=== PATIENT | male | born 1990 | race Caucasian/White ===

== ENCOUNTER 2016-07-26 18:29 | Emergency (ER) | payer OTHER ==
[2016-07-26] MEDS ORDERED: DEXTROSE 50%-WATER 50 ML SYRINGE IVP STA (18:51)
[2016-07-26] MEDS ORDERED: ONDANSETRON 4 MG/2 ML VIAL IVP STA (18:51)
[2016-07-26] MEDS ORDERED: SODIUM CHLORIDE 0.9% 500 ML IV STA (18:51)
[2016-07-26 19:07] LABS: Glucose,Whole Blood 49 mg/dL (75-99)
--- NOTE | 2016-07-26 19:07 | ED ---
Nausea/Vomiting/Diarrhea HPI - General Chief complaint: Nausea/Vomiting/Diarrhea Stated complaint: Diabetes/Vomiting Time Seen by Provider: 07/26/16 18:51 Source: patient, RN notes reviewed Mode of arrival: wheelchair Limitations: no limitations - History of Present Illness Initial comments: This patient is a 26-year-old man with a history of diabetes who presents to be evaluated for nausea and vomiting. The patient states that he had been feeling in his usual state of health last night. He woke up this morning and then started having repeated episodes of vomiting. The patient states he is not able to keep down any fluids at all. When they checked his blood sugar this morning was reading high. He states he did take a shot of insulin. When the vomiting continued he came here to have evaluation and treatment. Patient is denying fevers or chills. No cough or shortness of breath. He does have some mild diffuse abdominal pain. No change in bowel movements. The patient states she had seen his clinic doctor last week over concerns about a possible toe infection, he states he was given some antibiotics and it is a bit better. MD complaint: nausea, vomiting -: hour(s) Description of Vomiting: food contents, watery Associated Abdominal Pain: Yes Location: diffuse Severity: mild Quality: aching Consistency: constant Improves with: none Worsens with: none Associated Symptoms: denies other symptoms - Related Data Home Medications Medication Instructions Recorded Confirmed Insulin Glargine [Lantus] 40 unit SQ DAILY@1500 04/26/14 07/26/16 Gabapentin [Neurontin] 100 mg PO DAILY PRN 07/26/16 07/26/16 Insulin Glulisine [Apidra] 15 unit SQ AC-TID 07/26/16 07/26/16 Previous Rx's Medication Instructions Recorded Ondansetron Odt [Zofran ODT] 4 mg PO Q8HR PRN #10 tab 07/26/16 Allergies Allergy/AdvReac Type Severity Reaction Status Date / Time latex Allergy Rash/Hives Verified 07/26/16 18:50 Review of Systems ROS Statement: Those systems with pertinent positive or pertinent negative responses have been documented in the HPI. ROS Other: All systems not noted in ROS Statement are negative. Constitutional: Denies: fever, chills, weakness Respiratory: Denies: cough, dyspnea, wheezes Cardiovascular: Denies: chest pain, edema, syncope Gastrointestinal: Reports: abdominal pain, nausea, vomiting. Denies: diarrhea, hematemesis, melena, hematochezia Genitourinary: Denies: dysuria, hematuria Musculoskeletal: Denies: back pain Skin: Reports: as per HPI, change in color (Left great toe) Neurological: Denies: headache, weakness, numbness Past Medical History Past Medical History: Asthma, Diabetes Mellitus History of Any Multi-Drug Resistant Organisms: MRSA Date of last positivie culture/infection: 04/26/2014 MDRO Source:: Face Past Surgical History: No Surgical Hx Reported Additional Past Surgical History / Comment(s): right hand, left leg, eustachian tubes Past Anesthesia/Blood Transfusion Reactions: No Reported Reaction Past Psychological History: Anxiety, Bipolar, Depression Additional Psychological History / Comment(s): patient states he has been diagnosed with anxiety/depression/bipolar but does not currently take any medications. Smoking Status: Current every day smoker Past Alcohol Use History: Rare Past Drug Use History: Marijuana - Past Family History Father Family Medical History: Hyperlipidemia, Hypertension Mother Family Medical History: COPD Additional Family Medical History / Comment(s): home O2, Brother(s) Family Medical History: No Reported History General Exam Limitations: no limitations General appearance: alert, in no apparent distress Head exam: Present: atraumatic, normocephalic Eye exam: Present: normal appearance. Absent: scleral icterus, conjunctival injection ENT exam: Present: mucous membranes dry Neck exam: Present: normal inspection, full ROM Respiratory exam: Present: normal lung sounds bilaterally. Absent: respiratory distress, wheezes, rales, rhonchi, stridor Cardiovascular Exam: Present: normal rhythm, tachycardia, systolic murmur ( Grade 1/6 systolic ejection murmur). Absent: diastolic murmur, rubs, gallop GI/Abdominal exam: Present: soft. Absent: distended, tenderness, guarding, rebound, mass Extremities exam: Present: normal inspection, normal capillary refill, other ( Inspection of the patient's great toe does not show any apparent cellulitis or paronychia). Absent: pedal edema, calf tenderness Neurological exam: Present: alert Skin exam: Present: warm, dry, intact, normal color. Absent: rash Course Vital Signs 07/26/16 07/26/16 18:31 20:55 Temperature 97.5 F L 98.6 F Pulse Rate 108 H 80 Respiratory 20 18 Rate Blood Pressure 159/85 146/73 O2 Sat by Pulse 99 98 Oximetry Medical Decision Making - Medical Decision Making Patient's 26-year-old male diabetes who comes in for multiple rounds of vomiting. He did respond well to antiemetics and IV fluids. He was then tolerating oral intake. He felt well enough to go home. We did discuss return parameters and appropriate follow-up. - Lab Data Result diagrams: 07/26/16 19:00 07/26/16 19:00 Lab Results 07/26/16 07/26/16 07/26/16 Range/Units 19:00 19:00 19:00 WBC 14.4 H (3.8-10.6) k/uL RBC 5.40 (4.30-5.90) m/uL Hgb 16.2 (13.0-17.5) gm/dL Hct 50.1 (39.0-53.0) % MCV 92.7 (80.0-100.0) fL MCH 30.0 (25.0-35.0) pg MCHC 32.4 (31.0-37.0) g/dL RDW 13.7 (11.5-15.5) % Plt Count 405 (150-450) k/uL Neutrophils % 76 % Lymphocytes % 16 % Monocytes % 4 % Eosinophils % 0 % Basophils % 1 % Neutrophils # 11.0 H (1.3-7.7) k/uL Lymphocytes # 2.4 (1.0-4.8) k/uL Monocytes # 0.6 (0-1.0) k/uL Eosinophils # 0.1 (0-0.7) k/uL Basophils # 0.1 (0-0.2) k/uL Sodium 146 H (137-145) mmol/L Potassium 3.8 (3.5-5.1) mmol/L Chloride 106 (98-107) mmol/L Carbon Dioxide 26 (22-30) mmol/L Anion Gap 14 mmol/L BUN 23 H (9-20) mg/dL Creatinine 0.60 L (0.66-1.25) mg/dL Est GFR (MDRD) Af Amer >60 (>60 ml/min/1.73 sqM) Est GFR (MDRD) Non-Af >60 (>60 ml/min/1.73 sqM) Glucose 50 L* (74-99) mg/dL POC Glucose (mg/dL) (75-99) mg/dL POC Glu Mgmt Analyst ID Calcium 10.2 (8.4-10.2) mg/dL Total Bilirubin 0.7 (0.2-1.3) mg/dL AST 32 (17-59) U/L ALT 37 (21-72) U/L Alkaline Phosphatase 130 H (38-126) U/L Total Protein 7.9 (6.3-8.2) g/dL Albumin 4.6 (3.5-5.0) g/dL Amylase 53 (30-110) U/L Lipase 25 (23-300) U/L Urine Color Yellow Urine Appearance Clear (Clear) Urine pH 6.0 (5.0-8.0) Ur Specific [place] 1.024 (1.001-1.035) Urine Protein Trace H (Negative) Urine Glucose (UA) 4+ H (Negative) Urine Ketones 2+ H (Negative) Urine Blood Negative (Negative) Urine Nitrate Negative (Negative) Urine Bilirubin Negative (Negative) Urine Urobilinogen <2.0 (<2.0) mg/dL Ur Leukocyte Esterase Negative (Negative) Acetone, Qual Negative (Negative) 07/26/16 07/26/16 Range/Units 19:05 19:30 WBC (3.8-10.6) k/uL RBC (4.30-5.90) m/uL Hgb (13.0-17.5) gm/dL Hct (39.0-53.0) % MCV (80.0-100.0) fL MCH (25.0-35.0) pg MCHC (31.0-37.0) g/dL RDW (11.5-15.5) % Plt Count (150-450) k/uL Neutrophils % % Lymphocytes % % Monocytes % % Eosinophils % % Basophils % % Neutrophils # (1.3-7.7) k/uL Lymphocytes # (1.0-4.8) k/uL Monocytes # (0-1.0) k/uL Eosinophils # (0-0.7) k/uL Basophils # (0-0.2) k/uL Sodium (137-145) mmol/L Potassium (3.5-5.1) mmol/L Chloride (98-107) mmol/L Carbon Dioxide (22-30) mmol/L Anion Gap mmol/L BUN (9-20) mg/dL Creatinine (0.66-1.25) mg/dL Est GFR (MDRD) Af Amer (>60 ml/min/1.73 sqM) Est GFR (MDRD) Non-Af (>60 ml/min/1.73 sqM) Glucose (74-99) mg/dL POC Glucose (mg/dL) 49 L 167 H (75-99) mg/dL POC Glu Mgmt Analyst ID Ann Marie Shaver Parker Calcium (8.4-10.2) mg/dL Total Bilirubin (0.2-1.3) mg/dL AST (17-59) U/L ALT (21-72) U/L Alkaline Phosphatase (38-126) U/L Total Protein (6.3-8.2) g/dL Albumin (3.5-5.0) g/dL Amylase (30-110) U/L Lipase (23-300) U/L Urine Color Urine Appearance (Clear) Urine pH (5.0-8.0) Ur Specific [place] (1.001-1.035) Urine Protein (Negative) Urine Glucose (UA) (Negative) Urine Ketones (Negative) Urine Blood (Negative) Urine Nitrate (Negative) Urine Bilirubin (Negative) Urine Urobilinogen (<2.0) mg/dL Ur Leukocyte Esterase (Negative) Acetone, Qual (Negative) Disposition Clinical Impression: Vomiting Disposition: HOME SELF-CARE Condition: Fair Instructions: Acute Nausea and Vomiting (ED) Prescriptions: Ondansetron Odt [Zofran ODT] 4 mg PO Q8HR PRN #10 tab PRN Reason: Nausea Referrals: Azra Stewart MD [Primary Care Provider] - 1-2 days
[2016-07-26 19:24] LABS: Basophils # (A) 0.1 k/uL (0-0.2); Basophils % (A) 1 %; CH 31.4; CHCM 34.1; Eosinophils # (A) 0.1 k/uL (0-0.7); Eosinophils % (A) 0 %; HCT 50.1 % (39.0-53.0); HDW 2.39; HGB 16.2 gm/dL (13.0-17.5); Luc # (Auto) 0.31; Luc % (Auto) 2; Lymphocytes # (A) 2.4 k/uL (1.0-4.8); Lymphocytes % (A) 16 %; MCHC 32.4 g/dL (31.0-37.0); MCV 92.7 fL (80.0-100.0); Mean Platelet Volume 8.6; Monocytes # (A) 0.6 k/uL (0-1.0); Monocytes % (A) 4 %; Neutrophils % (A) 76 %; RDW 13.7 % (11.5-15.5); WBC 14.4 k/uL (3.8-10.6); WBC (Perox) 13.71
[2016-07-26 19:29] LABS: Appearance,Urine Clear (Clear); Bilirubin,Urine Negative (Negative); Glucose,Urine (UA) 4+ (Negative); Leukocyte Esterase,Urine Negative (Negative); Nitrite,Urine Negative (Negative); Protein,Urine Trace (Negative); Specific Gravity,Urine 1.024 (1.001-1.035); UA Billing (MACRO vs. MICRO) CHEM; Urobilinogen,Urine <2.0 mg/dL (<2.0)
[2016-07-26 19:32] LABS: Glucose,Whole Blood 167 mg/dL (75-99)
[2016-07-26 19:36] LABS: ALT 37 U/L (21-72); AST 32 U/L (17-59); Alkaline Phosphatase 130 U/L (38-126); Amylase 53 U/L (30-110); Anion Gap 14 mmol/L; Blood Urea Nitrogen 23 mg/dL (9-20); Calcium 10.2 mg/dL (8.4-10.2); Carbon Dioxide 26 mmol/L (22-30); Chloride 106 mmol/L (98-107); Non-African American GFR(MDRD) >60 (>60 ml/min/1.73 sqM); Potassium 3.8 mmol/L (3.5-5.1); Sodium 146 mmol/L (137-145); Total Bilirubin 0.7 mg/dL (0.2-1.3); Total Protein 7.9 g/dL (6.3-8.2)
[2016-07-26 19:38] LABS: Glucose 50 mg/dL (74-99)
[2016-07-26 20:07] LABS: Ketones,Urine 2+ (Negative)
[2016-07-26 20:55] VITALS: BP 146/73; PULSE 80; RESP 18; TEMP 98.6
[2016-07-27 07:45] LABS: Glucose,Whole Blood 55 mg/dL (75-99)
== END 2016-07-26 20:56 | disposition home or self-care (01) ==
LOC: EC 18:29
DX: R11.2 Nausea with vomiting, unspecified (principal); R10.9 Unspecified abdominal pain; E11.9 Type 2 diabetes mellitus without complications; F17.200 Nicotine dependence, unspecified, uncomplicated; Z79.4 Long term (current) use of insulin; Z79.899 Other long term (current) drug therapy; Z91.040 Latex allergy status
CPT/HCPCS: 36415; 80053; 82150; 82009; 83690; 85025; 81003; 99284; 96374; 96375; 96361 ×2; J2405

== ENCOUNTER 2017-06-03 16:38 | Emergency (ER) | payer OTHER ==
[2017-06-03] MEDS ORDERED: SODIUM CHLORIDE 0.9% 1,000 ML IV STA (17:17)
[2017-06-03] MEDS ORDERED: ONDANSETRON 4 MG/2 ML VIAL IVP STA (17:17)
--- NOTE | 2017-06-03 17:23 | ED ---
General Adult HPI - General Chief complaint: Abdominal Pain Stated complaint: FLU Time Seen by Provider: 06/03/17 16:50 Source: patient, EMS, RN notes reviewed Mode of arrival: EMS Limitations: no limitations - History of Present Illness Initial comments: This is a 27-year-old male who presents emergency Department complaining of vomiting since Tuesday. Patient states his been nonstop and cannot any liquids or food. Patient denies any diarrhea. Patient complains of epigastric abdominal pain but states his whole abdomen is somewhat tender from all the vomiting. Patient denies any fever chills. Patient denies any chest pain palpitations difficulty breathing or shortness of breath. Patient denies drinking any alcohol. Patient states he is a diabetic. Patient denies any injury or trauma to the area. - Related Data Home Medications Medication Instructions Recorded Confirmed Insulin Glargine [Lantus] 40 unit SQ DAILY@1500 04/26/14 06/03/17 Insulin Glulisine [Apidra] 15 unit SQ AC-TID 07/26/16 06/03/17 Previous Rx's Medication Instructions Recorded Ondansetron [Zofran ODT] 4 mg PO Q8HR PRN #10 06/03/17 Allergies Allergy/AdvReac Type Severity Reaction Status Date / Time latex Allergy Rash/Hives Verified 06/03/17 17:12 Review of Systems ROS Statement: Those systems with pertinent positive or pertinent negative responses have been documented in the HPI. ROS Other: All systems not noted in ROS Statement are negative. Past Medical History Past Medical History: Asthma, Diabetes Mellitus History of Any Multi-Drug Resistant Organisms: MRSA Date of last positivie culture/infection: 04/26/2014 MDRO Source:: Face Past Surgical History: No Surgical Hx Reported Additional Past Surgical History / Comment(s): right hand, left leg, eustachian tubes Past Anesthesia/Blood Transfusion Reactions: No Reported Reaction Past Psychological History: Anxiety, Bipolar, Depression Smoking Status: Current every day smoker Past Alcohol Use History: None Reported Past Drug Use History: Marijuana - Past Family History Father Family Medical History: Hyperlipidemia, Hypertension Mother Family Medical History: COPD Additional Family Medical History / Comment(s): home O2, Brother(s) Family Medical History: No Reported History General Exam - General Exam Comments Initial Comments: GENERAL: Patient is well-developed and well-nourished. Patient is nontoxic and well- hydrated and is in mild distress. ENT: Neck is soft and supple. No significant lymphadenopathy is noted. Oropharynx is clear. Moist mucous membranes. Neck has full range of motion without eliciting any pain. EYES: The sclera were anicteric and conjunctiva were pink and moist. Extraocular movements were intact and pupils were equal round and reactive to light. Eyelids were unremarkable. PULMONARY: Unlabored respirations. Good breath sounds bilaterally. No audible rales rhonchi or wheezing was noted. CARDIOVASCULAR: There is a regular rate and rhythm without any murmurs gallops or rubs. ABDOMEN: Epigastric abdominal pain no rebound or guarding. SKIN: Skin is clear with no lesions or rashes and otherwise unremarkable. NEUROLOGIC: Patient is alert and oriented x3. Cranial nerves II through XII are grossly intact. Motor and sensory are also intact. Normal speech, volume and content. Symmetrical smile. MUSCULOSKELETAL: Normal extremities with adequate strength and full range of motion. No lower extremity swelling or edema. No calf tenderness. LYMPHATICS: No significant lymphadenopathy is noted PSYCHIATRIC: Normal psychiatric evaluation. Limitations: no limitations Course Vital Signs 06/03/17 06/03/17 06/03/17 16:48 16:50 18:13 Temperature 98.4 F Pulse Rate 82 80 77 Respiratory 17 20 18 Rate Blood Pressure 177/82 177/82 O2 Sat by Pulse 96 100 99 Oximetry Medical Decision Making - Medical Decision Making Patient got Zofran and a liter of fluid to the emergency department was feeling considerably better. On reexamination of the patient's abdomen was only mildly tender. - Lab Data Result diagrams: 06/03/17 17:45 06/03/17 17:45 Lab Results 06/03/17 06/03/17 Range/Units 17:45 17:45 WBC 11.5 H (3.8-10.6) k/uL RBC 5.27 (4.30-5.90) m/uL Hgb 16.1 (13.0-17.5) gm/dL Hct 47.4 (39.0-53.0) % MCV 89.9 (80.0-100.0) fL MCH 30.5 (25.0-35.0) pg MCHC 33.9 (31.0-37.0) g/dL RDW 12.9 (11.5-15.5) % Plt Count 296 (150-450) k/uL Neutrophils % 82 % Lymphocytes % 12 % Monocytes % 4 % Eosinophils % 0 % Basophils % 0 % Neutrophils # 9.4 H (1.3-7.7) k/uL Lymphocytes # 1.3 (1.0-4.8) k/uL Monocytes # 0.5 (0-1.0) k/uL Eosinophils # 0.0 (0-0.7) k/uL Basophils # 0.0 (0-0.2) k/uL Sodium 139 (137-145) mmol/L Potassium 3.4 L (3.5-5.1) mmol/L Chloride 101 (98-107) mmol/L Carbon Dioxide 28 (22-30) mmol/L Anion Gap 10 mmol/L BUN 17 (9-20) mg/dL Creatinine 0.65 L (0.66-1.25) mg/dL Est GFR (MDRD) Af Amer >60 (>60 ml/min/1.73 sqM) Est GFR (MDRD) Non-Af >60 (>60 ml/min/1.73 sqM) Glucose 113 H (74-99) mg/dL Calcium 9.6 (8.4-10.2) mg/dL Total Bilirubin 0.7 (0.2-1.3) mg/dL AST 29 (17-59) U/L ALT 39 (21-72) U/L Alkaline Phosphatase 101 (38-126) U/L Total Protein 7.1 (6.3-8.2) g/dL Albumin 4.1 (3.5-5.0) g/dL Amylase 61 (30-110) U/L Lipase 18 L (23-300) U/L Disposition Clinical Impression: Acute vomiting Disposition: HOME SELF-CARE Condition: Good Instructions: Acute Nausea and Vomiting (ED) Prescriptions: Ondansetron [Zofran ODT] 4 mg PO Q8HR PRN #10 PRN Reason: Nausea Referrals: Azra Stewart MD [Primary Care Provider] - 1-2 days Time of Disposition: 18:50
[2017-06-03 17:54] LABS: Basophils % (A) 0 %; Eosinophils % (A) 0 %; HCT 47.4 % (39.0-53.0); HGB 16.1 gm/dL (13.0-17.5); Lymphocytes # (A) 1.3 k/uL (1.0-4.8); Lymphocytes % (A) 12 %; MCH 30.5 pg (25.0-35.0); MCHC 33.9 g/dL (31.0-37.0); MCV 89.9 fL (80.0-100.0); Mean Platelet Volume 7.2; Monocytes # (A) 0.5 k/uL (0-1.0); Monocytes % (A) 4 %; Neutrophils # (A) 9.4 k/uL (1.3-7.7); Neutrophils % (A) 82 %; Platelet Count 296 k/uL (150-450); RBC 5.27 m/uL (4.30-5.90); RDW 12.9 % (11.5-15.5); WBC 11.5 k/uL (3.8-10.6)
[2017-06-03 18:09] LABS: ALT 39 U/L (21-72); AST 29 U/L (17-59); Albumin 4.1 g/dL (3.5-5.0); Alkaline Phosphatase 101 U/L (38-126); Amylase 61 U/L (30-110); Anion Gap 10 mmol/L; Blood Urea Nitrogen 17 mg/dL (9-20); Calcium 9.6 mg/dL (8.4-10.2); Carbon Dioxide 28 mmol/L (22-30); Chloride 101 mmol/L (98-107); Glucose 113 mg/dL (74-99); Lipase 18 U/L (23-300); Potassium 3.4 mmol/L (3.5-5.1); Sodium 139 mmol/L (137-145); Total Bilirubin 0.7 mg/dL (0.2-1.3); Total Protein 7.1 g/dL (6.3-8.2)
[2017-06-03 18:16] VITALS: RESP 18
--- NOTE | 2017-06-03 18:46 | XR ---
EXAMINATION TYPE: XR KUB DATE OF EXAM: 06/03/2017 6:35 PM CLINICAL HISTORY: Nausea, vomiting and abdominal pain for 3 days TECHNIQUE: Single upright KUB image of the abdomen is obtained. COMPARISON: 02/08/2015. FINDINGS: There is a paucity of gas within the upper abdomen. No dilated loops of small bowel or larg e bowel. Gas and fecal material is seen in non-distended colon. No pneumoperitoneum or abnormal calci fications. The lung bases are clear and the osseous structures are intact. Mild levoscoliotic curvatu re of the lumbar spine is likely partially positional although upright images are obtained. Incidenta l note is made of partial sacralization of L5 vertebral body on the left. IMPRESSION: Nonobstructive bowel gas pattern.
[2017-06-03 19:34] VITALS: BP 152/94; PULSE 75; TEMP 98.9
== END 2017-06-03 19:45 | disposition home or self-care (01) ==
LOC: EC 16:38
DX: R11.10 Vomiting, unspecified (principal); R10.13 Epigastric pain; E11.9 Type 2 diabetes mellitus without complications; F17.200 Nicotine dependence, unspecified, uncomplicated; Z79.4 Long term (current) use of insulin; Z91.040 Latex allergy status; Z86.14 Personal history of Methicillin resistant Staphylococcus aureus infection
CPT/HCPCS: 36415; 80053; 82150; 83690; 85025; 74000; 99284; 96374; 96361; J2405

== ENCOUNTER 2017-07-28 23:09 | Emergency (ER) | payer OTHER ==
[2017-07-28 23:30] LABS: Glucose,Whole Blood 80 mg/dL (75-99)
[2017-07-28] MEDS ORDERED: SODIUM CHLORIDE 0.9% 2,000 ML IV ONE (23:45)
[2017-07-28] MEDS ORDERED: SODIUM CHLORIDE 0.9% 1,000 ML IV SCH (23:45)
--- NOTE | 2017-07-28 23:50 | ED ---
General Adult HPI - General Chief complaint: Nausea/Vomiting/Diarrhea Stated complaint: Vomiting/Fever Time Seen by Provider: 07/28/17 23:34 Source: patient Mode of arrival: ambulatory Limitations: no limitations - History of Present Illness Initial comments: Patient is a 27-year-old male with a history of type 1 diabetes who presents with a chief complaint of nausea vomiting and abdominal pain for 4 days. Patient states he came to the emergency department today because he is concerned that his sugars have been very labile. Patient cannot identify an inciting incident. There are no aggravating or alleviating factors. Timing is constant. Patient complains of headache, abdominal pain, nausea and vomiting. The patient states he has been having trouble keeping solids or liquids down. He states that his urine has become very dark. Patient states that he has been in DKA before and that's what he is concerned for today. Patient states his last dose of insulin was 20 units of regular insulin at about 7:00 this evening - Related Data Home Medications Medication Instructions Recorded Confirmed Insulin Glargine [Lantus] 40 unit SQ DAILY@1500 04/26/14 07/28/17 Insulin Glulisine [Apidra] 15 unit SQ AC-TID 07/26/16 07/28/17 Bismuth Subsalicylate 262 mg PO Q4H PRN 07/28/17 07/28/17 [Pepto-Bismol] Previous Rx's Medication Instructions Recorded Ondansetron [Zofran ODT] 4 mg PO Q8HR #20 tab 07/29/17 Allergies Allergy/AdvReac Type Severity Reaction Status Date / Time latex Allergy Rash/Hives Verified 07/28/17 23:29 Review of Systems ROS Statement: Those systems with pertinent positive or pertinent negative responses have been documented in the HPI. ROS Other: All systems not noted in ROS Statement are negative. Constitutional: Reports: fever, chills Respiratory: Reports: cough Gastrointestinal: Reports: abdominal pain, nausea, vomiting Genitourinary: Reports: dysuria, frequency Neurological: Reports: headache Past Medical History Past Medical History: Asthma, Diabetes Mellitus History of Any Multi-Drug Resistant Organisms: MRSA Date of last positivie culture/infection: 04/26/2014 MDRO Source:: Face Past Surgical History: No Surgical Hx Reported Additional Past Surgical History / Comment(s): right hand, left leg, eustachian tubes Past Anesthesia/Blood Transfusion Reactions: No Reported Reaction Past Psychological History: Anxiety, Bipolar, Depression Smoking Status: Current every day smoker Past Alcohol Use History: None Reported Past Drug Use History: Marijuana - Past Family History Father Family Medical History: Hyperlipidemia, Hypertension Mother Family Medical History: COPD Additional Family Medical History / Comment(s): home O2, Brother(s) Family Medical History: No Reported History General Exam Limitations: no limitations General appearance: alert, in no apparent distress Head exam: Present: atraumatic, normocephalic Eye exam: Present: normal appearance ENT exam: Present: mucous membranes moist Neck exam: Present: normal inspection Respiratory exam: Present: normal lung sounds bilaterally. Absent: respiratory distress Cardiovascular Exam: Present: normal rhythm, tachycardia GI/Abdominal exam: Present: soft, tenderness (Patient has generalized abdominal pain to palpation). Absent: distended Rectal exam: Present: deferred Extremities exam: Present: normal inspection Back exam: Absent: CVA tenderness (R), CVA tenderness (L) Neurological exam: Present: alert, oriented X3 Psychiatric exam: Present: normal affect, normal mood Skin exam: Present: warm, dry, intact Course Vital Signs 07/28/17 23:13 Temperature 98.4 F Pulse Rate 120 H Respiratory 16 Rate Blood Pressure 138/98 O2 Sat by Pulse 100 Oximetry Medical Decision Making - Medical Decision Making Patient presents with a chief complaint of nausea, vomiting, abdominal pain, and headache for 4 days. Patient is a type I diabetic. On initial evaluation, patient is tachycardic, sustained at 120 bpm. Vital signs are otherwise stable. Patient is in no acute distress. At this time there is concern for DKA , blood sugar on arrival is 80 however patient has been increasing his insulin at home. Patient will be evaluated with basic labs, acetone, VBG, and urinalysis. 12:56 AM Lab evaluation of this patient is remarkable for a mild leukocytosis of 14.5. Electrolytes and renal function are within normal limits, anion gap is 15. Patient does not have any ketones in his blood. Urinalysis for infection. Chest x-ray shows no acute process. Currently pending venous blood gas. Reexamination, patient remained stable. At this time, DKA appears less likely. Patient has had 2 L of IV fluid. 1:15 AM Venous blood gas shows a pH of 7.46. At this time, patient is not in DKA. He' ll be given the rest of his fluid bolus, he is able to take by mouth intake. Prescriptions written for Zofran. Patient instructed to follow up with his primary care doctor in 1-2 days or return to the emergency department for reevaluation in 12-24 hours if symptoms are worse. - Lab Data Result diagrams: 07/29/17 00:00 07/29/17 00:00 Lab Results 07/28/17 07/28/17 07/29/17 Range/Units 00:26 23:26 00:00 WBC (3.8-10.6) k/uL RBC (4.30-5.90) m/uL Hgb (13.0-17.5) gm/dL Hct (39.0-53.0) % MCV (80.0-100.0) fL MCH (25.0-35.0) pg MCHC (31.0-37.0) g/dL RDW (11.5-15.5) % Plt Count (150-450) k/uL Neutrophils % % Lymphocytes % % Monocytes % % Eosinophils % % Basophils % % Neutrophils # (1.3-7.7) k/uL Lymphocytes # (1.0-4.8) k/uL Monocytes # (0-1.0) k/uL Eosinophils # (0-0.7) k/uL Basophils # (0-0.2) k/uL VBG pH 7.46 H (7.31-7.41) VBG pCO2 45 (37-51) mmHg VBG HCO3 32 H (24-28) mmol/L Sodium 142 (137-145) mmol/L Potassium 3.8 (3.5-5.1) mmol/L Chloride 97 L (98-107) mmol/L Carbon Dioxide 30 (22-30) mmol/L Anion Gap 15 mmol/L BUN 30 H (9-20) mg/dL Creatinine 0.60 L (0.66-1.25) mg/dL Est GFR (MDRD) Af Amer >60 (>60 ml/min/1.73 sqM) Est GFR (MDRD) Non-Af >60 (>60 ml/min/1.73 sqM) Glucose 102 H (74-99) mg/dL POC Glucose (mg/dL) 80 (75-99) mg/dL POC Glu Equipment Maintenance Superintendent ID Denise Salazar Calcium 10.3 H (8.4-10.2) mg/dL Total Bilirubin 1.1 (0.2-1.3) mg/dL AST 23 (17-59) U/L ALT 16 L (21-72) U/L Alkaline Phosphatase 128 H (38-126) U/L Total Protein 8.3 H (6.3-8.2) g/dL Albumin 4.7 (3.5-5.0) g/dL Lipase 30 (23-300) U/L Urine Color Urine Appearance (Clear) Urine pH (5.0-8.0) Ur Specific [place] (1.001-1.035) Urine Protein (Negative) Urine Glucose (UA) (Negative) Urine Ketones (Negative) Urine Blood (Negative) Urine Nitrite (Negative) Urine Bilirubin (Negative) Urine Urobilinogen (<2.0) mg/dL Ur Leukocyte Esterase (Negative) Urine RBC (0-5) /hpf Urine WBC (0-5) /hpf Urine Bacteria (None) /hpf Urine Mucus (None) /hpf Acetone, Qual Negative (Negative) Influenza Type A RNA (Not Detectd) Influenza Type B (PCR) (Not Detectd) 07/29/17 07/29/17 07/29/17 Range/Units 00:00 00:00 00:00 WBC 14.8 H (3.8-10.6) k/uL RBC 5.75 (4.30-5.90) m/uL Hgb 17.3 (13.0-17.5) gm/dL Hct 54.1 H (39.0-53.0) % MCV 94.2 (80.0-100.0) fL MCH 30.1 (25.0-35.0) pg MCHC 32.0 (31.0-37.0) g/dL RDW 12.9 (11.5-15.5) % Plt Count 330 (150-450) k/uL Neutrophils % 78 % Lymphocytes % 13 % Monocytes % 6 % Eosinophils % 1 % Basophils % 0 % Neutrophils # 11.5 H (1.3-7.7) k/uL Lymphocytes # 1.9 (1.0-4.8) k/uL Monocytes # 0.9 (0-1.0) k/uL Eosinophils # 0.1 (0-0.7) k/uL Basophils # 0.0 (0-0.2) k/uL VBG pH (7.31-7.41) VBG pCO2 (37-51) mmHg VBG HCO3 (24-28) mmol/L Sodium (137-145) mmol/L Potassium (3.5-5.1) mmol/L Chloride (98-107) mmol/L Carbon Dioxide (22-30) mmol/L Anion Gap mmol/L BUN (9-20) mg/dL Creatinine (0.66-1.25) mg/dL Est GFR (MDRD) Af Amer (>60 ml/min/1.73 sqM) Est GFR (MDRD) Non-Af (>60 ml/min/1.73 sqM) Glucose (74-99) mg/dL POC Glucose (mg/dL) (75-99) mg/dL POC Glu Equipment Maintenance Superintendent ID Calcium (8.4-10.2) mg/dL Total Bilirubin (0.2-1.3) mg/dL AST (17-59) U/L ALT (21-72) U/L Alkaline Phosphatase (38-126) U/L Total Protein (6.3-8.2) g/dL Albumin (3.5-5.0) g/dL Lipase (23-300) U/L Urine Color Yellow Urine Appearance Clear (Clear) Urine pH 7.0 (5.0-8.0) Ur Specific [place] 1.027 (1.001-1.035) Urine Protein 2+ H (Negative) Urine Glucose (UA) 2+ H (Negative) Urine Ketones 3+ H (Negative) Urine Blood Negative (Negative) Urine Nitrite Negative (Negative) Urine Bilirubin Negative (Negative) Urine Urobilinogen 3.0 (<2.0) mg/dL Ur Leukocyte Esterase Negative (Negative) Urine RBC <1 (0-5) /hpf Urine WBC 1 (0-5) /hpf Urine Bacteria Rare H (None) /hpf Urine Mucus Rare H (None) /hpf Acetone, Qual (Negative) Influenza Type A RNA Not Detected (Not Detectd) Influenza Type B (PCR) Not Detected (Not Detectd) Disposition Clinical Impression: Dehydration, Nausea and vomiting Disposition: HOME SELF-CARE Condition: Good Instructions: Acute Nausea and Vomiting (ED) Prescriptions: Ondansetron [Zofran ODT] 4 mg PO Q8HR #20 tab Referrals: Azra Stewart MD [Primary Care Provider] - 1-2 days
[2017-07-29] MEDS ORDERED: ONDANSETRON 4 MG/2 ML VIAL IVP STA (00:16)
[2017-07-29 00:23] LABS: Basophils % (A) 0 %; Eosinophils # (A) 0.1 k/uL (0-0.7); Eosinophils % (A) 1 %; HCT 54.1 % (39.0-53.0); HGB 17.3 gm/dL (13.0-17.5); Lymphocytes # (A) 1.9 k/uL (1.0-4.8); Lymphocytes % (A) 13 %; MCH 30.1 pg (25.0-35.0); MCV 94.2 fL (80.0-100.0); Mean Platelet Volume 7.2; Monocytes # (A) 0.9 k/uL (0-1.0); Monocytes % (A) 6 %; Neutrophils # (A) 11.5 k/uL (1.3-7.7); Neutrophils % (A) 78 %; Platelet Count 330 k/uL (150-450); RBC 5.75 m/uL (4.30-5.90); RDW 12.9 % (11.5-15.5); WBC 14.8 k/uL (3.8-10.6)
[2017-07-29 00:24] LABS: Appearance,Urine Clear (Clear); Bacteria,Urine Rare /hpf; Bilirubin,Urine Negative (Negative); Blood,Urine Negative (Negative); Color,Urine Yellow; Glucose,Urine (UA) 2+ (Negative); Leukocyte Esterase,Urine Negative (Negative); Mucus,Urine Rare /hpf; Nitrite,Urine Negative (Negative); Protein,Urine 2+ (Negative); RBC,Urine <1 /hpf (0-5); Specific Gravity,Urine 1.027 (1.001-1.035); WBC,Urine 1 /hpf (0-5)
[2017-07-29 00:33] LABS: Ketones,Urine 3+ (Negative)
[2017-07-29 00:36] LABS: ALT 16 U/L (21-72); AST 23 U/L (17-59); Albumin 4.7 g/dL (3.5-5.0); Alkaline Phosphatase 128 U/L (38-126); Anion Gap 15 mmol/L; Blood Urea Nitrogen 30 mg/dL (9-20); Calcium 10.3 mg/dL (8.4-10.2); Carbon Dioxide 30 mmol/L (22-30); Chloride 97 mmol/L (98-107); Glucose 102 mg/dL (74-99); Lipase 30 U/L (23-300); Potassium 3.8 mmol/L (3.5-5.1); Sodium 142 mmol/L (137-145); Total Bilirubin 1.1 mg/dL (0.2-1.3); Total Protein 8.3 g/dL (6.3-8.2)
[2017-07-29 00:56] LABS: VBG PH 7.46 (7.31-7.41)
--- NOTE | 2017-07-29 01:06 | XR ---
EXAMINATION TYPE: XR chest 2V DATE OF EXAM: 07/29/2017 COMPARISON: 02/08/2015 HISTORY: Asthma. Chest pain TECHNIQUE: Frontal and lateral views of the chest are obtained. FINDINGS: Heart and mediastinum are normal. Lungs are clear. Diaphragm is normal. Bony thorax appear s normal. IMPRESSION: Normal chest. No change.
[2017-07-29 02:13] VITALS: BP 104/87; PULSE 84; RESP 18; TEMP 99.2
== END 2017-07-29 02:13 | disposition home or self-care (01) ==
LOC: EC 23:09
DX: E86.0 Dehydration (principal); R11.2 Nausea with vomiting, unspecified; R00.0 Tachycardia, unspecified; D72.829 Elevated white blood cell count, unspecified; R51 Headache; R10.84 Generalized abdominal pain; E10.10 Type 1 diabetes mellitus with ketoacidosis without coma; F17.200 Nicotine dependence, unspecified, uncomplicated; Z79.4 Long term (current) use of insulin; Z91.040 Latex allergy status; Z86.14 Personal history of Methicillin resistant Staphylococcus aureus infection
CPT/HCPCS: 36415 ×2; 80053; 82803; 82009; 83690; 85025; 81001; 87502; 71046; 99284; 96374; 96361 ×2; J2405

== ENCOUNTER 2017-09-03 20:03 | Emergency (ER) | payer OTHER ==
[2017-09-03 20:23] LABS: Glucose,Whole Blood 218 mg/dL (75-99)
[2017-09-03] MEDS ORDERED: SODIUM CHLORIDE 0.9% 1,000 ML IV STA (21:01)
[2017-09-03] MEDS ORDERED: ONDANSETRON 4 MG/2 ML VIAL IVP STA (21:02)
[2017-09-03 21:23] LABS: Appearance,Urine Clear (Clear); Bilirubin,Urine Negative (Negative); Blood,Urine Negative (Negative); Color,Urine Yellow; Glucose,Urine (UA) 4+ (Negative); Leukocyte Esterase,Urine Negative (Negative); Mucus,Urine Occasional /hpf; Nitrite,Urine Negative (Negative); PH, Urine 6.5 (5.0-8.0); Protein,Urine 1+ (Negative); Specific Gravity,Urine 1.024 (1.001-1.035); Urobilinogen,Urine <2.0 mg/dL (<2.0); WBC,Urine 3 /hpf (0-5)
[2017-09-03 21:31] LABS: Basophils % (A) 0 %; Eosinophils % (A) 0 %; HCT 48.2 % (39.0-53.0); HGB 16.4 gm/dL (13.0-17.5); Lymphocytes # (A) 1.3 k/uL (1.0-4.8); Lymphocytes % (A) 11 %; MCH 29.9 pg (25.0-35.0); MCHC 33.9 g/dL (31.0-37.0); Monocytes # (A) 0.3 k/uL (0-1.0); Monocytes % (A) 3 %; Neutrophils # (A) 10.9 k/uL (1.3-7.7); Neutrophils % (A) 86 %; Platelet Count 318 k/uL (150-450); RBC 5.47 m/uL (4.30-5.90); RDW 13.5 % (11.5-15.5); WBC 12.7 k/uL (3.8-10.6)
[2017-09-03 21:32] LABS: Ketones,Urine 4+ (Negative)
[2017-09-03 21:35] LABS: ALT 27 U/L (21-72); AST 24 U/L (17-59); Albumin 4.3 g/dL (3.5-5.0); Alkaline Phosphatase 100 U/L (38-126); Amylase 62 U/L (30-110); Anion Gap 14 mmol/L; Blood Urea Nitrogen 25 mg/dL (9-20); Calcium 9.8 mg/dL (8.4-10.2); Carbon Dioxide 27 mmol/L (22-30); Chloride 103 mmol/L (98-107); Glucose 173 mg/dL (74-99); Lipase 19 U/L (23-300); Magnesium 1.7 mg/dL (1.6-2.3); Potassium 4.6 mmol/L (3.5-5.1); Sodium 144 mmol/L (137-145); Total Bilirubin 0.6 mg/dL (0.2-1.3); Total Protein 7.3 g/dL (6.3-8.2)
[2017-09-03 21:36] LABS: MCV 88.2 fL (80.0-100.0)
--- NOTE | 2017-09-03 22:18 | ED ---
Nausea/Vomiting/Diarrhea HPI - General Chief complaint: Nausea/Vomiting/Diarrhea Stated complaint: Vomiting Time Seen by Provider: 09/03/17 20:48 Source: EMS, RN notes reviewed Mode of arrival: EMS Limitations: no limitations - History of Present Illness Initial comments: This is a 27-year-old male with history of type 1 diabetes who presents to the emergency department with chief complaint of abdominal pain and nausea. Patient states that he began having mid abdominal cramping today. He admits to associated nausea and vomiting. He states that his blood sugar has been up and down all day. He states that he takes 15 units of insulin before each meal and 14 units of Lantus each evening. Denies fevers or chills, shortness of breath or chest pain, diarrhea or constipation, urinary symptoms such as dysuria or hematuria. Patient does admit to having multiple previous episodes of DKA. - Related Data Home Medications Medication Instructions Recorded Confirmed Insulin Glargine [Lantus] 40 unit SQ DAILY@1500 04/26/14 09/03/17 Insulin Glulisine [Apidra] 15 unit SQ AC-TID 07/26/16 09/03/17 Previous Rx's Medication Instructions Recorded Ibuprofen 600 mg PO Q6HR #20 tablet 09/03/17 Penicillin V Potassium [Pen Vee K] 500 mg PO QID 10 Days tab 09/03/17 Allergies Allergy/AdvReac Type Severity Reaction Status Date / Time latex Allergy Rash/Hives Verified 09/03/17 20:11 Review of Systems ROS Statement: Those systems with pertinent positive or pertinent negative responses have been documented in the HPI. ROS Other: All systems not noted in ROS Statement are negative. Past Medical History Past Medical History: Asthma, Diabetes Mellitus History of Any Multi-Drug Resistant Organisms: MRSA Date of last positivie culture/infection: 04/26/2014 MDRO Source:: Face Past Surgical History: No Surgical Hx Reported Additional Past Surgical History / Comment(s): right hand, left leg, eustachian tubes Past Anesthesia/Blood Transfusion Reactions: No Reported Reaction Past Psychological History: Anxiety, Bipolar, Depression Smoking Status: Current every day smoker Past Alcohol Use History: None Reported Past Drug Use History: Marijuana - Past Family History Father Family Medical History: Hyperlipidemia, Hypertension Mother Family Medical History: COPD Additional Family Medical History / Comment(s): home O2, Brother(s) Family Medical History: No Reported History General Exam - General Exam Comments Initial Comments: General: Awake and alert, well-developed; in no apparent distress. HEENT: Head atraumatic, normocephalic. Pupils are equal, round and reactive to light. Extraocular movements intact. Oropharynx moist without erythema or exudate. Poor dentition throughout. Tooth #13 is fractured. Multiple dental caries are noted. Tenderness on palpation of surrounding gumline. No masses or areas of fluctuance noted. Neck: Supple. Normal ROM. Cardiovascular: Regular rate and rhythm. No murmurs, rubs or gallops. Chest symmetrical. Respiratory: Lungs clear to auscultation bilaterally. No wheezes, rales or rhonchi. Normal respiratory effort with no use of accessory muscles. Abdomen: Soft, non-distended. Generalized tenderness on palpation. No rigidity , rebound or guarding. Normal bowel sounds in all 4 quadrants. Musculoskeletal: Normal ROM, no tenderness bilateral upper and lower extremities. Ambulating normally. Skin: [place], warm and dry without rashes or lesions. Neurological: Alert and oriented x3. CN II-XII grossly intact. Speech is fluent and answers are appropriate. No focal neuro deficits. Psychiatric: Normal mood and affect. No overt signs of depression or anxiety noted. Limitations: no limitations Course Vital Signs 09/03/17 20:05 Temperature 98.4 F Pulse Rate 83 Respiratory 18 Rate Blood Pressure 172/95 O2 Sat by Pulse 100 Oximetry Medical Decision Making - Medical Decision Making This is a 27-year-old male who presents to the emergency department with chief complaint of abdominal cramping and nausea. Patient is a type I diabetic. Patient was given IV fluids and antiemetics while in the emergency department. Blood glucose was 173. Acetone is negative. Patient does have 4+ glucose and 4 + ketones in the urine. Patient's vital signs have been stable and he is in no acute distress. He is not in DKA. Patient will be discharged home with recommendation to follow-up with his primary care provider and I strongly encouraged fluid intake. Patient will be given a starter pack for Zofran. He will be prescribed penicillin VK and ibuprofen for the dental pain. Findings and plan were discussed with patient who is in agreement. He will be discharged home at this time. All questions answered. - Lab Data Result diagrams: 09/03/17 21:14 09/03/17 21:14 Lab Results 09/03/17 09/03/17 09/03/17 Range/Units 20:18 21:06 21:14 WBC (3.8-10.6) k/uL RBC (4.30-5.90) m/uL Hgb (13.0-17.5) gm/dL Hct (39.0-53.0) % MCV (80.0-100.0) fL MCH (25.0-35.0) pg MCHC (31.0-37.0) g/dL RDW (11.5-15.5) % Plt Count (150-450) k/uL Neutrophils % % Lymphocytes % % Monocytes % % Eosinophils % % Basophils % % Neutrophils # (1.3-7.7) k/uL Lymphocytes # (1.0-4.8) k/uL Monocytes # (0-1.0) k/uL Eosinophils # (0-0.7) k/uL Basophils # (0-0.2) k/uL Sodium 144 (137-145) mmol/L Potassium 4.6 (3.5-5.1) mmol/L Chloride 103 (98-107) mmol/L Carbon Dioxide 27 (22-30) mmol/L Anion Gap 14 mmol/L BUN 25 H (9-20) mg/dL Creatinine 0.51 L (0.66-1.25) mg/dL Est GFR (CKD-EPI)AfAm >90 (>60 ml/min/1.73 sqM) Est GFR (CKD-EPI)NonAf >90 (>60 ml/min/1.73 sqM) Glucose 173 H (74-99) mg/dL POC Glucose (mg/dL) 218 H (75-99) mg/dL POC Glu [employer] ID Heidi Hidalgo Calcium 9.8 (8.4-10.2) mg/dL Phosphorus 3.0 (2.5-4.5) mg/dL Magnesium 1.7 (1.6-2.3) mg/dL Total Bilirubin 0.6 (0.2-1.3) mg/dL AST 24 (17-59) U/L ALT 27 (21-72) U/L Alkaline Phosphatase 100 (38-126) U/L Total Protein 7.3 (6.3-8.2) g/dL Albumin 4.3 (3.5-5.0) g/dL Amylase 62 (30-110) U/L Lipase 19 L (23-300) U/L Urine Color Yellow Urine Appearance Clear (Clear) Urine pH 6.5 (5.0-8.0) Ur Specific [place] 1.024 (1.001-1.035) Urine Protein 1+ H (Negative) Urine Glucose (UA) 4+ H (Negative) Urine Ketones 4+ H (Negative) Urine Blood Negative (Negative) Urine Nitrite Negative (Negative) Urine Bilirubin Negative (Negative) Urine Urobilinogen <2.0 (<2.0) mg/dL Ur Leukocyte Esterase Negative (Negative) Urine WBC 3 (0-5) /hpf Urine Mucus Occasional H (None) /hpf Acetone, Qual Negative (Negative) 09/03/17 Range/Units 21:14 WBC 12.7 H (3.8-10.6) k/uL RBC 5.47 (4.30-5.90) m/uL Hgb 16.4 (13.0-17.5) gm/dL Hct 48.2 (39.0-53.0) % MCV 88.2 D (80.0-100.0) fL MCH 29.9 (25.0-35.0) pg MCHC 33.9 (31.0-37.0) g/dL RDW 13.5 (11.5-15.5) % Plt Count 318 (150-450) k/uL Neutrophils % 86 % Lymphocytes % 11 % Monocytes % 3 % Eosinophils % 0 % Basophils % 0 % Neutrophils # 10.9 H (1.3-7.7) k/uL Lymphocytes # 1.3 (1.0-4.8) k/uL Monocytes # 0.3 (0-1.0) k/uL Eosinophils # 0.0 (0-0.7) k/uL Basophils # 0.0 (0-0.2) k/uL Sodium (137-145) mmol/L Potassium (3.5-5.1) mmol/L Chloride (98-107) mmol/L Carbon Dioxide (22-30) mmol/L Anion Gap mmol/L BUN (9-20) mg/dL Creatinine (0.66-1.25) mg/dL Est GFR (CKD-EPI)AfAm (>60 ml/min/1.73 sqM) Est GFR (CKD-EPI)NonAf (>60 ml/min/1.73 sqM) Glucose (74-99) mg/dL POC Glucose (mg/dL) (75-99) mg/dL POC Glu [employer] ID Calcium (8.4-10.2) mg/dL Phosphorus (2.5-4.5) mg/dL Magnesium (1.6-2.3) mg/dL Total Bilirubin (0.2-1.3) mg/dL AST (17-59) U/L ALT (21-72) U/L Alkaline Phosphatase (38-126) U/L Total Protein (6.3-8.2) g/dL Albumin (3.5-5.0) g/dL Amylase (30-110) U/L Lipase (23-300) U/L Urine Color Urine Appearance (Clear) Urine pH (5.0-8.0) Ur Specific [place] (1.001-1.035) Urine Protein (Negative) Urine Glucose (UA) (Negative) Urine Ketones (Negative) Urine Blood (Negative) Urine Nitrite (Negative) Urine Bilirubin (Negative) Urine Urobilinogen (<2.0) mg/dL Ur Leukocyte Esterase (Negative) Urine WBC (0-5) /hpf Urine Mucus (None) /hpf Acetone, Qual (Negative) Disposition Clinical Impression: Hyperglycemia due to type 1 diabetes mellitus, Nausea and vomiting, Dental caries Disposition: HOME SELF-CARE Condition: Good Instructions: Diabetic Hyperglycemia (ED), Toothache (ED) Additional Instructions: Please take medications as prescribed. Please follow up with a dentist within 1 -2 days. Please follow up with primary care provider within 1-2 days. Return to emergency department if symptoms should worsen or any concerns arise. Prescriptions: Ibuprofen 600 mg PO Q6HR #20 tablet Penicillin V Potassium [Pen Vee K] 500 mg PO QID 10 Days tab Referrals: Azra Stewart MD [Primary Care Provider] - 1-2 days Time of Disposition: 22:24
[2017-09-03] MEDS ORDERED: ONDANSETRON 4 MG ODT STARTER PACK 2 TAB BTL PO STA (22:23)
[2017-09-03 22:39] VITALS: BP 129/64; PULSE 75; RESP 16; TEMP 98.6
== END 2017-09-03 23:04 | disposition home or self-care (01) ==
LOC: EC 20:03
DX: E10.65 Type 1 diabetes mellitus with hyperglycemia (principal); R11.2 Nausea with vomiting, unspecified; K02.9 Dental caries, unspecified; F17.200 Nicotine dependence, unspecified, uncomplicated; Z86.14 Personal history of Methicillin resistant Staphylococcus aureus infection; Z91.040 Latex allergy status; Z79.4 Long term (current) use of insulin
CPT/HCPCS: 99284; 96374; 96361; 36415; 93005; 80053; 82150; 82009; 83690; 83735; 84100; 85025; 81001; 87086; J2405; S0119

== ENCOUNTER 2017-09-04 22:24 | Inpatient (IN) | payer OTHER ==
[2017-09-04] MEDS ORDERED: diphenhydrAMINE 50 MG/ML 1 ML VIAL IVP STA (22:52)
[2017-09-04] MEDS ORDERED: METOCLOPRAMIDE 5 MG/ML 2 ML VIAL IVP STA (22:52)
[2017-09-04] MEDS ORDERED: SODIUM CHLORIDE 0.9% 1,000 ML IV STA ×2 (22:52→23:53)
--- NOTE | 2017-09-04 23:17 | ED ---
Nausea/Vomiting/Diarrhea HPI - General Chief complaint: Nausea/Vomiting/Diarrhea Stated complaint: NVD Time Seen by Provider: 09/04/17 22:47 Source: patient, EMS, RN notes reviewed Mode of arrival: EMS Limitations: no limitations - History of Present Illness Initial comments: This is a 27-year-old male with history of type 1 diabetes who presents to the emergency department with chief complaint of nausea and vomiting. Patient was seen yesterday in the emergency department by myself with the same complaints. Patient was discharged home yesterday after all lab work came back unremarkable. He did have ketones and glucose in his urine but glucose was less than 200 and acetone was negative. Patient states that his symptoms have not improved since being seen yesterday. He states that he is unable to keep down any foods or liquids. He states that his blood sugar has been "up and down all day." He states that he has generalized abdominal cramping. - Related Data Home Medications Medication Instructions Recorded Confirmed Insulin Glargine [Lantus] 40 unit SQ DAILY@1500 04/26/14 09/04/17 Insulin Glulisine [Apidra] 15 unit SQ AC-TID 07/26/16 09/04/17 Previous Rx's Medication Instructions Recorded Ibuprofen 600 mg PO Q6HR #20 tablet 09/03/17 Penicillin V Potassium [Pen Vee K] 500 mg PO QID 10 Days tab 09/03/17 Allergies Allergy/AdvReac Type Severity Reaction Status Date / Time latex Allergy Rash/Hives Verified 09/04/17 22:38 Review of Systems ROS Statement: Those systems with pertinent positive or pertinent negative responses have been documented in the HPI. ROS Other: All systems not noted in ROS Statement are negative. Past Medical History Past Medical History: Asthma, Diabetes Mellitus History of Any Multi-Drug Resistant Organisms: MRSA Date of last positivie culture/infection: 04/26/2014 MDRO Source:: Face Past Surgical History: No Surgical Hx Reported Additional Past Surgical History / Comment(s): right hand, left leg, eustachian tubes Past Anesthesia/Blood Transfusion Reactions: No Reported Reaction Past Psychological History: Anxiety, Bipolar, Depression Smoking Status: Current every day smoker Past Alcohol Use History: None Reported Past Drug Use History: Marijuana - Past Family History Father Family Medical History: Hyperlipidemia, Hypertension Mother Family Medical History: COPD Additional Family Medical History / Comment(s): home O2, Brother(s) Family Medical History: No Reported History General Exam Limitations: no limitations Course Vital Signs 09/04/17 22:29 Temperature 99.7 F H Pulse Rate 87 Respiratory 18 Rate Blood Pressure 161/87 O2 Sat by Pulse 99 Oximetry Medical Decision Making - Medical Decision Making This is a 27-year-old male with history of type 1 diabetes who presents to the emergency department with chief complaint of nausea and vomiting. Patient does have a history of DKA. CBC reveals a white count of 14.0 with a left shift at 11.4. Sodium is 148, BUN 31, creatinine 0.57. Glucose is 276. Urine reveals 4 + glucose and 4+ ketones. Acetone is positive. Patient is currently DKA. He was started on an insulin bolus and drip as well as received 2 L of normal saline. Patient will be admitted to the floor under Dr. Moe. Patient was made aware of findings and plan. He is in agreement for admission. He is in no acute distress. All questions answered. - Lab Data Result diagrams: 09/04/17 23:14 09/04/17 23:14 Lab Results 09/04/17 09/04/17 09/04/17 Range/Units 23:14 23:14 23:32 WBC 14.0 H (3.8-10.6) k/uL RBC 5.61 (4.30-5.90) m/uL Hgb 17.2 (13.0-17.5) gm/dL Hct 49.9 (39.0-53.0) % MCV 89.0 (80.0-100.0) fL MCH 30.6 (25.0-35.0) pg MCHC 34.4 (31.0-37.0) g/dL RDW 13.5 (11.5-15.5) % Plt Count 308 (150-450) k/uL Neutrophils % 81 % Lymphocytes % 10 % Monocytes % 6 % Eosinophils % 0 % Basophils % 0 % Neutrophils # 11.4 H (1.3-7.7) k/uL Lymphocytes # 1.3 (1.0-4.8) k/uL Monocytes # 0.8 (0-1.0) k/uL Eosinophils # 0.0 (0-0.7) k/uL Basophils # 0.0 (0-0.2) k/uL Sodium 148 H (137-145) mmol/L Potassium 4.3 (3.5-5.1) mmol/L Chloride 102 (98-107) mmol/L Carbon Dioxide 24 (22-30) mmol/L Anion Gap 22 mmol/L BUN 31 H (9-20) mg/dL Creatinine 0.57 L (0.66-1.25) mg/dL Est GFR (CKD-EPI)AfAm >90 (>60 ml/min/1.73 sqM) Est GFR (CKD-EPI)NonAf >90 (>60 ml/min/1.73 sqM) Glucose 276 H (74-99) mg/dL Calcium 10.0 (8.4-10.2) mg/dL Phosphorus 3.6 (2.5-4.5) mg/dL Magnesium 2.0 (1.6-2.3) mg/dL Total Bilirubin 0.7 (0.2-1.3) mg/dL AST 20 (17-59) U/L ALT 34 (21-72) U/L Alkaline Phosphatase 124 (38-126) U/L Total Protein 7.8 (6.3-8.2) g/dL Albumin 4.6 (3.5-5.0) g/dL Amylase 56 (30-110) U/L Lipase 13 L (23-300) U/L Urine Color Yellow Urine Appearance Clear (Clear) Urine pH 5.5 (5.0-8.0) Ur Specific [place] 1.031 (1.001-1.035) Urine Protein 1+ H (Negative) Urine Glucose (UA) 4+ H (Negative) Urine Ketones 4+ H (Negative) Urine Blood Negative (Negative) Urine Nitrite Negative (Negative) Urine Bilirubin Negative (Negative) Urine Urobilinogen <2.0 (<2.0) mg/dL Ur Leukocyte Esterase Negative (Negative) Urine RBC 1 (0-5) /hpf Urine WBC 2 (0-5) /hpf Ur Squamous Epith Cells <1 (0-4) /hpf Urine Mucus Rare H (None) /hpf Acetone, Qual Positive (Negative) Influenza Type A RNA (Not Detectd) Influenza Type B (PCR) (Not Detectd) 09/04/17 Range/Units 23:32 WBC (3.8-10.6) k/uL RBC (4.30-5.90) m/uL Hgb (13.0-17.5) gm/dL Hct (39.0-53.0) % MCV (80.0-100.0) fL MCH (25.0-35.0) pg MCHC (31.0-37.0) g/dL RDW (11.5-15.5) % Plt Count (150-450) k/uL Neutrophils % % Lymphocytes % % Monocytes % % Eosinophils % % Basophils % % Neutrophils # (1.3-7.7) k/uL Lymphocytes # (1.0-4.8) k/uL Monocytes # (0-1.0) k/uL Eosinophils # (0-0.7) k/uL Basophils # (0-0.2) k/uL Sodium (137-145) mmol/L Potassium (3.5-5.1) mmol/L Chloride (98-107) mmol/L Carbon Dioxide (22-30) mmol/L Anion Gap mmol/L BUN (9-20) mg/dL Creatinine (0.66-1.25) mg/dL Est GFR (CKD-EPI)AfAm (>60 ml/min/1.73 sqM) Est GFR (CKD-EPI)NonAf (>60 ml/min/1.73 sqM) Glucose (74-99) mg/dL Calcium (8.4-10.2) mg/dL Phosphorus (2.5-4.5) mg/dL Magnesium (1.6-2.3) mg/dL Total Bilirubin (0.2-1.3) mg/dL AST (17-59) U/L ALT (21-72) U/L Alkaline Phosphatase (38-126) U/L Total Protein (6.3-8.2) g/dL Albumin (3.5-5.0) g/dL Amylase (30-110) U/L Lipase (23-300) U/L Urine Color Urine Appearance (Clear) Urine pH (5.0-8.0) Ur Specific [place] (1.001-1.035) Urine Protein (Negative) Urine Glucose (UA) (Negative) Urine Ketones (Negative) Urine Blood (Negative) Urine Nitrite (Negative) Urine Bilirubin (Negative) Urine Urobilinogen (<2.0) mg/dL Ur Leukocyte Esterase (Negative) Urine RBC (0-5) /hpf Urine WBC (0-5) /hpf Ur Squamous Epith Cells (0-4) /hpf Urine Mucus (None) /hpf Acetone, Qual (Negative) Influenza Type A RNA Not Detected (Not Detectd) Influenza Type B (PCR) Not Detected (Not Detectd) - EKG Data EKG Comments: EKG at 23:05:50. Sinus rhythm with short DE. Ventricular rate 73 bpm, DE interval 100, QRS duration 86, QT/QTC 376/414. No evidence of ST segment elevation or depression. Disposition Clinical Impression: Diabetic ketoacidosis, Hypernatremia, Hyperuricemia Disposition: ADMITTED IP TO THIS HOSP Condition: Stable Referrals: Azra Stewart MD [Primary Care Provider] - 1-2 days Time of Disposition: 00:22
[2017-09-04 23:23] LABS: Basophils % (A) 0 %; Eosinophils % (A) 0 %; HCT 49.9 % (39.0-53.0); HGB 17.2 gm/dL (13.0-17.5); Lymphocytes # (A) 1.3 k/uL (1.0-4.8); Lymphocytes % (A) 10 %; MCH 30.6 pg (25.0-35.0); MCHC 34.4 g/dL (31.0-37.0); Mean Platelet Volume 8.3; Monocytes # (A) 0.8 k/uL (0-1.0); Monocytes % (A) 6 %; Neutrophils # (A) 11.4 k/uL (1.3-7.7); Neutrophils % (A) 81 %; Platelet Count 308 k/uL (150-450); RBC 5.61 m/uL (4.30-5.90); RDW 13.5 % (11.5-15.5)
[2017-09-04 23:32] LABS: ALT 34 U/L (21-72); AST 20 U/L (17-59); Albumin 4.6 g/dL (3.5-5.0); Alkaline Phosphatase 124 U/L (38-126); Amylase 56 U/L (30-110); Anion Gap 22 mmol/L; Blood Urea Nitrogen 31 mg/dL (9-20); Carbon Dioxide 24 mmol/L (22-30); Chloride 102 mmol/L (98-107); Glucose 276 mg/dL (74-99); Lipase 13 U/L (23-300); Phosphorus 3.6 mg/dL (2.5-4.5); Potassium 4.3 mmol/L (3.5-5.1); Sodium 148 mmol/L (137-145); Total Bilirubin 0.7 mg/dL (0.2-1.3); Total Protein 7.8 g/dL (6.3-8.2)
[2017-09-04] MEDS ORDERED: INSULIN REGULAR 100 UNIT in SODIUM CHLORIDE 0.9% 100 ML IV SCH (23:45)
[2017-09-04 23:46] LABS: Appearance,Urine Clear (Clear); Bilirubin,Urine Negative (Negative); Blood,Urine Negative (Negative); Color,Urine Yellow; Glucose,Urine (UA) 4+ (Negative); Leukocyte Esterase,Urine Negative (Negative); Mucus,Urine Rare /hpf; Nitrite,Urine Negative (Negative); PH, Urine 5.5 (5.0-8.0); Protein,Urine 1+ (Negative); RBC,Urine 1 /hpf (0-5); Specific Gravity,Urine 1.031 (1.001-1.035); Squamous Epithelial Cell,Urine <1 /hpf (0-4); Urobilinogen,Urine <2.0 mg/dL (<2.0); WBC,Urine 2 /hpf (0-5)
--- NOTE | 2017-09-04 23:47 | XR ---
EXAMINATION TYPE: XR KUB DATE OF EXAM: 09/04/2017 COMPARISON: 06/03/2017 HISTORY: Nausea and vomiting TECHNIQUE: 2 views FINDINGS: Bowel gas pattern is normal. There is no sign of intestinal obstruction or pneumoperitoneum . Lung bases are clear. There are no pathologic calcifications over the kidneys. IMPRESSION: Nonacute abdomen. No change.
[2017-09-04] MEDS ORDERED: INSULIN REGULAR BOLUS (FROM DRIP BAG) IV ONE (23:52)
[2017-09-05 00:12] LABS: Ketones,Urine 4+ (Negative)
[2017-09-05] MEDS ORDERED: SODIUM CHLORIDE 0.9% 1,000 ML IV SCH (00:30)
[2017-09-05] MEDS ORDERED: ACETAMINOPHEN TAB 325 MG TAB PO STA (00:55)
[2017-09-05 01:14] LABS: Glucose,Whole Blood 208 mg/dL (75-99)
[2017-09-05 01:28] VITALS: BMI 18.1
[2017-09-05 02:07] LABS: Glucose,Whole Blood 199 mg/dL (75-99)
[2017-09-05 03:13] LABS: Glucose,Whole Blood 152 mg/dL (75-99)
[2017-09-05 04:10] LABS: Glucose,Whole Blood 100 mg/dL (75-99)
[2017-09-05 04:57] LABS: Anion Gap 13 mmol/L; Blood Urea Nitrogen 26 mg/dL (9-20); Carbon Dioxide 25 mmol/L (22-30); Chloride 111 mmol/L (98-107); Glucose 109 mg/dL (74-99); Phosphorus 2.6 mg/dL (2.5-4.5); Sodium 149 mmol/L (137-145)
[2017-09-05 05:17] LABS: Glucose,Whole Blood 85 mg/dL (75-99)
[2017-09-05] MEDS: SODIUM CHLORIDE 0.9% 1,000 ML with POTASSIUM CHLORIDE 20 MEQ IV SCH ×4 (05:34→06:14)
[2017-09-05 05:55] LABS: Glucose,Whole Blood 117 mg/dL (75-99)
[2017-09-05] MEDS ORDERED: DEXTROSE 5%-0.45% NACL 1,000 ML with POTASSIUM CHLORIDE 20 MEQ IV SCH ×2 (06:15)
[2017-09-05] MEDS: D5-0.45% NACL WITH KCL 20MEQ/L 1,000 ML IV SCH ×2 (06:53→15:32)
[2017-09-05 07:14] LABS: Glucose,Whole Blood 154 mg/dL (75-99)
[2017-09-05 08:46] LABS: Glucose,Whole Blood 177 mg/dL (75-99)
[2017-09-05 08:57] LABS: Anion Gap 14 mmol/L; Blood Urea Nitrogen 23 mg/dL (9-20); Carbon Dioxide 24 mmol/L (22-30); Chloride 108 mmol/L (98-107); Glucose 195 mg/dL (74-99); Phosphorus 2.7 mg/dL (2.5-4.5); Potassium 4.1 mmol/L (3.5-5.1); Sodium 146 mmol/L (137-145)
[2017-09-05 09:30] LABS: Glucose,Whole Blood 205 mg/dL (75-99)
[2017-09-05 10:24] LABS: Glucose,Whole Blood 236 mg/dL (75-99)
--- NOTE | 2017-09-05 10:50 | P.HPIM ---
History of Present Illness 27-year-old male with history of type 1 diabetes who presents to the emergency department with chief complaint of nausea and vomiting. Patient was seen yesterday in the emergency department by myself with the same complaints. Patient was discharged home yesterday after all lab work came back unremarkable. He did have ketones and glucose in his urine but glucose was less than 200 and acetone was negative. Patient states that his symptoms have not improved since being seen yesterday. He states that he is unable to keep down any foods or liquids. He states that his blood sugar has been "up and down all day." He states that he has generalized abdominal cramping. Patient is comparing of nausea as well. Patient felt like he had fever although no fever was seen here patient did have leukocytosis patient was given ampicillin for broken teeth although there is no obvious caries teeth patient's dentition is poor. Patient never took this medication, patient is found to be in DKA as today patient was started on DKA protocol with IV insulin presently patient is on IV insulin D5 anion gap on 14 was anion gap resolves patient will be resumed on subcutaneous insulin and will resume on his on diet. Patient will be switched to normal saline once his anion gap resolves. Patient will be started on Augmentin for his possible caries teeth although there is no obvious caries state that was identified on physical exam he is complaining of severe pain in the left maxillary area. That may have precipitated his diabetic ketoacidosis. was complaining of minimal abdominal discomfort with some diffuse abdominal tenderness. Review of Systems REVIEW OF SYSTEMS: CONSTITUTIONAL: No fever, no malaise, no fatigue. HEENT: As mentioned in HPI CARDIOVASCULAR: No chest pain, orthopnea, PND, no palpitations, no syncope. PULMONARY: No shortness of breath, no cough, no hemoptysis. GASTROINTESTINAL: No diarrhea. NEUROLOGICAL: No headaches, no weakness, no numbness. HEMATOLOGICAL: Denies any bleeding or petechiae. GENITOURINARY: Denies any burning micturition, frequency, or urgency. MUSCULOSKELETAL/RHEUMATOLOGICAL: Denies any joint pain, swelling, or any muscle pain. ENDOCRINE: Denies any polyuria or polydipsia. The rest of the 14-point review of systems is negative. Past Medical History Past Medical History: Asthma, Diabetes Mellitus History of Any Multi-Drug Resistant Organisms: MRSA Date of last positivie culture/infection: 04/26/2014 MDRO Source:: Face Past Surgical History: No Surgical Hx Reported Additional Past Surgical History / Comment(s): right hand ortho surg, left leg ortho surg., eustachian tubes Past Anesthesia/Blood Transfusion Reactions: No Reported Reaction Past Psychological History: Anxiety, Bipolar, Depression Additional Psychological History / Comment(s): patient states he has been diagnosed with anxiety/depression/bipolar but does not currently take any medications. Smoking Status: Current every day smoker Past Alcohol Use History: None Reported Past Drug Use History: Marijuana - Past Family History Father Family Medical History: Hyperlipidemia, Hypertension Mother Family Medical History: COPD Additional Family Medical History / Comment(s): home O2, Brother(s) Family Medical History: No Reported History Medications and Allergies Home Medications Medication Instructions Recorded Confirmed Type Insulin Glargine [Lantus] 40 unit SQ DAILY@1500 04/26/14 09/04/17 History Insulin Glulisine [Apidra] 15 unit SQ AC-TID 07/26/16 09/04/17 History Ibuprofen 600 mg PO Q6HR #20 tablet 09/03/17 09/04/17 Rx Penicillin V Potassium [Pen Vee K] 500 mg PO QID 10 Days tab 09/03/17 09/04/17 Rx Allergies Allergy/AdvReac Type Severity Reaction Status Date / Time latex Allergy Rash/Hives Verified 09/04/17 22:38 Physical Exam Vitals: Vital Signs Temp Pulse Pulse Resp BP BP Pulse Ox 09/05/17 08:00 98.6 F 81 14 153/83 09/05/17 04:00 99.5 F 90 16 133/71 95 09/05/17 02:00 98.4 F 119 H 16 164/88 94 L 09/05/17 01:04 100.7 F H 09/05/17 00:27 87 18 147/83 97 09/04/17 22:29 99.7 F H 87 18 161/87 99 Intake and Output 09/04/17 09/05/17 09/05/17 22:59 06:59 14:59 Intake Total 22.153 Output Total 300 Balance -277.847 Intake: Intake, IV Titration 22.153 Amount Insulin Regular 100 unit 22.153 In Sodium Chloride 0.9% 100 ml @ 0.1 UNITS/KG/HR 6.18 mls/hr IV .[id number] [facility] Rx#:[id number] Output: Urine 300 Other: # Voids 1 Weight 61.235 kg 57.3 kg PHYSICAL EXAMINATION: GENERAL: The patient is alert and oriented x3, not in any acute distress. Well developed, well nourished. HEENT: Pupils are round and equally reacting to light. EOMI. No scleral icterus. No conjunctival pallor. Normocephalic, atraumatic. No pharyngeal erythema. No thyromegaly. Dentition is extremely poor CARDIOVASCULAR: S1 and S2 present. No murmurs, rubs, or gallops. PULMONARY: Chest is clear to auscultation, no wheezing or crackles. ABDOMEN: Soft, nontender, nondistended, normoactive bowel sounds. No palpable organomegaly. MUSCULOSKELETAL: No joint swelling or deformity. EXTREMITIES: No cyanosis, clubbing, or pedal edema. NEUROLOGICAL: Gross neurological examination did not reveal any focal deficits. SKIN: No rashes. Results CBC & Chem 7: 09/04/17 23:14 09/05/17 08:24 Labs: Abnormal Lab Results - Last 24 Hours (Table) 09/04/17 09/04/17 09/04/17 Range/Units 23:14 23:14 23:32 WBC 14.0 H (3.8-10.6) k/uL Neutrophils # 11.4 H (1.3-7.7) k/uL Sodium 148 H (137-145) mmol/L Chloride (98-107) mmol/L BUN 31 H (9-20) mg/dL Creatinine 0.57 L (0.66-1.25) mg/dL Glucose 276 H (74-99) mg/dL POC Glucose (mg/dL) (75-99) mg/dL Lipase 13 L (23-300) U/L Urine Protein 1+ H (Negative) Urine Glucose (UA) 4+ H (Negative) Urine Ketones 4+ H (Negative) Urine Mucus Rare H (None) /hpf 09/05/17 09/05/17 09/05/17 Range/Units 01:07 02:01 03:00 WBC (3.8-10.6) k/uL Neutrophils # (1.3-7.7) k/uL Sodium (137-145) mmol/L Chloride (98-107) mmol/L BUN (9-20) mg/dL Creatinine (0.66-1.25) mg/dL Glucose (74-99) mg/dL POC Glucose (mg/dL) 208 H 199 H 152 H (75-99) mg/dL Lipase (23-300) U/L Urine Protein (Negative) Urine Glucose (UA) (Negative) Urine Ketones (Negative) Urine Mucus (None) /hpf 09/05/17 09/05/17 09/05/17 Range/Units 03:59 04:07 05:54 WBC (3.8-10.6) k/uL Neutrophils # (1.3-7.7) k/uL Sodium 149 H (137-145) mmol/L Chloride 111 H (98-107) mmol/L BUN 26 H (9-20) mg/dL Creatinine 0.50 L (0.66-1.25) mg/dL Glucose 109 H (74-99) mg/dL POC Glucose (mg/dL) 100 H 117 H (75-99) mg/dL Lipase (23-300) U/L Urine Protein (Negative) Urine Glucose (UA) (Negative) Urine Ketones (Negative) Urine Mucus (None) /hpf 09/05/17 09/05/17 09/05/17 Range/Units 06:56 08:24 08:34 WBC (3.8-10.6) k/uL Neutrophils # (1.3-7.7) k/uL Sodium 146 H (137-145) mmol/L Chloride 108 H (98-107) mmol/L BUN 23 H (9-20) mg/dL Creatinine 0.47 L (0.66-1.25) mg/dL Glucose 195 H (74-99) mg/dL POC Glucose (mg/dL) 154 H 177 H (75-99) mg/dL Lipase (23-300) U/L Urine Protein (Negative) Urine Glucose (UA) (Negative) Urine Ketones (Negative) Urine Mucus (None) /hpf 09/05/17 09/05/17 Range/Units 09:19 10:12 WBC (3.8-10.6) k/uL Neutrophils # (1.3-7.7) k/uL Sodium (137-145) mmol/L Chloride (98-107) mmol/L BUN (9-20) mg/dL Creatinine (0.66-1.25) mg/dL Glucose (74-99) mg/dL POC Glucose (mg/dL) 205 H 236 H (75-99) mg/dL Lipase (23-300) U/L Urine Protein (Negative) Urine Glucose (UA) (Negative) Urine Ketones (Negative) Urine Mucus (None) /hpf Thrombosis Risk Factor Assmnt - Choose All That Apply Any of the Below Risk Factors Present?: No Other Risk Factors: No Other congenital or acquired thrombophilia - If yes, enter type in comment: No Thrombosis Risk Factor Assessment Level: Very Low Risk Assessment and Plan Plan: -Diabetic keto acidosis: meant as mentioned above, correction of electrolytes imbalances and an IV fluids as mentioned above patient will be continued on DKA protocol patient does have type 1 diabetes mellitus. -Possible caries teeth other dental abscess and patient will need to follow with dentist as an outpatient and patient will be started on Augmentin. -Leukocytosis due to above-mentioned reasons -Nicotine use: Cessation counseling was provided.
[2017-09-05 11:05] LABS: Glucose,Whole Blood 260 mg/dL (75-99)
[2017-09-05] MEDS: AMOXIC-POT CLAV 875-125MG 1 EACH TAB PO SCH ×2 (11:15→20:12)
[2017-09-05] MEDS: PANTOPRAZOLE 40 MG/10 ML VIAL IVP SCH ×2 (11:15→20:13)
[2017-09-05 12:10] LABS: Glucose,Whole Blood 265 mg/dL (75-99)
[2017-09-05 12:26] LABS: Basophils % (A) 0 %; Eosinophils # (A) 0.1 k/uL (0-0.7); Eosinophils % (A) 0 %; HCT 46.7 % (39.0-53.0); HGB 15.5 gm/dL (13.0-17.5); Lymphocytes # (A) 1.3 k/uL (1.0-4.8); Lymphocytes % (A) 9 %; MCH 30.4 pg (25.0-35.0); MCHC 33.3 g/dL (31.0-37.0); MCV 91.4 fL (80.0-100.0); Mean Platelet Volume 8.6; Monocytes # (A) 0.9 k/uL (0-1.0); Monocytes % (A) 6 %; Neutrophils # (A) 11.7 k/uL (1.3-7.7); Neutrophils % (A) 81 %; Platelet Count 253 k/uL (150-450); RDW 13.6 % (11.5-15.5); WBC 14.5 k/uL (3.8-10.6)
[2017-09-05] MEDS ORDERED: INSULIN DETEMIR 100 UNIT/ML 10 ML VIAL SQ SCH ×2 (12:30→21:00)
[2017-09-05 12:58] LABS: Hemoglobin A1C 9.6 % (4.0-6.0)
[2017-09-05 13:25] LABS: Glucose,Whole Blood 313 mg/dL (75-99)
[2017-09-05] MEDS: ONDANSETRON 4 MG/2 ML VIAL IVP PRN ×2 (14:22→20:21)
[2017-09-05] MEDS: SODIUM CHLORIDE 0.9% 1,000 ML IV SCH ×2 (14:23→20:13)
[2017-09-05 16:29] LABS: Glucose,Whole Blood 225 mg/dL (75-99)
[2017-09-05] MEDS: INSULIN ASPART 100 UNIT/ML 1 ML 10 ML VIAL SQ SCH ×2 (17:53→21:05)
[2017-09-05 20:55] LABS: Glucose,Whole Blood 70 mg/dL (75-99)
[2017-09-05 21:36] VITALS: RESP 16
[2017-09-06] MEDS: INSULIN ASPART 100 UNIT/ML 1 ML 10 ML VIAL SQ SCH ×4 (02:10→12:01)
[2017-09-06 04:05] LABS: Glucose,Whole Blood 46 mg/dL (75-99)
[2017-09-06 04:48] LABS: Glucose,Whole Blood 134 mg/dL (75-99)
[2017-09-06 05:58] LABS: Glucose,Whole Blood 151 mg/dL (75-99)
[2017-09-06 06:20] LABS: HGB 13.8 gm/dL (13.0-17.5); MCHC 33.6 g/dL (31.0-37.0); MCV 89.2 fL (80.0-100.0); Mean Platelet Volume 8.1; Platelet Count 260 k/uL (150-450); RDW 13.4 % (11.5-15.5); WBC 9.9 k/uL (3.8-10.6)
[2017-09-06 06:34] LABS: Anion Gap 12 mmol/L; Blood Urea Nitrogen 16 mg/dL (9-20); Calcium 8.7 mg/dL (8.4-10.2); Carbon Dioxide 26 mmol/L (22-30); Chloride 99 mmol/L (98-107); Glucose 154 mg/dL (74-99); Potassium 3.6 mmol/L (3.5-5.1); Sodium 137 mmol/L (137-145)
[2017-09-06] MEDS: PANTOPRAZOLE 40 MG/10 ML VIAL IVP SCH (08:55)
[2017-09-06] MEDS: ONDANSETRON 4 MG/2 ML VIAL IVP PRN (08:55)
[2017-09-06] MEDS: AMOXIC-POT CLAV 875-125MG 1 EACH TAB PO SCH (09:24)
[2017-09-06 11:23] LABS: Glucose,Whole Blood 232 mg/dL (75-99)
[2017-09-06 11:36] VITALS: BP 144/91; PULSE 68; TEMP 98.4
--- NOTE | 2017-09-06 15:36 | P.DS ---
Providers Date of admission: 09/05/17 00:37 Expected date of discharge: 09/06/17 Attending physician: Wayne Rowe Primary care physician: Pat Oquendo [place] [facility] Course: Final Diagnoses: -Diabetic keto acidosis: meant as mentioned above, correction of electrolytes imbalances and an IV fluids as mentioned above patient will be continued on DKA protocol patient does have type 1 diabetes mellitus. -Possible caries teeth other dental abscess and patient will need to follow with dentist as an outpatient and patient will be started on Augmentin. -Leukocytosis due to above-mentioned reasons -Nicotine use: Cessation counseling was provided. Hospital course:27-year-old male with history of type 1 diabetes who presents to the emergency department with chief complaint of nausea and vomiting. Patient was seen yesterday in the emergency department by myself with the same complaints. Patient was discharged home yesterday after all lab work came back unremarkable. He did have ketones and glucose in his urine but glucose was less than 200 and acetone was negative. Patient states that his symptoms have not improved since being seen yesterday. He states that he is unable to keep down any foods or liquids. He states that his blood sugar has been "up and down all day." He states that he has generalized abdominal cramping. Patient is comparing of nausea as well. Patient felt like he had fever although no fever was seen here patient did have leukocytosis patient was given ampicillin for broken teeth although there is no obvious caries teeth patient's dentition is poor. Patient never took this medication, patient is found to be in DKA as today patient was started on DKA protocol with IV insulin presently patient is on IV insulin D5 anion gap on 14 was anion gap resolves patient will be resumed on subcutaneous insulin and will resume on his on diet. Patient will be switched to normal saline once his anion gap resolves. Patient will be started on Augmentin for his possible caries teeth although there is no obvious caries state that was identified on physical exam he is complaining of severe pain in the left maxillary area. That may have precipitated his diabetic ketoacidosis. Diet intake improving, currently no nausea or vomiting. Anion gap 12, blood sugars currently in the 150s, patient did have a hypoglycemic episode earlier this morning and home med regime adjusted. Patient is being discharged today in a stable condition with guarded prognosis. Advised to follow-up with PCP in 3 days and his [place] dentist. PHYSICAL EXAMINATION: GENERAL: The patient is alert and oriented x3, not in any acute distress. Well developed, well nourished. HEENT: Pupils are round and equally reacting to light. EOMI. No scleral icterus. No conjunctival pallor. Normocephalic, atraumatic. No pharyngeal erythema. No thyromegaly. Dentition is extremely poor CARDIOVASCULAR: S1 and S2 present. No murmurs, rubs, or gallops. PULMONARY: Chest is clear to auscultation, no wheezing or crackles. ABDOMEN: Soft, nontender, nondistended, normoactive bowel sounds. No palpable organomegaly. MUSCULOSKELETAL: No joint swelling or deformity. EXTREMITIES: No cyanosis, clubbing, or pedal edema. NEUROLOGICAL: Gross neurological examination did not reveal any focal deficits. SKIN: No rashes. The impression and plan of care has been dictated as directed. : I performed a history and examination of this patient, discussed the same with the dictator. I agree with the dictator's note ,documented as a scribe. Any additional findings or plans will be noted. Time taken: 35 minutes Patient Condition at Discharge: Stable Plan - Discharge Summary Discharge Rx Participant: No New Discharge Prescriptions: New Amoxic-Pot Clav 875-125Mg [Augmentin 875-125] 1 each PO Q12HR #14 tab Pantoprazole [Protonix] 40 mg PO AC-BID #60 tablet.dr Rainey Insulin Glargine [Lantus] 30 unit SQ DAILY@1500 #0 Insulin Glulisine [Apidra] 7 unit SQ AC-TID #0 Discontinued Ibuprofen 600 mg PO Q6HR #20 tablet Penicillin V Potassium [Pen Vee K] 500 mg PO QID 10 Days tab Discharge Medication List Amoxic-Pot Clav 875-125Mg [Augmentin 875-125] 1 each PO Q12HR #14 tab 09/06/17 [ Rx] Insulin Glargine [Lantus] 30 unit SQ DAILY@1500 #0 09/06/17 [Rx] Insulin Glulisine [Apidra] 7 unit SQ AC-TID #0 09/06/17 [Rx] Pantoprazole [Protonix] 40 mg PO AC-BID #60 tablet. 09/06/17 [Rx] Follow up Appointment(s)/Referral(s): Azra Stewart MD [Primary Care Provider] - 09/14/17 1:40 pm Patient Instructions/Handouts: Diabetic Ketoacidosis (DC) Activity/Diet/Wound Care/Special Instructions: Please follow up with dentist in [place] this week Diet: Consistent carb Maintain log of Accu-Cheks before meals and at bedtime, take to follow-up with PCP in 3 days for further recommendations Activity: Limited until follow up. Discharge Disposition: HOME WITH HOME HEALTH SERVICES
[2017-09-06] MEDS ORDERED: PANTOPRAZOLE 40 MG TABLET PO SCH (17:30)
== END 2017-09-06 13:41 | disposition home health service (06) | DRG 638 ==
LOC: EC 22:24 → 6SEL 09-05 00:37
PROVIDERS: ADMIT Hospitalist; ATTEND Hospitalist
DX: E10.10 Type 1 diabetes mellitus with ketoacidosis without coma (principal); E87.0 Hyperosmolality and hypernatremia; E10.649 Type 1 diabetes mellitus with hypoglycemia without coma; F17.200 Nicotine dependence, unspecified, uncomplicated; F31.9 Bipolar disorder, unspecified; J45.909 Unspecified asthma, uncomplicated; K02.9 Dental caries, unspecified; K04.7 Periapical abscess without sinus; E79.0 Hyperuricemia without signs of inflammatory arthritis and tophaceous disease; F41.9 Anxiety disorder, unspecified; Z86.14 Personal history of Methicillin resistant Staphylococcus aureus infection; Z82.49 Family history of ischemic heart disease and other diseases of the circulatory system; Z83.49 Family history of other endocrine, nutritional and metabolic diseases; Z82.5 Family history of asthma and other chronic lower respiratory diseases; Z79.4 Long term (current) use of insulin; Z79.1 Long term (current) use of non-steroidal anti-inflammatories (NSAID); Z91.040 Latex allergy status; Z71.6 Tobacco abuse counseling
CPT/HCPCS: 36415; 74018; 80048; 80051; 80053; 81001; 82009; 82150; 82565; 82947; 83036; 83690; 83735; 84100; 84520; 85025; 85027; 87502; 93005; 96361; 96374; 96375; 99285

== ENCOUNTER 2017-09-23 18:16 | Observation (INO) | payer OTHER ==
[2017-09-23] MEDS ORDERED: SODIUM CHLORIDE 0.9% 2,000 ML IV STA (18:35)
[2017-09-23] MEDS ORDERED: ONDANSETRON 4 MG/2 ML VIAL IVP STA ×2 (18:35→20:15)
[2017-09-23 19:02] LABS: Basophils % (A) 0 %; Eosinophils # (A) 0.1 k/uL (0-0.7); Eosinophils % (A) 0 %; HCT 49.3 % (39.0-53.0); HGB 16.4 gm/dL (13.0-17.5); Lymphocytes # (A) 1.8 k/uL (1.0-4.8); Lymphocytes % (A) 10 %; MCH 29.3 pg (25.0-35.0); MCHC 33.1 g/dL (31.0-37.0); MCV 88.4 fL (80.0-100.0); Mean Platelet Volume 7.7; Monocytes # (A) 0.9 k/uL (0-1.0); Monocytes % (A) 5 %; Neutrophils # (A) 16.2 k/uL (1.3-7.7); Neutrophils % (A) 84 %; RBC 5.58 m/uL (4.30-5.90); RDW 13.5 % (11.5-15.5); WBC 19.3 k/uL (3.8-10.6)
[2017-09-23 19:07] LABS: Platelet Count 608 k/uL (150-450)
[2017-09-23 19:11] LABS: ALT 23 U/L (21-72); AST 21 U/L (17-59); Albumin 4.6 g/dL (3.5-5.0); Alkaline Phosphatase 143 U/L (38-126); Anion Gap 16 mmol/L; Blood Urea Nitrogen 31 mg/dL (9-20); Calcium 10.4 mg/dL (8.4-10.2); Carbon Dioxide 30 mmol/L (22-30); Chloride 97 mmol/L (98-107); Glucose 132 mg/dL (74-99); Lipase 24 U/L (23-300); Potassium 4.1 mmol/L (3.5-5.1); Sodium 143 mmol/L (137-145); Total Protein 8.1 g/dL (6.3-8.2)
--- NOTE | 2017-09-23 19:12 | ED ---
Nausea/Vomiting/Diarrhea HPI - General Chief complaint: Nausea/Vomiting/Diarrhea Stated complaint: Nausea Time Seen by Provider: 09/23/17 18:22 Source: patient Mode of arrival: EMS Limitations: no limitations - History of Present Illness Initial comments: Patient is a 27-year-old male presenting for nausea and vomiting. He states that the symptoms started since Tuesday and that every day he has had over 20 episodes. He was recently admitted on September 04 here for DKA as he is type I diabetic. However, he denies any abdominal pain or diarrhea but has had decreased urine. He also has been compliant with his insulin regimen including 10 units before each male as well as Lantus 45 units at night. Denies any other symptoms including chest pain, shortness of breath, - Related Data Home Medications Medication Instructions Recorded Confirmed Albuterol Inhaler [Ventolin Hfa 1 - 2 puff INHALATION RT-Q6H PRN 09/23/17 Inhaler] Gabapentin [Neurontin] 100 mg PO HS 09/23/17 09/23/17 Insulin Glargine [Lantus] 45 unit SQ HS 09/23/17 09/23/17 Insulin Glulisine [Apidra] 10 unit SQ AC-TID 09/23/17 09/23/17 Metoclopramide [Reglan] 5 mg PO TID PRN 09/23/17 09/23/17 Oxybutynin Chloride [Ditropan XL] 5 mg PO DAILY 09/23/17 09/23/17 Ranitidine HCl [Zantac] 150 mg PO DAILY 09/23/17 09/23/17 Previous Rx's Medication Instructions Recorded Pantoprazole [Protonix] 40 mg PO AC-BID #60 tablet. 09/06/17 Allergies Allergy/AdvReac Type Severity Reaction Status Date / Time latex Allergy Rash/Hives Verified 09/23/17 18:38 Review of Systems ROS Statement: Those systems with pertinent positive or pertinent negative responses have been documented in the HPI. Constitutional: Negative for chills, fatigue and fever. HENT: Negative for congestion. Respiratory: Negative for chest tightness, shortness of breath and wheezing. Cardiovascular: Negative for chest pain and palpitations. Gastrointestinal: Negative for abdominal pain. Negative for abdominal distention , diarrhea. Positive for nausea and vomiting. Genitourinary: Negative for dysuria. Musculoskeletal: Negative for back pain, neck pain and neck stiffness. Skin: Negative for color change. Neurological: Negative for dizziness, speech difficulty, weakness and light- headedness. Psychiatric/Behavioral: Negative for agitation and confusion. The patient is not nervous/anxious. ROS Other: All systems not noted in ROS Statement are negative. Past Medical History Past Medical History: Asthma, Diabetes Mellitus History of Any Multi-Drug Resistant Organisms: MRSA Date of last positivie culture/infection: 04/26/2014 MDRO Source:: Face Past Surgical History: No Surgical Hx Reported Additional Past Surgical History / Comment(s): right hand ortho surg, left leg ortho surg., eustachian tubes Past Anesthesia/Blood Transfusion Reactions: No Reported Reaction Past Psychological History: Anxiety, Bipolar, Depression Smoking Status: Current every day smoker Past Alcohol Use History: None Reported Past Drug Use History: Marijuana - Past Family History Father Family Medical History: Hyperlipidemia, Hypertension Mother Family Medical History: COPD Additional Family Medical History / Comment(s): home O2, Brother(s) Family Medical History: No Reported History General Exam - General Exam Comments Initial Comments: Physical Exam Constitutional: Pt is oriented to person, place, and time. Pt appears well- developed and well-nourished. No distress. HENT: Head: Normocephalic and atraumatic. Eyes: EOM are normal. Neck: Normal range of motion. Neck supple. Cardiovascular: Normal rate, regular rhythm, S1 normal, S2 normal and normal heart sounds. Exam reveals no gallop and no friction rub. No murmur heard. Pulmonary/Chest: Effort normal and breath sounds normal. No tachypnea and no bradypnea. No respiratory distress. No wheezes or rales noted. Abdominal: Soft. Bowel sounds are normal. Pt exhibits no shifting dullness, no distension, no pulsatile liver, no fluid wave, no abdominal bruit and no ascites. There is no tenderness. There is no rigidity, no rebound, no guarding, no tenderness at McBurney's point and negative Hastings's sign. Musculoskeletal: Normal range of motion. Neurological: Pt is alert and oriented to person, place, and time. No cranial nerve deficit. Skin: Skin is warm and dry. No rash noted. Pt is not diaphoretic. No erythema. No pallor. Psychiatric: Pt has a normal mood and affect. Pt behavior is normal. Thought content normal. Limitations: no limitations Course Vital Signs 09/23/17 09/23/17 18:19 19:18 Temperature 98.9 F 99.4 F Pulse Rate 104 H 75 Respiratory 18 16 Rate Blood Pressure 159/92 132/82 O2 Sat by Pulse 98 96 Oximetry Medical Decision Making - Medical Decision Making Laboratory studies revealed that there was leukocytosis of 19.3 and platelet count was 608. Other laboratory studies revealed that there was acidosis with a pH of 7.60 and a pCO2 of 27. Osmolality was minimally elevated at 302 and remaining electrolytes were relatively within normal limits. Patient was given multiple doses of Zofran and continued to exhibit nausea and vomiting. Patient was also given 2 L of fluid but continued to have symptoms. Because of the patient's diabetes type 1, it is felt that the patient should be placed in observation. Explained all labs and diagnostic test results and that we will admit patient to hospital. Pt is agreeable to plan and case has been discussed with [employer] MAINTENANCE TECHNICIAN/PA for Dr. Moe and they agree to accept the pt. - Lab Data Result diagrams: 09/23/17 18:34 09/23/17 18:34 Lab Results 09/23/17 09/23/17 09/23/17 Range/Units 18:34 18:34 18:57 WBC 19.3 H (3.8-10.6) k/uL RBC 5.58 (4.30-5.90) m/uL Hgb 16.4 (13.0-17.5) gm/dL Hct 49.3 (39.0-53.0) % MCV 88.4 (80.0-100.0) fL MCH 29.3 (25.0-35.0) pg MCHC 33.1 (31.0-37.0) g/dL RDW 13.5 (11.5-15.5) % Plt Count 608 H D (150-450) k/uL Neutrophils % 84 % Lymphocytes % 10 % Monocytes % 5 % Eosinophils % 0 % Basophils % 0 % Neutrophils # 16.2 H (1.3-7.7) k/uL Lymphocytes # 1.8 (1.0-4.8) k/uL Monocytes # 0.9 (0-1.0) k/uL Eosinophils # 0.1 (0-0.7) k/uL Basophils # 0.0 (0-0.2) k/uL VBG pH 7.62 H* (7.31-7.41) VBG pCO2 27 L (37-51) mmHg VBG HCO3 28 (24-28) mmol/L Sodium 143 (137-145) mmol/L Potassium 4.1 (3.5-5.1) mmol/L Chloride 97 L (98-107) mmol/L Carbon Dioxide 30 (22-30) mmol/L Anion Gap 16 mmol/L BUN 31 H (9-20) mg/dL Creatinine 0.52 L (0.66-1.25) mg/dL Est GFR (CKD-EPI)AfAm >90 (>60 ml/min/1.73 sqM) Est GFR (CKD-EPI)NonAf >90 (>60 ml/min/1.73 sqM) Glucose 132 H (74-99) mg/dL Osmolality 302 H (280-301) mosm/kg Calcium 10.4 H (8.4-10.2) mg/dL Magnesium 2.0 (1.6-2.3) mg/dL Total Bilirubin 1.0 (0.2-1.3) mg/dL AST 21 (17-59) U/L ALT 23 (21-72) U/L Alkaline Phosphatase 143 H (38-126) U/L Total Protein 8.1 (6.3-8.2) g/dL Albumin 4.6 (3.5-5.0) g/dL Lipase 24 (23-300) U/L Urine Color Urine Appearance (Clear) Urine pH (5.0-8.0) Ur Specific Chandler (1.001-1.035) Urine Protein (Negative) Urine Glucose (UA) (Negative) Urine Ketones (Negative) Urine Blood (Negative) Urine Nitrite (Negative) Urine Bilirubin (Negative) Urine Urobilinogen (<2.0) mg/dL Ur Leukocyte Esterase (Negative) Urine RBC (0-5) /hpf Urine WBC (0-5) /hpf Amorphous Sediment (None) /hpf Hyaline Casts (0-2) /lpf Urine Mucus (None) /hpf Acetone, Qual Negative (Negative) 09/23/17 Range/Units 18:57 WBC (3.8-10.6) k/uL RBC (4.30-5.90) m/uL Hgb (13.0-17.5) gm/dL Hct (39.0-53.0) % MCV (80.0-100.0) fL MCH (25.0-35.0) pg MCHC (31.0-37.0) g/dL RDW (11.5-15.5) % Plt Count (150-450) k/uL Neutrophils % % Lymphocytes % % Monocytes % % Eosinophils % % Basophils % % Neutrophils # (1.3-7.7) k/uL Lymphocytes # (1.0-4.8) k/uL Monocytes # (0-1.0) k/uL Eosinophils # (0-0.7) k/uL Basophils # (0-0.2) k/uL VBG pH (7.31-7.41) VBG pCO2 (37-51) mmHg VBG HCO3 (24-28) mmol/L Sodium (137-145) mmol/L Potassium (3.5-5.1) mmol/L Chloride (98-107) mmol/L Carbon Dioxide (22-30) mmol/L Anion Gap mmol/L BUN (9-20) mg/dL Creatinine (0.66-1.25) mg/dL Est GFR (CKD-EPI)AfAm (>60 ml/min/1.73 sqM) Est GFR (CKD-EPI)NonAf (>60 ml/min/1.73 sqM) Glucose (74-99) mg/dL Osmolality (280-301) mosm/kg Calcium (8.4-10.2) mg/dL Magnesium (1.6-2.3) mg/dL Total Bilirubin (0.2-1.3) mg/dL AST (17-59) U/L ALT (21-72) U/L Alkaline Phosphatase (38-126) U/L Total Protein (6.3-8.2) g/dL Albumin (3.5-5.0) g/dL Lipase (23-300) U/L Urine Color Yellow Urine Appearance Clear (Clear) Urine pH 6.5 (5.0-8.0) Ur Specific Chandler 1.027 (1.001-1.035) Urine Protein 1+ H (Negative) Urine Glucose (UA) 4+ H (Negative) Urine Ketones 2+ H (Negative) Urine Blood Negative (Negative) Urine Nitrite Negative (Negative) Urine Bilirubin Negative (Negative) Urine Urobilinogen 2.0 (<2.0) mg/dL Ur Leukocyte Esterase Negative (Negative) Urine RBC 1 (0-5) /hpf Urine WBC 3 (0-5) /hpf Amorphous Sediment Rare H (None) /hpf Hyaline Casts 7 H (0-2) /lpf Urine Mucus Occasional H (None) /hpf Acetone, Qual (Negative) Disposition Clinical Impression: Intractable nausea and vomiting Disposition: ADMITTED IP TO THIS HOSP Condition: Fair Instructions: Acute Nausea and Vomiting (ED) Is patient prescribed a controlled substance at d/c from ED?: No Referrals: Azra Stewart MD [Primary Care Provider] - 1-2 days Decision Date: 09/23/17 Decision Time: 21:13
[2017-09-23 19:18] LABS: VBG PH 7.62 (7.31-7.41)
[2017-09-23 19:30] LABS: Amorphous Sediment,Urine Rare /hpf; Appearance,Urine Clear (Clear); Bilirubin,Urine Negative (Negative); Blood,Urine Negative (Negative); Color,Urine Yellow; Glucose,Urine (UA) 4+ (Negative); Hyaline Casts,Urine 7 /lpf (0-2); Leukocyte Esterase,Urine Negative (Negative); Mucus,Urine Occasional /hpf; Nitrite,Urine Negative (Negative); PH, Urine 6.5 (5.0-8.0); Protein,Urine 1+ (Negative); RBC,Urine 1 /hpf (0-5); Specific Gravity,Urine 1.027 (1.001-1.035); WBC,Urine 3 /hpf (0-5)
[2017-09-23 19:32] LABS: Ketones,Urine 2+ (Negative)
[2017-09-23] MEDS ORDERED: ONDANSETRON 4 MG/2 ML VIAL IVP PRN ×2 (21:14→22:56)
[2017-09-23] MEDS ORDERED: NALOXONE 0.4 MG/ML 1 ML VIAL IV PRN (21:14)
[2017-09-23 21:50] LABS: Glucose,Whole Blood 122 mg/dL (75-99)
[2017-09-23] MEDS: SODIUM CHLORIDE 0.9% 1,000 ML IV SCH (21:51)
[2017-09-23] MEDS ORDERED: diphenhydrAMINE 50 MG/ML 1 ML VIAL IVP STA (22:51)
[2017-09-23] MEDS ORDERED: INSULIN DETEMIR 100 UNIT/ML 10 ML VIAL SQ SCH (23:00)
[2017-09-23] MEDS: METOCLOPRAMIDE 5 MG/ML 2 ML VIAL IVP PRN (23:16)
[2017-09-23] MEDS: PANTOPRAZOLE 40 MG/10 ML VIAL IVP SCH (23:21)
[2017-09-23 23:30] LABS: Glucose,Whole Blood 152 mg/dL (75-99)
[2017-09-24] MEDS ORDERED: ALBUTEROL NEBULIZED 2.5 MG/3 ML INHALATION PRN (00:41)
[2017-09-24] MEDS ORDERED: ALPRAZolam 0.25 MG TAB PO PRN (00:41)
[2017-09-24] MEDS ORDERED: HYDROcodone/APAP 5-325MG 1 EACH TAB PO PRN (00:41)
[2017-09-24 02:12] LABS: Amphetamine Screen,Urine Not Detected (NotDetected); Barbiturate Screen,Urine Not Detected (NotDetected); Benzodiazepines Screen,Urine Not Detected (NotDetected); Cocaine Screen,Urine Not Detected (NotDetected); Methadone Screen, Urine Not Detected (NotDetected); Opiate Screen,Urine Not Detected (NotDetected); Oxycodone Screen, Urine Not Detected (NotDetected); Phencyclidine Screen,Urine Not Detected (NotDetected); Tricyclic Antidepressant,Urine Not Detected (NotDetected); Urn Cannabinoid Scrn Detected (NotDetected)
[2017-09-24 07:14] LABS: HCT 43.6 % (39.0-53.0); HGB 14.6 gm/dL (13.0-17.5); MCH 30.3 pg (25.0-35.0); MCHC 33.6 g/dL (31.0-37.0); MCV 90.4 fL (80.0-100.0); Mean Platelet Volume 6.9; Platelet Count 543 k/uL (150-450); RBC 4.82 m/uL (4.30-5.90); RDW 13.3 % (11.5-15.5); WBC 15.3 k/uL (3.8-10.6)
[2017-09-24] MEDS: METOCLOPRAMIDE 5 MG/ML 2 ML VIAL IVP PRN ×3 (07:24→19:45)
[2017-09-24 07:30] LABS: Glucose,Whole Blood 45 mg/dL (75-99)
[2017-09-24 07:30] LABS: Glucose,Whole Blood 43 mg/dL (75-99)
[2017-09-24 07:31] LABS: Anion Gap 12 mmol/L; Blood Urea Nitrogen 21 mg/dL (9-20); Calcium 9.2 mg/dL (8.4-10.2); Carbon Dioxide 28 mmol/L (22-30); Chloride 104 mmol/L (98-107); Potassium 3.8 mmol/L (3.5-5.1); Sodium 144 mmol/L (137-145)
[2017-09-24 07:44] LABS: Glucose,Whole Blood 95 mg/dL (75-99)
[2017-09-24 07:50] LABS: Glucose 41 mg/dL (74-99)
--- NOTE | 2017-09-24 08:00 | HP ---
HISTORY AND PHYSICAL DATE OF SERVICE: 09/23/17 CHIEF COMPLAINT: Nausea, vomiting. HISTORY OF PRESENT ILLNESS: This is a 27-year-old gentleman with a past medical history of asthma, diabetes and MRSA, history of anxiety/bipolar depression being followed by Dr. Stewart in the outpatient setting also had history of THC. The patient is complaining on intractable nausea, vomiting. The patient had similar symptoms previously and was admitted recently in the hospital and also the patient also had diabetic ketoacidosis and carious teeth at this time. There is no history of fever, rigors. No headache, loss of consciousness, seizures. PAST MEDICAL HISTORY: History of asthma, diabetes, MRSA, history of anxiety, bipolar depression. MEDICATIONS ARE: 1. Zantac 150 mg p.o. b.i.d. 2. Protonix 40 mg a.c. b.i.d. 3. Ditropan XL 5 mg b.i.d. 4. Reglan 5 mg p.o. t.i.d. p.r.n. 5. Apidra 10 mg a.c. t.i.d. 6. Lantus 45 units subcu q.h.s. 7. Neurontin 100 mg q.h.s. 8. Ventolin 2 puffs q.6h p.r.n. ALLERGIES: LATEX. FAMILY HISTORY: Family history of hypertension and hyperlipidemia. SOCIAL HISTORY: History of smoking. No alcohol intake. REVIEW OF SYSTEMS: ENT: No diminished vision. No diminished hearing. Cardiovascular: No angina or palpitations. Respiratory: No cough. GI: As mentioned earlier. no dysuria. Nervous system: No numbness, weakness. Allergy/Immunology: No asthma or hayfever. Musculoskeletal as mentioned earlier. Hematology/Oncology: No history of anemia. Endocrine: Diabetes mellitus. Constitutional: As mentioned earlier. Dermatology: Negative. Rheumatology: Negative. Psychiatric: As mentioned earlier. PHYSICAL EXAMINATION: Alert and oriented x3. Pulse is 85, blood pressure 150/88, respiration 18, temperature 98.8, pulse ox 98% on room air. HEENT: Conjunctivae normal. Oral mucosa moist. Neck is no jugular venous distention. No carotid bruit. No lymph node enlargement. Cardiovascular system: S1, S2 muffled. Respiratory: Breath sounds diminished in the bases. No rhonchi. No crackles. ABDOMEN: Soft, mild diffuse discomfort in the epigastrium. No mass palpable. No hepatosplenomegaly. No ascites. No guarding, rigidity. Legs: No edema and no swelling. NERVOUS SYSTEM: Higher functions as mentioned earlier. Moves all four limbs. No focal deficits. Lymphatics: No lymph nodes palpable in the neck, axillae or groin. Skin no ulcer, rash, bleeding. LABS: WBC 19.3, platelets 608 and ABG 7.62. Creatinine 0.5, Accu-Cheks 122, 152, calcium 10.4. Urine ketones are positive. Serum ketones are negative. ASSESSMENT: 1. Intractable nausea and vomiting possible acute gastroparesis. 2. Diabetes type 1. 3. History of DKA. 4. Dehydration. 5. Increased WBC. 6. Increased platelets. 7. History of nicotine dependence. 8. History of asthma. 9. History of MRSA. 10.History of anxiety/bipolar depression. 11.History of THC. RECOMMENDATIONS AND DISCUSSION: This 27-year-old gentleman who presented with multiple complex medical issues at this time I recommend continue the current medications, continue symptomatic treatment. Otherwise I would recommend a gastroenterology consultation and as well as clear liquid diet at this time. Proton pump inhibitors. Zofran. Monitor blood sugars closely. Smoking cessation advised. Otherwise, prognosis guarded because of multiple complex medical issues. Further recommendations to follow. See orders for details. We will resume the home medications. We will also recommend cautious IV fluids as well. The prognosis is guarded. Further recommendations to follow. MMODL / IJN: [id number] /
[2017-09-24] MEDS: INSULIN ASPART 100 UNIT/ML 1 ML 10 ML VIAL SQ SCH ×7 (08:06→22:10)
[2017-09-24] MEDS: NICOTINE 14MG/24HR PATCH TRANSDERM SCH (09:28)
[2017-09-24] MEDS: PANTOPRAZOLE 40 MG/10 ML VIAL IVP SCH (09:29)
[2017-09-24] MEDS: OXYBUTYNIN XL 5 MG TAB.ER.24 PO SCH (09:29)
[2017-09-24] MEDS: HEPARIN SODIUM,PORCINE 5,000 UNIT/ML 1 ML VIAL SQ SCH ×2 (09:29→22:16)
[2017-09-24] MEDS: SODIUM CHLORIDE 0.9% 1,000 ML IV SCH ×2 (09:36→17:02)
[2017-09-24 11:15] LABS: Hemoglobin A1C 9.5 % (4.0-6.0)
[2017-09-24 11:46] VITALS: BMI 17.9
[2017-09-24 12:03] LABS: Glucose,Whole Blood 50 mg/dL (75-99)
[2017-09-24 12:11] LABS: Glucose,Whole Blood 53 mg/dL (75-99)
[2017-09-24 12:29] LABS: Glucose,Whole Blood 98 mg/dL (75-99)
[2017-09-24] MEDS: DEXTROSE 10% IN WATER 1,000 ML IV SCH (13:18)
[2017-09-24] MEDS: LISINOPRIL 5 MG TAB PO SCH (13:19)
--- NOTE | 2017-09-24 13:36 | PN ---
PROGRESS NOTE DATE OF SERVICE: 09/24/2017 This 27-year-old gentleman who was admitted with intractable nausea, vomiting and acute gastroparesis is still complaining of nausea. No chest pain. No palpitations. No fever. On exam, alert and oriented x3. Pulse is 80, blood pressure 152/91, respiration 16, temperature 98.2, pulse ox 100% on room air. HEENT: Conjunctivae normal. Oral mucosa moist. NECK: No jugular venous distention. No carotid bruit. No lymph node enlargement. CARDIOVASCULAR SYSTEM: S1, S2 muffled. RESPIRATORY SYSTEM: Breath sounds diminished at the bases. No rhonchi. No crackles. ABDOMEN: Soft, nontender. No mass palpable. LEGS: No edema. No swelling. NERVOUS SYSTEM: No focal deficit. LABS: Labs at this time show WBC 15.3, sodium 144. Glucose 41. ASSESSMENT: 1. Intractable nausea and vomiting, possible acute gastroparesis. Rule out peptic ulcer disease. 2. Diabetes mellitus, type 1. 3. History of diabetic ketoacidosis. 4. Hypertension. 5. Dehydration. 6. History of previously increased platelets. 7. History of nicotine dependence. 8. History of asthma. 9. History of methicillin-resistant Staphylococcus aeruginosa. 10.Anxiety, bipolar, depression. 11.History of tetrahydrocannabinol. RECOMMENDATIONS AND DISCUSSION: I recommend to continue current medication, continue symptomatic treatment. Otherwise at this time I would recommend continuing with current medications. Cut down the IV to 50 mL. Add lisinopril to the current regimen. I would also recommend gastroenterology consultation for possible EGD to rule out the possibility of any peptic ulcer disease. Prognosis guarded because of multiple complex medical issues. Further recommendations to follow. MMODL / IJN: [id number] /
[2017-09-24 16:40] LABS: Glucose,Whole Blood 111 mg/dL (75-99)
[2017-09-24 17:17] LABS: Glucose,Whole Blood 112 mg/dL (75-99)
[2017-09-24] MEDS ORDERED: INSULIN DETEMIR 100 UNIT/ML 10 ML VIAL SQ SCH (21:00)
[2017-09-24] MEDS ORDERED: GABAPENTIN 100 MG CAP PO SCH (21:00)
[2017-09-24] MEDS ORDERED: NON-FORMULARY DRUG (Insulin Glargine 45 UNIT) SQ SCH (21:00)
[2017-09-24 21:46] LABS: Glucose,Whole Blood 290 mg/dL (75-99)
[2017-09-25] MEDS: DEXTROSE 10% IN WATER 1,000 ML IV SCH (03:37)
[2017-09-25 06:28] VITALS: BP 152/97; PULSE 79; RESP 18; TEMP 97.2
[2017-09-25 07:25] LABS: Glucose,Whole Blood 70 mg/dL (75-99)
[2017-09-25] MEDS: INSULIN ASPART 100 UNIT/ML 1 ML 10 ML VIAL SQ SCH ×4 (07:55→12:34)
[2017-09-25] MEDS: OXYBUTYNIN XL 5 MG TAB.ER.24 PO SCH (08:49)
[2017-09-25] MEDS: LISINOPRIL 5 MG TAB PO SCH (08:49)
[2017-09-25] MEDS: NICOTINE 14MG/24HR PATCH TRANSDERM SCH (08:49)
[2017-09-25] MEDS: HEPARIN SODIUM,PORCINE 5,000 UNIT/ML 1 ML VIAL SQ SCH (08:49)
[2017-09-25] MEDS: PANTOPRAZOLE 40 MG/10 ML VIAL IVP SCH (08:49)
[2017-09-25] MEDS: METOCLOPRAMIDE 5 MG/ML 2 ML VIAL IVP PRN (08:58)
[2017-09-25 11:58] LABS: Glucose,Whole Blood 135 mg/dL (75-99)
[2017-09-25] MEDS: SODIUM CHLORIDE 0.9% 1,000 ML IV SCH (13:22)
--- NOTE | 2017-09-25 22:19 | DS ---
DISCHARGE SUMMARY DATE OF ADMISSION: 09/23/2017. DATE OF DISCHARGE: 09/25/2017. FINAL DIAGNOSES: 1. Intractable nausea and vomiting, possible acute gastritis. Rule out peptic ulcer disease. 2. Diabetes type 2. 3. Diabetic ketoacidosis. 4. Hypertension. 5. Dehydration. 6. Previous history of nicotine dependence. DISCHARGE DISPOSITION: The patient will be discharged in stable condition with guarded prognosis. HISTORY OF PRESENT ILLNESS: This 27-year-old gentleman admitted with diagnosis of possible gastroparesis. The patient improved significantly with symptomatic treatment. Cardiovascular, stable. Abdomen soft. Nervous system, no focal deficits. DIET: Cardiac diet. ACTIVITY: Limited. FOLLOWUP: 1. Follow up with Dr. Stewart in 2 to 3 days. 2. Follow with Dr. Huertas for possible EGD as an outpatient. 3. Follow with Dr. Martino for continued evaluation for psychiatric symptoms and possibly treatment of anxiety state. 4. Followup for possible PTSD. MEDICATIONS: 1. Albuterol 1 to 2 puffs every 6 hours p.r.n. 2. Xanax 0.25 t.i.d. p.r.n. 3. Neurontin 100 mg p.o. at bedtime. 4. Lantus 30 units subcu at bedtime. 5. Accu-Cheks with meals and at bedtime with logs to Dr. Stewart and continued followup. 6. Apidra 10 units with meals t.i.d. 7. Zestril 5 mg p.o. daily. 8. Reglan 5 mg t.i.d. p.r.n. 9. Ditropan XL 5 mg. 10.Protonix 40 mg b.i.d. 11.Zantac 150 mg b.i.d. MMODL / IJN: [id number] /
--- NOTE | 2017-10-17 11:34 | CDI ---
Outpatient Documentation Clarification Form Date: 10-17-17 CDS/Geographic Analyst Name: JEN JIM Phone: If any questions, call Maegan Lozano Pharmaceutical Operator at [phone] Patient Name: OSCAR SÁNCHEZ Admit Date: 09-23-17 Discharge Date: 09-25-17 ATTENTION: The [facility] Coding Staff appreciate your assistance in clarifying documentation. Please respond to the clarification below the line at the bottom and electronically sign. The [facility] Coding staff will review the response and follow-up if needed. Please note: Queries are made part of the Legal Health Record. If you have any questions, please contact the Pharmaceutical Operator. Dear Dr. VILLAREAL, PLEASE SPECIFY THE PATIENT'S DIABETES MELLITUS TYPE 1 OR TYPE 2 BELOW THE LINE. THANK YOU FOR YOUR TIME, JEN JIM Diabetes mellitus type 1 MTDD
== END 2017-09-25 13:20 | disposition home or self-care (01) ==
LOC: EC 18:16 → 3OBS 21:14 → 4MS4W 09-24 17:03
PROVIDERS: ADMIT Hospitalist; ATTEND Hospitalist
DX: E10.10 Type 1 diabetes mellitus with ketoacidosis without coma (principal); I10 Essential (primary) hypertension; E86.0 Dehydration; Z87.891 Personal history of nicotine dependence; J45.909 Unspecified asthma, uncomplicated; F41.9 Anxiety disorder, unspecified; F31.9 Bipolar disorder, unspecified; D72.829 Elevated white blood cell count, unspecified; Z86.14 Personal history of Methicillin resistant Staphylococcus aureus infection; Z82.49 Family history of ischemic heart disease and other diseases of the circulatory system; Z79.4 Long term (current) use of insulin; Z79.899 Other long term (current) drug therapy; Z91.040 Latex allergy status; Z83.6 Family history of other diseases of the respiratory system
CPT/HCPCS: 36415; 80048; 80053; 80306; 81001; 82009; 82803; 83036; 83690; 83735; 83930; 85025; 85027; 96361; 96365; 96366; 96372; 96375; 96376; 99285

== ENCOUNTER 2017-10-08 15:57 | Inpatient (IN) | payer OTHER ==
[2017-10-08] MEDS ORDERED: MORPHINE SULFATE 4 MG/ML SYRINGE IVP STA (16:13)
[2017-10-08] MEDS ORDERED: METOCLOPRAMIDE 5 MG/ML 2 ML VIAL IVP STA (16:13)
[2017-10-08] MEDS ORDERED: SODIUM CHLORIDE 0.9% 1,000 ML IV STA ×2 (16:13)
[2017-10-08] MEDS ORDERED: PANTOPRAZOLE 40 MG/10 ML VIAL IVP STA (16:13)
[2017-10-08] MEDS ORDERED: diphenhydrAMINE 50 MG/ML 1 ML VIAL IVP STA (16:13)
--- NOTE | 2017-10-08 16:19 | ED ---
General Adult HPI - General Stated complaint: N/V Time Seen by Provider: 10/08/17 16:02 - History of Present Illness Initial comments: Chief complaint and history of present illness is a 27-year-old male who has been an insulin-dependent diabetic since age 14. Patient has having episodes of nausea vomiting and appeared to be some blood in the vomitus. No diarrhea. Mild epigastric pain. For the past 36 hours. Patient's been hospitalized twice in the last 6 weeks because of persistent nausea and vomiting associated with diabetes and DKA. Patient also states that he uses marijuana for anxiety. We discussed the possibility of marijuana exacerbating his gastroparesis. He states he understands this but when he takes Xanax he still vomits and he agrees confused and does not know his going on. He chooses marijuana. - Related Data Home Medications Medication Instructions Recorded Confirmed Albuterol Inhaler [Ventolin Hfa 1 - 2 puff INHALATION RT-Q6H PRN 09/23/17 Inhaler] Gabapentin [Neurontin] 100 mg PO HS 09/23/17 09/23/17 Insulin Glulisine [Apidra] 10 unit SQ AC-TID 09/23/17 09/23/17 Metoclopramide [Reglan] 5 mg PO TID PRN 09/23/17 09/23/17 Oxybutynin Chloride [Ditropan XL] 5 mg PO DAILY 09/23/17 09/23/17 Ranitidine HCl [Zantac] 150 mg PO BID 09/23/17 09/23/17 Previous Rx's Medication Instructions Recorded Pantoprazole [Protonix] 40 mg PO AC-BID #60 tablet. 09/06/17 ALPRAZolam [Xanax] 0.25 mg PO TID PRN #20 tab 09/25/17 Insulin Glargine [Lantus] 30 unit SQ HS #1 09/25/17 Lisinopril [Zestril] 5 mg PO DAILY #30 tab 09/25/17 Allergies Allergy/AdvReac Type Severity Reaction Status Date / Time latex Allergy Rash/Hives Verified 09/23/17 22:20 Review of Systems ROS Statement: Those systems with pertinent positive or pertinent negative responses have been documented in the HPI. Review of systems. The patient's denying headache that of a sore throat from vomiting. No chest pain no shortness of breath. Mild epigastric pain. No diarrhea. All systems are reviewed. Past medical problems significant for asthma and type 1 diabetes for the past 13 years. Family history noncontributory patient denies ALLERGIES to medications as latex. Patient also has a past history of anxiety and bipolar disorder. Past history DKA. Patient uses marijuana for anxiety. ROS Other: All systems not noted in ROS Statement are negative. Past Medical History Past Medical History: Asthma, Diabetes Mellitus History of Any Multi-Drug Resistant Organisms: MRSA Date of last positivie culture/infection: 04/26/2014 MDRO Source:: Face Past Surgical History: No Surgical Hx Reported Additional Past Surgical History / Comment(s): right hand ortho surg, left leg ortho surg., eustachian tubes Past Anesthesia/Blood Transfusion Reactions: No Reported Reaction Past Psychological History: Anxiety, Bipolar, Depression Additional Psychological History / Comment(s): patient states he has been diagnosed with anxiety/depression/bipolar but does not currently take any medications. Smoking Status: Current every day smoker Past Alcohol Use History: None Reported Past Drug Use History: Marijuana Additional Drug Use History / Comment(s): pt states that he does not smoke marijuana at this time - Past Family History Father Family Medical History: Hyperlipidemia, Hypertension Mother Family Medical History: COPD Additional Family Medical History / Comment(s): home O2, Brother(s) Family Medical History: No Reported History General Exam - General Exam Comments Initial Comments: General: The patient is awake and alert, complains of frequent painful vomiting. Some blood noted in the vomitus. Eye: Pupils are equal, round and reactive to light, extra-ocular movements are intact ; there is normal conjunctiva bilaterally. No signs of icterus. Ears, nose, mouth and throat: There are moist mucous membranes and no oral lesions. Neck: The neck is supple, there is no tenderness . Cardiovascular: There is a regular rate and rhythm. No murmur, rub or gallop is appreciated. Respiratory: Lungs are clear to auscultation, respirations are non-labored, breath sounds are equal. No wheezes, stridor, rales, or rhonchi. Gastrointestinal: Soft, non-distended, non-tender abdomen without masses or organomegaly noted. There is no rebound or guarding present. No CVA tenderness. Bowel sounds are unremarkable. Frequent vomiting but no pain with palpation of the epigastric region. Active bowel sounds. Back: There is no tenderness to palpation in the midline. There is no obvious deformity. No rashes noted. Musculoskeletal: Normal ROM, no tenderness, There is no pedal edema. There is no calf tenderness or swelling. Sensation intact. Pulses equal bilaterally 2+. Neurological: No complaint of any neuro deficits. Skin: Skin is warm and dry and no rashes or lesions are noted. Psychiatric: Cooperative, history of anxiety and bipolar disorder. Course Vital Signs 10/08/17 10/08/17 16:17 18:19 Temperature 97.9 F 98.3 F Pulse Rate 118 H 109 H Respiratory 20 16 Rate Blood Pressure 146/90 133/76 O2 Sat by Pulse 97 98 Oximetry Medical Decision Making - Medical Decision Making Medical decision making; 27-year-old male here with probable recurrent diabetic ketoacidosis. No vomiting since yesterday. He also complains of a small amount of blood in the vomit. No diarrhea. Unable to keep fluids down. Patient is a past history of DKA last time he was admitted approximate 6 weeks ago. Labs show white count 28,000 hemoglobin 16 hematocrit of 50 with a potassium 5.0. BUN 39 creatinine 0.9 and GFR greater than 60. Anion gap 25. Plasma lactic S2.5. Glucose 370. The patient was hydrated immediately. Placed on DKA protocol with IV insulin and IV drip. Case discussed with Dr. Rowe patient be admitted his service. Case discussed with Dr. jeff ICU school laboratory technician who accepts the patient to the ICU. - Lab Data Result diagrams: 10/08/17 16:15 10/08/17 16:15 Lab Results 10/08/17 10/08/17 10/08/17 Range/Units 16:15 16:15 16:15 WBC 28.4 H* (3.8-10.6) k/uL RBC 5.52 (4.30-5.90) m/uL Hgb 16.1 (13.0-17.5) gm/dL Hct 50.9 (39.0-53.0) % MCV 92.3 (80.0-100.0) fL MCH 29.1 (25.0-35.0) pg MCHC 31.6 (31.0-37.0) g/dL RDW 13.8 (11.5-15.5) % Plt Count 388 (150-450) k/uL Neutrophils % 88 % Lymphocytes % 6 % Monocytes % 4 % Eosinophils % 0 % Basophils % 0 % Neutrophils # 25.0 H (1.3-7.7) k/uL Lymphocytes # 1.8 (1.0-4.8) k/uL Monocytes # 1.2 H (0-1.0) k/uL Eosinophils # 0.1 (0-0.7) k/uL Basophils # 0.0 (0-0.2) k/uL Sodium 143 (137-145) mmol/L Potassium 5.0 (3.5-5.1) mmol/L Chloride 99 (98-107) mmol/L Carbon Dioxide 19 L (22-30) mmol/L Anion Gap 25 mmol/L BUN 39 H (9-20) mg/dL Creatinine 0.90 (0.66-1.25) mg/dL Est GFR (CKD-EPI)AfAm >90 (>60 ml/min/1.73 sqM) Est GFR (CKD-EPI)NonAf >90 (>60 ml/min/1.73 sqM) Glucose 444 H (74-99) mg/dL POC Glucose (mg/dL) (75-99) mg/dL POC Glu Door Furring Installer ID Plasma Lactic Acid Neymar 2.5 H* (0.7-2.0) mmol/L Calcium 10.2 (8.4-10.2) mg/dL Total Bilirubin 0.8 (0.2-1.3) mg/dL AST 16 L (17-59) U/L ALT 16 L (21-72) U/L Alkaline Phosphatase 137 H (38-126) U/L Total Protein 7.5 (6.3-8.2) g/dL Albumin 4.6 (3.5-5.0) g/dL Amylase 55 (30-110) U/L Lipase 15 L (23-300) U/L Urine Color Urine Appearance (Clear) Urine pH (5.0-8.0) Ur Specific [place] (1.001-1.035) Urine Protein (Negative) Urine Glucose (UA) (Negative) Urine Ketones (Negative) Urine Blood (Negative) Urine Nitrite (Negative) Urine Bilirubin (Negative) Urine Urobilinogen (<2.0) mg/dL Ur Leukocyte Esterase (Negative) Acetone, Qual Positive (Negative) 10/08/17 10/08/17 10/08/17 Range/Units 16:52 18:02 18:30 WBC (3.8-10.6) k/uL RBC (4.30-5.90) m/uL Hgb (13.0-17.5) gm/dL Hct (39.0-53.0) % MCV (80.0-100.0) fL MCH (25.0-35.0) pg MCHC (31.0-37.0) g/dL RDW (11.5-15.5) % Plt Count (150-450) k/uL Neutrophils % % Lymphocytes % % Monocytes % % Eosinophils % % Basophils % % Neutrophils # (1.3-7.7) k/uL Lymphocytes # (1.0-4.8) k/uL Monocytes # (0-1.0) k/uL Eosinophils # (0-0.7) k/uL Basophils # (0-0.2) k/uL Sodium (137-145) mmol/L Potassium (3.5-5.1) mmol/L Chloride (98-107) mmol/L Carbon Dioxide (22-30) mmol/L Anion Gap mmol/L BUN (9-20) mg/dL Creatinine (0.66-1.25) mg/dL Est GFR (CKD-EPI)AfAm (>60 ml/min/1.73 sqM) Est GFR (CKD-EPI)NonAf (>60 ml/min/1.73 sqM) Glucose (74-99) mg/dL POC Glucose (mg/dL) 369 H 326 H (75-99) mg/dL POC Glu Door Furring Installer ID Ann Marie Shaver Kristen Plasma Lactic Acid Neymar (0.7-2.0) mmol/L Calcium (8.4-10.2) mg/dL Total Bilirubin (0.2-1.3) mg/dL AST (17-59) U/L ALT (21-72) U/L Alkaline Phosphatase (38-126) U/L Total Protein (6.3-8.2) g/dL Albumin (3.5-5.0) g/dL Amylase (30-110) U/L Lipase (23-300) U/L Urine Color Yellow Urine Appearance Clear (Clear) Urine pH 5.5 (5.0-8.0) Ur Specific [place] 1.025 (1.001-1.035) Urine Protein Negative (Negative) Urine Glucose (UA) 4+ H (Negative) Urine Ketones 4+ H (Negative) Urine Blood Negative (Negative) Urine Nitrite Negative (Negative) Urine Bilirubin Negative (Negative) Urine Urobilinogen <2.0 (<2.0) mg/dL Ur Leukocyte Esterase Negative (Negative) Acetone, Qual (Negative) Disposition Clinical Impression: DKA, type 1, Hematemesis with nausea Disposition: ADMITTED IP TO THIS [facility] Condition: Serious Is patient prescribed a controlled substance at d/c from ED?: No Referrals: Azra Stewart MD [Primary Care Provider] - 1-2 days
[2017-10-08 16:34] LABS: Basophils % (A) 0 %; Eosinophils # (A) 0.1 k/uL (0-0.7); Eosinophils % (A) 0 %; HCT 50.9 % (39.0-53.0); HGB 16.1 gm/dL (13.0-17.5); Lymphocytes # (A) 1.8 k/uL (1.0-4.8); Lymphocytes % (A) 6 %; MCH 29.1 pg (25.0-35.0); MCHC 31.6 g/dL (31.0-37.0); MCV 92.3 fL (80.0-100.0); Mean Platelet Volume 7.5; Monocytes # (A) 1.2 k/uL (0-1.0); Monocytes % (A) 4 %; Neutrophils % (A) 88 %; Platelet Count 388 k/uL (150-450); RBC 5.52 m/uL (4.30-5.90); RDW 13.8 % (11.5-15.5)
[2017-10-08 16:41] LABS: ALT 16 U/L (21-72); AST 16 U/L (17-59); Albumin 4.6 g/dL (3.5-5.0); Alkaline Phosphatase 137 U/L (38-126); Amylase 55 U/L (30-110); Anion Gap 25 mmol/L; Blood Urea Nitrogen 39 mg/dL (9-20); Calcium 10.2 mg/dL (8.4-10.2); Carbon Dioxide 19 mmol/L (22-30); Chloride 99 mmol/L (98-107); Glucose 444 mg/dL (74-99); Lipase 15 U/L (23-300); Sodium 143 mmol/L (137-145); Total Bilirubin 0.8 mg/dL (0.2-1.3); Total Protein 7.5 g/dL (6.3-8.2); WBC 28.4 k/uL (3.8-10.6)
[2017-10-08 16:54] LABS: Glucose,Whole Blood 369 mg/dL (75-99)
--- NOTE | 2017-10-08 17:32 | XR ---
EXAMINATION TYPE: XR abdomen 2V DATE OF EXAM: 10/08/2017 COMPARISON: NONE HISTORY: Pain TECHNIQUE: Single supine KUB image of the abdomen is obtained FINDINGS: Small bowel demonstrates no evidence for dilatation or air fluid levels. Gas and fecal material is seen in non-distended colon. No convincing evidence for pneumoperitoneum. No unusual calcifications. The lung bases are clear. The osseous structures are intact. IMPRESSION: 1. Overall nonobstructive bowel gas pattern.
[2017-10-08] MEDS ORDERED: INSULIN REGULAR BOLUS (FROM DRIP BAG) IV ONE (17:57)
[2017-10-08] MEDS ORDERED: SODIUM CHLORIDE 0.9% 1,000 ML IV SCH (18:00)
[2017-10-08] MEDS ORDERED: INSULIN REGULAR 100 UNIT in SODIUM CHLORIDE 0.9% 100 ML IV SCH ×2 (18:00→23:18)
[2017-10-08 18:08] LABS: Appearance,Urine Clear (Clear); Bilirubin,Urine Negative (Negative); Blood,Urine Negative (Negative); Color,Urine Yellow; Glucose,Urine (UA) 4+ (Negative); Leukocyte Esterase,Urine Negative (Negative); Nitrite,Urine Negative (Negative); PH, Urine 5.5 (5.0-8.0); Protein,Urine Negative (Negative); Specific Gravity,Urine 1.025 (1.001-1.035); Urobilinogen,Urine <2.0 mg/dL (<2.0)
[2017-10-08 18:19] LABS: Ketones,Urine 4+ (Negative)
[2017-10-08 18:40] LABS: Glucose,Whole Blood 326 mg/dL (75-99)
[2017-10-08 19:24] LABS: ABG Base Excess -3.9 mmol/L; ABG HCO3 22 mmol/L (21-25); ABG Oxygen Saturation 96.6 % (94-97); ABG PCO2 40 mmHg (35-45); ABG PH 7.35 (7.35-7.45); ABG PO2 87 mmHg (83-108); ABG TCO2 23 mmol/L (19-24)
[2017-10-08] MEDS ORDERED: ALPRAZolam 0.25 MG TAB PO PRN (19:27)
[2017-10-08] MEDS ORDERED: ALBUTEROL NEBULIZED 2.5 MG/3 ML INHALATION PRN (19:27)
[2017-10-08 19:41] LABS: Glucose,Whole Blood 258 mg/dL (75-99)
[2017-10-08 20:04] LABS: Glucose,Whole Blood 246 mg/dL (75-99)
[2017-10-08] MEDS: D5-0.45% NACL WITH KCL 20MEQ/L 1,000 ML IV SCH (20:22)
[2017-10-08 20:42] VITALS: BMI 17.5
[2017-10-08] MEDS ORDERED: GABAPENTIN 100 MG CAP PO SCH (21:00)
[2017-10-08 21:26] LABS: Glucose,Whole Blood 190 mg/dL (75-99)
[2017-10-08 21:49] LABS: Anion Gap 14 mmol/L; Blood Urea Nitrogen 32 mg/dL (9-20); Carbon Dioxide 25 mmol/L (22-30); Chloride 105 mmol/L (98-107); Glucose 207 mg/dL (74-99); Phosphorus 2.5 mg/dL (2.5-4.5); Potassium 4.4 mmol/L (3.5-5.1); Sodium 144 mmol/L (137-145)
[2017-10-08 22:22] LABS: Glucose,Whole Blood 161 mg/dL (75-99)
[2017-10-08 23:15] LABS: Glucose,Whole Blood 139 mg/dL (75-99)
[2017-10-08] MEDS: METOCLOPRAMIDE 5 MG/ML 2 ML VIAL IVP SCH (23:32)
[2017-10-09 00:05] LABS: Glucose,Whole Blood 155 mg/dL (75-99)
[2017-10-09 01:06] LABS: Glucose,Whole Blood 118 mg/dL (75-99)
[2017-10-09 01:27] LABS: Anion Gap 11 mmol/L; Blood Urea Nitrogen 28 mg/dL (9-20); Carbon Dioxide 26 mmol/L (22-30); Chloride 107 mmol/L (98-107); Glucose 127 mg/dL (74-99); Phosphorus 2.7 mg/dL (2.5-4.5); Potassium 4.2 mmol/L (3.5-5.1); Sodium 144 mmol/L (137-145)
[2017-10-09 02:03] LABS: Glucose,Whole Blood 118 mg/dL (75-99)
[2017-10-09 03:08] LABS: Glucose,Whole Blood 143 mg/dL (75-99)
[2017-10-09 04:16] LABS: Glucose,Whole Blood 212 mg/dL (75-99)
[2017-10-09 04:54] LABS: Basophils % (A) 0 %; Eosinophils # (A) 0.1 k/uL (0-0.7); Eosinophils % (A) 0 %; HCT 43.1 % (39.0-53.0); HGB 14.1 gm/dL (13.0-17.5); Lymphocytes # (A) 2.5 k/uL (1.0-4.8); Lymphocytes % (A) 12 %; MCHC 32.8 g/dL (31.0-37.0); MCV 91.4 fL (80.0-100.0); Mean Platelet Volume 8.1; Monocytes # (A) 0.9 k/uL (0-1.0); Monocytes % (A) 4 %; Neutrophils # (A) 16.2 k/uL (1.3-7.7); Neutrophils % (A) 81 %; Platelet Count 301 k/uL (150-450); RBC 4.71 m/uL (4.30-5.90); RDW 13.9 % (11.5-15.5)
[2017-10-09 05:13] LABS: Anion Gap 14 mmol/L; Blood Urea Nitrogen 23 mg/dL (9-20); Carbon Dioxide 23 mmol/L (22-30); Chloride 104 mmol/L (98-107); Glucose 205 mg/dL (74-99); Potassium 4.1 mmol/L (3.5-5.1); Sodium 141 mmol/L (137-145)
[2017-10-09 05:38] LABS: Glucose,Whole Blood 246 mg/dL (75-99)
[2017-10-09 06:23] LABS: Glucose,Whole Blood 354 mg/dL (75-99)
[2017-10-09] MEDS: METOCLOPRAMIDE 5 MG/ML 2 ML VIAL IVP SCH ×3 (06:23→17:00)
[2017-10-09] MEDS: D5-0.45% NACL WITH KCL 20MEQ/L 1,000 ML IV SCH ×3 (06:26→13:50)
[2017-10-09 07:09] LABS: Glucose,Whole Blood 288 mg/dL (75-99)
[2017-10-09 07:09] LABS: Glucose,Whole Blood >600 mg/dL (75-99)
[2017-10-09 08:15] LABS: Glucose,Whole Blood 276 mg/dL (75-99)
[2017-10-09] MEDS ORDERED: PANTOPRAZOLE 40 MG/10 ML VIAL IV SCH (09:00)
[2017-10-09 09:09] LABS: Glucose,Whole Blood 247 mg/dL (75-99)
--- NOTE | 2017-10-09 09:09 | P.CNPUL ---
History of Present Illness Consult date: 10/09/17 Reason for consult: other Chief complaint: Diabetic ketoacidosis History of present illness: Pulmonary consult dated 10/09/2017 This is a 27-year-old male who presents to the emergency department in diabetic ketoacidosis. 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 He apparently was having episodes of nausea and vomiting. Apparently there was some blood noted in the vomitus. No diarrhea. The patient had some mild epigastric pain. Apparently was submitted all going on for about 36 hours prior to admission. Apparently was last hospitalized with a similar episode about 6 weeks ago. He does use marijuana for chronic anxiety. He also uses it for exacerbations of his diabetic gastroparesis. The patient's doing relatively well today here in the ICU. He is on the DKA protocol. Still on an insulin drip at 3 Units per hour. Quite dehydrated. Got up much of IV fluids. His anion gap is still a little wide at 14. His blood sugar was 276 when last checked. His bicarbonate concentration was in the normal range. Hopefully , we can shift him over to NovoLog sliding scale get his insulin drip off and eventually move him out of the ICU. Other than that, he is doing well. The patient has a history of insulin-dependent diabetes episodes of diabetic ketoacidosis, diabetic gastroparesis and history of chronic bronchial asthma. Review of Systems A 12 point review of system is essentially unremarkable. Past Medical History Past Medical History: Asthma, Diabetes Mellitus History of Any Multi-Drug Resistant Organisms: MRSA Date of last positivie culture/infection: 04/26/2014 MDRO Source:: Face Past Surgical History: No Surgical Hx Reported Additional Past Surgical History / Comment(s): right hand ortho surg, left leg ortho surg., eustachian tubes Past Anesthesia/Blood Transfusion Reactions: No Reported Reaction Smoking Status: Current every day smoker - Past Family History Father Family Medical History: Hyperlipidemia, Hypertension Mother Family Medical History: COPD Additional Family Medical History / Comment(s): home O2, Brother(s) Family Medical History: No Reported History Medications and Allergies Home Medications Medication Instructions Recorded Confirmed Type Pantoprazole [Protonix] 40 mg PO AC-BID #60 tablet. 09/06/17 10/08/17 Rx Albuterol Inhaler [Ventolin Hfa 1 - 2 puff INHALATION RT-Q6H PRN 09/23/17 History Inhaler] Gabapentin [Neurontin] 100 mg PO HS 09/23/17 10/08/17 History Insulin Glulisine [Apidra] 10 unit SQ AC-TID 09/23/17 10/08/17 History Metoclopramide [Reglan] 5 mg PO TID PRN 09/23/17 10/08/17 History Oxybutynin Chloride [Ditropan XL] 5 mg PO DAILY 09/23/17 10/08/17 History Ranitidine HCl [Zantac] 150 mg PO BID 09/23/17 10/08/17 History ALPRAZolam [Xanax] 0.25 mg PO TID PRN #20 tab 09/25/17 10/08/17 Rx Insulin Glargine [Lantus] 30 unit SQ HS #1 09/25/17 10/08/17 Rx Lisinopril [Zestril] 5 mg PO DAILY #30 tab 09/25/17 10/08/17 Rx Allergies Allergy/AdvReac Type Severity Reaction Status Date / Time latex Allergy Rash/Hives Verified 10/08/17 18:58 Physical Exam Osteopathic Statement: *. No significant issues noted on an osteopathic structural exam other than those noted in the History and Physical/Consult. Vitals: Vital Signs Temp Pulse Resp BP Pulse Ox 10/09/17 08:00 97.9 F 84 20 127/85 97 10/09/17 07:30 86 20 114/61 10/09/17 07:00 85 19 138/81 96 10/09/17 06:00 77 20 121/74 96 10/09/17 05:00 85 21 119/77 95 10/09/17 04:00 98.3 F 94 20 120/68 96 10/09/17 03:00 91 21 119/69 95 10/09/17 02:00 86 18 139/86 95 10/09/17 01:00 119 H 20 119/69 96 10/09/17 00:00 98.4 F 108 H 21 112/67 96 10/08/17 23:00 114 H 26 H 117/72 96 10/08/17 22:00 108 H 22 135/86 96 10/08/17 21:00 101 H 20 135/86 96 10/08/17 20:10 98.4 F 131 H 18 154/96 96 10/08/17 19:00 113 H 15 147/82 97 10/08/17 18:19 98.3 F 109 H 16 133/76 98 10/08/17 16:17 97.9 F 118 H 20 146/90 97 Intake and Output 10/08/17 10/09/17 10/09/17 22:59 06:59 14:59 Intake Total 457.15 1358.995 154.025 Output Total 210 300 Balance 247.15 1058.995 154.025 Intake: IV 450 1350 150 D5-0.45% NaCl with KCl 450 1350 150 20Meq/l 1,000 ml @ 150 mls/hr IV .[id number] [facility] Rx# :[id number] Intake, IV Titration 7.15 8.995 4.025 Amount Insulin Regular 100 unit 8.995 4.025 In Sodium Chloride 0.9% 100 ml @ 0.1 UNIT/HR 0.1 mls/hr IV .Q24H [facility] Rx#: [id number] Insulin Regular 100 unit 7.15 In Sodium Chloride 0.9% 100 ml @ 0.1 UNITS/KG/HR 5.72 mls/hr IV .[id number] [facility] Rx#:[id number] Output: Urine 210 300 Other: Voiding Method Urinal Urinal Urinal # Voids 1 1 Weight 55.5 kg 55.5 kg No acute distress, oriented 3. No supplemental oxygen. HEENT examination is grossly unremarkable. Mucous membranes are moist. No oral lesions. Neck supple. Full range of motion. No adenopathy thyromegaly or neck vein distention. Cardiovascular examination reveals regular rhythm rate. S1-S2 normal. No S3 or S4. No discernible murmur noted. Lungs reveal clear breath sounds. His breath sounds are equal bilaterally. No adventitious lung sounds including wheezes rhonchi or crackles. Abdomen soft bowel sounds are heard. No masses or tenderness. Extremities are intact. No cyanosis clubbing or edema. Skin is without rash or lesion. Neurologic examination is brief but nonfocal. Results - Laboratory Findings CBC and BMP: 10/09/17 04:15 10/09/17 04:15 ABG ABG pH 7.35 (7.35-7.45) 10/08/17 19:13 ABG pCO2 40 mmHg (35-45) 10/08/17 19:13 ABG pO2 87 mmHg (83-108) 10/08/17 19:13 ABG O2 Saturation 96.6 % (94-97) 10/08/17 19:13 Abnormal lab findings: Abnormal Labs 10/08/17 10/08/17 10/08/17 16:15 16:15 16:15 WBC 28.4 H* Neutrophils # 25.0 H Monocytes # 1.2 H Carbon Dioxide 19 L BUN 39 H Creatinine Glucose 444 H POC Glucose (mg/dL) Plasma Lactic Acid Neymar 2.5 H* AST 16 L ALT 16 L Alkaline Phosphatase 137 H Lipase 15 L Urine Glucose (UA) Urine Ketones 10/08/17 10/08/17 10/08/17 16:52 18:02 18:30 WBC Neutrophils # Monocytes # Carbon Dioxide BUN Creatinine Glucose POC Glucose (mg/dL) 369 H 326 H Plasma Lactic Acid Neymar AST ALT Alkaline Phosphatase Lipase Urine Glucose (UA) 4+ H Urine Ketones 4+ H 10/08/17 10/08/17 10/08/17 19:32 20:03 21:16 WBC Neutrophils # Monocytes # Carbon Dioxide BUN 32 H Creatinine 0.57 L Glucose 207 H POC Glucose (mg/dL) 258 H 246 H Plasma Lactic Acid Neymar AST ALT Alkaline Phosphatase Lipase Urine Glucose (UA) Urine Ketones 10/08/17 10/08/17 10/08/17 21:25 22:22 23:13 WBC Neutrophils # Monocytes # Carbon Dioxide BUN Creatinine Glucose POC Glucose (mg/dL) 190 H 161 H 139 H Plasma Lactic Acid Neymar AST ALT Alkaline Phosphatase Lipase Urine Glucose (UA) Urine Ketones 10/09/17 10/09/17 10/09/17 00:04 01:00 01:05 WBC Neutrophils # Monocytes # Carbon Dioxide BUN 28 H Creatinine 0.50 L Glucose 127 H POC Glucose (mg/dL) 155 H 118 H Plasma Lactic Acid Neymar AST ALT Alkaline Phosphatase Lipase Urine Glucose (UA) Urine Ketones 10/09/17 10/09/17 10/09/17 02:01 03:06 04:14 WBC Neutrophils # Monocytes # Carbon Dioxide BUN Creatinine Glucose POC Glucose (mg/dL) 118 H 143 H 212 H Plasma Lactic Acid Neymar AST ALT Alkaline Phosphatase Lipase Urine Glucose (UA) Urine Ketones 10/09/17 10/09/17 10/09/17 04:15 04:15 05:36 WBC 20.0 H Neutrophils # 16.2 H Monocytes # Carbon Dioxide BUN 23 H Creatinine 0.50 L Glucose 205 H POC Glucose (mg/dL) 246 H Plasma Lactic Acid Neymar AST ALT Alkaline Phosphatase Lipase Urine Glucose (UA) Urine Ketones 10/09/17 10/09/17 10/09/17 06:21 07:06 07:07 WBC Neutrophils # Monocytes # Carbon Dioxide BUN Creatinine Glucose POC Glucose (mg/dL) 354 H >600 H 288 H Plasma Lactic Acid Neymar AST ALT Alkaline Phosphatase Lipase Urine Glucose (UA) Urine Ketones 10/09/17 08:14 WBC Neutrophils # Monocytes # Carbon Dioxide BUN Creatinine Glucose POC Glucose (mg/dL) 276 H Plasma Lactic Acid Neymar AST ALT Alkaline Phosphatase Lipase Urine Glucose (UA) Urine Ketones - Diagnostic Findings Chest x-ray: image reviewed (Labs x-rays and abdominal x-rays reviewed.) Assessment and Plan Assessment: Assessment Diabetic ketoacidosis Diabetic gastroparesis Multiple episodes of diabetic ketoacidosis in the past History of mild chronic bronchial asthma Plan: Plan dated 10/09/2017 The patient remains on IV fluids and also on an insulin drip. We'll continue to follow closely. No additional recommendations are made. Hopefully, in the near future, we'll be able to get him off the insulin drip and onto some NovoLog sliding scale. We'll continue with PD DKA protocol. The patient otherwise is stable. No major complaints. His respiratory status and hemodynamics status of both stable. Time with Patient: Greater than 30
[2017-10-09 10:08] LABS: Glucose,Whole Blood 243 mg/dL (75-99)
[2017-10-09 11:02] LABS: Glucose,Whole Blood 235 mg/dL (75-99)
[2017-10-09 11:11] LABS: Anion Gap 12 mmol/L; Blood Urea Nitrogen 17 mg/dL (9-20); Calcium 8.8 mg/dL (8.4-10.2); Carbon Dioxide 25 mmol/L (22-30); Chloride 102 mmol/L (98-107); Glucose 256 mg/dL (74-99); Magnesium 1.8 mg/dL (1.6-2.3); Phosphorus 1.5 mg/dL (2.5-4.5); Sodium 139 mmol/L (137-145)
[2017-10-09 11:17] LABS: Basophils % (A) 0 %; Eosinophils # (A) 0.1 k/uL (0-0.7); Eosinophils % (A) 0 %; HGB 14.4 gm/dL (13.0-17.5); Lymphocytes % (A) 12 %; MCH 30.1 pg (25.0-35.0); MCHC 33.4 g/dL (31.0-37.0); Monocytes # (A) 0.7 k/uL (0-1.0); Monocytes % (A) 4 %; Neutrophils % (A) 82 %; Platelet Count 304 k/uL (150-450); RBC 4.78 m/uL (4.30-5.90); RDW 13.8 % (11.5-15.5)
[2017-10-09] MEDS ORDERED: Phosphorus Replacement Protoco 1 EACH MISC MISCELLANE PRN (11:50)
[2017-10-09] MEDS ORDERED: Magnesium Replacement Protocol 1 EACH MISC MISCELLANE PRN (11:51)
[2017-10-09 12:09] LABS: Glucose,Whole Blood 206 mg/dL (75-99)
[2017-10-09] MEDS: MAGNESIUM SULFATE-D5W PMX 1 GM in DEXTROSE/WATER 1 100ML.BAG IVPB SCH ×2 (12:29→13:31)
[2017-10-09] MEDS: SODIUM PHOSPHATE 10 MMOL in SODIUM CHLORIDE 0.9% 250 ML IVPB SCH ×2 (12:30→14:15)
[2017-10-09] MEDS ORDERED: ACETAMINOPHEN TAB 325 MG TAB PO PRN (12:44)
[2017-10-09 14:03] LABS: Glucose,Whole Blood 199 mg/dL (75-99)
--- NOTE | 2017-10-09 14:23 | P.HPIM ---
History of Present Illness 27-year-old male came in with the comments of nausea vomiting coffee-ground emesis found to be in diabetic ketoacidosis patient was subsequently admitted to ICU patient has highly elevated white blood cell count patient any fever chills patient denied any shortness of breath cough dysuria. No signs or symptoms of sepsis was appreciated patient still has anion gap of 17 is on IV insulin with D5 half-normal saline. Will be switched to subcutaneous insulin once his anion gap comes down to around 10-12. Patient is presently nothing by mouth which will be continued patient does have history of diuretic gastroparesis in the past does have anxiety disorder and does use marijuana occasionally Review of Systems REVIEW OF SYSTEMS: CONSTITUTIONAL: No fever, no malaise, no fatigue. HEENT: No recent visual problems or hearing problems. Denied any sore throat. CARDIOVASCULAR: No chest pain, orthopnea, PND, no palpitations, no syncope. PULMONARY: No shortness of breath, no cough, no hemoptysis. GASTROINTESTINAL: As described in HPI NEUROLOGICAL: No headaches, no weakness, no numbness. HEMATOLOGICAL: Denies any bleeding or petechiae. GENITOURINARY: Denies any burning micturition, frequency, or urgency. MUSCULOSKELETAL/RHEUMATOLOGICAL: Denies any joint pain, swelling, or any muscle pain. ENDOCRINE: Denies any polyuria or polydipsia. The rest of the 14-point review of systems is negative. Past Medical History Past Medical History: Asthma, Diabetes Mellitus History of Any Multi-Drug Resistant Organisms: MRSA Date of last positivie culture/infection: 04/26/2014 MDRO Source:: Face Past Surgical History: No Surgical Hx Reported Additional Past Surgical History / Comment(s): right hand ortho surg, left leg ortho surg., eustachian tubes Past Anesthesia/Blood Transfusion Reactions: No Reported Reaction Smoking Status: Current every day smoker - Past Family History Father Family Medical History: Hyperlipidemia, Hypertension Mother Family Medical History: COPD Additional Family Medical History / Comment(s): home O2, Brother(s) Family Medical History: No Reported History Medications and Allergies Home Medications Medication Instructions Recorded Confirmed Type Pantoprazole [Protonix] 40 mg PO AC-BID #60 tablet. 09/06/17 10/08/17 Rx Albuterol Inhaler [Ventolin Hfa 1 - 2 puff INHALATION RT-Q6H PRN 09/23/17 History Inhaler] Gabapentin [Neurontin] 100 mg PO HS 09/23/17 10/08/17 History Insulin Glulisine [Apidra] 10 unit SQ AC-TID 09/23/17 10/08/17 History Metoclopramide [Reglan] 5 mg PO TID PRN 09/23/17 10/08/17 History Oxybutynin Chloride [Ditropan XL] 5 mg PO DAILY 09/23/17 10/08/17 History Ranitidine HCl [Zantac] 150 mg PO BID 09/23/17 10/08/17 History ALPRAZolam [Xanax] 0.25 mg PO TID PRN #20 tab 09/25/17 10/08/17 Rx Insulin Glargine [Lantus] 30 unit SQ HS #1 09/25/17 10/08/17 Rx Lisinopril [Zestril] 5 mg PO DAILY #30 tab 09/25/17 10/08/17 Rx Allergies Allergy/AdvReac Type Severity Reaction Status Date / Time latex Allergy Rash/Hives Verified 10/08/17 18:58 Physical Exam Vitals: Vital Signs Temp Pulse Resp BP Pulse Ox 10/09/17 14:00 74 19 157/93 98 10/09/17 13:30 88 18 157/93 98 10/09/17 13:00 72 20 157/83 98 10/09/17 12:30 76 22 157/83 98 10/09/17 12:00 98.7 F 75 20 159/83 98 10/09/17 11:30 75 20 159/83 98 10/09/17 11:00 84 10 L 144/85 98 10/09/17 10:30 74 20 144/85 98 10/09/17 10:00 91 21 158/79 98 10/09/17 09:30 76 18 158/79 98 10/09/17 09:00 72 18 127/85 95 10/09/17 08:30 86 76 H 127/85 95 10/09/17 08:00 97.9 F 84 20 127/85 97 10/09/17 07:30 86 20 114/61 10/09/17 07:00 85 19 138/81 96 10/09/17 06:00 77 20 121/74 96 10/09/17 05:00 85 21 119/77 95 10/09/17 04:00 98.3 F 94 20 120/68 96 10/09/17 03:00 91 21 119/69 95 10/09/17 02:00 86 18 139/86 95 10/09/17 01:00 119 H 20 119/69 96 10/09/17 00:00 98.4 F 108 H 21 112/67 96 10/08/17 23:00 114 H 26 H 117/72 96 10/08/17 22:00 108 H 22 135/86 96 10/08/17 21:00 101 H 20 135/86 96 10/08/17 20:10 98.4 F 131 H 18 154/96 96 10/08/17 19:00 113 H 15 147/82 97 10/08/17 18:19 98.3 F 109 H 16 133/76 98 10/08/17 16:17 97.9 F 118 H 20 146/90 97 Intake and Output 10/08/17 10/09/17 10/09/17 22:59 06:59 14:59 Intake Total 457.15 5627.823 3566.025 Output Total 315 182 6709 Balance 247.15 1058.995 704.025 Intake: IV 450 1350 1500 D5-0.45% NaCl with KCl 450 1350 1050 20Meq/l 1,000 ml @ 150 mls/hr IV .Q6H40M [facility] Rx# :[id number] Magnesium Sulfate-D5w Pmx 200 1 gm In Dextrose/Water 1 100ml.bag @ 100 mls/hr IVPB Q1H [facility] Rx#: [id number] Sodium Phosphate 10 mmol 250 In Sodium Chloride 0.9% 250 ml @ 125 mls/hr IVPB Q2H [facility] Rx#:[id number] Intake, IV Titration 7.15 8.995 4.025 Amount Insulin Regular 100 unit 8.995 4.025 In Sodium Chloride 0.9% 100 ml @ 0.1 UNIT/HR 0.1 mls/hr IV .Q24H [facility] Rx#: [id number] Insulin Regular 100 unit 7.15 In Sodium Chloride 0.9% 100 ml @ 0.1 UNITS/KG/HR 5.72 mls/hr IV .[id number] [facility] Rx#:[id number] Oral 200 Output: Urine 100 310 3693 Other: Voiding Method Urinal Urinal Urinal # Voids 1 1 Weight 55.5 kg 55.5 kg PHYSICAL EXAMINATION: GENERAL: The patient is alert and oriented x3, not in any acute distress. Thin built HEENT: Pupils are round and equally reacting to light. EOMI. No scleral icterus. No conjunctival pallor. Normocephalic, atraumatic. No pharyngeal erythema. No thyromegaly. CARDIOVASCULAR: S1 and S2 present. No murmurs, rubs, or gallops. PULMONARY: Chest is clear to auscultation, no wheezing or crackles. ABDOMEN: Soft, nontender, nondistended, normoactive bowel sounds. No palpable organomegaly. MUSCULOSKELETAL: No joint swelling or deformity. EXTREMITIES: No cyanosis, clubbing, or pedal edema. NEUROLOGICAL: Gross neurological examination did not reveal any focal deficits. SKIN: No rashes. Results CBC & Chem 7: 10/09/17 10:45 10/09/17 10:45 Labs: Abnormal Lab Results - Last 24 Hours (Table) 10/08/17 10/08/17 10/08/17 Range/Units 16:15 16:15 16:15 WBC 28.4 H* (3.8-10.6) k/uL Neutrophils # 25.0 H (1.3-7.7) k/uL Monocytes # 1.2 H (0-1.0) k/uL Carbon Dioxide 19 L (22-30) mmol/L BUN 39 H (9-20) mg/dL Creatinine (0.66-1.25) mg/dL Glucose 444 H (74-99) mg/dL POC Glucose (mg/dL) (75-99) mg/dL Hemoglobin A1c 9.0 H (4.0-6.0) % Plasma Lactic Acid Neyamr (0.7-2.0) mmol/L Phosphorus (2.5-4.5) mg/dL AST 16 L (17-59) U/L ALT 16 L (21-72) U/L Alkaline Phosphatase 137 H (38-126) U/L Lipase 15 L (23-300) U/L Urine Glucose (UA) (Negative) Urine Ketones (Negative) 10/08/17 10/08/17 10/08/17 Range/Units 16:15 16:52 18:02 WBC (3.8-10.6) k/uL Neutrophils # (1.3-7.7) k/uL Monocytes # (0-1.0) k/uL Carbon Dioxide (22-30) mmol/L BUN (9-20) mg/dL Creatinine (0.66-1.25) mg/dL Glucose (74-99) mg/dL POC Glucose (mg/dL) 369 H (75-99) mg/dL Hemoglobin A1c (4.0-6.0) % Plasma Lactic Acid Neymar 2.5 H* (0.7-2.0) mmol/L Phosphorus (2.5-4.5) mg/dL AST (17-59) U/L ALT (21-72) U/L Alkaline Phosphatase (38-126) U/L Lipase (23-300) U/L Urine Glucose (UA) 4+ H (Negative) Urine Ketones 4+ H (Negative) 10/08/17 10/08/17 10/08/17 Range/Units 18:30 19:32 20:03 WBC (3.8-10.6) k/uL Neutrophils # (1.3-7.7) k/uL Monocytes # (0-1.0) k/uL Carbon Dioxide (22-30) mmol/L BUN (9-20) mg/dL Creatinine (0.66-1.25) mg/dL Glucose (74-99) mg/dL POC Glucose (mg/dL) 326 H 258 H 246 H (75-99) mg/dL Hemoglobin A1c (4.0-6.0) % Plasma Lactic Acid Neymar (0.7-2.0) mmol/L Phosphorus (2.5-4.5) mg/dL AST (17-59) U/L ALT (21-72) U/L Alkaline Phosphatase (38-126) U/L Lipase (23-300) U/L Urine Glucose (UA) (Negative) Urine Ketones (Negative) 10/08/17 10/08/17 10/08/17 Range/Units 21:16 21:25 22:22 WBC (3.8-10.6) k/uL Neutrophils # (1.3-7.7) k/uL Monocytes # (0-1.0) k/uL Carbon Dioxide (22-30) mmol/L BUN 32 H (9-20) mg/dL Creatinine 0.57 L (0.66-1.25) mg/dL Glucose 207 H (74-99) mg/dL POC Glucose (mg/dL) 190 H 161 H (75-99) mg/dL Hemoglobin A1c (4.0-6.0) % Plasma Lactic Acid Neymra (0.7-2.0) mmol/L Phosphorus (2.5-4.5) mg/dL AST (17-59) U/L ALT (21-72) U/L Alkaline Phosphatase (38-126) U/L Lipase (23-300) U/L Urine Glucose (UA) (Negative) Urine Ketones (Negative) 10/08/17 10/09/17 10/09/17 Range/Units 23:13 00:04 01:00 WBC (3.8-10.6) k/uL Neutrophils # (1.3-7.7) k/uL Monocytes # (0-1.0) k/uL Carbon Dioxide (22-30) mmol/L BUN 28 H (9-20) mg/dL Creatinine 0.50 L (0.66-1.25) mg/dL Glucose 127 H (74-99) mg/dL POC Glucose (mg/dL) 139 H 155 H (75-99) mg/dL Hemoglobin A1c (4.0-6.0) % Plasma Lactic Acid Neymar (0.7-2.0) mmol/L Phosphorus (2.5-4.5) mg/dL AST (17-59) U/L ALT (21-72) U/L Alkaline Phosphatase (38-126) U/L Lipase (23-300) U/L Urine Glucose (UA) (Negative) Urine Ketones (Negative) 10/09/17 10/09/17 10/09/17 Range/Units 01:05 02:01 03:06 WBC (3.8-10.6) k/uL Neutrophils # (1.3-7.7) k/uL Monocytes # (0-1.0) k/uL Carbon Dioxide (22-30) mmol/L BUN (9-20) mg/dL Creatinine (0.66-1.25) mg/dL Glucose (74-99) mg/dL POC Glucose (mg/dL) 118 H 118 H 143 H (75-99) mg/dL Hemoglobin A1c (4.0-6.0) % Plasma Lactic Acid Neymar (0.7-2.0) mmol/L Phosphorus (2.5-4.5) mg/dL AST (17-59) U/L ALT (21-72) U/L Alkaline Phosphatase (38-126) U/L Lipase (23-300) U/L Urine Glucose (UA) (Negative) Urine Ketones (Negative) 10/09/17 10/09/17 10/09/17 Range/Units 04:14 04:15 04:15 WBC 20.0 H (3.8-10.6) k/uL Neutrophils # 16.2 H (1.3-7.7) k/uL Monocytes # (0-1.0) k/uL Carbon Dioxide (22-30) mmol/L BUN 23 H (9-20) mg/dL Creatinine 0.50 L (0.66-1.25) mg/dL Glucose 205 H (74-99) mg/dL POC Glucose (mg/dL) 212 H (75-99) mg/dL Hemoglobin A1c (4.0-6.0) % Plasma Lactic Acid Neymar (0.7-2.0) mmol/L Phosphorus (2.5-4.5) mg/dL AST (17-59) U/L ALT (21-72) U/L Alkaline Phosphatase (38-126) U/L Lipase (23-300) U/L Urine Glucose (UA) (Negative) Urine Ketones (Negative) 10/09/17 10/09/17 10/09/17 Range/Units 05:36 06:21 07:06 WBC (3.8-10.6) k/uL Neutrophils # (1.3-7.7) k/uL Monocytes # (0-1.0) k/uL Carbon Dioxide (22-30) mmol/L BUN (9-20) mg/dL Creatinine (0.66-1.25) mg/dL Glucose (74-99) mg/dL POC Glucose (mg/dL) 246 H 354 H >600 H (75-99) mg/dL Hemoglobin A1c (4.0-6.0) % Plasma Lactic Acid Neymar (0.7-2.0) mmol/L Phosphorus (2.5-4.5) mg/dL AST (17-59) U/L ALT (21-72) U/L Alkaline Phosphatase (38-126) U/L Lipase (23-300) U/L Urine Glucose (UA) (Negative) Urine Ketones (Negative) 10/09/17 10/09/17 10/09/17 Range/Units 07:07 08:14 09:06 WBC (3.8-10.6) k/uL Neutrophils # (1.3-7.7) k/uL Monocytes # (0-1.0) k/uL Carbon Dioxide (22-30) mmol/L BUN (9-20) mg/dL Creatinine (0.66-1.25) mg/dL Glucose (74-99) mg/dL POC Glucose (mg/dL) 288 H 276 H 247 H (75-99) mg/dL Hemoglobin A1c (4.0-6.0) % Plasma Lactic Acid Neymar (0.7-2.0) mmol/L Phosphorus (2.5-4.5) mg/dL AST (17-59) U/L ALT (21-72) U/L Alkaline Phosphatase (38-126) U/L Lipase (23-300) U/L Urine Glucose (UA) (Negative) Urine Ketones (Negative) 10/09/17 10/09/17 10/09/17 Range/Units 10:06 10:45 10:45 WBC 17.0 H (3.8-10.6) k/uL Neutrophils # 14.0 H (1.3-7.7) k/uL Monocytes # (0-1.0) k/uL Carbon Dioxide (22-30) mmol/L BUN (9-20) mg/dL Creatinine 0.40 L (0.66-1.25) mg/dL Glucose 256 H (74-99) mg/dL POC Glucose (mg/dL) 243 H (75-99) mg/dL Hemoglobin A1c (4.0-6.0) % Plasma Lactic Acid Neymar (0.7-2.0) mmol/L Phosphorus 1.5 L (2.5-4.5) mg/dL AST (17-59) U/L ALT (21-72) U/L Alkaline Phosphatase (38-126) U/L Lipase (23-300) U/L Urine Glucose (UA) (Negative) Urine Ketones (Negative) 10/09/17 10/09/17 10/09/17 Range/Units 11:00 12:08 14:01 WBC (3.8-10.6) k/uL Neutrophils # (1.3-7.7) k/uL Monocytes # (0-1.0) k/uL Carbon Dioxide (22-30) mmol/L BUN (9-20) mg/dL Creatinine (0.66-1.25) mg/dL Glucose (74-99) mg/dL POC Glucose (mg/dL) 235 H 206 H 199 H (75-99) mg/dL Hemoglobin A1c (4.0-6.0) % Plasma Lactic Acid Neymar (0.7-2.0) mmol/L Phosphorus (2.5-4.5) mg/dL AST (17-59) U/L ALT (21-72) U/L Alkaline Phosphatase (38-126) U/L Lipase (23-300) U/L Urine Glucose (UA) (Negative) Urine Ketones (Negative) Thrombosis Risk Factor Assmnt - Choose All That Apply Any of the Below Risk Factors Present?: No Other Risk Factors: No Other congenital or acquired thrombophilia - If yes, enter type in comment: No Thrombosis Risk Factor Assessment Level: Very Low Risk Assessment and Plan Plan: -Diabetic ketoacidosis: Possible precipitating factor is nausea vomiting from diabetic gastroparesis. Patient is still with nauseous and complaining of pain in the throat area secondary to retching. Patient is on Protonix patient in DKA protocol, will be switched to subcutaneous insulin was gap resolves at that time patient will be resumed onset Lantus 30 units which he uses at home along with pre-meal insulin of 10 units short-acting after which patient will be resumed on diabetic diet. -Anion gap metabolic acidosis secondary to diabetic ketoacidosis -Asthma without any acute exacerbation -Diabetic gastroparesis symptomatic management -Type 1 diabetes mellitus: He appears to have uncontrolled diabetes mellitus with hemoglobin A1c of 9 -Marijuana use: Counseling was provided -Leukocytosis: Reactive secondary to DKA will not require any antibiotics at this time -Bipolar disorder -Endocrine abnormalities and hyperphosphatasemia secondary to IV insulin which will be corrected -Diabetic peripheral neuropathy
[2017-10-09 15:03] LABS: Glucose,Whole Blood 175 mg/dL (75-99)
[2017-10-09 16:09] LABS: Glucose,Whole Blood 149 mg/dL (75-99)
[2017-10-09 16:10] VITALS: TEMP 98.3
[2017-10-09 17:03] LABS: Glucose,Whole Blood 145 mg/dL (75-99)
[2017-10-09 17:14] LABS: Anion Gap 8 mmol/L; Blood Urea Nitrogen 10 mg/dL (9-20); Calcium 8.4 mg/dL (8.4-10.2); Carbon Dioxide 28 mmol/L (22-30); Chloride 102 mmol/L (98-107); Glucose 159 mg/dL (74-99); Magnesium 2.2 mg/dL (1.6-2.3); Phosphorus 2.5 mg/dL (2.5-4.5); Potassium 3.9 mmol/L (3.5-5.1); Sodium 138 mmol/L (137-145)
[2017-10-09] MEDS ORDERED: INSULIN ASPART 100 UNIT/ML 1 ML 10 ML VIAL SQ SCH ×2 (17:30)
[2017-10-09] MEDS ORDERED: SODIUM CHLORIDE 0.9% 1,000 ML IV SCH (17:30)
[2017-10-09 18:08] LABS: Glucose,Whole Blood 158 mg/dL (75-99)
[2017-10-09 18:25] VITALS: BP 140/84; PULSE 78; RESP 14
[2017-10-09] MEDS ORDERED: INSULIN DETEMIR 100 UNIT/ML 10 ML VIAL SQ SCH (21:00)
--- NOTE | 2017-10-10 18:20 | P.DS ---
Providers Date of admission: 10/08/17 17:57 Attending physician: Wayne Moe Consults: 10/08/17 19:09 Consult Physician Routine Consulting Provider: Ameya Ames Consult Reason/Comments: ICU management Do you want consulting provider notified?: Yes Primary care physician: Pat Oquendo [place] [facility] Course: Patient left AMA Patient Condition at Discharge: Serious Plan - Discharge Summary Discharge Rx Participant: Yes New Discharge Prescriptions: No Action Pantoprazole [Protonix] 40 mg PO AC-BID #60 tablet. Ranitidine HCl [Zantac] 150 mg PO BID Metoclopramide [Reglan] 5 mg PO TID PRN PRN Reason: Nausea Albuterol Inhaler [Ventolin Hfa Inhaler] 1 - 2 puff INHALATION RT-Q6H PRN PRN Reason: Shortness Of Breath Oxybutynin Chloride [Ditropan XL] 5 mg PO DAILY Insulin Glulisine [Apidra] 10 unit SQ AC-TID Gabapentin [Neurontin] 100 mg PO HS ALPRAZolam [Xanax] 0.25 mg PO TID PRN #20 tab PRN Reason: Anxiety Lisinopril [Zestril] 5 mg PO DAILY #30 tab Insulin Glargine [Lantus] 30 unit SQ HS #1 Discharge Medication List Pantoprazole [Protonix] 40 mg PO AC-BID #60 tablet. 09/06/17 [Rx] Albuterol Inhaler [Ventolin Hfa Inhaler] 1 - 2 puff INHALATION RT-Q6H PRN [History] Gabapentin [Neurontin] 100 mg PO HS 09/23/17 [History] Insulin Glulisine [Apidra] 10 unit SQ AC-TID 09/23/17 [History] Metoclopramide [Reglan] 5 mg PO TID PRN 09/23/17 [History] Oxybutynin Chloride [Ditropan XL] 5 mg PO DAILY 09/23/17 [History] Ranitidine HCl [Zantac] 150 mg PO BID 09/23/17 [History] ALPRAZolam [Xanax] 0.25 mg PO TID PRN #20 tab 09/25/17 [Rx] Insulin Glargine [Lantus] 30 unit SQ HS #1 09/25/17 [Rx] Lisinopril [Zestril] 5 mg PO DAILY #30 tab 09/25/17 [Rx] Follow up Appointment(s)/Referral(s): Azra Stewart MD [Primary Care Provider] - 1-2 days Discharge Disposition: Left Against Medical Advice
== END 2017-10-09 18:26 | disposition left against medical advice (07) | DRG 638 ==
LOC: EC 15:57 → 6ICU 17:57
PROVIDERS: ADMIT Hospitalist; ATTEND Hospitalist
DX: E10.10 Type 1 diabetes mellitus with ketoacidosis without coma (principal); K92.0 Hematemesis; E10.43 Type 1 diabetes mellitus with diabetic autonomic (poly)neuropathy; E10.42 Type 1 diabetes mellitus with diabetic polyneuropathy; D72.829 Elevated white blood cell count, unspecified; E86.0 Dehydration; F12.90 Cannabis use, unspecified, uncomplicated; K31.84 Gastroparesis; F32.9 Major depressive disorder, single episode, unspecified; R07.0 Pain in throat; F17.200 Nicotine dependence, unspecified, uncomplicated; F41.9 Anxiety disorder, unspecified; Z79.4 Long term (current) use of insulin; Z79.899 Other long term (current) drug therapy; Z91.040 Latex allergy status; Z86.14 Personal history of Methicillin resistant Staphylococcus aureus infection; Z82.49 Family history of ischemic heart disease and other diseases of the circulatory system; Z82.5 Family history of asthma and other chronic lower respiratory diseases; Z84.89 Family history of other specified conditions
CPT/HCPCS: 36415; 36600; 74019; 80048; 80051; 80053; 81003; 82009; 82150; 82565; 82805; 82947; 83036; 83605; 83690; 83735; 84100; 84520; 85025; 96361; 96374; 96375; 99291

== ENCOUNTER 2017-12-26 16:07 | Emergency (ER) | payer OTHER ==
[2017-12-26 16:23] LABS: Glucose,Whole Blood 254 mg/dL (75-99)
[2017-12-26] MEDS ORDERED: SODIUM CHLORIDE 0.9% 1,000 ML IV STA (16:26)
[2017-12-26] MEDS ORDERED: ONDANSETRON 4 MG/2 ML VIAL IVP STA (16:26)
[2017-12-26] MEDS ORDERED: SODIUM CHLORIDE 0.9% 2,000 ML IV ONE (16:26)
--- NOTE | 2017-12-26 16:28 | ED ---
Nausea/Vomiting/Diarrhea HPI - General Chief complaint: Nausea/Vomiting/Diarrhea Stated complaint: High sugar Time Seen by Provider: 12/26/17 16:21 Source: patient, EMS, RN notes reviewed Mode of arrival: EMS Limitations: no limitations - History of Present Illness Initial comments: This is a 27-year-old male history diabetes who states he had the onset last evening of nausea vomiting with watery diarrhea. He denies any abdominal pain at this time he states his sugars were elevated but seemed weak coming down now. He states it his [id number] with a live with also has similar symptoms he denies any blood in his emesis or bowel movement. No other modifying factors. MD complaint: nausea, vomiting, diarrhea - Related Data Home Medications Medication Instructions Recorded Confirmed Albuterol Inhaler [Ventolin Hfa 1 - 2 puff INHALATION RT-Q6H PRN 09/23/17 Inhaler] Gabapentin [Neurontin] 100 mg PO HS 09/23/17 12/26/17 Insulin Glulisine [Apidra] 12 unit SQ AC-TID 09/23/17 12/26/17 Metoclopramide [Reglan] 5 mg PO TID PRN 09/23/17 12/26/17 Oxybutynin Chloride [Ditropan XL] 5 mg PO DAILY 09/23/17 12/26/17 Ranitidine HCl [Zantac] 150 mg PO BID 09/23/17 12/26/17 Previous Rx's Medication Instructions Recorded Pantoprazole [Protonix] 40 mg PO AC-BID #60 tablet. 09/06/17 ALPRAZolam [Xanax] 0.25 mg PO TID PRN #20 tab 09/25/17 Insulin Glargine [Lantus] 30 unit SQ HS #1 09/25/17 Lisinopril [Zestril] 5 mg PO DAILY #30 tab 09/25/17 Allergies Allergy/AdvReac Type Severity Reaction Status Date / Time latex Allergy Rash/Hives Verified 12/26/17 16:20 Review of Systems ROS Statement: Those systems with pertinent positive or pertinent negative responses have been documented in the HPI. ROS Other: All systems not noted in ROS Statement are negative. Past Medical History Past Medical History: Asthma, Diabetes Mellitus History of Any Multi-Drug Resistant Organisms: MRSA Date of last positivie culture/infection: 04/26/2014 MDRO Source:: Face Past Surgical History: No Surgical Hx Reported Additional Past Surgical History / Comment(s): right hand ortho surg, left leg ortho surg., eustachian tubes Past Anesthesia/Blood Transfusion Reactions: No Reported Reaction Past Psychological History: Anxiety, Bipolar, Depression Smoking Status: Current every day smoker Past Alcohol Use History: Rare Past Drug Use History: Marijuana - Past Family History Father Family Medical History: Hyperlipidemia, Hypertension Mother Family Medical History: COPD Additional Family Medical History / Comment(s): home O2, Brother(s) Family Medical History: No Reported History General Exam - General Exam Comments Initial Comments: This is a well-developed well-nourished awake alert oriented 3 male Limitations: no limitations General appearance: alert, in no apparent distress Head exam: Present: atraumatic, normocephalic, normal inspection Eye exam: Present: normal appearance, PERRL, EOMI. Absent: scleral icterus, conjunctival injection, periorbital swelling ENT exam: Present: mucous membranes dry Neck exam: Present: normal inspection. Absent: tenderness, meningismus, lymphadenopathy Respiratory exam: Present: normal lung sounds bilaterally. Absent: respiratory distress, wheezes, rales, rhonchi, stridor Cardiovascular Exam: Present: regular rate, normal rhythm, normal heart sounds. Absent: systolic murmur, diastolic murmur, rubs, gallop, clicks GI/Abdominal exam: Present: soft, normal bowel sounds. Absent: distended, tenderness, guarding, rebound, rigid Extremities exam: Present: normal inspection, full ROM, normal capillary refill. Absent: tenderness, pedal edema, joint swelling, calf tenderness Back exam: Present: normal inspection Neurological exam: Present: alert, oriented X3, CN II-XII intact Psychiatric exam: Present: normal affect, normal mood Skin exam: Present: warm, dry, intact, normal color. Absent: rash Course Vital Signs 12/26/17 16:14 Temperature 98.7 F Pulse Rate 78 Respiratory 18 Rate Blood Pressure 150/93 O2 Sat by Pulse 99 Oximetry Medical Decision Making - Medical Decision Making I did reevaluate patient several occasions he still much improved after IV hydration no more nausea or vomiting. His blood sugar has improved he received 2 half liters of fluid at this time I feel reevaluation of acetone was not indicated. He will be discharged the patient is in agreement with this. - Lab Data Result diagrams: 12/26/17 16:37 12/26/17 16:37 Lab Results 12/26/17 12/26/17 12/26/17 Range/Units 16:21 16:37 16:37 WBC 15.3 H (3.8-10.6) k/uL RBC 5.65 (4.30-5.90) m/uL Hgb 17.1 (13.0-17.5) gm/dL Hct 52.1 (39.0-53.0) % MCV 92.2 (80.0-100.0) fL MCH 30.3 (25.0-35.0) pg MCHC 32.8 (31.0-37.0) g/dL RDW 14.7 (11.5-15.5) % Plt Count 325 (150-450) k/uL Neutrophils % 85 % Lymphocytes % 10 % Monocytes % 4 % Eosinophils % 0 % Basophils % 0 % Neutrophils # 13.1 H (1.3-7.7) k/uL Lymphocytes # 1.5 (1.0-4.8) k/uL Monocytes # 0.5 (0-1.0) k/uL Eosinophils # 0.1 (0-0.7) k/uL Basophils # 0.0 (0-0.2) k/uL Sodium 144 (137-145) mmol/L Potassium 4.0 (3.5-5.1) mmol/L Chloride 100 (98-107) mmol/L Carbon Dioxide 29 (22-30) mmol/L Anion Gap 15 mmol/L BUN 23 H (9-20) mg/dL Creatinine 0.60 L (0.66-1.25) mg/dL Est GFR (CKD-EPI)AfAm >90 (>60 ml/min/1.73 sqM) Est GFR (CKD-EPI)NonAf >90 (>60 ml/min/1.73 sqM) Glucose 283 H (74-99) mg/dL POC Glucose (mg/dL) 254 H (75-99) mg/dL POC Glu Shadowgraph Scale Operator ID Zora, Teresa Calcium 10.1 (8.4-10.2) mg/dL Magnesium 2.1 (1.6-2.3) mg/dL Total Bilirubin 0.6 (0.2-1.3) mg/dL AST 25 (17-59) U/L ALT 28 (21-72) U/L Alkaline Phosphatase 121 (38-126) U/L Total Protein 8.0 (6.3-8.2) g/dL Albumin 4.9 (3.5-5.0) g/dL Amylase 62 (30-110) U/L Lipase <10 L (23-300) U/L Acetone, Qual Positive (Negative) 12/26/17 Range/Units 17:43 WBC (3.8-10.6) k/uL RBC (4.30-5.90) m/uL Hgb (13.0-17.5) gm/dL Hct (39.0-53.0) % MCV (80.0-100.0) fL MCH (25.0-35.0) pg MCHC (31.0-37.0) g/dL RDW (11.5-15.5) % Plt Count (150-450) k/uL Neutrophils % % Lymphocytes % % Monocytes % % Eosinophils % % Basophils % % Neutrophils # (1.3-7.7) k/uL Lymphocytes # (1.0-4.8) k/uL Monocytes # (0-1.0) k/uL Eosinophils # (0-0.7) k/uL Basophils # (0-0.2) k/uL Sodium (137-145) mmol/L Potassium (3.5-5.1) mmol/L Chloride (98-107) mmol/L Carbon Dioxide (22-30) mmol/L Anion Gap mmol/L BUN (9-20) mg/dL Creatinine (0.66-1.25) mg/dL Est GFR (CKD-EPI)AfAm (>60 ml/min/1.73 sqM) Est GFR (CKD-EPI)NonAf (>60 ml/min/1.73 sqM) Glucose (74-99) mg/dL POC Glucose (mg/dL) 166 H (75-99) mg/dL POC Glu Shadowgraph Scale Operator ID Calcium (8.4-10.2) mg/dL Magnesium (1.6-2.3) mg/dL Total Bilirubin (0.2-1.3) mg/dL AST (17-59) U/L ALT (21-72) U/L Alkaline Phosphatase (38-126) U/L Total Protein (6.3-8.2) g/dL Albumin (3.5-5.0) g/dL Amylase (30-110) U/L Lipase (23-300) U/L Acetone, Qual (Negative) Disposition Clinical Impression: Gastroenteritis, Dehydration, Hyperglycemia Disposition: HOME SELF-CARE Condition: Good Instructions: Acute Nausea and Vomiting (ED), Acute Diarrhea (ED), Dehydration (ED) Is patient prescribed a controlled substance at d/c from ED?: No Referrals: Azra Stewart MD [Primary Care Provider] - 1-2 days
[2017-12-26 16:52] LABS: Basophils % (A) 0 %; Eosinophils # (A) 0.1 k/uL (0-0.7); Eosinophils % (A) 0 %; HCT 52.1 % (39.0-53.0); HGB 17.1 gm/dL (13.0-17.5); Lymphocytes # (A) 1.5 k/uL (1.0-4.8); Lymphocytes % (A) 10 %; MCH 30.3 pg (25.0-35.0); MCHC 32.8 g/dL (31.0-37.0); MCV 92.2 fL (80.0-100.0); Monocytes # (A) 0.5 k/uL (0-1.0); Monocytes % (A) 4 %; Neutrophils # (A) 13.1 k/uL (1.3-7.7); Neutrophils % (A) 85 %; Platelet Count 325 k/uL (150-450); RBC 5.65 m/uL (4.30-5.90); RDW 14.7 % (11.5-15.5); WBC 15.3 k/uL (3.8-10.6)
[2017-12-26 17:03] LABS: ALT 28 U/L (21-72); AST 25 U/L (17-59); Albumin 4.9 g/dL (3.5-5.0); Alkaline Phosphatase 121 U/L (38-126); Amylase 62 U/L (30-110); Anion Gap 15 mmol/L; Blood Urea Nitrogen 23 mg/dL (9-20); Calcium 10.1 mg/dL (8.4-10.2); Carbon Dioxide 29 mmol/L (22-30); Chloride 100 mmol/L (98-107); Glucose 283 mg/dL (74-99); Lipase <10 U/L (23-300); Magnesium 2.1 mg/dL (1.6-2.3); Sodium 144 mmol/L (137-145); Total Bilirubin 0.6 mg/dL (0.2-1.3)
[2017-12-26] MEDS ORDERED: SODIUM CHLORIDE 0.9% 500 ML IV STA (17:38)
[2017-12-26 17:45] LABS: Glucose,Whole Blood 166 mg/dL (75-99)
[2017-12-26 18:24] VITALS: BP 146/85; PULSE 86; RESP 20; TEMP 98
== END 2017-12-26 18:30 | disposition home or self-care (01) ==
LOC: EC 16:07
DX: E11.65 Type 2 diabetes mellitus with hyperglycemia (principal); K52.9 Noninfective gastroenteritis and colitis, unspecified; E86.0 Dehydration; J45.909 Unspecified asthma, uncomplicated; F17.200 Nicotine dependence, unspecified, uncomplicated; Z86.14 Personal history of Methicillin resistant Staphylococcus aureus infection; Z79.4 Long term (current) use of insulin; Z79.899 Other long term (current) drug therapy; Z91.040 Latex allergy status
CPT/HCPCS: 99285; 96374; 96361 ×2; 36415; 80053; 82150; 82009; 83690; 83735; 85025; J2405

== ENCOUNTER 2017-12-27 23:38 | Inpatient (IN) | payer OTHER ==
[2017-12-28] MEDS ORDERED: SODIUM CHLORIDE 0.9% 1,000 ML IV STA ×3 (00:14→01:16)
[2017-12-28] MEDS ORDERED: ONDANSETRON 4 MG/2 ML VIAL IVP STA (00:14)
[2017-12-28] MEDS ORDERED: FAMOTIDINE 20 MG/2 ML VIAL IV STA (00:14)
--- NOTE | 2017-12-28 00:15 | ED ---
General Adult HPI - General Source: patient, RN notes reviewed Mode of arrival: wheelchair Limitations: no limitations <Pradeep Briseno - Last Filed: 12/28/17 01:17> <New Taylor - Last Filed: 01/03/18 07:25> - General Chief complaint: Nausea/Vomiting/Diarrhea Stated complaint: VOMITING Time Seen by Provider: 12/28/17 00:11 - History of Present Illness Initial comments: Patient 27-year-old male who is a type I diabetic, presenting with nausea vomiting over the last 2 days. Patient was seen here in the emergency room for same symptoms of nausea vomiting. He denies any signs of blood in the emesis. States that he is been unable to keep things down today. He states he was discharged home yesterday from the ER with nausea medication which helped initially but has not been working. Patient doesn't to abdominal cramping that comes and goes. He denies any other complaints or symptoms. Patient denies any recent fever, chills, shortness of breath, chest pain, back pain, numbness or tingling, dysuria or hematuria, constipation or diarrhea, headaches or visual changes, or any other complaints. (Pradeep Briseno) - Related Data Home Medications Medication Instructions Recorded Confirmed Albuterol Inhaler [Ventolin Hfa 1 - 2 puff INHALATION RT-Q6H PRN 09/23/17 Inhaler] Gabapentin [Neurontin] 100 mg PO HS 09/23/17 12/28/17 Insulin Glulisine [Apidra] 12 unit SQ AC-TID 09/23/17 12/28/17 Metoclopramide [Reglan] 5 mg PO TID PRN 09/23/17 12/28/17 Oxybutynin Chloride [Ditropan XL] 5 mg PO DAILY 09/23/17 12/28/17 Ranitidine HCl [Zantac] 150 mg PO BID 09/23/17 12/28/17 Previous Rx's Medication Instructions Recorded Pantoprazole [Protonix] 40 mg PO AC-BID #60 tablet. 09/06/17 ALPRAZolam [Xanax] 0.25 mg PO TID PRN #20 tab 09/25/17 Insulin Glargine [Lantus] 30 unit SQ HS #1 09/25/17 Lisinopril [Zestril] 5 mg PO DAILY #30 tab 09/25/17 Allergies Allergy/AdvReac Type Severity Reaction Status Date / Time latex Allergy Rash/Hives Verified 12/28/17 08:38 Review of Systems ROS Other: All systems not noted in ROS Statement are negative. <Pradeep Briseno - Last Filed: 12/28/17 01:17> ROS Other: All systems not noted in ROS Statement are negative. <New Taylor - Last Filed: 01/03/18 07:25> ROS Statement: Those systems with pertinent positive or pertinent negative responses have been documented in the HPI. Past Medical History Past Medical History: Asthma, Diabetes Mellitus History of Any Multi-Drug Resistant Organisms: MRSA Date of last positivie culture/infection: 04/26/2014 MDRO Source:: Face Past Surgical History: No Surgical Hx Reported Additional Past Surgical History / Comment(s): right hand ortho surg, left leg ortho surg., eustachian tubes Past Anesthesia/Blood Transfusion Reactions: No Reported Reaction Past Psychological History: Anxiety, Bipolar, Depression Smoking Status: Current every day smoker Past Alcohol Use History: Rare Past Drug Use History: Marijuana - Past Family History Father Family Medical History: Hyperlipidemia, Hypertension Mother Family Medical History: COPD Additional Family Medical History / Comment(s): home O2, Brother(s) Family Medical History: No Reported History <Pradeep Briseno - Last Filed: 12/28/17 01:17> General Exam Limitations: no limitations <Pradeep Briseno - Last Filed: 12/28/17 01:17> <New Taylor - Last Filed: 01/03/18 07:25> - General Exam Comments Initial Comments: General: The patient is awake and alert, in no distress, and does not appear acutely ill. Eye: Pupils are equal, round and reactive to light, extra-ocular movements are intact. No nystagmus. There is normal conjunctiva bilaterally. No signs of icterus. Ears, nose, mouth and throat: There are moist mucous membranes and no oral lesions. Neck: The neck is supple, there is no tenderness or JVD. Cardiovascular: There is a regular rate and rhythm. No murmur, rub or gallop is appreciated. Respiratory: Lungs are clear to auscultation, respirations are non-labored, breath sounds are equal. No wheezes, stridor, rales, or rhonchi. Gastrointestinal: Abdomen soft on palpation. No rebound, guarding or CVA tenderness. Musculoskeletal: Normal ROM, no tenderness. Strength 5/5. Sensation intact. Pulses equal bilaterally 2+. Neurological: A&O x 3. CN II-XII intact, There are no obvious motor or sensory deficits. Coordination appears grossly intact. Speech is normal. Skin: Skin is warm and dry and no rashes or lesions are noted. Psychiatric: Cooperative, appropriate mood & affect, normal judgment. (Pradeep Briseno) Vital Signs 12/27/17 12/28/17 12/28/17 23:42 01:19 03:28 Temperature 98.7 F Pulse Rate 77 85 71 Respiratory 14 18 18 Rate Blood Pressure 125/79 129/67 157/82 O2 Sat by Pulse 98 97 97 Oximetry Medical Decision Making - Lab Data Result diagrams: 12/28/17 00:32 12/28/17 00:32 <Pradeep Briseno - Last Filed: 12/28/17 01:17> - Lab Data Result diagrams: 12/29/17 05:54 12/29/17 05:54 <New Taylor - Last Filed: 01/03/18 07:25> - Medical Decision Making Patient's labs been reviewed and does show white count 20,000. Patient's abdomen also blood cells nausea vomiting. This is increased from his labs seen here yesterday. Patient's glucose of 319. Does have 4+ ketones and glucose in his urine. Acetone positive. Patient will be admitted to the hospital was given total 2 L of fluids here in the emergency room 5 units of regular insulin IV. We'll be continued. Monitor closely is feeling better at this time. ( Pradeep Briseno) Resident/PA attestation: I, Dr. New Taylor, personally saw and examined the patient. I have reviewed and agree with the resident/PA findings, including all diagnostic interpretations and treatment plans as written unless otherwise stated. I was present for the alarcon portions of any procedures performed and inclusive time noted for any critical care statement. (New Taylor) - Lab Data Lab Results 07/25/18 07/25/18 07/25/18 Range/Units 00:32 00:32 00:34 WBC 20.7 H (3.8-10.6) k/uL RBC 5.35 (4.30-5.90) m/uL Hgb 15.8 (13.0-17.5) gm/dL Hct 49.8 (39.0-53.0) % MCV 93.1 (80.0-100.0) fL MCH 29.6 (25.0-35.0) pg MCHC 31.8 (31.0-37.0) g/dL RDW 14.4 (11.5-15.5) % Plt Count 335 (150-450) k/uL Neutrophils % 89 % Lymphocytes % 6 % Monocytes % 3 % Eosinophils % 1 % Basophils % 0 % Neutrophils # 18.4 H (1.3-7.7) k/uL Lymphocytes # 1.3 (1.0-4.8) k/uL Monocytes # 0.6 (0-1.0) k/uL Eosinophils # 0.1 (0-0.7) k/uL Basophils # 0.0 (0-0.2) k/uL Sodium 136 L (137-145) mmol/L Potassium 5.7 H (3.5-5.1) mmol/L Chloride 101 (98-107) mmol/L Carbon Dioxide 18 L (22-30) mmol/L Anion Gap 17 mmol/L BUN 25 H (9-20) mg/dL Creatinine 0.50 L (0.66-1.25) mg/dL Est GFR (CKD-EPI)AfAm >90 (>60 ml/min/1.73 sqM) Est GFR (CKD-EPI)NonAf >90 (>60 ml/min/1.73 sqM) Glucose 319 H (74-99) mg/dL Estimated Ave Glu mg/dL 217 Hemoglobin A1c 9.2 H (4.0-6.0) % Calcium 9.1 (8.4-10.2) mg/dL Total Bilirubin 0.9 (0.2-1.3) mg/dL AST 31 (17-59) U/L ALT 27 (21-72) U/L Alkaline Phosphatase 107 (38-126) U/L Total Protein 6.8 (6.3-8.2) g/dL Albumin 4.1 (3.5-5.0) g/dL Amylase 49 (30-110) U/L Lipase 14 L (23-300) U/L Urine Color Urine Appearance (Clear) Urine pH (5.0-8.0) Ur Specific [facility] (1.001-1.035) Urine Protein (Negative) Urine Glucose (UA) (Negative) Urine Ketones (Negative) Urine Blood (Negative) Urine Nitrite (Negative) Urine Bilirubin (Negative) Urine Urobilinogen (<2.0) mg/dL Ur Leukocyte Esterase (Negative) Acetone, Qual Positive (Negative) 12/28/17 Range/Units 00:51 WBC (3.8-10.6) k/uL RBC (4.30-5.90) m/uL Hgb (13.0-17.5) gm/dL Hct (39.0-53.0) % MCV (80.0-100.0) fL MCH (25.0-35.0) pg MCHC (31.0-37.0) g/dL RDW (11.5-15.5) % Plt Count (150-450) k/uL Neutrophils % % Lymphocytes % % Monocytes % % Eosinophils % % Basophils % % Neutrophils # (1.3-7.7) k/uL Lymphocytes # (1.0-4.8) k/uL Monocytes # (0-1.0) k/uL Eosinophils # (0-0.7) k/uL Basophils # (0-0.2) k/uL Sodium (137-145) mmol/L Potassium (3.5-5.1) mmol/L Chloride (98-107) mmol/L Carbon Dioxide (22-30) mmol/L Anion Gap mmol/L BUN (9-20) mg/dL Creatinine (0.66-1.25) mg/dL Est GFR (CKD-EPI)AfAm (>60 ml/min/1.73 sqM) Est GFR (CKD-EPI)NonAf (>60 ml/min/1.73 sqM) Glucose (74-99) mg/dL Estimated Ave Glu mg/dL Hemoglobin A1c (4.0-6.0) % Calcium (8.4-10.2) mg/dL Total Bilirubin (0.2-1.3) mg/dL AST (17-59) U/L ALT (21-72) U/L Alkaline Phosphatase (38-126) U/L Total Protein (6.3-8.2) g/dL Albumin (3.5-5.0) g/dL Amylase (30-110) U/L Lipase (23-300) U/L Urine Color Light Yellow Urine Appearance Clear (Clear) Urine pH 5.5 (5.0-8.0) Ur Specific [place] 1.027 (1.001-1.035) Urine Protein Trace H (Negative) Urine Glucose (UA) 4+ H (Negative) Urine Ketones 4+ H (Negative) Urine Blood Negative (Negative) Urine Nitrite Negative (Negative) Urine Bilirubin Negative (Negative) Urine Urobilinogen <2.0 (<2.0) mg/dL Ur Leukocyte Esterase Negative (Negative) Acetone, Qual (Negative) Disposition Is patient prescribed a controlled substance at d/c from ED?: No Time of Disposition: 01:20 <Pradeep Briseno - Last Filed: 12/28/17 01:17> <New Taylor - Last Filed: 01/03/18 07:25> Clinical Impression: DKA (diabetic ketoacidoses), Dehydration Disposition: ADMITTED IP TO THIS HOSP Condition: Good
[2017-12-28 00:42] LABS: Basophils % (A) 0 %; Eosinophils # (A) 0.1 k/uL (0-0.7); Eosinophils % (A) 1 %; HCT 49.8 % (39.0-53.0); HGB 15.8 gm/dL (13.0-17.5); Lymphocytes # (A) 1.3 k/uL (1.0-4.8); Lymphocytes % (A) 6 %; MCH 29.6 pg (25.0-35.0); MCHC 31.8 g/dL (31.0-37.0); MCV 93.1 fL (80.0-100.0); Mean Platelet Volume 7.7; Monocytes # (A) 0.6 k/uL (0-1.0); Monocytes % (A) 3 %; Neutrophils # (A) 18.4 k/uL (1.3-7.7); Neutrophils % (A) 89 %; Platelet Count 335 k/uL (150-450); RBC 5.35 m/uL (4.30-5.90); RDW 14.4 % (11.5-15.5); WBC 20.7 k/uL (3.8-10.6)
[2017-12-28 00:58] LABS: Albumin 4.1 g/dL (3.5-5.0); Amylase 49 U/L (30-110); Glucose 319 mg/dL (74-99); Total Protein 6.8 g/dL (6.3-8.2)
[2017-12-28 00:59] LABS: ALT 27 U/L (21-72); AST 31 U/L (17-59); Alkaline Phosphatase 107 U/L (38-126); Anion Gap 17 mmol/L; Blood Urea Nitrogen 25 mg/dL (9-20); Calcium 9.1 mg/dL (8.4-10.2); Carbon Dioxide 18 mmol/L (22-30); Chloride 101 mmol/L (98-107); Lipase 14 U/L (23-300); Sodium 136 mmol/L (137-145); Total Bilirubin 0.9 mg/dL (0.2-1.3)
[2017-12-28 01:03] LABS: Potassium 5.7 mmol/L (3.5-5.1)
[2017-12-28 01:09] LABS: Appearance,Urine Clear (Clear); Bilirubin,Urine Negative (Negative); Blood,Urine Negative (Negative); Color,Urine Light Yellow; Glucose,Urine (UA) 4+ (Negative); Leukocyte Esterase,Urine Negative (Negative); Nitrite,Urine Negative (Negative); PH, Urine 5.5 (5.0-8.0); Protein,Urine Trace (Negative); Specific Gravity,Urine 1.027 (1.001-1.035); Urobilinogen,Urine <2.0 mg/dL (<2.0)
[2017-12-28 01:12] LABS: Ketones,Urine 4+ (Negative)
[2017-12-28] MEDS ORDERED: INSULIN REGULAR 100 UNIT/ML VIAL IV ONE (01:17)
[2017-12-28] MEDS ORDERED: LORazepam 2 MG/ML INJ IV PRN (01:21)
[2017-12-28] MEDS ORDERED: ACETAMINOPHEN TAB 325 MG TAB PO PRN (01:21)
[2017-12-28] MEDS ORDERED: NALOXONE 0.4 MG/ML 1 ML VIAL IV PRN (01:21)
[2017-12-28] MEDS ORDERED: ONDANSETRON 4 MG/2 ML VIAL IVP PRN (01:21)
[2017-12-28 03:27] LABS: Glucose,Whole Blood 227 mg/dL (75-99)
[2017-12-28 04:13] LABS: Glucose,Whole Blood 249 mg/dL (75-99)
[2017-12-28 05:57] LABS: Glucose,Whole Blood 320 mg/dL (75-99)
[2017-12-28 07:18] LABS: Anion Gap 20 mmol/L; Blood Urea Nitrogen 20 mg/dL (9-20); Calcium 8.7 mg/dL (8.4-10.2); Carbon Dioxide 13 mmol/L (22-30); Chloride 103 mmol/L (98-107); Glucose 314 mg/dL (74-99); Potassium 5.7 mmol/L (3.5-5.1); Sodium 136 mmol/L (137-145)
[2017-12-28] MEDS ORDERED: INSULIN ASPART 100 UNIT/ML 1 ML 10 ML VIAL SQ SCH (07:30)
[2017-12-28 09:52] VITALS: BMI 17.9
[2017-12-28 11:42] LABS: Glucose,Whole Blood 201 mg/dL (75-99)
[2017-12-28] MEDS ORDERED: INSULIN REGULAR 100 UNIT in SODIUM CHLORIDE 0.9% 100 ML IV SCH (12:00)
[2017-12-28 12:55] LABS: Anion Gap 14 mmol/L; Blood Urea Nitrogen 16 mg/dL (9-20); Carbon Dioxide 17 mmol/L (22-30); Chloride 102 mmol/L (98-107); Glucose 219 mg/dL (74-99); Phosphorus 3.1 mg/dL (2.5-4.5); Potassium 4.7 mmol/L (3.5-5.1); Sodium 133 mmol/L (137-145)
[2017-12-28] MEDS ORDERED: D5-0.45% NACL WITH KCL 20MEQ/L 1,000 ML IV SCH (13:00)
[2017-12-28] MEDS: SODIUM CHLORIDE 0.9% 1,000 ML IV SCH ×3 (13:14→18:52)
[2017-12-28 13:37] LABS: Glucose,Whole Blood 240 mg/dL (75-99)
[2017-12-28 14:26] LABS: Glucose,Whole Blood 229 mg/dL (75-99)
[2017-12-28] MEDS ORDERED: ALBUTEROL NEBULIZED 2.5 MG/3 ML INHALATION PRN (15:28)
--- NOTE | 2017-12-28 15:35 | P.HPIM ---
History of Present Illness 27-year-old pleasant gentleman history of type 2 diabetes mellitus has been under a lot of stress at home because of which his blood sugars were fluctuating was having nausea vomiting couple days ago came in with elevated blood sugars abdominal pain found to have diabetic ketoacidosis subsequently admitted to the hospital patient normally is a 30 units of Lantus and the pre- meal insulin. Patient then will be switched to IV normal saline, patient is presently on D5 half-normal saline with the insulin patient anion gap went up to 20 now down to 14. Review of Systems REVIEW OF SYSTEMS: CONSTITUTIONAL: No fever, no malaise, no fatigue. HEENT: No recent visual problems or hearing problems. Denied any sore throat. CARDIOVASCULAR: No chest pain, orthopnea, PND, no palpitations, no syncope. PULMONARY: No shortness of breath, no cough, no hemoptysis. GASTROINTESTINAL: No diarrhea, Normoactive bowel sounds. NEUROLOGICAL: No headaches, no weakness, no numbness. HEMATOLOGICAL: Denies any bleeding or petechiae. GENITOURINARY: Denies any burning micturition, frequency, or urgency. MUSCULOSKELETAL/RHEUMATOLOGICAL: Denies any joint pain, swelling, or any muscle pain. ENDOCRINE: Denies any polyuria or polydipsia. The rest of the 14-point review of systems is negative. Past Medical History Past Medical History: Asthma, Diabetes Mellitus History of Any Multi-Drug Resistant Organisms: MRSA Date of last positivie culture/infection: 04/26/2014 MDRO Source:: Face Past Surgical History: No Surgical Hx Reported Additional Past Surgical History / Comment(s): right hand ortho surg, left leg ortho surg., eustachian tubes Past Anesthesia/Blood Transfusion Reactions: No Reported Reaction Past Psychological History: Anxiety, Bipolar, Depression Additional Psychological History / Comment(s): patient states he has been diagnosed with anxiety/depression/bipolar but does not currently take any medications. Smoking Status: Current every day smoker Past Alcohol Use History: None Reported Past Drug Use History: Marijuana Additional Drug Use History / Comment(s): Occasional marijuana use. - Past Family History Father Family Medical History: Hyperlipidemia, Hypertension Mother Family Medical History: COPD Additional Family Medical History / Comment(s): home O2, Brother(s) Family Medical History: No Reported History Medications and Allergies Home Medications Medication Instructions Recorded Confirmed Type Pantoprazole [Protonix] 40 mg PO AC-BID #60 tablet. 09/06/17 12/28/17 Rx Albuterol Inhaler [Ventolin Hfa 1 - 2 puff INHALATION RT-Q6H PRN 09/23/17 History Inhaler] Gabapentin [Neurontin] 100 mg PO HS 09/23/17 12/28/17 History Insulin Glulisine [Apidra] 12 unit SQ AC-TID 09/23/17 12/28/17 History Metoclopramide [Reglan] 5 mg PO TID PRN 09/23/17 12/28/17 History Oxybutynin Chloride [Ditropan XL] 5 mg PO DAILY 09/23/17 12/28/17 History Ranitidine HCl [Zantac] 150 mg PO BID 09/23/17 12/28/17 History ALPRAZolam [Xanax] 0.25 mg PO TID PRN #20 tab 09/25/17 12/28/17 Rx Insulin Glargine [Lantus] 30 unit SQ HS #1 09/25/17 12/28/17 Rx Lisinopril [Zestril] 5 mg PO DAILY #30 tab 09/25/17 12/28/17 Rx Allergies Allergy/AdvReac Type Severity Reaction Status Date / Time latex Allergy Rash/Hives Verified 12/28/17 08:38 Physical Exam Vitals: Vital Signs Temp Pulse Pulse Resp BP BP Pulse Ox 12/28/17 12:00 68 12 145/68 98 12/28/17 08:00 97.8 F 87 18 142/80 97 12/28/17 04:09 98.4 F 87 18 143/73 97 12/28/17 03:28 71 18 157/82 97 12/28/17 01:19 85 18 129/67 97 12/27/17 23:42 98.7 F 77 14 125/79 98 Intake and Output 12/28/17 12/28/17 12/28/17 06:59 14:59 22:59 Intake Total 2200 240 Output Total 350 Balance 1850 240 Intake: Amount of Fluid Infused ( 2200 ml) Oral 240 Output: Urine 350 Other: Voiding Method Urinal Urinal # Voids 1 600 # Bowel Movements 0 Weight 56.6 kg 56.6 kg PHYSICAL EXAMINATION: GENERAL: The patient is alert and oriented x3, not in any acute distress. Thin built HEENT: Pupils are round and equally reacting to light. EOMI. No scleral icterus. No conjunctival pallor. Normocephalic, atraumatic. No pharyngeal erythema. No thyromegaly. CARDIOVASCULAR: S1 and S2 present. No murmurs, rubs, or gallops. PULMONARY: Chest is clear to auscultation, no wheezing or crackles. ABDOMEN: Soft, nontender, nondistended, normoactive bowel sounds. No palpable organomegaly. MUSCULOSKELETAL: No joint swelling or deformity. EXTREMITIES: No cyanosis, clubbing, or pedal edema. NEUROLOGICAL: Gross neurological examination did not reveal any focal deficits. SKIN: No rashes. Results CBC & Chem 7: 12/28/17 00:32 12/28/17 12:11 Labs: Abnormal Lab Results - Last 24 Hours (Table) 12/28/17 12/28/17 12/28/17 Range/Units 00:32 00:32 00:51 WBC 20.7 H (3.8-10.6) k/uL Neutrophils # 18.4 H (1.3-7.7) k/uL Sodium 136 L (137-145) mmol/L Potassium 5.7 H (3.5-5.1) mmol/L Carbon Dioxide 18 L (22-30) mmol/L BUN 25 H (9-20) mg/dL Creatinine 0.50 L (0.66-1.25) mg/dL Glucose 319 H (74-99) mg/dL POC Glucose (mg/dL) (75-99) mg/dL Lipase 14 L (23-300) U/L Urine Protein Trace H (Negative) Urine Glucose (UA) 4+ H (Negative) Urine Ketones 4+ H (Negative) 12/28/17 12/28/17 12/28/17 Range/Units 03:24 04:11 05:43 WBC (3.8-10.6) k/uL Neutrophils # (1.3-7.7) k/uL Sodium 136 L (137-145) mmol/L Potassium 5.7 H (3.5-5.1) mmol/L Carbon Dioxide 13 L (22-30) mmol/L BUN (9-20) mg/dL Creatinine 0.58 L (0.66-1.25) mg/dL Glucose 314 H (74-99) mg/dL POC Glucose (mg/dL) 227 H 249 H (75-99) mg/dL Lipase (23-300) U/L Urine Protein (Negative) Urine Glucose (UA) (Negative) Urine Ketones (Negative) 12/28/17 12/28/17 12/28/17 Range/Units 05:54 11:17 12:11 WBC (3.8-10.6) k/uL Neutrophils # (1.3-7.7) k/uL Sodium 133 L (137-145) mmol/L Potassium (3.5-5.1) mmol/L Carbon Dioxide 17 L (22-30) mmol/L BUN (9-20) mg/dL Creatinine 0.50 L (0.66-1.25) mg/dL Glucose 219 H (74-99) mg/dL POC Glucose (mg/dL) 320 H 201 H (75-99) mg/dL Lipase (23-300) U/L Urine Protein (Negative) Urine Glucose (UA) (Negative) Urine Ketones (Negative) 12/28/17 12/28/17 Range/Units 13:16 14:05 WBC (3.8-10.6) k/uL Neutrophils # (1.3-7.7) k/uL Sodium (137-145) mmol/L Potassium (3.5-5.1) mmol/L Carbon Dioxide (22-30) mmol/L BUN (9-20) mg/dL Creatinine (0.66-1.25) mg/dL Glucose (74-99) mg/dL POC Glucose (mg/dL) 240 H 229 H (75-99) mg/dL Lipase (23-300) U/L Urine Protein (Negative) Urine Glucose (UA) (Negative) Urine Ketones (Negative) Thrombosis Risk Factor Assmnt - Choose All That Apply Any of the Below Risk Factors Present?: No Other Risk Factors: No Each Risk Factor Represents 2 Points: Age 61-74 years Thrombosis Risk Factor Assessment Total Risk Factor Score: 2 Thrombosis Risk Factor Assessment Level: Very Low Risk Assessment and Plan Plan: -Diabetic ketoacidosis: Patient when DKA protocol. His DKA was precipitated by stress. Patient will remain nothing by mouth until anion gap resolves and then patient will be started on IV normal saline and subcutaneous insulin. -Abdominal pain secondary to DKA patient was started on Protonix -Hyperkalemia secondary to ketoacidosis -Leukocytosis reactive significant BK will repeat CBC tomorrow -Asthma without any acute exacerbation.
[2017-12-28 15:40] LABS: Glucose,Whole Blood 192 mg/dL (75-99)
[2017-12-28 16:58] LABS: Glucose,Whole Blood 182 mg/dL (75-99)
[2017-12-28 17:09] LABS: Anion Gap 9 mmol/L; Blood Urea Nitrogen 15 mg/dL (9-20); Carbon Dioxide 22 mmol/L (22-30); Chloride 103 mmol/L (98-107); Glucose 174 mg/dL (74-99); Phosphorus 1.7 mg/dL (2.5-4.5); Potassium 4.1 mmol/L (3.5-5.1); Sodium 134 mmol/L (137-145)
[2017-12-28 18:01] LABS: Glucose,Whole Blood 140 mg/dL (75-99)
[2017-12-28 18:45] LABS: Hemoglobin A1C 9.2 % (4.0-6.0)
[2017-12-28] MEDS: INSULIN ASPART 100 UNIT/ML 1 ML 10 ML VIAL SQ SCH (18:50)
[2017-12-28] MEDS: PANTOPRAZOLE 40 MG/10 ML VIAL IVP SCH (18:51)
[2017-12-28 20:30] LABS: Glucose,Whole Blood 161 mg/dL (75-99)
[2017-12-28] MEDS ORDERED: INSULIN DETEMIR 100 UNIT/ML 10 ML VIAL SQ SCH (21:00)
[2017-12-28 21:46] VITALS: RESP 18
[2017-12-29] MEDS: SODIUM CHLORIDE 0.9% 1,000 ML IV SCH (05:21)
[2017-12-29 06:18] LABS: Basophils % (A) 0 %; Eosinophils # (A) 0.1 k/uL (0-0.7); Eosinophils % (A) 1 %; HCT 46.5 % (39.0-53.0); HGB 15.3 gm/dL (13.0-17.5); Lymphocytes % (A) 23 %; MCHC 32.9 g/dL (31.0-37.0); MCV 91.4 fL (80.0-100.0); Mean Platelet Volume 6.8; Monocytes # (A) 0.6 k/uL (0-1.0); Monocytes % (A) 5 %; Neutrophils # (A) 8.7 k/uL (1.3-7.7); Neutrophils % (A) 68 %; Platelet Count 290 k/uL (150-450); RBC 5.09 m/uL (4.30-5.90); RDW 14.3 % (11.5-15.5); WBC 12.8 k/uL (3.8-10.6)
[2017-12-29 06:19] LABS: Glucose,Whole Blood 56 mg/dL (75-99)
[2017-12-29 06:49] LABS: Glucose,Whole Blood 82 mg/dL (75-99)
[2017-12-29 06:52] LABS: ALT 28 U/L (21-72); AST 19 U/L (17-59); Albumin 3.2 g/dL (3.5-5.0); Alkaline Phosphatase 94 U/L (38-126); Anion Gap 9 mmol/L; Blood Urea Nitrogen 13 mg/dL (9-20); Calcium 8.7 mg/dL (8.4-10.2); Carbon Dioxide 27 mmol/L (22-30); Chloride 102 mmol/L (98-107); Glucose 58 mg/dL (74-99); Potassium 3.6 mmol/L (3.5-5.1); Sodium 138 mmol/L (137-145); Total Bilirubin 0.7 mg/dL (0.2-1.3); Total Protein 5.7 g/dL (6.3-8.2)
[2017-12-29] MEDS: INSULIN ASPART 100 UNIT/ML 1 ML 10 ML VIAL SQ SCH (08:50)
[2017-12-29] MEDS: PANTOPRAZOLE 40 MG/10 ML VIAL IVP SCH (08:51)
[2017-12-29 08:58] VITALS: BP 142/87; PULSE 71; TEMP 98.5
[2017-12-29] MEDS ORDERED: OXYBUTYNIN XL 5 MG TAB.ER.24 PO SCH (09:00)
[2017-12-29 11:13] LABS: Glucose,Whole Blood 102 mg/dL (75-99)
--- NOTE | 2017-12-29 11:41 | P.DS ---
Providers Date of admission: 12/28/17 01:21 Attending physician: Wayne Moe Primary care physician: Pat Rodriguez Fabiola Hospital Course: Patient was admitted for DKA resolved patient is clinically doing well on his home regimen patient will be discharged back on home regimen. PHYSICAL EXAMINATION: GENERAL: The patient is alert and oriented x3, not in any acute distress. Well developed, well nourished. HEENT: Pupils are round and equally reacting to light. EOMI. No scleral icterus. No conjunctival pallor. Normocephalic, atraumatic. No pharyngeal erythema. No thyromegaly. CARDIOVASCULAR: S1 and S2 present. No murmurs, rubs, or gallops. PULMONARY: Chest is clear to auscultation, no wheezing or crackles. ABDOMEN: Soft, nontender, nondistended, normoactive bowel sounds. No palpable organomegaly. MUSCULOSKELETAL: No joint swelling or deformity. EXTREMITIES: No cyanosis, clubbing, or pedal edema. NEUROLOGICAL: Gross neurological examination did not reveal any focal deficits. SKIN: No rashes. For his hospitalization course and other medical problems please refer to my dictation of H&P from yesterday. Patient Condition at Discharge: Good Plan - Discharge Summary New Discharge Prescriptions: No Action Pantoprazole [Protonix] 40 mg PO AC-BID #60 tablet. Ranitidine HCl [Zantac] 150 mg PO BID Metoclopramide [Reglan] 5 mg PO TID PRN PRN Reason: Nausea Albuterol Inhaler [Ventolin Hfa Inhaler] 1 - 2 puff INHALATION RT-Q6H PRN PRN Reason: Shortness Of Breath Oxybutynin Chloride [Ditropan XL] 5 mg PO DAILY Insulin Glulisine [Apidra] 12 unit SQ AC-TID Gabapentin [Neurontin] 100 mg PO HS ALPRAZolam [Xanax] 0.25 mg PO TID PRN #20 tab PRN Reason: Anxiety Lisinopril [Zestril] 5 mg PO DAILY #30 tab Insulin Glargine [Lantus] 30 unit SQ HS #1 Discharge Medication List Pantoprazole [Protonix] 40 mg PO AC-BID #60 tablet. 09/06/17 [Rx] Albuterol Inhaler [Ventolin Hfa Inhaler] 1 - 2 puff INHALATION RT-Q6H PRN [History] Gabapentin [Neurontin] 100 mg PO HS 09/23/17 [History] Insulin Glulisine [Apidra] 12 unit SQ AC-TID 09/23/17 [History] Metoclopramide [Reglan] 5 mg PO TID PRN 09/23/17 [History] Oxybutynin Chloride [Ditropan XL] 5 mg PO DAILY 09/23/17 [History] Ranitidine HCl [Zantac] 150 mg PO BID 09/23/17 [History] ALPRAZolam [Xanax] 0.25 mg PO TID PRN #20 tab 09/25/17 [Rx] Insulin Glargine [Lantus] 30 unit SQ HS #1 09/25/17 [Rx] Lisinopril [Zestril] 5 mg PO DAILY #30 tab 09/25/17 [Rx] Follow up Appointment(s)/Referral(s): Azra Stewart MD [Primary Care Provider] - 01/04/18 2:30 pm (Tuesday) Patient Instructions/Handouts: Diabetic Ketoacidosis (DC)
== END 2017-12-29 12:01 | disposition home or self-care (01) | DRG 639 ==
LOC: EC 23:38 → 6SEL 12-28 01:21
PROVIDERS: ADMIT Hospitalist; ATTEND Hospitalist
DX: E10.10 Type 1 diabetes mellitus with ketoacidosis without coma (principal); E87.5 Hyperkalemia; E86.0 Dehydration; J45.909 Unspecified asthma, uncomplicated; F41.9 Anxiety disorder, unspecified; F17.200 Nicotine dependence, unspecified, uncomplicated; F32.9 Major depressive disorder, single episode, unspecified; Z79.4 Long term (current) use of insulin; Z79.899 Other long term (current) drug therapy; Z91.040 Latex allergy status; Z86.14 Personal history of Methicillin resistant Staphylococcus aureus infection; Z82.49 Family history of ischemic heart disease and other diseases of the circulatory system; Z83.49 Family history of other endocrine, nutritional and metabolic diseases; Z82.5 Family history of asthma and other chronic lower respiratory diseases
CPT/HCPCS: 36415; 80048; 80051; 80053; 81003; 82009; 82150; 82565; 82947; 83036; 83690; 84100; 84520; 85025; 96361; 96374; 96375; 99284

== ENCOUNTER 2018-02-14 08:36 | Inpatient (IN) | payer OTHER ==
[2018-02-14] MEDS ORDERED: SODIUM CHLORIDE 0.9% 1,000 ML IV STA ×2 (08:47)
[2018-02-14] MEDS ORDERED: PANTOPRAZOLE 40 MG/10 ML VIAL IVP STA (08:47)
[2018-02-14] MEDS ORDERED: ONDANSETRON 4 MG/2 ML VIAL IVP STA (08:47)
--- NOTE | 2018-02-14 08:50 | ED ---
General Adult HPI - General Chief complaint: Abdominal Pain Stated complaint: dizzy, vomiting Time Seen by Provider: 02/14/18 08:45 Source: patient, RN notes reviewed Mode of arrival: ambulatory Limitations: no limitations - History of Present Illness Initial comments: Patient was 27-year-old male significant past medical history for diabetes, presented to the emergency room today with a chief complaint of symptoms of nausea vomiting that started yesterday. Patient does admit to abdominal pain. Patient states located throughout the abdomen. Patient does admit that his had similar symptoms in the past with his diabetes. Patient denies any other complaints currently. Patient denies any recent fever, chills, shortness of breath, chest pain, numbness or tingling, dysuria or hematuria, constipation or diarrhea, headaches or visual changes, or any other complaints. - Related Data Home Medications Medication Instructions Recorded Confirmed Albuterol Inhaler [Ventolin Hfa 1 - 2 puff INHALATION RT-Q6H PRN 09/23/17 Inhaler] Gabapentin [Neurontin] 100 mg PO HS 09/23/17 12/28/17 Insulin Glulisine [Apidra] 12 unit SQ AC-TID 09/23/17 12/28/17 Metoclopramide [Reglan] 5 mg PO TID PRN 09/23/17 12/28/17 Oxybutynin Chloride [Ditropan XL] 5 mg PO DAILY 09/23/17 12/28/17 Ranitidine HCl [Zantac] 150 mg PO BID 09/23/17 12/28/17 Previous Rx's Medication Instructions Recorded Pantoprazole [Protonix] 40 mg PO AC-BID #60 tablet. 09/06/17 ALPRAZolam [Xanax] 0.25 mg PO TID PRN #20 tab 09/25/17 Insulin Glargine [Lantus] 30 unit SQ HS #1 09/25/17 Lisinopril [Zestril] 5 mg PO DAILY #30 tab 09/25/17 Allergies Allergy/AdvReac Type Severity Reaction Status Date / Time latex Allergy Rash/Hives Verified 12/28/17 08:38 Review of Systems ROS Statement: Those systems with pertinent positive or pertinent negative responses have been documented in the HPI. ROS Other: All systems not noted in ROS Statement are negative. Past Medical History Past Medical History: Asthma, Diabetes Mellitus History of Any Multi-Drug Resistant Organisms: MRSA Date of last positivie culture/infection: 04/26/2014 MDRO Source:: Face Past Surgical History: No Surgical Hx Reported Additional Past Surgical History / Comment(s): right hand ortho surg, left leg ortho surg., eustachian tubes Past Anesthesia/Blood Transfusion Reactions: No Reported Reaction Past Psychological History: Anxiety, Bipolar, Depression Smoking Status: Current every day smoker Past Alcohol Use History: None Reported Past Drug Use History: Marijuana - Past Family History Father Family Medical History: Hyperlipidemia, Hypertension Mother Family Medical History: COPD Additional Family Medical History / Comment(s): home O2, Brother(s) Family Medical History: No Reported History General Exam - General Exam Comments Initial Comments: General: The patient is awake and alert, in mild distress. Eye: Extra-ocular movements are intact. No nystagmus. There is normal conjunctiva bilaterally. No signs of icterus. Ears, nose, mouth and throat: There are moist mucous membranes and no oral lesions. Neck: The neck is supple, there is no tenderness or JVD. Cardiovascular: There is a regular rate and rhythm. No murmur, rub or gallop is appreciated. Respiratory: Lungs are clear to auscultation, respirations are non-labored, breath sounds are equal. No wheezes, stridor, rales, or rhonchi. Gastrointestinal: Soft on palpation. Patient does have mild diffuse tenderness both upper and lower quadrant. No rebound, guarding or CVA tenderness. Musculoskeletal: Normal ROM, no tenderness. Sensation intact. Neurological: A&O x 3. CN II-XII intact, There are no obvious motor or sensory deficits. Coordination appears grossly intact. Speech is normal. Skin: Skin is warm and dry and no rashes or lesions are noted. Psychiatric: Cooperative, appropriate mood & affect, normal judgment. Limitations: no limitations Course Vital Signs 02/14/18 08:40 Temperature 97.9 F Pulse Rate 106 H Respiratory 18 Rate Blood Pressure 151/82 O2 Sat by Pulse 98 Oximetry Medical Decision Making - Medical Decision Making 0951: Patient reexamined at this time is resting comfortable. Does admit that he is feeling better here in the emergency room. Patient started on 2 L of IV fluids the patient's insulin drip. Patient's labs been reviewed shows show 19, 000 white count. Acetone positive with 25. Patient does have positive ketones in urine. Patient will be admitted continued on DKA protocol. - Lab Data Result diagrams: 02/14/18 09:04 02/14/18 09:04 Lab Results 02/14/18 02/14/18 02/14/18 Range/Units 09:00 09:02 09:04 WBC (3.8-10.6) k/uL RBC (4.30-5.90) m/uL Hgb (13.0-17.5) gm/dL Hct (39.0-53.0) % MCV (80.0-100.0) fL MCH (25.0-35.0) pg MCHC (31.0-37.0) g/dL RDW (11.5-15.5) % Plt Count (150-450) k/uL Neutrophils % % Lymphocytes % % Monocytes % % Eosinophils % % Basophils % % Neutrophils # (1.3-7.7) k/uL Lymphocytes # (1.0-4.8) k/uL Monocytes # (0-1.0) k/uL Eosinophils # (0-0.7) k/uL Basophils # (0-0.2) k/uL Sodium 142 (137-145) mmol/L Potassium 5.3 H (3.5-5.1) mmol/L Chloride 99 (98-107) mmol/L Carbon Dioxide 18 L (22-30) mmol/L Anion Gap 25 mmol/L BUN 31 H (9-20) mg/dL Creatinine 0.72 (0.66-1.25) mg/dL Est GFR (CKD-EPI)AfAm >90 (>60 ml/min/1.73 sqM) Est GFR (CKD-EPI)NonAf >90 (>60 ml/min/1.73 sqM) Glucose 548 H* (74-99) mg/dL POC Glucose (mg/dL) 480 H (75-99) mg/dL POC Glu Test Lab Technician ID Janelle Molina Calcium 10.0 (8.4-10.2) mg/dL Total Bilirubin 1.2 (0.2-1.3) mg/dL AST 29 (17-59) U/L ALT 29 (21-72) U/L Alkaline Phosphatase 152 H (38-126) U/L Total Protein 7.8 (6.3-8.2) g/dL Albumin 4.6 (3.5-5.0) g/dL Amylase 51 (30-110) U/L Lipase 19 L (23-300) U/L Urine Color Light Yellow Urine Appearance Clear (Clear) Urine pH 5.0 (5.0-8.0) Ur Specific Schlater 1.024 (1.001-1.035) Urine Protein Negative (Negative) Urine Glucose (UA) 4+ H (Negative) Urine Ketones 4+ H (Negative) Urine Blood Negative (Negative) Urine Nitrite Negative (Negative) Urine Bilirubin Negative (Negative) Urine Urobilinogen <2.0 (<2.0) mg/dL Ur Leukocyte Esterase Negative (Negative) Acetone, Qual Positive (Negative) 02/14/18 Range/Units 09:04 WBC 19.8 H (3.8-10.6) k/uL RBC 5.49 (4.30-5.90) m/uL Hgb 16.6 (13.0-17.5) gm/dL Hct 52.9 (39.0-53.0) % MCV 96.3 (80.0-100.0) fL MCH 30.2 (25.0-35.0) pg MCHC 31.4 (31.0-37.0) g/dL RDW 14.0 (11.5-15.5) % Plt Count 323 (150-450) k/uL Neutrophils % 85 % Lymphocytes % 10 % Monocytes % 3 % Eosinophils % 0 % Basophils % 0 % Neutrophils # 16.8 H (1.3-7.7) k/uL Lymphocytes # 2.0 (1.0-4.8) k/uL Monocytes # 0.6 (0-1.0) k/uL Eosinophils # 0.0 (0-0.7) k/uL Basophils # 0.0 (0-0.2) k/uL Sodium (137-145) mmol/L Potassium (3.5-5.1) mmol/L Chloride (98-107) mmol/L Carbon Dioxide (22-30) mmol/L Anion Gap mmol/L BUN (9-20) mg/dL Creatinine (0.66-1.25) mg/dL Est GFR (CKD-EPI)AfAm (>60 ml/min/1.73 sqM) Est GFR (CKD-EPI)NonAf (>60 ml/min/1.73 sqM) Glucose (74-99) mg/dL POC Glucose (mg/dL) (75-99) mg/dL POC Glu Test Lab Technician ID Calcium (8.4-10.2) mg/dL Total Bilirubin (0.2-1.3) mg/dL AST (17-59) U/L ALT (21-72) U/L Alkaline Phosphatase (38-126) U/L Total Protein (6.3-8.2) g/dL Albumin (3.5-5.0) g/dL Amylase (30-110) U/L Lipase (23-300) U/L Urine Color Urine Appearance (Clear) Urine pH (5.0-8.0) Ur Specific Schlater (1.001-1.035) Urine Protein (Negative) Urine Glucose (UA) (Negative) Urine Ketones (Negative) Urine Blood (Negative) Urine Nitrite (Negative) Urine Bilirubin (Negative) Urine Urobilinogen (<2.0) mg/dL Ur Leukocyte Esterase (Negative) Acetone, Qual (Negative) Disposition Clinical Impression: DKA (diabetic ketoacidoses) Disposition: ADMITTED IP TO THIS HOSP Condition: Stable Is patient prescribed a controlled substance at d/c from ED?: No Referrals: Azra Stewart MD [Primary Care Provider] - 1-2 days Time of Disposition: 09:52
[2018-02-14 09:04] LABS: Glucose,Whole Blood 480 mg/dL (75-99)
[2018-02-14] MEDS ORDERED: diphenhydrAMINE 50 MG/ML 1 ML VIAL IVP STA (09:05)
[2018-02-14] MEDS ORDERED: METOCLOPRAMIDE 5 MG/ML 2 ML VIAL IVP STA (09:05)
[2018-02-14 09:17] LABS: HCT 52.9 % (39.0-53.0); HGB 16.6 gm/dL (13.0-17.5); RBC 5.49 m/uL (4.30-5.90); WBC 19.8 k/uL (3.8-10.6)
[2018-02-14 09:18] LABS: Appearance,Urine Clear (Clear); Bilirubin,Urine Negative (Negative); Blood,Urine Negative (Negative); Color,Urine Light Yellow; Glucose,Urine (UA) 4+ (Negative); Leukocyte Esterase,Urine Negative (Negative); Nitrite,Urine Negative (Negative); Protein,Urine Negative (Negative); Specific Gravity,Urine 1.024 (1.001-1.035); Urobilinogen,Urine <2.0 mg/dL (<2.0)
[2018-02-14 09:18] LABS: Basophils % (A) 0 %; Eosinophils % (A) 0 %; Lymphocytes % (A) 10 %; MCH 30.2 pg (25.0-35.0); MCHC 31.4 g/dL (31.0-37.0); MCV 96.3 fL (80.0-100.0); Mean Platelet Volume 8.6; Monocytes # (A) 0.6 k/uL (0-1.0); Monocytes % (A) 3 %; Neutrophils # (A) 16.8 k/uL (1.3-7.7); Neutrophils % (A) 85 %; Platelet Count 323 k/uL (150-450)
[2018-02-14 09:22] LABS: Ketones,Urine 4+ (Negative)
[2018-02-14 09:29] LABS: ALT 29 U/L (21-72); AST 29 U/L (17-59); Albumin 4.6 g/dL (3.5-5.0); Alkaline Phosphatase 152 U/L (38-126); Amylase 51 U/L (30-110); Anion Gap 25 mmol/L; Blood Urea Nitrogen 31 mg/dL (9-20); Carbon Dioxide 18 mmol/L (22-30); Chloride 99 mmol/L (98-107); Lipase 19 U/L (23-300); Potassium 5.3 mmol/L (3.5-5.1); Sodium 142 mmol/L (137-145); Total Bilirubin 1.2 mg/dL (0.2-1.3); Total Protein 7.8 g/dL (6.3-8.2)
[2018-02-14] MEDS ORDERED: INSULIN REGULAR 100 UNIT in SODIUM CHLORIDE 0.9% 100 ML IV SCH (09:30)
[2018-02-14 09:35] LABS: Glucose 548 mg/dL (74-99)
[2018-02-14 10:25] LABS: Glucose,Whole Blood 434 mg/dL (75-99)
[2018-02-14 11:43] LABS: Glucose,Whole Blood 334 mg/dL (75-99)
[2018-02-14] MEDS: SODIUM CHLORIDE 0.9% 1,000 ML IV SCH ×3 (11:59→20:14)
[2018-02-14 12:28] LABS: Glucose,Whole Blood 279 mg/dL (75-99)
[2018-02-14] MEDS: D5-0.45% NACL WITH KCL 20MEQ/L 1,000 ML IV SCH ×2 (12:40→21:15)
[2018-02-14 13:13] LABS: Anion Gap 16 mmol/L; Blood Urea Nitrogen 30 mg/dL (9-20); Carbon Dioxide 17 mmol/L (22-30); Chloride 112 mmol/L (98-107); Glucose 282 mg/dL (74-99); Phosphorus 3.2 mg/dL (2.5-4.5); Potassium 4.8 mmol/L (3.5-5.1); Sodium 145 mmol/L (137-145)
[2018-02-14 14:03] LABS: Glucose,Whole Blood 203 mg/dL (75-99)
[2018-02-14 15:28] LABS: Glucose,Whole Blood 176 mg/dL (75-99)
[2018-02-14] MEDS ORDERED: ALBUTEROL NEBULIZED 2.5 MG/3 ML INHALATION PRN (16:30)
[2018-02-14] MEDS ORDERED: LORazepam 1 MG TAB PO PRN (16:31)
[2018-02-14] MEDS ORDERED: HYDROcodone/APAP 5-325MG 1 EACH TAB PO PRN (16:31)
[2018-02-14] MEDS ORDERED: ALPRAZolam 0.25 MG TAB PO PRN (16:31)
[2018-02-14] MEDS ORDERED: TEMAZEPAM 15 MG CAP PO PRN (16:31)
[2018-02-14] MEDS ORDERED: HYDROmorphone 1 MG/ML 1 ML SYRINGE IVP PRN (16:32)
--- NOTE | 2018-02-14 17:09 | HP ---
HISTORY AND PHYSICAL CHIEF COMPLAINT: Abdominal pain, dizziness and vomiting. HISTORY OF PRESENT ILLNESS: This 27-year-old gentleman being followed by Dr. Stewart in the outpatient setting has history of asthma, diabetes, DJD, history of diabetic gastroparesis, history of neuropathy bilateral, anxiety, bipolar and depression. The patient is taking a combination Apidra and Lantus. Currently the patient is complaining of nausea, vomiting and abdominal pain started yesterday. The pain was felt in the center part of the abdomen which is radiating elsewhere. No history of diarrhea. No history of headache, loss of consciousness or seizures. The patient had features of early diabetic ketoacidosis. Patient admitted for further evaluation and treatment. CO2 was 17. Acetone was positive. The patient was started on insulin drip at this time. There is no history of fever, rigors. No headache, loss of consciousness, seizures. PAST MEDICAL HISTORY: History of asthma, diabetes, DJD, history of anxiety, bipolar depression. MEDICATIONS: Prior to admission include home medications are reviewed and include: 1. Zantac 150 mg p.o. b.i.d. 2. Ditropan XL 5 mg p.o. daily. 3. Dulera 100 mcg 1 puff b.i.d. 4. Neurontin 1200 mg q.h.s. 5. Ventolin HFA 2 puffs q.6h. 6. Apidra 10 units a.c. t.i.d. 7. Lantus 30 units subcu q.h.s. ALLERGIES: LATEX. FAMILY HISTORY: History of hyperlipidemia, hypertension, and COPD in the family. SOCIAL HISTORY: History of current smoking. History of THC. REVIEW OF SYSTEMS: ENT: No diminished hearing or vision. CARDIOVASCULAR: No angina. RESPIRATORY: No cough. GI: As mentioned. : No dysuria. NERVOUS SYSTEM: No numbness or weakness. ALLERGY/IMMUNOLOGY: No asthma. MUSCULOSKELETAL: As mentioned earlier. HEMATOLOGY/ONCOLOGY: No history of anemia. ENDOCRINE: Diabetes type 2. CONSTITUTIONAL: As mentioned earlier. DERMATOLOGY: Negative. RHEUMATOLOGY: Negative. PSYCHIATRY: As mentioned earlier. PHYSICAL EXAMINATION: Alert and oriented x3. Pulse is 117, blood pressure 162/76, respiration 18, temperature 99.3, pulse ox 97% on room air. HEENT: Conjunctivae normal. Oral mucosa moist. NECK: No jugular venous distention. No carotid bruit. No lymph node enlargement. CARDIOVASCULAR: S1, S2. RESPIRATORY: Breath sounds diminished in the bases. A few scattered rhonchi and crackles. ABDOMEN: Soft. Mild diffuse tenderness. No guarding, no rigidity. No mass. No hepatosplenomegaly. LEGS: No edema, no swelling. NERVOUS SYSTEM: Higher functions as mentioned. Moves all 4 limbs. No focal motor deficits. Sensory abnormalities. SKIN: No ulcer, rash, bleeding. LYMPHATIC: No lymphadenopathy in the neck, axillae, groin. JOINTS: No active deforming arthropathy. ASSESSMENT: 1. Diabetes mellitus type 2 uncontrolled with acute diabetic ketoacidosis. 2. Abdominal pain, possible acute gastritis. 3. Asthma. 4. Degenerative joint disease. 5. History of diabetic gastroparesis. 6. Diabetic neuropathy. 7. History of degenerative joint disease. 8. History of MRSA. 9. Anxiety, bipolar, depression. 10.History of nicotine dependence. 11.History of THC. RECOMMENDATIONS AND DISCUSSION: This 27-year-old gentleman who presented with multiple complex medical issues, we will monitor the patient closely. Continue the current management and symptomatic treatment. Will follow DKA protocol, insulin drip. Sugars are improved and the anion gap closes, the protocol may be followed. Otherwise, DVT prophylaxis. Symptomatic treatment for the vomiting and clear liquids currently. Guarded prognosis because of multiple complex medical issues. Further recommendations to follow. Copy of dictation forwarded to Dr. Stewart who is the primary physician. MMODL / IJN: [id number] /
[2018-02-14 17:13] LABS: Glucose,Whole Blood 140 mg/dL (75-99)
[2018-02-14] MEDS: NICOTINE 14MG/24HR PATCH TRANSDERM SCH (17:19)
[2018-02-14 17:47] LABS: Anion Gap 8 mmol/L; Blood Urea Nitrogen 26 mg/dL (9-20); Carbon Dioxide 24 mmol/L (22-30); Chloride 111 mmol/L (98-107); Glucose 127 mg/dL (74-99); Phosphorus 2.8 mg/dL (2.5-4.5); Sodium 143 mmol/L (137-145)
[2018-02-14 17:52] LABS: Glucose,Whole Blood 144 mg/dL (75-99)
[2018-02-14 17:52] LABS: Potassium 4.9 mmol/L (3.5-5.1)
[2018-02-14 18:59] LABS: Glucose,Whole Blood 179 mg/dL (75-99)
[2018-02-14] MEDS ORDERED: INSULIN DETEMIR 100 UNIT/ML 10 ML VIAL SQ STA (19:06)
[2018-02-14 19:43] LABS: Glucose,Whole Blood 164 mg/dL (75-99)
[2018-02-14 20:29] LABS: Glucose,Whole Blood 161 mg/dL (75-99)
[2018-02-14] MEDS: HEPARIN SODIUM,PORCINE 5,000 UNIT/ML 1 ML VIAL SQ SCH (21:16)
[2018-02-14] MEDS: PANTOPRAZOLE 40 MG/10 ML VIAL IVP SCH (21:16)
[2018-02-14] MEDS: GABAPENTIN 100 MG CAP PO SCH (21:16)
[2018-02-14] MEDS: SYMBICORT 80-4.5 MCG INHALER INHALATION SCH (21:37)
[2018-02-15] MEDS: INSULIN ASPART 100 UNIT/ML 1 ML 10 ML VIAL SQ SCH ×8 (00:05→21:38)
[2018-02-15 00:16] LABS: Glucose,Whole Blood 102 mg/dL (75-99)
[2018-02-15] MEDS: SODIUM CHLORIDE 0.9% 1,000 ML IV SCH ×4 (00:30→17:59)
[2018-02-15 02:26] LABS: Glucose,Whole Blood 79 mg/dL (75-99)
[2018-02-15 06:28] LABS: Glucose,Whole Blood 104 mg/dL (75-99)
[2018-02-15] MEDS: D5-0.45% NACL WITH KCL 20MEQ/L 1,000 ML IV SCH ×3 (06:33→15:28)
[2018-02-15] MEDS ORDERED: D5-0.45% NACL WITH KCL 20MEQ/L 1,000 ML IV SCH (06:45)
[2018-02-15 07:01] LABS: Basophils % (A) 0 %; Eosinophils % (A) 0 %; HCT 46.9 % (39.0-53.0); HGB 14.4 gm/dL (13.0-17.5); Lymphocytes # (A) 2.5 k/uL (1.0-4.8); Lymphocytes % (A) 13 %; MCH 29.3 pg (25.0-35.0); MCHC 30.7 g/dL (31.0-37.0); MCV 95.3 fL (80.0-100.0); Mean Platelet Volume 7.8; Monocytes # (A) 0.9 k/uL (0-1.0); Monocytes % (A) 5 %; Neutrophils % (A) 80 %; Platelet Count 301 k/uL (150-450); RBC 4.92 m/uL (4.30-5.90); RDW 13.9 % (11.5-15.5); WBC 18.7 k/uL (3.8-10.6)
[2018-02-15 07:14] LABS: Anion Gap 10 mmol/L; Blood Urea Nitrogen 19 mg/dL (9-20); Calcium 9.1 mg/dL (8.4-10.2); Carbon Dioxide 24 mmol/L (22-30); Chloride 104 mmol/L (98-107); Glucose 90 mg/dL (74-99); Potassium 4.2 mmol/L (3.5-5.1); Sodium 138 mmol/L (137-145)
[2018-02-15] MEDS: NICOTINE 14MG/24HR PATCH TRANSDERM SCH (08:14)
[2018-02-15] MEDS: OXYBUTYNIN XL 5 MG TAB.ER.24 PO SCH (08:31)
[2018-02-15] MEDS: PANTOPRAZOLE 40 MG/10 ML VIAL IVP SCH ×2 (08:31→21:39)
[2018-02-15] MEDS: HEPARIN SODIUM,PORCINE 5,000 UNIT/ML 1 ML VIAL SQ SCH ×2 (08:31→21:39)
[2018-02-15] MEDS: THIAMINE 100 MG TAB PO SCH (08:32)
[2018-02-15] MEDS: FOLIC ACID 1 MG TAB PO SCH (08:32)
[2018-02-15] MEDS: MULTIVITAMINS, THERA 1 EACH TAB PO SCH (08:32)
[2018-02-15] MEDS: SYMBICORT 80-4.5 MCG INHALER INHALATION SCH ×2 (09:04→21:35)
[2018-02-15 11:17] VITALS: BMI 17.7
[2018-02-15 12:24] LABS: Glucose,Whole Blood 208 mg/dL (75-99)
[2018-02-15 12:43] LABS: Hemoglobin A1C 10.1 % (4.0-6.0)
[2018-02-15 14:31] LABS: Appearance,Urine Clear (Clear); Bilirubin,Urine Negative (Negative); Blood,Urine Negative (Negative); Color,Urine Yellow; Glucose,Urine (UA) Negative (Negative); Ketones,Urine Negative (Negative); Leukocyte Esterase,Urine Negative (Negative); Nitrite,Urine Negative (Negative); Protein,Urine Negative (Negative); Specific Gravity,Urine 1.026 (1.001-1.035); Urobilinogen,Urine <2.0 mg/dL (<2.0)
[2018-02-15] MEDS ORDERED: HYDROmorphone 2 MG TAB PO PRN (15:48)
[2018-02-15 16:55] LABS: Glucose,Whole Blood 106 mg/dL (75-99)
[2018-02-15] MEDS ORDERED: ONDANSETRON 4 MG/2 ML VIAL IVP PRN (19:46)
[2018-02-15 20:17] LABS: Glucose,Whole Blood 191 mg/dL (75-99)
[2018-02-15] MEDS ORDERED: INSULIN DETEMIR 100 UNIT/ML 10 ML VIAL SQ SCH (21:00)
[2018-02-15 21:28] VITALS: RESP 16
[2018-02-15] MEDS: GABAPENTIN 100 MG CAP PO SCH (21:39)
[2018-02-15] MEDS ORDERED: LEVOFLOXACIN 500MG-D5W PMX 500 MG in DEXTROSE/WATER 1 100ML.BAG IVPB SCH (22:00)
[2018-02-16 06:16] VITALS: BP 140/91; PULSE 74; TEMP 98.1
[2018-02-16 07:16] LABS: Glucose,Whole Blood 67 mg/dL (75-99)
[2018-02-16 07:30] LABS: Glucose,Whole Blood 84 mg/dL (75-99)
[2018-02-16] MEDS: INSULIN ASPART 100 UNIT/ML 1 ML 10 ML VIAL SQ SCH ×4 (07:33→13:40)
[2018-02-16] MEDS: SYMBICORT 80-4.5 MCG INHALER INHALATION SCH (07:45)
[2018-02-16 08:58] LABS: Basophils % (A) 0 %; Eosinophils % (A) 0 %; HCT 48.1 % (39.0-53.0); HGB 15.5 gm/dL (13.0-17.5); Lymphocytes # (A) 1.9 k/uL (1.0-4.8); Lymphocytes % (A) 24 %; MCH 29.9 pg (25.0-35.0); MCHC 32.2 g/dL (31.0-37.0); Mean Platelet Volume 7.2; Monocytes # (A) 0.6 k/uL (0-1.0); Monocytes % (A) 7 %; Neutrophils # (A) 5.2 k/uL (1.3-7.7); Neutrophils % (A) 65 %; Platelet Count 275 k/uL (150-450); RBC 5.18 m/uL (4.30-5.90); RDW 13.4 % (11.5-15.5)
[2018-02-16] MEDS: NICOTINE 14MG/24HR PATCH TRANSDERM SCH (09:08)
[2018-02-16] MEDS: HEPARIN SODIUM,PORCINE 5,000 UNIT/ML 1 ML VIAL SQ SCH (09:08)
[2018-02-16] MEDS: PANTOPRAZOLE 40 MG/10 ML VIAL IVP SCH (09:08)
[2018-02-16 09:09] LABS: Anion Gap 8 mmol/L; Blood Urea Nitrogen 13 mg/dL (9-20); Calcium 9.2 mg/dL (8.4-10.2); Carbon Dioxide 29 mmol/L (22-30); Chloride 100 mmol/L (98-107); Glucose 89 mg/dL (74-99); Potassium 4.1 mmol/L (3.5-5.1); Sodium 137 mmol/L (137-145)
[2018-02-16] MEDS: OXYBUTYNIN XL 5 MG TAB.ER.24 PO SCH (09:09)
[2018-02-16] MEDS: SODIUM CHLORIDE 0.9% 1,000 ML IV SCH (10:51)
--- NOTE | 2018-02-16 11:03 | CDI ---
Last Revision, May 2017 Documentation Clarification Form Date: 02/16/2018 10:55:17 AM From: Kelsey Dao RN, CCDS Admit Date: 02/14/2018 10:19:00 AM Patient Name: Stef Sales Visit Number: [id number] ATTENTION: The Clinical Documentation Specialists (CDI) and [facility] Coding Staff appreciate your assistance in clarifying documentation. Please respond to the clarification below the line at the bottom and electronically sign. The CDI & [facility] Coding staff will review the response and follow-up if needed. Please note: Queries are made part of the Legal Health Record. If you have any questions, please contact the author of this message via ITS. Wayne Orozco MD History/Risk Factors: DM2 w/ complications of gastroparesisis, DKA, neuropathy Asthma, DJD, anxiety, Bipolar, Depression, nicotine dependence Clinical Indicators: Patients weight is 46.5 kg Patients height is 70 in Calculated BMI is 14.7 Skin care/assessment: wnl Pt appears underweight per dietary assessment Treatments: Daily weights: per unit protocol Nutritional Education: pt refused Dietary Consult completed 02/15/18 1100 Dm diet ordered w/o supplements In order to capture the severity of condition associated with patient BMI of 14.7, a clinical diagnoses needs to be documented by the physician. Please clarify: Emaciated Cachexia Underweight Protein Calorie Malnutrition (specify severity- Mild, Moderate, Severe and underlying cause if known) Other Unable to determine Please continue to document in your progress notes and discharge summary in order to capture severity of illness and risk of mortality. Include clinical findings that support your diagnosis. Protein Calorie Malnutrition Moderate MTDD
[2018-02-16 11:52] LABS: Glucose,Whole Blood 114 mg/dL (75-99)
[2018-02-16] MEDS: MULTIVITAMINS, THERA 1 EACH TAB PO SCH (13:39)
[2018-02-16] MEDS: FOLIC ACID 1 MG TAB PO SCH (13:40)
[2018-02-16] MEDS: THIAMINE 100 MG TAB PO SCH (13:40)
--- NOTE | 2018-02-16 19:44 | CONS ---
CONSULTATION DATE OF SERVICE: 02/16/2018. REASON FOR CONSULTATION: Positive blood cultures and discharge antibiotic recommendations. HISTORY OF PRESENT ILLNESS: The patient is a 27-year-old male with a past medical history significant for diabetes mellitus, presenting to the ER at [facility] on 02/14/2018 with chief complaint of nausea, vomiting and abdominal pain. The patient did mention that his sugar has been running high as high as 900. The patient currently complaining of pain mostly in the epigastric area, more of a burning pain, intensity about 5-6 out of 10 and no radiation. The patient denies any high-grade fever, rigors and chills. No diarrhea. Denies having any swelling or redness of the joints or the legs. With these symptoms, the patient has been evaluated by the ER physician. On arrival to the ER, the patient has been afebrile. Did have a low-grade fever of 100.2. Subsequently the patient did have a elevated white count of 19.8. White count normalized to 8.0 today. The patient blood sugar has been in the 400s and the patient has been treated for DKA. His urine was negative x2. Blood cultures obtained in the ER, came back to be positive. One bottle with gram-positive bacilli that prompted this infectious disease consultation. The patient has been treated with oral Levaquin. I was asked to see the patient today for further recommendations regarding antibiotic therapy and for this positive blood culture. The patient said he is feeling much better and is anxious to go home and states he would like to go home today and does not want to stay for the final position of the blood culture. REVIEW OF SYSTEMS: CONSTITUTIONAL: Positive for weakness. No high-grade fever. EYES: No complaint. ENT no complaint. RESPIRATORY: No complaint. CARDIOVASCULAR no complaint. GENITOURINARY no complaint. GASTROINTESTINAL: As per HPI. MUSCULOSKELETAL no complaint. INTEGUMENTARY: No complaint. PSYCHOLOGICAL no complaint. ENDOCRINE no complaint. NEUROLOGIC no complaint. PAST MEDICAL HISTORY: Insulin-dependent diabetes mellitus, asthma, previous history of MRSA infection involving the patient's cellulitis, anxiety, bipolar disorder, depression. PAST SURGICAL HISTORY: He did have eustachian tube and ortho surgery on the hand. SOCIAL HISTORY: Positive for smoking, 6 pack a day, also smoking marijuana alcohol. FAMILY HISTORY: Father with history of hypertension, hyperlipidemia. Mother with history of COPD. ALLERGIES: ALLERGIES TO LATEX. MEDICATIONS: Currently include the patient is on Restoril, vitamin B1, Protonix, Ditropan, Zofran, nicotine patch, Levaquin, Levemir, NovoLog, Dilaudid, heparin, Neurontin, Symbicort, Xanax, [place]. EXAMINATION: Blood pressure 140/91 with a pulse of 74, temperature 98.1. He is 98% on room air. General description is a middle age male lying in bed in no distress. No tachypnea or accessory muscles of respiration use. HEENT: Shows no pallor or scleral icterus. Oral mucosa membranes are moist. No pharyngeal erythema or thrush. NECK: Trachea central. No thyromegaly. LUNGS: Unlabored breathing. Clear to auscultation. No wheeze or crackles. HEART S1, S2. Regular rate and rhythm. ABDOMEN: Soft, no tenderness. No guarding or rigidity. EXTREMITIES: No edema of the feet. SKIN EXAMINATION: No rash or mass palpable. NEUROLOGIC: The patient is awake, alert and oriented times three. Mood and affect normal. LABS: Hemoglobin is 13.5, white count 8.0, elevated at 19, BUN of 13, creatinine 0.59. Urine has been negative. DIAGNOSTIC IMPRESSION AND PLAN: Patient with a positive blood culture with gram-positive bacilli. This patient admitted to the hospital with diabetic ketoacidosis with elevated white count more likely due to his DKA. Clinically no source of infection. Positive blood culture with gram-positive bacilli more likely indicating a skin contamination. PLAN: 1. No need for any further workup for the gram positive bacilli . The patient declined to stay further in the hospital for final of the same. 2. No need for any systemic antibiotic therapy on discharge. This was communicated to the admitting team. MMODL / IJN: [id number] /
[2018-02-16] MEDS ORDERED: LEVOFLOXACIN 500 MG TAB PO SCH (21:00)
--- NOTE | 2018-02-16 21:29 | DS ---
DISCHARGE SUMMARY DATE OF SERVICE: 02/16/2018. FINAL DIAGNOSES: 1. Diabetes type 2, uncontrolled with early diabetic ketoacidosis. 2. Abdominal pain with possible acute gastritis. 3. Gram-positive bacilli from the blood culture. 4. Abdominal pain, possible acute gastritis. 5. History of asthma. 6. Degenerative joint disease. 7. History of diabetic gastroparesis. 8. Diabetic neuropathy. 9. History of degenerative joint disease. 10.History of MRSA. 11.Bipolar depression. 12.History of nicotine dependence. 13.History of THC. DISCHARGE DISPOSITION: The patient will be discharged in stable condition with guarded prognosis. The patient is extremely keen on going home. Discharge cleared by Infectious disease. HISTORY OF PRESENT ILLNESS: This 27-year-old gentleman with a past medical history of multiple medical problems admitted to the hospital with diabetes uncontrolled and associated diabetic ketoacidosis. Treated with insulin drip. The patient improved significantly. Patient also had abdominal pain and gastritis. Also treated symptomatically and improved significantly. However, the blood culture 1 out of 2 showed gram-positive positive bacilli. Final ID is pending at this time. We consulted Dr. Michaels and recommended outpatient followup. On exam, vitals are stable. Cardiovascular System: S1, S2. Abdomen soft. Nervous system: No focal deficits. DISCHARGE ADVICE AND MEDICATIONS: 1. Discharge diet is cardiac. 2. Activity limited until follow up. 3. Follow up with Dr. Stewart in 2 to 3 days. 4. Follow with Dr. Michaels as advised. 5. Medications will be: 6. Albuterol 2 puffs q.i.d. p.r.n. 7. Neurontin 200 mg q.h.s. 8. Lantus 31 units subcu q.h.s. 9. Dulera 1 puff b.i.d. 10.Ditropan XL 5 mg p.o. daily. 11.Folic acid 1 mg daily. 12.Apidra 10 units a.c. t.i.d. 13.Multivitamins 1 p.o. daily. 14.Habitrol 14 daily. 15.Zofran 4 mg q.6h p.r.n. 16.Protonix 40 mg p.o. daily. 17.Thiamine 100 mg p.o. daily. Once again, the patient is being discharged in stable condition with guarded prognosis. MMODL / IJN: [id number] /
--- NOTE | 2018-02-17 15:33 | P.PN ---
Subjective Progress Note Date: 02/15/18 Progress notel being dictated for Dr. Moe. Interval history: This a 27-year-old gentleman admitted with early DKA, abdominal pain, possible acute gastritis, and multiple other medical issues. Blood sugars now controlled status post DKA protocol/insulin drip. Complaining of abdominal pain. One of 2 blood cultures positive for gram-positive bacilli. T-max 100.2. WBC 18.7. Denies chest pain, palpitations or shortness of breath. Objective - Vital Signs Vital signs: Vital Signs Temp 98.7 F 02/15/18 15:40 Pulse 75 02/15/18 15:47 Resp 18 02/15/18 15:47 BP 135/75 02/15/18 15:40 Pulse Ox 97 02/15/18 15:40 Intake & Output 02/15/18 02/15/18 02/16/18 06:59 18:59 06:59 Intake Total 300 Output Total 1850 Balance -1550 Weight 56.2 kg 56.2 kg Intake: Oral 300 Output: Urine 1850 Other: Voiding Method Toilet Toilet # Voids 1 - Exam PHYSICAL EXAM: VITAL SIGNS: [As above] GENERAL: Lying in bed, no acute distress HEENT: Conjunctivae normal. eyes normal. Oral mucosa moist NECK: No JVD. No thyroid enlargement. No LNs CARDIOVASCULAR: S1, S2 muffled. No murmur RESPIRATION: Breath sounds diminished in the bases. No rhonchi or crackles. ABDOMEN: Soft, nontender . No guarding. no masses palpable. Bowel sounds heard. LEGS: No edema. no swelling PSYCHIATRY: Alert and oriented -3, mood and affect normal. NERVOUS SYSTEM: Cranial N 2-12 grossly normal. Moves all 4 limbs. Diffuse weakness No focal deficits. Skin: no ulcer no rash Joints: No active swelling. No inflammation. Lymphatic system. No LN neck axilla or groin. - Labs CBC & Chem 7: 02/16/18 08:13 02/16/18 08:13 Labs: Abnormal Lab Results - Last 24 Hours (Table) 02/14/18 02/14/18 02/15/18 Range/Units 19:31 20:26 00:02 WBC (3.8-10.6) k/uL MCHC (31.0-37.0) g/dL Neutrophils # (1.3-7.7) k/uL Creatinine (0.66-1.25) mg/dL POC Glucose (mg/dL) 164 H 161 H 102 H (75-99) mg/dL Hemoglobin A1c (4.0-6.0) % 02/15/18 02/15/18 02/15/18 Range/Units 06:02 06:02 06:02 WBC 18.7 H (3.8-10.6) k/uL MCHC 30.7 L (31.0-37.0) g/dL Neutrophils # 15.0 H (1.3-7.7) k/uL Creatinine 0.55 L (0.66-1.25) mg/dL POC Glucose (mg/dL) (75-99) mg/dL Hemoglobin A1c 10.1 H (4.0-6.0) % 02/15/18 02/15/18 02/15/18 Range/Units 06:26 11:55 16:40 WBC (3.8-10.6) k/uL MCHC (31.0-37.0) g/dL Neutrophils # (1.3-7.7) k/uL Creatinine (0.66-1.25) mg/dL POC Glucose (mg/dL) 104 H 208 H 106 H (75-99) mg/dL Hemoglobin A1c (4.0-6.0) % Microbiology - Last 24 Hours (Table) 02/14/18 09:04 Blood Culture - Preliminary Blood No Growth after 24 hours 02/15/18 08:16 Urine Culture - Preliminary Urine,Clean Catch Assessment and Plan Assessment: 1. Diabetes type 2, uncontrolled with early DKA 2. Abdominal pain, possible acute gastritis 3. Gram-positive bacilli from blood culture 4. History of diabetic gastroparesis 5. Bipolar depression 6. History of THC Plan: Continue current medication regime ,monitoring and symptomatic treatment. Maintain IV antibiotics. Continue monitoring cultures closely. Infectious disease consulted for potential bacteremia. Further recommendations to follow. The impression and plan of care has been dictated as directed. : I performed a history and examination of this patient, discussed the same with the dictator. I agree with the dictator's note ,documented as a scribe. Any additional findings or plans will be noted.
== END 2018-02-16 13:50 | disposition home or self-care (01) | DRG 638 ==
LOC: EC 08:36 → 6SEL 10:19 → 5MS5E 02-15 18:20
PROVIDERS: ADMIT Hospitalist; ATTEND Hospitalist
DX: E11.10 Type 2 diabetes mellitus with ketoacidosis without coma (principal); E44.0 Moderate protein-calorie malnutrition; Z68.1 Body mass index [BMI] 19.9 or less, adult; E11.43 Type 2 diabetes mellitus with diabetic autonomic (poly)neuropathy; F12.90 Cannabis use, unspecified, uncomplicated; F17.200 Nicotine dependence, unspecified, uncomplicated; F31.9 Bipolar disorder, unspecified; F41.9 Anxiety disorder, unspecified; J45.909 Unspecified asthma, uncomplicated; K29.00 Acute gastritis without bleeding; K31.84 Gastroparesis; M19.90 Unspecified osteoarthritis, unspecified site; Z79.4 Long term (current) use of insulin; Z82.49 Family history of ischemic heart disease and other diseases of the circulatory system; Z82.5 Family history of asthma and other chronic lower respiratory diseases; Z86.14 Personal history of Methicillin resistant Staphylococcus aureus infection; Z91.040 Latex allergy status; Z79.899 Other long term (current) drug therapy
CPT/HCPCS: 36415; 80048; 80051; 80053; 81003; 82009; 82150; 82565; 82947; 83036; 83690; 84100; 84520; 85025; 87040; 87086; 94640; 96361; 96374; 96375; 99284

== ENCOUNTER 2018-03-12 17:55 | Emergency (ER) | payer OTHER ==
[2018-03-12] MEDS ORDERED: SODIUM CHLORIDE 0.9% 1,000 ML IV STA ×4 (18:06→19:57)
[2018-03-12 18:26] LABS: Basophils # (A) 0.1 k/uL (0-0.2); Basophils % (A) 0 %; Eosinophils # (A) 0.1 k/uL (0-0.7); Eosinophils % (A) 1 %; HCT 51.1 % (39.0-53.0); HGB 17.8 gm/dL (13.0-17.5); Lymphocytes # (A) 3.5 k/uL (1.0-4.8); Lymphocytes % (A) 22 %; MCH 31.1 pg (25.0-35.0); MCHC 34.8 g/dL (31.0-37.0); MCV 89.5 fL (80.0-100.0); Mean Platelet Volume 7.4; Monocytes % (A) 6 %; Neutrophils # (A) 10.7 k/uL (1.3-7.7); Neutrophils % (A) 68 %; Platelet Count 325 k/uL (150-450); RBC 5.71 m/uL (4.30-5.90); RDW 13.6 % (11.5-15.5); WBC 15.8 k/uL (3.8-10.6)
[2018-03-12 18:30] LABS: VBG PH 7.45 (7.31-7.41)
[2018-03-12 18:43] LABS: ALT 28 U/L (21-72); AST 52 U/L (17-59); Albumin 4.9 g/dL (3.5-5.0); Alkaline Phosphatase 138 U/L (38-126); Anion Gap 15 mmol/L; Blood Urea Nitrogen 27 mg/dL (9-20); Calcium 9.9 mg/dL (8.4-10.2); Carbon Dioxide 28 mmol/L (22-30); Chloride 93 mmol/L (98-107); Magnesium 2.4 mg/dL (1.6-2.3); Phosphorus 3.1 mg/dL (2.5-4.5); Sodium 136 mmol/L (137-145); Total Bilirubin 1.8 mg/dL (0.2-1.3); Total Protein 9.1 g/dL (6.3-8.2)
[2018-03-12 18:49] LABS: Potassium 3.9 mmol/L (3.5-5.1)
[2018-03-12 18:51] LABS: D-Dimer 0.23 mg/L FEU (<0.60); Partial Thromboplastin Time 22.5 sec (22.0-30.0); Prothrombin Time 10.2 sec (9.0-12.0)
[2018-03-12 18:59] LABS: Glucose 49 mg/dL (74-99)
[2018-03-12] MEDS ORDERED: DEXTROSE 50%-WATER 50 ML SYRINGE IVP STA (19:02)
[2018-03-12 19:05] LABS: Creatine Kinase MB 0.3 ng/mL (0.0-2.4); Troponin I 0.013 ng/mL (0.000-0.034)
--- NOTE | 2018-03-12 19:11 | ED ---
Dizziness HPI - General Chief Complaint: Dizziness Stated Complaint: Dizzy Time Seen by Provider: 03/12/18 18:06 Source: patient, RN notes reviewed, old records reviewed Mode of arrival: ambulatory Limitations: no limitations - History of Present Illness Initial Comments: This is a 27-year-old male the ER for evaluation of nausea vomiting. No diarrhea. 4 days of persistent nausea vomiting with no appetite. Patient is a type I diabetic. Denies any pain no fevers no cough or congestion recent travel history no known sick contacts. Patient taking all medications as prescribed no change in medications. MD Complaint: dizziness -: days(s) (4) Timing: gradual onset Description: sense of movement, nausea History of Same: No History of Trauma: No Severity: moderate (Nausea vomiting) Improves With: nothing Worsens With: other (Eating) Associated Symptoms: fever/chills, weakness - Related Data Home Medications Medication Instructions Recorded Confirmed Albuterol Inhaler [Ventolin Hfa 2 puff INHALATION RT-Q6H PRN 09/23/17 03/12/18 Inhaler] Gabapentin [Neurontin] 200 mg PO HS 09/23/17 03/12/18 Oxybutynin Chloride [Ditropan XL] 5 mg PO DAILY 09/23/17 03/12/18 Insulin Glargine [Lantus] 31 unit SQ HS 02/14/18 03/12/18 Mometasone/Formoterol [Dulera 100 1 puff INHALATION RT-BID 02/14/18 03/12/18 Mcg/5 Mcg Inhaler] Folic Acid 1 mg PO DAILY 03/12/18 03/12/18 Insulin Glulisine [Apidra] 12 unit SQ AC-TID 03/12/18 03/12/18 Thiamine [Vitamin B-1] 100 mg PO DAILY 03/12/18 03/12/18 Previous Rx's Medication Instructions Recorded Pantoprazole Sodium [Protonix] 40 mg PO DAILY #30 tablet. 02/15/18 Allergies Allergy/AdvReac Type Severity Reaction Status Date / Time latex Allergy Rash/Hives Verified 03/12/18 18:21 Review of Systems ROS Statement: Those systems with pertinent positive or pertinent negative responses have been documented in the HPI. ROS Other: All systems not noted in ROS Statement are negative. Past Medical History Past Medical History: Asthma, Diabetes Mellitus, Osteoarthritis (OA) Additional Past Medical History / Comment(s): IDDM type I, diabetic gastroparesis, neuropathy bilateral hands/fingers, migraines, arthrtitis fingers /knees, past R hand and L femur fractures. History of Any Multi-Drug Resistant Organisms: MRSA Date of last positivie culture/infection: 04/26/2014 MDRO Source:: Face Past Surgical History: Ear Surgery, Orthopedic Surgery Additional Past Surgical History / Comment(s): R hand surgery d/t fracture- pinned and pins since removed, L leg femur fracture with pin that eventually was removed, bilateral myringotomy with tubes/ear drum repairs. Past Anesthesia/Blood Transfusion Reactions: No Reported Reaction Past Psychological History: Anxiety, Bipolar, Depression Smoking Status: Current every day smoker Past Alcohol Use History: Occasional Past Drug Use History: Marijuana - Past Family History Father Family Medical History: Hyperlipidemia, Hypertension Mother Family Medical History: COPD Additional Family Medical History / Comment(s): home O2, Brother(s) Family Medical History: No Reported History General Exam Limitations: no limitations General appearance: alert, in no apparent distress Head exam: Present: atraumatic, normocephalic, normal inspection Eye exam: Present: normal appearance, PERRL, EOMI. Absent: scleral icterus, conjunctival injection, periorbital swelling ENT exam: Present: normal exam, mucous membranes moist Neck exam: Present: normal inspection. Absent: tenderness, meningismus, lymphadenopathy Respiratory exam: Present: normal lung sounds bilaterally. Absent: respiratory distress, wheezes, rales, rhonchi, stridor Cardiovascular Exam: Present: regular rate, normal rhythm, normal heart sounds. Absent: systolic murmur, diastolic murmur, rubs, gallop, clicks GI/Abdominal exam: Present: soft, normal bowel sounds. Absent: distended, tenderness, guarding, rebound, rigid Extremities exam: Present: normal inspection, full ROM, normal capillary refill. Absent: tenderness, pedal edema, joint swelling, calf tenderness Back exam: Present: normal inspection Neurological exam: Present: alert, oriented X3, CN II-XII intact Psychiatric exam: Present: normal affect, normal mood Skin exam: Present: warm, dry, intact, normal color. Absent: rash Course Vital Signs 03/12/18 03/12/18 03/12/18 18:00 18:19 19:06 Temperature 98.8 F Pulse Rate 152 H 99 84 Respiratory 18 18 18 Rate Blood Pressure 137/100 144/66 O2 Sat by Pulse 97 99 94 L Oximetry 03/12/18 20:03 Temperature 98.7 F Pulse Rate 106 H Respiratory 18 Rate Blood Pressure 134/76 O2 Sat by Pulse 96 Oximetry - Reevaluation(s) Reevaluation #1: 03/12/18 20:54 Medical record is reviewed Reevaluation #2: 03/12/18 20:54 Patient feeling much better with symptomatic management, will discharge on Zofran EKG Findings - EKG Comments: EKG Findings:: EKG shows sinus rhythm rate of 100, SC 16, QRS 92, QTC 583 Medical Decision Making - Medical Decision Making 27 male the ER for evasive nausea vomiting. Patient symptoms much improved currently rehydrated we'll place on Zofran discharged home - Lab Data Result diagrams: 03/12/18 18:10 03/12/18 18:10 Lab Results 03/12/18 03/12/18 03/12/18 Range/Units 18:10 18:10 18:10 WBC (3.8-10.6) k/uL RBC (4.30-5.90) m/uL Hgb (13.0-17.5) gm/dL Hct (39.0-53.0) % MCV (80.0-100.0) fL MCH (25.0-35.0) pg MCHC (31.0-37.0) g/dL RDW (11.5-15.5) % Plt Count (150-450) k/uL Neutrophils % % Lymphocytes % % Monocytes % % Eosinophils % % Basophils % % Neutrophils # (1.3-7.7) k/uL Lymphocytes # (1.0-4.8) k/uL Monocytes # (0-1.0) k/uL Eosinophils # (0-0.7) k/uL Basophils # (0-0.2) k/uL PT (9.0-12.0) sec INR (<1.2) APTT (22.0-30.0) sec D-Dimer (<0.60) mg/L FEU VBG pH 7.45 H (7.31-7.41) VBG pCO2 46 (37-51) mmHg VBG HCO3 31 H (24-28) mmol/L Sodium 136 L (137-145) mmol/L Potassium 3.9 (3.5-5.1) mmol/L Chloride 93 L (98-107) mmol/L Carbon Dioxide 28 (22-30) mmol/L Anion Gap 15 mmol/L BUN 27 H (9-20) mg/dL Creatinine 0.68 (0.66-1.25) mg/dL Est GFR (CKD-EPI)AfAm >90 (>60 ml/min/1.73 sqM) Est GFR (CKD-EPI)NonAf >90 (>60 ml/min/1.73 sqM) Glucose 49 L* (74-99) mg/dL POC Glucose (mg/dL) (75-99) mg/dL POC Glu Associate Sales Representative ID Plasma Lactic Acid Neymar (0.7-2.0) mmol/L Calcium 9.9 (8.4-10.2) mg/dL Phosphorus 3.1 (2.5-4.5) mg/dL Magnesium 2.4 H (1.6-2.3) mg/dL Total Bilirubin 1.8 H (0.2-1.3) mg/dL AST 52 (17-59) U/L ALT 28 (21-72) U/L Alkaline Phosphatase 138 H (38-126) U/L Total Creatine Kinase 79 (55-170) U/L CK-MB (CK-2) 0.3 (0.0-2.4) ng/mL CK-MB (CK-2) Rel Index 0.4 Troponin I 0.013 (0.000-0.034) ng/mL Total Protein 9.1 H (6.3-8.2) g/dL Albumin 4.9 (3.5-5.0) g/dL TSH 1.420 (0.465-4.680) mIU/L Acetone, Qual Negative (Negative) 03/12/18 03/12/18 03/12/18 Range/Units 18:10 18:10 18:10 WBC 15.8 H (3.8-10.6) k/uL RBC 5.71 (4.30-5.90) m/uL Hgb 17.8 H (13.0-17.5) gm/dL Hct 51.1 (39.0-53.0) % MCV 89.5 (80.0-100.0) fL MCH 31.1 (25.0-35.0) pg MCHC 34.8 (31.0-37.0) g/dL RDW 13.6 (11.5-15.5) % Plt Count 325 (150-450) k/uL Neutrophils % 68 % Lymphocytes % 22 % Monocytes % 6 % Eosinophils % 1 % Basophils % 0 % Neutrophils # 10.7 H (1.3-7.7) k/uL Lymphocytes # 3.5 (1.0-4.8) k/uL Monocytes # 1.0 (0-1.0) k/uL Eosinophils # 0.1 (0-0.7) k/uL Basophils # 0.1 (0-0.2) k/uL PT 10.2 (9.0-12.0) sec INR 1.0 (<1.2) APTT 22.5 (22.0-30.0) sec D-Dimer 0.23 (<0.60) mg/L FEU VBG pH (7.31-7.41) VBG pCO2 (37-51) mmHg VBG HCO3 (24-28) mmol/L Sodium (137-145) mmol/L Potassium (3.5-5.1) mmol/L Chloride (98-107) mmol/L Carbon Dioxide (22-30) mmol/L Anion Gap mmol/L BUN (9-20) mg/dL Creatinine (0.66-1.25) mg/dL Est GFR (CKD-EPI)AfAm (>60 ml/min/1.73 sqM) Est GFR (CKD-EPI)NonAf (>60 ml/min/1.73 sqM) Glucose (74-99) mg/dL POC Glucose (mg/dL) (75-99) mg/dL POC Glu Associate Sales Representative ID Plasma Lactic Acid Neymar 1.8 (0.7-2.0) mmol/L Calcium (8.4-10.2) mg/dL Phosphorus (2.5-4.5) mg/dL Magnesium (1.6-2.3) mg/dL Total Bilirubin (0.2-1.3) mg/dL AST (17-59) U/L ALT (21-72) U/L Alkaline Phosphatase (38-126) U/L Total Creatine Kinase (55-170) U/L CK-MB (CK-2) (0.0-2.4) ng/mL CK-MB (CK-2) Rel Index Troponin I (0.000-0.034) ng/mL Total Protein (6.3-8.2) g/dL Albumin (3.5-5.0) g/dL TSH (0.465-4.680) mIU/L Acetone, Qual (Negative) 03/12/18 Range/Units 19:26 WBC (3.8-10.6) k/uL RBC (4.30-5.90) m/uL Hgb (13.0-17.5) gm/dL Hct (39.0-53.0) % MCV (80.0-100.0) fL MCH (25.0-35.0) pg MCHC (31.0-37.0) g/dL RDW (11.5-15.5) % Plt Count (150-450) k/uL Neutrophils % % Lymphocytes % % Monocytes % % Eosinophils % % Basophils % % Neutrophils # (1.3-7.7) k/uL Lymphocytes # (1.0-4.8) k/uL Monocytes # (0-1.0) k/uL Eosinophils # (0-0.7) k/uL Basophils # (0-0.2) k/uL PT (9.0-12.0) sec INR (<1.2) APTT (22.0-30.0) sec D-Dimer (<0.60) mg/L FEU VBG pH (7.31-7.41) VBG pCO2 (37-51) mmHg VBG HCO3 (24-28) mmol/L Sodium (137-145) mmol/L Potassium (3.5-5.1) mmol/L Chloride (98-107) mmol/L Carbon Dioxide (22-30) mmol/L Anion Gap mmol/L BUN (9-20) mg/dL Creatinine (0.66-1.25) mg/dL Est GFR (CKD-EPI)AfAm (>60 ml/min/1.73 sqM) Est GFR (CKD-EPI)NonAf (>60 ml/min/1.73 sqM) Glucose (74-99) mg/dL POC Glucose (mg/dL) 155 H (75-99) mg/dL POC Glu Associate Sales Representative David Hull Plasma Lactic Acid Neymar (0.7-2.0) mmol/L Calcium (8.4-10.2) mg/dL Phosphorus (2.5-4.5) mg/dL Magnesium (1.6-2.3) mg/dL Total Bilirubin (0.2-1.3) mg/dL AST (17-59) U/L ALT (21-72) U/L Alkaline Phosphatase (38-126) U/L Total Creatine Kinase (55-170) U/L CK-MB (CK-2) (0.0-2.4) ng/mL CK-MB (CK-2) Rel Index Troponin I (0.000-0.034) ng/mL Total Protein (6.3-8.2) g/dL Albumin (3.5-5.0) g/dL TSH (0.465-4.680) mIU/L Acetone, Qual (Negative) - Radiology Data Radiology results: report reviewed (X-rays negative for acute disease), image reviewed Disposition Clinical Impression: Dehydration, Intractable nausea and vomiting Disposition: HOME SELF-CARE Condition: Good Instructions: Dizziness (ED) Is patient prescribed a controlled substance at d/c from ED?: No Referrals: None,Stated [Primary Care Provider] - 1-2 days
--- NOTE | 2018-03-12 19:15 | XR ---
EXAMINATION TYPE: XR chest 2V DATE OF EXAM: 03/12/2018 COMPARISON: 07/29/2017 HISTORY: Dizziness and weakness TECHNIQUE: Frontal and lateral views of the chest are obtained. FINDINGS: Heart and mediastinum are normal. Lungs are clear. Diaphragm is normal. Bony thorax appear s normal. There are chest leads. IMPRESSION: Normal chest. No change.
[2018-03-12] MEDS ORDERED: PANTOPRAZOLE 40 MG/10 ML VIAL IVP STA (19:21)
[2018-03-12] MEDS ORDERED: ONDANSETRON 4 MG/2 ML VIAL IVP STA (19:21)
[2018-03-12 19:29] LABS: Glucose,Whole Blood 155 mg/dL (75-99)
[2018-03-12] MEDS ORDERED: KETOROLAC 30 MG/ML 1 ML VIAL IVP STA (19:41)
[2018-03-12 21:05] VITALS: BP 132/91; PULSE 84; RESP 16; TEMP 99
[2018-03-12 21:18] LABS: Appearance,Urine Clear (Clear); Bilirubin,Urine 1+ (Negative); Blood,Urine Negative (Negative); Color,Urine Yellow; Glucose,Urine (UA) 3+ (Negative); Leukocyte Esterase,Urine Negative (Negative); Mucus,Urine Rare /hpf; Nitrite,Urine Negative (Negative); PH, Urine 6.5 (5.0-8.0); Protein,Urine 1+ (Negative); RBC,Urine 1 /hpf (0-5); Specific Gravity,Urine 1.024 (1.001-1.035); WBC,Urine 1 /hpf (0-5)
[2018-03-12 21:39] LABS: Ketones,Urine 3+ (Negative)
== END 2018-03-12 21:25 | disposition home or self-care (01) ==
LOC: EC 17:55
DX: E86.0 Dehydration (principal); R11.2 Nausea with vomiting, unspecified; J45.909 Unspecified asthma, uncomplicated; E10.40 Type 1 diabetes mellitus with diabetic neuropathy, unspecified; E10.43 Type 1 diabetes mellitus with diabetic autonomic (poly)neuropathy; K31.84 Gastroparesis; F17.200 Nicotine dependence, unspecified, uncomplicated; Z79.4 Long term (current) use of insulin; Z79.899 Other long term (current) drug therapy; Z91.040 Latex allergy status
CPT/HCPCS: 36415; 93005; 85379; 80053; 82550; 82553; 82803; 82009; 83605; 83735; 84100; 84443; 84484; 85025; 85610; 85730; 81001; 87086; 71046; 99284; 96374; 96375 ×3; 96361 ×3; J2405; J1885; C9113

== ENCOUNTER 2019-12-12 16:00 | Inpatient (IN) | payer OTHER ==
[2019-12-12] MEDS ORDERED: SODIUM CHLORIDE 0.9% 1,000 ML IV ONE ×3 (16:24→16:25)
[2019-12-12] MEDS: SODIUM CHLORIDE 0.9% 1,000 ML IV SCH ×3 (16:30→18:30)
[2019-12-12 16:37] LABS: Basophils # (A) 0.1 k/uL (0-0.2); Basophils % (A) 0 %; Eosinophils # (A) 0.1 k/uL (0-0.7); Eosinophils % (A) 0 %; HGB 13.6 gm/dL (13.0-17.5); Hypochromasia Marked; Lymphocytes % (A) 10 %; MCH 31.9 pg (25.0-35.0); MCHC 23.3 g/dL (31.0-37.0); Macrocytosis Marked; Mean Platelet Volume 9.9; Monocytes # (A) 1.6 k/uL (0-1.0); Monocytes % (A) 6 %; Neutrophils # (A) 24.1 k/uL (1.3-7.7); Neutrophils % (A) 83 %; Platelet Count 392 k/uL (150-450); RBC 4.27 m/uL (4.30-5.90); RDW 13.7 % (11.5-15.5); WBC 29.2 k/uL (3.8-10.6)
[2019-12-12 16:46] LABS: Partial Thromboplastin Time 31.8 sec (22.0-30.0); Prothrombin Time 10.7 sec (9.0-12.0)
[2019-12-12 16:48] LABS: ALT 53 U/L (4-49); AST 25 U/L (17-59); Acetaminophen <10.0 ug/mL; African American GFR (CKD) 17 (>60 ml/min/1.73 sqM); Albumin 3.6 g/dL (3.5-5.0); Alcohol <10 mg/dL; Alkaline Phosphatase 185 U/L (38-126); Blood Urea Nitrogen 74 mg/dL (9-20); Calcium 8.3 mg/dL (8.4-10.2); Chloride 76 mmol/L (98-107); Magnesium 4.5 mg/dL (1.6-2.3); Non-African American GFR(CKD) 15 (>60 ml/min/1.73 sqM); Salicylate 1.1 mg/dL; Sodium 121 mmol/L (137-145); Total Bilirubin 0.3 mg/dL (0.2-1.3); Total Protein 5.5 g/dL (6.3-8.2)
[2019-12-12 17:00] LABS: HCT 58.5 % (39.0-53.0)
[2019-12-12] MEDS ORDERED: SODIUM CHLORIDE 0.9% 3,000 ML IV SCH (17:00)
[2019-12-12 17:01] LABS: Appearance,Urine Clear (Clear); Bilirubin,Urine Negative (Negative); Blood,Urine Negative (Negative); Color,Urine Light Yellow; Glucose,Urine (UA) 4+ (Negative); Leukocyte Esterase,Urine Negative (Negative); Nitrite,Urine Negative (Negative); Protein,Urine Trace (Negative); Specific Gravity,Urine 1.022 (1.001-1.035); Urobilinogen,Urine <2.0 mg/dL (<2.0)
[2019-12-12 17:03] LABS: T4, Free (Free Thyroxine) 1.31 ng/dL (0.78-2.19)
[2019-12-12 17:10] LABS: ABG Base Excess -29.2 mmol/L; ABG HCO3 3 mmol/L (21-25); ABG Oxygen Saturation 88.5 % (94-97); ABG PCO2 15 mmHg (35-45); ABG PH 6.86 (7.35-7.45); ABG PO2 87 mmHg (83-108); Allen Test Performed? Yes
[2019-12-12] MEDS ORDERED: CALCIUM CHLORIDE 100 MG/ML 10 ML SYRINGE IVP STA (17:10)
[2019-12-12 17:15] LABS: Poikilocytosis (M) Present
[2019-12-12] MEDS: INSULIN REGULAR 100 UNIT in SODIUM CHLORIDE 0.9% 100 ML IV SCH (17:15)
[2019-12-12 17:16] LABS: Carbon Dioxide <5 mmol/L (22-30); Glucose >1875 mg/dL (74-99); Potassium 7.8 mmol/L (3.5-5.1)
[2019-12-12] MEDS ORDERED: SODIUM BICARB 8.4% 50 ML SYR (1 MEQ/ML) IV STA (17:16)
[2019-12-12 17:20] LABS: Amphetamine Screen,Urine Not Detected (NotDetected); Barbiturate Screen,Urine Not Detected (NotDetected); Benzodiazepines Screen,Urine Not Detected (NotDetected); Cocaine Screen,Urine Not Detected (NotDetected); Methadone Screen, Urine Not Detected (NotDetected); Opiate Screen,Urine Not Detected (NotDetected); Oxycodone Screen, Urine Not Detected (NotDetected); Phencyclidine Screen,Urine Not Detected (NotDetected); Tricyclic Antidepressant,Urine Not Detected (NotDetected); Urn Cannabinoid Scrn Detected (NotDetected)
[2019-12-12] MEDS: SODIUM BICARB 8.4% 50 ML SYR (1 MEQ/ML) IV STA ×2 (17:27→17:29)
[2019-12-12] MEDS ORDERED: INSULIN REGULAR BOLUS (FROM DRIP BAG) IV ONE (17:30)
[2019-12-12] MEDS ORDERED: DEXTROSE 5% IN WATER 1,000 ML with SODIUM BICARB (1 MEQ/ML) 150 ML IV SCH (17:30)
[2019-12-12 17:45] LABS: Ketones,Urine 2+ (Negative)
[2019-12-12] MEDS ORDERED: SODIUM BICARB 8.4% 50 ML SYR (1 MEQ/ML) IV ONE (17:45)
[2019-12-12] MEDS ORDERED: ALBUTEROL NEB (CONC) 2.5 MG/0.5 ML INHALATION ONE (18:30)
--- NOTE | 2019-12-12 18:36 | ED ---
General Adult HPI - General Chief complaint: Recheck/Abnormal Lab/Rx Stated complaint: Unresponsive Time Seen by Provider: 12/12/19 16:10 Source: EMS Mode of arrival: EMS Limitations: altered mental status - History of Present Illness Initial comments: Patient is a 29-year-old male past history of type 1 diabetes with insulin dependent who presents to the emergency department with altered mental status. Father called EMS after the patient was found unresponsive at home. He had last seen him normal around 8:30 at night. He does sleep in a basement. They report that he used methamphetamines a couple of days ago and has had nausea and vomiting. Unsure if they have taken his insulin. Patient arrives and is unable to provide history. HPI is completely because of this. EMS did perform an Accu-Chek on the patient and it read high. first blood pressures from them were noted to be hypotensive - Related Data Previous Rx's Medication Instructions Recorded Insulin Glargine,Hum.rec.anlog 50 units INJ DAILY #0 12/15/19 [Basaglar Kwikpen U-100] Insulin Lispro [Admelog] 10 units INJ TID-W/MEALS #0 12/15/19 Allergies Allergy/AdvReac Type Severity Reaction Status Date / Time latex Allergy Rash/Hives Verified 12/12/19 20:08 Review of Systems ROS Statement: Those systems with pertinent positive or pertinent negative responses have been documented in the HPI. ROS Other: All systems not noted in ROS Statement are negative. Past Medical History Past Medical History: Asthma, Diabetes Mellitus, Osteoarthritis (OA) Additional Past Medical History / Comment(s): IDDM type I, diabetic gastroparesis, neuropathy bilateral hands/fingers, migraines, arthrtitis fingers/knees, past R hand and L femur fractures. History of Any Multi-Drug Resistant Organisms: MRSA Date of last positivie culture/infection: 04/26/2014 MDRO Source:: Face Past Surgical History: Ear Surgery, Orthopedic Surgery Additional Past Surgical History / Comment(s): R hand surgery d/t fracture- pinned and pins since removed, L leg femur fracture with pin that eventually was removed, bilateral myringotomy with tubes/ear drum repairs. Past Anesthesia/Blood Transfusion Reactions: No Reported Reaction Past Psychological History: Anxiety, Bipolar, Depression Smoking Status: Current every day smoker Past Alcohol Use History: Occasional Past Drug Use History: Marijuana, Methamphetamine - Past Family History Father Family Medical History: Hyperlipidemia, Hypertension Mother Family Medical History: COPD Additional Family Medical History / Comment(s): home O2, Brother(s) Family Medical History: No Reported History General Exam Limitations: altered mental status General appearance: obtunded Head exam: Present: atraumatic, normocephalic Eye exam: Present: PERRL, EOMI ENT exam: Present: mucous membranes dry Neck exam: Present: normal inspection. Absent: tenderness, meningismus, lymphadenopathy Respiratory exam: Present: other (kussmal respirations). Absent: wheezes, ra les, rhonchi Cardiovascular Exam: Present: regular rate, normal rhythm, normal heart sounds. Absent: systolic murmur, diastolic murmur, rubs, gallop, clicks GI/Abdominal exam: Present: soft, normal bowel sounds. Absent: distended, tenderness, guarding, rebound, rigid Extremities exam: Present: normal inspection, full ROM, normal capillary refill. Absent: tenderness, pedal edema, joint swelling, calf tenderness Back exam: Present: normal inspection Neurological exam: Present: altered Skin exam: Present: warm, dry, intact, normal color. Absent: rash Course Vital Signs 12/12/19 12/12/19 12/12/19 16:10 17:30 17:58 Temperature Pulse Rate 79 97 97 Respiratory 18 16 Rate Blood Pressure 92/44 110/59 O2 Sat by Pulse 94 L 99 Oximetry 12/12/19 12/12/19 12/12/19 18:00 18:19 19:00 Temperature 94.0 F L 96.5 F L Pulse Rate 96 101 H 108 H Respiratory 16 16 Rate Blood Pressure 106/56 126/67 O2 Sat by Pulse 100 100 Oximetry 12/12/19 12/12/19 19:49 20:00 Temperature 97.8 F Pulse Rate 131 H 131 H Respiratory 16 18 Rate Blood Pressure 120/67 117/64 O2 Sat by Pulse 100 100 Oximetry EKG Findings - EKG Comments: EKG Findings:: EKG demonstrates a normal sinus rhythm with a ventricular rate of 84. [place] interval 146. QTC is 515. QRS 94. Patient does have peaked T waves in V2 through V4. Medical Decision Making - Medical Decision Making Upon arrival the patient was placed into trauma bay 2. Peripheral IV was established. Patient is given 3 L bolus of normal saline. He is respiring on his own. He does smell of ketones. Blood pressure does slowly start to improve on its own. We did get an Accu-Chek and it reads high. Lab studies were obtained. 12-lead EKG was performed which demonstrates peaked T waves in V2 through V4. Because of this the patient was given 1 amp of calcium chloride, 2 A of bicarb, 10 units of insulin and an albuterol treatment with 15 mg. After the 3 L bolus is finished we did perform an Accu-Chek and still reads high. Patient is initiated on a bicarbonate drip at 100 mL per hour and insulin drip at 5 units per hour. Lab studies are remarkable for a white count of 29.2. Blood gas shows a pH of 6.86. CO2 15. Bicarb of 3. Sodium 121. Potassium 7.8. Be 134. Creatinine 4.9. Magnesium 4.5. Urinalysis is positive for 2+ ketones. Urine drug screen is positive for methamphetamines and marijuana. Patient is acetone positive. I did discuss the case with Dr. Mcarthur and Dr. Ames who agreed to hospital admission. Patient is then transferred to the ICU in critical condition - Lab Data Result diagrams: 12/14/19 04:59 12/14/19 22:17 Lab Results 12/12/19 12/12/19 12/12/19 Range/Units 16:08 16:15 16:15 WBC 29.2 H (3.8-10.6) k/uL RBC 4.27 L (4.30-5.90) m/uL Hgb 13.6 (13.0-17.5) gm/dL Hct 58.5 H* (39.0-53.0) % MCV 137.0 H (80.0-100.0) fL MCH 31.9 (25.0-35.0) pg MCHC 23.3 L (31.0-37.0) g/dL RDW 13.7 (11.5-15.5) % Plt Count 392 (150-450) k/uL Neutrophils % 83 % Lymphocytes % 10 % Monocytes % 6 % Eosinophils % 0 % Basophils % 0 % Neutrophils # 24.1 H (1.3-7.7) k/uL Lymphocytes # 3.0 (1.0-4.8) k/uL Monocytes # 1.6 H (0-1.0) k/uL Eosinophils # 0.1 (0-0.7) k/uL Basophils # 0.1 (0-0.2) k/uL Manual Slide Review Performed Hypochromasia Marked Poikilocytosis (manual Present Macrocytosis Marked A PT (9.0-12.0) sec INR (<1.2) APTT (22.0-30.0) sec ABG pH (7.35-7.45) ABG pCO2 (35-45) mmHg ABG pO2 (83-108) mmHg ABG HCO3 (21-25) mmol/L ABG O2 Saturation (94-97) % ABG Base Excess mmol/L Gigi Test Sodium 121 L (137-145) mmol/L Potassium 7.8 H* (3.5-5.1) mmol/L Chloride 76 L (98-107) mmol/L Carbon Dioxide <5 L* (22-30) mmol/L Anion Gap mmol/L BUN 74 H (9-20) mg/dL Creatinine 4.90 H (0.66-1.25) mg/dL Est GFR (CKD-EPI)AfAm 17 (>60 ml/min/1.73 sqM) Est GFR (CKD-EPI)NonAf 15 (>60 ml/min/1.73 sqM) Glucose >1875 H* (74-99) mg/dL POC Glucose (mg/dL) >600 H (75-99) mg/dL POC Glu [employer] ID Miriam Renteria Calcium 8.3 L (8.4-10.2) mg/dL Magnesium 4.5 H (1.6-2.3) mg/dL Total Bilirubin 0.3 (0.2-1.3) mg/dL AST 25 (17-59) U/L ALT 53 H (4-49) U/L Alkaline Phosphatase 185 H (38-126) U/L Ammonia (<30) umol/L Total Protein 5.5 L (6.3-8.2) g/dL Albumin 3.6 (3.5-5.0) g/dL Lipase 32 (23-300) U/L TSH 1.520 (0.465-4.680) mIU/L Free T4 1.31 (0.78-2.19) ng/dL Urine Color Urine Appearance (Clear) Urine pH (5.0-8.0) Ur Specific [place] (1.001-1.035) Urine Protein (Negative) Urine Glucose (UA) (Negative) Urine Ketones (Negative) Urine Blood (Negative) Urine Nitrite (Negative) Urine Bilirubin (Negative) Urine Urobilinogen (<2.0) mg/dL Ur Leukocyte Esterase (Negative) Salicylates 1.1 mg/dL Urine Opiates Screen (NotDetected) Ur Oxycodone Screen (NotDetected) Urine Methadone Screen (NotDetected) Ur Propoxyphene Screen (NotDetected) Acetaminophen <10.0 ug/mL Ur Barbiturates Screen (NotDetected) U Tricyclic Antidepress (NotDetected) Ur Phencyclidine Scrn (NotDetected) Ur Amphetamines Screen (NotDetected) U Methamphetamines Scrn (NotDetected) U Benzodiazepines Scrn (NotDetected) Urine Cocaine Screen (NotDetected) U Marijuana (THC) Screen (NotDetected) Serum Alcohol <10 mg/dL Acetone, Qual Positive (Negative) 12/12/19 12/12/19 12/12/19 Range/Units 16:15 16:15 16:52 WBC (3.8-10.6) k/uL RBC (4.30-5.90) m/uL Hgb (13.0-17.5) gm/dL Hct (39.0-53.0) % MCV (80.0-100.0) fL MCH (25.0-35.0) pg MCHC (31.0-37.0) g/dL RDW (11.5-15.5) % Plt Count (150-450) k/uL Neutrophils % % Lymphocytes % % Monocytes % % Eosinophils % % Basophils % % Neutrophils # (1.3-7.7) k/uL Lymphocytes # (1.0-4.8) k/uL Monocytes # (0-1.0) k/uL Eosinophils # (0-0.7) k/uL Basophils # (0-0.2) k/uL Manual Slide Review Hypochromasia Poikilocytosis (manual Macrocytosis PT 10.7 (9.0-12.0) sec INR 1.0 (<1.2) APTT 31.8 H (22.0-30.0) sec ABG pH (7.35-7.45) ABG pCO2 (35-45) mmHg ABG pO2 (83-108) mmHg ABG HCO3 (21-25) mmol/L ABG O2 Saturation (94-97) % ABG Base Excess mmol/L Gigi Test Sodium (137-145) mmol/L Potassium (3.5-5.1) mmol/L Chloride (98-107) mmol/L Carbon Dioxide (22-30) mmol/L Anion Gap mmol/L BUN (9-20) mg/dL Creatinine (0.66-1.25) mg/dL Est GFR (CKD-EPI)AfAm (>60 ml/min/1.73 sqM) Est GFR (CKD-EPI)NonAf (>60 ml/min/1.73 sqM) Glucose (74-99) mg/dL POC Glucose (mg/dL) (75-99) mg/dL POC Glu [employer] ID Calcium (8.4-10.2) mg/dL Magnesium (1.6-2.3) mg/dL Total Bilirubin (0.2-1.3) mg/dL AST (17-59) U/L ALT (4-49) U/L Alkaline Phosphatase (38-126) U/L Ammonia 14 (<30) umol/L Total Protein (6.3-8.2) g/dL Albumin (3.5-5.0) g/dL Lipase (23-300) U/L TSH (0.465-4.680) mIU/L Free T4 (0.78-2.19) ng/dL Urine Color Light Yellow Urine Appearance Clear (Clear) Urine pH 5.0 (5.0-8.0) Ur Specific [place] 1.022 (1.001-1.035) Urine Protein Trace H (Negative) Urine Glucose (UA) 4+ H (Negative) Urine Ketones 2+ H (Negative) Urine Blood Negative (Negative) Urine Nitrite Negative (Negative) Urine Bilirubin Negative (Negative) Urine Urobilinogen <2.0 (<2.0) mg/dL Ur Leukocyte Esterase Negative (Negative) Salicylates mg/dL Urine Opiates Screen Not Detected (NotDetected) Ur Oxycodone Screen Not Detected (NotDetected) Urine Methadone Screen Not Detected (NotDetected) Ur Propoxyphene Screen Not Detected (NotDetected) Acetaminophen ug/mL Ur Barbiturates Screen Not Detected (NotDetected) U Tricyclic Antidepress Not Detected (NotDetected) Ur Phencyclidine Scrn Not Detected (NotDetected) Ur Amphetamines Screen Not Detected (NotDetected) U Methamphetamines Scrn Detected H (NotDetected) U Benzodiazepines Scrn Not Detected (NotDetected) Urine Cocaine Screen Not Detected (NotDetected) U Marijuana (THC) Screen Detected H (NotDetected) Serum Alcohol mg/dL Acetone, Qual (Negative) 12/12/19 12/12/19 Range/Units 17:00 18:19 WBC (3.8-10.6) k/uL RBC (4.30-5.90) m/uL Hgb (13.0-17.5) gm/dL Hct (39.0-53.0) % MCV (80.0-100.0) fL MCH (25.0-35.0) pg MCHC (31.0-37.0) g/dL RDW (11.5-15.5) % Plt Count (150-450) k/uL Neutrophils % % Lymphocytes % % Monocytes % % Eosinophils % % Basophils % % Neutrophils # (1.3-7.7) k/uL Lymphocytes # (1.0-4.8) k/uL Monocytes # (0-1.0) k/uL Eosinophils # (0-0.7) k/uL Basophils # (0-0.2) k/uL Manual Slide Review Hypochromasia Poikilocytosis (manual Macrocytosis PT (9.0-12.0) sec INR (<1.2) APTT (22.0-30.0) sec ABG pH 6.86 L* (7.35-7.45) ABG pCO2 15 L* (35-45) mmHg ABG pO2 87 (83-108) mmHg ABG HCO3 3 L* (21-25) mmol/L ABG O2 Saturation 88.5 L (94-97) % ABG Base Excess -29.2 mmol/L Gigi Test Yes Sodium (137-145) mmol/L Potassium (3.5-5.1) mmol/L Chloride (98-107) mmol/L Carbon Dioxide (22-30) mmol/L Anion Gap mmol/L BUN (9-20) mg/dL Creatinine (0.66-1.25) mg/dL Est GFR (CKD-EPI)AfAm (>60 ml/min/1.73 sqM) Est GFR (CKD-EPI)NonAf (>60 ml/min/1.73 sqM) Glucose (74-99) mg/dL POC Glucose (mg/dL) >600 H (75-99) mg/dL POC Glu [employer] ID Cynthia Martino Calcium (8.4-10.2) mg/dL Magnesium (1.6-2.3) mg/dL Total Bilirubin (0.2-1.3) mg/dL AST (17-59) U/L ALT (4-49) U/L Alkaline Phosphatase (38-126) U/L Ammonia (<30) umol/L Total Protein (6.3-8.2) g/dL Albumin (3.5-5.0) g/dL Lipase (23-300) U/L TSH (0.465-4.680) mIU/L Free T4 (0.78-2.19) ng/dL Urine Color Urine Appearance (Clear) Urine pH (5.0-8.0) Ur Specific [place] (1.001-1.035) Urine Protein (Negative) Urine Glucose (UA) (Negative) Urine Ketones (Negative) Urine Blood (Negative) Urine Nitrite (Negative) Urine Bilirubin (Negative) Urine Urobilinogen (<2.0) mg/dL Ur Leukocyte Esterase (Negative) Salicylates mg/dL Urine Opiates Screen (NotDetected) Ur Oxycodone Screen (NotDetected) Urine Methadone Screen (NotDetected) Ur Propoxyphene Screen (NotDetected) Acetaminophen ug/mL Ur Barbiturates Screen (NotDetected) U Tricyclic Antidepress (NotDetected) Ur Phencyclidine Scrn (NotDetected) Ur Amphetamines Screen (NotDetected) U Methamphetamines Scrn (NotDetected) U Benzodiazepines Scrn (NotDetected) Urine Cocaine Screen (NotDetected) U Marijuana (THC) Screen (NotDetected) Serum Alcohol mg/dL Acetone, Qual (Negative) Critical Care Time Critical Care Time: Yes Critical Care Time: 55 minutes Disposition Clinical Impression: Acute metabolic encephalopathy, DKA (diabetic ketoacidoses), Hypothermia, Hyperkalemia, Hypermagnesemia Disposition: ADMITTED IP TO THIS [facility] Condition: Serious Is patient prescribed a controlled substance at d/c from ED?: No Decision to Admit Reason: Admit from EC Decision Date: 12/12/19 Decision Time: 18:48
[2019-12-12] MEDS ORDERED: NALOXONE 0.4 MG/ML 1 ML VIAL IV PRN (18:52)
--- NOTE | 2019-12-12 18:58 | XR ---
EXAMINATION TYPE: XR chest 1V DATE OF EXAM: 12/12/2019 COMPARISON: 03/12/2018 HISTORY: Altered mental status TECHNIQUE: Single view FINDINGS: Heart and mediastinum are normal. There is a mild infiltrate lateral left lung base. Diaphr agm is normal. Bony thorax appears normal. There are chest leads. IMPRESSION: There is a mild left lower lobe pneumonia that appears new compared to old exam..
[2019-12-12] MEDS ORDERED: cefTRIAXone IN SWFI 1,000 MG/10 ML SYRINGE IVP STA ×2 (19:00→19:20)
--- NOTE | 2019-12-12 19:00 | CT ---
EXAMINATION TYPE: CT brain cspine wo con DATE OF EXAM: 12/12/2019 COMPARISON: None HISTORY: Altered mental status. CT DLP: 1333 mGycm Automated exposure control for dose reduction was used. Images were obtained of the cervical spine and brain with no contrast. Ventricles and sulci appear normal. There is no mass effect nor midline shift. There is no sign of in tracranial hemorrhage. Calvarium is intact. Exam limited slightly by motion. Cervical vertebra have normal alignment. Posterior elements are intact. Facet joints are intact. The skull base is intact. I see no bony destructive process. IMPRESSION: Negative CT scan of the brain. Negative CT scan cervical spine. No fracture.
[2019-12-12] MEDS: SODIUM BICARBONATE 150 MEQ in DEXTROSE 5% IN WATER 1,000 ML IV SCH ×2 (19:01)
[2019-12-12] MEDS ORDERED: LORazepam 2 MG/ML INJ IV ONE (19:30)
[2019-12-12 20:19] LABS: ALT 58 U/L (4-49); AST 53 U/L (17-59); African American GFR (CKD) 26 (>60 ml/min/1.73 sqM); Albumin 3.6 g/dL (3.5-5.0); Alkaline Phosphatase 179 U/L (38-126); Blood Urea Nitrogen 68 mg/dL (9-20); Calcium 8.7 mg/dL (8.4-10.2); Chloride 99 mmol/L (98-107); Magnesium 3.6 mg/dL (1.6-2.3); Non-African American GFR(CKD) 22 (>60 ml/min/1.73 sqM); Sodium 137 mmol/L (137-145); Total Bilirubin 0.3 mg/dL (0.2-1.3); Total Protein 5.8 g/dL (6.3-8.2)
[2019-12-12 20:29] LABS: Creatine Kinase MB 2.9 ng/mL (0.0-2.4); Troponin I <0.012 ng/mL (0.000-0.034)
[2019-12-12 20:42] LABS: Glucose 1675 mg/dL (74-99)
[2019-12-12 20:43] LABS: Carbon Dioxide <5 mmol/L (22-30)
[2019-12-12 20:56] LABS: Basophils # (A) 0.1 k/uL (0-0.2); Basophils % (A) 1 %; Eosinophils % (A) 0 %; HCT 53.6 % (39.0-53.0); HGB 14.9 gm/dL (13.0-17.5); Hypochromasia Marked; Lymphocytes # (A) 3.1 k/uL (1.0-4.8); Lymphocytes % (A) 11 %; MCH 32.9 pg (25.0-35.0); MCHC 27.9 g/dL (31.0-37.0); Macrocytosis Marked; Mean Platelet Volume 9.7; Monocytes # (A) 1.6 k/uL (0-1.0); Monocytes % (A) 6 %; Neutrophils # (A) 22.3 k/uL (1.3-7.7); Neutrophils % (A) 82 %; Platelet Count 292 k/uL (150-450); RBC 4.54 m/uL (4.30-5.90); RDW 13.1 % (11.5-15.5); WBC 27.3 k/uL (3.8-10.6)
[2019-12-12] MEDS ORDERED: CALCIUM GLUCONATE 1 GM in SODIUM CHLORIDE 0.9% 100 ML IVPB ONE ×2 (21:18→22:00)
--- NOTE | 2019-12-12 21:33 | P.HPIM ---
History of Present Illness H&P Date: 12/12/19 The patient is a 29-year-old male with a PMH of type I DM (history of multiple episodes of DKA), diabetic gastroparesis, asthma, anxiety, bipolar, and depression who was brought into the ED after he was found unresponsive. History obtained from the ED physician as patient continues to be somnolent and minimally responsive. The patient was reportedly found in his basement unresponsive. The patient's last well-known time was 8 PM the previous night as seen by his father. The father reports that the patient lives by himself though has been suffering from substance abuse issues. He also had reported to the ED physician that the patient likely used methamphetamine overnight. The patient was brought into the hospital minimally responsive with severe electrolyte derangements. In the ED, laboratory evaluation revealed a sodium of 121, potassium 7.8, chloride 76, CO2 less than 5, BUN 74, creatinine 4.90, glucose greater than 1875, pH 6.86, WBC count 29.2, hemoglobin 13.6, with urine toxi cology positive for methamphetamine. EKG revealed a normal sinus rhythm at 84 bpm with peak T waves and a prolonged QTC at [address] head and cervical spine were unremarkable. Chest x-ray revealed mild left lower lobe pneumonia. The patient's vitals in the emergency room were BP 117/64, pulse 131, saturating 100% on nasal cannula 2 L, and T 97.8F though was initially hypothermic at 94F. The patient's RN reported that his mentation had improved since the patient was now opening his eyes, able to state his name, and follow very basic commands. The patient however was not able to answer any additional questions or provide any meaningful history. Review of Systems ROS unobtainable: due to mental status Past Medical History Past Medical History: Asthma, Diabetes Mellitus, Osteoarthritis (OA) Additional Past Medical History / Comment(s): IDDM type I, diabetic gastroparesis, neuropathy bilateral hands/fingers, migraines, arthrtitis fingers/knees, past R hand and L femur fractures. History of Any Multi-Drug Resistant Organisms: MRSA Date of last positivie culture/infection: 04/26/2014 MDRO Source:: Face Past Surgical History: Ear Surgery, Orthopedic Surgery Additional Past Surgical History / Comment(s): R hand surgery d/t fracture- pinned and pins since removed, L leg femur fracture with pin that eventually was removed, bilateral myringotomy with tubes/ear drum repairs. Past Anesthesia/Blood Transfusion Reactions: No Reported Reaction Past Psychological History: Anxiety, Bipolar, Depression Smoking Status: Current every day smoker Past Alcohol Use History: Occasional Past Drug Use History: Marijuana, Methamphetamine - Past Family History Father Family Medical History: Hyperlipidemia, Hypertension Mother Family Medical History: COPD Additional Family Medical History / Comment(s): home O2, Brother(s) Family Medical History: No Reported History Medications and Allergies Home Medications Medication Instructions Recorded Confirmed Type Insulin Glargine,Hum.rec.anlog 70 units INJ DAILY 12/12/19 12/12/19 History [Basaglar Kwikpen U-100] Insulin Lispro [Admelog] 16 units INJ TID-W/MEALS 12/12/19 12/12/19 History Allergies Allergy/AdvReac Type Severity Reaction Status Date / Time latex Allergy Rash/Hives Verified 12/12/19 20:08 Physical Exam Vitals: Vital Signs Temp Pulse Resp BP Pulse Ox 12/12/19 20:00 131 H 18 117/64 100 12/12/19 19:49 97.8 F 131 H 16 120/67 100 12/12/19 19:00 96.5 F L 108 H 16 126/67 100 12/12/19 18:19 101 H 12/12/19 18:00 94.0 F L 96 16 106/56 100 12/12/19 17:58 97 12/12/19 17:30 97 16 110/59 99 12/12/19 16:10 79 18 92/44 94 L Intake and Output 12/12/19 12/12/19 12/12/19 06:59 14:59 22:59 Other: Weight 55.792 kg General: Disheveled frail male, somnolent, appears older than stated age Derm: Very dry skin throughout with scabs Head: atraumatic, normocephalic, symmetric Eyes: EOMI, no lid lag, anicteric sclera, pupils equal round reactive to light ENT: Nose and ears atraumatic, oral mucosa extremely dry Neck: No thyromegaly, no cervical lymphadenopathy, trachea midline Mouth: no lip lesion, mucus membranes very dry Cardiovascular: S1S2 reg, tachycardic, no murmur, positive posterior tibial pulse bilateral, no edema, capillary refill less than 2 seconds Lungs: CTA bilateral, some scattered coarse breath sounds, no wheezing or rales appreciated, no accessory muscle use Abdominal: soft, nontender to palpation, no guarding, no appreciable organomegaly, normal bowel sounds Ext: Thin extremities, no contractures, unable to test strength since patient not following commands Neuro: Opening eyes, able to state his name and follow very basic commands, moving all extremities Results CBC & Chem 7: 12/12/19 19:45 12/12/19 22:00 Labs: Abnormal Lab Results - Last 24 Hours (Table) 12/12/19 12/12/19 12/12/19 Range/Units 16:15 16:15 16:15 WBC 29.2 H (3.8-10.6) k/uL RBC 4.27 L (4.30-5.90) m/uL Hct 58.5 H* (39.0-53.0) % MCV 137.0 H (80.0-100.0) fL MCHC 23.3 L (31.0-37.0) g/dL Neutrophils # 24.1 H (1.3-7.7) k/uL Monocytes # 1.6 H (0-1.0) k/uL Macrocytosis Marked A APTT 31.8 H (22.0-30.0) sec ABG pH (7.35-7.45) ABG pCO2 (35-45) mmHg ABG HCO3 (21-25) mmol/L ABG O2 Saturation (94-97) % Sodium 121 L (137-145) mmol/L Potassium 7.8 H* (3.5-5.1) mmol/L Chloride 76 L (98-107) mmol/L Carbon Dioxide <5 L* (22-30) mmol/L BUN 74 H (9-20) mg/dL Creatinine 4.90 H (0.66-1.25) mg/dL Glucose >1875 H* (74-99) mg/dL Calcium 8.3 L (8.4-10.2) mg/dL Magnesium 4.5 H (1.6-2.3) mg/dL ALT 53 H (4-49) U/L Alkaline Phosphatase 185 H (38-126) U/L Total Protein 5.5 L (6.3-8.2) g/dL Urine Protein (Negative) Urine Glucose (UA) (Negative) Urine Ketones (Negative) U Methamphetamines Scrn (NotDetected) U Marijuana (THC) Screen (NotDetected) 12/12/19 12/12/19 Range/Units 16:52 17:00 WBC (3.8-10.6) k/uL RBC (4.30-5.90) m/uL Hct (39.0-53.0) % MCV (80.0-100.0) fL MCHC (31.0-37.0) g/dL Neutrophils # (1.3-7.7) k/uL Monocytes # (0-1.0) k/uL Macrocytosis APTT (22.0-30.0) sec ABG pH 6.86 L* (7.35-7.45) ABG pCO2 15 L* (35-45) mmHg ABG HCO3 3 L* (21-25) mmol/L ABG O2 Saturation 88.5 L (94-97) % Sodium (137-145) mmol/L Potassium (3.5-5.1) mmol/L Chloride (98-107) mmol/L Carbon Dioxide (22-30) mmol/L BUN (9-20) mg/dL Creatinine (0.66-1.25) mg/dL Glucose (74-99) mg/dL Calcium (8.4-10.2) mg/dL Magnesium (1.6-2.3) mg/dL ALT (4-49) U/L Alkaline Phosphatase (38-126) U/L Total Protein (6.3-8.2) g/dL Urine Protein Trace H (Negative) Urine Glucose (UA) 4+ H (Negative) Urine Ketones 2+ H (Negative) U Methamphetamines Scrn Detected H (NotDetected) U Marijuana (THC) Screen Detected H (NotDetected) Assessment and Plan Plan: Diabetic ketoacidosis -Continue with titrated insulin infusion with blood glucose monitoring every hour and BMP every 2-3 hours -Continue sodium bicarbonate infusion 125 mL an hour along with normal saline 125 mL an hour -Neurochecks, falls precautions -Cardiac monitoring BILL, likely secondary to severe dehydration -Nephrology consult -Monitor BMP -Continue with IV hydration as above Prolonged QTc -Avoid any QT prolonging agents -Cardiac monitoring Pseudohyponatremia, due to significant hyperglycemia -Corrected Sodium 155 mEq/L -C/w above IV hydration Hyperkalemia, status post calcium chloride and gluconate supplementation -Received cocktail in the emergency room -Continue with DKA management Leukocytosis, likely secondary to severe dehydration -Continue to monitor Methamphetamine abuse -Monitor for signs of withdrawal DVT prophylaxis -Heparin subq The patient is admitted with an anticipated greater than 2 midnight stay for evaluation of DKA CODE STATUS: Full Code Discussed with: Anticipated discharge date: 4-[address]: Home A total of 40 minutes was spent on the care of this complex patient more than 50% of the time was spent in counseling and care coordination.
[2019-12-13 00:53] LABS: Calcium 9.9 mg/dL (8.4-10.2); Magnesium 3.6 mg/dL (1.6-2.3); Potassium 4.7 mmol/L (3.5-5.1)
[2019-12-13 03:58] LABS: HCT 44.3 % (39.0-53.0); MCH 30.6 pg (25.0-35.0); MCHC 31.6 g/dL (31.0-37.0); Mean Platelet Volume 8.7; Platelet Count 327 k/uL (150-450); RBC 4.58 m/uL (4.30-5.90); RDW 13.5 % (11.5-15.5); WBC 26.9 k/uL (3.8-10.6)
[2019-12-13] MEDS: SODIUM CHLORIDE 0.9% 1,000 ML IV SCH ×2 (04:07→05:23)
[2019-12-13 04:10] LABS: MCV 96.7 fL (80.0-100.0)
[2019-12-13 04:11] LABS: Calcium 9.4 mg/dL (8.4-10.2); Magnesium 3.2 mg/dL (1.6-2.3); Potassium 4.6 mmol/L (3.5-5.1)
[2019-12-13 05:09] LABS: ABG Base Excess 4.6 mmol/L; ABG HCO3 29 mmol/L (21-25); ABG Oxygen Saturation 98.6 % (94-97); ABG PCO2 42 mmHg (35-45); ABG PH 7.44 (7.35-7.45); ABG PO2 122 mmHg (83-108); ABG TCO2 30 mmol/L (19-24); Allen Test Performed? Yes
[2019-12-13] MEDS: SODIUM BICARBONATE 150 MEQ in DEXTROSE 5% IN WATER 1,000 ML IV SCH ×2 (05:21)
[2019-12-13] MEDS ORDERED: AZITHROMYCIN 500 MG TAB PO STA (08:09)
[2019-12-13 08:58] LABS: Albumin 3.3 g/dL (3.5-5.0); Calcium 8.6 mg/dL (8.4-10.2); Total Bilirubin 0.6 mg/dL (0.2-1.3); Total Protein 5.6 g/dL (6.3-8.2)
--- NOTE | 2019-12-13 09:13 | P.CNPUL ---
History of Present Illness Consult date: 12/13/19 Requesting physician: Krysten Arita Reason for consult: other (Critical care management) Chief complaint: Altered mental status History of present illness: This is a 29-year-old gentleman with a known history of insulin-dependent diabetes mellitus, type I. He follows with Dr. Emelia holloway as his primary care provider. He was brought into the emergency room yesterday after his father found him unresponsive at home. He had been known to be using methamphetamines and developed significant nausea and vomiting. They're unclear if he was taking his insulin. He was found to be in DKA with a glucose greater than 1875. PH of 6.86. PCO2 15. Bicarb of 3. White count 27.3. MCV 118. Sodium 151. Potassium 4.7. Bicarb 16. Creatinine 2.28. Urine drug screen positive for methamphetamines and marijuana. He was admitted to the intensive care unit and is seen today in consultation. He is currently awake, restless. He is maintaining O2 saturations in the 90s on room air. He has a 0.9 normal saline at 125 ML's per hour. D5W with 3 A of bicarb at 100 ML's per hour. Insulin at 1 unit per hour. Current lab values reveal a WBC of 26.9. Hemoglobin 14.0. P O2 122. PCO2 42. PH now 7.44 on 28% FiO2. Sodium 158. Potassium 5.0. Chloride 117. Bicarb 28. Anion gap 13. Creatinine 1.31. Glucose 488. Review of Systems REVIEW OF SYSTEMS: CONSTITUTIONAL: Denies any recent significant weight loss or weight gain. EYES: Denies change in vision. EARS, NOSE, MOUTH, THROAT: Positive for thirst Denies headaches, denies sore throat. CARDIOVASCULAR: Denies chest pain, palpitations or syncopal episodes. RESPIRATORY: Denies shortness of breath, cough, congestion or hemoptysis. GASTROINTESTINAL: Denies change in appetite, denies abdominal pain GENITOURINARY: Denies hematuria, denies infections. MUSKULOSKELETAL: Denies pain, denies swelling. INTEGUMENTARY: Denies rash, denies eczema. NEUROLOGICAL: Denies recent memory loss, no recent seizure activity. PSYCHIATRIC: Denies anxiety, denies depression. HEMATOLOGIC/LYMPHATIC: Denies anemia, denies enlarged lymph nodes. Past Medical History Past Medical History: Asthma, Diabetes Mellitus, Osteoarthritis (OA) Additional Past Medical History / Comment(s): IDDM type I, diabetic gastroparesis, neuropathy bilateral hands/fingers, migraines, arthrtitis fingers/knees, past R hand and L femur fractures. History of Any Multi-Drug Resistant Organisms: MRSA Date of last positivie culture/infection: 04/26/2014 MDRO Source:: Face Past Surgical History: Ear Surgery, Orthopedic Surgery Additional Past Surgical History / Comment(s): R hand surgery d/t fracture- pinned and pins since removed, L leg femur fracture with pin that eventually was removed, bilateral myringotomy with tubes/ear drum repairs. Past Anesthesia/Blood Transfusion Reactions: No Reported Reaction Past Psychological History: Anxiety, Bipolar, Depression Smoking Status: Current every day smoker Past Alcohol Use History: Occasional Past Drug Use History: Marijuana, Methamphetamine - Past Family History Father Family Medical History: Hyperlipidemia, Hypertension Mother Family Medical History: COPD Additional Family Medical History / Comment(s): home O2, Brother(s) Family Medical History: No Reported History Medications and Allergies Home Medications Medication Instructions Recorded Confirmed Type Insulin Glargine,Hum.rec.anlog 70 units INJ DAILY 12/12/19 12/12/19 History [Basaglar Kwikpen U-100] Insulin Lispro [Admelog] 16 units INJ TID-W/MEALS 12/12/19 12/12/19 History Allergies Allergy/AdvReac Type Severity Reaction Status Date / Time latex Allergy Rash/Hives Verified 12/12/19 20:08 Physical Exam Vitals: Vital Signs Temp Pulse Pulse Resp BP BP Pulse Ox 12/13/19 07:09 115 H 23 134/82 99 12/13/19 04:00 99 F 126 H 26 H 125/75 99 12/13/19 03:31 135 H 27 H 118/79 99 12/13/19 02:00 131 H 26 H 126/78 99 12/13/19 00:00 134 H 30 H 12/12/19 23:00 140 H 37 H 110/69 99 12/12/19 21:00 134 H 30 H 112/64 100 12/12/19 20:27 98.9 F 137 H 37 H 113/61 100 12/12/19 20:00 131 H 18 117/64 100 12/12/19 19:49 97.8 F 131 H 16 120/67 100 12/12/19 19:00 96.5 F L 108 H 16 126/67 100 12/12/19 18:19 101 H 12/12/19 18:00 94.0 F L 96 16 106/56 100 12/12/19 17:58 97 12/12/19 17:30 97 16 110/59 99 12/12/19 16:10 79 18 92/44 94 L Intake and Output 12/12/19 12/13/19 12/13/19 22:59 06:59 14:59 Intake Total 225 2305.525 225 Output Total 450 1150 125 Balance -225 1155.525 100 Intake: IV 225 2250 225 Dextrose 5% in Water 1, 100 1000 100 000 ml @ 100 mls/hr IV . [id number] ARUNA with Sodium Bicarb (1 Meq/ml) 150 ml Rx#:[id number] Sodium Chloride 0.9% 1, 125 1250 125 000 ml @ 125 mls/hr IV . Q8H ARUNA Rx#:[id number] Intake, IV Titration 55.525 Amount Insulin Regular 100 unit 55.525 In Sodium Chloride 0.9% 100 ml @ Titrate 5 mls/hr IV .Q20H ARUNA Rx#: [id number] Output: Urine 450 1150 125 Other: Voiding Method Indwelling Catheter Indwelling Catheter Weight 55.5 kg 55.5 kg GENERAL EXAM: Alert, oriented, thin 29-year-old gentleman, on room air, comfortable in no apparent distress. HEAD: Normocephalic. EYES: Normal reaction of pupils, equal size. NOSE: Clear with pink turbinates. THROAT: No erythema or exudates. NECK: No masses, no JVD. CHEST: No chest wall deformity. LUNGS: Equal air entry with no crackles, wheeze, rhonchi or dullness. CVS: S1 and S2 normal with no audible murmur, regular rhythm. ABDOMEN: No hepatosplenomegaly, normal bowel sounds, no guarding or rigidity. SPINE: No scoliosis or deformity SKIN: There is a healing wound throughout his lower extremity. No rashes CENTRAL NERVOUS SYSTEM: No focal deficits, tone is normal in all 4 extremities. EXTREMITIES: There is no peripheral edema. No clubbing, no cyanosis. Peripheral pulses are intact. Results - Laboratory Findings CBC and BMP: 07/09/20 03:13 12/13/19 03:13 ABG ABG pH 7.44 (7.35-7.45) 12/13/19 05:04 ABG pCO2 42 mmHg (35-45) 12/13/19 05:04 ABG pO2 122 mmHg (83-108) H 12/13/19 05:04 ABG O2 Saturation 98.6 % (94-97) H 12/13/19 05:04 PT/INR, D-dimer PT 10.7 sec (9.0-12.0) 12/12/19 16:15 INR 1.0 (<1.2) 12/12/19 16:15 Abnormal lab findings: Abnormal Labs 12/12/19 12/12/19 12/12/19 16:15 16:15 16:15 WBC 29.2 H RBC 4.27 L Hct 58.5 H* MCV 137.0 H MCHC 23.3 L Neutrophils # 24.1 H Monocytes # 1.6 H Macrocytosis Marked A APTT 31.8 H ABG pH ABG pCO2 ABG pO2 ABG HCO3 ABG Total CO2 ABG O2 Saturation Sodium 121 L Potassium 7.8 H* Chloride 76 L Carbon Dioxide <5 L* BUN 74 H Creatinine 4.90 H Glucose >1875 H* Calcium 8.3 L Magnesium 4.5 H ALT 53 H Alkaline Phosphatase 185 H CK-MB (CK-2) Total Protein 5.5 L Urine Protein Urine Glucose (UA) Urine Ketones U Methamphetamines Scrn U Marijuana (THC) Screen 12/12/19 12/12/19 12/12/19 16:52 17:00 19:45 WBC RBC Hct MCV MCHC Neutrophils # Monocytes # Macrocytosis APTT ABG pH 6.86 L* ABG pCO2 15 L* ABG pO2 ABG HCO3 3 L* ABG Total CO2 ABG O2 Saturation 88.5 L Sodium Potassium Chloride Carbon Dioxide BUN Creatinine Glucose Calcium Magnesium ALT Alkaline Phosphatase CK-MB (CK-2) 2.9 H Total Protein Urine Protein Trace H Urine Glucose (UA) 4+ H Urine Ketones 2+ H U Methamphetamines Scrn Detected H U Marijuana (THC) Screen Detected H 12/12/19 12/12/19 12/12/19 19:45 19:45 22:00 WBC 27.3 H RBC Hct 53.6 H MCV 118.0 H D MCHC 27.9 L Neutrophils # 22.3 H Monocytes # 1.6 H Macrocytosis Marked A APTT ABG pH ABG pCO2 ABG pO2 ABG HCO3 ABG Total CO2 ABG O2 Saturation Sodium Potassium Chloride Carbon Dioxide <5 L* BUN 68 H Creatinine 3.50 H Glucose 1675 H* 1193 H* Calcium Magnesium 3.6 H ALT 58 H Alkaline Phosphatase 179 H CK-MB (CK-2) Total Protein 5.8 L Urine Protein Urine Glucose (UA) Urine Ketones U Methamphetamines Scrn U Marijuana (THC) Screen 12/12/19 12/13/19 12/13/19 23:41 01:00 02:16 WBC RBC Hct MCV MCHC Neutrophils # Monocytes # Macrocytosis APTT ABG pH ABG pCO2 ABG pO2 ABG HCO3 ABG Total CO2 ABG O2 Saturation Sodium 151 H Potassium Chloride 112 H Carbon Dioxide 16 L BUN 63 H Creatinine 2.28 H Glucose 820 H* 719 H* 607 H* Calcium Magnesium 3.6 H ALT Alkaline Phosphatase CK-MB (CK-2) Total Protein Urine Protein Urine Glucose (UA) Urine Ketones U Methamphetamines Scrn U Marijuana (THC) Screen 12/13/19 12/13/19 12/13/19 03:13 03:13 05:04 WBC 26.9 H RBC Hct MCV MCHC Neutrophils # Monocytes # Macrocytosis APTT ABG pH ABG pCO2 ABG pO2 122 H ABG HCO3 29 H ABG Total CO2 30 H ABG O2 Saturation 98.6 H Sodium 154 H Potassium Chloride 116 H Carbon Dioxide BUN 61 H Creatinine 1.69 H Glucose 522 H* Calcium Magnesium 3.2 H ALT Alkaline Phosphatase CK-MB (CK-2) Total Protein Urine Protein Urine Glucose (UA) Urine Ketones U Methamphetamines Scrn U Marijuana (THC) Screen Assessment and Plan Assessment: 1 Acute diabetic ketoacidosis secondary to nausea vomiting in a patient with a known history of type 1 diabetes mellitus 2 Acute anion gap metabolic acidosis secondary to above 3 Acute renal failure secondary to above 4 Acute hyperkalemia secondary to above 5 Hypernatremia, hyperchloremia 6 Leukocytosis 7 Urine drug screen positive for methamphetamines and marijuana Plan: The patient was seen and evaluated by Dr. Ames Chest x-ray and labs reviewed Discontinue 0.9 normal saline Discontinue bicarbonate drip Continue with DKA protocol Correct electrolytes Continue empiric antibiotics Educated regarding the importance of medication compliance Educated regarding the importance of avoiding drugs We'll continue to follow and make further recommendations based on his clinical status I, the cosigning physician, performed a history & physical examination of the patient. Lungs sounds are clear. Maintaining good O2 saturations in the 90s on room air. I discussed the assessment and plan of care with my nurse practitioner, Michelle Matias. I attest to the above note as dictated by her. Time with Patient: Greater than 30
[2019-12-13] MEDS ORDERED: DEXTROSE 5% IN WATER 1,000 ML IV SCH (09:30)
[2019-12-13 10:09] LABS: Glucose,Whole Blood 505 mg/dL (75-99)
[2019-12-13] MEDS ORDERED: DEXTROSE 5%-0.45% NACL 1,000 ML IV SCH (10:30)
[2019-12-13 11:06] LABS: Glucose,Whole Blood 428 mg/dL (75-99)
[2019-12-13 12:20] LABS: Glucose,Whole Blood 368 mg/dL (75-99)
[2019-12-13 13:07] LABS: Glucose,Whole Blood 392 mg/dL (75-99)
[2019-12-13 14:25] LABS: Glucose,Whole Blood 467 mg/dL (75-99)
--- NOTE | 2019-12-13 14:32 | P.PN ---
Subjective Progress Note Date: 12/13/19 Principal diagnosis: altered mentation Patient is a 29-year-old male with type 1 diabetes mellitus (history of multiple episodes of DKA though not any here in the last 3 years), diabetic gastroparesis, asthma, and multiple other comorbid conditions was brought to the ER after being found unresponsive. In the ER he underwent an extensive evaluation. On arrival he was hypotensive with a blood pressure of 92/41, hypothermic with a rectal temperature of 94, and showed decreased responsiveness. Laboratory analysis confirms severe diabetic ketoacidosis with pH of 6.8, bicarbonate 3, and serum glucose greater than detectable. Urinalysis was negative, chest x-ray showed possible left-sided pneumonia, urine drug screen was positive for methamphetamines and marijuana, and lipase was normal. He was started on aggressive IV fluid resuscitation. He was noted to have of potassium of 7.8 with peaked T waves on EKG and he were received calcium gluconate, IV bicarb, and was then placed on a bicarb drip. He is also started on insulin drip. Antibiotics were initiated for his pneumonia. He is admitted to the ICU for further monitoring. Nephrology was consulted. Overnight on 12/11 he had improvement in his acidosis and hyperglycemia. By the morning of 12/12 his anion gap was closed 1 however he was still very lethargic and not eating and drinking. He was maintained on his insulin drip. He was noted to become hypernatremic and his fluids were switched over to D5W with half-normal (bicarb drip was stopped). Patient seen and examined at bedside. He wakes up to physical stimulation but not place. When asked if he is hungry he states no one immediately falls back asleep. When asked if he has a primary care physician he states yesterday was unable to tolerate this is. He is unable to tell me who prescribes his insulin. Objective - Vital Signs Vital signs: Vital Signs Temp 98.2 F 12/13/19 09:23 Pulse 109 H 12/13/19 10:00 Resp 26 H 12/13/19 10:00 BP 120/69 12/13/19 10:00 Pulse Ox 96 12/13/19 10:00 Intake & Output 12/12/19 12/13/19 12/13/19 18:59 06:59 18:59 Intake Total 2530.525 225 Output Total 1600 125 Balance 930.525 100 Weight 55.792 kg 55.5 kg Intake: IV 2475 225 Dextrose 5% in Water 1, 1100 100 000 ml @ 100 mls/hr IV . [id number] ARUNA with Sodium Bicarb (1 Meq/ml) 150 ml Rx#:[id number] Sodium Chloride 0.9% 1, 1375 125 000 ml @ 125 mls/hr IV . Q8H ARUNA Rx#:[id number] Intake, IV Titration 55.525 Amount Insulin Regular 100 unit 55.525 In Sodium Chloride 0.9% 100 ml @ Titrate 5 mls/hr IV .Q20H ARUNA Rx#: [id number] Output: Urine 1600 125 Other: Voiding Method Indwelling Catheter - Exam General: Ill appearing, mild distress, disheveled, appears at stated age Derm: warm, dry Head: atraumatic, normocephalic, symmetric Eyes: EOMI, no lid lag, anicteric sclera Mouth: no lip lesion, mucus membranes dry Cardiovascular: S1S2 reg, no murmur, positive posterior tibial pulse bilateral, Lungs: Coarse breath sounds bilateral , no accessory muscle use Abdominal: soft, nontender to palpation, no guarding, no appreciable organomegaly Ext: no gross muscle atrophy, no edema, no contractures, moving all 4 extremities independently Psych: Lethargic, one-word answers - Labs CBC & Chem 7: 12/13/19 03:13 12/13/19 08:31 Labs: Abnormal Lab Results - Last 24 Hours (Table) 12/12/19 12/12/19 12/12/19 Range/Units 16:15 16:15 16:15 WBC 29.2 H (3.8-10.6) k/uL RBC 4.27 L (4.30-5.90) m/uL Hct 58.5 H* (39.0-53.0) % MCV 137.0 H (80.0-100.0) fL MCHC 23.3 L (31.0-37.0) g/dL Neutrophils # 24.1 H (1.3-7.7) k/uL Monocytes # 1.6 H (0-1.0) k/uL Macrocytosis Marked A APTT 31.8 H (22.0-30.0) sec ABG pH (7.35-7.45) ABG pCO2 (35-45) mmHg ABG pO2 (83-108) mmHg ABG HCO3 (21-25) mmol/L ABG Total CO2 (19-24) mmol/L ABG O2 Saturation (94-97) % Sodium 121 L (137-145) mmol/L Potassium 7.8 H* (3.5-5.1) mmol/L Chloride 76 L (98-107) mmol/L Carbon Dioxide <5 L* (22-30) mmol/L BUN 74 H (9-20) mg/dL Creatinine 4.90 H (0.66-1.25) mg/dL Glucose >1875 H* (74-99) mg/dL POC Glucose (mg/dL) (75-99) mg/dL Calcium 8.3 L (8.4-10.2) mg/dL Magnesium 4.5 H (1.6-2.3) mg/dL ALT 53 H (4-49) U/L Alkaline Phosphatase 185 H (38-126) U/L CK-MB (CK-2) (0.0-2.4) ng/mL Total Protein 5.5 L (6.3-8.2) g/dL Albumin (3.5-5.0) g/dL Urine Protein (Negative) Urine Glucose (UA) (Negative) Urine Ketones (Negative) U Methamphetamines Scrn (NotDetected) U Marijuana (THC) Screen (NotDetected) 12/12/19 12/12/19 12/12/19 Range/Units 16:52 17:00 19:45 WBC (3.8-10.6) k/uL RBC (4.30-5.90) m/uL Hct (39.0-53.0) % MCV (80.0-100.0) fL MCHC (31.0-37.0) g/dL Neutrophils # (1.3-7.7) k/uL Monocytes # (0-1.0) k/uL Macrocytosis APTT (22.0-30.0) sec ABG pH 6.86 L* (7.35-7.45) ABG pCO2 15 L* (35-45) mmHg ABG pO2 (83-108) mmHg ABG HCO3 3 L* (21-25) mmol/L ABG Total CO2 (19-24) mmol/L ABG O2 Saturation 88.5 L (94-97) % Sodium (137-145) mmol/L Potassium (3.5-5.1) mmol/L Chloride (98-107) mmol/L Carbon Dioxide (22-30) mmol/L BUN (9-20) mg/dL Creatinine (0.66-1.25) mg/dL Glucose (74-99) mg/dL POC Glucose (mg/dL) (75-99) mg/dL Calcium (8.4-10.2) mg/dL Magnesium (1.6-2.3) mg/dL ALT (4-49) U/L Alkaline Phosphatase (38-126) U/L CK-MB (CK-2) 2.9 H (0.0-2.4) ng/mL Total Protein (6.3-8.2) g/dL Albumin (3.5-5.0) g/dL Urine Protein Trace H (Negative) Urine Glucose (UA) 4+ H (Negative) Urine Ketones 2+ H (Negative) U Methamphetamines Scrn Detected H (NotDetected) U Marijuana (THC) Screen Detected H (NotDetected) 12/12/19 12/12/19 12/12/19 Range/Units 19:45 19:45 22:00 WBC 27.3 H (3.8-10.6) k/uL RBC (4.30-5.90) m/uL Hct 53.6 H (39.0-53.0) % MCV 118.0 H D (80.0-100.0) fL MCHC 27.9 L (31.0-37.0) g/dL Neutrophils # 22.3 H (1.3-7.7) k/uL Monocytes # 1.6 H (0-1.0) k/uL Macrocytosis Marked A APTT (22.0-30.0) sec ABG pH (7.35-7.45) ABG pCO2 (35-45) mmHg ABG pO2 (83-108) mmHg ABG HCO3 (21-25) mmol/L ABG Total CO2 (19-24) mmol/L ABG O2 Saturation (94-97) % Sodium (137-145) mmol/L Potassium (3.5-5.1) mmol/L Chloride (98-107) mmol/L Carbon Dioxide <5 L* (22-30) mmol/L BUN 68 H (9-20) mg/dL Creatinine 3.50 H (0.66-1.25) mg/dL Glucose 1675 H* 1193 H* (74-99) mg/dL POC Glucose (mg/dL) (75-99) mg/dL Calcium (8.4-10.2) mg/dL Magnesium 3.6 H (1.6-2.3) mg/dL ALT 58 H (4-49) U/L Alkaline Phosphatase 179 H (38-126) U/L CK-MB (CK-2) (0.0-2.4) ng/mL Total Protein 5.8 L (6.3-8.2) g/dL Albumin (3.5-5.0) g/dL Urine Protein (Negative) Urine Glucose (UA) (Negative) Urine Ketones (Negative) U Methamphetamines Scrn (NotDetected) U Marijuana (THC) Screen (NotDetected) 12/12/19 12/13/19 12/13/19 Range/Units 23:41 01:00 02:16 WBC (3.8-10.6) k/uL RBC (4.30-5.90) m/uL Hct (39.0-53.0) % MCV (80.0-100.0) fL MCHC (31.0-37.0) g/dL Neutrophils # (1.3-7.7) k/uL Monocytes # (0-1.0) k/uL Macrocytosis APTT (22.0-30.0) sec ABG pH (7.35-7.45) ABG pCO2 (35-45) mmHg ABG pO2 (83-108) mmHg ABG HCO3 (21-25) mmol/L ABG Total CO2 (19-24) mmol/L ABG O2 Saturation (94-97) % Sodium 151 H (137-145) mmol/L Potassium (3.5-5.1) mmol/L Chloride 112 H (98-107) mmol/L Carbon Dioxide 16 L (22-30) mmol/L BUN 63 H (9-20) mg/dL Creatinine 2.28 H (0.66-1.25) mg/dL Glucose 820 H* 719 H* 607 H* (74-99) mg/dL POC Glucose (mg/dL) (75-99) mg/dL Calcium (8.4-10.2) mg/dL Magnesium 3.6 H (1.6-2.3) mg/dL ALT (4-49) U/L Alkaline Phosphatase (38-126) U/L CK-MB (CK-2) (0.0-2.4) ng/mL Total Protein (6.3-8.2) g/dL Albumin (3.5-5.0) g/dL Urine Protein (Negative) Urine Glucose (UA) (Negative) Urine Ketones (Negative) U Methamphetamines Scrn (NotDetected) U Marijuana (THC) Screen (NotDetected) 12/13/19 12/13/19 12/13/19 Range/Units 03:13 03:13 05:04 WBC 26.9 H (3.8-10.6) k/uL RBC (4.30-5.90) m/uL Hct (39.0-53.0) % MCV (80.0-100.0) fL MCHC (31.0-37.0) g/dL Neutrophils # (1.3-7.7) k/uL Monocytes # (0-1.0) k/uL Macrocytosis APTT (22.0-30.0) sec ABG pH (7.35-7.45) ABG pCO2 (35-45) mmHg ABG pO2 122 H (83-108) mmHg ABG HCO3 29 H (21-25) mmol/L ABG Total CO2 30 H (19-24) mmol/L ABG O2 Saturation 98.6 H (94-97) % Sodium 154 H (137-145) mmol/L Potassium (3.5-5.1) mmol/L Chloride 116 H (98-107) mmol/L Carbon Dioxide (22-30) mmol/L BUN 61 H (9-20) mg/dL Creatinine 1.69 H (0.66-1.25) mg/dL Glucose 522 H* (74-99) mg/dL POC Glucose (mg/dL) (75-99) mg/dL Calcium (8.4-10.2) mg/dL Magnesium 3.2 H (1.6-2.3) mg/dL ALT (4-49) U/L Alkaline Phosphatase (38-126) U/L CK-MB (CK-2) (0.0-2.4) ng/mL Total Protein (6.3-8.2) g/dL Albumin (3.5-5.0) g/dL Urine Protein (Negative) Urine Glucose (UA) (Negative) Urine Ketones (Negative) U Methamphetamines Scrn (NotDetected) U Marijuana (THC) Screen (NotDetected) 12/13/19 12/13/19 Range/Units 08:31 10:08 WBC (3.8-10.6) k/uL RBC (4.30-5.90) m/uL Hct (39.0-53.0) % MCV (80.0-100.0) fL MCHC (31.0-37.0) g/dL Neutrophils # (1.3-7.7) k/uL Monocytes # (0-1.0) k/uL Macrocytosis APTT (22.0-30.0) sec ABG pH (7.35-7.45) ABG pCO2 (35-45) mmHg ABG pO2 (83-108) mmHg ABG HCO3 (21-25) mmol/L ABG Total CO2 (19-24) mmol/L ABG O2 Saturation (94-97) % Sodium 158 H (137-145) mmol/L Potassium (3.5-5.1) mmol/L Chloride 117 H (98-107) mmol/L Carbon Dioxide (22-30) mmol/L BUN 58 H (9-20) mg/dL Creatinine 1.31 H (0.66-1.25) mg/dL Glucose 488 H (74-99) mg/dL POC Glucose (mg/dL) 505 H (75-99) mg/dL Calcium (8.4-10.2) mg/dL Magnesium (1.6-2.3) mg/dL ALT 62 H (4-49) U/L Alkaline Phosphatase 155 H (38-126) U/L CK-MB (CK-2) (0.0-2.4) ng/mL Total Protein 5.6 L (6.3-8.2) g/dL Albumin 3.3 L (3.5-5.0) g/dL Urine Protein (Negative) Urine Glucose (UA) (Negative) Urine Ketones (Negative) U Methamphetamines Scrn (NotDetected) U Marijuana (THC) Screen (NotDetected) Assessment and Plan Assessment: Severe DKA -Stop sodium bicarbonate infusion, start D5 half-normal -Monitor closely for rapidly decreasing blood sugars -Maintain insulin drip until patient is able to tolerate orals -Every hour Accu-Cheks -Repeat basic metabolic profile in 4 hours -Close monitoring Toxic metabolic encaphalopathy - treatment of DKA - Supportive care Acute kidney injury -Rapidly improving -Likely secondary to dehydration from hyperglycemia -Continue with IV fluids -Avoid nephrotoxic agents -Repeat creatinine in a.m. -Nephrology recommendations -Follow-up UA for protein or urine micoralbumin/cr ratio as currently at trace but like needs ACEI at baseline Leukocytosis with possible developing pneumonia -Possible aspiration event -Continue with Rocephin and Zithromax -repeat chest x-ray in a.m. -Follow CBC Hyponatremia -Likely is secondary to dehydration -Change IV fluids to D5 half-normal -Follow serial sodium levels -Nephrology recommendations Mildly elevated transaminase -ALT and alk phosphorus is elevated -Repeat in a.m. Hyperkalemia, resolved pseudohyponatremia, resolved Diabetic gastroparesis Neuropathy secondary to diabetes DVT prophylaxis: Heparin Discussed with: patient, nursing Anticipated discharge: in 3-[address]: [facility] A total of 45 minutes was spent on the care of this complex patient more than 50% of the time was spent in counseling and care coordination.
[2019-12-13 15:05] LABS: Glucose,Whole Blood 432 mg/dL (75-99)
[2019-12-13 15:24] LABS: African American GFR (CKD) >90 (>60 ml/min/1.73 sqM); Anion Gap 16 mmol/L; Blood Urea Nitrogen 46 mg/dL (9-20); Calcium 8.8 mg/dL (8.4-10.2); Carbon Dioxide 23 mmol/L (22-30); Chloride 117 mmol/L (98-107); Glucose 443 mg/dL (74-99); Non-African American GFR(CKD) >90 (>60 ml/min/1.73 sqM); Potassium 4.7 mmol/L (3.5-5.1); Sodium 156 mmol/L (137-145)
[2019-12-13 15:30] LABS: Glucose,Whole Blood 433 mg/dL (75-99)
[2019-12-13 15:35] LABS: Glucose,Whole Blood >600 mg/dL (75-99)
[2019-12-13 15:35] LABS: Glucose,Whole Blood >600 mg/dL (75-99)
[2019-12-13 15:35] LABS: Glucose,Whole Blood >600 mg/dL (75-99)
[2019-12-13 15:41] LABS: Glucose,Whole Blood 587 mg/dL (75-99)
[2019-12-13 15:41] LABS: Glucose,Whole Blood 456 mg/dL (75-99)
[2019-12-13 15:42] LABS: Glucose,Whole Blood 449 mg/dL (75-99)
--- NOTE | 2019-12-13 15:57 | CONS ---
CONSULTATION REASON FOR CONSULT: Renal failure. HISTORY OF PRESENT ILLNESS: Patient is a 29-year-old male who was brought into the hospital as he was found unresponsive. He was somnolent, minimally responsive. Patient was noted to have a blood sugar of greater than 1875 with pH of 6.8. His urine screen was positive for methamphetamine and marijuana. Acetone was positive as well. Patient has been maintained on insulin drip. He is admitted to the ICU. He has been hemodynamically stable. Serum creatinine was 4.9 on initial admission, it is now down to 1.3. Sodium is noted to be at 158. It was 121 yesterday. IV fluids have been switched to D5 half- normal saline. PAST MEDICAL HISTORY: Asthma, type 1 diabetes, osteoarthritis, diabetic gastroparesis, neuropathy, anxiety, bipolar disorder, depression. PAST SURGICAL HISTORY: Right hand surgery for fracture and pins, left leg femur fracture. Bilateral myringotomy with tubes. SOCIAL HISTORY: Positive for marijuana, methamphetamine use and smoking. MEDICATIONS: Prior to admission included insulin. ALLERGIES: Include LATEX, which causes rash and hives. PHYSICAL EXAMINATION: Patient is currently drowsy, he is arousable, not able to answer questions appropriately yet. Blood pressure was 120/69, heart rate 109 per minute, he is afebrile. Examination of the heart S1, S2. Examination of the lungs, bilateral breath sounds are heard. Abdomen is soft, nontender. Examination of the lower extremities shows no significant edema. CORRESPONDENCE CLERK exam is grossly intact. Patient is moving all 4 extremities. However, he is confused. LABS: Show sodium 158, potassium 5.8, chloride 117M, CO2 is 28, BUN 58, creatinine 1.31. ASSESSMENT: 1. Acute kidney injury, mostly prerenal currently improved, significantly. Blood pressure was low on admission with systolic in the 90s, currently improved. 2. Hyponatremia, associated with severe hyperglycemia, currently hypernatremic with the rapid increase in serum sodium from 121 to 158. Patient is maintained on half- normal saline and repeat electrolytes are ordered in the next 4 hours. We need to avoid such rapid increase in the serum sodium level. I will switch him back to D5W and we will adjust IV fluids based on his repeat sodium level. 3. Anion gap metabolic acidosis associated with DKA, gap is now closed. Patient is maintained on insulin drip. 4. Encephalopathy, multifactorial, associated with severe hyperglycemia, DKA and use of methamphetamines and marijuana on admission. 5. Type 1 diabetes. 6. Hyperkalemia on initial admission associated with severe hyperglycemia and renal failure and metabolic acidosis, now improved. PLAN: Switch IV back to D5W, repeat sodium in 3 hours and I will adjust the fluids based on her repeat sodium level. Thank you for this consultation. Will continue to follow the patient with you during his hospitalization. MMODL / IJN: [id number] /
[2019-12-13 16:05] LABS: Glucose,Whole Blood 417 mg/dL (75-99)
[2019-12-13 17:04] LABS: Glucose,Whole Blood 521 mg/dL (75-99)
[2019-12-13] MEDS: DEXTROSE 5% IN WATER 1,000 ML IV SCH ×2 (17:05→23:12)
[2019-12-13 18:00] LABS: Glucose,Whole Blood 489 mg/dL (75-99)
[2019-12-13 19:04] LABS: Glucose,Whole Blood 410 mg/dL (75-99)
[2019-12-13 20:03] LABS: Glucose,Whole Blood 367 mg/dL (75-99)
[2019-12-13 20:33] LABS: African American GFR (CKD) >90 (>60 ml/min/1.73 sqM); Anion Gap 17 mmol/L; Blood Urea Nitrogen 41 mg/dL (9-20); Calcium 9.2 mg/dL (8.4-10.2); Carbon Dioxide 21 mmol/L (22-30); Chloride 119 mmol/L (98-107); Glucose 373 mg/dL (74-99); Non-African American GFR(CKD) >90 (>60 ml/min/1.73 sqM); Potassium 4.4 mmol/L (3.5-5.1); Sodium 157 mmol/L (137-145)
[2019-12-13 21:12] LABS: Glucose,Whole Blood >600 mg/dL (75-99)
[2019-12-13 22:00] LABS: Glucose,Whole Blood 379 mg/dL (75-99)
[2019-12-13 23:03] LABS: Glucose,Whole Blood 375 mg/dL (75-99)
[2019-12-13 23:49] LABS: Glucose,Whole Blood 333 mg/dL (75-99)
[2019-12-14 01:00] LABS: Glucose,Whole Blood 372 mg/dL (75-99)
[2019-12-14 02:12] LABS: Glucose,Whole Blood 387 mg/dL (75-99)
[2019-12-14 02:59] LABS: Glucose,Whole Blood 364 mg/dL (75-99)
[2019-12-14 04:36] LABS: Glucose,Whole Blood 334 mg/dL (75-99)
[2019-12-14 05:21] LABS: HCT 39.2 % (39.0-53.0); HGB 12.7 gm/dL (13.0-17.5); MCHC 32.3 g/dL (31.0-37.0); MCV 96.2 fL (80.0-100.0); Mean Platelet Volume 8.2; Platelet Count 208 k/uL (150-450); RBC 4.08 m/uL (4.30-5.90); WBC 15.9 k/uL (3.8-10.6)
[2019-12-14 05:35] LABS: ALT 49 U/L (4-49); AST 54 U/L (17-59); African American GFR (CKD) >90 (>60 ml/min/1.73 sqM); Albumin 2.9 g/dL (3.5-5.0); Alkaline Phosphatase 164 U/L (38-126); Anion Gap 5 mmol/L; Blood Urea Nitrogen 30 mg/dL (9-20); Calcium 8.7 mg/dL (8.4-10.2); Carbon Dioxide 30 mmol/L (22-30); Chloride 112 mmol/L (98-107); Glucose 329 mg/dL (74-99); Magnesium 2.6 mg/dL (1.6-2.3); Non-African American GFR(CKD) >90 (>60 ml/min/1.73 sqM); Phosphorus 1.9 mg/dL (2.5-4.5); Sodium 147 mmol/L (137-145); Total Bilirubin 0.4 mg/dL (0.2-1.3); Total Protein 5.4 g/dL (6.3-8.2)
[2019-12-14 05:58] LABS: Glucose,Whole Blood 395 mg/dL (75-99)
[2019-12-14] MEDS ORDERED: Phosphorus Replacement Protoco 1 EACH MISC MISCELLANE PRN (06:10)
[2019-12-14] MEDS: INSULIN REGULAR 100 UNIT in SODIUM CHLORIDE 0.9% 100 ML IV SCH (06:20)
[2019-12-14] MEDS: POTASSIUM PHOSPHATE 10 MMOL in SODIUM CHLORIDE 0.9% 250 ML IV SCH ×2 (06:24→08:00)
--- NOTE | 2019-12-14 08:22 | XR ---
EXAMINATION TYPE: XR chest 1V portable DATE OF EXAM: 12/14/2019 COMPARISON: Prior chest x-ray 12/12/2019 HISTORY: Pneumonia TECHNIQUE: Single frontal view of the chest is obtained. FINDINGS: Patient is rotated and there are overlying cardiac leads. There is no pneumothorax or pleu ral effusion. Cardiac mediastinal silhouette, pulmonary vascularity and kirstin are within normal limits . Bones are stable. There is improved aeration as compared to prior exam. No evident airspace disease . IMPRESSION: Improved aeration
[2019-12-14 08:56] LABS: Glucose,Whole Blood 307 mg/dL (75-99)
[2019-12-14] MEDS ORDERED: AZITHROMYCIN 250 MG TAB PO SCH (09:00)
--- NOTE | 2019-12-14 09:21 | P.PN ---
Subjective Progress Note Date: 12/14/19 This is a 29-year-old gentleman with a known history of insulin-dependent diabetes mellitus, type I. He follows with Dr. Emelia holloway as his primary care provider. He was brought into the emergency room yesterday after his father found him unresponsive at home. He had been known to be using methamphetamines and developed significant nausea and vomiting. They're unclear if he was taking his insulin. He was found to be in DKA with a glucose greater than 1875. PH of 6.86. PCO2 15. Bicarb of 3. White count 27.3. MCV 118. Sodium 151. Potassium 4.7. Bicarb 16. Creatinine 2.28. Urine drug screen positive for methamphetamines and marijuana. He was admitted to the intensive care unit and is seen today in consultation. He is currently awake, restless. He is maintaining O2 saturations in the 90s on room air. He has a 0.9 normal saline at 125 ML's per hour. D5W with 3 A of bicarb at 100 ML's per hour. Insulin at 1 unit per hour. Current lab values reveal a WBC of 26.9. Hemoglobin 14.0. P O2 122. PCO2 42. PH now 7.44 on 28% FiO2. Sodium 158. Potassium 5.0. Chloride 117. Bicarb 28. Anion gap 13. Creatinine 1.31. Glucose 488. On 12/14/2019 patient seen in follow-up in the intensive care unit, he is a lethargic, but easily arousable, room air pulse ox is 97%, patient has been afebrile, vital signs are stable, in sinus mechanism with a controlled rate. Denies any shortness of breath, respirations are nonlabored, lung sounds are clear. Yesterday chest x-ray showed improved aeration with no evident airspace disease. White count is improving, and is down to 15.9 from 26.9 on yesterday's labs, hemoglobin is 12.7, serum sodium is down to 147, patient remains on D5W at a rate of 125, insulin drip is currently at 1.5 units per hour. Potassium is 4.0, chloride is 112, B1 is 30, creatinine is 0.75. No nausea vomiting or diarrhea. Lipase was normal at 32, urinalysis was negative for any sign of infection. Urine drug screen detected methamphetamines and marijuana. Coronavirus was not detected. Cultures have been negative. Anion gap has closed. Roberson catheter is in place, patient is producing urine in the order of 30-75 ML per hour. Objective - Vital Signs Vital signs: Vital Signs Temp 98.9 F 12/14/19 04:00 Pulse 90 12/14/19 07:00 Resp 23 12/14/19 07:00 BP 128/81 12/14/19 06:00 Pulse Ox 97 12/14/19 07:00 Intake & Output 12/13/19 12/14/19 12/14/19 18:59 06:59 18:59 Intake Total 5365.998 8624.825 125 Output Total 1835 575 50 Balance -351.381 5504.825 75 Weight 55.5 kg 57.1 kg Intake: IV 575 1275 125 Dextrose 5% in Water 1, 200 000 ml @ 100 mls/hr IV . [id number] ARUNA with Sodium Bicarb (1 Meq/ml) 150 ml Rx#:[id number] Dextrose 5% in Water 1, 1275 125 000 ml @ 125 mls/hr IV . Q8H ARUNA Rx#:[id number] Sodium Chloride 0.9% 1, 375 000 ml @ 125 mls/hr IV . Q8H ARUNA Rx#:[id number] Intake, IV Titration 581.083 17.825 Amount Dextrose 5% in Water 1, 225 000 ml @ 125 mls/hr IV . Q8H ARUNA Rx#:[id number] Dextrose 5%-0.45% NaCl 1, 350 000 ml @ 50 mls/hr IV . Q20H ARUNA Rx#:[id number] Insulin Regular 100 unit 6.083 17.825 In Sodium Chloride 0.9% 100 ml @ Titrate 5 mls/hr IV .Q20H ARUNA Rx#: [id number] Oral 360 1240 Output: Urine 1835 575 50 Other: Voiding Method Indwelling Catheter Indwelling Catheter - Exam GENERAL EXAM: Lethargic but arousable, 29-year-old thin disheveled young white male, on room air with a pulse ox of 97% comfortable in no apparent distress. HEAD: Normocephalic/atraumatic. EYES: Normal reaction of pupils, equal size. Conjunctiva pink, sclera white. NOSE: Clear with pink turbinates. THROAT: No erythema or exudates. NECK: No masses, no JVD, no thyroid enlargement, no adenopathy. CHEST: No chest wall deformity. Symmetrical expansion. LUNGS: Equal air entry with no crackles, wheeze, rhonchi or dullness. CVS: Regular rate and rhythm, normal S1 and S2, no gallops, no murmurs, no rubs ABDOMEN: Soft, nontender. No hepatosplenomegaly, normal bowel sounds, no guarding or rigidity. EXTREMITIES: No clubbing, no edema, no cyanosis, 2+ pulses and upper and lower extremities. MUSCULOSKELETAL: Muscle strength and tone normal. SPINE: No scoliosis or deformity SKIN: No rashes CENTRAL NERVOUS SYSTEM: Lethargic, arouses to verbal stimulation, responds appropriately No focal deficits, tone is normal in all 4 extremities. - Labs CBC & Chem 7: 12/14/19 04:59 12/14/19 04:59 Labs: Abnormal Lab Results - Last 24 Hours (Table) 12/12/19 12/12/19 12/12/19 Range/Units 16:08 18:19 19:22 WBC (3.8-10.6) k/uL RBC (4.30-5.90) m/uL Hgb (13.0-17.5) gm/dL Sodium (137-145) mmol/L Chloride (98-107) mmol/L Carbon Dioxide (22-30) mmol/L BUN (9-20) mg/dL Glucose (74-99) mg/dL POC Glucose (mg/dL) >600 H >600 H >600 H (75-99) mg/dL Phosphorus (2.5-4.5) mg/dL Magnesium (1.6-2.3) mg/dL Alkaline Phosphatase (38-126) U/L Total Protein (6.3-8.2) g/dL Albumin (3.5-5.0) g/dL 12/13/19 12/13/19 12/13/19 Range/Units 05:07 06:10 06:43 WBC (3.8-10.6) k/uL RBC (4.30-5.90) m/uL Hgb (13.0-17.5) gm/dL Sodium (137-145) mmol/L Chloride (98-107) mmol/L Carbon Dioxide (22-30) mmol/L BUN (9-20) mg/dL Glucose (74-99) mg/dL POC Glucose (mg/dL) 456 H 587 H 449 H (75-99) mg/dL Phosphorus (2.5-4.5) mg/dL Magnesium (1.6-2.3) mg/dL Alkaline Phosphatase (38-126) U/L Total Protein (6.3-8.2) g/dL Albumin (3.5-5.0) g/dL 12/13/19 12/13/19 12/13/19 Range/Units 07:57 10:08 11:04 WBC (3.8-10.6) k/uL RBC (4.30-5.90) m/uL Hgb (13.0-17.5) gm/dL Sodium (137-145) mmol/L Chloride (98-107) mmol/L Carbon Dioxide (22-30) mmol/L BUN (9-20) mg/dL Glucose (74-99) mg/dL POC Glucose (mg/dL) 433 H 505 H 428 H (75-99) mg/dL Phosphorus (2.5-4.5) mg/dL Magnesium (1.6-2.3) mg/dL Alkaline Phosphatase (38-126) U/L Total Protein (6.3-8.2) g/dL Albumin (3.5-5.0) g/dL 12/13/19 12/13/19 12/13/19 Range/Units 12:19 13:05 14:23 WBC (3.8-10.6) k/uL RBC (4.30-5.90) m/uL Hgb (13.0-17.5) gm/dL Sodium (137-145) mmol/L Chloride (98-107) mmol/L Carbon Dioxide (22-30) mmol/L BUN (9-20) mg/dL Glucose (74-99) mg/dL POC Glucose (mg/dL) 368 H 392 H 467 H (75-99) mg/dL Phosphorus (2.5-4.5) mg/dL Magnesium (1.6-2.3) mg/dL Alkaline Phosphatase (38-126) U/L Total Protein (6.3-8.2) g/dL Albumin (3.5-5.0) g/dL 12/13/19 12/13/19 12/13/19 Range/Units 14:58 15:05 16:03 WBC (3.8-10.6) k/uL RBC (4.30-5.90) m/uL Hgb (13.0-17.5) gm/dL Sodium 156 H (137-145) mmol/L Chloride 117 H (98-107) mmol/L Carbon Dioxide (22-30) mmol/L BUN 46 H (9-20) mg/dL Glucose 443 H (74-99) mg/dL POC Glucose (mg/dL) 432 H 417 H (75-99) mg/dL Phosphorus (2.5-4.5) mg/dL Magnesium (1.6-2.3) mg/dL Alkaline Phosphatase (38-126) U/L Total Protein (6.3-8.2) g/dL Albumin (3.5-5.0) g/dL 12/13/19 12/13/19 12/13/19 Range/Units 17:02 17:58 19:02 WBC (3.8-10.6) k/uL RBC (4.30-5.90) m/uL Hgb (13.0-17.5) gm/dL Sodium (137-145) mmol/L Chloride (98-107) mmol/L Carbon Dioxide (22-30) mmol/L BUN (9-20) mg/dL Glucose (74-99) mg/dL POC Glucose (mg/dL) 521 H 489 H 410 H (75-99) mg/dL Phosphorus (2.5-4.5) mg/dL Magnesium (1.6-2.3) mg/dL Alkaline Phosphatase (38-126) U/L Total Protein (6.3-8.2) g/dL Albumin (3.5-5.0) g/dL 12/13/19 12/13/19 12/13/19 Range/Units 19:50 20:02 21:09 WBC (3.8-10.6) k/uL RBC (4.30-5.90) m/uL Hgb (13.0-17.5) gm/dL Sodium 157 H (137-145) mmol/L Chloride 119 H (98-107) mmol/L Carbon Dioxide 21 L (22-30) mmol/L BUN 41 H (9-20) mg/dL Glucose 373 H (74-99) mg/dL POC Glucose (mg/dL) 367 H >600 H (75-99) mg/dL Phosphorus (2.5-4.5) mg/dL Magnesium (1.6-2.3) mg/dL Alkaline Phosphatase (38-126) U/L Total Protein (6.3-8.2) g/dL Albumin (3.5-5.0) g/dL 12/13/19 12/13/19 12/13/19 Range/Units 21:20 21:59 23:01 WBC (3.8-10.6) k/uL RBC (4.30-5.90) m/uL Hgb (13.0-17.5) gm/dL Sodium (137-145) mmol/L Chloride (98-107) mmol/L Carbon Dioxide (22-30) mmol/L BUN (9-20) mg/dL Glucose 407 H (74-99) mg/dL POC Glucose (mg/dL) 379 H 375 H (75-99) mg/dL Phosphorus (2.5-4.5) mg/dL Magnesium (1.6-2.3) mg/dL Alkaline Phosphatase (38-126) U/L Total Protein (6.3-8.2) g/dL Albumin (3.5-5.0) g/dL 12/13/19 12/14/19 12/14/19 Range/Units 23:46 00:57 02:11 WBC (3.8-10.6) k/uL RBC (4.30-5.90) m/uL Hgb (13.0-17.5) gm/dL Sodium (137-145) mmol/L Chloride (98-107) mmol/L Carbon Dioxide (22-30) mmol/L BUN (9-20) mg/dL Glucose (74-99) mg/dL POC Glucose (mg/dL) 333 H 372 H 387 H (75-99) mg/dL Phosphorus (2.5-4.5) mg/dL Magnesium (1.6-2.3) mg/dL Alkaline Phosphatase (38-126) U/L Total Protein (6.3-8.2) g/dL Albumin (3.5-5.0) g/dL 12/14/19 12/14/19 12/14/19 Range/Units 02:57 04:33 04:59 WBC 15.9 H (3.8-10.6) k/uL RBC 4.08 L (4.30-5.90) m/uL Hgb 12.7 L (13.0-17.5) gm/dL Sodium (137-145) mmol/L Chloride (98-107) mmol/L Carbon Dioxide (22-30) mmol/L BUN (9-20) mg/dL Glucose (74-99) mg/dL POC Glucose (mg/dL) 364 H 334 H (75-99) mg/dL Phosphorus (2.5-4.5) mg/dL Magnesium (1.6-2.3) mg/dL Alkaline Phosphatase (38-126) U/L Total Protein (6.3-8.2) g/dL Albumin (3.5-5.0) g/dL 12/14/19 12/14/19 12/14/19 Range/Units 04:59 05:57 08:54 WBC (3.8-10.6) k/uL RBC (4.30-5.90) m/uL Hgb (13.0-17.5) gm/dL Sodium 147 H (137-145) mmol/L Chloride 112 H (98-107) mmol/L Carbon Dioxide (22-30) mmol/L BUN 30 H (9-20) mg/dL Glucose 329 H (74-99) mg/dL POC Glucose (mg/dL) 395 H 307 H (75-99) mg/dL Phosphorus 1.9 L (2.5-4.5) mg/dL Magnesium 2.6 H (1.6-2.3) mg/dL Alkaline Phosphatase 164 H (38-126) U/L Total Protein 5.4 L (6.3-8.2) g/dL Albumin 2.9 L (3.5-5.0) g/dL Microbiology - Last 24 Hours (Table) 12/12/19 19:24 Blood Culture - Preliminary Blood No Growth after 24 hours Assessment and Plan Plan: Assessment: 1 Acute diabetic ketoacidosis secondary to nausea vomiting in a patient with a known history of type 1 diabetes mellitus 2 Acute anion gap metabolic acidosis secondary to above, resolved with fluid resuscitation, and insulin infusion 3 Acute renal failure secondary to above, improved 4 Acute hyperkalemia secondary to above, resolved 5 Hypernatremia, hyperchloremia, improved 6 Leukocytosis, improved 7 Urine drug screen positive for methamphetamines and marijuana Plan: Patient will be started on oral diet today, no nausea or vomiting, patient is producing urine output, renal function is improving, anion gap has closed, vital signs remain stable, no fever or chills, blood cultures are negative, we'll discontinue antibiotics, today's chest x-ray shows no evidence of airspace disease, clinically patient is stable, transition IV insulin to Humalog sliding scale, will monitor patient's oral intake and decide on the amount of basal insulin, will defer for this to the hospitalist service. Otherwise patient is stable, and can be transferred out of intensive care unit today to general medical floor I performed a history & physical examination of the patient and discussed their management with my nurse practitioner, Gypsy León. I reviewed the nurse practitioner's note and agree with the documented findings and plan of care. Lung sounds are positive for clear breath sounds. The findings and the impression was discussed with the patient. I attest to the documentation by the nurse practitioner. Time with Patient: Less than 30
--- NOTE | 2019-12-14 11:22 | PN ---
PROGRESS NOTE Patient is seen for followup for hyponatremia and acute kidney injury. Patient was admitted to the hospital with severe hyperglycemia and acute kidney injury with creatinine at 4.9 on initial admission. His sodium was 121 on initial admission; however, it increased to 137 and 158 yesterday. Serum creatinine has decreased to 0.75 mg/dL with IV hydration and IV fluids were switched to D5W and serum sodium is down to 147 today. Patient's mentation has improved. He is awake. He will be eating and the insulin drip is going to be turned off. PHYSICAL EXAMINATION: On examination today, blood pressure was 120/72, heart rate 80 per minute, he is afebrile. Examination of the heart S1, S2. Examination of lungs, bilateral breath sounds are heard. Abdomen is soft, nontender. Examination of the lower extremities shows no evidence of edema. LIFE CYCLE ASSESSMENT ANALYST exam grossly intact. LABS: Show sodium 147, potassium 4.0, chloride 112, CO2 is 30, BUN 30, creatinine 0.75, phosphorus was 1.9. ASSESSMENT: 1. Acute kidney injury associated with hypotension, hypoperfusion and hypovolemia, currently significantly improved. 2. Hyponatremia, initially associated with severe hyperglycemia; however, serum sodium increased to 158 yesterday. Patient's IV fluids were changed to D5W and his sodium has improved to 147. I will continue with the D5W for now and repeat labs in about 4-5 hours. 3. DKA, now resolved. 4. Mental status changes associated with DKA, severe volume depletion and electrolyte abnormalities, now improved. 5. Anion gap metabolic acidosis associated with DKA, now resolved. 6. Hyperkalemia on initial admission associated with severe hyperglycemia. Renal failure and metabolic acidosis now resolved. PLAN: Continue D5W, repeat sodium at noon. I will most likely decrease the IV fluids. Continue to encourage free water intake. MMODL / IJN: [id number] /
[2019-12-14 11:47] LABS: Glucose,Whole Blood 195 mg/dL (75-99)
[2019-12-14 11:50] VITALS: BMI 18.0
[2019-12-14 12:19] LABS: African American GFR (CKD) >90 (>60 ml/min/1.73 sqM); Anion Gap 5 mmol/L; Blood Urea Nitrogen 23 mg/dL (9-20); Calcium 8.1 mg/dL (8.4-10.2); Carbon Dioxide 31 mmol/L (22-30); Chloride 112 mmol/L (98-107); Glucose 231 mg/dL (74-99); Non-African American GFR(CKD) >90 (>60 ml/min/1.73 sqM); Sodium 148 mmol/L (137-145)
[2019-12-14 12:28] LABS: Potassium 3.8 mmol/L (3.5-5.1)
[2019-12-14] MEDS: INSULIN ASPART (NovoLOG) 100 UNIT/ML VIAL SQ SCH ×5 (13:54→21:03)
[2019-12-14 17:28] LABS: Glucose,Whole Blood 69 mg/dL (75-99)
--- NOTE | 2019-12-14 17:31 | HP ---
HISTORY AND PHYSICAL CHIEF COMPLAINT: DKA and lethargy. HISTORY OF PRESENT ILLNESS: This gentleman presented to the emergency room with a blood sugar of nearly 2000 and he was in DKA. He was transferred to the ICU. Review of systems, past medical history, family history, and personal and social histories can be found in the admitting documents from the hospitalist who received the patient as well as the acetylene cutter. He is NOT KNOWN TO BE ALLERGIC TO ANY MEDICATIONS. He was last seen on November 13 in my office and was on Basaglar 70 units once a day, vitamin D, Admelog 16 units before each meal. It is not known what happened that would have led to his disease becoming so severely uncontrolled. He is not known to be allergic to any medication. He does smoke a pack of cigarettes a day. PHYSICAL EXAMINATION: He was very asthenic, dehydrated and chronically ill in appearance. Head, ears, eyes, nose, mouth and throat were normal. The chest was clear. Cardiac exam demonstrated sinus rhythm and no murmurs. The abdomen was flat and there were no masses or visceromegaly. Extremities were normal. Neurologically he was intact. IMPRESSION: 1. Diabetic ketoacidosis. 2. Type 1 insulin-dependent diabetes mellitus. 3. Nicotine abuse. PLAN: Continue with DKA management and improvement of his acid-base balance, closing his anion gap and rehydrating. MMODL / IJN: [id number] /
[2019-12-14 17:39] LABS: Glucose,Whole Blood 76 mg/dL (75-99)
--- NOTE | 2019-12-14 18:19 | PN ---
PROGRESS NOTE DATE OF SERVICE: 12/14/2019. CHIEF COMPLAINT: DKA. HISTORY OF PRESENT ILLNESS: This gentleman is doing much better. Laboratory studies are improving. Vital signs are normal. He is awake and alert. He stills states that he feels weak and has a poor appetite. PHYSICAL EXAMINATION: Blood pressure is 106/62 with a pulse of 83, respirations of 32. In general he appeared to be slender and in no acute distress. Chest was clear. Cardiac exam was normal. The abdomen was flat, soft and nontender. Extremities were normal. IMPRESSION: 1. Diabetic ketoacidosis. 2. Dehydration. PLAN: Continue with IV fluids and start him back on basal bolus insulin management along with scale. MMODL / IJN: [id number] /
[2019-12-14 20:26] LABS: Glucose,Whole Blood 244 mg/dL (75-99)
[2019-12-14 20:35] LABS: Glucose,Whole Blood 271 mg/dL (75-99)
[2019-12-14] MEDS: DEXTROSE 5% IN WATER 1,000 ML IV SCH ×2 (21:03→23:25)
[2019-12-14 21:35] VITALS: RESP 16
[2019-12-14 22:45] LABS: African American GFR (CKD) >90 (>60 ml/min/1.73 sqM); Anion Gap 4 mmol/L; Blood Urea Nitrogen 17 mg/dL (9-20); Calcium 8.2 mg/dL (8.4-10.2); Carbon Dioxide 31 mmol/L (22-30); Chloride 105 mmol/L (98-107); Glucose 377 mg/dL (74-99); Non-African American GFR(CKD) >90 (>60 ml/min/1.73 sqM); Potassium 3.4 mmol/L (3.5-5.1); Sodium 140 mmol/L (137-145)
[2019-12-15] MEDS: DEXTROSE 5%-0.45% NACL 1,000 ML IV SCH ×2 (01:52→10:38)
[2019-12-15 02:18] LABS: Glucose,Whole Blood 368 mg/dL (75-99)
[2019-12-15] MEDS ORDERED: INSULIN ASPART (NovoLOG) 100 UNIT/ML VIAL SQ ONE (03:06)
[2019-12-15 06:56] LABS: Glucose,Whole Blood 258 mg/dL (75-99)
[2019-12-15] MEDS ORDERED: INSULIN DETEMIR (LEVEMIR) 100 UNIT/ML SYR SQ SCH (07:00)
[2019-12-15 07:57] VITALS: BP 129/82; PULSE 77; TEMP 98.5
[2019-12-15] MEDS: INSULIN ASPART (NovoLOG) 100 UNIT/ML VIAL SQ SCH ×3 (08:00→12:59)
[2019-12-15 11:18] LABS: Glucose,Whole Blood 206 mg/dL (75-99)
--- NOTE | 2019-12-15 13:45 | P.PN ---
Subjective Patient is seen in follow-up for acute kidney injury. GFR is back to baseline. Oral intake is good. Denies vomiting or diarrhea. Sodium level 140 as of last night. He is maintained on half-normal saline. Oral intake is good. Vital signs are stable. General: The patient appeared well nourished and normally developed. HEENT: Head exam is unremarkable. Neck is without jugular venous distension. LUNGS: Lungs are clear to auscultation and percussion. Breath sounds decreased. HEART: Rate and Rhythm are regular. ABDOMEN: Soft, nontender. EXTREMITITES: No clubbing, cyanosis, or edema. Objective - Vital Signs Vital signs: Vital Signs Temp 98.5 F 12/15/19 07:00 Pulse 77 12/15/19 07:00 Resp 16 12/15/19 07:00 BP 129/82 12/15/19 07:00 Pulse Ox 97 12/15/19 07:00 Intake & Output 12/14/19 12/15/19 12/15/19 18:59 06:59 18:59 Intake Total 1625 Output Total 505 2500 Balance 1120 -2500 Weight 57.1 kg Intake: IV 875 Dextrose 5% in Water 1, 875 000 ml @ 125 mls/hr IV . Q8H ARUNA Rx#:[id number] Intake, IV Titration 250 Amount Potassium Phosphate 10 250 mmol In Sodium Chloride 0 .9% 250 ml @ 125 mls/hr IV Q2H ARUNA Rx#:[id number] Oral 500 Output: Urine 505 2500 Other: Voiding Method Indwelling Catheter Urinal - Labs CBC & Chem 7: 12/14/19 04:59 12/14/19 22:17 Labs: Abnormal Lab Results - Last 24 Hours (Table) 12/14/19 12/14/19 12/14/19 Range/Units 17:20 20:25 20:34 Potassium (3.5-5.1) mmol/L Carbon Dioxide (22-30) mmol/L Creatinine (0.66-1.25) mg/dL Glucose (74-99) mg/dL POC Glucose (mg/dL) 69 L 244 H 271 H (75-99) mg/dL Calcium (8.4-10.2) mg/dL 12/14/19 12/15/19 12/15/19 Range/Units 22:17 02:18 06:53 Potassium 3.4 L (3.5-5.1) mmol/L Carbon Dioxide 31 H (22-30) mmol/L Creatinine 0.53 L (0.66-1.25) mg/dL Glucose 377 H (74-99) mg/dL POC Glucose (mg/dL) 368 H 258 H (75-99) mg/dL Calcium 8.2 L (8.4-10.2) mg/dL 12/15/19 Range/Units 11:16 Potassium (3.5-5.1) mmol/L Carbon Dioxide (22-30) mmol/L Creatinine (0.66-1.25) mg/dL Glucose (74-99) mg/dL POC Glucose (mg/dL) 206 H (75-99) mg/dL Calcium (8.4-10.2) mg/dL Microbiology - Last 24 Hours (Table) 12/12/19 19:24 Blood Culture - Preliminary Blood No Growth after 48 hours Assessment and Plan Plan: Assessment: 1. Acute kidney injury mostly prerenal secondary to intravascular volume depletion secondary to DKA. Resolved. 2. Hypernatremia secondary to severe dehydration due to hyperglycemia. Improved. 3. DKA, resolved. 4. Hyperkalemia secondary to hyperglycemia. Resolved. Plan: Stable for discharge from nephrology standpoint. Advised tight blood sugar control. Follow-up outpatient in 2 weeks.
--- NOTE | 2019-12-15 17:02 | DS ---
DISCHARGE SUMMARY CHIEF COMPLAINT: DKA. HISTORY OF PRESENT ILLNESS AND PHYSICAL EXAM: Details of this man's history and physical can be found in the initial workup. LABORATORY STUDIES: Laboratory studies can be found in the laboratory section of chart. COURSE IN HOSPITAL: After admission he was placed on bedrest in ICU and treated for his profound ketoacidosis. Blood sugars came down. The electrolytes were corrected as well as his acid-base balance and he did well. He was stable enough to have a go home on the and he will be sent home on Basaglar 50 units once a day and Admelog 10 units before meals and will be seen in several days. FINAL DIAGNOSES: 1. Diabetic ketoacidosis. 2. Type 1 insulin-dependent diabetes with poor control due to poor compliance. OPERATIONS: None. CONSULTATIONS: Intensive medicine. He is improved. MMMARQUITAL / ELMAN: [id number] /
[2019-12-16] MEDS ORDERED: INSULIN DETEMIR (LEVEMIR) 100 UNIT/ML SYR SQ SCH (07:00)
== END 2019-12-15 13:18 | disposition home or self-care (01) | DRG 637 ==
LOC: EC 16:00 → 2SICU 18:52 → 4SSUR 12-14 14:13
PROVIDERS: ADMIT Family Medicine; ATTEND Family Medicine
DX: E10.10 Type 1 diabetes mellitus with ketoacidosis without coma (principal); G92 Toxic encephalopathy; N17.9 Acute kidney failure, unspecified; E87.0 Hyperosmolality and hypernatremia; M19.90 Unspecified osteoarthritis, unspecified site; G43.909 Migraine, unspecified, not intractable, without status migrainosus; E86.0 Dehydration; F17.210 Nicotine dependence, cigarettes, uncomplicated; F31.9 Bipolar disorder, unspecified; F41.9 Anxiety disorder, unspecified; E87.5 Hyperkalemia; E83.41 Hypermagnesemia; E86.1 Hypovolemia; R94.31 Abnormal electrocardiogram [ECG] [EKG]; F15.10 Other stimulant abuse, uncomplicated; E87.8 Other disorders of electrolyte and fluid balance, not elsewhere classified; E10.43 Type 1 diabetes mellitus with diabetic autonomic (poly)neuropathy; J45.909 Unspecified asthma, uncomplicated; K31.84 Gastroparesis; Z11.59 Encounter for screening for other viral diseases; R74.0 Nonspecific elevation of levels of transaminase and lactic acid dehydrogenase [LDH]; Z91.040 Latex allergy status; Z86.14 Personal history of Methicillin resistant Staphylococcus aureus infection; Z98.890 Other specified postprocedural states; Z82.49 Family history of ischemic heart disease and other diseases of the circulatory system; Z82.5 Family history of asthma and other chronic lower respiratory diseases; Z83.438 Family history of other disorder of lipoprotein metabolism and other lipidemia; Z79.4 Long term (current) use of insulin
CPT/HCPCS: 36415; 36600; 70450; 71045; 72125; 80048; 80053; 80306; 80320; 80329; 81003; 82009; 82140; 82553; 82805; 82947; 83520; 83690; 83735; 84100; 84439; 84443; 84484; 85025; 85027; 85610; 85730; 87040; 94640; 96361; 96374; 96375; 99285

== ENCOUNTER 2019-12-19 06:05 | Observation (INO) | payer OTHER ==
[2019-12-19 06:12] LABS: Glucose,Whole Blood 423 mg/dL (75-99)
[2019-12-19] MEDS ORDERED: SODIUM CHLORIDE 0.9% 2,000 ML IV STA (06:17)
[2019-12-19] MEDS ORDERED: ONDANSETRON 4 MG/2 ML VIAL IVP STA (06:24)
--- NOTE | 2019-12-19 06:29 | ED ---
General Adult HPI - General Chief complaint: Abdominal Pain Stated complaint: Abd Pain Time Seen by Provider: 12/19/19 06:17 Source: patient, RN notes reviewed Mode of arrival: ambulatory Limitations: no limitations - History of Present Illness Initial comments: 29-year-old male with a past medical history of type 1 insulin-dependent diabetes mellitus, diabetic gastroparesis, asthma presents to the emergency room for a chief complaint of not feeling well. Patient states that he was discharged home from the hospital after being a diabetic coma. states he was discharged home about 4 days ago. States he is just not felt well since that time. States he has been nauseous and having mild abdominal pain. States he did vomit this morning. Patient states he has been taking his insulin as directed. States his glucose has been running in the 200s to the 300s.Patient has no other complaints at this time including shortness of breath, chest pain, abdominal pain, nausea or vomiting, headache, or visual changes. - Related Data Previous Rx's Medication Instructions Recorded INSULIN ASPART (NovoLOG) [NovoLOG 10 unit SQ AC-TID #90 vial 12/22/19 (formulary)] Insulin Detemir (Levemir) [Levemir] 44 unit SQ DAILY@0700 #30 syr 12/22/19 Allergies Allergy/AdvReac Type Severity Reaction Status Date / Time latex Allergy Rash/Hives Verified 12/19/19 07:05 Review of Systems ROS Statement: Those systems with pertinent positive or pertinent negative responses have been documented in the HPI. ROS Other: All systems not noted in ROS Statement are negative. Past Medical History Past Medical History: Asthma, Diabetes Mellitus, Osteoarthritis (OA) Additional Past Medical History / Comment(s): IDDM type I, diabetic gastroparesis, neuropathy bilateral hands/fingers, migraines, arthrtitis fingers/knees, past R hand and L femur fractures. History of Any Multi-Drug Resistant Organisms: MRSA Date of last positivie culture/infection: 04/26/2014 MDRO Source:: Face Past Surgical History: Ear Surgery, Orthopedic Surgery Additional Past Surgical History / Comment(s): R hand surgery d/t fracture- pinned and pins since removed, L leg femur fracture with pin that eventually was removed, bilateral myringotomy with tubes/ear drum repairs. Past Anesthesia/Blood Transfusion Reactions: No Reported Reaction Past Psychological History: Anxiety, Bipolar, Depression Smoking Status: Current every day smoker Past Alcohol Use History: None Reported Past Drug Use History: Marijuana - Past Family History Father Family Medical History: Hyperlipidemia, Hypertension Mother Family Medical History: COPD Additional Family Medical History / Comment(s): home O2, Brother(s) Family Medical History: No Reported History General Exam Limitations: no limitations General appearance: alert, in no apparent distress Head exam: Present: atraumatic, normocephalic, normal inspection Eye exam: Present: normal appearance, PERRL, EOMI. Absent: scleral icterus, conjunctival injection, periorbital swelling ENT exam: Present: normal exam, mucous membranes moist Neck exam: Present: normal inspection, full ROM. Absent: tenderness, meningismus, lymphadenopathy Respiratory exam: Present: normal lung sounds bilaterally. Absent: respiratory distress, wheezes, rales, rhonchi, stridor Cardiovascular Exam: Present: regular rate, normal rhythm, normal heart sounds. Absent: systolic murmur, diastolic murmur, rubs, gallop, clicks GI/Abdominal exam: Present: soft, normal bowel sounds. Absent: distended, tenderness, guarding, rebound, rigid Neurological exam: Present: alert, oriented X3, normal gait, other (GCS 15) Course Vital Signs 12/19/19 12/19/19 06:06 06:40 Temperature 97.5 F L Pulse Rate 85 79 Respiratory 18 20 Rate Blood Pressure 148/93 154/96 O2 Sat by Pulse 98 99 Oximetry Medical Decision Making - Medical Decision Making Vitals are stable. Anion gap is 14 and glucose is 484. pAtient was found to have 3+ ketone was with a positive acetone. Given patient is vomiting he was admitted for fluid resuscitation and glucose control. - Lab Data Result diagrams: 12/21/19 08:00 12/21/19 08:00 Lab Results 12/19/19 12/19/19 12/19/19 Range/Units 06:09 06:24 06:24 WBC 10.3 (3.8-10.6) k/uL RBC 5.23 (4.30-5.90) m/uL Hgb 16.4 D (13.0-17.5) gm/dL Hct 50.8 (39.0-53.0) % MCV 97.0 (80.0-100.0) fL MCH 31.3 (25.0-35.0) pg MCHC 32.3 (31.0-37.0) g/dL RDW 13.4 (11.5-15.5) % Plt Count 389 (150-450) k/uL Neutrophils % 55 % Lymphocytes % 32 % Monocytes % 6 % Eosinophils % 2 % Basophils % 1 % Neutrophils # 5.7 (1.3-7.7) k/uL Lymphocytes # 3.3 (1.0-4.8) k/uL Monocytes # 0.7 (0-1.0) k/uL Eosinophils # 0.2 (0-0.7) k/uL Basophils # 0.1 (0-0.2) k/uL Sodium 137 (137-145) mmol/L Potassium 5.3 H (3.5-5.1) mmol/L Chloride 100 (98-107) mmol/L Carbon Dioxide 23 (22-30) mmol/L Anion Gap 14 mmol/L BUN 24 H (9-20) mg/dL Creatinine 0.60 L (0.66-1.25) mg/dL Est GFR (CKD-EPI)AfAm >90 (>60 ml/min/1.73 sqM) Est GFR (CKD-EPI)NonAf >90 (>60 ml/min/1.73 sqM) Glucose 484 H (74-99) mg/dL POC Glucose (mg/dL) 423 H (75-99) mg/dL POC Glu [place] [address] Glu mg/dL Hemoglobin A1c (4.0-6.0) % Calcium 9.0 (8.4-10.2) mg/dL Total Bilirubin 1.0 (0.2-1.3) mg/dL AST 46 (17-59) U/L ALT 61 H (4-49) U/L Alkaline Phosphatase 203 H (38-126) U/L Total Protein 6.7 (6.3-8.2) g/dL Albumin 3.8 (3.5-5.0) g/dL Amylase 84 (30-110) U/L Lipase 103 (23-300) U/L Urine Color Urine Appearance (Clear) Urine pH (5.0-8.0) Ur Specific [place] (1.001-1.035) Urine Protein (Negative) Urine Glucose (UA) (Negative) Urine Ketones (Negative) Urine Blood (Negative) Urine Nitrite (Negative) Urine Bilirubin (Negative) Urine Urobilinogen (<2.0) mg/dL Ur Leukocyte Esterase (Negative) Acetone, Qual Positive (Negative) 12/19/19 12/19/19 12/19/19 Range/Units 06:24 06:35 07:14 WBC (3.8-10.6) k/uL RBC (4.30-5.90) m/uL Hgb (13.0-17.5) gm/dL Hct (39.0-53.0) % MCV (80.0-100.0) fL MCH (25.0-35.0) pg MCHC (31.0-37.0) g/dL RDW (11.5-15.5) % Plt Count (150-450) k/uL Neutrophils % % Lymphocytes % % Monocytes % % Eosinophils % % Basophils % % Neutrophils # (1.3-7.7) k/uL Lymphocytes # (1.0-4.8) k/uL Monocytes # (0-1.0) k/uL Eosinophils # (0-0.7) k/uL Basophils # (0-0.2) k/uL Sodium (137-145) mmol/L Potassium (3.5-5.1) mmol/L Chloride (98-107) mmol/L Carbon Dioxide (22-30) mmol/L Anion Gap mmol/L BUN (9-20) mg/dL Creatinine (0.66-1.25) mg/dL Est GFR (CKD-EPI)AfAm (>60 ml/min/1.73 sqM) Est GFR (CKD-EPI)NonAf (>60 ml/min/1.73 sqM) Glucose (74-99) mg/dL POC Glucose (mg/dL) 444 H (75-99) mg/dL POC Glu [place] ID [address] Glu mg/dL 321 Hemoglobin A1c 12.8 H (4.0-6.0) % Calcium (8.4-10.2) mg/dL Total Bilirubin (0.2-1.3) mg/dL AST (17-59) U/L ALT (4-49) U/L Alkaline Phosphatase (38-126) U/L Total Protein (6.3-8.2) g/dL Albumin (3.5-5.0) g/dL Amylase (30-110) U/L Lipase (23-300) U/L Urine Color Yellow Urine Appearance Clear (Clear) Urine pH 6.5 (5.0-8.0) Ur Specific [place] 1.032 (1.001-1.035) Urine Protein Negative (Negative) Urine Glucose (UA) 4+ H (Negative) Urine Ketones 3+ H (Negative) Urine Blood Negative (Negative) Urine Nitrite Negative (Negative) Urine Bilirubin Negative (Negative) Urine Urobilinogen <2.0 (<2.0) mg/dL Ur Leukocyte Esterase Negative (Negative) Acetone, Qual (Negative) 12/19/19 Range/Units 08:17 WBC (3.8-10.6) k/uL RBC (4.30-5.90) m/uL Hgb (13.0-17.5) gm/dL Hct (39.0-53.0) % MCV (80.0-100.0) fL MCH (25.0-35.0) pg MCHC (31.0-37.0) g/dL RDW (11.5-15.5) % Plt Count (150-450) k/uL Neutrophils % % Lymphocytes % % Monocytes % % Eosinophils % % Basophils % % Neutrophils # (1.3-7.7) k/uL Lymphocytes # (1.0-4.8) k/uL Monocytes # (0-1.0) k/uL Eosinophils # (0-0.7) k/uL Basophils # (0-0.2) k/uL Sodium (137-145) mmol/L Potassium (3.5-5.1) mmol/L Chloride (98-107) mmol/L Carbon Dioxide (22-30) mmol/L Anion Gap mmol/L BUN (9-20) mg/dL Creatinine (0.66-1.25) mg/dL Est GFR (CKD-EPI)AfAm (>60 ml/min/1.73 sqM) Est GFR (CKD-EPI)NonAf (>60 ml/min/1.73 sqM) Glucose (74-99) mg/dL POC Glucose (mg/dL) 412 H (75-99) mg/dL POC Glu [place] ID [address] Glu mg/dL Hemoglobin A1c (4.0-6.0) % Calcium (8.4-10.2) mg/dL Total Bilirubin (0.2-1.3) mg/dL AST (17-59) U/L ALT (4-49) U/L Alkaline Phosphatase (38-126) U/L Total Protein (6.3-8.2) g/dL Albumin (3.5-5.0) g/dL Amylase (30-110) U/L Lipase (23-300) U/L Urine Color Urine Appearance (Clear) Urine pH (5.0-8.0) Ur Specific [place] (1.001-1.035) Urine Protein (Negative) Urine Glucose (UA) (Negative) Urine Ketones (Negative) Urine Blood (Negative) Urine Nitrite (Negative) Urine Bilirubin (Negative) Urine Urobilinogen (<2.0) mg/dL Ur Leukocyte Esterase (Negative) Acetone, Qual (Negative) Disposition Clinical Impression: Intractable nausea and vomiting, Hyperglycemia Disposition: ADMITTED IP TO THIS [facility] Condition: Serious Time of Disposition: 02:28
[2019-12-19 06:40] LABS: Appearance,Urine Clear (Clear); Bilirubin,Urine Negative (Negative); Blood,Urine Negative (Negative); Color,Urine Yellow; Glucose,Urine (UA) 4+ (Negative); Leukocyte Esterase,Urine Negative (Negative); Nitrite,Urine Negative (Negative); PH, Urine 6.5 (5.0-8.0); Protein,Urine Negative (Negative); Specific Gravity,Urine 1.032 (1.001-1.035); Urobilinogen,Urine <2.0 mg/dL (<2.0)
[2019-12-19 06:42] LABS: African American GFR (CKD) >90 (>60 ml/min/1.73 sqM); Albumin 3.8 g/dL (3.5-5.0); Amylase 84 U/L (30-110); Anion Gap 14 mmol/L; Carbon Dioxide 23 mmol/L (22-30); Chloride 100 mmol/L (98-107); Glucose 484 mg/dL (74-99); Non-African American GFR(CKD) >90 (>60 ml/min/1.73 sqM); Potassium 5.3 mmol/L (3.5-5.1); Sodium 137 mmol/L (137-145); Total Protein 6.7 g/dL (6.3-8.2)
[2019-12-19 06:43] LABS: ALT 61 U/L (4-49); AST 46 U/L (17-59); Alkaline Phosphatase 203 U/L (38-126); Blood Urea Nitrogen 24 mg/dL (9-20)
[2019-12-19 06:52] LABS: Basophils # (A) 0.1 k/uL (0-0.2); Basophils % (A) 1 %; Eosinophils # (A) 0.2 k/uL (0-0.7); Eosinophils % (A) 2 %; HCT 50.8 % (39.0-53.0); HGB 16.4 gm/dL (13.0-17.5); Lymphocytes # (A) 3.3 k/uL (1.0-4.8); Lymphocytes % (A) 32 %; MCH 31.3 pg (25.0-35.0); MCHC 32.3 g/dL (31.0-37.0); Mean Platelet Volume 8.8; Monocytes # (A) 0.7 k/uL (0-1.0); Monocytes % (A) 6 %; Neutrophils # (A) 5.7 k/uL (1.3-7.7); Neutrophils % (A) 55 %; Platelet Count 389 k/uL (150-450); RBC 5.23 m/uL (4.30-5.90); RDW 13.4 % (11.5-15.5); WBC 10.3 k/uL (3.8-10.6)
[2019-12-19 06:59] LABS: Ketones,Urine 3+ (Negative)
[2019-12-19] MEDS ORDERED: INSULIN REGULAR 100 UNIT/ML VIAL IV STA (07:09)
[2019-12-19 07:16] LABS: Glucose,Whole Blood 444 mg/dL (75-99)
[2019-12-19] MEDS ORDERED: Potassium Replacement Protocol 1 EACH MISC MISCELLANE PRN (07:35)
[2019-12-19] MEDS ORDERED: Magnesium Replacement Protocol 1 EACH MISC MISCELLANE PRN (07:35)
[2019-12-19] MEDS ORDERED: NALOXONE 0.4 MG/ML 1 ML VIAL IV PRN (07:37)
[2019-12-19] MEDS ORDERED: INSULIN REGULAR 100 UNIT in SODIUM CHLORIDE 0.9% 100 ML IV SCH (07:45)
[2019-12-19 08:19] LABS: Glucose,Whole Blood 412 mg/dL (75-99)
[2019-12-19] MEDS: SODIUM CHLORIDE 0.9% 1,000 ML IV SCH ×4 (08:34→20:42)
[2019-12-19 09:06] LABS: Glucose,Whole Blood 318 mg/dL (75-99)
[2019-12-19 09:37] LABS: Glucose,Whole Blood 312 mg/dL (75-99)
[2019-12-19 10:12] LABS: Glucose,Whole Blood 182 mg/dL (75-99)
[2019-12-19 10:46] LABS: African American GFR (CKD) >90 (>60 ml/min/1.73 sqM); Anion Gap 12 mmol/L; Blood Urea Nitrogen 22 mg/dL (9-20); Carbon Dioxide 21 mmol/L (22-30); Chloride 108 mmol/L (98-107); Glucose 193 mg/dL (74-99); Non-African American GFR(CKD) >90 (>60 ml/min/1.73 sqM); Phosphorus 2.1 mg/dL (2.5-4.5); Potassium 4.2 mmol/L (3.5-5.1); Sodium 141 mmol/L (137-145)
[2019-12-19 12:17] LABS: Glucose,Whole Blood 115 mg/dL (75-99)
[2019-12-19 14:12] LABS: Glucose,Whole Blood 83 mg/dL (75-99)
[2019-12-19 14:31] LABS: African American GFR (CKD) >90 (>60 ml/min/1.73 sqM); Anion Gap 4 mmol/L; Blood Urea Nitrogen 17 mg/dL (9-20); Carbon Dioxide 27 mmol/L (22-30); Chloride 106 mmol/L (98-107); Glucose 94 mg/dL (74-99); Non-African American GFR(CKD) >90 (>60 ml/min/1.73 sqM); Phosphorus 2.2 mg/dL (2.5-4.5); Potassium 4.1 mmol/L (3.5-5.1); Sodium 137 mmol/L (137-145)
[2019-12-19 14:45] LABS: Glucose,Whole Blood 109 mg/dL (75-99)
--- NOTE | 2019-12-19 16:00 | HP ---
HISTORY AND PHYSICAL CHIEF COMPLAINT: Uncontrolled diabetes and DKA. HISTORY OF PRESENT ILLNESS: This is another admission in the last week or so for this 29-year-old white male. He came in acutely ill with severe DKA about a week or 10 days ago. He went home on a basal bolus program and then suddenly came back into the emergency room, in difficulty again. He had not followed up in the office. In the emergency room, his blood sugar was 423. Electrolytes were normal except for a carbon dioxide of 21. REVIEW OF SYSTEMS: He is having no other complaints except for nausea and vomiting. Past medical history, family history, and personal and social histories are unchanged from his recent admitting and discharge summaries. ALLERGIES: LATEX. He is supposed to have been on Levemir and Lantus 40 units once a day and Lispro 14 units before meals. PHYSICAL EXAMINATION: Blood pressure is 154/96 with a pulse 79 and regular, respirations of 35, and he is afebrile. In general he appeared to be slender, poorly nourished. Skin color is normal. Skin is dry. Lymph nodes are not enlarged. Head, ears, eyes, nose, mouth and throat are normal except for dry mucous membranes. Neck is supple. Chest is clear. Cardiac exam is normal with sinus rhythm. Abdomen is flat, soft, nontender. Bowel sounds are present. Extremities are normal. Neurologically he is intact. He is admitted to the hospital with the diagnoses: 1. Diabetic ketoacidosis. 2. Dehydration. 3. Hypertension. PLAN: 1. Bed rest. 2. IV fluids. 3. Correct acid/base balance. 4. Correct blood sugars. 5. Discharge on NIVIA inhibitor or ARB. MMODL / IJN: [id number] /
[2019-12-19 17:10] LABS: Glucose,Whole Blood 274 mg/dL (75-99)
[2019-12-19] MEDS ORDERED: INSULIN LISPRO (For Pump) 100 UNIT/ML VIAL SQ-PUMP SCH (17:30)
[2019-12-19 19:12] LABS: Glucose,Whole Blood 187 mg/dL (75-99)
[2019-12-19 20:16] LABS: Glucose,Whole Blood 150 mg/dL (75-99)
[2019-12-20] MEDS: SODIUM CHLORIDE 0.9% 1,000 ML IV SCH ×5 (04:19→22:56)
[2019-12-20] MEDS ORDERED: INSULIN DETEMIR (LEVEMIR) 100 UNIT/ML SYR SQ SCH ×2 (07:00→21:00)
[2019-12-20] MEDS ORDERED: INSULIN ASPART (NovoLOG) 100 UNIT/ML VIAL SQ SCH (07:30)
[2019-12-20] MEDS: INSULIN ASPART (NovoLOG) 100 UNIT/ML VIAL SQ SCH ×6 (08:47→20:52)
[2019-12-20] MEDS: ONDANSETRON 4 MG/2 ML VIAL IVP PRN ×2 (08:58→21:26)
[2019-12-20 09:03] LABS: Glucose,Whole Blood 566 mg/dL (75-99)
[2019-12-20 10:19] LABS: Glucose,Whole Blood 381 mg/dL (75-99)
[2019-12-20 12:09] LABS: Glucose,Whole Blood 214 mg/dL (75-99)
[2019-12-20 17:11] LABS: Glucose,Whole Blood 94 mg/dL (75-99)
[2019-12-20 19:57] LABS: Hemoglobin A1C 12.8 % (4.0-6.0)
[2019-12-20 20:50] LABS: Glucose,Whole Blood 64 mg/dL (75-99)
[2019-12-20 21:19] LABS: Glucose,Whole Blood 78 mg/dL (75-99)
[2019-12-21 02:03] LABS: Glucose,Whole Blood 60 mg/dL (75-99)
[2019-12-21 02:21] LABS: Glucose,Whole Blood 57 mg/dL (75-99)
[2019-12-21 02:21] LABS: Glucose,Whole Blood 58 mg/dL (75-99)
[2019-12-21 02:45] LABS: Glucose,Whole Blood 106 mg/dL (75-99)
[2019-12-21] MEDS: SODIUM CHLORIDE 0.9% 1,000 ML IV SCH ×3 (04:02→16:05)
[2019-12-21 06:18] LABS: Glucose,Whole Blood 39 mg/dL (75-99)
[2019-12-21 06:18] LABS: Glucose,Whole Blood 35 mg/dL (75-99)
[2019-12-21 06:33] LABS: Glucose,Whole Blood 45 mg/dL (75-99)
[2019-12-21] MEDS ORDERED: DEXTROSE 50% SYRINGE 50 ML IVP ONE (06:33)
[2019-12-21 06:49] LABS: Glucose,Whole Blood 171 mg/dL (75-99)
[2019-12-21] MEDS: INSULIN ASPART (NovoLOG) 100 UNIT/ML VIAL SQ SCH ×7 (06:59→20:21)
[2019-12-21 07:32] LABS: Glucose,Whole Blood 238 mg/dL (75-99)
[2019-12-21 09:27] LABS: African American GFR (CKD) >90 (>60 ml/min/1.73 sqM); Anion Gap 6 mmol/L; Basophils % (A) 0 %; Blood Urea Nitrogen 8 mg/dL (9-20); Calcium 7.7 mg/dL (8.4-10.2); Carbon Dioxide 27 mmol/L (22-30); Chloride 103 mmol/L (98-107); Eosinophils # (A) 0.1 k/uL (0-0.7); Eosinophils % (A) 1 %; Glucose 110 mg/dL (74-99); Lymphocytes % (A) 20 %; MCH 31.5 pg (25.0-35.0); MCHC 32.6 g/dL (31.0-37.0); MCV 96.6 fL (80.0-100.0); Mean Platelet Volume 7.9; Monocytes % (A) 10 %; Neutrophils # (A) 6.6 k/uL (1.3-7.7); Neutrophils % (A) 67 %; Non-African American GFR(CKD) >90 (>60 ml/min/1.73 sqM); Platelet Count 539 k/uL (150-450); Potassium 3.5 mmol/L (3.5-5.1); RBC 3.93 m/uL (4.30-5.90); RDW 13.2 % (11.5-15.5); Sodium 136 mmol/L (137-145); WBC 9.9 k/uL (3.8-10.6)
[2019-12-21 09:30] LABS: HGB 12.4 gm/dL (13.0-17.5)
[2019-12-21 10:58] LABS: Glucose,Whole Blood 47 mg/dL (75-99)
[2019-12-21 11:18] LABS: Glucose,Whole Blood 46 mg/dL (75-99)
[2019-12-21 11:34] LABS: Glucose,Whole Blood 72 mg/dL (75-99)
--- NOTE | 2019-12-21 13:02 | PN ---
PROGRESS NOTE DATE OF SERVICE: 12/20/2019. CHIEF COMPLAINT: DKA. HISTORY OF PRESENT ILLNESS: This gentleman is doing well and feeling well, but his blood sugar went up to 560. We will cancel his discharge. PHYSICAL EXAM: Cardiac exam is normal. Chest is clear. The abdomen is soft, nontender. Extremities are normal. Neurologically, he is intact. IMPRESSION: Diabetic ketoacidosis. PLAN: Increase the Lantus by 20 units and reassess tomorrow for hopeful discharge. MMODL / IJN: [id number] /
--- NOTE | 2019-12-21 13:14 | PN ---
PROGRESS NOTE DATE OF SERVICE: 12/21/2019 CHIEF COMPLAINT: Uncontrolled diabetes. HISTORY OF PRESENT ILLNESS: It was hoped that this man could be discharged this morning, but his blood sugar dropped to 30. He was given an amp of glucose and it has come back up and he is eating. His Levemir will be cut down by 10 units today and his discharge will be canceled. PHYSICAL EXAM: Remains asthenic. Hydration is improved. Chest is clear. Cardiac exam is normal. Abdomen is soft, nontender. IMPRESSION: 1. Uncontrolled insulin-dependent diabetes mellitus. 2. Ketoacidosis. 3. Noncompliance. 4. Hypoglycemia. PLAN: Readjust insulin and hopefully discharge tomorrow. MMODL / IJN: [id number] /
[2019-12-21 13:15] VITALS: BMI 17.6
[2019-12-21 17:07] LABS: Glucose,Whole Blood 68 mg/dL (75-99)
[2019-12-21 17:26] LABS: Glucose,Whole Blood 282 mg/dL (75-99)
[2019-12-21 17:29] LABS: Glucose,Whole Blood 70 mg/dL (75-99)
[2019-12-21 19:51] LABS: Glucose,Whole Blood 213 mg/dL (75-99)
[2019-12-21] MEDS ORDERED: INSULIN DETEMIR (LEVEMIR) 100 UNIT/ML SYR SQ SCH (21:00)
[2019-12-22 02:54] LABS: Glucose,Whole Blood 38 mg/dL (75-99)
[2019-12-22 03:16] LABS: Glucose,Whole Blood 76 mg/dL (75-99)
[2019-12-22 06:14] LABS: Glucose,Whole Blood 55 mg/dL (75-99)
[2019-12-22 06:32] LABS: Glucose,Whole Blood 61 mg/dL (75-99)
[2019-12-22] MEDS: INSULIN ASPART (NovoLOG) 100 UNIT/ML VIAL SQ SCH ×2 (06:39→06:40)
[2019-12-22 06:50] LABS: Glucose,Whole Blood 93 mg/dL (75-99)
[2019-12-22 08:29] VITALS: BP 120/74; PULSE 91; RESP 18; TEMP 98.7
[2019-12-22] MEDS ORDERED: INSULIN ASPART (NovoLOG) 100 UNIT/ML VIAL SQ SCH (12:30)
[2019-12-23] MEDS ORDERED: INSULIN DETEMIR (LEVEMIR) 100 UNIT/ML SYR SQ SCH (07:00)
--- NOTE | 2019-12-24 01:35 | DS ---
DISCHARGE SUMMARY DATE OF SERVICE: 12/22/2019 CHIEF COMPLAINT: DKA. HISTORY OF PRESENT ILLNESS AND PHYSICAL EXAM: Details of this man's history and physical can be found in the initial workup. LABORATORY STUDIES: While he was in the hospital he had laboratory studies, details of which can be found in the laboratory section of his chart. COURSE IN THE HOSPITAL: After admission he was placed on bedrest, started on intravenous fluids and acid-base balance was corrected and blood sugars were brought down. They actually dropped to the point where he was symptomatic. His insulin was decreased and then his blood sugars neisha once again to 300 to 400. Insulin was gradually adjusted and he was doing well. It was felt that he could go home on the to follow up in the office in several days, if he so desires. He usually does not. FINAL DIAGNOSES: 1. Diabetic ketoacidosis. 2. Poorly controlled type 1 insulin-dependent diabetes mellitus. 3. Noncompliance. 4. Hypoglycemia. OPERATIONS: None. CONSULTATION: None. He is improved. MMJEAN-PAUL / ELMAN: [id number] /
== END 2019-12-22 11:20 | disposition home or self-care (01) ==
LOC: EC 06:05 → 3SCARD 08:31
PROVIDERS: ADMIT Family Medicine; ATTEND Family Medicine
DX: E10.10 Type 1 diabetes mellitus with ketoacidosis without coma (principal); E10.649 Type 1 diabetes mellitus with hypoglycemia without coma; Z91.19 Patient's noncompliance with other medical treatment and regimen; E86.0 Dehydration; I10 Essential (primary) hypertension; Z53.29 Procedure and treatment not carried out because of patient's decision for other reasons; J45.909 Unspecified asthma, uncomplicated; E10.43 Type 1 diabetes mellitus with diabetic autonomic (poly)neuropathy; K31.84 Gastroparesis; E10.42 Type 1 diabetes mellitus with diabetic polyneuropathy; G43.909 Migraine, unspecified, not intractable, without status migrainosus; M19.049 Primary osteoarthritis, unspecified hand; M17.0 Bilateral primary osteoarthritis of knee; F41.9 Anxiety disorder, unspecified; F31.9 Bipolar disorder, unspecified; F17.200 Nicotine dependence, unspecified, uncomplicated; Z03.818 Encounter for observation for suspected exposure to other biological agents ruled out; Z79.4 Long term (current) use of insulin; Z91.040 Latex allergy status; Z87.81 Personal history of (healed) traumatic fracture; Z96.22 Myringotomy tube(s) status; Z98.890 Other specified postprocedural states; Z86.69 Personal history of other diseases of the nervous system and sense organs; Z83.438 Family history of other disorder of lipoprotein metabolism and other lipidemia; Z82.49 Family history of ischemic heart disease and other diseases of the circulatory system; Z82.5 Family history of asthma and other chronic lower respiratory diseases
CPT/HCPCS: 96376 ×2; 96361 ×4; 96374; 99284; 36415; 80051; 80053; 80048; 82150; 82565; 82009; 83690; 84100; 82947 ×2; 84520; 85025 ×2; 81003; 83036; G0378 ×4; U0003; J2405 ×2

== ENCOUNTER 2020-05-20 22:17 | Inpatient (IN) | payer OTHER ==
[2020-05-20] MEDS ORDERED: ONDANSETRON 4 MG/2 ML VIAL IVP STA (22:28)
[2020-05-20] MEDS ORDERED: SODIUM CHLORIDE 0.9% 1,000 ML IV ONE ×2 (22:28→23:05)
--- NOTE | 2020-05-20 22:31 | ED ---
Nausea/Vomiting/Diarrhea HPI - General Stated complaint: vomiting Time Seen by Provider: 05/20/20 22:18 Source: patient, EMS - History of Present Illness Initial comments: Patient is 30-year-old man, with history of diabetes, brought by ambulance after he had called about vomiting that is been going on for 2 days. Last episode reportedly had some streaks of blood. The patient had not been able to eat and also has not taken insulin as result of not been able keep things down. Patient denies abdominal pain. MD complaint: nausea, vomiting Onset/Timin -: days(s) Description of Vomiting: food contents, blood-streaked Radiation: none Severity scale (1-10): 0 Improves with: none Worsens with: none Associated Symptoms: nausea/vomiting - Related Data Home Medications Medication Instructions Recorded Confirmed Insulin Glargine,Hum.rec.anlog See Protocol SQ DAILY 05/21/20 05/21/20 [Basaglar Kwikpen U-100] Insulin Lispro 20 unit SQ AC-TID 05/21/20 05/21/20 Allergies Allergy/AdvReac Type Severity Reaction Status Date / Time latex Allergy Rash/Hives Verified 05/21/20 06:40 Review of Systems ROS Statement: Those systems with pertinent positive or pertinent negative responses have been documented in the HPI. ROS Other: All systems not noted in ROS Statement are negative. Constitutional: Denies: fever, chills, weakness Respiratory: Denies: cough, dyspnea Cardiovascular: Denies: chest pain, palpitations Gastrointestinal: Reports: nausea, vomiting, hematemesis. Denies: abdominal pain, diarrhea, melena, hematochezia Genitourinary: Denies: dysuria, hematuria Musculoskeletal: Denies: back pain Skin: Denies: rash Neurological: Denies: headache, weakness Past Medical History Past Medical History: Asthma, Diabetes Mellitus, Osteoarthritis (OA) Additional Past Medical History / Comment(s): IDDM type I, diabetic gastroparesis, neuropathy bilateral hands/fingers, migraines, arthrtitis fingers/knees, past R hand and L femur fractures. History of Any Multi-Drug Resistant Organisms: MRSA Date of last positivie culture/infection: 04/26/2014 MDRO Source:: Face Past Surgical History: Ear Surgery, Orthopedic Surgery Additional Past Surgical History / Comment(s): R hand surgery d/t fracture- pinned and pins since removed, L leg femur fracture with pin that eventually was removed, bilateral myringotomy with tubes/ear drum repairs. Past Anesthesia/Blood Transfusion Reactions: No Reported Reaction Past Psychological History: Anxiety, Bipolar, Depression Smoking Status: Current every day smoker Past Alcohol Use History: None Reported Past Drug Use History: Marijuana - Past Family History Father Family Medical History: Hyperlipidemia, Hypertension Mother Family Medical History: COPD Additional Family Medical History / Comment(s): home O2, Brother(s) Family Medical History: No Reported History General Exam General appearance: alert, in no apparent distress Head exam: Present: atraumatic, normocephalic Eye exam: Present: normal appearance. Absent: scleral icterus, conjunctival injection ENT exam: Present: mucous membranes dry Neck exam: Present: normal inspection, full ROM Respiratory exam: Present: normal lung sounds bilaterally. Absent: respiratory distress, wheezes, rales, rhonchi, stridor Cardiovascular Exam: Present: normal rhythm, tachycardia (Heart rate 104 at my exam), normal heart sounds. Absent: systolic murmur, diastolic murmur, rubs, gallop GI/Abdominal exam: Present: soft. Absent: distended, tenderness, guarding, rebound, rigid, mass Extremities exam: Present: normal inspection, normal capillary refill. Absent: pedal edema, calf tenderness Back exam: Present: normal inspection. Absent: CVA tenderness (R), CVA tenderness (L) Neurological exam: Present: alert Skin exam: Present: warm, dry, intact, normal color. Absent: rash Course Vital Signs 05/20/20 05/20/20 05/20/20 22:25 22:57 23:19 Temperature 97.4 F L Pulse Rate 102 H 106 H 122 H Respiratory 16 18 22 Rate Blood Pressure 128/72 120/67 118/81 O2 Sat by Pulse 96 100 Oximetry 05/21/20 05/21/20 05/21/20 00:18 00:59 01:48 Temperature Pulse Rate 128 H 114 H 113 H Respiratory 16 16 14 Rate Blood Pressure 127/70 147/89 149/93 O2 Sat by Pulse 100 98 100 Oximetry Medical Decision Making - Lab Data Result diagrams: 05/20/20 22:45 05/21/20 04:47 Lab Results 12/15/20 12/15/20 12/15/20 Range/Units 22:45 22:45 22:47 WBC 25.9 H (3.8-10.6) k/uL RBC 5.31 (4.30-5.90) m/uL Hgb 16.1 (13.0-17.5) gm/dL Hct 54.6 H (39.0-53.0) % MCV 102.7 H (80.0-100.0) fL MCH 30.3 (25.0-35.0) pg MCHC 29.5 L (31.0-37.0) g/dL RDW 13.0 (11.5-15.5) % Plt Count 701 H (150-450) k/uL MPV 8.2 Neutrophils % (Manual) 76 % Band Neuts % (Manual) 5 % Lymphocytes % (Manual) 13 % Monocytes % (Manual) 1 % Eosinophils % (Manual) 1 % Metamyelocytes % 4 % Neutrophils # (Manual) 20.90 H (1.3-7.7) k/uL Lymphocytes # (Manual) 3.37 (1.0-4.8) k/uL Monocytes # (Manual) 0.26 (0-1.0) k/uL Eosinophils # (Manual) 0.26 (0-0.7) k/uL Metamyelocytes # (Man) 1.04 H (0) k/uL Nucleated RBCs 0 (0-0) /100 WBC Manual Slide Review Performed Hypochromasia Marked Macrocytosis Slight Sodium 134 L (137-145) mmol/L Potassium 7.3 H* (3.5-5.1) mmol/L Chloride 92 L (98-107) mmol/L Carbon Dioxide <5 L* (22-30) mmol/L Anion Gap mmol/L BUN 45 H (9-20) mg/dL Creatinine 1.47 H (0.66-1.25) mg/dL Est GFR (CKD-EPI)AfAm 73 (>60 ml/min/1.73 sqM) Est GFR (CKD-EPI)NonAf 63 (>60 ml/min/1.73 sqM) Glucose 806 H* (74-99) mg/dL POC Glucose (mg/dL) >600 H (75-99) mg/dL POC Glu [employer] Time Buyer ID Gwen Sauceda Calcium 10.0 (8.4-10.2) mg/dL Total Bilirubin 0.5 (0.2-1.3) mg/dL AST 39 (17-59) U/L ALT 41 (4-49) U/L Alkaline Phosphatase 273 H (38-126) U/L Total Protein 8.3 H (6.3-8.2) g/dL Albumin 4.8 (3.5-5.0) g/dL Urine Color Urine Appearance (Clear) Urine pH (5.0-8.0) Ur Specific [place] (1.001-1.035) Urine Protein (Negative) Urine Glucose (UA) (Negative) Urine Ketones (Negative) Urine Blood (Negative) Urine Nitrite (Negative) Urine Bilirubin (Negative) Urine Urobilinogen (<2.0) mg/dL Ur Leukocyte Esterase (Negative) Urine RBC (0-5) /hpf Urine WBC (0-5) /hpf Ur Squamous Epith Cells (0-4) /hpf Hyaline Casts (0-2) /lpf Urine Mucus (None) /hpf Acetone, Qual Positive (Negative) 05/20/20 05/21/20 05/21/20 Range/Units 23:04 00:47 01:10 WBC (3.8-10.6) k/uL RBC (4.30-5.90) m/uL Hgb (13.0-17.5) gm/dL Hct (39.0-53.0) % MCV (80.0-100.0) fL MCH (25.0-35.0) pg MCHC (31.0-37.0) g/dL RDW (11.5-15.5) % Plt Count (150-450) k/uL MPV Neutrophils % (Manual) % Band Neuts % (Manual) % Lymphocytes % (Manual) % Monocytes % (Manual) % Eosinophils % (Manual) % Metamyelocytes % % Neutrophils # (Manual) (1.3-7.7) k/uL Lymphocytes # (Manual) (1.0-4.8) k/uL Monocytes # (Manual) (0-1.0) k/uL Eosinophils # (Manual) (0-0.7) k/uL Metamyelocytes # (Man) (0) k/uL Nucleated RBCs (0-0) /100 WBC Manual Slide Review Hypochromasia Macrocytosis Sodium (137-145) mmol/L Potassium (3.5-5.1) mmol/L Chloride (98-107) mmol/L Carbon Dioxide (22-30) mmol/L Anion Gap mmol/L BUN (9-20) mg/dL Creatinine (0.66-1.25) mg/dL Est GFR (CKD-EPI)AfAm (>60 ml/min/1.73 sqM) Est GFR (CKD-EPI)NonAf (>60 ml/min/1.73 sqM) Glucose (74-99) mg/dL POC Glucose (mg/dL) >600 H 572 H (75-99) mg/dL POC Glu Radio Time Buyer ID Gwen Sauceda Emily Calcium (8.4-10.2) mg/dL Total Bilirubin (0.2-1.3) mg/dL AST (17-59) U/L ALT (4-49) U/L Alkaline Phosphatase (38-126) U/L Total Protein (6.3-8.2) g/dL Albumin (3.5-5.0) g/dL Urine Color Light Yellow Urine Appearance Clear (Clear) Urine pH 5.0 (5.0-8.0) Ur Specific [place] 1.017 (1.001-1.035) Urine Protein 1+ H (Negative) Urine Glucose (UA) 4+ H (Negative) Urine Ketones 4+ H (Negative) Urine Blood Trace H (Negative) Urine Nitrite Negative (Negative) Urine Bilirubin Negative (Negative) Urine Urobilinogen <2.0 (<2.0) mg/dL Ur Leukocyte Esterase Negative (Negative) Urine RBC <1 (0-5) /hpf Urine WBC 1 (0-5) /hpf Ur Squamous Epith Cells <1 (0-4) /hpf Hyaline Casts 59 H (0-2) /lpf Urine Mucus Rare H (None) /hpf Acetone, Qual (Negative) 05/21/20 Range/Units 01:14 WBC (3.8-10.6) k/uL RBC (4.30-5.90) m/uL Hgb (13.0-17.5) gm/dL Hct (39.0-53.0) % MCV (80.0-100.0) fL MCH (25.0-35.0) pg MCHC (31.0-37.0) g/dL RDW (11.5-15.5) % Plt Count (150-450) k/uL MPV Neutrophils % (Manual) % Band Neuts % (Manual) % Lymphocytes % (Manual) % Monocytes % (Manual) % Eosinophils % (Manual) % Metamyelocytes % % Neutrophils # (Manual) (1.3-7.7) k/uL Lymphocytes # (Manual) (1.0-4.8) k/uL Monocytes # (Manual) (0-1.0) k/uL Eosinophils # (Manual) (0-0.7) k/uL Metamyelocytes # (Man) (0) k/uL Nucleated RBCs (0-0) /100 WBC Manual Slide Review Hypochromasia Macrocytosis Sodium (137-145) mmol/L Potassium (3.5-5.1) mmol/L Chloride (98-107) mmol/L Carbon Dioxide (22-30) mmol/L Anion Gap mmol/L BUN (9-20) mg/dL Creatinine (0.66-1.25) mg/dL Est GFR (CKD-EPI)AfAm (>60 ml/min/1.73 sqM) Est GFR (CKD-EPI)NonAf (>60 ml/min/1.73 sqM) Glucose (74-99) mg/dL POC Glucose (mg/dL) 507 H (75-99) mg/dL POC Glu Radio Time Buyer ID Zulema Brielle Calcium (8.4-10.2) mg/dL Total Bilirubin (0.2-1.3) mg/dL AST (17-59) U/L ALT (4-49) U/L Alkaline Phosphatase (38-126) U/L Total Protein (6.3-8.2) g/dL Albumin (3.5-5.0) g/dL Urine Color Urine Appearance (Clear) Urine pH (5.0-8.0) Ur Specific [place] (1.001-1.035) Urine Protein (Negative) Urine Glucose (UA) (Negative) Urine Ketones (Negative) Urine Blood (Negative) Urine Nitrite (Negative) Urine Bilirubin (Negative) Urine Urobilinogen (<2.0) mg/dL Ur Leukocyte Esterase (Negative) Urine RBC (0-5) /hpf Urine WBC (0-5) /hpf Ur Squamous Epith Cells (0-4) /hpf Hyaline Casts (0-2) /lpf Urine Mucus (None) /hpf Acetone, Qual (Negative) Critical Care Time Critical Care Time: Yes (35 minutes) Disposition Clinical Impression: Diabetic ketoacidosis Disposition: ADMITTED IP TO THIS HOSP Condition: Serious Is patient prescribed a controlled substance at d/c from ED?: No
[2020-05-20] MEDS ORDERED: INSULIN REGULAR 100 UNIT/ML VIAL IV STA (22:49)
[2020-05-20 22:57] LABS: HCT 54.6 % (39.0-53.0); HGB 16.1 gm/dL (13.0-17.5); Hypochromasia Marked; MCH 30.3 pg (25.0-35.0); MCHC 29.5 g/dL (31.0-37.0); MCV 102.7 fL (80.0-100.0); Macrocytosis Slight; Mean Platelet Volume 8.2; Platelet Count 701 k/uL (150-450); RBC 5.31 m/uL (4.30-5.90); WBC 25.9 k/uL (3.8-10.6)
[2020-05-20 22:59] LABS: Glucose,Whole Blood >600 mg/dL (75-99)
[2020-05-20] MEDS ORDERED: PANTOPRAZOLE 40 MG/10 ML VIAL IVP STA (23:05)
[2020-05-20] MEDS ORDERED: METOCLOPRAMIDE 5 MG/ML 2 ML VIAL IVP STA (23:05)
[2020-05-20 23:07] LABS: Glucose,Whole Blood >600 mg/dL (75-99)
[2020-05-20 23:10] LABS: ALT 41 U/L (4-49); AST 39 U/L (17-59); African American GFR (CKD) 73 (>60 ml/min/1.73 sqM); Albumin 4.8 g/dL (3.5-5.0); Alkaline Phosphatase 273 U/L (38-126); Blood Urea Nitrogen 45 mg/dL (9-20); Chloride 92 mmol/L (98-107); Non-African American GFR(CKD) 63 (>60 ml/min/1.73 sqM); Sodium 134 mmol/L (137-145); Total Bilirubin 0.5 mg/dL (0.2-1.3); Total Protein 8.3 g/dL (6.3-8.2)
[2020-05-20 23:27] LABS: Carbon Dioxide <5 mmol/L (22-30); Glucose 806 mg/dL (74-99); Potassium 7.3 mmol/L (3.5-5.1)
[2020-05-20] MEDS ORDERED: Magnesium Replacement Protocol 1 EACH MISC MISCELLANE PRN (23:34)
[2020-05-20] MEDS ORDERED: Potassium Replacement Protocol 1 EACH MISC MISCELLANE PRN (23:34)
[2020-05-20] MEDS ORDERED: INSULIN REGULAR 100 UNIT in SODIUM CHLORIDE 0.9% 100 ML IV SCH (23:45)
[2020-05-21 00:15] LABS: Band Neutrophils % 5 %; Eosinophils # (M) 0.26 k/uL (0-0.7); Lymphocytes # (M) 3.37 k/uL (1.0-4.8); Metamyelocytes # (M) 1.04 k/uL (0); Metamyelocytes % 4 %; Monocytes # (M) 0.26 k/uL (0-1.0); Neutrophils % (M) 76 %; Nucleated Red Blood Cells 0 /100 WBC (0-0); Total Cells Counted 100
[2020-05-21 00:48] LABS: Glucose,Whole Blood 572 mg/dL (75-99)
[2020-05-21 01:17] LABS: Glucose,Whole Blood 507 mg/dL (75-99)
[2020-05-21 01:34] LABS: Appearance,Urine Clear (Clear); Bilirubin,Urine Negative (Negative); Blood,Urine Trace (Negative); Color,Urine Light Yellow; Glucose,Urine (UA) 4+ (Negative); Hyaline Casts,Urine 59 /lpf (0-2); Leukocyte Esterase,Urine Negative (Negative); Mucus,Urine Rare /hpf; Nitrite,Urine Negative (Negative); Protein,Urine 1+ (Negative); RBC,Urine <1 /hpf (0-5); Specific Gravity,Urine 1.017 (1.001-1.035); Squamous Epithelial Cell,Urine <1 /hpf (0-4); Urobilinogen,Urine <2.0 mg/dL (<2.0); WBC,Urine 1 /hpf (0-5)
[2020-05-21 01:40] LABS: VBG PH 7.16 (7.31-7.41)
[2020-05-21 01:41] LABS: ALT 35 U/L (4-49); AST 30 U/L (17-59); African American GFR (CKD) >90 (>60 ml/min/1.73 sqM); Albumin 4.2 g/dL (3.5-5.0); Alkaline Phosphatase 222 U/L (38-126); Anion Gap 26 mmol/L; Blood Urea Nitrogen 48 mg/dL (9-20); Calcium 8.9 mg/dL (8.4-10.2); Chloride 106 mmol/L (98-107); Non-African American GFR(CKD) 81 (>60 ml/min/1.73 sqM); Potassium 4.5 mmol/L (3.5-5.1); Sodium 139 mmol/L (137-145); Total Bilirubin 0.3 mg/dL (0.2-1.3); Total Protein 7.4 g/dL (6.3-8.2)
[2020-05-21 01:44] LABS: Carbon Dioxide 7 mmol/L (22-30); Glucose 532 mg/dL (74-99)
[2020-05-21 01:47] LABS: Ketones,Urine 4+ (Negative)
[2020-05-21] MEDS: SODIUM CHLORIDE 0.9% 1,000 ML IV SCH ×3 (01:51→12:32)
[2020-05-21 02:17] LABS: Glucose,Whole Blood 387 mg/dL (75-99)
[2020-05-21 03:43] LABS: Glucose,Whole Blood 348 mg/dL (75-99)
[2020-05-21 04:21] LABS: Glucose,Whole Blood 223 mg/dL (75-99)
[2020-05-21 05:21] LABS: African American GFR (CKD) >90 (>60 ml/min/1.73 sqM); Anion Gap 13 mmol/L; Blood Urea Nitrogen 41 mg/dL (9-20); Carbon Dioxide 17 mmol/L (22-30); Chloride 113 mmol/L (98-107); Glucose 228 mg/dL (74-99); Non-African American GFR(CKD) >90 (>60 ml/min/1.73 sqM); Phosphorus 2.4 mg/dL (2.5-4.5); Potassium 4.6 mmol/L (3.5-5.1); Sodium 143 mmol/L (137-145)
[2020-05-21 05:48] LABS: Glucose,Whole Blood 159 mg/dL (75-99)
[2020-05-21] MEDS: DEXTROSE 5%-0.45% NACL 1,000 ML with POTASSIUM CHLORIDE 20 MEQ IV SCH ×4 (06:46→12:55)
[2020-05-21 06:50] LABS: Glucose,Whole Blood 126 mg/dL (75-99)
[2020-05-21 07:55] LABS: Glucose,Whole Blood 114 mg/dL (75-99)
[2020-05-21 09:04] LABS: Glucose,Whole Blood 167 mg/dL (75-99)
[2020-05-21 09:56] LABS: Glucose,Whole Blood 167 mg/dL (75-99)
[2020-05-21 10:50] LABS: Glucose,Whole Blood 192 mg/dL (75-99)
[2020-05-21 11:43] LABS: Glucose,Whole Blood 176 mg/dL (75-99)
[2020-05-21 13:09] LABS: Glucose,Whole Blood 202 mg/dL (75-99)
[2020-05-21 14:21] LABS: Glucose,Whole Blood 195 mg/dL (75-99)
[2020-05-21 14:27] VITALS: BMI 20.5
[2020-05-21 14:53] LABS: Glucose,Whole Blood 226 mg/dL (75-99)
[2020-05-21] MEDS: INSULIN DETEMIR (LEVEMIR) 100 UNIT/ML SYR SQ SCH (15:50)
[2020-05-21 17:01] LABS: Glucose,Whole Blood 221 mg/dL (75-99)
[2020-05-21] MEDS: INSULIN ASPART (NovoLOG) 100 UNIT/ML VIAL SQ SCH ×3 (17:33→22:18)
[2020-05-21 20:06] LABS: Glucose,Whole Blood 201 mg/dL (75-99)
[2020-05-22 02:11] LABS: Glucose,Whole Blood 71 mg/dL (75-99)
[2020-05-22 06:15] LABS: Glucose,Whole Blood 151 mg/dL (75-99)
[2020-05-22] MEDS: INSULIN DETEMIR (LEVEMIR) 100 UNIT/ML SYR SQ SCH (06:53)
[2020-05-22] MEDS: INSULIN ASPART (NovoLOG) 100 UNIT/ML VIAL SQ SCH ×7 (06:54→20:24)
[2020-05-22 08:22] LABS: African American GFR (CKD) >90 (>60 ml/min/1.73 sqM); Anion Gap 5 mmol/L; Blood Urea Nitrogen 13 mg/dL (9-20); Calcium 8.9 mg/dL (8.4-10.2); Carbon Dioxide 29 mmol/L (22-30); Chloride 101 mmol/L (98-107); Glucose 232 mg/dL (74-99); Non-African American GFR(CKD) >90 (>60 ml/min/1.73 sqM); Sodium 135 mmol/L (137-145)
[2020-05-22 11:43] LABS: Glucose,Whole Blood 231 mg/dL (75-99)
[2020-05-22] MEDS ORDERED: VANCOMYCIN IV PER PHARMACY 1 EACH MISC MISCELLANE PRN (11:52)
[2020-05-22] MEDS: traMADol 50 MG TAB PO PRN ×2 (12:20→20:23)
--- NOTE | 2020-05-22 12:47 | P.CONS ---
History of Present Illness - Reason for Consult Consult date: 05/22/20 Wound care - History of Present Illness this is a 30-year-old patient who injured his left hand fifth digit on Tuesday while working on a car. He been utilizing peroxide and alcohol to clean it. He is had it wrapped. Patient has significant edema to the site and open ulceration with slough noted within the wound bed without any granulation. Patient has induration edema and decreased range of motion to the site. Signi ficant pain to palpation. Patient has history of diabetes. Review of Systems Review Of Systems: Constitutional: No fever, no chills, no night sweats. No weight change. No weakness, fatigue or lethargy. No daytime sleepiness. Integumentary:reports wounds, no lesions. No rash or pruritus. No unusual bruising. No change in hair or nails. Past Medical History Past Medical History: Asthma, Diabetes Mellitus, Osteoarthritis (OA) Additional Past Medical History / Comment(s): IDDM type I, diabetic gastroparesis, neuropathy bilateral hands/fingers, migraines, arthrtitis fingers/knees, past R hand and L femur fractures. History of Any Multi-Drug Resistant Organisms: MRSA Year Discovered:: 04/26/2014 MDRO Source:: Face Past Surgical History: Ear Surgery, Orthopedic Surgery Additional Past Surgical History / Comment(s): R hand surgery d/t fracture- pinned and pins since removed, L leg femur fracture with pin that eventually was removed, bilateral myringotomy with tubes/ear drum repairs. Past Anesthesia/Blood Transfusion Reactions: No Reported Reaction Past Psychological History: Anxiety, Bipolar, Depression Smoking Status: Current every day smoker Past Alcohol Use History: None Reported Past Drug Use History: Marijuana - Past Family History Father Family Medical History: Hyperlipidemia, Hypertension Mother Family Medical History: COPD Additional Family Medical History / Comment(s): home O2, Brother(s) Family Medical History: No Reported History Medications and Allergies Home Medications Medication Instructions Recorded Confirmed Type Insulin Aspart [NovoLOG] 20 units SQ TID-W/MEALS 05/21/20 05/21/20 History Insulin Glulisine [Apidra] 40 unit SQ DAILY 05/21/20 05/21/20 History Allergies Allergy/AdvReac Type Severity Reaction Status Date / Time latex Allergy Rash/Hives Verified 05/21/20 06:40 Physical Exam Vitals: Vital Signs Temp Pulse Resp BP Pulse Ox 05/22/20 11:00 98 16 132/71 98 05/22/20 08:15 98.3 F 108 H 16 133/87 99 05/22/20 04:00 97.7 F 80 18 115/71 99 05/22/20 00:00 98.8 F 91 18 130/74 98 05/21/20 19:58 99.1 F 93 17 131/68 97 05/21/20 16:00 98.3 F 84 18 121/70 100 Intake and Output 05/21/20 05/22/20 05/22/20 22:59 06:59 14:59 Intake Total 120 240 Balance 120 240 Intake: Oral 120 240 Other: Voiding Method Urinal Urinal # Voids 1 2 Weight 64.2 kg Physical exam: General Appearance: Alert, cooperative, no distress, appears stated age. Skin: See HPI all other Skin color, texture, tugor normal, no rashes or lesions. Neurologic: Alert oriented x3 Results CBC & Chem 7: 05/20/20 22:45 05/22/20 07:20 Labs: Abnormal Lab Results - Last 24 Hours (Table) 05/21/20 05/21/20 05/21/20 Range/Units 13:08 13:15 14:19 Sodium (137-145) mmol/L Chloride 110 H (98-107) mmol/L Carbon Dioxide 20 L (22-30) mmol/L Creatinine (0.66-1.25) mg/dL Glucose (74-99) mg/dL POC Glucose (mg/dL) 202 H 195 H (75-99) mg/dL 05/21/20 05/21/20 05/21/20 Range/Units 14:52 17:00 20:04 Sodium (137-145) mmol/L Chloride (98-107) mmol/L Carbon Dioxide (22-30) mmol/L Creatinine (0.66-1.25) mg/dL Glucose (74-99) mg/dL POC Glucose (mg/dL) 226 H 221 H 201 H (75-99) mg/dL 05/22/20 05/22/20 05/22/20 Range/Units 02:10 06:14 07:20 Sodium 135 L (137-145) mmol/L Chloride (98-107) mmol/L Carbon Dioxide (22-30) mmol/L Creatinine 0.43 L (0.66-1.25) mg/dL Glucose 232 H (74-99) mg/dL POC Glucose (mg/dL) 71 L 151 H (75-99) mg/dL 05/22/20 Range/Units 11:32 Sodium (137-145) mmol/L Chloride (98-107) mmol/L Carbon Dioxide (22-30) mmol/L Creatinine (0.66-1.25) mg/dL Glucose (74-99) mg/dL POC Glucose (mg/dL) 231 H (75-99) mg/dL Assessment and Plan (1) Nonhealing skin ulcer with fat layer exposed Current Visit: Yes Status: Acute Code(s): L98.492 - NON-PRS CHRONIC ULCER OF SKIN OF SITES W FAT LAYER EXPOSED SNOMED Code(s): 72362074 (2) Diabetes with skin ulcer Current Visit: Yes Status: Acute Code(s): E11.622 - TYPE 2 DIABETES MELLITUS WITH OTHER SKIN ULCER; L98.499 - NON-PRESSURE CHRONIC ULCER OF SKIN OF SITES W UNSP SEVERITY SNOMED Code(s): 00798828 Plan: x-ray to rule out osteal myelitis. Wound culture in progress. Apply absorptive silver, saline moistened gauze rolled gauze and secured paper tape. If the ulceration continues have difficulty in healing an appointment to an outpatient wound care center would be appropriate. Thank you for the consultation any questions please contact the wound care center DNP note has been reviewed and discussed with Dr. Ayon and the impression and plan of care has been directed as dictated.
--- NOTE | 2020-05-22 13:07 | XR ---
EXAMINATION TYPE: XR hand limited LT DATE OF EXAM: 05/22/2020 COMPARISON: None HISTORY: Fifth digit , rule out osteomyelitis TECHNIQUE: Three-view left hand FINDINGS: Soft tissue swelling is over the fifth digit. There is erosion of the proximal portion dist al phalanx fifth digit can be compatible with acute osteomyelitis. Joint spaces appear preserved. No additional cortical erosions are identified. The remaining soft tis sues are normal. IMPRESSION: 1. Erosion of the proximal metaphyseal distal phalanx fifth digit can be compatible with acute osteo myelitis
[2020-05-22] MEDS: VANCOMYCIN 1,250 MG in SODIUM CHLORIDE 0.9% 250 ML IVPB SCH ×2 (13:25→20:16)
[2020-05-22 16:37] LABS: Glucose,Whole Blood 97 mg/dL (75-99)
[2020-05-22 18:27] LABS: Hemoglobin A1C 12.8 % (4.0-6.0)
--- NOTE | 2020-05-22 19:48 | HP ---
HISTORY AND PHYSICAL CHIEF COMPLAINT: DKA. HISTORY OF PRESENT ILLNESS: This is another admission for this 30-year-old noncompliant diabetic. He presented to the emergency room and was found to have elevated blood sugar. He was admitted. He has not been seen in the office since January. At that time he was using Basaglar 70 units once a day, vitamin D, Admelog 16 units 3 times a day. It is believed that he has not been taking his insulin. REVIEW OF SYSTEMS: He is complaining of some pain in the left fifth finger where he has an injury. He has had no hematemesis, melena, hematochezia, jaundice, etc. Past medical history, family history, and personal and social histories are unremarkable and noncontributory otherwise. PHYSICAL EXAMINATION: Blood pressure is 111/60 with a pulse of 92 and regular, respirations of 40. In general he appeared to be dehydrated, chronically ill in appearance. Head, ears, eyes, nose, mouth and throat were normal. Chest was clear. Cardiac exam was normal except for sinus tachycardia. The abdomen was flat, soft and nontender. Extremities were normal. Neurologically he is intact. He is admitted to the hospital with diagnoses: 1. Diabetic ketoacidosis. 2. Noncompliant type 1 insulin-dependent diabetic. 3. Laceration of the left fifth finger. PLAN: 1. Bedrest. 2. IV fluids. 3. Hydrate. 4. Control diabetes. MMODL / ELMAN: [id number] /
--- NOTE | 2020-05-22 20:18 | PN ---
PROGRESS NOTE CHIEF COMPLAINT: DKA. HISTORY OF PRESENT ILLNESS: This gentleman's blood sugars are coming down nicely. He is complaining of a lot of pain in the left fifth finger where he sustained a laceration several days ago, and now the finger is starting to look infected. PHYSICAL EXAMINATION: Chest is clear. Cardiac exam is normal. On the dorsum of the left fifth finger there is a laceration with developing cellulitis extending up from the end of the finger to the PIP joint. IMPRESSION: 1. Diabetic ketoacidosis. 2. Type 1 diabetes mellitus. 3. Infected laceration, left fifth finger. PLAN: 1. Culture of the finger. 2. Start vancomycin. 3. Consult Infectious Disease and Orthopedics. MMODL / IJN: [id number] /
[2020-05-22 20:23] LABS: Glucose,Whole Blood 76 mg/dL (75-99)
[2020-05-23 03:33] LABS: Glucose,Whole Blood 311 mg/dL (75-99)
[2020-05-23] MEDS: traMADol 50 MG TAB PO PRN (03:36)
[2020-05-23] MEDS: VANCOMYCIN 1,250 MG in SODIUM CHLORIDE 0.9% 250 ML IVPB SCH ×2 (04:25→13:10)
[2020-05-23 06:02] LABS: Glucose,Whole Blood 317 mg/dL (75-99)
[2020-05-23 07:05] LABS: Glucose,Whole Blood 344 mg/dL (75-99)
[2020-05-23] MEDS: INSULIN DETEMIR (LEVEMIR) 100 UNIT/ML SYR SQ SCH (07:10)
[2020-05-23] MEDS: INSULIN ASPART (NovoLOG) 100 UNIT/ML VIAL SQ SCH ×7 (07:11→22:08)
--- NOTE | 2020-05-23 08:53 | P.CNOR ---
History of Present Illness - HPI Consult date: 05/23/20 Consult reason: other (Infection left little finger) History of present illness: This is a 30-year-old male who presents to the emergency department with history of laceration to his left little finger on 05/18/2020 when he was working on his car. He states that he mainly cleanse the wound with peroxide. The patient is a poorly controlled diabetic. He states that the finger began looking red and swollen and has quickly progressed over the past 2 days. The patient's nurse states that she saw the finger on Tuesday looks significantly worse today. We are consulted for urgent orthopedic evaluation. Past Medical History Past Medical History: Asthma, Diabetes Mellitus, Osteoarthritis (OA) Additional Past Medical History / Comment(s): IDDM type I, diabetic gastroparesis, neuropathy bilateral hands/fingers, migraines, arthrtitis fingers/knees, past R hand and L femur fractures. History of Any Multi-Drug Resistant Organisms: MRSA Year Discovered:: 04/26/2014 MDRO Source:: Face Past Surgical History: Ear Surgery, Orthopedic Surgery Additional Past Surgical History / Comment(s): R hand surgery d/t fracture- pinned and pins since removed, L leg femur fracture with pin that eventually was removed, bilateral myringotomy with tubes/ear drum repairs. Past Anesthesia/Blood Transfusion Reactions: No Reported Reaction Past Psychological History: Anxiety, Bipolar, Depression Smoking Status: Current every day smoker Past Alcohol Use History: None Reported Past Drug Use History: Marijuana - Past Family History Father Family Medical History: Hyperlipidemia, Hypertension Mother Family Medical History: COPD Additional Family Medical History / Comment(s): home O2, Brother(s) Family Medical History: No Reported History Medications and Allergies Home Medications Medication Instructions Recorded Confirmed Type Insulin Aspart [NovoLOG] 20 units SQ TID-W/MEALS 05/21/20 05/21/20 History Insulin Glulisine [Apidra] 40 unit SQ DAILY 05/21/20 05/21/20 History Allergies Allergy/AdvReac Type Severity Reaction Status Date / Time latex Allergy Rash/Hives Verified 05/21/20 06:40 Physical Examination This is a 30-year-old male in no acute distress. He is alert and oriented 3. Exam of the left hand reveals swelling, erythema and ulcerations to the finger. He is unable to fully extend the finger at the PIP joint. There is active drainage from the fingertip. There is no erythema up into the hand or forearm. He has full wrist and elbow motion without difficulty. Results X-rays of the left hand reveal some erosion of the distal phalanx of the little finger. Findings are consistent with osteomyelitis. - Labs Labs: Abnormal Lab Results - Last 24 Hours (Table) 05/22/20 05/22/20 05/23/20 Range/Units 07:20 11:32 03:28 POC Glucose (mg/dL) 231 H 311 H (75-99) mg/dL Hemoglobin A1c 12.8 H (4.0-6.0) % 05/23/20 05/23/20 Range/Units 06:01 07:03 POC Glucose (mg/dL) 317 H 344 H (75-99) mg/dL Hemoglobin A1c (4.0-6.0) % Microbiology - Last 24 Hours (Table) 05/22/20 13:27 Gram Stain - Preliminary Finger - Left Fifth Wound Culture - Preliminary 05/22/20 13:27 Anaerobic Culture - Preliminary Finger - Left Fifth H & H 05/20/20 Range/Units 22:45 Hgb 16.1 (13.0-17.5) gm/dL Hct 54.6 H (39.0-53.0) % Result Diagrams: 05/20/20 22:45 05/22/20 07:20 Assessment and Plan (1) Finger laceration Current Visit: Yes Status: Acute Code(s): S61.219A - LACERATION W/O FB OF UNSP FINGER W/O DAMAGE TO NAIL, INIT SNOMED Code(s): 334682646 (2) Osteomyelitis of finger of left hand Current Visit: Yes Status: Acute Code(s): M86.9 - OSTEOMYELITIS, UNSPECIFIED SNOMED Code(s): 55691750 (3) Diabetes with skin ulcer Current Visit: Yes Status: Acute Code(s): E11.622 - TYPE 2 DIABETES MELLITUS WITH OTHER SKIN ULCER; L98.499 - NON-PRESSURE CHRONIC ULCER OF SKIN OF SITES W UNSP SEVERITY SNOMED Code(s): 54686444 (4) Diabetic ketoacidosis Current Visit: Yes Status: Acute Code(s): E13.10 - OTH DIABETES MELLITUS WITH KETOACIDOSIS WITHOUT COMA SNOMED Code(s): 861538759 (5) Nonhealing skin ulcer with fat layer exposed Current Visit: Yes Status: Acute Code(s): L98.492 - NON-PRS CHRONIC ULCER OF SKIN OF SITES W FAT LAYER EXPOSED SNOMED Code(s): 01944968 Plan: The clinical and x-ray findings are discussed with the patient and his nurse. Dressing is changed today. It is recommended he undergo surgical debridement with possible irritation of the distal phalanx today. The patient understands and agrees to plan.
[2020-05-23] MEDS: DEXTROSE 5%-0.45% NACL 1,000 ML IV SCH ×3 (09:14→17:51)
[2020-05-23 11:42] LABS: Glucose,Whole Blood 271 mg/dL (75-99)
[2020-05-23] MEDS ORDERED: VANCOMYCIN TROUGH DUE 1 EACH MISC MISCELLANE ONE (12:00)
[2020-05-23] MEDS ORDERED: ONDANSETRON 4 MG/2 ML VIAL ONE (13:38)
[2020-05-23] MEDS ORDERED: IV FLUID CONTINUATION 1,000 ML IV ONE (13:42)
[2020-05-23] MEDS ORDERED: ONDANSETRON 4 MG/2 ML VIAL IVP ONE (13:55)
[2020-05-23 14:00] LABS: Glucose,Whole Blood 134 mg/dL (75-99)
[2020-05-23] MEDS ORDERED: FAMOTIDINE 20 MG/2 ML VIAL IVP ONE (14:44)
[2020-05-23] MEDS ORDERED: MIDAZOLAM 2 MG/2 ML VIAL ONE (15:04)
[2020-05-23] MEDS ORDERED: KETAMINE 10 MG/ML 20 ML VIAL ONE (15:04)
[2020-05-23] MEDS ORDERED: PROPOFOL 10 MG/ML 20 ML VIAL IV ONE (15:04)
[2020-05-23] MEDS ORDERED: fentaNYL (PF) 50 MCG/ML 2 ML AMP ONE (15:04)
[2020-05-23] MEDS ORDERED: BUPIVACAINE (PF) 0.25% 30 ML VIAL SQ ONE (15:16)
[2020-05-23] MEDS ORDERED: LACTATED RINGERS 1,000 ML IV ONE (15:55)
[2020-05-23] MEDS ORDERED: ONDANSETRON 4 MG/2 ML VIAL IVP PRN (16:08)
[2020-05-23] MEDS ORDERED: TEMAZEPAM 15 MG CAP PO PRN (16:08)
[2020-05-23] MEDS ORDERED: HYDROcodone/APAP 5-325MG 1 EACH TAB PO PRN ×2 (16:08)
[2020-05-23] MEDS ORDERED: HYDROmorphone 0.2 MG/1 ML SYRINGE IVP PRN (16:08)
[2020-05-23] MEDS ORDERED: SENNOSIDES-DOCUSATE SODIUM 1 EACH TAB PO PRN (16:08)
[2020-05-23] MEDS ORDERED: diphenhydrAMINE 25 MG CAP PO PRN (16:08)
[2020-05-23 16:16] LABS: Glucose,Whole Blood 145 mg/dL (75-99)
[2020-05-23 17:01] LABS: Glucose,Whole Blood 124 mg/dL (75-99)
--- NOTE | 2020-05-23 19:11 | PN ---
PROGRESS NOTE DATE OF SERVICE: 05/23/2020 CHIEF COMPLAINT: DKA and infected left 5th finger. HISTORY OF PRESENT ILLNESS: This gentleman's blood sugars are greatly improved. He is going to the operating room today for debridement of the left 5th finger. PHYSICAL EXAMINATION: Chest is clear. Cardiac exam is normal. Abdomen is soft, nontender. Left 5th finger is dressed, but there is a purulent drainage. IMPRESSION: 1. Diabetic ketoacidosis. 2. Infected bacterial infection of the left 5th finger. PLAN: Surgical management of the left 5th finger today. MMODL / IJN: [id number] /
[2020-05-23 20:09] LABS: Glucose,Whole Blood 141 mg/dL (75-99)
--- NOTE | 2020-05-23 22:13 | P.OP ---
Date of Procedure: 05/23/20 Procedure(s) Performed: 5th finger amputation through PIP joint due to necrotizing fasciitis foul smelling rotting flesh discharge dishwater pus througout distal phalanx and DIP joint some tracking of pus along extensor surface to near the PIP joint PIP disarticulated and placed in hibiclens solution for 2 minutes with swirl low pressure high volume irrigation healthy appearing bleeding tissue once tourniquet deflated
[2020-05-23] MEDS: HYDROmorphone 0.5 MG/0.5 ML SYRINGE IVP PRN (22:17)
[2020-05-23] MEDS: VANCOMYCIN 1,500 MG in SODIUM CHLORIDE 0.9% 250 ML IVPB SCH (22:32)
--- NOTE | 2020-05-24 00:06 | PN ---
PROGRESS NOTE DATE OF SERVICE: 05/23/2020 REASON FOR FOLLOWUP: Left finger infection. INTERVAL HISTORY: Patient was seen on rounds early this afternoon. The patient has been afebrile. Still complaining of significant pain to the left 5th finger tip area. The patient scheduled for amputation of the distal phalanx. The patient denies having any chest pain, shortness of breath or cough. No abdominal pain. No diarrhea. PHYSICAL EXAMINATION: Blood pressure 132/79 with a pulse of 73, temperature 98.2. He is 100% on room air. General description: The patient is a middle-aged male lying in bed in no distress. Respiratory system: Unlabored breathing. Clear to auscultation anteriorly. Heart S1, S2 regular rate and rhythm. ABDOMEN: Soft, no tenderness. Left hand is did have significant swelling redness and minimal drainage. LABS: Wound culture showing Staph aureus. DIAGNOSTIC IMPRESSION AND PLAN: Patient with left hand 5th finger tip infection culture with staph aureus while waiting for the ID sensitivities, we will add clindamycin and may switch over to cefazolin if the organism turns out to be MSSA. Local care per Surgery. Continue supportive care. MMODL / IJN: [id number] /
[2020-05-24] MEDS: HYDROmorphone 0.5 MG/0.5 ML SYRINGE IVP PRN ×6 (01:33→23:45)
[2020-05-24] MEDS: CLINDAMYCIN 900 MG in DEXTROSE 5% IN WATER 50 ML IVPB SCH ×4 (01:34→08:13)
[2020-05-24] MEDS: HYDROmorphone 1 MG/ML 1 ML SYRINGE IVP PRN (04:51)
[2020-05-24] MEDS: VANCOMYCIN 1,500 MG in SODIUM CHLORIDE 0.9% 250 ML IVPB SCH ×2 (04:52→12:33)
[2020-05-24] MEDS: DEXTROSE 5%-0.45% NACL 1,000 ML IV SCH ×2 (04:53→08:30)
[2020-05-24 07:17] LABS: Glucose,Whole Blood 272 mg/dL (75-99)
[2020-05-24] MEDS: INSULIN ASPART (NovoLOG) 100 UNIT/ML VIAL SQ SCH ×7 (07:50→21:02)
[2020-05-24 08:29] LABS: Basophils % (A) 0 %; Eosinophils # (A) 0.1 k/uL (0-0.7); Eosinophils % (A) 2 %; HCT 39.3 % (39.0-53.0); Lymphocytes # (A) 1.7 k/uL (1.0-4.8); Lymphocytes % (A) 21 %; MCH 30.4 pg (25.0-35.0); MCHC 33.1 g/dL (31.0-37.0); Mean Platelet Volume 7.4; Monocytes # (A) 0.4 k/uL (0-1.0); Monocytes % (A) 5 %; Neutrophils # (A) 5.8 k/uL (1.3-7.7); Neutrophils % (A) 70 %; Platelet Count 515 k/uL (150-450); RBC 4.27 m/uL (4.30-5.90); RDW 13.1 % (11.5-15.5); WBC 8.3 k/uL (3.8-10.6)
[2020-05-24] MEDS: INSULIN DETEMIR (LEVEMIR) 100 UNIT/ML SYR SQ SCH (08:29)
[2020-05-24 08:34] LABS: African American GFR (CKD) >90 (>60 ml/min/1.73 sqM); Anion Gap 3 mmol/L; Blood Urea Nitrogen 11 mg/dL (9-20); C Reactive Protein 10.5 mg/L (<10.0); Calcium 8.6 mg/dL (8.4-10.2); Carbon Dioxide 31 mmol/L (22-30); Chloride 99 mmol/L (98-107); Glucose 349 mg/dL (74-99); Non-African American GFR(CKD) >90 (>60 ml/min/1.73 sqM); Potassium 4.6 mmol/L (3.5-5.1); Sodium 133 mmol/L (137-145)
[2020-05-24 08:44] LABS: MCV 91.9 fL (80.0-100.0)
--- NOTE | 2020-05-24 09:05 | P.PN ---
Subjective Progress Note Date: 05/24/20 Principal diagnosis: Infection left little finger. Status post amputation left little finger at the PIP joint. This is a 30-year-old male who is status post amputation of the left little finger at the PIP joint for infection. He is stable from an orthopedic standpoint. He has no new complaints or concerns today. His vitals are stable. His glucose was 349 this morning. He has been nothing by mouth. Culture from 05/22/2020 reveals presumptive staph aureus. Objective - Vital Signs Vital signs: Vital Signs Temp 98.7 F 05/24/20 04:00 Pulse 96 05/24/20 04:00 Resp 18 05/24/20 04:00 BP 163/79 05/24/20 04:00 Pulse Ox 100 05/24/20 04:00 Intake & Output 05/23/20 05/24/20 05/24/20 18:59 06:59 18:59 Intake Total 1916 480 Output Total 0 1300 Balance 1916 -820 Weight 56.5 kg Intake: IV 1100 Oral 816 480 Output: Urine 1300 Estimated Blood Loss 0 Other: Voiding Method Toilet Urinal Urinal # Voids 2 - Exam This is a pleasant 30-year-old male in no acute distress. He is alert and oriented 3. Exam of the left little finger after dressing is removed reveals mild erythema. There is mild swelling. The 2 sutures are intact. He has normal motion at the MCP joint. No active drainage from the incision. - Labs CBC & Chem 7: 05/24/20 07:58 05/24/20 07:58 Labs: Abnormal Lab Results - Last 24 Hours (Table) 05/23/20 05/23/20 05/23/20 Range/Units 11:35 13:58 16:15 RBC (4.30-5.90) m/uL Plt Count (150-450) k/uL Sodium (137-145) mmol/L Carbon Dioxide (22-30) mmol/L Creatinine (0.66-1.25) mg/dL Glucose (74-99) mg/dL POC Glucose (mg/dL) 271 H 134 H 145 H (75-99) mg/dL C-Reactive Protein (<10.0) mg/L 05/23/20 05/23/20 05/24/20 Range/Units 17:00 20:08 07:13 RBC (4.30-5.90) m/uL Plt Count (150-450) k/uL Sodium (137-145) mmol/L Carbon Dioxide (22-30) mmol/L Creatinine (0.66-1.25) mg/dL Glucose (74-99) mg/dL POC Glucose (mg/dL) 124 H 141 H 272 H (75-99) mg/dL C-Reactive Protein (<10.0) mg/L 05/24/20 05/24/20 Range/Units 07:58 07:58 RBC 4.27 L (4.30-5.90) m/uL Plt Count 515 H (150-450) k/uL Sodium 133 L (137-145) mmol/L Carbon Dioxide 31 H (22-30) mmol/L Creatinine 0.42 L (0.66-1.25) mg/dL Glucose 349 H (74-99) mg/dL POC Glucose (mg/dL) (75-99) mg/dL C-Reactive Protein 10.5 H (<10.0) mg/L Microbiology - Last 24 Hours (Table) 05/23/20 15:57 Gram Stain - Preliminary Finger - Left Fifth Wound Culture - Preliminary 05/23/20 15:57 Anaerobic Culture - Preliminary Finger - Left Fifth 05/22/20 13:27 Gram Stain - Preliminary Finger - Left Fifth Wound Culture - Preliminary Presumptive Staph aureus Assessment and Plan (1) Finger laceration Current Visit: Yes Status: Acute Code(s): S61.219A - LACERATION W/O FB OF UNSP FINGER W/O DAMAGE TO NAIL, INIT SNOMED Code(s): 347223930 (2) Osteomyelitis of finger of left hand Current Visit: Yes Status: Acute Code(s): M86.9 - OSTEOMYELITIS, UNSPECIFIED SNOMED Code(s): 76068002 (3) Diabetes with skin ulcer Current Visit: Yes Status: Acute Code(s): E11.622 - TYPE 2 DIABETES MELLITUS WITH OTHER SKIN ULCER; L98.499 - NON-PRESSURE CHRONIC ULCER OF SKIN OF SITES W UNSP SEVERITY SNOMED Code(s): 88511620 (4) Diabetic ketoacidosis Current Visit: Yes Status: Acute Code(s): E13.10 - OTH DIABETES MELLITUS WITH KETOACIDOSIS WITHOUT COMA SNOMED Code(s): 799105471 (5) Nonhealing skin ulcer with fat layer exposed Current Visit: Yes Status: Acute Code(s): L98.492 - NON-PRS CHRONIC ULCER OF SKIN OF SITES W FAT LAYER EXPOSED SNOMED Code(s): 68472151 Plan: The clinical findings are discussed with the patient and his nurse. Dressing is changed today. No plan for surgery today. He may resume his normal diet. We will make him nothing by mouth after midnight again tonight and reassess in the morning tomorrow. Continue care. Antibiotics per infectious disease.
[2020-05-24 09:47] LABS: Erythrocyte Sedimentation Rate 40 mm/hr (0-15)
[2020-05-24 11:55] LABS: Glucose,Whole Blood 329 mg/dL (75-99)
[2020-05-24] MEDS ORDERED: DEXTROSE 5%-0.45% NACL 1,000 ML IV SCH (14:45)
--- NOTE | 2020-05-24 16:46 | PN ---
PROGRESS NOTE DATE OF SERVICE: May 24, 2020. CHIEF COMPLAINT: DKA. HISTORY OF PRESENT ILLNESS: This gentleman is doing fairly well. Surgery yesterday resulted in the necessity of removing some of his left 5th finger. This area will be re-evaluated tomorrow for possible further resection. REVIEW OF SYSTEMS: He is not having a great deal of pain. Blood sugars are improved. He is not dizzy, short of breath, etc. PHYSICAL EXAM: Remains pale. Chest is clear. The cardiac exam is normal. Abdomen is soft, nontender. IMPRESSION: 1. Diabetic ketoacidosis. 2. Uncontrolled type 1 insulin-dependent diabetes mellitus. 3. Status post partial amputation of left 5th digit for cellulitis and osteomyelitis. MMODL / IJN: [id number] /
[2020-05-24 17:05] LABS: Glucose,Whole Blood 106 mg/dL (75-99)
[2020-05-24 20:55] LABS: Glucose,Whole Blood 219 mg/dL (75-99)
--- NOTE | 2020-05-24 22:15 | PN ---
PROGRESS NOTE DATE OF SERVICE: 05/24/2020. REASON FOR FOLLOWUP: Left 5th fingertip MSSA abscess and cellulitis. INTERVAL HISTORY: The patient is currently afebrile. Overall pain and discomfort to the left 5th finger has improved after amputation of the distal phalanx. The patient denies having any chest pain or cough. No abdominal pain or diarrhea. PHYSICAL EXAMINATION: Blood pressure 120/78 with a pulse of 90, temperature 98.8. He is 99% on room air. General description is a middle-aged male lying in bed in no distress. Respiratory system: Unlabored breathing, clear to auscultation anteriorly. Heart S1, S2. Regular rate and rhythm. Abdomen soft, no tenderness. Left foot is currently dressed up. No obvious drainage on the dressing. LABS: Hemoglobin 13.1, white count 8.2, BUN of 11, creatinine 0.42. DIAGNOSTIC IMPRESSION AND PLAN: Patient with left 5th fingertip infection with abscess, status post amputation of the distal phalanx. Antibiotic adjusted to cefazolin 2 grams q.8 hours. Re-evaluate the wound tomorrow to determine the need for antibiotic IV on discharge. Continue supportive care. MMODL / IJN: [id number] /
[2020-05-25] MEDS: DEXTROSE 5%-0.45% NACL 1,000 ML IV SCH ×3 (00:55→15:57)
[2020-05-25] MEDS ORDERED: VANCOMYCIN TROUGH DUE 1 EACH MISC MISCELLANE ONE (04:00)
[2020-05-25] MEDS: HYDROmorphone 0.5 MG/0.5 ML SYRINGE IVP PRN ×4 (04:01→16:04)
[2020-05-25 06:52] LABS: Glucose,Whole Blood 300 mg/dL (75-99)
[2020-05-25] MEDS: INSULIN ASPART (NovoLOG) 100 UNIT/ML VIAL SQ SCH ×7 (07:01→20:43)
--- NOTE | 2020-05-25 09:28 | P.PN ---
Subjective Progress Note Date: 05/25/20 Principal diagnosis: Infection left little finger. Status post amputation left little finger at the PIP joint. This is a 30-year-old male who is status post amputation of the left little finger at the PIP joint for infection on 05/23/2020. He is stable from an orthopedic standpoint. He has no new complaints or concerns today. His vitals are stable. He has been nothing by mouth. Culture from 05/22/2020 reveals methicillin sensitive staph aureus. Objective - Vital Signs Vital signs: Vital Signs Temp 97 F L 05/25/20 08:00 Pulse 86 05/25/20 08:00 Resp 14 05/25/20 08:00 BP 102/55 05/25/20 08:00 Pulse Ox 97 05/25/20 08:00 Intake & Output 05/24/20 05/25/20 05/25/20 18:59 06:59 18:59 Intake Total 832 50 Output Total 700 Balance 132 50 Weight 54.8 kg Intake: Intake, IV Titration 50 Amount ceFAZolin 2 gm In Sodium 50 Chloride 0.9% 50 ml @ 100 mls/hr IVPB Q8HR [facility] Rx# :[id number] Oral 832 Output: Urine 700 Other: Voiding Method Toilet Toilet Urinal # Voids 0 2 - Exam This is a pleasant 30-year-old male in no acute distress. He is alert and oriented 3. Exam of the left little finger after dressing is removed reveals mild erythema. There is mild swelling. The 2 sutures are intact. He has normal motion at the MCP joint. No active drainage from the incision. - Labs CBC & Chem 7: 05/24/20 07:58 05/24/20 07:58 Labs: Abnormal Lab Results - Last 24 Hours (Table) 05/24/20 05/24/20 05/24/20 Range/Units 07:58 11:52 17:04 ESR 40 H (0-15) mm/hr POC Glucose (mg/dL) 329 H 106 H (75-99) mg/dL 05/24/20 05/25/20 Range/Units 20:47 06:51 ESR (0-15) mm/hr POC Glucose (mg/dL) 219 H 300 H (75-99) mg/dL Microbiology - Last 24 Hours (Table) 05/23/20 15:57 Gram Stain - Preliminary Finger - Left Fifth Wound Culture - Preliminary Presumptive Staph aureus 05/22/20 13:27 Gram Stain - Final Finger - Left Fifth Wound Culture - Final Staphylococcus aureus 05/22/20 13:27 Anaerobic Culture - Preliminary Finger - Left Fifth Assessment and Plan (1) Finger laceration Current Visit: Yes Status: Acute Code(s): S61.219A - LACERATION W/O FB OF UNSP FINGER W/O DAMAGE TO NAIL, INIT SNOMED Code(s): 999305151 (2) Osteomyelitis of finger of left hand Current Visit: Yes Status: Acute Code(s): M86.9 - OSTEOMYELITIS, UNSPECIFIED SNOMED Code(s): 21737599 (3) Diabetes with skin ulcer Current Visit: Yes Status: Acute Code(s): E11.622 - TYPE 2 DIABETES MELLITUS WITH OTHER SKIN ULCER; L98.499 - NON-PRESSURE CHRONIC ULCER OF SKIN OF SITES W UNSP SEVERITY SNOMED Code(s): 51644477 (4) Diabetic ketoacidosis Current Visit: Yes Status: Acute Code(s): E13.10 - OTH DIABETES MELLITUS WITH KETOACIDOSIS WITHOUT COMA SNOMED Code(s): 630057861 (5) Nonhealing skin ulcer with fat layer exposed Current Visit: Yes Status: Acute Code(s): L98.492 - NON-PRS CHRONIC ULCER OF SKIN OF SITES W FAT LAYER EXPOSED SNOMED Code(s): 84902669 Plan: The clinical findings are discussed with the patient and his nurse. Dressing is changed today. No plan for surgery today. He may resume his normal diet. He may be discharged to home when cleared with medicine and infectious disease. Antibiotics per infectious disease. He is to follow-up in our office on Tuesday.
[2020-05-25 10:32] LABS: Glucose,Whole Blood 191 mg/dL (75-99)
[2020-05-25] MEDS: INSULIN DETEMIR (LEVEMIR) 100 UNIT/ML SYR SQ SCH (10:35)
[2020-05-25 12:01] LABS: Glucose,Whole Blood 299 mg/dL (75-99)
[2020-05-25 17:24] LABS: Glucose,Whole Blood 77 mg/dL (75-99)
[2020-05-25 20:02] LABS: Glucose,Whole Blood 282 mg/dL (75-99)
[2020-05-25] MEDS: HYDROmorphone 1 MG/ML 1 ML SYRINGE IVP PRN ×2 (20:42→23:49)
[2020-05-26 00:20] VITALS: RESP 18
--- NOTE | 2020-05-26 01:17 | PN ---
PROGRESS NOTE DATE OF SERVICE: 05/25/2020 REASON FOR FOLLOWUP: Left fifth finger infection, MSSA. INTERVAL HISTORY: The patient is currently afebrile. Patient is feeling better. Breathing comfortably. Overall pain and discomfort in the left fifth finger area is improved. Denies having any chest pain or cough. No abdominal pain or diarrhea. PHYSICAL EXAMINATION: Blood pressure 113/77 with pulse of 80, temperature 97.2. He is 99% on room air. General description is a middle-aged male lying in bed in no distress. RESPIRATORY SYSTEM: Unlabored breathing, clear to auscultation anteriorly. HEART: S1, S2. Regular rate and rhythm. ABDOMEN: Soft, no tenderness. LABS: No new labs have been obtained today. Blood cultures were not done. Local culture with MSSA. DIAGNOSTIC IMPRESSION AND PLAN: Patient with left fifth finger tip infection status post amputation of the distal phalanx with infected part removed and if no significant cellulitis at the time of evaluation tomorrow, may switch to p.o., otherwise, may need a short course of IV antibiotic. Will discuss with director case management. MMMARQUITAL / IJN: [id number] /
[2020-05-26] MEDS: HYDROmorphone 1 MG/ML 1 ML SYRINGE IVP PRN ×3 (04:11→12:52)
[2020-05-26 04:43] VITALS: PULSE 79
[2020-05-26 06:11] LABS: Glucose,Whole Blood 207 mg/dL (75-99)
[2020-05-26] MEDS: DEXTROSE 5%-0.45% NACL 1,000 ML IV SCH (06:48)
[2020-05-26] MEDS: INSULIN DETEMIR (LEVEMIR) 100 UNIT/ML SYR SQ SCH (07:01)
[2020-05-26] MEDS: INSULIN ASPART (NovoLOG) 100 UNIT/ML VIAL SQ SCH ×4 (07:01→12:15)
--- NOTE | 2020-05-26 08:42 | P.PN ---
Subjective Progress Note Date: 05/26/20 Principal diagnosis: Infection left little finger. Status post amputation left little finger at the PIP joint. This is a 30-year-old male who is status post amputation of the left little finger at the PIP joint for infection on 05/23/2020. He is stable from an orthopedic standpoint. He has no new complaints or concerns today. His vitals are stable. Objective - Vital Signs Vital signs: Vital Signs Temp 97.4 F L 05/26/20 04:00 Pulse 79 05/26/20 04:00 Resp 18 05/26/20 04:00 BP 103/60 05/26/20 04:00 Pulse Ox 99 05/26/20 04:00 Intake & Output 05/25/20 05/26/20 05/26/20 18:59 06:59 18:59 Intake Total 100 Balance 100 Weight 58.6 kg Intake: IV 100 ceFAZolin 2 gm In Sodium 100 Chloride 0.9% 50 ml @ 100 mls/hr IVPB Q8HR [facility] Rx# :[id number] Other: Voiding Method Toilet Toilet # Voids 1 1 - Exam This is a pleasant 30-year-old male in no acute distress. He is alert and orien augustine 3. Exam of the left little finger after dressing is removed reveals minimal erythema. There is mild swelling. The 2 sutures are intact. He has normal motion at the MCP joint. No active drainage from the incision. - Labs CBC & Chem 7: 05/24/20 07:58 05/24/20 07:58 Labs: Abnormal Lab Results - Last 24 Hours (Table) 05/25/20 05/25/20 05/25/20 Range/Units 10:30 11:59 20:01 POC Glucose (mg/dL) 191 H 299 H 282 H (75-99) mg/dL 05/26/20 Range/Units 06:10 POC Glucose (mg/dL) 207 H (75-99) mg/dL Microbiology - Last 24 Hours (Table) 05/23/20 15:57 Anaerobic Culture - Preliminary Finger - Left Fifth 05/23/20 15:57 Gram Stain - Final Finger - Left Fifth Wound Culture - Final Staphylococcus aureus Assessment and Plan (1) Finger laceration Current Visit: Yes Status: Acute Code(s): S61.219A - LACERATION W/O FB OF UNSP FINGER W/O DAMAGE TO NAIL, INIT SNOMED Code(s): 021127748 (2) Osteomyelitis of finger of left hand Current Visit: Yes Status: Acute Code(s): M86.9 - OSTEOMYELITIS, UNSPECIFIED SNOMED Code(s): 95286734 (3) Diabetes with skin ulcer Current Visit: Yes Status: Acute Code(s): E11.622 - TYPE 2 DIABETES MELLITUS WITH OTHER SKIN ULCER; L98.499 - NON-PRESSURE CHRONIC ULCER OF SKIN OF SITES W UNSP SEVERITY SNOMED Code(s): 64634434 (4) Diabetic ketoacidosis Current Visit: Yes Status: Acute Code(s): E13.10 - OTH DIABETES MELLITUS WITH KETOACIDOSIS WITHOUT COMA SNOMED Code(s): 138612056 (5) Nonhealing skin ulcer with fat layer exposed Current Visit: Yes Status: Acute Code(s): L98.492 - NON-PRS CHRONIC ULCER OF SKIN OF SITES W FAT LAYER EXPOSED SNOMED Code(s): 00445616 Plan: The clinical findings are discussed with the patient and his nurse. Dressing is changed today. He may be discharged to home when cleared with medicine and infectious disease. Antibiotics per infectious disease. He is to follow-up in our office on Tuesday.
[2020-05-26 09:59] LABS: African American GFR (CKD) >90 (>60 ml/min/1.73 sqM); Anion Gap 6 mmol/L; Blood Urea Nitrogen 19 mg/dL (9-20); Calcium 9.6 mg/dL (8.4-10.2); Carbon Dioxide 30 mmol/L (22-30); Chloride 99 mmol/L (98-107); Glucose 212 mg/dL (74-99); Non-African American GFR(CKD) >90 (>60 ml/min/1.73 sqM); Potassium 4.9 mmol/L (3.5-5.1); Sodium 135 mmol/L (137-145)
[2020-05-26 10:03] LABS: Basophils # (A) 0.1 k/uL (0-0.2); Basophils % (A) 1 %; Eosinophils # (A) 0.2 k/uL (0-0.7); Eosinophils % (A) 4 %; HCT 42.6 % (39.0-53.0); HGB 13.8 gm/dL (13.0-17.5); Lymphocytes # (A) 2.6 k/uL (1.0-4.8); Lymphocytes % (A) 40 %; MCHC 32.5 g/dL (31.0-37.0); MCV 92.5 fL (80.0-100.0); Monocytes # (A) 0.4 k/uL (0-1.0); Monocytes % (A) 7 %; Neutrophils # (A) 2.9 k/uL (1.3-7.7); Neutrophils % (A) 46 %; Platelet Count 604 k/uL (150-450); RDW 13.8 % (11.5-15.5); WBC 6.4 k/uL (3.8-10.6)
[2020-05-26 11:36] LABS: Glucose,Whole Blood 60 mg/dL (75-99)
[2020-05-26 12:07] LABS: Erythrocyte Sedimentation Rate 42 mm/hr (0-15)
[2020-05-26 15:51] VITALS: BP 135/83; TEMP 97.9
--- NOTE | 2020-05-26 20:07 | PN ---
PROGRESS NOTE DATE OF SERVICE: 05/25/2020 CHIEF COMPLAINT: Diabetic ketoacidosis and infection of the left fifth finger. HISTORY OF PRESENT ILLNESS: This gentleman is doing fairly well. His sugars are fairly well controlled. He is having some discomfort in the hand. We are awaiting recommendations for antibiotics for discharge. PHYSICAL EXAMINATION: His chest is clear. Cardiac exam is normal. The abdomen is soft, nontender. Dressings on the left hand are dry. IMPRESSION: 1. Status post partial amputation of left fifth finger for bacterial infection of the laceration. 2. Diabetic ketoacidosis. 3. Uncontrolled type 1 insulin-dependent diabetes mellitus. PLAN: Home as soon as he is cleared by Infectious Disease. MMODL / IJN: [id number] /
[2020-05-26] MEDS ORDERED: AMOXIC-POT CLAV 875-125MG 1 EACH TAB PO SCH (21:00)
--- NOTE | 2020-05-26 21:54 | DS ---
DISCHARGE SUMMARY CHIEF COMPLAINT: DKA. HISTORY OF PRESENT ILLNESS AND PHYSICAL EXAMINATION: Details of this man's history and physical can be found in the initial workup. LABORATORY STUDIES: While he was in the hospital he had laboratory studies, details of which can be found in the laboratory section of his chart. COURSE IN THE HOSPITAL: After admission he was placed on bedrest and started on intravenous fluids. His blood sugars were brought down. He was rehydrated. He complained of a laceration on his left fifth finger which was becoming infected and he was started on vancomycin and seen by Orthopedics and Infectious Disease. He was taken to the operating room for debridement, where part of the left fifth finger had to be amputated down to about the PIP joint. Postoperatively he was doing well. It was felt that he could go home on 05/26 on his usual diabetic diet, basal bolus insulin program and Augmentin for the finger. He will be followed up in several days. FINAL DIAGNOSES: 1. Diabetic ketoacidosis. 2. Dehydration. 3. Secondary bacterial infection of the laceration the left fifth finger. OPERATION: Partial amputation of the left fifth finger. CONSULTATION: Orthopedics. He is improved. MMODL / IJN: [id number] /
== END 2020-05-26 14:44 | disposition home or self-care (01) | DRG 987 ==
LOC: EC 22:17 → 3SCARD 05-21 01:20
PROVIDERS: ADMIT Family Medicine; ATTEND Family Medicine
PROC: 0X6W0Z1 Detachment at Left Little Finger, High, Open Approach (ICD-10-PCS; principal; 2020-05-23 13:40)
DX: E10.69 Type 1 diabetes mellitus with other specified complication (principal); M72.6 Necrotizing fasciitis; M86.9 Osteomyelitis, unspecified; L02.512 Cutaneous abscess of left hand; E10.622 Type 1 diabetes mellitus with other skin ulcer; L98.492 Non-pressure chronic ulcer of skin of other sites with fat layer exposed; B95.61 Methicillin susceptible Staphylococcus aureus infection as the cause of diseases classified elsewhere; E10.10 Type 1 diabetes mellitus with ketoacidosis without coma; E10.43 Type 1 diabetes mellitus with diabetic autonomic (poly)neuropathy; E86.0 Dehydration; F31.9 Bipolar disorder, unspecified; J45.909 Unspecified asthma, uncomplicated; K31.84 Gastroparesis; F41.9 Anxiety disorder, unspecified; G43.909 Migraine, unspecified, not intractable, without status migrainosus; M19.042 Primary osteoarthritis, left hand; M19.041 Primary osteoarthritis, right hand; M17.0 Bilateral primary osteoarthritis of knee; E10.42 Type 1 diabetes mellitus with diabetic polyneuropathy; L03.012 Cellulitis of left finger; F17.210 Nicotine dependence, cigarettes, uncomplicated; T38.3X6A Underdosing of insulin and oral hypoglycemic [antidiabetic] drugs, initial encounter; Z79.4 Long term (current) use of insulin; Z86.14 Personal history of Methicillin resistant Staphylococcus aureus infection; Z91.040 Latex allergy status; Z87.81 Personal history of (healed) traumatic fracture; Z98.890 Other specified postprocedural states; Z82.49 Family history of ischemic heart disease and other diseases of the circulatory system; Z82.5 Family history of asthma and other chronic lower respiratory diseases; Z84.89 Family history of other specified conditions
CPT/HCPCS: 36415; 80048; 80051; 80053; 80202; 81001; 82009; 82565; 82803; 82947; 83036; 83735; 84100; 84520; 85025; 85652; 86140; 87070; 87075; 87077; 87186; 87205; 88305; 88311; 93005; 96361; 96374; 96375; 99291

== ENCOUNTER 2020-10-08 20:10 | Inpatient (IN) | payer OTHER ==
[2020-10-08] MEDS ORDERED: SODIUM CHLORIDE 0.9% 1,000 ML IV STA (20:28)
[2020-10-08] MEDS ORDERED: ONDANSETRON 4 MG/2 ML VIAL IVP STA (20:28)
[2020-10-08 20:31] LABS: Glucose,Whole Blood >600 mg/dL (75-99)
--- NOTE | 2020-10-08 20:48 | ED ---
General Adult HPI - General Chief complaint: Nausea/Vomiting/Diarrhea Stated complaint: Hyperglycemia Time Seen by Provider: 10/08/20 20:27 Source: patient, EMS Mode of arrival: EMS Limitations: no limitations - History of Present Illness Initial comments: Dictation was produced using [employer] dictation software. please excuse any grammatical, word or spelling errors. This patient was cared for during a federal and state declared state of emergen cy secondary to Covid 19 Chief Complaint: 30-year-old male presents with elevated sugars and concerns of DKA History of Present Illness: Is a 30-year-old male he is past medical history ty pe 1 diabetes. Patient states that his sugars have been running high. The last 3 days she's been developing abdominal pain. Patient states that he has had DKA several months ago. His symptoms feel similar. He is been thrown up for the last 3 days constantly. He has been retching with some blood-tinged emesis. Patient states she's been taking his insulin like he is supposed to. Denies any fevers, chills or night sweats. Does have some mild abdominal pain he states is from thrown up constantly. Emesis, patient about the emergency department. EMSs blood glucose was measured at 298. The ROS documented in this emergency department record has been reviewed and confirmed by me. Those systems with pertinent positive or negative responses have been documented in the HPI. All other systems are other negative and/or noncontributory. PHYSICAL EXAM: General Impression: Alert and oriented x3, acute distress secondary to nausea, smells of acetone HEENT: Normocephalic atraumatic, extra-ocular movements intact, pupils equal and reactive to light bilaterally, mucous membranes moist. Cardiovascular: Heart regular rate and rhythm Chest: Able to complete full sentences, no retractions, no tachypnea Abdomen: abdomen soft, mild diffuse abdominal tenderness to palpation, non- distended, no organomegaly Musculoskeletal: Pulses present and equal in all extremities, no peripheral edema Motor: no focal deficits noted Neurological: CN II-XII grossly intact, no focal motor or sensory deficits noted Skin: Intact with no visualized rashes Psych: Normal affect and mood ED course: 30-year-old male presents clinical presentation consistent with diabetic ketoacidosis. Laboratory evaluation obtained. CBC is unremarkable. Venous blood gas shows pH 7.2, bicarb of 19, sodium 129 from pseudohyponatremia from hyperglycemia. Bicarb 13 anion gap 38. Acetone positive. Patient be admitted for DKA. EKG protocol initiated. Patient started on insulin drip. Patient be admitted to Dr. Dawn. Case also discussed with Dr. Blair who is willing to accept patients care to the ICU. EKG interpretation: Ventricular rate 122, sinus tachycardia, MS interval 112, QRS 72, QTC 470. No MS prolongation, no QTC prolongation, no ST or T-wave changes noted. Overall, this EKG is unremarkable - Related Data Home Medications Medication Instructions Recorded Confirmed INSULIN ASPART (NovoLOG) [NovoLOG 10 unit SQ AC-TID 10/08/20 10/08/20 (formulary)] Insulin Detemir (Levemir) [Levemir] 41 unit SQ HS 10/08/20 10/08/20 Allergies Allergy/AdvReac Type Severity Reaction Status Date / Time latex Allergy Rash/Hives Verified 10/08/20 21:37 Review of Systems ROS Statement: Those systems with pertinent positive or pertinent negative responses have been documented in the HPI. ROS Other: All systems not noted in ROS Statement are negative. Past Medical History Past Medical History: Asthma, Diabetes Mellitus, Osteoarthritis (OA) Additional Past Medical History / Comment(s): IDDM type I, diabetic gastroparesis, neuropathy bilateral hands/fingers, migraines, arthrtitis fingers/knees, past R hand and L femur fractures. History of Any Multi-Drug Resistant Organisms: MRSA Date of last positivie culture/infection: 04/26/2014 MDRO Source:: Face Past Surgical History: Ear Surgery, Orthopedic Surgery Additional Past Surgical History / Comment(s): R hand surgery d/t fracture- pinned and pins since removed, L leg femur fracture with pin that eventually was removed, bilateral myringotomy with tubes/ear drum repairs. Past Anesthesia/Blood Transfusion Reactions: No Reported Reaction Past Psychological History: Anxiety, Bipolar, Depression Smoking Status: Current every day smoker Past Alcohol Use History: None Reported Past Drug Use History: Marijuana - Past Family History Father Family Medical History: Hyperlipidemia, Hypertension Mother Family Medical History: COPD Additional Family Medical History / Comment(s): home O2, Brother(s) Family Medical History: No Reported History General Exam Limitations: no limitations Course Vital Signs 10/08/20 20:19 Temperature 97.9 F Pulse Rate 123 H Respiratory 20 Rate Blood Pressure 138/88 O2 Sat by Pulse 98 Oximetry Medical Decision Making - Lab Data Result diagrams: 10/08/20 20:49 10/08/20 20:49 Lab Results 10/08/20 10/08/20 10/08/20 Range/Units 20:26 20:49 20:49 WBC 12.4 H (3.8-10.6) k/uL RBC 5.93 H (4.30-5.90) m/uL Hgb 18.0 H (13.0-17.5) gm/dL Hct 56.7 H (39.0-53.0) % MCV 95.5 (80.0-100.0) fL MCH 30.3 (25.0-35.0) pg MCHC 31.8 (31.0-37.0) g/dL RDW 13.9 (11.5-15.5) % Plt Count 234 (150-450) k/uL MPV 10.2 Neutrophils % 81 % Lymphocytes % 13 % Monocytes % 4 % Eosinophils % 0 % Basophils % 0 % Neutrophils # 10.1 H (1.3-7.7) k/uL Lymphocytes # 1.7 (1.0-4.8) k/uL Monocytes # 0.5 (0-1.0) k/uL Eosinophils # 0.0 (0-0.7) k/uL Basophils # 0.1 (0-0.2) k/uL VBG pH (7.31-7.41) VBG pCO2 (37-51) mmHg VBG HCO3 (24-28) mmol/L Sodium 129 L (137-145) mmol/L Potassium 5.2 H (3.5-5.1) mmol/L Chloride 78 L (98-107) mmol/L Carbon Dioxide 13 L (22-30) mmol/L Anion Gap 38 mmol/L BUN 40 H (9-20) mg/dL Creatinine 0.99 (0.66-1.25) mg/dL Est GFR (CKD-EPI)AfAm >90 (>60 ml/min/1.73 sqM) Est GFR (CKD-EPI)NonAf >90 (>60 ml/min/1.73 sqM) Glucose 778 H* (74-99) mg/dL POC Glucose (mg/dL) >600 H (75-99) mg/dL POC Glu [employer] ID Gwen Sauceda Calcium 9.8 (8.4-10.2) mg/dL Phosphorus 8.6 H (2.5-4.5) mg/dL Magnesium 2.0 (1.6-2.3) mg/dL Total Bilirubin 1.3 (0.2-1.3) mg/dL AST 87 H (17-59) U/L ALT 49 (4-49) U/L Alkaline Phosphatase 258 H (38-126) U/L Total Protein 8.4 H (6.3-8.2) g/dL Albumin 5.0 (3.5-5.0) g/dL Lipase 64 (23-300) U/L Acetone, Qual Positive (Negative) 10/08/20 Range/Units 20:49 WBC (3.8-10.6) k/uL RBC (4.30-5.90) m/uL Hgb (13.0-17.5) gm/dL Hct (39.0-53.0) % MCV (80.0-100.0) fL MCH (25.0-35.0) pg MCHC (31.0-37.0) g/dL RDW (11.5-15.5) % Plt Count (150-450) k/uL MPV Neutrophils % % Lymphocytes % % Monocytes % % Eosinophils % % Basophils % % Neutrophils # (1.3-7.7) k/uL Lymphocytes # (1.0-4.8) k/uL Monocytes # (0-1.0) k/uL Eosinophils # (0-0.7) k/uL Basophils # (0-0.2) k/uL VBG pH 7.28 L (7.31-7.41) VBG pCO2 41 (37-51) mmHg VBG HCO3 19 L (24-28) mmol/L Sodium (137-145) mmol/L Potassium (3.5-5.1) mmol/L Chloride (98-107) mmol/L Carbon Dioxide (22-30) mmol/L Anion Gap mmol/L BUN (9-20) mg/dL Creatinine (0.66-1.25) mg/dL Est GFR (CKD-EPI)AfAm (>60 ml/min/1.73 sqM) Est GFR (CKD-EPI)NonAf (>60 ml/min/1.73 sqM) Glucose (74-99) mg/dL POC Glucose (mg/dL) (75-99) mg/dL POC Glu [employer] Super[employer] ID Calcium (8.4-10.2) mg/dL Phosphorus (2.5-4.5) mg/dL Magnesium (1.6-2.3) mg/dL Total Bilirubin (0.2-1.3) mg/dL AST (17-59) U/L ALT (4-49) U/L Alkaline Phosphatase (38-126) U/L Total Protein (6.3-8.2) g/dL Albumin (3.5-5.0) g/dL Lipase (23-300) U/L Acetone, Qual (Negative) Critical Care Time Critical Care Time: Yes Total Critical Care Time: 33 Disposition Clinical Impression: DKA (diabetic ketoacidoses) Disposition: ADMITTED IP TO THIS [facility] Condition: Critical Referrals: Miki Dawn MD [Primary Care Provider] - 1-2 days Decision Time: 22:34
[2020-10-08 21:15] LABS: VBG PH 7.28 (7.31-7.41)
[2020-10-08 21:24] LABS: Basophils # (A) 0.1 k/uL (0-0.2); Basophils % (A) 0 %; Eosinophils % (A) 0 %; Lymphocytes # (A) 1.7 k/uL (1.0-4.8); Lymphocytes % (A) 13 %; MCH 30.3 pg (25.0-35.0); MCHC 31.8 g/dL (31.0-37.0); MCV 95.5 fL (80.0-100.0); Mean Platelet Volume 10.2; Monocytes # (A) 0.5 k/uL (0-1.0); Monocytes % (A) 4 %; Neutrophils # (A) 10.1 k/uL (1.3-7.7); Neutrophils % (A) 81 %; Platelet Count 234 k/uL (150-450); RBC 5.93 m/uL (4.30-5.90); RDW 13.9 % (11.5-15.5); WBC 12.4 k/uL (3.8-10.6)
[2020-10-08 21:26] LABS: HCT 56.7 % (39.0-53.0)
[2020-10-08 21:39] LABS: Anion Gap 38 mmol/L; Carbon Dioxide 13 mmol/L (22-30); Chloride 78 mmol/L (98-107); Potassium 5.2 mmol/L (3.5-5.1); Sodium 129 mmol/L (137-145)
[2020-10-08 21:40] LABS: ALT 49 U/L (4-49); AST 87 U/L (17-59); African American GFR (CKD) >90 (>60 ml/min/1.73 sqM); Alkaline Phosphatase 258 U/L (38-126); Blood Urea Nitrogen 40 mg/dL (9-20); Calcium 9.8 mg/dL (8.4-10.2); Lipase 64 U/L (23-300); Non-African American GFR(CKD) >90 (>60 ml/min/1.73 sqM); Phosphorus 8.6 mg/dL (2.5-4.5); Total Bilirubin 1.3 mg/dL (0.2-1.3); Total Protein 8.4 g/dL (6.3-8.2)
[2020-10-08 21:41] LABS: Glucose 778 mg/dL (74-99)
[2020-10-08] MEDS ORDERED: Potassium Replacement Protocol 1 EACH MISC MISCELLANE PRN (21:48)
[2020-10-08] MEDS ORDERED: INSULIN REGULAR BOLUS (FROM DRIP BAG) IV ONE (21:48)
[2020-10-08] MEDS ORDERED: Magnesium Replacement Protocol 1 EACH MISC MISCELLANE PRN (21:48)
[2020-10-08] MEDS ORDERED: SODIUM CHLORIDE 0.9% 1,000 ML IV SCH (22:00)
[2020-10-08] MEDS ORDERED: INSULIN REGULAR 100 UNIT in SODIUM CHLORIDE 0.9% 100 ML IV SCH (22:00)
[2020-10-08] MEDS ORDERED: NALOXONE 0.4 MG/ML 1 ML VIAL IV PRN (22:29)
[2020-10-08 23:24] LABS: Glucose,Whole Blood >600 mg/dL (75-99)
[2020-10-09 00:25] LABS: Glucose,Whole Blood 535 mg/dL (75-99)
[2020-10-09 01:23] LABS: Glucose,Whole Blood 327 mg/dL (75-99)
[2020-10-09 01:44] LABS: African American GFR (CKD) >90 (>60 ml/min/1.73 sqM); Anion Gap 29 mmol/L; Blood Urea Nitrogen 44 mg/dL (9-20); Carbon Dioxide 21 mmol/L (22-30); Chloride 89 mmol/L (98-107); Glucose 368 mg/dL (74-99); Non-African American GFR(CKD) >90 (>60 ml/min/1.73 sqM); Phosphorus 7.1 mg/dL (2.5-4.5); Potassium 4.4 mmol/L (3.5-5.1); Sodium 139 mmol/L (137-145)
[2020-10-09 02:21] LABS: Glucose,Whole Blood 265 mg/dL (75-99)
[2020-10-09] MEDS: D5-0.45% NACL WITH KCL 20MEQ/L 1,000 ML IV SCH (02:38)
[2020-10-09 03:14] LABS: Glucose,Whole Blood 202 mg/dL (75-99)
[2020-10-09 04:10] LABS: Glucose,Whole Blood 219 mg/dL (75-99)
[2020-10-09 05:17] LABS: Glucose,Whole Blood 153 mg/dL (75-99)
[2020-10-09 06:26] LABS: Glucose,Whole Blood 132 mg/dL (75-99)
[2020-10-09 06:35] LABS: African American GFR (CKD) >90 (>60 ml/min/1.73 sqM); Anion Gap 11 mmol/L; Blood Urea Nitrogen 41 mg/dL (9-20); Carbon Dioxide 31 mmol/L (22-30); Chloride 93 mmol/L (98-107); Glucose 150 mg/dL (74-99); Non-African American GFR(CKD) >90 (>60 ml/min/1.73 sqM); Phosphorus 2.6 mg/dL (2.5-4.5); Potassium 4.5 mmol/L (3.5-5.1); Sodium 135 mmol/L (137-145)
[2020-10-09 07:05] LABS: Glucose,Whole Blood 118 mg/dL (75-99)
[2020-10-09 08:14] LABS: Glucose,Whole Blood 195 mg/dL (75-99)
[2020-10-09 08:43] LABS: African American GFR (CKD) >90 (>60 ml/min/1.73 sqM); Anion Gap 10 mmol/L; Blood Urea Nitrogen 32 mg/dL (9-20); Carbon Dioxide 29 mmol/L (22-30); Chloride 93 mmol/L (98-107); Glucose 222 mg/dL (74-99); Non-African American GFR(CKD) >90 (>60 ml/min/1.73 sqM); Potassium 4.2 mmol/L (3.5-5.1); Sodium 132 mmol/L (137-145)
[2020-10-09 09:04] LABS: Glucose,Whole Blood 230 mg/dL (75-99)
[2020-10-09 10:17] LABS: Glucose,Whole Blood 392 mg/dL (75-99)
[2020-10-09 11:10] VITALS: BMI 17.2
[2020-10-09 11:10] LABS: Glucose,Whole Blood 373 mg/dL (75-99)
[2020-10-09] MEDS ORDERED: ONDANSETRON 4 MG/2 ML VIAL IVP PRN (11:11)
--- NOTE | 2020-10-09 11:18 | P.CNPUL ---
History of Present Illness Consult date: 10/09/20 Chief complaint: Abdominal pain and hyperglycemia History of present illness: 30-year-old male patient, type I diabetic, presented emergency department with some abdominal pain and elevated blood sugar. He was diagnosed having DKA. He was throwing up for the past 3 days. He was also retching and he had some blood-tinged emesis. He wasn't taken his insulin the way supposed and for that reason he came in with a acute DKA. EMS noted his blood sugar to be at 298. In the ED, the patient had a pH of 7.2 based on a VBG, CBC was unremarkable, the electrolytes showed a anion gap metabolic acidosis and the patient's serum bicarb was 15 and anion gap was at 38. His initial blood sugar was above 600 and his sodium level was low at 129, mild elevation of the AST and ALP at 87 and 49 respectively, with alkaline phosphatase Phosphatase elevated at 258, bilirubin was at 1.3, lipase was 64, acetone was obviously positive. Creatinine was 0.9 with a BUN of 40. He was started on insulin drip. Currently he is gap is down to 10 and his serum bicarbonate was up to 29. His creatinine is at 0.6. Blood sugar most recent is down to 222. COVID-19 testing was negative. The patient is awake and alert and he is slightly nauseated. Abdominal pain is subsided. He is on D5 half-normal saline at 100 mL an hour. He is also on insulin drip at 1 units an hour. Long-acting insulin will be ordered for nighttime. He typically takes Lantus insulin 41 units along with 10 units of NovoLog with meals. Check his HbA1c recently. He has no other complications related to diabetes mellitus. Denies neuropathy. Denies erectile dysfunction. Denies retinopathy. Review of Systems Constitutional: Reports fatigue, Reports weakness Eyes: denies as per HPI, denies blurred vision, denies bulging eye, denies decreased vision, denies diplopia, denies discharge, denies dry eye, denies irritation, denies itching, denies pain, denies photophobia, denies loss of peripheral vision, denies loss of vision, denies tunnel vision/blind spots Ears: deny: decreased hearing, ear discharge, earache, tinnitus Ears, nose, mouth and throat: Reports as per HPI Breasts: absent: as per HPI, gynecomastia Cardiovascular: Reports as per HPI Respiratory: Reports as per HPI Gastrointestinal: Reports abdominal pain, Reports nausea, Reports vomiting Genitourinary: Reports as per HPI Musculoskeletal: Reports as per HPI Musculoskeletal: absent: ankle pain, ankle stiffness, ankle swelling, as per HPI, elbow pain, elbow stiffness, elbow swelling, foot pain, foot stiffness, aria t swelling, hand pain, hand stiffness, hand swelling, hip pain, hip stiffness, hip swelling, knee pain, knee stiffness, knee swelling, shoulder pain, shoulder stiffness, shoulder swelling, wrist pain, wrist stiffness, wrist swelling Integumentary: Reports as per HPI Neurological: Reports as per HPI Psychiatric: Reports as per HPI Endocrine: Reports high blood sugars Hematologic/Lymphatic: Reports as per HPI Allergic/Immunologic: Reports as per HPI Past Medical History Past Medical History: Asthma, Diabetes Mellitus, Osteoarthritis (OA) Additional Past Medical History / Comment(s): IDDM type I, diabetic gastroparesis, neuropathy bilateral hands/fingers, migraines, arthrtitis fi ngers/knees, past R hand and L femur fractures. History of Any Multi-Drug Resistant Organisms: MRSA Date of last positivie culture/infection: 04/26/2014 MDRO Source:: Face Past Surgical History: Ear Surgery, Orthopedic Surgery Additional Past Surgical History / Comment(s): R hand surgery d/t fracture- pinned and pins since removed, L leg femur fracture with pin that eventually was removed, bilateral myringotomy with tubes/ear drum repairs. Past Anesthesia/Blood Transfusion Reactions: No Reported Reaction Past Psychological History: Anxiety, Bipolar, Depression Additional Psychological History / Comment(s): Pt states he lives with his brother at this time. He is . Smoking Status: Current every day smoker Past Alcohol Use History: None Reported Additional Past Alcohol Use History / Comment(s): Pt started smoking in 2002 and is a half ppd smoker. Past Drug Use History: Marijuana Additional Drug Use History / Comment(s): Occasional marijuana use. Pt states h e no longer uses meth, when asked last time he used, he answers, "Its been awhile." - Past Family History Father Family Medical History: Hyperlipidemia, Hypertension Mother Family Medical History: COPD Additional Family Medical History / Comment(s): home O2, Brother(s) Family Medical History: No Reported History Medications and Allergies Home Medications Medication Instructions Recorded Confirmed Type INSULIN ASPART (NovoLOG) [NovoLOG 10 unit SQ AC-TID 10/08/20 10/08/20 History (formulary)] Insulin Detemir (Levemir) [Levemir] 41 unit SQ HS 10/08/20 10/08/20 History Allergies Allergy/AdvReac Type Severity Reaction Status Date / Time latex Allergy Rash/Hives Verified 10/08/20 21:37 Physical Exam Vitals: Vital Signs Temp Pulse Pulse Resp BP BP Pulse Ox 10/09/20 09:33 98.6 F 103 H 18 144/91 99 10/09/20 03:16 98.0 F 120 H 18 171/97 97 10/09/20 02:55 128 H 16 137/92 97 10/09/20 01:00 124 H 18 134/96 97 10/09/20 00:00 128 H 18 143/103 98 10/08/20 23:00 130 H 18 160/106 97 10/08/20 22:00 129 H 18 144/88 98 10/08/20 21:23 131 H 18 139/97 98 10/08/20 20:19 97.9 F 123 H 20 138/88 98 Intake and Output 10/08/20 10/09/20 10/09/20 22:59 06:59 14:59 Intake Total 62.122 601.467 Balance 62.122 601.467 Intake: Intake, IV Titration 62.122 1.467 Amount Insulin Regular 100 unit 62.122 1.467 In Sodium Chloride 0.9% 100 ml @ 0.1 UNITS/KG/HR 6.185 mls/hr IV .[id number] [facility] Rx#:[id number] Oral 600 Other: # Voids 1 Weight 61.235 kg 54.5 kg 54.5 kg The patient appeared well nourished and normally developed. Vital signs as documented. Head exam is unremarkable. No scleral icterus or corneal arcus noted. Neck is without jugular venous distension, thyromegaly, or carotid bruits. Carotid upstrokes are brisk bilaterally. Lungs are clear to auscultation and percussion. Very poor dental status and multiple decayed and carried teeth. Cardiac exam reveals the PMI to be normally sized and situated. Rhythm is regular. First and second heart sounds normal. No murmurs, rubs or gallops. Abdominal exam reveals normal bowel sounds, no masses, no organomegaly and no aortic enlargement. Extremities are nonedematous and both femoral and pedal pulses are normal. There is a partial amputation of the left pinky finger .skin revealed no evidence of significant rashes, suspicious appearing nevi or other concerning lesions.Neurologically, the patient is awake and alert and the patient does not have any focal neurological deficit. Cranial nerves are essentially intact. Results - Laboratory Findings CBC and BMP: 10/08/20 20:49 10/09/20 08:19 Abnormal lab findings: Abnormal Labs 10/08/20 10/08/20 10/08/20 20:26 20:49 20:49 WBC 12.4 H RBC 5.93 H Hgb 18.0 H Hct 56.7 H Neutrophils # 10.1 H VBG pH VBG HCO3 Sodium 129 L Potassium 5.2 H Chloride 78 L Carbon Dioxide 13 L BUN 40 H Glucose 778 H* POC Glucose (mg/dL) >600 H Phosphorus 8.6 H AST 87 H Alkaline Phosphatase 258 H Total Protein 8.4 H 10/08/20 10/08/20 10/09/20 20:49 23:21 00:23 WBC RBC Hgb Hct Neutrophils # VBG pH 7.28 L VBG HCO3 19 L Sodium Potassium Chloride Carbon Dioxide BUN Glucose POC Glucose (mg/dL) >600 H 535 H Phosphorus AST Alkaline Phosphatase Total Protein 10/09/20 10/09/20 10/09/20 01:01 01:22 02:20 WBC RBC Hgb Hct Neutrophils # VBG pH VBG HCO3 Sodium Potassium Chloride 89 L Carbon Dioxide 21 L BUN 44 H Glucose 368 H POC Glucose (mg/dL) 327 H 265 H Phosphorus 7.1 H AST Alkaline Phosphatase Total Protein 10/09/20 10/09/20 10/09/20 03:11 04:03 05:14 WBC RBC Hgb Hct Neutrophils # VBG pH VBG HCO3 Sodium Potassium Chloride Carbon Dioxide BUN Glucose POC Glucose (mg/dL) 202 H 219 H 153 H Phosphorus AST Alkaline Phosphatase Total Protein 10/09/20 10/09/20 10/09/20 05:20 06:24 07:03 WBC RBC Hgb Hct Neutrophils # VBG pH VBG HCO3 Sodium 135 L Potassium Chloride 93 L Carbon Dioxide 31 H BUN 41 H Glucose 150 H POC Glucose (mg/dL) 132 H 118 H Phosphorus AST Alkaline Phosphatase Total Protein 10/09/20 10/09/20 10/09/20 08:13 08:19 09:02 WBC RBC Hgb Hct Neutrophils # VBG pH VBG HCO3 Sodium 132 L Potassium Chloride 93 L Carbon Dioxide BUN 32 H Glucose 222 H POC Glucose (mg/dL) 195 H 230 H Phosphorus AST Alkaline Phosphatase Total Protein 10/09/20 10/09/20 10:15 11:07 WBC RBC Hgb Hct Neutrophils # VBG pH VBG HCO3 Sodium Potassium Chloride Carbon Dioxide BUN Glucose POC Glucose (mg/dL) 392 H 373 H Phosphorus AST Alkaline Phosphatase Total Protein Assessment and Plan Plan: 1 DKA in a 30-year-old male patient with known history of type 1 diabetes mellitus. Patient presented with anion gap metabolic acidosis and his anion gap closed and his serum bicarbonate has also normalized. Currently on insulin at 1 units an hour in addition to D5 half-normal saline running at 100 mL an hour. The patient will be transitioned to long-acting insulin. 2 type 1 diabetes mellitus 3 peripheral neuropathy 4 abdominal pain along with nausea and emesis, improving 5 elevated alkaline phosphatase with mild bilirubin elevation. 6 electrolytes disturbance secondary to DKA, improving Plan Offered this patient some nausea medication including Zofran Ultrasound the liver Urine drug screen We'll transition this patient to long-acting insulin. He will be given Levemir insulin 41 units along with scale and insulin drip will be discontinued. IV fluids can be also discontinued once the patient is able to tolerate oral i ntake. No need for ICU admission. The patient's anion gap is recovered and closed and will leave the rest of the management up to the medical team.
[2020-10-09 12:09] LABS: African American GFR (CKD) >90 (>60 ml/min/1.73 sqM); Anion Gap 15 mmol/L; Blood Urea Nitrogen 30 mg/dL (9-20); Carbon Dioxide 24 mmol/L (22-30); Chloride 90 mmol/L (98-107); Glucose 403 mg/dL (74-99); Non-African American GFR(CKD) >90 (>60 ml/min/1.73 sqM); Phosphorus 3.5 mg/dL (2.5-4.5); Potassium 4.8 mmol/L (3.5-5.1); Sodium 129 mmol/L (137-145)
[2020-10-09 12:19] LABS: Glucose,Whole Blood 353 mg/dL (75-99)
--- NOTE | 2020-10-09 12:45 | US ---
EXAMINATION TYPE: US abdomen limited DATE OF EXAM: 10/09/2020 COMPARISON: NONE CLINICAL HISTORY: Elevated alk phos. Nausea Exam done portable. EXAM MEASUREMENTS: Liver Length: 15.4 cm Gallbladder Wall: 0.2 cm CBD: 0.4 cm Right Kidney: 11.4 x 4.2 x 5.5 cm Pancreas: Visualized portions normal. Distal body and tail obscured by overlying bowel gas. Liver: Normal. Gallbladder: Normal. Vulcan[employer] Rubber Plate reports negative sonographic Hastings sign. CBD: Normal. Right Kidney: Normal. IMPRESSION: Normal ultrasound of the right upper quadrant.
[2020-10-09 13:05] LABS: Glucose,Whole Blood 363 mg/dL (75-99)
[2020-10-09] MEDS: INSULIN ASPART (NovoLOG) 100 UNIT/ML VIAL SQ SCH ×3 (13:33→21:31)
[2020-10-09] MEDS ORDERED: INSULIN DETEMIR (LEVEMIR) 100 UNIT/ML SYR SQ SCH ×2 (14:00→21:00)
[2020-10-09 16:37] LABS: Amphetamine Screen,Urine Not Detected (NotDetected); Barbiturate Screen,Urine Not Detected (NotDetected); Benzodiazepines Screen,Urine Not Detected (NotDetected); Cocaine Screen,Urine Not Detected (NotDetected); Methadone Screen, Urine Not Detected (NotDetected); Opiate Screen,Urine Not Detected (NotDetected); Oxycodone Screen, Urine Not Detected (NotDetected); Phencyclidine Screen,Urine Not Detected (NotDetected); Tricyclic Antidepressant,Urine Not Detected (NotDetected); Urn Cannabinoid Scrn Detected (NotDetected)
--- NOTE | 2020-10-09 16:59 | HP ---
HISTORY AND PHYSICAL CHIEF COMPLAINT: Nausea and vomiting. HISTORY OF PRESENT ILLNESS: This is another recent admission for this 30-year-old white male with insulin-dependent diabetes mellitus. He came to the emergency room in DKA. His gap was around 36. He states he has been taking his insulin. He is not sure why his sugar became uncontrolled. REVIEW OF SYSTEMS: He has had no headaches, focal neurologic deficits, problems with vision or hearing, chest pain, cough, shortness of breath, murmurs, rheumatic fever, abdominal pain, nausea, vomiting, hematemesis, melena, hematochezia, renal failure, frequency, urgency, dysuria, incontinence, nocturia, etc. Past medical history, family history, personal and social histories are all otherwise unremarkable or unchanged. He takes Lantus 41 units once a day and NovoLog or Humalog 10 units before meals. He is NOT ALLERGIC TO ANY MEDICATION. The only surgery that he has had is a procedure to remove the distal left finger, which was done recently secondary to an infection and osteomyelitis. He has also had a fracture of the left femur and he has had a procedure on his ears. He smokes a half pack of cigarettes a day. PHYSICAL EXAMINATION: Blood pressure is 118/70 with a pulse of 83, respirations of 34, and he is afebrile. In general he appeared to be slender and slightly dehydrated. Head, ears, eyes, nose, mouth and throat were normal. Neck veins were not distended. Thyroid was not enlarged. Chest was clear. Cardiac exam demonstrated sinus tachycardia. The abdomen is flat, soft and nontender without any masses or visceromegaly. Extremities are normal except for the left fifth finger, where it looks like there may be a bone protruding from the end of the amputation. Neurologically he is intact. He is admitted to the hospital with the diagnoses: 1. Diabetic ketoacidosis. 2. Nicotine abuse. 3. Dehydration. 4. Recent amputation of the distal left fifth finger for osteomyelitis. PLAN: 1. Bedrest. 2. IV fluids. 3. DKA protocol. MMODL / IJN: [id number] /
[2020-10-09 17:02] LABS: Glucose,Whole Blood 189 mg/dL (75-99)
--- NOTE | 2020-10-09 17:20 | PN ---
PROGRESS NOTE DATE OF SERVICE: 10/09/2020 CHIEF COMPLAINT: DKA. HISTORY OF PRESENT ILLNESS: This gentleman is doing a little bit better. His gap is closing. He is still somewhat nauseated. PHYSICAL EXAMINATION: Chest is clear. Cardiac exam is normal. The abdomen is flat and soft and nontender. Bowel sounds are present. Extremities are unchanged. IMPRESSION: 1. Diabetic ketoacidosis. 2. Status post amputation of the left fifth finger. 3. Dehydration. PLAN: Continue with DKA protocol and progress activity and diet. MMODL / IJN: [id number] /
[2020-10-09 20:10] VITALS: RESP 16
[2020-10-09 20:13] LABS: Glucose,Whole Blood 57 mg/dL (75-99)
[2020-10-09 20:24] LABS: Glucose,Whole Blood 105 mg/dL (75-99)
[2020-10-10] MEDS: D5-0.45% NACL WITH KCL 20MEQ/L 1,000 ML IV SCH (00:24)
[2020-10-10 02:02] LABS: Glucose,Whole Blood 53 mg/dL (75-99)
[2020-10-10 02:16] LABS: Glucose,Whole Blood 76 mg/dL (75-99)
[2020-10-10 05:49] LABS: Glucose,Whole Blood 78 mg/dL (75-99)
[2020-10-10] MEDS: INSULIN ASPART (NovoLOG) 100 UNIT/ML VIAL SQ SCH ×4 (09:36→12:35)
[2020-10-10 11:43] LABS: Glucose,Whole Blood 259 mg/dL (75-99)
[2020-10-10 11:55] VITALS: BP 126/78; PULSE 96; TEMP 98.9
--- NOTE | 2020-10-10 12:16 | P.PN ---
Subjective Progress Note Date: 10/10/20 10/10/2020, the patient is on long-acting insulin with Levemir 41 units at bedtime and this lasted coverage. Blood sugar was adequately controlled till this morning with came at 259. Nevertheless, his anion gap has already closed. No new complaints. No nausea or emesis. He is pulse oxing 96% on room air oxygen.was significant nausea. He was given Zofran for that. No chest pain. No cough or sputum production. No altered mentation. Objective - Vital Signs Vital signs: Vital Signs Temp 98.9 F 10/10/20 11:42 Pulse 96 10/10/20 11:42 Resp 16 10/10/20 11:42 BP 126/78 10/10/20 11:42 Pulse Ox 96 10/10/20 11:42 Intake & Output 10/09/20 10/10/20 10/10/20 18:59 06:59 18:59 Intake Total 601.467 550 Output Total 1100 800 700 Balance -498.533 -250 -700 Weight 54.5 kg 55.8 kg Intake: Intake, IV Titration 1.467 Amount Insulin Regular 100 unit 1.467 In Sodium Chloride 0.9% 100 ml @ 0.1 UNITS/KG/HR 6.185 mls/hr IV .[id number] [facility] Rx#:[id number] Oral 600 550 Output: Urine 1100 800 700 Other: # Voids 200 - Exam The patient appeared well nourished and normally developed. Vital signs as documented. Head exam is unremarkable. No scleral icterus or corneal arcus noted. Neck is without jugular venous distension, thyromegaly, or carotid bruits. Carotid upstrokes are brisk bilaterally. Lungs are clear to auscultation and percussion. Very poor dental status and multiple decayed and carried teeth. Cardiac exam reveals the PMI to be normally sized and situated. Rhythm is regular. First and second heart sounds normal. No murmurs, rubs or gallops. Abdominal exam reveals normal bowel sounds, no masses, no organomegaly and no aortic enlargement. Extremities are nonedematous and both femoral and pedal pulses are normal. There is a partial amputation of the left pinky finger .skin revealed no evidence of significant rashes, suspicious appearing nevi or other concerning lesions.Neurologically, the patient is awake and alert and the patient does not have any focal neurological deficit. Cranial nerves are essentially intact. - Labs CBC & Chem 7: 10/08/20 20:49 10/09/20 11:40 Labs: Abnormal Lab Results - Last 24 Hours (Table) 10/09/20 10/09/20 10/09/20 Range/Units 11:58 13:04 15:23 POC Glucose (mg/dL) 353 H 363 H (75-99) mg/dL U Marijuana (THC) Screen Detected H (NotDetected) 10/09/20 10/09/20 10/09/20 Range/Units 16:54 20:04 20:22 POC Glucose (mg/dL) 189 H 57 L 105 H (75-99) mg/dL U Marijuana (THC) Screen (NotDetected) 10/10/20 10/10/20 Range/Units 02:00 11:41 POC Glucose (mg/dL) 53 L 259 H (75-99) mg/dL U Marijuana (THC) Screen (NotDetected) Assessment and Plan Plan: 1 DKA, recovered 2 type 1 diabetes mellitus 3 peripheral neuropathy 4 abdominal pain along with nausea and emesis, recovered 5 elevated alkaline phosphatase with mild bilirubin elevation. 6 electrolytes disturbance secondary to DKA, improving Plan Offered this patient some nausea medication including Zofran Ultrasound the liver was negative Urine drug screen was positive marijuana Levemir insulin 41 units qday IV fluids kvo tolerating Diet Will sign off
--- NOTE | 2020-10-10 18:31 | DS ---
DISCHARGE SUMMARY CHIEF COMPLAINT: DKA. HISTORY OF PRESENT ILLNESS AND PHYSICAL EXAMINATION: Details of this man's history and physical can be found in the initial workup. LABORATORY STUDIES: While he was in the hospital, he had laboratory studies, details of which can be found in the laboratory section of his chart. COURSE IN THE HOSPITAL: After admission, he was placed on bedrest, started on intravenous fluids and DKA protocol. Blood sugars came down nicely and he was doing well. Stable. It was felt that he would go home on his usual activity and diet on October 10, and he will follow up in the office in several days. FINAL DIAGNOSES: 1. Diabetic ketoacidosis. 2. History of poorly controlled type 1 insulin-dependent diabetes mellitus. 3. Status post partial amputation of the left fifth finger for osteomyelitis. OPERATIONS: None. CONSULTATION: None. He is improved. MMODL / IJN: [id number] /
== END 2020-10-10 15:00 | disposition home or self-care (01) | DRG 639 ==
LOC: EC 20:10 → 2SICU 22:29 → 3SCARD 10-09 02:41
PROVIDERS: ADMIT Family Medicine; ATTEND Family Medicine
DX: E10.10 Type 1 diabetes mellitus with ketoacidosis without coma (principal); E10.42 Type 1 diabetes mellitus with diabetic polyneuropathy; E10.43 Type 1 diabetes mellitus with diabetic autonomic (poly)neuropathy; K31.84 Gastroparesis; E86.0 Dehydration; F31.9 Bipolar disorder, unspecified; Z79.4 Long term (current) use of insulin; Z20.822 Contact with and (suspected) exposure to COVID-19; J45.909 Unspecified asthma, uncomplicated; M19.90 Unspecified osteoarthritis, unspecified site; F17.210 Nicotine dependence, cigarettes, uncomplicated; Z71.6 Tobacco abuse counseling; Z86.14 Personal history of Methicillin resistant Staphylococcus aureus infection; Z89.022 Acquired absence of left finger(s); Z87.81 Personal history of (healed) traumatic fracture; Z86.69 Personal history of other diseases of the nervous system and sense organs; Z98.890 Other specified postprocedural states; Z91.040 Latex allergy status; Z82.49 Family history of ischemic heart disease and other diseases of the circulatory system; Z82.5 Family history of asthma and other chronic lower respiratory diseases; Z83.49 Family history of other endocrine, nutritional and metabolic diseases
CPT/HCPCS: 36415; 76705; 80051; 80053; 80306; 82009; 82565; 82803; 82947; 83690; 83735; 84100; 84520; 85025; 87635; 93005; 96361; 96374; 96375; 99291

== ENCOUNTER 2021-03-27 17:10 | Observation (INO) | payer OTHER ==
[2021-03-27] MEDS ORDERED: SODIUM CHLORIDE 0.9% 1,000 ML IV STA (17:46)
[2021-03-27] MEDS ORDERED: ONDANSETRON 4 MG/2 ML VIAL IVP STA (17:46)
--- NOTE | 2021-03-27 17:59 | ED ---
Nausea/Vomiting/Diarrhea HPI - General Chief complaint: Nausea/Vomiting/Diarrhea Stated complaint: Nausea,Vomiting Time Seen by Provider: 03/27/21 17:45 Source: patient, RN notes reviewed, old records reviewed Mode of arrival: ambulatory Limitations: no limitations - History of Present Illness Initial comments: This is an ill-appearing 30-year-old male patient presents to the emergency room with 2 days of vomiting. Patient states he vomited all day yesterday too numerous to count. He denies any hematochezia or hematemesis. He states that today he developed a headache and a cough. He has had some sick contacts but is unable to tell me what illnesses he was exposed to. He states that he has headache that is 6 out of 10 with some diffuse abdominal pain. He has a history of asthma, insulin-dependent diabetes, gastroparesis. He is a pack-a-day smoker but denies any alcohol or drug use. MD complaint: nausea, vomiting -: days(s) (2) Associated Abdominal Pain: Yes Location: diffuse Severity scale (1-10): 6 Associated Symptoms: cough, headaches, malaise, weakness - Related Data Home Medications Medication Instructions Recorded Confirmed No Known Home Medications 03/27/21 03/27/21 Allergies Allergy/AdvReac Type Severity Reaction Status Date / Time latex Allergy Rash/Hives Verified 03/27/21 20:05 Review of Systems ROS Statement: Those systems with pertinent positive or pertinent negative responses have been documented in the HPI. ROS Other: All systems not noted in ROS Statement are negative. Past Medical History Past Medical History: Asthma, Diabetes Mellitus, Osteoarthritis (OA) Additional Past Medical History / Comment(s): IDDM type I, diabetic gastroparesis, neuropathy bilateral hands/fingers, migraines, arthrtitis fingers/knees, past R hand and L femur fractures. History of Any Multi-Drug Resistant Organisms: MRSA Date of last positivie culture/infection: 04/26/2014 MDRO Source:: Face Past Surgical History: Ear Surgery, Orthopedic Surgery Additional Past Surgical History / Comment(s): R hand surgery d/t fracture- pinned and pins since removed, L leg femur fracture with pin that eventually was removed, bilateral myringotomy with tubes/ear drum repairs. Past Anesthesia/Blood Transfusion Reactions: No Reported Reaction Past Psychological History: Anxiety, Bipolar, Depression Smoking Status: Current every day smoker Past Alcohol Use History: None Reported Past Drug Use History: Marijuana - Past Family History Father Family Medical History: Hyperlipidemia, Hypertension Mother Family Medical History: COPD Additional Family Medical History / Comment(s): home O2, Brother(s) Family Medical History: No Reported History General Exam Limitations: no limitations General appearance: alert Head exam: Present: atraumatic, normocephalic, normal inspection Eye exam: Present: normal appearance, PERRL, EOMI. Absent: scleral icterus, conjunctival injection, periorbital swelling ENT exam: Present: mucous membranes dry (Dry cracked lips and tongue. Black Nicotine stains to tongue) Neck exam: Present: normal inspection, full ROM. Absent: tenderness, meningismus, lymphadenopathy Respiratory exam: Present: normal lung sounds bilaterally. Absent: respiratory distress, wheezes, rales, rhonchi, stridor Cardiovascular Exam: Present: tachycardia GI/Abdominal exam: Present: soft, normal bowel sounds. Absent: distended, tenderness, guarding, rebound, rigid Extremities exam: Present: normal inspection, full ROM, normal capillary refill. Absent: tenderness, pedal edema, joint swelling, calf tenderness Back exam: Present: normal inspection, full ROM. Absent: tenderness, CVA ten derness (R), CVA tenderness (L), rash noted Neurological exam: Present: alert, oriented X3 Psychiatric exam: Present: normal affect, normal mood Skin exam: Present: warm, dry, intact, normal color. Absent: rash, cyanosis, di aphoretic, erythema, petechiae, mottled Course Vital Signs 03/27/21 03/27/21 03/27/21 17:20 17:21 17:24 Temperature 97.8 F Pulse Rate 121 H Pulse Rate [ 120 H Wallpaperer ] Respiratory 20 Rate Blood Pressure 111/66 111/66 O2 Sat by Pulse 95 Oximetry 03/27/21 03/27/21 03/27/21 18:00 19:00 20:00 Temperature Pulse Rate 116 H 111 H 115 H Pulse Rate [ Wallpaperer ] Respiratory 19 20 22 Rate Blood Pressure 111/66 114/66 104/66 O2 Sat by Pulse 99 100 98 Oximetry 03/27/21 21:00 Temperature Pulse Rate 126 H Pulse Rate [ Wallpaperer ] Respiratory 22 Rate Blood Pressure 101/66 O2 Sat by Pulse 100 Oximetry Medical Decision Making - Medical Decision Making Patient is afebrile. Lung sounds are clear to auscultation. blood glucose is 1293, pH is 7.06, bicarb of 8. His lactic acid is 6.3 has given 2 L of normal saline and was started at 200 mL an hour. Serum acetone is positive. His creatinine is 2.01, potassium is 6.8. He will be admitted to the hospital ICU for DKA. He was put on DKA protocol and given 6 units of regular insulin IV and started him on an insulin drip. Bicarb drip was held per Dr. Blair. This case was discussed with Dr. Oakley. - Lab Data Result diagrams: 03/27/21 17:52 03/27/21 22:17 Lab Results 03/27/21 03/27/21 03/27/21 Range/Units 17:52 17:52 17:52 WBC 23.7 H (3.8-10.6) k/uL RBC 5.06 (4.30-5.90) m/uL Hgb 16.1 (13.0-17.5) gm/dL Hct 56.2 H (39.0-53.0) % MCV 111.1 H (80.0-100.0) fL MCH 31.9 (25.0-35.0) pg MCHC 28.7 L (31.0-37.0) g/dL RDW 14.0 (11.5-15.5) % Plt Count 542 H (150-450) k/uL MPV 9.7 Neutrophils % 90 % Lymphocytes % 5 % Monocytes % 4 % Eosinophils % 0 % Basophils % 0 % Neutrophils # 21.2 H (1.3-7.7) k/uL Lymphocytes # 1.1 (1.0-4.8) k/uL Monocytes # 1.0 (0-1.0) k/uL Eosinophils # 0.1 (0-0.7) k/uL Basophils # 0.1 (0-0.2) k/uL Hypochromasia Marked Macrocytosis Marked A VBG pH (7.31-7.41) VBG pCO2 (37-51) mmHg VBG HCO3 (24-28) mmol/L Sodium 133 L (137-145) mmol/L Potassium 6.8 H* (3.5-5.1) mmol/L Chloride 85 L (98-107) mmol/L Carbon Dioxide 6 L* (22-30) mmol/L Anion Gap 42 mmol/L BUN 71 H (9-20) mg/dL Creatinine 2.01 H (0.66-1.25) mg/dL Est GFR (CKD-EPI)AfAm 50 (>60 ml/min/1.73 sqM) Est GFR (CKD-EPI)NonAf 43 (>60 ml/min/1.73 sqM) Glucose 1293 H* (74-99) mg/dL POC Glucose (mg/dL) (75-99) mg/dL POC Glu Manager Play ID Lactic Ac Sepsis Rflx Plasma Lactic Acid Neymar (0.7-2.0) mmol/L Calcium 9.8 (8.4-10.2) mg/dL Total Bilirubin 0.7 (0.2-1.3) mg/dL AST 31 (17-59) U/L ALT 45 (4-49) U/L Alkaline Phosphatase 268 H (38-126) U/L Total Protein 7.6 (6.3-8.2) g/dL Albumin 4.8 (3.5-5.0) g/dL Amylase 59 (30-110) U/L Lipase 25 (23-300) U/L Urine Color Colorless Urine Appearance Clear (Clear) Urine pH 5.0 (5.0-8.0) Ur Specific Warner 1.025 (1.001-1.035) Urine Protein Negative (Negative) Urine Glucose (UA) 4+ H (Negative) Urine Ketones 3+ H (Negative) Urine Blood Negative (Negative) Urine Nitrite Negative (Negative) Urine Bilirubin Negative (Negative) Urine Urobilinogen <2.0 (<2.0) mg/dL Ur Leukocyte Esterase Negative (Negative) Coronavirus (PCR) (Not Detectd) Blood Type Blood Type Confirm Blood Type Recheck Bld Type Recheck Status Antibody Screen Spec Expiration Date 03/27/21 03/27/21 03/27/21 Range/Units 17:52 18:25 18:36 WBC (3.8-10.6) k/uL RBC (4.30-5.90) m/uL Hgb (13.0-17.5) gm/dL Hct (39.0-53.0) % MCV (80.0-100.0) fL MCH (25.0-35.0) pg MCHC (31.0-37.0) g/dL RDW (11.5-15.5) % Plt Count (150-450) k/uL MPV Neutrophils % % Lymphocytes % % Monocytes % % Eosinophils % % Basophils % % Neutrophils # (1.3-7.7) k/uL Lymphocytes # (1.0-4.8) k/uL Monocytes # (0-1.0) k/uL Eosinophils # (0-0.7) k/uL Basophils # (0-0.2) k/uL Hypochromasia Macrocytosis VBG pH 7.06 L* (7.31-7.41) VBG pCO2 29 L (37-51) mmHg VBG HCO3 8 L* (24-28) mmol/L Sodium (137-145) mmol/L Potassium (3.5-5.1) mmol/L Chloride (98-107) mmol/L Carbon Dioxide (22-30) mmol/L Anion Gap mmol/L BUN (9-20) mg/dL Creatinine (0.66-1.25) mg/dL Est GFR (CKD-EPI)AfAm (>60 ml/min/1.73 sqM) Est GFR (CKD-EPI)NonAf (>60 ml/min/1.73 sqM) Glucose (74-99) mg/dL POC Glucose (mg/dL) (75-99) mg/dL POC Glu Manager Play ID Lactic Ac Sepsis Rflx Plasma Lactic Acid Neymar 6.3 H* (0.7-2.0) mmol/L Calcium (8.4-10.2) mg/dL Total Bilirubin (0.2-1.3) mg/dL AST (17-59) U/L ALT (4-49) U/L Alkaline Phosphatase (38-126) U/L Total Protein (6.3-8.2) g/dL Albumin (3.5-5.0) g/dL Amylase (30-110) U/L Lipase (23-300) U/L Urine Color Urine Appearance (Clear) Urine pH (5.0-8.0) Ur Specific Warner (1.001-1.035) Urine Protein (Negative) Urine Glucose (UA) (Negative) Urine Ketones (Negative) Urine Blood (Negative) Urine Nitrite (Negative) Urine Bilirubin (Negative) Urine Urobilinogen (<2.0) mg/dL Ur Leukocyte Esterase (Negative) Coronavirus (PCR) (Not Detectd) Blood Type Blood Type Confirm A Negative Blood Type Recheck Bld Type Recheck Status Antibody Screen Spec Expiration Date 03/27/21 03/27/21 03/27/21 Range/Units 18:37 18:39 18:41 WBC (3.8-10.6) k/uL RBC (4.30-5.90) m/uL Hgb (13.0-17.5) gm/dL Hct (39.0-53.0) % MCV (80.0-100.0) fL MCH (25.0-35.0) pg MCHC (31.0-37.0) g/dL RDW (11.5-15.5) % Plt Count (150-450) k/uL MPV Neutrophils % % Lymphocytes % % Monocytes % % Eosinophils % % Basophils % % Neutrophils # (1.3-7.7) k/uL Lymphocytes # (1.0-4.8) k/uL Monocytes # (0-1.0) k/uL Eosinophils # (0-0.7) k/uL Basophils # (0-0.2) k/uL Hypochromasia Macrocytosis VBG pH (7.31-7.41) VBG pCO2 (37-51) mmHg VBG HCO3 (24-28) mmol/L Sodium (137-145) mmol/L Potassium (3.5-5.1) mmol/L Chloride (98-107) mmol/L Carbon Dioxide (22-30) mmol/L Anion Gap mmol/L BUN (9-20) mg/dL Creatinine (0.66-1.25) mg/dL Est GFR (CKD-EPI)AfAm (>60 ml/min/1.73 sqM) Est GFR (CKD-EPI)NonAf (>60 ml/min/1.73 sqM) Glucose (74-99) mg/dL POC Glucose (mg/dL) (75-99) mg/dL POC Glu Manager Play ID Lactic Ac Sepsis Rflx Y Plasma Lactic Acid Neymar (0.7-2.0) mmol/L Calcium (8.4-10.2) mg/dL Total Bilirubin (0.2-1.3) mg/dL AST (17-59) U/L ALT (4-49) U/L Alkaline Phosphatase (38-126) U/L Total Protein (6.3-8.2) g/dL Albumin (3.5-5.0) g/dL Amylase (30-110) U/L Lipase (23-300) U/L Urine Color Urine Appearance (Clear) Urine pH (5.0-8.0) Ur Specific Warner (1.001-1.035) Urine Protein (Negative) Urine Glucose (UA) (Negative) Urine Ketones (Negative) Urine Blood (Negative) Urine Nitrite (Negative) Urine Bilirubin (Negative) Urine Urobilinogen (<2.0) mg/dL Ur Leukocyte Esterase (Negative) Coronavirus (PCR) Not Detected (Not Detectd) Blood Type A Negative Blood Type Confirm Blood Type Recheck No Previous Record Bld Type Recheck Status CABO Indicated Antibody Screen NEGATIVE Spec Expiration Date 03/30/2021 - 233803/27/21 Range/Units 21:13 WBC (3.8-10.6) k/uL RBC (4.30-5.90) m/uL Hgb (13.0-17.5) gm/dL Hct (39.0-53.0) % MCV (80.0-100.0) fL MCH (25.0-35.0) pg MCHC (31.0-37.0) g/dL RDW (11.5-15.5) % Plt Count (150-450) k/uL MPV Neutrophils % % Lymphocytes % % Monocytes % % Eosinophils % % Basophils % % Neutrophils # (1.3-7.7) k/uL Lymphocytes # (1.0-4.8) k/uL Monocytes # (0-1.0) k/uL Eosinophils # (0-0.7) k/uL Basophils # (0-0.2) k/uL Hypochromasia Macrocytosis VBG pH (7.31-7.41) VBG pCO2 (37-51) mmHg VBG HCO3 (24-28) mmol/L Sodium (137-145) mmol/L Potassium (3.5-5.1) mmol/L Chloride (98-107) mmol/L Carbon Dioxide (22-30) mmol/L Anion Gap mmol/L BUN (9-20) mg/dL Creatinine (0.66-1.25) mg/dL Est GFR (CKD-EPI)AfAm (>60 ml/min/1.73 sqM) Est GFR (CKD-EPI)NonAf (>60 ml/min/1.73 sqM) Glucose (74-99) mg/dL POC Glucose (mg/dL) >600 H (75-99) mg/dL POC Glu Manager Play ID Sandy Buck Lactic Ac Sepsis Rflx Plasma Lactic Acid Neymar (0.7-2.0) mmol/L Calcium (8.4-10.2) mg/dL Total Bilirubin (0.2-1.3) mg/dL AST (17-59) U/L ALT (4-49) U/L Alkaline Phosphatase (38-126) U/L Total Protein (6.3-8.2) g/dL Albumin (3.5-5.0) g/dL Amylase (30-110) U/L Lipase (23-300) U/L Urine Color Urine Appearance (Clear) Urine pH (5.0-8.0) Ur Specific Warner (1.001-1.035) Urine Protein (Negative) Urine Glucose (UA) (Negative) Urine Ketones (Negative) Urine Blood (Negative) Urine Nitrite (Negative) Urine Bilirubin (Negative) Urine Urobilinogen (<2.0) mg/dL Ur Leukocyte Esterase (Negative) Coronavirus (PCR) (Not Detectd) Blood Type Blood Type Confirm Blood Type Recheck Bld Type Recheck Status Antibody Screen Spec Expiration Date Disposition Clinical Impression: DKA (diabetic ketoacidosis) Disposition: ADMITTED IP TO THIS HOSP Condition: Fair Decision Date: 03/27/21 Decision Time: 19:23
[2021-03-27 18:16] LABS: Appearance,Urine Clear (Clear); Bilirubin,Urine Negative (Negative); Blood,Urine Negative (Negative); Color,Urine Colorless; Glucose,Urine (UA) 4+ (Negative); Leukocyte Esterase,Urine Negative (Negative); Nitrite,Urine Negative (Negative); Protein,Urine Negative (Negative); Specific Gravity,Urine 1.025 (1.001-1.035); Urobilinogen,Urine <2.0 mg/dL (<2.0)
[2021-03-27 18:17] LABS: Albumin 4.8 g/dL (3.5-5.0); Calcium 9.8 mg/dL (8.4-10.2); Total Bilirubin 0.7 mg/dL (0.2-1.3); Total Protein 7.6 g/dL (6.3-8.2)
[2021-03-27 18:21] LABS: Basophils # (A) 0.1 k/uL (0-0.2); Basophils % (A) 0 %; Eosinophils # (A) 0.1 k/uL (0-0.7); Eosinophils % (A) 0 %; HGB 16.1 gm/dL (13.0-17.5); Hypochromasia Marked; Lymphocytes # (A) 1.1 k/uL (1.0-4.8); Lymphocytes % (A) 5 %; MCH 31.9 pg (25.0-35.0); MCHC 28.7 g/dL (31.0-37.0); MCV 111.1 fL (80.0-100.0); Macrocytosis Marked; Mean Platelet Volume 9.7; Monocytes % (A) 4 %; Neutrophils # (A) 21.2 k/uL (1.3-7.7); Neutrophils % (A) 90 %; Platelet Count 542 k/uL (150-450); RBC 5.06 m/uL (4.30-5.90); WBC 23.7 k/uL (3.8-10.6)
[2021-03-27 18:24] LABS: Ketones,Urine 3+ (Negative)
[2021-03-27 18:25] LABS: HCT 56.2 % (39.0-53.0)
[2021-03-27 18:42] LABS: Potassium 6.8 mmol/L (3.5-5.1)
[2021-03-27] MEDS ORDERED: SODIUM CHLORIDE 0.9% 2,000 ML IV ONE (18:49)
[2021-03-27 18:53] LABS: VBG PH 7.06 (7.31-7.41)
[2021-03-27] MEDS ORDERED: INSULIN REGULAR 100 UNIT/ML VIAL (IV) IV ONE (19:19)
[2021-03-27] MEDS: SODIUM CHLORIDE 0.9% 1,000 ML IV SCH (19:51)
[2021-03-27] MEDS: INSULIN REGULAR 100 UNIT in SODIUM CHLORIDE 0.9% 100 ML IV SCH (19:52)
[2021-03-27 21:17] LABS: Glucose,Whole Blood >600 mg/dL (75-99)
[2021-03-27 22:24] LABS: Glucose,Whole Blood >600 mg/dL (75-99)
[2021-03-27 22:38] LABS: Glucose,Whole Blood >600 mg/dL (75-99)
[2021-03-27 22:59] LABS: Potassium 6.5 mmol/L (3.5-5.1)
[2021-03-27 23:54] LABS: Glucose,Whole Blood >600 mg/dL (75-99)
[2021-03-28] MEDS: SODIUM CHLORIDE 0.9% 1,000 ML IV SCH (00:17)
--- NOTE | 2021-03-28 00:39 | XR ---
EXAMINATION TYPE: XR chest 1V DATE OF EXAM: 03/28/2021 COMPARISON: 12/14/2019 HISTORY: Cough TECHNIQUE: 2 frontal views. FINDINGS: Heart and mediastinum are normal. Lungs are clear. Diaphragm is normal. Bony thorax is inta ct there are chest leads. IMPRESSION: Normal chest. No change.
[2021-03-28 01:08] LABS: Potassium 5.5 mmol/L (3.5-5.1)
[2021-03-28 01:54] LABS: Glucose,Whole Blood 293 mg/dL (75-99)
[2021-03-28] MEDS: D5-0.45% NACL WITH KCL 20MEQ/L 1,000 ML IV SCH ×3 (02:10→17:15)
[2021-03-28 02:53] LABS: Glucose,Whole Blood 237 mg/dL (75-99)
[2021-03-28 04:05] LABS: Glucose,Whole Blood 200 mg/dL (75-99)
[2021-03-28 04:40] LABS: Basophils % (A) 0 %; Eosinophils # (A) 0.1 k/uL (0-0.7); Eosinophils % (A) 0 %; HCT 45.8 % (39.0-53.0); HGB 14.8 gm/dL (13.0-17.5); Lymphocytes # (A) 2.2 k/uL (1.0-4.8); Lymphocytes % (A) 9 %; MCH 31.3 pg (25.0-35.0); MCHC 32.3 g/dL (31.0-37.0); Mean Platelet Volume 7.8; Monocytes # (A) 1.1 k/uL (0-1.0); Monocytes % (A) 4 %; Neutrophils # (A) 21.7 k/uL (1.3-7.7); Neutrophils % (A) 85 %; Platelet Count 461 k/uL (150-450); RBC 4.73 m/uL (4.30-5.90); RDW 13.6 % (11.5-15.5); WBC 25.5 k/uL (3.8-10.6)
[2021-03-28 04:47] LABS: MCV 96.9 fL (80.0-100.0)
[2021-03-28 04:56] LABS: African American GFR (CKD) >90 (>60 ml/min/1.73 sqM); Anion Gap 14 mmol/L; Blood Urea Nitrogen 64 mg/dL (9-20); Carbon Dioxide 20 mmol/L (22-30); Chloride 112 mmol/L (98-107); Non-African American GFR(CKD) 90 (>60 ml/min/1.73 sqM); Potassium 5.1 mmol/L (3.5-5.1); Sodium 146 mmol/L (137-145)
[2021-03-28 05:06] LABS: Glucose,Whole Blood 261 mg/dL (75-99)
[2021-03-28 06:03] LABS: Glucose,Whole Blood 145 mg/dL (75-99)
[2021-03-28 06:55] LABS: Glucose,Whole Blood 146 mg/dL (75-99)
[2021-03-28] MEDS: INSULIN REGULAR 100 UNIT in SODIUM CHLORIDE 0.9% 100 ML IV SCH (06:55)
[2021-03-28 08:16] LABS: Glucose,Whole Blood 137 mg/dL (75-99)
--- NOTE | 2021-03-28 09:00 | P.CNPUL ---
History of Present Illness Consult date: 03/28/21 Chief complaint: DKA History of present illness: Is a 30-year-old male patient, known diabetic, poor compliance with previous bouts of DKA. Patient presented to [facility] for another bout of DKA. He presented with severe anion gap metabolic acidosis. His initial blood sugar was above 600. He had an anion gap of 42 with a serum bicarb of 6. The blood gases showed a pH of 7.06. White cell count was 23.7. UA showed +4 glucose and he had positive acetone. For that reason, the patient was admitted to the intensive care unit. The patient received a total of 2 L of fluid in the emergency department. He was started on insulin drip. This morning, he is on D5 half-normal saline with 20 mg of potassium running at 150 mL an hour. He remains on insulin drip running at 1 units an hour. He is improving in terms of his electrolytes. His sodium level is at 146, potassium level has dropped from as high as 6.8 down to 5.1, serum bicarb is up to 20, gap is down to 14, BUN is at 64 with a creatinine of 1.1. Note that the patient also had an acute kidney injury with a creatinine of 1.7 and this is improved. Lactic acid level dropped from 6.3 down to 1.5. He is afebrile. His chest x-ray is not showing any acute abnormalities. He is on room air oxygen. No nausea. No emesis. No chest pain. No shortness of breath. No headaches did not neck stiffness. No other significant events overnight. All, the patient received a total of 4 L of IV fluids. He has been maintained Lantus insulin 36 units a day along with 12 units of NovoLog 3 times a day with meals. He is noncompliant with his blood sugar intake. He tells the that he has a lot of stress. He is a father of 8 kids. He smokes cigarettes. No alcoholism. No substance abuse. Review of Systems Constitutional: Reports fatigue, Reports weakness Eyes: denies as per HPI, denies blurred vision, denies bulging eye, denies decreased vision, denies diplopia, denies discharge, denies dry eye, denies irritation, denies itching, denies pain, denies photophobia, denies loss of pe ripheral vision, denies loss of vision, denies tunnel vision/blind spots Ears: deny: decreased hearing, ear discharge, earache, tinnitus Ears, nose, mouth and throat: Reports as per HPI Breasts: absent: as per HPI, gynecomastia Cardiovascular: Reports as per HPI Respiratory: Reports as per HPI Gastrointestinal: Reports abdominal pain, Reports nausea, Reports vomiting Genitourinary: Reports as per HPI Musculoskeletal: Reports as per HPI Musculoskeletal: absent: ankle pain, ankle stiffness, ankle swelling, as per HPI, elbow pain, elbow stiffness, elbow swelling, foot pain, foot stiffness, foot swelling, hand pain, hand stiffness, hand swelling, hip pain, hip stiffness, hip swelling, knee pain, knee stiffness, knee swelling, shoulder pain, shoulder stiffness, shoulder swelling, wrist pain, wrist stiffness, wrist swelling Integumentary: Reports as per HPI Neurological: Reports as per HPI Psychiatric: Reports as per HPI Endocrine: Reports high blood sugars Hematologic/Lymphatic: Reports as per HPI Allergic/Immunologic: Reports as per HPI ROS unobtainable: due to mental status Past Medical History Past Medical History: Asthma, Diabetes Mellitus, Osteoarthritis (OA) Additional Past Medical History / Comment(s): IDDM type I, diabetic gastroparesis, neuropathy bilateral hands/fingers, migraines, arthrtitis fingers/knees, past R hand and L femur fractures. History of Any Multi-Drug Resistant Organisms: MRSA Date of last positivie culture/infection: 04/26/2014 MDRO Source:: Face Past Surgical History: Ear Surgery, Orthopedic Surgery Additional Past Surgical History / Comment(s): R hand surgery d/t fracture- pinned and pins since removed, L leg femur fracture with pin that eventually was removed, bilateral myringotomy with tubes/ear drum repairs. Past Anesthesia/Blood Transfusion Reactions: No Reported Reaction Past Psychological History: Anxiety, Bipolar, Depression Smoking Status: Current every day smoker Past Alcohol Use History: None Reported Past Drug Use History: Marijuana - Past Family History Father Family Medical History: Hyperlipidemia, Hypertension Mother Family Medical History: COPD Additional Family Medical History / Comment(s): home O2, Brother(s) Family Medical History: No Reported History Medications and Allergies Home Medications Medication Instructions Recorded Confirmed Type No Known Home Medications 03/27/21 03/27/21 History Allergies Allergy/AdvReac Type Severity Reaction Status Date / Time latex Allergy Rash/Hives Verified 03/27/21 20:05 Physical Exam Vitals: Vital Signs Temp Pulse Pulse Resp BP Pulse Ox 03/28/21 07:00 114 H 16 154/94 96 03/28/21 06:00 121 H 23 94 L 03/28/21 05:00 135 H 21 139/98 98 03/28/21 04:00 98.4 F 131 H 18 139/98 95 03/28/21 03:00 131 H 12 96 03/28/21 02:00 146 H 22 144/101 96 03/28/21 01:00 142 H 17 147/96 98 03/28/21 00:21 141 H 10 L 147/96 99 03/28/21 00:00 98.0 F 131 H 23 147/95 98 03/27/21 23:10 98.1 F 134 H 18 98 03/27/21 22:23 97.8 F 105 H 20 108/78 98 03/27/21 21:00 126 H 22 101/66 100 03/27/21 20:00 115 H 22 104/66 98 03/27/21 19:00 111 H 20 114/66 100 03/27/21 18:00 116 H 19 111/66 99 03/27/21 17:24 111/66 03/27/21 17:21 97.8 F 121 H 20 111/66 95 03/27/21 17:20 120 H Intake and Output 03/27/21 03/28/21 03/28/21 22:59 06:59 14:59 Intake Total 1475.716 322.733 Output Total 1300 0 Balance 175.716 322.733 Intake: IV 1400 320 D5-0.45% NaCl with KCl 750 300 20Meq/l 1,000 ml @ 150 mls/hr IV .[id number] ARUNA Rx# :[id number] Sodium Chloride 0.9% 1, 650 20 000 ml @ 200 mls/hr IV . Q5H ARUNA Rx#:[id number] Intake, IV Titration 75.716 2.733 Amount Insulin Regular 100 unit 75.716 2.733 In Sodium Chloride 0.9% 100 ml @ 0.1 UNITS/KG/HR 7.009 mls/hr IV .[id number] ARUNA Rx#:[id number] Output: Urine 1300 0 Other: Voiding Method Urinal # Voids 1 Weight 54.6 kg 54.8 kg The patient appeared well nourished and normally developed. Vital signs as documented. Head exam is unremarkable. No scleral icterus or corneal arcus noted. Neck is without jugular venous distension, thyromegaly, or carotid bruits. Carotid upstrokes are brisk bilaterally. Lungs are clear to auscultation and percussion. Very poor dental status and multiple decayed and carried teeth. Cardiac exam reveals the PMI to be normally sized and situated. Rhythm is regular. First and second heart sounds normal. No murmurs, rubs or gallops. Abdominal exam reveals normal bowel sounds, no masses, no organomegaly and no aortic enlargement. Extremities are nonedematous and both femoral and pedal pulses are normal. There is a partial amputation of the left pinky finger .skin revealed no evidence of significant rashes, suspicious appearing nevi or other concerning lesions.Neurologically, the patient is awake and alert and the patient does not have any focal neurological deficit. Cranial nerves are esse ntially intact. Results - Laboratory Findings CBC and BMP: 03/28/21 04:19 03/28/21 04:19 Abnormal lab findings: Abnormal Labs 03/27/21 03/27/21 03/27/21 17:52 17:52 17:52 WBC 23.7 H Hct 56.2 H MCV 111.1 H MCHC 28.7 L Plt Count 542 H Neutrophils # 21.2 H Monocytes # Macrocytosis Marked A VBG pH VBG pCO2 VBG HCO3 Sodium 133 L Potassium 6.8 H* Chloride 85 L Carbon Dioxide 6 L* BUN 71 H Creatinine 2.01 H Glucose 1293 H* POC Glucose (mg/dL) Plasma Lactic Acid Neymar Phosphorus Alkaline Phosphatase 268 H Urine Glucose (UA) 4+ H Urine Ketones 3+ H 03/27/21 03/27/21 03/27/21 17:52 18:36 21:13 WBC Hct MCV MCHC Plt Count Neutrophils # Monocytes # Macrocytosis VBG pH 7.06 L* VBG pCO2 29 L VBG HCO3 8 L* Sodium Potassium Chloride Carbon Dioxide BUN Creatinine Glucose POC Glucose (mg/dL) >600 H Plasma Lactic Acid Neymar 6.3 H* Phosphorus Alkaline Phosphatase Urine Glucose (UA) Urine Ketones 03/27/21 03/27/21 03/27/21 22:13 22:17 22:36 WBC Hct MCV MCHC Plt Count Neutrophils # Monocytes # Macrocytosis VBG pH VBG pCO2 VBG HCO3 Sodium Potassium 6.5 H* Chloride Carbon Dioxide 8 L* BUN 75 H Creatinine 1.75 H Glucose 927 H* POC Glucose (mg/dL) >600 H >600 H Plasma Lactic Acid Neymar Phosphorus Alkaline Phosphatase Urine Glucose (UA) Urine Ketones 03/27/21 03/28/21 03/28/21 23:53 00:29 00:29 WBC Hct MCV MCHC Plt Count Neutrophils # Monocytes # Macrocytosis VBG pH VBG pCO2 VBG HCO3 Sodium Potassium Chloride Carbon Dioxide BUN Creatinine Glucose POC Glucose (mg/dL) >600 H Plasma Lactic Acid Neymar 3.9 H* Phosphorus 5.4 H Alkaline Phosphatase Urine Glucose (UA) Urine Ketones 03/28/21 03/28/21 03/28/21 00:29 01:52 02:51 WBC Hct MCV MCHC Plt Count Neutrophils # Monocytes # Macrocytosis VBG pH VBG pCO2 VBG HCO3 Sodium Potassium 5.5 H Chloride 108 H Carbon Dioxide 10 L BUN 72 H Creatinine 1.56 H Glucose 561 H* POC Glucose (mg/dL) 293 H 237 H Plasma Lactic Acid Neymar Phosphorus Alkaline Phosphatase Urine Glucose (UA) Urine Ketones 03/28/21 03/28/21 03/28/21 04:03 04:19 04:19 WBC 25.5 H Hct MCV MCHC Plt Count 461 H Neutrophils # 21.7 H Monocytes # 1.1 H Macrocytosis VBG pH VBG pCO2 VBG HCO3 Sodium 146 H Potassium Chloride 112 H Carbon Dioxide 20 L BUN 64 H Creatinine Glucose POC Glucose (mg/dL) 200 H Plasma Lactic Acid Neymar Phosphorus Alkaline Phosphatase Urine Glucose (UA) Urine Ketones 03/28/21 03/28/21 03/28/21 05:05 06:01 06:54 WBC Hct MCV MCHC Plt Count Neutrophils # Monocytes # Macrocytosis VBG pH VBG pCO2 VBG HCO3 Sodium Potassium Chloride Carbon Dioxide BUN Creatinine Glucose POC Glucose (mg/dL) 261 H 145 H 146 H Plasma Lactic Acid Neymar Phosphorus Alkaline Phosphatase Urine Glucose (UA) Urine Ketones 03/28/21 08:15 WBC Hct MCV MCHC Plt Count Neutrophils # Monocytes # Macrocytosis VBG pH VBG pCO2 VBG HCO3 Sodium Potassium Chloride Carbon Dioxide BUN Creatinine Glucose POC Glucose (mg/dL) 137 H Plasma Lactic Acid Neymar Phosphorus Alkaline Phosphatase Urine Glucose (UA) Urine Ketones Assessment and Plan Plan: 1 DKA in a 30-year-old male patient with known history of type 1 diabetes mellitus. Patient presented with anion gap metabolic acidosis and his anion gap closed and his serum bicarbonate is improving 2 type 1 diabetes mellitus 3 peripheral neuropathy 4 previous history of DKA last presentation was in October 2020 5 acute kidney injury, improved 6 acute leukocytosis Plan Offered the patient a carb consistent diet Start the patient on Levemir insulin 36 units daily Start the patient on NovoLog 8 units with meals and his last care coverage Monitor the blood sugar IV fluids to KVO once the patient is back to normal diet May transfer to floor with the next 6-12 hours.
[2021-03-28 09:11] LABS: Glucose,Whole Blood 138 mg/dL (75-99)
[2021-03-28 09:14] LABS: African American GFR (CKD) >90 (>60 ml/min/1.73 sqM); Anion Gap 9 mmol/L; Blood Urea Nitrogen 57 mg/dL (9-20); Carbon Dioxide 24 mmol/L (22-30); Chloride 112 mmol/L (98-107); Non-African American GFR(CKD) >90 (>60 ml/min/1.73 sqM); Sodium 145 mmol/L (137-145)
[2021-03-28] MEDS: INSULIN DETEMIR (LEVEMIR) 100 UNIT/ML SYR SQ SCH (10:07)
[2021-03-28 11:43] LABS: Glucose,Whole Blood 174 mg/dL (75-99)
[2021-03-28 11:52] VITALS: BMI 17.3
[2021-03-28] MEDS: INSULIN ASPART (NovoLOG) 100 UNIT/ML VIAL SQ SCH ×5 (12:39→20:34)
[2021-03-28 18:29] LABS: Glucose,Whole Blood 115 mg/dL (75-99)
[2021-03-28 20:05] LABS: Glucose,Whole Blood 81 mg/dL (75-99)
[2021-03-29 01:39] LABS: Glucose,Whole Blood 75 mg/dL (75-99)
[2021-03-29 07:01] LABS: Glucose,Whole Blood 254 mg/dL (75-99)
[2021-03-29] MEDS: INSULIN ASPART (NovoLOG) 100 UNIT/ML VIAL SQ SCH ×4 (07:05→12:49)
[2021-03-29] MEDS: INSULIN DETEMIR (LEVEMIR) 100 UNIT/ML SYR SQ SCH (07:05)
--- NOTE | 2021-03-29 09:26 | P.PN ---
Subjective Progress Note Date: 03/29/21 03/29/2021, the patient is doing well. His communicating. He is tolerating diet. DKA has resolved and the patient has been switched to long-acting insulin. No hypoglycemic events. Awake. Alert. He is on room air oxygen. No other significant events overnight. The plan is to discharge this patient home today from the intensive care unit. His blood work from yesterday was noted. He is currently on Levemir insulin 36 units daily along with 8 units with meals and a sliding scale coverage. Objective - Vital Signs Vital signs: Vital Signs Temp 99.0 F 03/29/21 02:00 Pulse 80 03/29/21 02:00 Resp 21 03/29/21 02:00 BP 141/95 03/29/21 02:00 Pulse Ox 96 03/29/21 02:00 Intake & Output 03/28/21 03/29/21 03/29/21 18:59 06:59 18:59 Intake Total 682.950 Output Total 450 1700 600 Balance 232.950 -1700 -600 Weight 54.8 kg 60.4 kg Intake: IV 670 D5-0.45% NaCl with KCl 650 20Meq/l 1,000 ml @ 50 mls /hr IV .Q20H ARUNA Rx#: [id number] Sodium Chloride 0.9% 1, 20 000 ml @ 200 mls/hr IV . Q5H ARUNA Rx#:[id number] Intake, IV Titration 12.950 Amount Insulin Regular 100 unit 12.950 In Sodium Chloride 0.9% 100 ml @ 0.1 UNITS/KG/HR 7.009 mls/hr IV .[id number] ARUNA Rx#:[id number] Output: Urine 450 1700 600 Other: Voiding Method Urinal Urinal # Voids 0 1 1 - Exam The patient appeared well nourished and normally developed. Vital signs as documented. Head exam is unremarkable. No scleral icterus or corneal arcus noted. Neck is without jugular venous distension, thyromegaly, or carotid bruits. Carotid upstrokes are brisk bilaterally. Lungs are clear to auscultation and percussion. Cardiac exam reveals the PMI to be normally sized and situated. Rhythm is regular. First and second heart sounds normal. No murmurs, rubs or gallops. Abdominal exam reveals normal bowel sounds, no masses, no organomegaly and no aortic enlargement. Extremities are nonedematous and both femoral and pedal pulses are normal. - Labs CBC & Chem 7: 03/28/21 04:19 03/28/21 07:51 Labs: Abnormal Lab Results - Last 24 Hours (Table) 03/28/21 03/28/21 03/29/21 Range/Units 11:41 18:27 07:00 POC Glucose (mg/dL) 174 H 115 H 254 H (75-99) mg/dL Assessment and Plan Plan: 1 DKA in a 30-year-old male patient with known history of type 1 diabetes mellitus. Patient presented with anion gap metabolic acidosis and his anion gap closed and the patient has normalized. The patient is tolerating his diet. He has been switched to long-acting insulin 2 type 1 diabetes mellitus 3 peripheral neuropathy 4 previous history of DKA last presentation was in October 2020 5 acute kidney injury, improved 6 acute leukocytosis Plan Offered the patient a carb consistent diet Start the patient on Levemir insulin 36 units daily Start the patient on NovoLog 8 units with meals and his last care coverage Monitor the blood sugar IV to KVO Discharge home today to be followed up on outpatient basis with his primary care physician. Diabetic education was done.
[2021-03-29 09:37] VITALS: RESP 14
[2021-03-29 11:17] LABS: Glucose,Whole Blood 164 mg/dL (75-99)
[2021-03-29 12:32] LABS: Glucose,Whole Blood 100 mg/dL (75-99)
--- NOTE | 2021-03-29 14:44 | P.HPIM ---
History of Present Illness H&P Date: 03/28/21 Chief Complaint: Nausea/Vomiting/Diarrhea 30-year-old male patient presents to the emergency room with 2 days of vomiting. Patient states he vomited all day yesterday too numerous to count. He denies any hematochezia or hematemesis. He states that today he developed a headache and a cough. He has had some sick contacts but is unable to tell me what illnesses he was exposed to. He states that he has headache that is 6 out of 10 with some diffuse abdominal pain. He has a history of asthma, insulin-dependent diabetes, gastroparesis. He is a pack-a-day smoker but denies any alcohol or drug use. Workup in ED reveals a blood glucose is 1293, pH is 7.06, bicarb of 8. His lactic acid is 6.3; WBC of 23.7, hemoglobin 16.1 with hematocrit of 56.2 and platelet count of 542; chemical profile reveals become/creatinine of 75/1.75 Patient was given 2 L of normal saline and was started at 200 mL an hour. Serum acetone is positive. His creatinine is 2.01, potassium is 6.8. He will be admitted to the hospital ICU for DKA. He was put on DKA protocol and given 6 units of regular insulin IV and started him on an insulin drip. Review of Systems REVIEW OF SYSTEMS: CONSTITUTIONAL: No fever, no malaise, no fatigue. HEENT: No recent visual problems or hearing problems. Denied any sore throat. CARDIOVASCULAR: No chest pain, orthopnea, PND, no palpitations, no syncope. PULMONARY: No shortness of breath, no cough, no hemoptysis. GASTROINTESTINAL: No diarrhea, no nausea, no vomiting, no abdominal pain. NEUROLOGICAL: No headaches, no weakness, no numbness. HEMATOLOGICAL: Denies any bleeding or petechiae. GENITOURINARY: Denies any burning micturition, frequency, or urgency. MUSCULOSKELETAL/RHEUMATOLOGICAL: Denies any joint pain, swelling, or any muscle pain. ENDOCRINE: Denies any polyuria or polydipsia. The rest of the 14-point review of systems is negative. Past Medical History Past Medical History: Asthma, Diabetes Mellitus, Osteoarthritis (OA) Additional Past Medical History / Comment(s): IDDM type I, diabetic gastropa resis, neuropathy bilateral hands/fingers, migraines, arthrtitis fingers/knees, past R hand and L femur fractures. History of Any Multi-Drug Resistant Organisms: MRSA Date of last positivie culture/infection: 04/26/2014 MDRO Source:: Face Past Surgical History: Ear Surgery, Orthopedic Surgery Additional Past Surgical History / Comment(s): R hand surgery d/t fracture-pinned and pins since removed, L leg femur fracture with pin that eventually was removed, bilateral myringotomy with tubes/ear drum repairs. Past Anesthesia/Blood Transfusion Reactions: No Reported Reaction Past Psychological History: Anxiety, Bipolar, Depression Smoking Status: Current every day smoker Past Alcohol Use History: None Reported Past Drug Use History: Marijuana - Past Family History Father Family Medical History: Hyperlipidemia, Hypertension Mother Family Medical History: COPD Additional Family Medical History / Comment(s): home O2, Brother(s) Family Medical History: No Reported History Medications and Allergies Home Medications Medication Instructions Recorded Confirmed Type No Known Home Medications 03/27/21 03/27/21 History Allergies Allergy/AdvReac Type Severity Reaction Status Date / Time latex Allergy Rash/Hives Verified 03/27/21 20:05 Physical Exam Vitals: Vital Signs Temp Pulse Pulse Resp BP Pulse Ox 03/28/21 12:00 98.6 F 93 16 141/85 96 03/28/21 11:00 100 23 137/82 95 03/28/21 10:00 98 16 153/89 94 L 03/28/21 09:00 94 18 169/114 94 L 03/28/21 08:00 98.4 F 105 H 19 154/99 95 03/28/21 07:00 114 H 16 154/94 96 03/28/21 06:00 121 H 23 94 L 03/28/21 05:00 135 H 21 139/98 98 03/28/21 04:00 98.4 F 131 H 18 139/98 95 03/28/21 03:00 131 H 12 96 03/28/21 02:00 146 H 22 144/101 96 03/28/21 01:00 142 H 17 147/96 98 03/28/21 00:21 141 H 10 L 147/96 99 03/28/21 00:00 98.0 F 131 H 23 147/95 98 03/27/21 23:10 98.1 F 134 H 18 98 03/27/21 22:23 97.8 F 105 H 20 108/78 98 03/27/21 21:00 126 H 22 101/66 100 03/27/21 20:00 115 H 22 104/66 98 03/27/21 19:00 111 H 20 114/66 100 03/27/21 18:00 116 H 19 111/66 99 03/27/21 17:24 111/66 03/27/21 17:21 97.8 F 121 H 20 111/66 95 03/27/21 17:20 120 H Intake and Output 03/27/21 03/28/21 03/28/21 22:59 06:59 14:59 Intake Total 1475.716 622.733 Output Total 1300 450 Balance 175.716 172.733 Intake: IV 1400 620 D5-0.45% NaCl with KCl 750 600 20Meq/l 1,000 ml @ 50 mls /hr IV .Q20H ARUNA Rx#: [id number] Sodium Chloride 0.9% 1, 650 20 000 ml @ 200 mls/hr IV . Q5H ARUNA Rx#:[id number] Intake, IV Titration 75.716 2.733 Amount Insulin Regular 100 unit 75.716 2.733 In Sodium Chloride 0.9% 100 ml @ 0.1 UNITS/KG/HR 7.009 mls/hr IV .[id number] ARUNA Rx#:[id number] Output: Urine 1300 450 Other: Voiding Method Urinal Urinal # Voids 1 Weight 54.6 kg 54.8 kg 54.8 kg PHYSICAL EXAMINATION: GENERAL: The patient is alert and oriented x3, not in any acute distress. Well developed, well nourished. HEENT: Pupils are round and equally reacting to light. EOMI. No scleral icterus. No conjunctival pallor. Normocephalic, atraumatic. No pharyngeal erythema. No thyromegaly. CARDIOVASCULAR: S1 and S2 present. No murmurs, rubs, or gallops. PULMONARY: Chest is clear to auscultation, no wheezing or crackles. ABDOMEN: Soft, nontender, nondistended, normoactive bowel sounds. No palpable organomegaly. MUSCULOSKELETAL: No joint swelling or deformity. EXTREMITIES: No cyanosis, clubbing, or pedal edema. NEUROLOGICAL: Gross neurological examination did not reveal any focal deficits. SKIN: No rashes. Results CBC & Chem 7: 03/28/21 04:19 03/28/21 07:51 Labs: Abnormal Lab Results - Last 24 Hours (Table) 03/27/21 03/27/21 03/27/21 Range/Units 17:52 17:52 17:52 WBC 23.7 H (3.8-10.6) k/uL Hct 56.2 H (39.0-53.0) % MCV 111.1 H (80.0-100.0) fL MCHC 28.7 L (31.0-37.0) g/dL Plt Count 542 H (150-450) k/uL Neutrophils # 21.2 H (1.3-7.7) k/uL Monocytes # (0-1.0) k/uL Macrocytosis Marked A VBG pH (7.31-7.41) VBG pCO2 (37-51) mmHg VBG HCO3 (24-28) mmol/L Sodium 133 L (137-145) mmol/L Potassium 6.8 H* (3.5-5.1) mmol/L Chloride 85 L (98-107) mmol/L Carbon Dioxide 6 L* (22-30) mmol/L BUN 71 H (9-20) mg/dL Creatinine 2.01 H (0.66-1.25) mg/dL Glucose 1293 H* (74-99) mg/dL POC Glucose (mg/dL) (75-99) mg/dL Plasma Lactic Acid Neymar (0.7-2.0) mmol/L Phosphorus (2.5-4.5) mg/dL Alkaline Phosphatase 268 H (38-126) U/L Urine Glucose (UA) 4+ H (Negative) Urine Ketones 3+ H (Negative) 03/27/21 03/27/21 03/27/21 Range/Units 17:52 18:36 21:13 WBC (3.8-10.6) k/uL Hct (39.0-53.0) % MCV (80.0-100.0) fL MCHC (31.0-37.0) g/dL Plt Count (150-450) k/uL Neutrophils # (1.3-7.7) k/uL Monocytes # (0-1.0) k/uL Macrocytosis VBG pH 7.06 L* (7.31-7.41) VBG pCO2 29 L (37-51) mmHg VBG HCO3 8 L* (24-28) mmol/L Sodium (137-145) mmol/L Potassium (3.5-5.1) mmol/L Chloride (98-107) mmol/L Carbon Dioxide (22-30) mmol/L BUN (9-20) mg/dL Creatinine (0.66-1.25) mg/dL Glucose (74-99) mg/dL POC Glucose (mg/dL) >600 H (75-99) mg/dL Plasma Lactic Acid Neymar 6.3 H* (0.7-2.0) mmol/L Phosphorus (2.5-4.5) mg/dL Alkaline Phosphatase (38-126) U/L Urine Glucose (UA) (Negative) Urine Ketones (Negative) 03/27/21 03/27/21 03/27/21 Range/Units 22:13 22:17 22:36 WBC (3.8-10.6) k/uL Hct (39.0-53.0) % MCV (80.0-100.0) fL MCHC (31.0-37.0) g/dL Plt Count (150-450) k/uL Neutrophils # (1.3-7.7) k/uL Monocytes # (0-1.0) k/uL Macrocytosis VBG pH (7.31-7.41) VBG pCO2 (37-51) mmHg VBG HCO3 (24-28) mmol/L Sodium (137-145) mmol/L Potassium 6.5 H* (3.5-5.1) mmol/L Chloride (98-107) mmol/L Carbon Dioxide 8 L* (22-30) mmol/L BUN 75 H (9-20) mg/dL Creatinine 1.75 H (0.66-1.25) mg/dL Glucose 927 H* (74-99) mg/dL POC Glucose (mg/dL) >600 H >600 H (75-99) mg/dL Plasma Lactic Acid Neymar (0.7-2.0) mmol/L Phosphorus (2.5-4.5) mg/dL Alkaline Phosphatase (38-126) U/L Urine Glucose (UA) (Negative) Urine Ketones (Negative) 03/27/21 03/28/21 03/28/21 Range/Units 23:53 00:29 00:29 WBC (3.8-10.6) k/uL Hct (39.0-53.0) % MCV (80.0-100.0) fL MCHC (31.0-37.0) g/dL Plt Count (150-450) k/uL Neutrophils # (1.3-7.7) k/uL Monocytes # (0-1.0) k/uL Macrocytosis VBG pH (7.31-7.41) VBG pCO2 (37-51) mmHg VBG HCO3 (24-28) mmol/L Sodium (137-145) mmol/L Potassium (3.5-5.1) mmol/L Chloride (98-107) mmol/L Carbon Dioxide (22-30) mmol/L BUN (9-20) mg/dL Creatinine (0.66-1.25) mg/dL Glucose (74-99) mg/dL POC Glucose (mg/dL) >600 H (75-99) mg/dL Plasma Lactic Acid Neymar 3.9 H* (0.7-2.0) mmol/L Phosphorus 5.4 H (2.5-4.5) mg/dL Alkaline Phosphatase (38-126) U/L Urine Glucose (UA) (Negative) Urine Ketones (Negative) 03/28/21 03/28/21 03/28/21 Range/Units 00:29 01:52 02:51 WBC (3.8-10.6) k/uL Hct (39.0-53.0) % MCV (80.0-100.0) fL MCHC (31.0-37.0) g/dL Plt Count (150-450) k/uL Neutrophils # (1.3-7.7) k/uL Monocytes # (0-1.0) k/uL Macrocytosis VBG pH (7.31-7.41) VBG pCO2 (37-51) mmHg VBG HCO3 (24-28) mmol/L Sodium (137-145) mmol/L Potassium 5.5 H (3.5-5.1) mmol/L Chloride 108 H (98-107) mmol/L Carbon Dioxide 10 L (22-30) mmol/L BUN 72 H (9-20) mg/dL Creatinine 1.56 H (0.66-1.25) mg/dL Glucose 561 H* (74-99) mg/dL POC Glucose (mg/dL) 293 H 237 H (75-99) mg/dL Plasma Lactic Acid Neymar (0.7-2.0) mmol/L Phosphorus (2.5-4.5) mg/dL Alkaline Phosphatase (38-126) U/L Urine Glucose (UA) (Negative) Urine Ketones (Negative) 03/28/21 03/28/21 03/28/21 Range/Units 04:03 04:19 04:19 WBC 25.5 H (3.8-10.6) k/uL Hct (39.0-53.0) % MCV (80.0-100.0) fL MCHC (31.0-37.0) g/dL Plt Count 461 H (150-450) k/uL Neutrophils # 21.7 H (1.3-7.7) k/uL Monocytes # 1.1 H (0-1.0) k/uL Macrocytosis VBG pH (7.31-7.41) VBG pCO2 (37-51) mmHg VBG HCO3 (24-28) mmol/L Sodium 146 H (137-145) mmol/L Potassium (3.5-5.1) mmol/L Chloride 112 H (98-107) mmol/L Carbon Dioxide 20 L (22-30) mmol/L BUN 64 H (9-20) mg/dL Creatinine (0.66-1.25) mg/dL Glucose (74-99) mg/dL POC Glucose (mg/dL) 200 H (75-99) mg/dL Plasma Lactic Acid Neymar (0.7-2.0) mmol/L Phosphorus (2.5-4.5) mg/dL Alkaline Phosphatase (38-126) U/L Urine Glucose (UA) (Negative) Urine Ketones (Negative) 03/28/21 03/28/21 03/28/21 Range/Units 05:05 06:01 06:54 WBC (3.8-10.6) k/uL Hct (39.0-53.0) % MCV (80.0-100.0) fL MCHC (31.0-37.0) g/dL Plt Count (150-450) k/uL Neutrophils # (1.3-7.7) k/uL Monocytes # (0-1.0) k/uL Macrocytosis VBG pH (7.31-7.41) VBG pCO2 (37-51) mmHg VBG HCO3 (24-28) mmol/L Sodium (137-145) mmol/L Potassium (3.5-5.1) mmol/L Chloride (98-107) mmol/L Carbon Dioxide (22-30) mmol/L BUN (9-20) mg/dL Creatinine (0.66-1.25) mg/dL Glucose (74-99) mg/dL POC Glucose (mg/dL) 261 H 145 H 146 H (75-99) mg/dL Plasma Lactic Acid Neymar (0.7-2.0) mmol/L Phosphorus (2.5-4.5) mg/dL Alkaline Phosphatase (38-126) U/L Urine Glucose (UA) (Negative) Urine Ketones (Negative) 03/28/21 03/28/21 03/28/21 Range/Units 07:51 08:15 09:09 WBC (3.8-10.6) k/uL Hct (39.0-53.0) % MCV (80.0-100.0) fL MCHC (31.0-37.0) g/dL Plt Count (150-450) k/uL Neutrophils # (1.3-7.7) k/uL Monocytes # (0-1.0) k/uL Macrocytosis VBG pH (7.31-7.41) VBG pCO2 (37-51) mmHg VBG HCO3 (24-28) mmol/L Sodium (137-145) mmol/L Potassium (3.5-5.1) mmol/L Chloride 112 H (98-107) mmol/L Carbon Dioxide (22-30) mmol/L BUN 57 H (9-20) mg/dL Creatinine (0.66-1.25) mg/dL Glucose (74-99) mg/dL POC Glucose (mg/dL) 137 H 138 H (75-99) mg/dL Plasma Lactic Acid Neymar (0.7-2.0) mmol/L Phosphorus (2.5-4.5) mg/dL Alkaline Phosphatase (38-126) U/L Urine Glucose (UA) (Negative) Urine Ketones (Negative) 03/28/21 Range/Units 11:41 WBC (3.8-10.6) k/uL Hct (39.0-53.0) % MCV (80.0-100.0) fL MCHC (31.0-37.0) g/dL Plt Count (150-450) k/uL Neutrophils # (1.3-7.7) k/uL Monocytes # (0-1.0) k/uL Macrocytosis VBG pH (7.31-7.41) VBG pCO2 (37-51) mmHg VBG HCO3 (24-28) mmol/L Sodium (137-145) mmol/L Potassium (3.5-5.1) mmol/L Chloride (98-107) mmol/L Carbon Dioxide (22-30) mmol/L BUN (9-20) mg/dL Creatinine (0.66-1.25) mg/dL Glucose (74-99) mg/dL POC Glucose (mg/dL) 174 H (75-99) mg/dL Plasma Lactic Acid Neymar (0.7-2.0) mmol/L Phosphorus (2.5-4.5) mg/dL Alkaline Phosphatase (38-126) U/L Urine Glucose (UA) (Negative) Urine Ketones (Negative) Thrombosis Risk Factor Assmnt - Choose All That Apply Any of the Below Risk Factors Present?: No Other Risk Factors: Yes Each Risk Factor Represents 2 Points: Patient confined to bed Other congenital or acquired thrombophilia - If yes, enter type in comment: No Thrombosis Risk Factor Assessment Total Risk Factor Score: 2 Thrombosis Risk Factor Assessment Level: Low Risk Assessment and Plan Assessment: 1. Acute DKA; patient presented with a blood glucose greater than 1293, with potassium of 6.8; pH of 7.06, pCO2 of 29 and bicarb of 8 on venous blood gases - Patient received IV fluid bolus in ED followed by continuous IV fluid hydration, received IV insulin with insulin infusion per DKA protocol; we will continue to monitor electrolytes every 4 hours with adjustments in insulin drip and IV fluids as indicated 2. Diabetes mellitus type; patient is noncompliant to his diabetes regimen; counseling done 3. Acute renal injury; continue with IV fluid hydration as indicated above; we will monitor strict TAYLER's, daily weights, renal function and electrolytes; avoid nephrotoxins and hypotension 4. Leukocytosis; possibly the active; we will initiate sepsis workup if WBC remains elevated 5. Diabetic gastroparesis/neuropathy; currently not taking any medications; we will monitor closely DVT prophylaxis; SCDs/subcu heparin CODE STATUS; full code
[2021-03-29 15:17] LABS: African American GFR (CKD) >90 (>60 ml/min/1.73 sqM); Anion Gap 6 mmol/L; Blood Urea Nitrogen 21 mg/dL (9-20); Carbon Dioxide 29 mmol/L (22-30); Chloride 101 mmol/L (98-107); Glucose 158 mg/dL (74-99); Non-African American GFR(CKD) >90 (>60 ml/min/1.73 sqM); Sodium 136 mmol/L (137-145)
[2021-03-29 15:21] LABS: Basophils % (A) 0 %; Eosinophils # (A) 0.1 k/uL (0-0.7); Eosinophils % (A) 1 %; HCT 44.4 % (39.0-53.0); HGB 13.9 gm/dL (13.0-17.5); Lymphocytes % (A) 21 %; MCH 31.1 pg (25.0-35.0); MCHC 31.2 g/dL (31.0-37.0); MCV 99.5 fL (80.0-100.0); Mean Platelet Volume 7.5; Monocytes # (A) 0.6 k/uL (0-1.0); Monocytes % (A) 6 %; Neutrophils # (A) 6.7 k/uL (1.3-7.7); Neutrophils % (A) 69 %; Platelet Count 297 k/uL (150-450); RBC 4.47 m/uL (4.30-5.90); RDW 13.3 % (11.5-15.5); WBC 9.6 k/uL (3.8-10.6)
[2021-03-29 16:03] VITALS: PULSE 80; TEMP 98.6
[2021-03-29 16:05] VITALS: BP 133/93
[2021-03-29] MEDS ORDERED: INSULIN ASPART (NovoLOG) 100 UNIT/ML VIAL SQ SCH (17:30)
--- NOTE | 2021-05-13 12:52 | P.DS ---
Providers Date of admission: 03/27/21 21:24 Expected date of discharge: 03/29/21 Attending physician: Wayne Moe Consults: 03/27/21 19:28 Consult Physician Routine Consulting Provider: Montserrat Blair Consult Reason/Comments: dka Do you want consulting provider notified?: Already Contacted Primary care physician: Michelet Aguirre [facility] Hospital Course: 30-year-old male patient presents to the emergency room with 2 days of vomiting. Patient states he vomited all day yesterday too numerous to count. He denies any hematochezia or hematemesis. He states that today he developed a headache and a cough. He has had some sick contacts but is unable to tell me what illnesses he was exposed to. He states that he has headache that is 6 out of 10 with some diffuse abdominal pain. He has a history of asthma, insulin-dependent diabetes, gastroparesis. He is a pack-a-day smoker but denies any alcohol or drug use. Workup in ED reveals a blood glucose is 1293, pH is 7.06, bicarb of 8. His lactic acid is 6.3; WBC of 23.7, hemoglobin 16.1 with hematocrit of 56.2 and platelet count of 542; chemical profile reveals become/creatinine of 75/1.75 Patient was given 2 L of normal saline and was started at 200 mL an hour. Serum acetone is positive. His creatinine is 2.01, potassium is 6.8. He will be admitted to the hospital ICU for DKA. He was put on DKA protocol and given 6 uni ts of regular insulin IV and started him on an insulin drip. 1. Acute DKA; patient presented with a blood glucose greater than 1293, with potassium of 6.8; pH of 7.06, pCO2 of 29 and bicarb of 8 on venous blood gases - Patient received IV fluid bolus in ED followed by continuous IV fluid hydration, received IV insulin with insulin infusion per DKA protocol; we will continue to monitor electrolytes every 4 hours with adjustments in insulin drip and IV fluids as indicated 2. Diabetes mellitus type; patient is noncompliant to his diabetes regimen; counseling done 3. Acute renal injury; continue with IV fluid hydration as indicated above; we will monitor strict TAYLER's, daily weights, renal function and electrolytes; avoid nephrotoxins and hypotension 4. Leukocytosis; possibly the active; we will initiate sepsis workup if WBC remains elevated 5. Diabetic gastroparesis/neuropathy; currently not taking any medications; we will monitor closely 03/29/2021, the patient is doing well. His communicating. He is tolerating diet. DKA has resolved and the patient has been switched to long-acting insulin. No hypoglycemic events. Awake. Alert. He is on room air oxygen. No other significant events overnight. The plan is to discharge this patient home today from the intensive care unit. His blood work from yesterday was noted. He is currently on Levemir insulin 36 units daily along with 8 units with meals and a sliding scale coverage. Patient discharged home on a stable condition Patient Condition at Discharge: Fair Plan - Discharge Summary Discharge Rx Participant: Yes New Discharge Prescriptions: New INSULIN ASPART (NovoLOG) [NovoLOG (formulary)] 5 unit SQ AC-TID ml INSULIN ASPART (NovoLOG) [NovoLOG (formulary)] 0 unit SQ ACHS ml Insulin Detemir (Levemir) [Levemir] 36 unit SQ DAILY@0700 ml Discharge Medication List INSULIN ASPART (NovoLOG) [NovoLOG (formulary)] 0 unit SQ ACHS ml 03/29/21 [Rx] INSULIN ASPART (NovoLOG) [NovoLOG (formulary)] 5 unit SQ AC-TID ml 03/29/21 [Rx] Insulin Detemir (Levemir) [Levemir] 36 unit SQ DAILY@0700 ml 03/29/21 [Rx] Follow up Appointment(s)/Referral(s): Nonstaff,Physician [REFERRING] - 1-2 days Patient Instructions/Handouts: How to Stop Smoking (DC), Cigarette Smoking and Your Health (GEN), Diabetic Ketoacidosis (DC), Diabetic Ketoacidosis (GEN) Discharge Disposition: HOME SELF-CARE
== END 2021-03-29 16:10 | disposition home or self-care (01) ==
LOC: SUPCPDRO 17:10 → EC 17:10 → INTOOBSV 21:24 → 2SICU 21:24 → UNDODISOB 03-28 21:24 → UNDODISIN 03-29 17:03
PROVIDERS: ADMIT Hospitalist; ATTEND Hospitalist
DX: E10.10 Type 1 diabetes mellitus with ketoacidosis without coma (principal); N17.9 Acute kidney failure, unspecified; K31.84 Gastroparesis; E10.43 Type 1 diabetes mellitus with diabetic autonomic (poly)neuropathy; Z91.14 Patient's other noncompliance with medication regimen; M19.90 Unspecified osteoarthritis, unspecified site; F41.9 Anxiety disorder, unspecified; F31.9 Bipolar disorder, unspecified; G43.909 Migraine, unspecified, not intractable, without status migrainosus; D72.829 Elevated white blood cell count, unspecified; J45.909 Unspecified asthma, uncomplicated; F17.210 Nicotine dependence, cigarettes, uncomplicated; Z20.822 Contact with and (suspected) exposure to COVID-19; Z71.89 Other specified counseling; Z79.4 Long term (current) use of insulin; Z91.040 Latex allergy status; Z86.14 Personal history of Methicillin resistant Staphylococcus aureus infection; Z98.890 Other specified postprocedural states; Z74.01 Bed confinement status; Z82.49 Family history of ischemic heart disease and other diseases of the circulatory system; Z82.5 Family history of asthma and other chronic lower respiratory diseases; Z83.49 Family history of other endocrine, nutritional and metabolic diseases
CPT/HCPCS: 96361 ×3; 96365; 96366; 96375; 99285; 36415; 86900; 86901; 80051 ×2; 80053; 80048; 82150; 82565 ×2; 82803; 82009; 83605 ×2; 83690; 84100; 82947 ×2; 84520 ×2; 85025 ×3; 86850; 81003; 87635; 71045; G0378 ×3; J2405; 96374

== ENCOUNTER 2022-01-31 10:36 | Observation (INO) | payer OTHER ==
[2022-01-31 10:40] LABS: Glucose,Whole Blood >600 mg/dL (70-110)
[2022-01-31] MEDS ORDERED: SODIUM CHLORIDE 0.9% 1,000 ML IV STA (10:58)
[2022-01-31] MEDS ORDERED: ONDANSETRON 4 MG/2 ML VIAL IVP STA (10:58)
[2022-01-31] MEDS ORDERED: FAMOTIDINE 20 MG/2 ML VIAL IV STA (10:59)
--- NOTE | 2022-01-31 11:01 | ED ---
General Adult HPI - General Chief complaint: Nausea/Vomiting/Diarrhea Stated complaint: Vomiting Time Seen by Provider: 01/31/22 10:39 Source: patient, EMS, RN notes reviewed Mode of arrival: EMS Limitations: no limitations - History of Present Illness Initial comments: Patient is a pleasant 31-year-old male presenting to the emergency department with concerns for nausea and vomiting. Symptoms started a couple days ago. Patient is also had some loose stools. Patient has had high blood sugars. Patient has had similar symptoms previously associated with with his diabetes. Patient has had some abdominal discomfort. No fever. - Related Data Previous Rx's Medication Instructions Recorded INSULIN ASPART (NovoLOG) [NovoLOG 0 unit SQ ACHS ml 03/29/21 (formulary)] INSULIN ASPART (NovoLOG) [NovoLOG 5 unit SQ AC-TID ml 03/29/21 (formulary)] Insulin Detemir (Levemir) [Levemir] 36 unit SQ DAILY@0700 ml 03/29/21 Allergies Allergy/AdvReac Type Severity Reaction Status Date / Time latex Allergy Rash/Hives Verified 03/27/21 20:05 Review of Systems ROS Statement: Those systems with pertinent positive or pertinent negative responses have been documented in the HPI. ROS Other: All systems not noted in ROS Statement are negative. Constitutional: Denies: fever Eyes: Denies: eye pain ENT: Denies: ear pain Respiratory: Denies: dyspnea Cardiovascular: Denies: chest pain Endocrine: Reports: fatigue Gastrointestinal: Reports: abdominal pain, nausea, vomiting Genitourinary: Denies: dysuria Musculoskeletal: Denies: back pain Skin: Denies: rash Neurological: Denies: headache Past Medical History Past Medical History: Asthma, Diabetes Mellitus, Osteoarthritis (OA) Additional Past Medical History / Comment(s): IDDM type I, diabetic gastroparesis, neuropathy bilateral hands/fingers, migraines, arthrtitis fingers/knees, past R hand and L femur fractures. History of Any Multi-Drug Resistant Organisms: MRSA Date of last positivie culture/infection: 04/26/2014 MDRO Source:: Face Past Surgical History: Ear Surgery, Orthopedic Surgery Additional Past Surgical History / Comment(s): R hand surgery d/t fracture- pinned and pins since removed, L leg femur fracture with pin that eventually was removed, bilateral myringotomy with tubes/ear drum repairs. Past Anesthesia/Blood Transfusion Reactions: No Reported Reaction Past Psychological History: Anxiety, Bipolar, Depression Smoking Status: Current every day smoker Past Alcohol Use History: None Reported Past Drug Use History: Marijuana - Past Family History Father Family Medical History: Hyperlipidemia, Hypertension Mother Family Medical History: COPD Additional Family Medical History / Comment(s): home O2, Brother(s) Family Medical History: No Reported History General Exam Limitations: no limitations General appearance: alert, in no apparent distress Head exam: Present: normocephalic Eye exam: Present: normal appearance ENT exam: Present: mucous membranes dry Neck exam: Present: normal inspection Respiratory exam: Present: normal lung sounds bilaterally Cardiovascular Exam: Present: tachycardia GI/Abdominal exam: Present: soft. Absent: tenderness Extremities exam: Present: normal inspection Neurological exam: Present: alert. Absent: motor sensory deficit Psychiatric exam: Present: normal affect, normal mood Skin exam: Present: normal color Course Vital Signs 01/31/22 01/31/22 10:41 11:18 Temperature 98.3 F Pulse Rate 120 H 117 H Respiratory 18 15 Rate Blood Pressure 146/103 151/96 O2 Sat by Pulse 99 98 Oximetry Medical Decision Making - Medical Decision Making Patient reevaluated and improved. Patient resting comfortably in bed. There is concern for DKA. IV fluids will be continued as well as insulin drip. Case was discussed with Dr. Dawn, who will admit his patient. At this point he recommends just IV fluids for hypophosphatemia and repeat levels tomorrow. - Lab Data Result diagrams: 01/31/22 11:06 01/31/22 11:06 Lab Results 01/31/22 01/31/22 01/31/22 Range/Units 10:39 11:06 11:06 WBC 17.8 H (3.8-10.6) k/uL RBC 5.11 (4.30-5.90) m/uL Hgb 15.8 (13.0-17.5) gm/dL Hct 52.4 (39.0-53.0) % MCV 102.5 H (80.0-100.0) fL MCH 30.9 (25.0-35.0) pg MCHC 30.1 L (31.0-37.0) g/dL RDW 14.2 (11.5-15.5) % Plt Count 460 H (150-450) k/uL MPV 8.6 Neutrophils % 90 % Lymphocytes % 6 % Monocytes % 2 % Eosinophils % 0 % Basophils % 0 % Neutrophils # 16.0 H (1.3-7.7) k/uL Lymphocytes # 1.1 (1.0-4.8) k/uL Monocytes # 0.4 (0-1.0) k/uL Eosinophils # 0.0 (0-0.7) k/uL Basophils # 0.0 (0-0.2) k/uL Hypochromasia Marked Macrocytosis Slight Sodium (137-145) mmol/L Potassium (3.5-5.1) mmol/L Chloride (98-107) mmol/L Carbon Dioxide (22-30) mmol/L Anion Gap mmol/L BUN (9-20) mg/dL Creatinine (0.66-1.25) mg/dL Est GFR (CKD-EPI)AfAm (>60 ml/min/1.73 sqM) Est GFR (CKD-EPI)NonAf (>60 ml/min/1.73 sqM) Glucose (74-99) mg/dL POC Glucose (mg/dL) >600 H (70-110) mg/dL POC Glu General Labor Forklift Operator ID Romulus, Raphael Calcium (8.4-10.2) mg/dL Phosphorus (2.5-4.5) mg/dL Magnesium (1.6-2.3) mg/dL Total Bilirubin (0.2-1.3) mg/dL AST (17-59) U/L ALT (4-49) U/L Alkaline Phosphatase (38-126) U/L Total Protein (6.3-8.2) g/dL Albumin (3.5-5.0) g/dL Urine Color Colorless Urine Appearance Clear (Clear) Urine pH 5.0 (5.0-8.0) Ur Specific [place] 1.027 (1.001-1.035) Urine Protein Negative (Negative) Urine Glucose (UA) 4+ H (Negative) Urine Ketones 4+ H (Negative) Urine Blood Negative (Negative) Urine Nitrite Negative (Negative) Urine Bilirubin Negative (Negative) Urine Urobilinogen <2.0 (<2.0) mg/dL Ur Leukocyte Esterase Negative (Negative) Acetone, Qual (Negative) 01/31/22 Range/Units 11:06 WBC (3.8-10.6) k/uL RBC (4.30-5.90) m/uL Hgb (13.0-17.5) gm/dL Hct (39.0-53.0) % MCV (80.0-100.0) fL MCH (25.0-35.0) pg MCHC (31.0-37.0) g/dL RDW (11.5-15.5) % Plt Count (150-450) k/uL MPV Neutrophils % % Lymphocytes % % Monocytes % % Eosinophils % % Basophils % % Neutrophils # (1.3-7.7) k/uL Lymphocytes # (1.0-4.8) k/uL Monocytes # (0-1.0) k/uL Eosinophils # (0-0.7) k/uL Basophils # (0-0.2) k/uL Hypochromasia Macrocytosis Sodium 137 (137-145) mmol/L Potassium 5.6 H (3.5-5.1) mmol/L Chloride 90 L (98-107) mmol/L Carbon Dioxide 12 L (22-30) mmol/L Anion Gap 35 mmol/L BUN 46 H (9-20) mg/dL Creatinine 1.02 (0.66-1.25) mg/dL Est GFR (CKD-EPI)AfAm >90 (>60 ml/min/1.73 sqM) Est GFR (CKD-EPI)NonAf >90 (>60 ml/min/1.73 sqM) Glucose 745 H* (74-99) mg/dL POC Glucose (mg/dL) (70-110) mg/dL POC Glu General Labor Forklift Operator ID Calcium 9.4 (8.4-10.2) mg/dL Phosphorus 10.2 H* (2.5-4.5) mg/dL Magnesium 2.3 (1.6-2.3) mg/dL Total Bilirubin 0.8 (0.2-1.3) mg/dL AST 29 (17-59) U/L ALT 28 (4-49) U/L Alkaline Phosphatase 235 H (38-126) U/L Total Protein 7.5 (6.3-8.2) g/dL Albumin 4.6 (3.5-5.0) g/dL Urine Color Urine Appearance (Clear) Urine pH (5.0-8.0) Ur Specific [place] (1.001-1.035) Urine Protein (Negative) Urine Glucose (UA) (Negative) Urine Ketones (Negative) Urine Blood (Negative) Urine Nitrite (Negative) Urine Bilirubin (Negative) Urine Urobilinogen (<2.0) mg/dL Ur Leukocyte Esterase (Negative) Acetone, Qual Positive (Negative) - Radiology Data Radiology results: image reviewed (Chest x-ray shows no acute process) Critical Care Time Critical Care Time: Yes Total Critical Care Time: 32 Disposition Clinical Impression: Diabetic ketoacidosis, Hyperphosphatemia Disposition: ADMITTED IP TO THIS HOSP Is patient prescribed a controlled substance at d/c from ED?: No Referrals: None,Stated [REFERRING] - 1-2 days Time of Disposition: 12:17
[2022-01-31 11:19] LABS: Appearance,Urine Clear (Clear); Basophils % (A) 0 %; Bilirubin,Urine Negative (Negative); Blood,Urine Negative (Negative); Color,Urine Colorless; Eosinophils % (A) 0 %; Glucose,Urine (UA) 4+ (Negative); HCT 52.4 % (39.0-53.0); HGB 15.8 gm/dL (13.0-17.5); Hypochromasia Marked; Leukocyte Esterase,Urine Negative (Negative); Lymphocytes # (A) 1.1 k/uL (1.0-4.8); Lymphocytes % (A) 6 %; MCH 30.9 pg (25.0-35.0); MCHC 30.1 g/dL (31.0-37.0); MCV 102.5 fL (80.0-100.0); Macrocytosis Slight; Mean Platelet Volume 8.6; Monocytes # (A) 0.4 k/uL (0-1.0); Monocytes % (A) 2 %; Neutrophils % (A) 90 %; Nitrite,Urine Negative (Negative); Platelet Count 460 k/uL (150-450); Protein,Urine Negative (Negative); RBC 5.11 m/uL (4.30-5.90); RDW 14.2 % (11.5-15.5); Specific Gravity,Urine 1.027 (1.001-1.035); Urobilinogen,Urine <2.0 mg/dL (<2.0); WBC 17.8 k/uL (3.8-10.6)
[2022-01-31 11:24] LABS: Ketones,Urine 4+ (Negative)
[2022-01-31 11:39] LABS: ALT 28 U/L (4-49); AST 29 U/L (17-59); African American GFR (CKD) >90 (>60 ml/min/1.73 sqM); Albumin 4.6 g/dL (3.5-5.0); Alkaline Phosphatase 235 U/L (38-126); Anion Gap 35 mmol/L; Blood Urea Nitrogen 46 mg/dL (9-20); Calcium 9.4 mg/dL (8.4-10.2); Carbon Dioxide 12 mmol/L (22-30); Chloride 90 mmol/L (98-107); Magnesium 2.3 mg/dL (1.6-2.3); Non-African American GFR(CKD) >90 (>60 ml/min/1.73 sqM); Potassium 5.6 mmol/L (3.5-5.1); Sodium 137 mmol/L (137-145); Total Bilirubin 0.8 mg/dL (0.2-1.3); Total Protein 7.5 g/dL (6.3-8.2)
--- NOTE | 2022-01-31 11:54 | XR ---
EXAMINATION TYPE: XR chest 1V portable DATE OF EXAM: 01/31/2022 11:33 AM COMPARISON: Chest radiographs from 03/27/2021 TECHNIQUE: XR chest 1V portable Portable AP radiograph of the chest. CLINICAL INDICATION:Male, 31 years old with history of Vomiting; FINDINGS: Lungs/Pleura: There is no evidence of pleural effusion, focal consolidation, or pneumothorax. Pulmonary vascularity: Unremarkable. Heart/mediastinum: Cardiomediastinal silhouette is unremarkable. Musculoskeletal: No acute osseous pathology. IMPRESSION: No acute cardiopulmonary disease/process.
[2022-01-31 11:59] LABS: Glucose 745 mg/dL (74-99)
[2022-01-31 12:00] LABS: Phosphorus 10.2 mg/dL (2.5-4.5)
[2022-01-31] MEDS ORDERED: INSULIN REGULAR BOLUS (FROM DRIP BAG) IV ONE (12:17)
[2022-01-31] MEDS ORDERED: SODIUM CHLORIDE 0.9% 1,000 ML IV ONE (12:17)
[2022-01-31] MEDS: INSULIN REGULAR 100 UNIT in SODIUM CHLORIDE 0.9% 100 ML IV SCH (13:06)
[2022-01-31 13:52] LABS: Glucose,Whole Blood 544 mg/dL (70-110)
[2022-01-31 14:46] LABS: Glucose,Whole Blood 418 mg/dL (70-110)
[2022-01-31] MEDS: SODIUM CHLORIDE 0.9% 1,000 ML IV SCH ×3 (14:57→21:49)
[2022-01-31] MEDS ORDERED: LORazepam 2 MG/ML INJ IV PRN ×3 (15:20)
[2022-01-31] MEDS: D5-0.45% NACL WITH KCL 20MEQ/L 1,000 ML IV SCH ×3 (15:48→22:45)
[2022-01-31] MEDS: NICOTINE 21MG/24HR PATCH TRANSDERM SCH (15:51)
[2022-01-31 15:58] LABS: Glucose,Whole Blood 221 mg/dL (70-110)
[2022-01-31] MEDS: INSULIN DETEMIR (LEVEMIR) 100 UNIT/ML SYR SQ SCH (16:22)
[2022-01-31 16:48] LABS: Glucose,Whole Blood 194 mg/dL (70-110)
[2022-01-31 17:09] LABS: African American GFR (CKD) >90 (>60 ml/min/1.73 sqM); Anion Gap 25 mmol/L; Blood Urea Nitrogen 43 mg/dL (9-20); Carbon Dioxide 15 mmol/L (22-30); Chloride 104 mmol/L (98-107); Glucose 275 mg/dL (74-99); Non-African American GFR(CKD) >90 (>60 ml/min/1.73 sqM); Phosphorus 5.2 mg/dL (2.5-4.5); Potassium 4.8 mmol/L (3.5-5.1); Sodium 144 mmol/L (137-145)
[2022-01-31 17:46] LABS: Glucose,Whole Blood 169 mg/dL (70-110)
[2022-01-31 18:50] LABS: Glucose,Whole Blood 189 mg/dL (70-110)
[2022-01-31 19:51] LABS: Glucose,Whole Blood 147 mg/dL (70-110)
[2022-01-31 20:24] LABS: African American GFR (CKD) >90 (>60 ml/min/1.73 sqM); Anion Gap 12 mmol/L; Blood Urea Nitrogen 35 mg/dL (9-20); Carbon Dioxide 24 mmol/L (22-30); Chloride 103 mmol/L (98-107); Glucose 168 mg/dL (74-99); Non-African American GFR(CKD) >90 (>60 ml/min/1.73 sqM); Phosphorus 2.8 mg/dL (2.5-4.5); Potassium 4.5 mmol/L (3.5-5.1); Sodium 139 mmol/L (137-145)
[2022-01-31 20:42] LABS: Glucose,Whole Blood 125 mg/dL (70-110)
[2022-01-31 21:51] LABS: Glucose,Whole Blood 104 mg/dL (70-110)
[2022-01-31 22:44] LABS: Glucose,Whole Blood 87 mg/dL (70-110)
[2022-01-31 23:52] LABS: Glucose,Whole Blood 113 mg/dL (70-110)
[2022-02-01 00:10] LABS: Glucose 128 mg/dL (74-99)
[2022-02-01 00:11] LABS: ALT 22 U/L (4-49); AST 22 U/L (17-59); African American GFR (CKD) >90 (>60 ml/min/1.73 sqM); Albumin 3.7 g/dL (3.5-5.0); Alkaline Phosphatase 205 U/L (38-126); Anion Gap 11 mmol/L; Blood Urea Nitrogen 28 mg/dL (9-20); Calcium 8.5 mg/dL (8.4-10.2); Carbon Dioxide 26 mmol/L (22-30); Chloride 101 mmol/L (98-107); Non-African American GFR(CKD) >90 (>60 ml/min/1.73 sqM); Sodium 138 mmol/L (137-145); Total Bilirubin 0.9 mg/dL (0.2-1.3); Total Protein 6.6 g/dL (6.3-8.2)
[2022-02-01 00:51] LABS: Glucose,Whole Blood 108 mg/dL (70-110)
[2022-02-01 01:51] LABS: Glucose,Whole Blood 104 mg/dL (70-110)
[2022-02-01 03:00] LABS: Glucose,Whole Blood 144 mg/dL (70-110)
[2022-02-01 04:12] LABS: Glucose,Whole Blood 146 mg/dL (70-110)
[2022-02-01] MEDS: INSULIN REGULAR 100 UNIT in SODIUM CHLORIDE 0.9% 100 ML IV SCH (04:19)
[2022-02-01] MEDS: INSULIN ASPART (NovoLOG) 100 UNIT/ML VIAL SQ SCH ×4 (04:19→17:24)
[2022-02-01] MEDS: SODIUM CHLORIDE 0.9% 1,000 ML IV SCH ×2 (04:20→21:59)
[2022-02-01] MEDS: D5-0.45% NACL WITH KCL 20MEQ/L 1,000 ML IV SCH ×3 (04:20→21:49)
[2022-02-01 05:11] LABS: Glucose,Whole Blood 123 mg/dL (70-110)
[2022-02-01 05:37] LABS: Basophils % (A) 0 %; Eosinophils # (A) 0.1 k/uL (0-0.7); Eosinophils % (A) 1 %; HCT 45.5 % (39.0-53.0); HGB 14.7 gm/dL (13.0-17.5); Lymphocytes # (A) 2.4 k/uL (1.0-4.8); Lymphocytes % (A) 15 %; MCH 30.5 pg (25.0-35.0); MCHC 32.2 g/dL (31.0-37.0); Monocytes # (A) 0.9 k/uL (0-1.0); Monocytes % (A) 5 %; Neutrophils # (A) 12.3 k/uL (1.3-7.7); Neutrophils % (A) 76 %; Platelet Count 448 k/uL (150-450); RBC 4.81 m/uL (4.30-5.90); RDW 13.9 % (11.5-15.5); WBC 16.1 k/uL (3.8-10.6)
[2022-02-01 05:45] LABS: MCV 94.6 fL (80.0-100.0)
[2022-02-01 05:57] LABS: ALT 22 U/L (4-49); AST 27 U/L (17-59); African American GFR (CKD) >90 (>60 ml/min/1.73 sqM); Albumin 3.7 g/dL (3.5-5.0); Alkaline Phosphatase 195 U/L (38-126); Anion Gap 9 mmol/L; Blood Urea Nitrogen 22 mg/dL (9-20); Calcium 8.7 mg/dL (8.4-10.2); Carbon Dioxide 28 mmol/L (22-30); Chloride 100 mmol/L (98-107); Glucose 114 mg/dL (74-99); Non-African American GFR(CKD) >90 (>60 ml/min/1.73 sqM); Potassium 4.1 mmol/L (3.5-5.1); Sodium 137 mmol/L (137-145); Total Bilirubin 0.9 mg/dL (0.2-1.3); Total Protein 6.6 g/dL (6.3-8.2)
[2022-02-01 06:22] LABS: Glucose,Whole Blood 102 mg/dL (70-110)
[2022-02-01 07:13] LABS: Glucose,Whole Blood 104 mg/dL (70-110)
[2022-02-01] MEDS: NICOTINE 21MG/24HR PATCH TRANSDERM SCH (09:05)
[2022-02-01 10:20] VITALS: BMI 20.7
[2022-02-01 11:33] LABS: Glucose,Whole Blood 93 mg/dL (70-110)
[2022-02-01 17:04] LABS: Glucose,Whole Blood 208 mg/dL (70-110)
[2022-02-01] MEDS: FAMOTIDINE 20 MG TAB PO SCH (17:23)
[2022-02-01] MEDS ORDERED: PANTOPRAZOLE 40 MG TABLET PO SCH (19:45)
[2022-02-01 20:26] LABS: Glucose,Whole Blood 138 mg/dL (70-110)
[2022-02-01] MEDS: INSULIN DETEMIR (LEVEMIR) 100 UNIT/ML SYR SQ SCH (21:56)
[2022-02-01] MEDS: PANTOPRAZOLE 40 MG TABLET PO SCH (21:56)
[2022-02-02 06:05] LABS: Glucose,Whole Blood 73 mg/dL (70-110)
[2022-02-02] MEDS: PANTOPRAZOLE 40 MG TABLET PO SCH (06:42)
[2022-02-02] MEDS: INSULIN ASPART (NovoLOG) 100 UNIT/ML VIAL SQ SCH ×2 (07:49→12:30)
[2022-02-02] MEDS: NICOTINE 21MG/24HR PATCH TRANSDERM SCH (08:03)
[2022-02-02] MEDS: FAMOTIDINE 20 MG TAB PO SCH (08:05)
[2022-02-02 08:08] VITALS: RESP 16
[2022-02-02] MEDS ORDERED: LOSARTAN 50 MG TAB PO SCH (09:00)
[2022-02-02 11:34] LABS: Glucose,Whole Blood 193 mg/dL (70-110)
[2022-02-02 13:08] VITALS: BP 115/80; PULSE 107; TEMP 98.4
--- NOTE | 2022-02-05 06:39 | HP ---
HISTORY AND PHYSICAL CHIEF COMPLAINT: Uncontrolled diabetes. HISTORY OF PRESENT ILLNESS: This is another admission for this 31-year-old noncompliant type 1 insulin-dependent diabetic. He has not been in my office since October 2020. He apparently ran out of his insulin. REVIEW OF SYSTEMS: He has had no neurologic problems, change in the vision or the hearing, chest pain, abdominal pain, vomiting, history of renal failure, etc. Past medical history, family history, and personal and social histories are all otherwise unremarkable and noncontributory. 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 PHYSICAL EXAMINATION: VITAL SIGNS: Blood pressure is 121/55 with a pulse of 98, respiration of 35, and he is afebrile. GENERAL: Appears to be slender, dehydrated, in no acute distress. SKIN: Dry. LYMPHATIC: Lymph nodes are not enlarged. HEENT: Head, ears, eyes, nose, mouth and throat are normal except for dry mucous membranes. CHEST: Clear. CARDIAC: Demonstrates normal sinus rhythm with no murmurs or extra sounds. ABDOMEN: Flat, soft, and nontender. EXTREMITIES: Normal. NEUROLOGICAL: He is intact. DIAGNOSES: 1. Uncontrolled diabetes. 2. Diabetic ketoacidosis. PLAN: 1. Bedrest. 2. DKA protocol. 3. Re-establish diabetic control. MMODL / IJN: [id number] /
--- NOTE | 2022-02-06 19:55 | DS ---
DISCHARGE SUMMARY CHIEF COMPLAINT: DKA. HISTORY OF PRESENT ILLNESS AND PHYSICAL EXAMINATION: Details of this man's history and physical can be found in the initial workup. LABORATORY STUDIES: While he was in the hospital, he had laboratory studies, details of which can be found in the laboratory section of chart. COURSE IN THE HOSPITAL: After admission he was placed on bedrest, started on intravenous fluids and DKA protocol. His sugars were brought down with insulin drip and he was stabilized and placed back on a basal bolus program. It was felt that he could be discharged and followed up as an outpatient. He may or may not comply. FINAL DIAGNOSES: 1. Diabetic ketoacidosis. 2. Type 1 poorly-controlled insulin dependent diabetes mellitus. OPERATIONS: None. CONSULTATIONS: None. CONDITION: He is improved. STUART / NATHAN: [id number] /
--- NOTE | 2022-02-06 20:10 | PN ---
PROGRESS NOTE CHIEF COMPLAINT: DKA. HISTORY OF PRESENT ILLNESS: This gentleman is doing better. Sugars are slowly coming down. He has had no nausea or vomiting. He is awake and alert. PHYSICAL EXAMINATION: CHEST: Clear. CARDIAC: Normal. ABDOMEN: Flat. Soft and nontender. IMPRESSION: 1. Diabetic ketoacidosis. 2. Uncontrolled type 1 insulin-dependent diabetes. PLAN: Continue with insulin management until his blood sugars come down and he can be placed back on his regular insulin management. MMODL / IJN: [id number] /
== END 2022-02-02 14:00 | disposition home or self-care (01) ==
LOC: EC 10:36 → 3SCARD 12:18 → INTOOBSV 12:18 → 3SCARD 12:44 → UNDODISIN 02-02 14:00
PROVIDERS: ADMIT Family Medicine; ATTEND Family Medicine
DX: E10.10 Type 1 diabetes mellitus with ketoacidosis without coma (principal); E10.43 Type 1 diabetes mellitus with diabetic autonomic (poly)neuropathy; K31.84 Gastroparesis; Z89.022 Acquired absence of left finger(s); E10.42 Type 1 diabetes mellitus with diabetic polyneuropathy; E83.39 Other disorders of phosphorus metabolism; G43.909 Migraine, unspecified, not intractable, without status migrainosus; J45.909 Unspecified asthma, uncomplicated; M17.10 Unilateral primary osteoarthritis, unspecified knee; M19.049 Primary osteoarthritis, unspecified hand; T38.3X6A Underdosing of insulin and oral hypoglycemic [antidiabetic] drugs, initial encounter; Z91.14 Patient's other noncompliance with medication regimen; Z91.19 Patient's noncompliance with other medical treatment and regimen; F31.9 Bipolar disorder, unspecified; F41.9 Anxiety disorder, unspecified; F17.200 Nicotine dependence, unspecified, uncomplicated; Z79.4 Long term (current) use of insulin; Z79.899 Other long term (current) drug therapy; Z91.040 Latex allergy status; Z86.14 Personal history of Methicillin resistant Staphylococcus aureus infection; Z82.5 Family history of asthma and other chronic lower respiratory diseases; Z82.49 Family history of ischemic heart disease and other diseases of the circulatory system; Z83.49 Family history of other endocrine, nutritional and metabolic diseases
CPT/HCPCS: 96374; 96375; 99291; 36415; 80051; 80053 ×2; 82565; 82009; 83735 ×2; 84100 ×2; 82947; 84520; 85025 ×2; 81003; 71045; G0378 ×3; J2405

== ENCOUNTER 2022-09-26 18:14 | Inpatient (IN) | payer OTHER ==
[2022-09-26] MEDS ORDERED: SODIUM CHLORIDE 0.9% 1,000 ML IV STA (18:22)
[2022-09-26 18:26] LABS: Glucose,Whole Blood 329 mg/dL (70-110)
--- NOTE | 2022-09-26 18:37 | ED ---
General Adult HPI - General Chief complaint: Abdominal Pain Stated complaint: Hyperglycemia Time Seen by Provider: 09/26/22 18:20 Source: patient, RN notes reviewed, old records reviewed Mode of arrival: wheelchair Limitations: no limitations - History of Present Illness Initial comments: 32 yo male with history type 1 diabetes presenting with lightheadedness, generalized abdominal pain. He states that his symptoms today are similar to previous episodes of diabetic ketoacidosis. He has been taking his insulin but does not currently have a glucometer and does not know what his blood sugars have been. The patient denies fever. He states he has been drinking water and urinating. He's having normal bowel movements. - Related Data Home Medications Medication Instructions Recorded Confirmed Insulin Aspart [NovoLOG Flexpen] 10 units SQ TID-W/MEALS 01/31/22 09/26/22 Insulin Detemir [Levemir Flextouch 30 units SQ DAILY 09/26/22 09/26/22 Pen] Allergies Allergy/AdvReac Type Severity Reaction Status Date / Time latex Allergy Rash/Hives Verified 09/26/22 19:49 Review of Systems ROS Statement: Those systems with pertinent positive or pertinent negative responses have been documented in the HPI. ROS Other: All systems not noted in ROS Statement are negative. Past Medical History Past Medical History: Asthma, Diabetes Mellitus, Hyperlipidemia, Hypertension, Osteoarthritis (OA) Additional Past Medical History / Comment(s): IDDM type I, diabetic gastroparesis, neuropathy bilateral hands/fingers, migraines, arthrtitis fingers/knees, past R hand and L femur fractures. Previous DKA History of Any Multi-Drug Resistant Organisms: MRSA Date of last positivie culture/infection: 04/26/2014 MDRO Source:: Face Past Surgical History: Ear Surgery, Orthopedic Surgery Additional Past Surgical History / Comment(s): R hand surgery d/t fracture- pinned and pins since removed, L leg femur fracture with pin that eventually was removed, bilateral myringotomy with tubes/ear drum repairs.; Left pinky removal Past Anesthesia/Blood Transfusion Reactions: No Reported Reaction Past Psychological History: Anxiety, Bipolar, Depression Smoking Status: Current every day smoker Past Alcohol Use History: None Reported Past Drug Use History: None Reported - Past Family History Father Family Medical History: Hyperlipidemia, Hypertension, Myocardial Infarction ([place]) Mother Family Medical History: COPD Additional Family Medical History / Comment(s): home O2, Brother(s) Family Medical History: No Reported History General Exam Limitations: no limitations General appearance: lethargic, cachectic Head exam: Present: normocephalic Eye exam: Present: PERRL ENT exam: Present: mucous membranes dry Respiratory exam: Present: respiratory distress (Tachypneic with good air entry). Absent: wheezes Cardiovascular Exam: Present: normal rhythm, tachycardia GI/Abdominal exam: Present: soft. Absent: distended, tenderness, guarding Extremities exam: Present: normal inspection, normal capillary refill. Absent: pedal edema, calf tenderness Neurological exam: Present: alert, oriented X3, CN II-XII intact. Absent: motor sensory deficit Psychiatric exam: Present: normal affect, normal mood Skin exam: Present: warm, dry, intact. Absent: cyanosis, diaphoretic Course Vital Signs 09/26/22 09/26/22 09/26/22 18:15 18:45 19:00 Temperature 98.4 F Pulse Rate 145 H 123 H 121 H Respiratory 22 18 23 Rate Blood Pressure 83/58 104/90 122/97 O2 Sat by Pulse 100 Oximetry 09/26/22 09/26/22 09/26/22 19:15 20:00 20:30 Temperature Pulse Rate 129 H 112 H 117 H Respiratory 20 16 17 Rate Blood Pressure 109/95 129/63 130/80 O2 Sat by Pulse 98 Oximetry EKG Findings - EKG Comments: EKG Findings:: EKG: Sinus tachycardia with short SC interval, rate of 124, SC interval 96, QRS duration 79, QTC 413, no ST segment elevation. Medical Decision Making - Medical Decision Making Was pt. sent in by a medical professional or institution (, PA, BISQUE FINISHER, urgent care, hospital, or [facility]...) When possible be specific @ -No Did you speak to anyone other than the patient for history (EMS, parent, family, police, friend...)? What history was obtained from this source @ -No Did you review nursing and triage notes (agree or disagree)? Why? @ -I reviewed and agree with nursing and triage notes Were old charts reviewed (outside hosp., previous admission, EMS record, old EKG, old radiological studies, urgent care reports/EKG's, [facility] records)? Report findings @ -Review previous admissions Differential Diagnosis (chest pain, altered mental status, abdominal pain women, abdominal pain men, vaginal bleeding, weakness, fever, dyspnea, syncope, headache, dizziness, GI bleed, back pain, seizure, CVA, palpatations, mental health, musculoskeletal)? @ -Differential Abdominal Pain Men: Appendicitis, cholecystitis, diverticulosis, ischemic bowel, pancreatitis, hepatitis, UTI, gastroenteritis, AAA, incarcerated hernia, bowel obstruction, constipation, inflammatory bowel, hepatitis, peptic ulcer disease, splenic infarction, perforated viscus, testicular torsion, this is not meant to be an all-inclusive list EKG interpreted by me (3pts min.). @ -As above X-rays interpreted by me (1pt min.). @ -None done CT interpreted by me (1pt min.). @ -None done U/S interpreted by me (1pt. min.). @ -None done What testing was considered but not performed or refused? (CT, X-rays, U/S, labs)? Why? @ -None What meds were considered but not given or refused? Why? @ -None Did you discuss the management of the patient with other professionals (professionals i.e. , PA, BISQUE FINISHER, lab, RT, psych nurse, social welfare administrator, chronic care nurse, teacher, law enforcement officer, case worker)? Give summary @ -Case discussed with Poornima granado for [facility] Was smoking cessation discussed for >3mins.? @ -No Was critical care preformed (if so, how long)? @ -yes Were there social determinants of health that impacted care today? How? (Homelessness, low income, unemployed, alcoholism, drug addiction, transportation, low edu. Level, literacy, decrease access to med. care, senior care, rehab)? @ -No Was there de-escalation of care discussed even if they declined (Discuss DNR or withdrawal of care, Hospice)? DNR status @ -No What co-morbidities impacted this encounter? (DM, HTN, Smoking, COPD, CAD, Cancer, CVA, ARF, Chemo, Hep., AIDS, mental health diagnosis, sleep apnea, morbid obesity)? @ -DM type I] Was patient admitted / discharged? Hospital course, mention meds given and route, prescriptions, significant lab abnormalities, going to OR and other pertinent info. @ - Patient admitted for IV insulin and IV fluids. He is ketotic and dehydrated with a lactic acidosis of 4.1. He has hyperglycemia without anali acidosis. ABG is within normal limits and CO2 is normal. It will benefit from insulin and fluids and reevaluation. Undiagnosed new problem with uncertain prognosis? @ -No Drug Therapy requiring intensive monitoring for toxicity (Heparin, Nitro, Insulin, Cardizem)? @ -No Were any procedures done? @ -No Diagnosis/symptom? @ -Dehydration, ketosis, lactic acidosis Acute, or Chronic, or Acute on Chronic? @ -[Acute Uncomplicated (without systemic symptoms) or Complicated (systemic symptoms)? @ -Complicated Side effects of treatment? @ -No Exacerbation, Progression, or Severe Exacerbation? @ -No Poses a threat to life or bodily function? How? (Chest pain, [place], [place], pneumonia, PE, COPD, DKA, ARF, appy, cholecystitis, CVA, Diverticulitis, Homicidal, Suicidal, threat to staff... and all critical care pts) @ -[Yes, left foot abnormality, volume loss, hypovolemic shock, arrhythmia. - Lab Data Result diagrams: 09/26/22 18:59 09/26/22 18:59 Lab Results 09/26/22 09/26/22 09/26/22 Range/Units 18:24 18:59 18:59 WBC 6.9 (3.8-10.6) k/uL RBC 5.23 (4.30-5.90) m/uL Hgb 16.2 D (13.0-17.5) gm/dL Hct 48.9 (39.0-53.0) % MCV 93.6 (80.0-100.0) fL MCH 31.1 (25.0-35.0) pg MCHC 33.2 (31.0-37.0) g/dL RDW 12.7 (11.5-15.5) % Plt Count 421 (150-450) k/uL MPV 8.4 Neutrophils % 71 % Lymphocytes % 21 % Monocytes % 6 % Eosinophils % 1 % Basophils % 0 % Neutrophils # 4.9 (1.3-7.7) k/uL Lymphocytes # 1.4 (1.0-4.8) k/uL Monocytes # 0.4 (0-1.0) k/uL Eosinophils # 0.0 (0-0.7) k/uL Basophils # 0.0 (0-0.2) k/uL PT 9.8 (9.0-12.0) sec INR 0.9 (<1.2) APTT 21.5 L (22.0-30.0) sec VBG pH (7.31-7.41) VBG pCO2 (37-51) mmHg VBG HCO3 (24-28) mmol/L Sodium (137-145) mmol/L Potassium (3.5-5.1) mmol/L Chloride (98-107) mmol/L Carbon Dioxide (22-30) mmol/L Anion Gap mmol/L BUN (9-20) mg/dL Creatinine (0.66-1.25) mg/dL Est GFR (CKD-EPI)AfAm (>60 ml/min/1.73 sqM) Est GFR (CKD-EPI)NonAf (>60 ml/min/1.73 sqM) Glucose (74-99) mg/dL POC Glucose (mg/dL) 329 H (70-110) mg/dL POC Glu Agency Cashier ID Willing, Any Plasma Lactic Acid Neymar (0.7-2.0) mmol/L Calcium (8.4-10.2) mg/dL Total Bilirubin (0.2-1.3) mg/dL AST (17-59) U/L ALT (4-49) U/L Alkaline Phosphatase (38-126) U/L Total Protein (6.3-8.2) g/dL Albumin (3.5-5.0) g/dL Amylase (30-110) U/L Lipase (23-300) U/L Urine Color Urine Appearance (Clear) Urine pH (5.0-8.0) Ur Specific [place] (1.001-1.035) Urine Protein (Negative) Urine Glucose (UA) (Negative) Urine Ketones (Negative) Urine Blood (Negative) Urine Nitrite (Negative) Urine Bilirubin (Negative) Urine Urobilinogen (<2.0) mg/dL Ur Leukocyte Esterase (Negative) Acetone, Qual (Negative) 09/26/22 09/26/22 09/26/22 Range/Units 18:59 18:59 18:59 WBC (3.8-10.6) k/uL RBC (4.30-5.90) m/uL Hgb (13.0-17.5) gm/dL Hct (39.0-53.0) % MCV (80.0-100.0) fL MCH (25.0-35.0) pg MCHC (31.0-37.0) g/dL RDW (11.5-15.5) % Plt Count (150-450) k/uL MPV Neutrophils % % Lymphocytes % % Monocytes % % Eosinophils % % Basophils % % Neutrophils # (1.3-7.7) k/uL Lymphocytes # (1.0-4.8) k/uL Monocytes # (0-1.0) k/uL Eosinophils # (0-0.7) k/uL Basophils # (0-0.2) k/uL PT (9.0-12.0) sec INR (<1.2) APTT (22.0-30.0) sec VBG pH (7.31-7.41) VBG pCO2 (37-51) mmHg VBG HCO3 (24-28) mmol/L Sodium 125 L (137-145) mmol/L Potassium 3.8 (3.5-5.1) mmol/L Chloride 85 L (98-107) mmol/L Carbon Dioxide 25 (22-30) mmol/L Anion Gap 15 mmol/L BUN 23 H (9-20) mg/dL Creatinine 0.82 (0.66-1.25) mg/dL Est GFR (CKD-EPI)AfAm >90 (>60 ml/min/1.73 sqM) Est GFR (CKD-EPI)NonAf >90 (>60 ml/min/1.73 sqM) Glucose 241 H (74-99) mg/dL POC Glucose (mg/dL) (70-110) mg/dL POC Glu Agency Cashier ID Plasma Lactic Acid Neymar 4.1 H* (0.7-2.0) mmol/L Calcium 9.3 (8.4-10.2) mg/dL Total Bilirubin 0.9 (0.2-1.3) mg/dL AST 24 (17-59) U/L ALT 22 (4-49) U/L Alkaline Phosphatase 192 H (38-126) U/L Total Protein 7.0 (6.3-8.2) g/dL Albumin 4.1 (3.5-5.0) g/dL Amylase 53 (30-110) U/L Lipase 34 (23-300) U/L Urine Color Light Yellow Urine Appearance Clear (Clear) Urine pH 6.0 (5.0-8.0) Ur Specific [place] 1.038 H (1.001-1.035) Urine Protein Trace H (Negative) Urine Glucose (UA) 3+ H (Negative) Urine Ketones 2+ H (Negative) Urine Blood Negative (Negative) Urine Nitrite Negative (Negative) Urine Bilirubin Negative (Negative) Urine Urobilinogen <2.0 (<2.0) mg/dL Ur Leukocyte Esterase Negative (Negative) Acetone, Qual Positive (Negative) 09/26/22 Range/Units 18:59 WBC (3.8-10.6) k/uL RBC (4.30-5.90) m/uL Hgb (13.0-17.5) gm/dL Hct (39.0-53.0) % MCV (80.0-100.0) fL MCH (25.0-35.0) pg MCHC (31.0-37.0) g/dL RDW (11.5-15.5) % Plt Count (150-450) k/uL MPV Neutrophils % % Lymphocytes % % Monocytes % % Eosinophils % % Basophils % % Neutrophils # (1.3-7.7) k/uL Lymphocytes # (1.0-4.8) k/uL Monocytes # (0-1.0) k/uL Eosinophils # (0-0.7) k/uL Basophils # (0-0.2) k/uL PT (9.0-12.0) sec INR (<1.2) APTT (22.0-30.0) sec VBG pH 7.38 (7.31-7.41) VBG pCO2 45 (37-51) mmHg VBG HCO3 26 (24-28) mmol/L Sodium (137-145) mmol/L Potassium (3.5-5.1) mmol/L Chloride (98-107) mmol/L Carbon Dioxide (22-30) mmol/L Anion Gap mmol/L BUN (9-20) mg/dL Creatinine (0.66-1.25) mg/dL Est GFR (CKD-EPI)AfAm (>60 ml/min/1.73 sqM) Est GFR (CKD-EPI)NonAf (>60 ml/min/1.73 sqM) Glucose (74-99) mg/dL POC Glucose (mg/dL) (70-110) mg/dL POC Glu Agency Cashier ID Plasma Lactic Acid Neymar (0.7-2.0) mmol/L Calcium (8.4-10.2) mg/dL Total Bilirubin (0.2-1.3) mg/dL AST (17-59) U/L ALT (4-49) U/L Alkaline Phosphatase (38-126) U/L Total Protein (6.3-8.2) g/dL Albumin (3.5-5.0) g/dL Amylase (30-110) U/L Lipase (23-300) U/L Urine Color Urine Appearance (Clear) Urine pH (5.0-8.0) Ur Specific [place] (1.001-1.035) Urine Protein (Negative) Urine Glucose (UA) (Negative) Urine Ketones (Negative) Urine Blood (Negative) Urine Nitrite (Negative) Urine Bilirubin (Negative) Urine Urobilinogen (<2.0) mg/dL Ur Leukocyte Esterase (Negative) Acetone, Qual (Negative) Critical Care Time Critical Care Time: Yes Total Critical Care Time: 35 Disposition Clinical Impression: Dehydration, Diabetic ketoacidosis, Intractable nausea and vomiting Disposition: ADMITTED IP TO THIS [facility] Condition: Stable Is patient prescribed a controlled substance at d/c from ED?: No Referrals: Michelet Aguirre MD [Primary Care Provider] - 1-2 days Time of Disposition: 21:27
[2022-09-26 19:22] LABS: VBG PH 7.38 (7.31-7.41)
[2022-09-26 19:28] LABS: Basophils % (A) 0 %; Eosinophils % (A) 1 %; HCT 48.9 % (39.0-53.0); Lymphocytes # (A) 1.4 k/uL (1.0-4.8); Lymphocytes % (A) 21 %; MCH 31.1 pg (25.0-35.0); MCHC 33.2 g/dL (31.0-37.0); MCV 93.6 fL (80.0-100.0); Mean Platelet Volume 8.4; Monocytes # (A) 0.4 k/uL (0-1.0); Monocytes % (A) 6 %; Neutrophils # (A) 4.9 k/uL (1.3-7.7); Neutrophils % (A) 71 %; Platelet Count 421 k/uL (150-450); RBC 5.23 m/uL (4.30-5.90); RDW 12.7 % (11.5-15.5); WBC 6.9 k/uL (3.8-10.6)
[2022-09-26 19:33] LABS: HGB 16.2 gm/dL (13.0-17.5)
[2022-09-26 19:35] LABS: ALT 22 U/L (4-49); AST 24 U/L (17-59); African American GFR (CKD) >90 (>60 ml/min/1.73 sqM); Albumin 4.1 g/dL (3.5-5.0); Alkaline Phosphatase 192 U/L (38-126); Amylase 53 U/L (30-110); Anion Gap 15 mmol/L; Blood Urea Nitrogen 23 mg/dL (9-20); Calcium 9.3 mg/dL (8.4-10.2); Carbon Dioxide 25 mmol/L (22-30); Chloride 85 mmol/L (98-107); Glucose 241 mg/dL (74-99); Lipase 34 U/L (23-300); Non-African American GFR(CKD) >90 (>60 ml/min/1.73 sqM); Potassium 3.8 mmol/L (3.5-5.1); Sodium 125 mmol/L (137-145); Total Bilirubin 0.9 mg/dL (0.2-1.3)
[2022-09-26] MEDS ORDERED: SODIUM CHLORIDE 0.9% 1,000 ML IV ONE (19:35)
[2022-09-26 20:10] LABS: INR 0.9 (<1.2); Prothrombin Time 9.8 sec (9.0-12.0)
[2022-09-26 20:16] LABS: Partial Thromboplastin Time 21.5 sec (22.0-30.0)
--- NOTE | 2022-09-26 20:40 | CT ---
EXAMINATION TYPE: CT abdomen pelvis w con CT DLP: 522.1 mGycm, Automated exposure control for dose reduction was used. DATE OF EXAM: 09/26/2022 8:18 PM COMPARISON: Liver ultrasound 07/19/2022 CLINICAL INDICATION:Male, 32 years old with history of ab pain; abdominal pain TECHNIQUE: Axial CT of the abdomen and pelvis. Sagittal and coronal reformats were created on a [employer] workstation. Contrast used:100 mL of Isovue 300 with IV Contrast, Oral contrast used: without Oral Contrast FINDINGS: LOWER CHEST: Unremarkable ABDOMEN LIVER: Focal fatty infiltration along the ligamentum teres. GALLBLADDER AND BILE DUCTS: Unremarkable. PANCREAS: Unremarkable. SPLEEN: Unremarkable. ADRENAL GLANDS: Unremarkable. KIDNEYS AND URETERS: No evidence of hydronephrosis or renal calculus. The ureters are unremarkable. PELVIS BLADDER: Unremarkable REPRODUCTIVE: Unremarkable. ABDOMEN & PELVIS STOMACH AND BOWEL: Mild circumferential wall thickening of the distal esophagus. Stomach and small kelsie wel are normal in appearance. No evidence of bowel obstruction. Appendix is not well seen, however no findings the right lower quadrant to suggest acute inflammation. PERITONEUM: No evidence of pneumoperitoneum or free fluid. VASCULATURE: No evidence of aortic aneurysm. MUSCULOSKELETAL: No acute osseous abnormalities. Partial fusion of the left L5 transverse process and S1. LYMPH NODES: No gross evidence for lymphadenopathy. SOFT TISSUE/ABDOMINAL WALL: Subcutaneous fat stranding along the lower anterior abdominal wall with p unctate calcifications, likely sequelae of medication injections. IMPRESSION: 1. Distal esophageal wall thickening which can be seen with esophagitis. Otherwise, no acute intra-a bdominal or intrapelvic process. 2. Focal hepatic fatty infiltration.
[2022-09-26 21:07] LABS: Appearance,Urine Clear (Clear); Bilirubin,Urine Negative (Negative); Blood,Urine Negative (Negative); Color,Urine Light Yellow; Glucose,Urine (UA) 3+ (Negative); Leukocyte Esterase,Urine Negative (Negative); Nitrite,Urine Negative (Negative); Protein,Urine Trace (Negative); Specific Gravity,Urine 1.038 (1.001-1.035); Urobilinogen,Urine <2.0 mg/dL (<2.0)
[2022-09-26 21:15] LABS: Ketones,Urine 2+ (Negative)
[2022-09-26] MEDS ORDERED: INSULIN REGULAR 100 UNIT in SODIUM CHLORIDE 0.9% 100 ML IV SCH (21:30)
[2022-09-26 21:42] LABS: Glucose,Whole Blood 41 mg/dL (70-110)
[2022-09-26 21:42] LABS: Glucose,Whole Blood 42 mg/dL (70-110)
[2022-09-26] MEDS: D5-0.45% NACL WITH KCL 20MEQ/L 1,000 ML IV SCH (22:06)
[2022-09-26 22:13] LABS: Glucose,Whole Blood 117 mg/dL (70-110)
[2022-09-26 22:58] LABS: Glucose,Whole Blood 133 mg/dL (70-110)
[2022-09-26 23:29] LABS: Glucose,Whole Blood 166 mg/dL (70-110)
[2022-09-27 01:00] LABS: African American GFR (CKD) >90 (>60 ml/min/1.73 sqM); Anion Gap 7 mmol/L; Blood Urea Nitrogen 19 mg/dL (9-20); Carbon Dioxide 28 mmol/L (22-30); Chloride 92 mmol/L (98-107); Glucose 164 mg/dL (74-99); Non-African American GFR(CKD) >90 (>60 ml/min/1.73 sqM); Potassium 3.8 mmol/L (3.5-5.1); Sodium 127 mmol/L (137-145)
[2022-09-27] MEDS: SODIUM CHLORIDE 0.9% 1,000 ML IV SCH ×2 (01:59→08:12)
[2022-09-27] MEDS ORDERED: Phosphorus Replacement Protoco 1 EACH MISC MISCELLANE PRN (02:30)
[2022-09-27] MEDS ORDERED: POTAS-SOD-PHOS 278-164-250 MG 1 EACH PACKET PO ONE (02:30)
[2022-09-27] MEDS: ACETAMINOPHEN TAB 325 MG TAB PO PRN ×2 (02:52→12:16)
[2022-09-27 04:46] LABS: African American GFR (CKD) >90 (>60 ml/min/1.73 sqM); Anion Gap 7 mmol/L; Blood Urea Nitrogen 15 mg/dL (9-20); Carbon Dioxide 25 mmol/L (22-30); Chloride 92 mmol/L (98-107); Glucose 409 mg/dL (74-99); Non-African American GFR(CKD) >90 (>60 ml/min/1.73 sqM); Phosphorus 2.3 mg/dL (2.5-4.5); Sodium 124 mmol/L (137-145)
[2022-09-27] MEDS: D5-0.45% NACL WITH KCL 20MEQ/L 1,000 ML IV SCH (05:04)
[2022-09-27] MEDS ORDERED: INSULIN DETEMIR (LEVEMIR) 100 UNIT/ML SYR SQ SCH (07:00)
[2022-09-27 08:21] LABS: African American GFR (CKD) >90 (>60 ml/min/1.73 sqM); Anion Gap 13 mmol/L; Blood Urea Nitrogen 16 mg/dL (9-20); Calcium 8.1 mg/dL (8.4-10.2); Carbon Dioxide 21 mmol/L (22-30); Chloride 92 mmol/L (98-107); Glucose 481 mg/dL (74-99); Non-African American GFR(CKD) >90 (>60 ml/min/1.73 sqM); Phosphorus 2.2 mg/dL (2.5-4.5); Potassium 5.2 mmol/L (3.5-5.1); Sodium 126 mmol/L (137-145)
[2022-09-27 08:37] LABS: Glucose,Whole Blood 431 mg/dL (70-110)
[2022-09-27 09:15] VITALS: RESP 18
[2022-09-27] MEDS ORDERED: PANTOPRAZOLE 40 MG TABLET PO SCH (09:15)
[2022-09-27] MEDS: INSULIN ASPART (NovoLOG) 100 UNIT/ML VIAL SQ SCH ×4 (09:16→12:16)
[2022-09-27 12:13] LABS: Glucose,Whole Blood 218 mg/dL (70-110)
[2022-09-27 12:18] VITALS: BP 119/76; PULSE 90; TEMP 98.1
[2022-09-27 14:10] VITALS: BMI 18.6
[2022-09-27] MEDS ORDERED: HEPARIN SODIUM,PORCINE/PF 5,000 UNIT/0.5 ML SYRINGE SQ SCH (16:00)
--- NOTE | 2022-09-27 23:43 | P.HPIM ---
History of Present Illness H&P Date: 09/27/22 Chief Complaint: Nausea and vomiting and abdominal pain Patient is a 32-year-old male with a known history of diabetes type 1, hyperlipidemia, hypertension, asthma, osteoarthritis, anxiety/depression and bipolar disorder and currently everyday smoker and occasional marijuana use presents to ER with complaints of abdominal pain and lightheadedness. Patient states that he felt like similar symptoms with prior DKA. Patient is currently on subcu insulin and does not currently have a glucometer and does not know how his blood sugar started. Does have nausea. And episodes of vomiting. Denies any dysuria or hematuria. No chest pain or shortness of breath. No cough or sputum production. No fever no chills. Patient was tachycardic with heart rate went up to [address] of the abdomen pelvis showed distal esophageal wall thickening which can be seen with esophagitis. Otherwise no acute intra-abdominal intrapelvic process. Focal hepatic fatty infiltration. Laboratory data showed WBC 6.9 hemoglobin 16.2 and platelets 421 Sodium 125 potassium 3.8 chloride 85 bicarb is 25 BUN 23 and creatinine 0.82 anion gap 15 and lactic acid 4.1 and blood sugar 329 on admission Urinalysis is negative for infection. Alk phos of 192 AST ALT within normal limits and bilirubin level is 0.9. Lipase level is 34. Review of Systems Constitutional: Patient denies any fever or chills . Does have generalized weakness. Abdomen: Complains of nausea vomiting abdominal pain Cardiovascular: Patient denies any chest pain or short of breath no palpitations. Respiratory: patient denied any cough . no sputum production. No shortness of breath Neurologic: Patient denied any numbness or tingling headache. Musculoskeletal: Patient denies any complaints of joint swelling or deformity. Skin: Negative Psychiatric: Negative Endocrine: No heat or cold intolerance. No recent weight gain. Genitourinary: No dysuria or hematuria. All other 14 point ROS negative except the above Past Medical History Past Medical History: Asthma, Diabetes Mellitus, Hyperlipidemia, Hypertension, Osteoarthritis (OA) Additional Past Medical History / Comment(s): IDDM type I, diabetic gastroparesis, neuropathy bilateral hands/fingers, migraines, arthrtitis fingers/knees, past R hand and L femur fractures. Previous DKA History of Any Multi-Drug Resistant Organisms: MRSA Date of last positivie culture/infection: 04/26/2014 MDRO Source:: Face Past Surgical History: Ear Surgery, Orthopedic Surgery Additional Past Surgical History / Comment(s): R hand surgery d/t fracture- pinned and pins since removed, L leg femur fracture with pin that eventually was removed, bilateral myringotomy with tubes/ear drum repairs.; Left pinky removal Past Anesthesia/Blood Transfusion Reactions: No Reported Reaction Past Psychological History: Anxiety, Bipolar, Depression Additional Psychological History / Comment(s): Pt states he lives with spouse. Smoking Status: Current every day smoker Past Alcohol Use History: None Reported Additional Past Alcohol Use History / Comment(s): Pt states he started smoking at 5 years old. Past Drug Use History: None Reported Additional Drug Use History / Comment(s): Occasional marijuana use. - Past Family History Father Family Medical History: Hyperlipidemia, Hypertension, Myocardial Infarction ([place]) Mother Family Medical History: COPD Additional Family Medical History / Comment(s): home O2, Brother(s) Family Medical History: No Reported History Medications and Allergies Home Medications Medication Instructions Recorded Confirmed Type Insulin Aspart [NovoLOG Flexpen] 10 units SQ TID-W/MEALS 01/31/22 09/26/22 History Insulin Detemir [Levemir Flextouch 30 units SQ DAILY 09/26/22 09/26/22 History Pen] Allergies Allergy/AdvReac Type Severity Reaction Status Date / Time latex Allergy Rash/Hives Verified 09/26/22 19:49 Physical Exam Vitals: Vital Signs Temp Pulse Pulse Resp BP BP Pulse Ox 09/27/22 08:00 98.4 F 92 18 121/81 98 09/27/22 03:03 98.5 F 101 H 16 145/85 97 09/26/22 23:36 98.3 F 106 H 16 136/78 99 09/26/22 23:00 107 H 18 116/71 98 09/26/22 22:45 144/80 09/26/22 22:30 122/81 09/26/22 22:00 109 H 18 136/90 98 09/26/22 21:00 107 H 17 120/79 98 09/26/22 20:30 117 H 17 130/80 98 09/26/22 20:00 112 H 16 129/63 09/26/22 19:15 129 H 20 109/95 09/26/22 19:00 121 H 23 122/97 09/26/22 18:45 123 H 18 104/90 09/26/22 18:15 98.4 F 145 H 22 83/58 100 Intake and Output 09/26/22 09/27/22 09/27/22 22:59 06:59 14:59 Intake Total 118 Output Total 500 Balance -500 118 Intake: Oral 118 Output: Urine 500 Other: Weight 58.967 kg 58.967 kg PHYSICAL EXAMINATION: Patient is lying in the bed comfortably, no acute distress, awake alert and oriented.. Weak and lethargic. HEENT: Normocephalic. Neck is supple. Pupils reactive. Nostrils clear. Oral cavity is moist. Neck reveals no JVD, carotid bruits, or thyromegaly. CHEST EXAMINATION: Trachea is central. Symmetrical expansion. Lung burrell clear to auscultation and percussion. CARDIAC: Normal S1, S2 with no gallops. No murmurs ABDOMEN: Soft. Bowel sounds present. Nontender. No organomegaly. No abdominal bruits. Extremities: reveal no edema. No clubbing or cyanosis Neurologically awake, alert, oriented x3 with well-coordinated movements. No focal deficits noted Skin: No rash or skin lesions. Psychiatric: Coperative. Nonsuicidal, anxious. Musculoskeletal: No joint swelling or deformity. Normal range of motion. Results CBC & Chem 7: 09/26/22 18:59 09/27/22 07:12 Labs: Abnormal Lab Results - Last 24 Hours (Table) 09/26/22 09/26/22 09/26/22 Range/Units 18:24 18:59 18:59 APTT 21.5 L (22.0-30.0) sec Sodium (137-145) mmol/L Potassium (3.5-5.1) mmol/L Chloride (98-107) mmol/L Carbon Dioxide (22-30) mmol/L BUN (9-20) mg/dL Creatinine (0.66-1.25) mg/dL Glucose (74-99) mg/dL POC Glucose (mg/dL) 329 H (70-110) mg/dL Plasma Lactic Acid Neymar (0.7-2.0) mmol/L Calcium (8.4-10.2) mg/dL Phosphorus (2.5-4.5) mg/dL Alkaline Phosphatase (38-126) U/L Ur Specific [place] 1.038 H (1.001-1.035) Urine Protein Trace H (Negative) Urine Glucose (UA) 3+ H (Negative) Urine Ketones 2+ H (Negative) 09/26/22 09/26/22 09/26/22 Range/Units 18:59 18:59 21:39 APTT (22.0-30.0) sec Sodium 125 L (137-145) mmol/L Potassium (3.5-5.1) mmol/L Chloride 85 L (98-107) mmol/L Carbon Dioxide (22-30) mmol/L BUN 23 H (9-20) mg/dL Creatinine (0.66-1.25) mg/dL Glucose 241 H (74-99) mg/dL POC Glucose (mg/dL) 41 L (70-110) mg/dL Plasma Lactic Acid Neymar 4.1 H* (0.7-2.0) mmol/L Calcium (8.4-10.2) mg/dL Phosphorus (2.5-4.5) mg/dL Alkaline Phosphatase 192 H (38-126) U/L Ur Specific [place] (1.001-1.035) Urine Protein (Negative) Urine Glucose (UA) (Negative) Urine Ketones (Negative) 09/26/22 09/26/22 09/26/22 Range/Units 21:40 22:12 22:57 APTT (22.0-30.0) sec Sodium (137-145) mmol/L Potassium (3.5-5.1) mmol/L Chloride (98-107) mmol/L Carbon Dioxide (22-30) mmol/L BUN (9-20) mg/dL Creatinine (0.66-1.25) mg/dL Glucose (74-99) mg/dL POC Glucose (mg/dL) 42 L 117 H 133 H (70-110) mg/dL Plasma Lactic Acid Neymar (0.7-2.0) mmol/L Calcium (8.4-10.2) mg/dL Phosphorus (2.5-4.5) mg/dL Alkaline Phosphatase (38-126) U/L Ur Specific [place] (1.001-1.035) Urine Protein (Negative) Urine Glucose (UA) (Negative) Urine Ketones (Negative) 09/26/22 09/26/22 09/26/22 Range/Units 23:27 23:47 23:47 APTT (22.0-30.0) sec Sodium 127 L (137-145) mmol/L Potassium (3.5-5.1) mmol/L Chloride 92 L (98-107) mmol/L Carbon Dioxide (22-30) mmol/L BUN (9-20) mg/dL Creatinine 0.55 L (0.66-1.25) mg/dL Glucose 164 H (74-99) mg/dL POC Glucose (mg/dL) 166 H (70-110) mg/dL Plasma Lactic Acid Neymar (0.7-2.0) mmol/L Calcium (8.4-10.2) mg/dL Phosphorus 2.2 L (2.5-4.5) mg/dL Alkaline Phosphatase (38-126) U/L Ur Specific [place] (1.001-1.035) Urine Protein (Negative) Urine Glucose (UA) (Negative) Urine Ketones (Negative) 09/27/22 09/27/22 09/27/22 Range/Units 04:10 07:12 08:25 APTT (22.0-30.0) sec Sodium 124 L 126 L (137-145) mmol/L Potassium 5.2 H (3.5-5.1) mmol/L Chloride 92 L 92 L (98-107) mmol/L Carbon Dioxide 21 L (22-30) mmol/L BUN (9-20) mg/dL Creatinine 0.53 L 0.59 L (0.66-1.25) mg/dL Glucose 409 H 481 H (74-99) mg/dL POC Glucose (mg/dL) 431 H (70-110) mg/dL Plasma Lactic Acid [place] (0.7-2.0) mmol/L Calcium 8.1 L (8.4-10.2) mg/dL Phosphorus 2.3 L 2.2 L (2.5-4.5) mg/dL Alkaline Phosphatase (38-126) U/L Ur Specific [place] (1.001-1.035) Urine Protein (Negative) Urine Glucose (UA) (Negative) Urine Ketones (Negative) Thrombosis Risk Factor Assmnt - DVT/VTE Prophylaxis DVT/VTE Prophylaxis: Pharmacologic Prophylaxis ordered - Choose All That Apply Any of the Below Risk Factors Present?: No Other Risk Factors: No Other congenital or acquired thrombophilia - If yes, enter type in comment: No Thrombosis Risk Factor Assessment Level: Very Low Risk Assessment and Plan Assessment: Intractable nausea and vomiting with possible acute gastritis Hyperglycemia with uncontrolled diabetes type 2 and mild DKA Hypovolemic hyponatremia Dehydration volume depletion Hypophosphatemia History of prior DKA Hypertension Hyperlipidemia Osteoarthritis Currently everyday smoker and occasional marijuana use Anxiety/depression bipolar disorder DVT prophylaxis heparin subcu Plan: Patient will be continued on IV hydration and symptomatic management for nausea and vomiting. Was continued on insulin drip and will be transition to subcu insulin. We will initiate oral diet once symptomatically improved. Continue with PPI and follow-up closely. Replace electrolytes and phosphorus. Monitor BMP every 4 hourly. Social work consulted for glucometer and other insulin supplies. Time with Patient: Greater than 30
== END 2022-09-27 16:00 | disposition left against medical advice (07) | DRG 241 ==
LOC: EC 18:14 → 3SCARD 21:21
PROVIDERS: ADMIT Hospitalist; ATTEND Hospitalist
DX: K29.70 Gastritis, unspecified, without bleeding (principal); E10.10 Type 1 diabetes mellitus with ketoacidosis without coma; E10.43 Type 1 diabetes mellitus with diabetic autonomic (poly)neuropathy; M19.90 Unspecified osteoarthritis, unspecified site; J45.909 Unspecified asthma, uncomplicated; Z53.29 Procedure and treatment not carried out because of patient's decision for other reasons; E78.5 Hyperlipidemia, unspecified; F31.9 Bipolar disorder, unspecified; F17.210 Nicotine dependence, cigarettes, uncomplicated; E86.1 Hypovolemia; E86.0 Dehydration; E83.39 Other disorders of phosphorus metabolism; K31.84 Gastroparesis; E10.42 Type 1 diabetes mellitus with diabetic polyneuropathy; Z86.14 Personal history of Methicillin resistant Staphylococcus aureus infection; Z79.4 Long term (current) use of insulin; Z91.040 Latex allergy status
CPT/HCPCS: 36415; 74177; 80048; 80051; 80053; 81003; 82009; 82150; 82565; 82803; 82947; 83605; 83690; 84100; 84520; 85025; 85610; 85730; 93005; 96360; 96361; 99291

== ENCOUNTER 2022-12-13 14:20 | Inpatient (IN) | payer OTHER ==
[2022-12-13] MEDS ORDERED: SODIUM CHLORIDE 0.9% 1,000 ML IV ONE ×2 (15:00)
[2022-12-13 15:26] LABS: Glucose,Whole Blood >600 mg/dL (70-110)
[2022-12-13] MEDS ORDERED: CALCIUM CHLORIDE 100 MG/ML 10 ML SYRINGE IVP STA (15:32)
[2022-12-13 16:26] LABS: ALT 62 U/L (4-49); AST 30 U/L (17-59); African American GFR (CKD) 37 (>60 ml/min/1.73 sqM); Albumin 4.6 g/dL (3.5-5.0); Alcohol <10 mg/dL; Alkaline Phosphatase 249 U/L (38-126); Blood Urea Nitrogen 62 mg/dL (9-20); Calcium 8.6 mg/dL (8.4-10.2); Chloride 75 mmol/L (98-107); Non-African American GFR(CKD) 32 (>60 ml/min/1.73 sqM); Sodium 122 mmol/L (137-145); Total Bilirubin 0.5 mg/dL (0.2-1.3); Total Protein 7.1 g/dL (6.3-8.2)
[2022-12-13 16:27] LABS: HGB 15.2 gm/dL (13.0-17.5); Hypochromasia Marked; MCH 30.7 pg (25.0-35.0); MCHC 26.3 g/dL (31.0-37.0); Macrocytosis Marked; Mean Platelet Volume 9.9; Platelet Count 516 k/uL (150-450); RBC 4.94 m/uL (4.30-5.90); RDW 14.1 % (11.5-15.5); WBC 26.2 k/uL (3.8-10.6)
[2022-12-13 16:30] LABS: HCT 57.8 % (39.0-53.0)
[2022-12-13 16:41] LABS: VBG PH 7.13 (7.31-7.41)
[2022-12-13] MEDS ORDERED: INSULIN REGULAR 100 UNIT/ML VIAL (IV) IV ONE (16:43)
[2022-12-13] MEDS ORDERED: SODIUM ZIRCONIUM CYCLOSILICATE 10 GM PACKET PO ONE (16:44)
[2022-12-13] MEDS ORDERED: ALBUTEROL NEBULIZED 2.5 MG/3 ML INHALATION STA (16:45)
--- NOTE | 2022-12-13 16:47 | ED ---
General Adult HPI - General Chief complaint: Recheck/Abnormal Lab/Rx Stated complaint: hyperglycemia Time Seen by Provider: 12/13/22 15:15 Source: patient, family, EMS Mode of arrival: EMS Limitations: no limitations - History of Present Illness Initial comments: 32-year-old male presents to the emergency room with altered level of consciousness. His is at bedside and helps provide history. States that she is from him but they still live together. Patient was found unresponsive at home. He does have a history of diabetes. From what she understands he has been taking his insulin. Unable to tell me his last known well. The patient cannot provide any history due to his encephalopathic state - Related Data Home Medications Medication Instructions Recorded Confirmed Insulin Aspart [NovoLOG Flexpen] 10 units SQ TID-W/MEALS 01/31/22 12/13/22 Insulin Detemir [Levemir Flextouch 36 units SQ DAILY 09/26/22 12/13/22 Pen] Previous Rx's Medication Instructions Recorded carvediloL [Coreg] 6.25 mg PO BID-W/MEALS #60 tab 12/16/22 Allergies Allergy/AdvReac Type Severity Reaction Status Date / Time latex Allergy Rash/Hives Verified 12/13/22 17:52 Review of Systems ROS Statement: Those systems with pertinent positive or pertinent negative responses have been documented in the HPI. ROS Other: All systems not noted in ROS Statement are negative. Past Medical History Past Medical History: Asthma, Diabetes Mellitus, Hyperlipidemia, Hypertension, Osteoarthritis (OA) Additional Past Medical History / Comment(s): IDDM type I, diabetic gastroparesis, neuropathy bilateral hands/fingers, migraines, arthrtitis fingers/knees, past R hand and L femur fractures. Previous DKA History of Any Multi-Drug Resistant Organisms: MRSA Date of last positivie culture/infection: 04/26/2014 MDRO Source:: Face Past Surgical History: Ear Surgery, Orthopedic Surgery Additional Past Surgical History / Comment(s): R hand surgery d/t fracture- pinned and pins since removed, L leg femur fracture with pin that eventually was removed, bilateral myringotomy with tubes/ear drum repairs.; Left pinky removal Past Anesthesia/Blood Transfusion Reactions: No Reported Reaction Past Psychological History: Anxiety, Bipolar, Depression Smoking Status: Current every day smoker Past Alcohol Use History: None Reported Past Drug Use History: Marijuana - Past Family History Father Family Medical History: Hyperlipidemia, Hypertension, Myocardial Infarction ([place]) Mother Family Medical History: COPD Additional Family Medical History / Comment(s): home O2, Brother(s) Family Medical History: No Reported History General Exam Limitations: altered mental status General appearance: obtunded Head exam: Present: atraumatic, normocephalic, normal inspection ENT exam: Present: mucous membranes dry, other (ketotic breath) Respiratory exam: Present: normal lung sounds bilaterally, other (tachypnia) Cardiovascular Exam: Present: tachycardia GI/Abdominal exam: Present: soft, normal bowel sounds. Absent: distended, tenderness, guarding, rebound, rigid Neurological exam: Present: altered Course Vital Signs 12/13/22 12/13/22 12/13/22 15:11 16:37 18:04 Pulse Rate 117 H 129 H 120 H Respiratory 18 24 18 Rate Blood Pressure 85/42 129/89 O2 Sat by Pulse 99 100 95 Oximetry 12/13/22 12/13/22 12/13/22 18:37 19:04 19:08 Pulse Rate 120 H 126 H 126 H Respiratory 22 Rate Blood Pressure 135/89 O2 Sat by Pulse 98 Oximetry - Reevaluation(s) Reevaluation #1: Spoke with Dr. Barkley - patient will go to ICU 12/13/22 17:23 Procedures - ABG Interpretation Ph: 7.18 PCO2: 26 PO2: 118 Bicarbonate: 9.8 Interpretation: metabolic acidosis Medical Decision Making - Medical Decision Making Was pt. sent in by a medical professional or institution (, PA, UTILITY MAINTENANCE WORKER, urgent care, hospital, or [facility]...) When possible be specific @ -No Did you speak to anyone other than the patient for history (EMS, parent, family, police, friend...)? What history was obtained from this source @ -Spoke with EMS and the patient's Did you review nursing and triage notes (agree or disagree)? Why? @ -I reviewed and agree with nursing and triage notes Were old charts reviewed (outside hosp., previous admission, EMS record, old EKG, old radiological studies, urgent care reports/EKG's, [facility] records)? Report findings @ -Old charts were reviewed. Patient has been hospitalized several times for DKA Differential Diagnosis (chest pain, altered mental status, abdominal pain women, abdominal pain men, vaginal bleeding, weakness, fever, dyspnea, syncope, headache, dizziness, GI bleed, back pain, seizure, CVA, palpatations, mental health, musculoskeletal)? @ -Differential Altered Mental Status: Hypoglycemia, DKA, hypercapnia, ETOH, overdose, CO poisoning, trauma, myxedema coma, HTN encephalopathy, infection, encephalitis, psychosis, intercranial hemorrhage, hepatic encephalopathy, meningitis, CVA, this is not meant to be an all-inclusive list EKG interpreted by me (3pts min.). @ -Yes and demonstrates sinus tachycardia with a rate of 110. NC interval 116. QRS 97. QTC of 400. Peak T waves in V2 through V5 X-rays interpreted by me (1pt min.). @ -None done CT interpreted by me (1pt min.). @ -None done U/S interpreted by me (1pt. min.). @ -None done What testing was considered but not performed or refused? (CT, X-rays, U/S, labs)? Why? @ -None What meds were considered but not given or refused? Why? @ -None Did you discuss the management of the patient with other professionals (professionals i.e. , PA, UTILITY MAINTENANCE WORKER, lab, RT, psych nurse, social science manager, hi low truck driver, teacher, gunnery/ordnance officer, family service caseworker)? Give summary @ -Spoke with Dr. Moe and Dr. Blair Was smoking cessation discussed for >3mins.? @ -No Was critical care preformed (if so, how long)? @ -Yes, 40 minutes Were there social determinants of health that impacted care today? How? (Homelessness, low income, unemployed, alcoholism, drug addiction, transportation, low edu. Level, literacy, decrease access to med. care, residential, rehab)? @ -No Was there de-escalation of care discussed even if they declined (Discuss DNR or withdrawal of care, Hospice)? DNR status @ -No What co-morbidities impacted this encounter? (DM, HTN, Smoking, COPD, CAD, Cancer, CVA, ARF, Chemo, Hep., AIDS, mental health diagnosis, sleep apnea, morbid obesity)? @ -DM1 Was patient admitted / discharged? Hospital course, mention meds given and route, prescriptions, significant lab abnormalities, going to OR and other pertinent info. @ -Upon arrival patient was decontaminated as there was concern for bedbugs. Patient smells of acetone. He is placed into room 22. He is placed on continuous pulse ox and cardiac monitoring. 12-lead EKG is completed which demonstrates peaked T waves. As there is concern for DKA and hyperkalemia the patient is given 1 g of calcium chloride. 2 L of normal saline was instilled and laboratory studies were conducted. They do demonstrate a markedly elevated white count of 26.2. Potassium 7.9. Sodium 122. Creatinine 2.5. Glucose is 1519. He is acetone positive. He is given 10 units of insulin, 15 mg of albuterol, a dose of lokelma. He is started on insulin drip. I spoke with Dr. Moe who will admit the patient. Dr. Blair does present to the emergency department and evaluates himself as he must go to the ICU. Patient remained in critical condition with a guarded prognosis Undiagnosed new problem with uncertain prognosis? @ -yes Drug Therapy requiring intensive monitoring for toxicity (Heparin, Nitro, Insulin, Cardizem)? @ -insulin gtt Were any procedures done? @ -No Diagnosis/symptom? @ -Acute encephalopathy, acute DKA, acute hyperkalemia Acute, or Chronic, or Acute on Chronic? @ -Acute Uncomplicated (without systemic symptoms) or Complicated (systemic symptoms)? @ -complicated Side effects of treatment? @ -hyperglycemia, cerebral edema Exacerbation, Progression, or Severe Exacerbation? @ -No Poses a threat to life or bodily function? How? (Chest pain, [place], [place], pneumonia, PE, COPD, DKA, ARF, appy, cholecystitis, CVA, Diverticulitis, Homicidal, Suicidal, threat to staff... and all critical care pts) @ -yes patient has significantly elevated potassium with EKG changes - Lab Data Result diagrams: 12/16/22 04:05 12/16/22 04:05 Lab Results 12/13/22 12/13/22 12/13/22 Range/Units 15:19 15:59 15:59 WBC 26.2 H (3.8-10.6) k/uL RBC 4.94 (4.30-5.90) m/uL Hgb 15.2 (13.0-17.5) gm/dL Hct 57.8 H* (39.0-53.0) % MCV 117.0 H (80.0-100.0) fL MCH 30.7 (25.0-35.0) pg MCHC 26.3 L (31.0-37.0) g/dL RDW 14.1 (11.5-15.5) % Plt Count 516 H (150-450) k/uL MPV 9.9 Neutrophils % Not Reportable Neutrophils % (Manual) 83 % Band Neuts % (Manual) 2 % Lymphocytes % Not Reportable Lymphocytes % (Manual) 6 % Monocytes % Not Reportable Monocytes % (Manual) 5 % Eosinophils % Not Reportable Basophils % Not Reportable Myelocytes % 4 % Neutrophils # Not Reportable Neutrophils # (Manual) 22.20 H (1.3-7.7) k/uL Lymphocytes # Not Reportable Lymphocytes # (Manual) 1.57 (1.0-4.8) k/uL Monocytes # Not Reportable Monocytes # (Manual) 1.31 H (0-1.0) k/uL Eosinophils # Not Reportable Basophils # Not Reportable Myelocytes # (Manual) 1.05 H (0) k/uL Nucleated RBCs 0 (0-0) /100 WBC Manual Slide Review Performed Large Platelets Present Polychromasia Present Hypochromasia Marked Macrocytosis Marked A VBG pH (7.31-7.41) VBG pCO2 (37-51) mmHg VBG HCO3 (24-28) mmol/L Sodium 122 L (137-145) mmol/L Potassium 7.9 H* (3.5-5.1) mmol/L Chloride 75 L (98-107) mmol/L Carbon Dioxide <5 L* (22-30) mmol/L Anion Gap mmol/L BUN 62 H (9-20) mg/dL Creatinine 2.56 H (0.66-1.25) mg/dL Est GFR (CKD-EPI)AfAm 37 (>60 ml/min/1.73 sqM) Est GFR (CKD-EPI)NonAf 32 (>60 ml/min/1.73 sqM) Glucose 1519 H* (74-99) mg/dL POC Glucose (mg/dL) >600 H (70-110) mg/dL POC Glu [employer] ID Ghulam Becca Lactic Ac Sepsis Rflx Plasma Lactic Acid Neymar (0.7-2.0) mmol/L Calcium 8.6 (8.4-10.2) mg/dL Total Bilirubin 0.5 (0.2-1.3) mg/dL AST 30 (17-59) U/L ALT 62 H (4-49) U/L Alkaline Phosphatase 249 H (38-126) U/L Total Protein 7.1 (6.3-8.2) g/dL Albumin 4.6 (3.5-5.0) g/dL Serum Alcohol <10 mg/dL Acetone, Qual Positive (Negative) 12/13/22 12/13/22 12/13/22 Range/Units 15:59 16:21 16:43 WBC (3.8-10.6) k/uL RBC (4.30-5.90) m/uL Hgb (13.0-17.5) gm/dL Hct (39.0-53.0) % MCV (80.0-100.0) fL MCH (25.0-35.0) pg MCHC (31.0-37.0) g/dL RDW (11.5-15.5) % Plt Count (150-450) k/uL MPV Neutrophils % Neutrophils % (Manual) % Band Neuts % (Manual) % Lymphocytes % Lymphocytes % (Manual) % Monocytes % Monocytes % (Manual) % Eosinophils % Basophils % Myelocytes % % Neutrophils # Neutrophils # (Manual) (1.3-7.7) k/uL Lymphocytes # Lymphocytes # (Manual) (1.0-4.8) k/uL Monocytes # Monocytes # (Manual) (0-1.0) k/uL Eosinophils # Basophils # Myelocytes # (Manual) (0) k/uL Nucleated RBCs (0-0) /100 WBC Manual Slide Review Large Platelets Polychromasia Hypochromasia Macrocytosis VBG pH 7.13 L* (7.31-7.41) VBG pCO2 18 L* (37-51) mmHg VBG HCO3 6 L* (24-28) mmol/L Sodium (137-145) mmol/L Potassium (3.5-5.1) mmol/L Chloride (98-107) mmol/L Carbon Dioxide (22-30) mmol/L Anion Gap mmol/L BUN (9-20) mg/dL Creatinine (0.66-1.25) mg/dL Est GFR (CKD-EPI)AfAm (>60 ml/min/1.73 sqM) Est GFR (CKD-EPI)NonAf (>60 ml/min/1.73 sqM) Glucose (74-99) mg/dL POC Glucose (mg/dL) (70-110) mg/dL POC Glu [employer] ID Lactic Ac Sepsis Rflx Y Plasma Lactic Acid Neymar 8.4 H* (0.7-2.0) mmol/L Calcium (8.4-10.2) mg/dL Total Bilirubin (0.2-1.3) mg/dL AST (17-59) U/L ALT (4-49) U/L Alkaline Phosphatase (38-126) U/L Total Protein (6.3-8.2) g/dL Albumin (3.5-5.0) g/dL Serum Alcohol mg/dL Acetone, Qual (Negative) 12/13/22 Range/Units 17:08 WBC (3.8-10.6) k/uL RBC (4.30-5.90) m/uL Hgb (13.0-17.5) gm/dL Hct (39.0-53.0) % MCV (80.0-100.0) fL MCH (25.0-35.0) pg MCHC (31.0-37.0) g/dL RDW (11.5-15.5) % Plt Count (150-450) k/uL MPV Neutrophils % Neutrophils % (Manual) % Band Neuts % (Manual) % Lymphocytes % Lymphocytes % (Manual) % Monocytes % Monocytes % (Manual) % Eosinophils % Basophils % Myelocytes % % Neutrophils # Neutrophils # (Manual) (1.3-7.7) k/uL Lymphocytes # Lymphocytes # (Manual) (1.0-4.8) k/uL Monocytes # Monocytes # (Manual) (0-1.0) k/uL Eosinophils # Basophils # Myelocytes # (Manual) (0) k/uL Nucleated RBCs (0-0) /100 WBC Manual Slide Review Large Platelets Polychromasia Hypochromasia Macrocytosis VBG pH (7.31-7.41) VBG pCO2 (37-51) mmHg VBG HCO3 (24-28) mmol/L Sodium (137-145) mmol/L Potassium (3.5-5.1) mmol/L Chloride (98-107) mmol/L Carbon Dioxide (22-30) mmol/L Anion Gap mmol/L BUN (9-20) mg/dL Creatinine (0.66-1.25) mg/dL Est GFR (CKD-EPI)AfAm (>60 ml/min/1.73 sqM) Est GFR (CKD-EPI)NonAf (>60 ml/min/1.73 sqM) Glucose (74-99) mg/dL POC Glucose (mg/dL) >600 H (70-110) mg/dL POC Glu [employer] ID Becca Parmar Lactic Ac Sepsis Rflx Plasma Lactic Acid Neymar (0.7-2.0) mmol/L Calcium (8.4-10.2) mg/dL Total Bilirubin (0.2-1.3) mg/dL AST (17-59) U/L ALT (4-49) U/L Alkaline Phosphatase (38-126) U/L Total Protein (6.3-8.2) g/dL Albumin (3.5-5.0) g/dL Serum Alcohol mg/dL Acetone, Qual (Negative) Disposition Clinical Impression: Diabetic ketoacidosis, Hyperkalemia, BILL (acute kidney injury), Acute metabolic encephalopathy, Hyperglycemia Disposition: ADMITTED IP TO THIS HOSP Condition: Good Is patient prescribed a controlled substance at d/c from ED?: No Time of Disposition: 17:25 Decision to Admit Reason: Admit from EC Decision Date: 12/13/22 Decision Time: 17:25
[2022-12-13 16:52] LABS: Glucose 1519 mg/dL (74-99)
[2022-12-13 16:56] LABS: Carbon Dioxide <5 mmol/L (22-30); Potassium 7.9 mmol/L (3.5-5.1)
[2022-12-13 17:05] LABS: Band Neutrophils % 2 %; Lymphocytes # (M) 1.57 k/uL (1.0-4.8); Monocytes # (M) 1.31 k/uL (0-1.0); Myelocytes # (M) 1.05 k/uL (0); Myelocytes % 4 %; Neutrophils % (M) 83 %; Nucleated Red Blood Cells 0 /100 WBC (0-0); Polychromasia Present; Total Cells Counted 200
[2022-12-13 17:06] LABS: Large Platelets Present
[2022-12-13] MEDS: INSULIN REGULAR 100 UNIT in SODIUM CHLORIDE 0.9% 100 ML IV SCH (17:06)
[2022-12-13 17:15] LABS: Glucose,Whole Blood >600 mg/dL (70-110)
[2022-12-13 18:10] LABS: Glucose,Whole Blood >600 mg/dL (70-110)
[2022-12-13 18:16] LABS: Appearance,Urine Clear (Clear); Bilirubin,Urine Negative (Negative); Blood,Urine Negative (Negative); Color,Urine Colorless; Glucose,Urine (UA) 4+ (Negative); Leukocyte Esterase,Urine Negative (Negative); Nitrite,Urine Negative (Negative); Protein,Urine Negative (Negative); Specific Gravity,Urine 1.022 (1.001-1.035); Urobilinogen,Urine <2.0 mg/dL (<2.0)
[2022-12-13 18:24] LABS: Amphetamine Screen,Urine Not Detected (NotDetected); Barbiturate Screen,Urine Not Detected (NotDetected); Benzodiazepines Screen,Urine Not Detected (NotDetected); Cocaine Screen,Urine Not Detected (NotDetected); Methadone Screen, Urine Not Detected (NotDetected); Opiate Screen,Urine Not Detected (NotDetected); Oxycodone Screen, Urine Not Detected (NotDetected); Phencyclidine Screen,Urine Not Detected (NotDetected); Tricyclic Antidepressant,Urine Not Detected (NotDetected); Urn Cannabinoid Scrn Detected (NotDetected)
[2022-12-13 18:25] LABS: ABG Base Excess -18.4 mmol/L; ABG Oxygen Saturation 97.7 % (94-97); ABG PCO2 26 mmHg (35-45); ABG PO2 118 mmHg (83-108); ABG TCO2 11 mmol/L (19-24); Allen Test Performed? Yes
[2022-12-13 18:26] LABS: Ketones,Urine 3+ (Negative)
[2022-12-13 18:26] LABS: ABG HCO3 10 mmol/L (21-25); ABG PH 7.19 (7.35-7.45)
[2022-12-13 19:04] LABS: Glucose,Whole Blood >600 mg/dL (70-110)
[2022-12-13 19:41] LABS: INR 0.9 (<1.2)
[2022-12-13 19:42] LABS: Partial Thromboplastin Time 19.6 sec (22.0-30.0)
[2022-12-13] MEDS: SODIUM CHLORIDE 0.9% 1,000 ML IV SCH ×2 (20:09→21:45)
--- NOTE | 2022-12-13 20:30 | XR ---
EXAMINATION TYPE: XR chest 2V DATE OF EXAM: 12/13/2022 7:51 PM COMPARISON: Chest x-ray 07/18/2022 TECHNIQUE: XR chest 2V . CLINICAL INDICATION:Male, 32 years old with history of altered mental status; FINDINGS: Lungs/Pleura: There is no evidence of pleural effusion, focal consolidation, or pneumothorax. Pulmonary vascularity: Unremarkable. Heart/mediastinum: Cardiomediastinal silhouette is unremarkable. Musculoskeletal: No acute osseous pathology. IMPRESSION: No acute cardiopulmonary disease/process.
[2022-12-13 20:38] LABS: Glucose,Whole Blood >600 mg/dL (70-110)
[2022-12-13 20:44] LABS: African American GFR (CKD) 54 (>60 ml/min/1.73 sqM); Anion Gap 31 mmol/L; Blood Urea Nitrogen 62 mg/dL (9-20); Calcium 9.1 mg/dL (8.4-10.2); Chloride 95 mmol/L (98-107); Non-African American GFR(CKD) 47 (>60 ml/min/1.73 sqM); Sodium 135 mmol/L (137-145)
[2022-12-13 20:59] LABS: Carbon Dioxide 9 mmol/L (22-30); Glucose 810 mg/dL (74-99); Potassium 5.5 mmol/L (3.5-5.1)
[2022-12-13 21:00] LABS: Phosphorus 7.4 mg/dL (2.5-4.5)
[2022-12-13 21:07] LABS: Glucose,Whole Blood 579 mg/dL (70-110)
[2022-12-13 21:55] LABS: Glucose,Whole Blood 464 mg/dL (70-110)
[2022-12-13 22:27] LABS: Glucose,Whole Blood 383 mg/dL (70-110)
[2022-12-13 23:24] LABS: Glucose,Whole Blood 415 mg/dL (70-110)
[2022-12-14 00:31] LABS: African American GFR (CKD) 79 (>60 ml/min/1.73 sqM); Anion Gap 16 mmol/L; Blood Urea Nitrogen 61 mg/dL (9-20); Carbon Dioxide 21 mmol/L (22-30); Chloride 100 mmol/L (98-107); Glucose 273 mg/dL (74-99); Non-African American GFR(CKD) 68 (>60 ml/min/1.73 sqM); Phosphorus 4.4 mg/dL (2.5-4.5); Potassium 4.6 mmol/L (3.5-5.1); Sodium 137 mmol/L (137-145)
[2022-12-14 00:33] LABS: Glucose,Whole Blood 232 mg/dL (70-110)
--- NOTE | 2022-12-14 01:05 | P.CNPUL ---
History of Present Illness Consult date: 12/14/22 Requesting physician: Tomeka Lainez Reason for consult: other (ICU management) Chief complaint: Altered mental status History of present illness: I am seeing this patient in new consultation today 12/14/2022 in the intensive care unit for diabetic ketoacidosis. Patient is a 32-year-old white male with past medical history significant for type 1 diabetes mellitus. Patient's significant other is at bedside, who states the patient has had multiple recent emergency room visits for DKA. Patient's primary care provider is Dr. Michelet Aguirre. Patient's significant other, who is in the process of undergoing divorce, found the patient unresponsive at home. She states that he lives upstairs and she lives downstairs, and is unsure of when he was last known well. Patient's significant other denies any recent illnesses, binge drinking, or drug use. Initial chest x-ray showed no evidence of focal consolidation or pneumonia. The patient was in DKA on arrival. Blood glucose was 1519, serum bicarb less than 5, anion gap was unmeasurable, and was positive for acetone. The patient was placed on the DKA protocol, and admitted to the intensive care unit. Insulin is infusing at 5.5 units per hour. He is currently lying in bed, on room air, in no acute distress. He is lethargic, and intermittently responds to questioning. The patient was dehydrated; and has a component of acute kidney injury, which is improving. Most recent BMP shows sodium 137, potassium 4.6, chloride 100, serum bicarbonate 21, anion gap 16, BUN 61, creatinine 1.36, glucose down to 273. Normal saline is infusing at 200 ML's per hour. There is a component of lactic acidosis with a lactic acid level of 8.9. Most recent CBC has a WBC count of 26, hemoglobin 15, hematocrit 59, platelets 516. ABG done on room air shows a pO2 of 118, pCO2 26, pH of 7.19. Urine tox screen was negative except for marijuana. Serum alcohol level less than 10. Heart rate is slightly tachycardic at 116 bpm. Vital signs are otherwise stable. He will be monitored in the intensive care unit until his DKA resolves. Review of Systems ROS unobtainable: due to mental status Past Medical History Past Medical History: Asthma, Diabetes Mellitus, Hyperlipidemia, Hypertension, Osteoarthritis (OA) Additional Past Medical History / Comment(s): IDDM type I, diabetic gastroparesis, neuropathy bilateral hands/fingers, migraines, arthrtitis fingers/knees, past R hand and L femur fractures. Previous DKA History of Any Multi-Drug Resistant Organisms: MRSA Date of last positivie culture/infection: 04/26/2014 MDRO Source:: Face Past Surgical History: Ear Surgery, Orthopedic Surgery Additional Past Surgical History / Comment(s): R hand surgery d/t fracture- pinned and pins since removed, L leg femur fracture with pin that eventually was removed, bilateral myringotomy with tubes/ear drum repairs.; Left pinky removal Past Anesthesia/Blood Transfusion Reactions: No Reported Reaction Past Psychological History: Anxiety, Bipolar, Depression Smoking Status: Current every day smoker Past Alcohol Use History: None Reported Past Drug Use History: Marijuana - Past Family History Father Family Medical History: Hyperlipidemia, Hypertension, Myocardial Infarction ([place]) Mother Family Medical History: COPD Additional Family Medical History / Comment(s): home O2, Brother(s) Family Medical History: No Reported History Medications and Allergies Home Medications Medication Instructions Recorded Confirmed Type Insulin Aspart [NovoLOG Flexpen] 10 units SQ TID-W/MEALS 01/31/22 12/13/22 Histo ry Insulin Detemir [Levemir Flextouch 36 units SQ DAILY 09/26/22 12/13/22 History Pen] carvediloL [Coreg] 3.125 mg PO BID-W/MEALS 12/13/22 12/13/22 History Allergies Allergy/AdvReac Type Severity Reaction Status Date / Time latex Allergy Rash/Hives Verified 12/13/22 17:52 Physical Exam Vitals: Vital Signs Temp Pulse Resp BP Pulse Ox 12/13/22 22:30 131 H 22 113/85 97 12/13/22 22:20 130 H 21 113/85 97 12/13/22 22:10 128 H 22 123/86 98 12/13/22 22:00 128 H 19 131/81 98 12/13/22 21:50 134 H 25 H 131/81 98 12/13/22 21:40 130 H 17 123/86 98 12/13/22 21:33 128 H 20 123/86 98 12/13/22 21:20 124 H 20 126/88 99 12/13/22 21:10 97.1 F L 126 H 18 123/88 99 12/13/22 21:04 130 H 19 12/13/22 19:08 126 H 22 135/89 98 12/13/22 19:04 126 H 12/13/22 18:37 120 H 12/13/22 18:04 120 H 18 129/89 95 12/13/22 16:37 129 H 24 85/42 100 12/13/22 15:11 117 H 18 99 Intake and Output 12/13/22 12/13/22 12/14/22 14:59 22:59 06:59 Other: Weight 54.431 kg GENERAL EXAM: Lethargic and intermittently responsive to questioning. In no acute distress. HEAD: Normocephalic and atraumatic EYES: Normal reaction of pupils, equal size. NOSE: Clear with pink turbinates. THROAT: No erythema or exudates. NECK: No masses, no JVD. CHEST: No chest wall deformity. LUNGS: Equal air entry with no crackles, wheeze, rhonchi or dullness. On room air. No conversational dyspnea or accessory muscle use.. CVS: S1 and S2 normal with no audible murmur, regular rhythm. No extra heart sounds. Heart rate is currently 118 bpm. ABDOMEN: No hepatosplenomegaly, active bowel sounds, no guarding or rigidity. SPINE: No scoliosis or deformity SKIN: No rashes CENTRAL NERVOUS SYSTEM: No focal deficits, tone is normal in all 4 extremities. EXTREMITIES: There is no peripheral edema, clubbing, or cyanosis. Peripheral pulses are intact. Results - Laboratory Findings CBC and BMP: 12/14/22 04:21 12/14/22 04:21 ABG ABG pH 7.19 (7.35-7.45) L* 12/13/22 18:20 ABG pCO2 26 mmHg (35-45) L 12/13/22 18:20 ABG pO2 118 mmHg (83-108) H 12/13/22 18:20 ABG O2 Saturation 97.7 % (94-97) H 12/13/22 18:20 PT/INR, D-dimer PT 10.0 sec (9.0-12.0) 12/13/22 18:46 INR 0.9 (<1.2) 12/13/22 18:46 Abnormal lab findings: Abnormal Labs 12/13/22 12/13/22 12/13/22 15:19 15:59 15:59 WBC 26.2 H Hct 57.8 H* MCV 117.0 H MCHC 26.3 L Plt Count 516 H Neutrophils # (Manual) 22.20 H Monocytes # (Manual) 1.31 H Myelocytes # (Manual) 1.05 H Macrocytosis Marked A APTT ABG pH ABG pCO2 ABG pO2 ABG HCO3 ABG Total CO2 ABG O2 Saturation VBG pH VBG pCO2 VBG HCO3 Sodium 122 L Potassium 7.9 H* Chloride 75 L Carbon Dioxide <5 L* BUN 62 H Creatinine 2.56 H Glucose 1519 H* POC Glucose (mg/dL) >600 H Plasma Lactic Acid Neymar Phosphorus ALT 62 H Alkaline Phosphatase 249 H Urine Glucose (UA) Urine Ketones U Marijuana (THC) Screen 12/13/22 12/13/22 12/13/22 15:59 16:21 17:08 WBC Hct MCV MCHC Plt Count Neutrophils # (Manual) Monocytes # (Manual) Myelocytes # (Manual) Macrocytosis APTT ABG pH ABG pCO2 ABG pO2 ABG HCO3 ABG Total CO2 ABG O2 Saturation VBG pH 7.13 L* VBG pCO2 18 L* VBG HCO3 6 L* Sodium Potassium Chloride Carbon Dioxide BUN Creatinine Glucose POC Glucose (mg/dL) >600 H Plasma Lactic Acid Neymar 8.4 H* Phosphorus ALT Alkaline Phosphatase Urine Glucose (UA) Urine Ketones U Marijuana (THC) Screen 12/13/22 12/13/22 12/13/22 17:58 17:58 18:09 WBC Hct MCV MCHC Plt Count Neutrophils # (Manual) Monocytes # (Manual) Myelocytes # (Manual) Macrocytosis APTT ABG pH ABG pCO2 ABG pO2 ABG HCO3 ABG Total CO2 ABG O2 Saturation VBG pH VBG pCO2 VBG HCO3 Sodium Potassium Chloride Carbon Dioxide BUN Creatinine Glucose POC Glucose (mg/dL) >600 H Plasma Lactic Acid Neymar Phosphorus ALT Alkaline Phosphatase Urine Glucose (UA) 4+ H Urine Ketones 3+ H U Marijuana (THC) Screen Detected H 12/13/22 12/13/22 12/13/22 18:20 18:46 18:46 WBC Hct MCV MCHC Plt Count Neutrophils # (Manual) Monocytes # (Manual) Myelocytes # (Manual) Macrocytosis APTT 19.6 L ABG pH 7.19 L* ABG pCO2 26 L ABG pO2 118 H ABG HCO3 10 L* ABG Total CO2 11 L ABG O2 Saturation 97.7 H VBG pH VBG pCO2 VBG HCO3 Sodium Potassium Chloride Carbon Dioxide BUN Creatinine Glucose POC Glucose (mg/dL) Plasma Lactic Acid Neymar 5.6 H* Phosphorus ALT Alkaline Phosphatase Urine Glucose (UA) Urine Ketones U Marijuana (THC) Screen 12/13/22 12/13/22 12/13/22 19:03 20:15 20:36 WBC Hct MCV MCHC Plt Count Neutrophils # (Manual) Monocytes # (Manual) Myelocytes # (Manual) Macrocytosis APTT ABG pH ABG pCO2 ABG pO2 ABG HCO3 ABG Total CO2 ABG O2 Saturation VBG pH VBG pCO2 VBG HCO3 Sodium 135 L Potassium 5.5 H Chloride 95 L Carbon Dioxide 9 L* BUN 62 H Creatinine 1.86 H Glucose 810 H* POC Glucose (mg/dL) >600 H >600 H Plasma Lactic Acid Neymar Phosphorus 7.4 H ALT Alkaline Phosphatase Urine Glucose (UA) Urine Ketones U Marijuana (THC) Screen 12/13/22 12/13/22 12/13/22 21:05 21:53 22:22 WBC Hct MCV MCHC Plt Count Neutrophils # (Manual) Monocytes # (Manual) Myelocytes # (Manual) Macrocytosis APTT ABG pH ABG pCO2 ABG pO2 ABG HCO3 ABG Total CO2 ABG O2 Saturation VBG pH VBG pCO2 VBG HCO3 Sodium Potassium Chloride Carbon Dioxide BUN Creatinine Glucose POC Glucose (mg/dL) 579 H 464 H Plasma Lactic Acid Neymar 8.9 H* Phosphorus ALT Alkaline Phosphatase Urine Glucose (UA) Urine Ketones U Marijuana (THC) Screen 12/13/22 12/13/22 12/14/22 22:25 23:22 00:04 WBC Hct MCV MCHC Plt Count Neutrophils # (Manual) Monocytes # (Manual) Myelocytes # (Manual) Macrocytosis APTT ABG pH ABG pCO2 ABG pO2 ABG HCO3 ABG Total CO2 ABG O2 Saturation VBG pH VBG pCO2 VBG HCO3 Sodium Potassium Chloride Carbon Dioxide 21 L BUN 61 H Creatinine 1.36 H Glucose 273 H POC Glucose (mg/dL) 383 H 415 H Plasma Lactic Acid Neymar Phosphorus ALT Alkaline Phosphatase Urine Glucose (UA) Urine Ketones U Marijuana (THC) Screen 12/14/22 00:31 WBC Hct MCV MCHC Plt Count Neutrophils # (Manual) Monocytes # (Manual) Myelocytes # (Manual) Macrocytosis APTT ABG pH ABG pCO2 ABG pO2 ABG HCO3 ABG Total CO2 ABG O2 Saturation VBG pH VBG pCO2 VBG HCO3 Sodium Potassium Chloride Carbon Dioxide BUN Creatinine Glucose POC Glucose (mg/dL) 232 H Plasma Lactic Acid Neymar Phosphorus ALT Alkaline Phosphatase Urine Glucose (UA) Urine Ketones U Marijuana (THC) Screen - Diagnostic Findings Chest x-ray: image reviewed Assessment and Plan Assessment: Diabetic ketoacidosis. On arrival, blood glucose was 1519, serum bicarb less than 5, anion gap was unmeasurable, and was positive for acetone. Currently on the DKA protocol. He has had multiple emergency room visits for DKA this year, possibly related to medication noncompliance Acute anion gap metabolic acidosis, secondary to above and a component of lactic acidosis Acute kidney injury, prerenal, secondary to dehydration Hyperkalemia, improved Acute toxic metabolic encephalopathy Leukocytosis, no obvious infectious etiology Diabetes mellitus type 1 Plan: Patient's medications, labs, chest x-ray reviewed Continue DKA protocol Normal saline is infusing at 200 ML's per hour May transition to D5W/0.45% with 20 meq/L kcl at 150 ML's per hour once blood glucose less than 250 Monitor electrolytes every 4 hours until DKA results Patient will be monitored in the intensive care unit until DKA resolves, likely later today I have personally seen and examined the patient, performed the documentation and the assessment and plan as written. Number of minutes spent on the visit:20 This is a joint evaluation that was done along with the nurse practitioner. The patient was hospitalized with DKA and severe anion gap metabolic acidosis. The patient also had an acute kidney injury. Initial gap was very high and the serum bicarb was less than 5 and a potassium level was at 7.9 and the patient's creatinine was at 2.5. The patient was assisted with IV fluids and he was placed on an insulin drip and earlier this morning, his gap is closed and is down to 11 with a serum bicarb of 23. Creatinine is also normalizes felt to 1 with a BUN of 58. He continues to have some sinus tachycardia. His white cell count has somewhat improved compared to yesterday's down to 23. The patient is still lethargic. He is not aware of what happens. He tells that he got sick his blood sugars were quite elevated and it was 15 19 and the time of admission. He has a maternal Levemir insulin on outpatient basis. He also takes a blood pressure medication. His blood pressures also elevated this morning at 161/108. He is on D5 half-normal saline at rate of 150 mL an hour. Insulin drip is still running at 2.3 units an hour. Pulse ox is 98% on room and oxygen. No nausea. No emesis. No abdominal pain. No fever. No chills Plan is to offer this patient diet and following that transition into his regular dose of Levemir insulin along with a sliding scale coverage. We'll put him on heparin subcutaneous for DVT prophylaxis. We'll start him on Coreg 6.25 mg by mouth twice a day. We'll continue to follow. Evaluation was done, >30 min Time with Patient: Greater than 30
[2022-12-14 01:27] LABS: Glucose,Whole Blood 180 mg/dL (70-110)
[2022-12-14 02:38] LABS: Glucose,Whole Blood 115 mg/dL (70-110)
[2022-12-14] MEDS: D5-0.45% NACL WITH KCL 20MEQ/L 1,000 ML IV SCH ×3 (02:54→16:17)
[2022-12-14 03:41] LABS: Glucose,Whole Blood 129 mg/dL (70-110)
[2022-12-14 04:40] LABS: Basophils # (A) 0.1 k/uL (0-0.2); Basophils % (A) 0 %; Eosinophils # (A) 0.1 k/uL (0-0.7); Eosinophils % (A) 0 %; HCT 42.5 % (39.0-53.0); HGB 13.7 gm/dL (13.0-17.5); Lymphocytes # (A) 1.4 k/uL (1.0-4.8); Lymphocytes % (A) 6 %; MCH 30.4 pg (25.0-35.0); MCHC 32.2 g/dL (31.0-37.0); Monocytes # (A) 1.6 k/uL (0-1.0); Monocytes % (A) 7 %; Neutrophils # (A) 19.4 k/uL (1.3-7.7); Neutrophils % (A) 84 %; Platelet Count 401 k/uL (150-450); RDW 14.3 % (11.5-15.5)
[2022-12-14 04:41] LABS: Glucose,Whole Blood 133 mg/dL (70-110)
[2022-12-14 04:44] LABS: African American GFR (CKD) >90 (>60 ml/min/1.73 sqM); Anion Gap 11 mmol/L; Blood Urea Nitrogen 58 mg/dL (9-20); Calcium 9.1 mg/dL (8.4-10.2); Carbon Dioxide 23 mmol/L (22-30); Chloride 102 mmol/L (98-107); Glucose 164 mg/dL (74-99); Non-African American GFR(CKD) >90 (>60 ml/min/1.73 sqM); Potassium 4.8 mmol/L (3.5-5.1); Sodium 136 mmol/L (137-145)
[2022-12-14 05:35] LABS: MCV 94.4 fL (80.0-100.0)
[2022-12-14 05:52] LABS: Glucose,Whole Blood 212 mg/dL (70-110)
[2022-12-14 06:33] LABS: Glucose,Whole Blood 275 mg/dL (70-110)
[2022-12-14] MEDS: SODIUM CHLORIDE 0.9% 1,000 ML IV SCH (06:45)
[2022-12-14 07:50] LABS: Glucose,Whole Blood 213 mg/dL (70-110)
[2022-12-14 08:37] LABS: Glucose,Whole Blood 203 mg/dL (70-110)
[2022-12-14] MEDS ORDERED: INSULIN DETEMIR (LEVEMIR) 100 UNIT/ML SYR SQ SCH (09:00)
[2022-12-14] MEDS: carvediloL 6.25 MG TAB PO SCH ×2 (09:21→16:32)
[2022-12-14] MEDS: HEPARIN SODIUM,PORCINE/PF 5,000 UNIT/0.5 ML SYRINGE SQ SCH ×2 (09:23→16:32)
[2022-12-14 09:38] LABS: Glucose,Whole Blood 179 mg/dL (70-110)
[2022-12-14 10:29] LABS: Glucose,Whole Blood 193 mg/dL (70-110)
[2022-12-14 11:55] LABS: Glucose,Whole Blood 185 mg/dL (70-110)
[2022-12-14 12:50] LABS: Glucose,Whole Blood 151 mg/dL (70-110)
--- NOTE | 2022-12-14 13:50 | P.HPIM ---
History of Present Illness H&P Date: 12/14/22 History of present illness; patient is a 32-year-old gentleman with past medical history significant for insulin-dependent diabetes mellitus was brought to the ER for altered level of consciousness. Patient lives with his with whom he is but they live in the same house, who found her to be unresponsive. Patient multiple prior visits to the ER and hospital for DKA because of noncomp liance. Patient unable to give any history at that time. Initial lab work in the ER showed WBC count 6.2, hemoglobin 15.2, platelet count 1516, sodium 122, potassium 7.9, BUN 62, creatinine 2.56 Patient was started on insulin drip and was admitted to ICU REVIEW OF SYSTEMS: CONSTITUTIONAL: No fever, no malaise, no fatigue. HEENT: No recent visual problems or hearing problems. Denied any sore throat. CARDIOVASCULAR: No chest pain, orthopnea, PND, no palpitations, no syncope. PULMONARY: No shortness of breath, no cough, no hemoptysis. GASTROINTESTINAL: Denies abdominal pain. Complaining of nausea. Complaining of loss of appetite NEUROLOGICAL: No headaches, no weakness, no numbness. HEMATOLOGICAL: Denies any bleeding or petechiae. GENITOURINARY: Denies any burning micturition, frequency, or urgency. MUSCULOSKELETAL/RHEUMATOLOGICAL: Denies any joint pain, swelling, or any muscle pain. ENDOCRINE: Denies any polyuria or polydipsia. The rest of the 14-point review of systems is negative. PHYSICAL EXAMINATION: GENERAL: The patient is alert and oriented x3, not in any acute distress. Well developed, well nourished. HEENT: Pupils are round and equally reacting to light. EOMI. No scleral icterus. No conjunctival pallor. Normocephalic, atraumatic. No pharyngeal erythema. No thyromegaly. CARDIOVASCULAR: S1 and S2 present. No murmurs, rubs, or gallops. PULMONARY: Chest is clear to auscultation, no wheezing or crackles. ABDOMEN: Soft, nontender, nondistended, normoactive bowel sounds. No palpable organomegaly. MUSCULOSKELETAL: No joint swelling or deformity. EXTREMITIES: No cyanosis, clubbing, or pedal edema. NEUROLOGICAL: Gross neurological examination did not reveal any focal deficits. SKIN: No rashes. Assessment and plan Diabetic ketoacidosis. Acute anion gap metabolic acidosis, secondary to above and a component of lactic acidosis Hyponatremia Hyperkalemia Acute kidney injury Acute toxic metabolic encephalopathy Leukocytosis, no obvious infectious etiology Monitor vital signs Monitor CBC Monitor CMP Continue to monitor electrolytes every 4 hourly Keep patient on DKA protocol Continue insulin drip Once blood sugars less than 250, switch to D5 half normal saline Once anion gap closes and patient able to tolerate oral diet, will switch to subcu insulin Resume home meds critical care following Past Medical History Past Medical History: Asthma, Diabetes Mellitus, Hyperlipidemia, Hypertension, Osteoarthritis (OA) Additional Past Medical History / Comment(s): IDDM type I, diabetic gastroparesis, neuropathy bilateral hands/fingers, migraines, arthrtitis fingers/knees, past R hand and L femur fractures. Previous DKA History of Any Multi-Drug Resistant Organisms: MRSA Date of last positivie culture/infection: 04/26/2014 MDRO Source:: Face Past Surgical History: Ear Surgery, Orthopedic Surgery Additional Past Surgical History / Comment(s): R hand surgery d/t fracture- pinned and pins since removed, L leg femur fracture with pin that eventually was removed, bilateral myringotomy with tubes/ear drum repairs.; Left pinky removal Past Anesthesia/Blood Transfusion Reactions: No Reported Reaction Past Psychological History: Anxiety, Bipolar, Depression Smoking Status: Current every day smoker Past Alcohol Use History: None Reported Past Drug Use History: Marijuana - Past Family History Father Family Medical History: Hyperlipidemia, Hypertension, Myocardial Infarction ([place]) Mother Family Medical History: COPD Additional Family Medical History / Comment(s): home O2, Brother(s) Family Medical History: No Reported History Medications and Allergies Home Medications Medication Instructions Recorded Confirmed Type Insulin Aspart [NovoLOG Flexpen] 10 units SQ TID-W/MEALS 01/31/22 12/13/22 History Insulin Detemir [Levemir Flextouch 36 units SQ DAILY 09/26/22 12/13/22 History Pen] carvediloL [Coreg] 3.125 mg PO BID-W/MEALS 12/13/22 12/13/22 History Allergies Allergy/AdvReac Type Severity Reaction Status Date / Time latex Allergy Rash/Hives Verified 12/13/22 17:52 Physical Exam Vitals: Vital Signs Temp Pulse Resp BP Pulse Ox 12/14/22 09:00 103 H 18 156/102 98 12/14/22 08:00 98.3 F 100 18 161/108 98 12/14/22 07:00 114 H 19 164/90 97 12/14/22 06:00 104 H 23 165/105 97 12/14/22 05:00 108 H 21 144/91 97 12/14/22 04:00 98.0 F 113 H 20 151/99 97 12/14/22 03:00 112 H 19 145/102 98 12/14/22 02:00 126 H 20 140/95 97 12/14/22 01:00 135 H 0 L 137/98 94 L 12/14/22 00:00 97.1 F L 128 H 22 148/99 97 12/13/22 23:00 128 H 18 111/90 98 12/13/22 22:32 129 H 20 125/83 97 12/13/22 22:30 131 H 22 113/85 97 12/13/22 22:20 130 H 21 113/85 97 12/13/22 22:10 128 H 22 123/86 98 12/13/22 22:00 128 H 19 131/81 98 12/13/22 21:50 134 H 25 H 131/81 98 12/13/22 21:40 130 H 17 123/86 98 12/13/22 21:33 128 H 20 123/86 98 12/13/22 21:20 124 H 20 126/88 99 12/13/22 21:10 97.1 F L 126 H 18 123/88 99 12/13/22 21:04 130 H 19 12/13/22 19:08 126 H 22 135/89 98 12/13/22 19:04 126 H 12/13/22 18:37 120 H 12/13/22 18:04 120 H 18 129/89 95 12/13/22 16:37 129 H 24 85/42 100 12/13/22 15:11 117 H 18 99 Intake and Output 12/13/22 12/14/22 12/14/22 22:59 06:59 14:59 Intake Total 400 1459.423 450 Output Total 0 550 550 Balance 400 909.423 -100 Intake: IV 400 1400 450 D5-0.45% NaCl with KCl 600 450 20Meq/l 1,000 ml @ 150 mls/hr IV .[id number] [facility] Rx# :[id number] Sodium Chloride 0.9% 1, 400 800 000 ml @ 200 mls/hr IV . Q5H [facility] Rx#:[id number] Intake, IV Titration 59.423 Amount Insulin Regular 100 unit 59.423 In Sodium Chloride 0.9% 100 ml @ 0.1 UNITS/KG/HR 5.498 mls/hr IV .[id number] [facility] Rx#:[id number] Output: Urine 0 550 550 Other: Voiding Method Urinal Weight 54.431 kg 53.2 kg Results CBC & Chem 7: 12/14/22 04:21 12/14/22 04:21 Labs: Abnormal Lab Results - Last 24 Hours (Table) 12/13/22 12/13/22 12/13/22 Range/Units 15:19 15:59 15:59 WBC 26.2 H (3.8-10.6) k/uL Hct 57.8 H* (39.0-53.0) % MCV 117.0 H (80.0-100.0) fL MCHC 26.3 L (31.0-37.0) g/dL Plt Count 516 H (150-450) k/uL Neutrophils # (1.3-7.7) k/uL Neutrophils # (Manual) 22.20 H (1.3-7.7) k/uL Monocytes # (0-1.0) k/uL Monocytes # (Manual) 1.31 H (0-1.0) k/uL Myelocytes # (Manual) 1.05 H (0) k/uL Macrocytosis Marked A APTT (22.0-30.0) sec ABG pH (7.35-7.45) ABG pCO2 (35-45) mmHg ABG pO2 (83-108) mmHg ABG HCO3 (21-25) mmol/L ABG Total CO2 (19-24) mmol/L ABG O2 Saturation (94-97) % VBG pH (7.31-7.41) VBG pCO2 (37-51) mmHg VBG HCO3 (24-28) mmol/L Sodium 122 L (137-145) mmol/L Potassium 7.9 H* (3.5-5.1) mmol/L Chloride 75 L (98-107) mmol/L Carbon Dioxide <5 L* (22-30) mmol/L BUN 62 H (9-20) mg/dL Creatinine 2.56 H (0.66-1.25) mg/dL Glucose 1519 H* (74-99) mg/dL POC Glucose (mg/dL) >600 H (70-110) mg/dL Hemoglobin A1c (<=6.0) % Plasma Lactic Acid Neymar (0.7-2.0) mmol/L Phosphorus (2.5-4.5) mg/dL ALT 62 H (4-49) U/L Alkaline Phosphatase 249 H (38-126) U/L Urine Glucose (UA) (Negative) Urine Ketones (Negative) U Marijuana (THC) Screen (NotDetected) 12/13/22 12/13/22 12/13/22 Range/Units 15:59 16:21 17:08 WBC (3.8-10.6) k/uL Hct (39.0-53.0) % MCV (80.0-100.0) fL MCHC (31.0-37.0) g/dL Plt Count (150-450) k/uL Neutrophils # (1.3-7.7) k/uL Neutrophils # (Manual) (1.3-7.7) k/uL Monocytes # (0-1.0) k/uL Monocytes # (Manual) (0-1.0) k/uL Myelocytes # (Manual) (0) k/uL Macrocytosis APTT (22.0-30.0) sec ABG pH (7.35-7.45) ABG pCO2 (35-45) mmHg ABG pO2 (83-108) mmHg ABG HCO3 (21-25) mmol/L ABG Total CO2 (19-24) mmol/L ABG O2 Saturation (94-97) % VBG pH 7.13 L* (7.31-7.41) VBG pCO2 18 L* (37-51) mmHg VBG HCO3 6 L* (24-28) mmol/L Sodium (137-145) mmol/L Potassium (3.5-5.1) mmol/L Chloride (98-107) mmol/L Carbon Dioxide (22-30) mmol/L BUN (9-20) mg/dL Creatinine (0.66-1.25) mg/dL Glucose (74-99) mg/dL POC Glucose (mg/dL) >600 H (70-110) mg/dL Hemoglobin A1c (<=6.0) % Plasma Lactic Acid Neymar 8.4 H* (0.7-2.0) mmol/L Phosphorus (2.5-4.5) mg/dL ALT (4-49) U/L Alkaline Phosphatase (38-126) U/L Urine Glucose (UA) (Negative) Urine Ketones (Negative) U Marijuana (THC) Screen (NotDetected) 12/13/22 12/13/22 12/13/22 Range/Units 17:58 17:58 18:09 WBC (3.8-10.6) k/uL Hct (39.0-53.0) % MCV (80.0-100.0) fL MCHC (31.0-37.0) g/dL Plt Count (150-450) k/uL Neutrophils # (1.3-7.7) k/uL Neutrophils # (Manual) (1.3-7.7) k/uL Monocytes # (0-1.0) k/uL Monocytes # (Manual) (0-1.0) k/uL Myelocytes # (Manual) (0) k/uL Macrocytosis APTT (22.0-30.0) sec ABG pH (7.35-7.45) ABG pCO2 (35-45) mmHg ABG pO2 (83-108) mmHg ABG HCO3 (21-25) mmol/L ABG Total CO2 (19-24) mmol/L ABG O2 Saturation (94-97) % VBG pH (7.31-7.41) VBG pCO2 (37-51) mmHg VBG HCO3 (24-28) mmol/L Sodium (137-145) mmol/L Potassium (3.5-5.1) mmol/L Chloride (98-107) mmol/L Carbon Dioxide (22-30) mmol/L BUN (9-20) mg/dL Creatinine (0.66-1.25) mg/dL Glucose (74-99) mg/dL POC Glucose (mg/dL) >600 H (70-110) mg/dL Hemoglobin A1c (<=6.0) % Plasma Lactic Acid Neymar (0.7-2.0) mmol/L Phosphorus (2.5-4.5) mg/dL ALT (4-49) U/L Alkaline Phosphatase (38-126) U/L Urine Glucose (UA) 4+ H (Negative) Urine Ketones 3+ H (Negative) U Marijuana (THC) Screen Detected H (NotDetected) 12/13/22 12/13/22 12/13/22 Range/Units 18:20 18:46 18:46 WBC (3.8-10.6) k/uL Hct (39.0-53.0) % MCV (80.0-100.0) fL MCHC (31.0-37.0) g/dL Plt Count (150-450) k/uL Neutrophils # (1.3-7.7) k/uL Neutrophils # (Manual) (1.3-7.7) k/uL Monocytes # (0-1.0) k/uL Monocytes # (Manual) (0-1.0) k/uL Myelocytes # (Manual) (0) k/uL Macrocytosis APTT 19.6 L (22.0-30.0) sec ABG pH 7.19 L* (7.35-7.45) ABG pCO2 26 L (35-45) mmHg ABG pO2 118 H (83-108) mmHg ABG HCO3 10 L* (21-25) mmol/L ABG Total CO2 11 L (19-24) mmol/L ABG O2 Saturation 97.7 H (94-97) % VBG pH (7.31-7.41) VBG pCO2 (37-51) mmHg VBG HCO3 (24-28) mmol/L Sodium (137-145) mmol/L Potassium (3.5-5.1) mmol/L Chloride (98-107) mmol/L Carbon Dioxide (22-30) mmol/L BUN (9-20) mg/dL Creatinine (0.66-1.25) mg/dL Glucose (74-99) mg/dL POC Glucose (mg/dL) (70-110) mg/dL Hemoglobin A1c (<=6.0) % Plasma Lactic Acid Neymar 5.6 H* (0.7-2.0) mmol/L Phosphorus (2.5-4.5) mg/dL ALT (4-49) U/L Alkaline Phosphatase (38-126) U/L Urine Glucose (UA) (Negative) Urine Ketones (Negative) U Marijuana (THC) Screen (NotDetected) 12/13/22 12/13/22 12/13/22 Range/Units 19:03 20:15 20:36 WBC (3.8-10.6) k/uL Hct (39.0-53.0) % MCV (80.0-100.0) fL MCHC (31.0-37.0) g/dL Plt Count (150-450) k/uL Neutrophils # (1.3-7.7) k/uL Neutrophils # (Manual) (1.3-7.7) k/uL Monocytes # (0-1.0) k/uL Monocytes # (Manual) (0-1.0) k/uL Myelocytes # (Manual) (0) k/uL Macrocytosis APTT (22.0-30.0) sec ABG pH (7.35-7.45) ABG pCO2 (35-45) mmHg ABG pO2 (83-108) mmHg ABG HCO3 (21-25) mmol/L ABG Total CO2 (19-24) mmol/L ABG O2 Saturation (94-97) % VBG pH (7.31-7.41) VBG pCO2 (37-51) mmHg VBG HCO3 (24-28) mmol/L Sodium 135 L (137-145) mmol/L Potassium 5.5 H (3.5-5.1) mmol/L Chloride 95 L (98-107) mmol/L Carbon Dioxide 9 L* (22-30) mmol/L BUN 62 H (9-20) mg/dL Creatinine 1.86 H (0.66-1.25) mg/dL Glucose 810 H* (74-99) mg/dL POC Glucose (mg/dL) >600 H >600 H (70-110) mg/dL Hemoglobin A1c (<=6.0) % Plasma Lactic Acid Neymar (0.7-2.0) mmol/L Phosphorus 7.4 H (2.5-4.5) mg/dL ALT (4-49) U/L Alkaline Phosphatase (38-126) U/L Urine Glucose (UA) (Negative) Urine Ketones (Negative) U Marijuana (THC) Screen (NotDetected) 12/13/22 12/13/22 12/13/22 Range/Units 21:05 21:53 22:22 WBC (3.8-10.6) k/uL Hct (39.0-53.0) % MCV (80.0-100.0) fL MCHC (31.0-37.0) g/dL Plt Count (150-450) k/uL Neutrophils # (1.3-7.7) k/uL Neutrophils # (Manual) (1.3-7.7) k/uL Monocytes # (0-1.0) k/uL Monocytes # (Manual) (0-1.0) k/uL Myelocytes # (Manual) (0) k/uL Macrocytosis APTT (22.0-30.0) sec ABG pH (7.35-7.45) ABG pCO2 (35-45) mmHg ABG pO2 (83-108) mmHg ABG HCO3 (21-25) mmol/L ABG Total CO2 (19-24) mmol/L ABG O2 Saturation (94-97) % VBG pH (7.31-7.41) VBG pCO2 (37-51) mmHg VBG HCO3 (24-28) mmol/L Sodium (137-145) mmol/L Potassium (3.5-5.1) mmol/L Chloride (98-107) mmol/L Carbon Dioxide (22-30) mmol/L BUN (9-20) mg/dL Creatinine (0.66-1.25) mg/dL Glucose (74-99) mg/dL POC Glucose (mg/dL) 579 H 464 H (70-110) mg/dL Hemoglobin A1c (<=6.0) % Plasma Lactic Acid Neymar 8.9 H* (0.7-2.0) mmol/L Phosphorus (2.5-4.5) mg/dL ALT (4-49) U/L Alkaline Phosphatase (38-126) U/L Urine Glucose (UA) (Negative) Urine Ketones (Negative) U Marijuana (THC) Screen (NotDetected) 12/13/22 12/13/22 12/14/22 Range/Units 22:25 23:22 00:04 WBC (3.8-10.6) k/uL Hct (39.0-53.0) % MCV (80.0-100.0) fL MCHC (31.0-37.0) g/dL Plt Count (150-450) k/uL Neutrophils # (1.3-7.7) k/uL Neutrophils # (Manual) (1.3-7.7) k/uL Monocytes # (0-1.0) k/uL Monocytes # (Manual) (0-1.0) k/uL Myelocytes # (Manual) (0) k/uL Macrocytosis APTT (22.0-30.0) sec ABG pH (7.35-7.45) ABG pCO2 (35-45) mmHg ABG pO2 (83-108) mmHg ABG HCO3 (21-25) mmol/L ABG Total CO2 (19-24) mmol/L ABG O2 Saturation (94-97) % VBG pH (7.31-7.41) VBG pCO2 (37-51) mmHg VBG HCO3 (24-28) mmol/L Sodium (137-145) mmol/L Potassium (3.5-5.1) mmol/L Chloride (98-107) mmol/L Carbon Dioxide 21 L (22-30) mmol/L BUN 61 H (9-20) mg/dL Creatinine 1.36 H (0.66-1.25) mg/dL Glucose 273 H (74-99) mg/dL POC Glucose (mg/dL) 383 H 415 H (70-110) mg/dL Hemoglobin A1c (<=6.0) % Plasma Lactic Acid Neymar (0.7-2.0) mmol/L Phosphorus (2.5-4.5) mg/dL ALT (4-49) U/L Alkaline Phosphatase (38-126) U/L Urine Glucose (UA) (Negative) Urine Ketones (Negative) U Marijuana (THC) Screen (NotDetected) 12/14/22 12/14/22 12/14/22 Range/Units 00:31 01:25 01:27 WBC (3.8-10.6) k/uL Hct (39.0-53.0) % MCV (80.0-100.0) fL MCHC (31.0-37.0) g/dL Plt Count (150-450) k/uL Neutrophils # (1.3-7.7) k/uL Neutrophils # (Manual) (1.3-7.7) k/uL Monocytes # (0-1.0) k/uL Monocytes # (Manual) (0-1.0) k/uL Myelocytes # (Manual) (0) k/uL Macrocytosis APTT (22.0-30.0) sec ABG pH (7.35-7.45) ABG pCO2 (35-45) mmHg ABG pO2 (83-108) mmHg ABG HCO3 (21-25) mmol/L ABG Total CO2 (19-24) mmol/L ABG O2 Saturation (94-97) % VBG pH (7.31-7.41) VBG pCO2 (37-51) mmHg VBG HCO3 (24-28) mmol/L Sodium (137-145) mmol/L Potassium (3.5-5.1) mmol/L Chloride (98-107) mmol/L Carbon Dioxide (22-30) mmol/L BUN (9-20) mg/dL Creatinine (0.66-1.25) mg/dL Glucose (74-99) mg/dL POC Glucose (mg/dL) 232 H 180 H (70-110) mg/dL Hemoglobin A1c (<=6.0) % Plasma Lactic Acid Neymar 2.3 H* (0.7-2.0) mmol/L Phosphorus (2.5-4.5) mg/dL ALT (4-49) U/L Alkaline Phosphatase (38-126) U/L Urine Glucose (UA) (Negative) Urine Ketones (Negative) U Marijuana (THC) Screen (NotDetected) 12/14/22 12/14/22 12/14/22 Range/Units 02:36 03:40 04:21 WBC (3.8-10.6) k/uL Hct (39.0-53.0) % MCV (80.0-100.0) fL MCHC (31.0-37.0) g/dL Plt Count (150-450) k/uL Neutrophils # (1.3-7.7) k/uL Neutrophils # (Manual) (1.3-7.7) k/uL Monocytes # (0-1.0) k/uL Monocytes # (Manual) (0-1.0) k/uL Myelocytes # (Manual) (0) k/uL Macrocytosis APTT (22.0-30.0) sec ABG pH (7.35-7.45) ABG pCO2 (35-45) mmHg ABG pO2 (83-108) mmHg ABG HCO3 (21-25) mmol/L ABG Total CO2 (19-24) mmol/L ABG O2 Saturation (94-97) % VBG pH (7.31-7.41) VBG pCO2 (37-51) mmHg VBG HCO3 (24-28) mmol/L Sodium (137-145) mmol/L Potassium (3.5-5.1) mmol/L Chloride (98-107) mmol/L Carbon Dioxide (22-30) mmol/L BUN (9-20) mg/dL Creatinine (0.66-1.25) mg/dL Glucose (74-99) mg/dL POC Glucose (mg/dL) 115 H 129 H (70-110) mg/dL Hemoglobin A1c 11.6 H (<=6.0) % Plasma Lactic Acid Neymar (0.7-2.0) mmol/L Phosphorus (2.5-4.5) mg/dL ALT (4-49) U/L Alkaline Phosphatase (38-126) U/L Urine Glucose (UA) (Negative) Urine Ketones (Negative) U Marijuana (THC) Screen (NotDetected) 12/14/22 12/14/22 12/14/22 Range/Units 04:21 04:21 04:40 WBC 23.0 H (3.8-10.6) k/uL Hct (39.0-53.0) % MCV (80.0-100.0) fL MCHC (31.0-37.0) g/dL Plt Count (150-450) k/uL Neutrophils # 19.4 H (1.3-7.7) k/uL Neutrophils # (Manual) (1.3-7.7) k/uL Monocytes # 1.6 H (0-1.0) k/uL Monocytes # (Manual) (0-1.0) k/uL Myelocytes # (Manual) (0) k/uL Macrocytosis APTT (22.0-30.0) sec ABG pH (7.35-7.45) ABG pCO2 (35-45) mmHg ABG pO2 (83-108) mmHg ABG HCO3 (21-25) mmol/L ABG Total CO2 (19-24) mmol/L ABG O2 Saturation (94-97) % VBG pH (7.31-7.41) VBG pCO2 (37-51) mmHg VBG HCO3 (24-28) mmol/L Sodium 136 L (137-145) mmol/L Potassium (3.5-5.1) mmol/L Chloride (98-107) mmol/L Carbon Dioxide (22-30) mmol/L BUN 58 H (9-20) mg/dL Creatinine (0.66-1.25) mg/dL Glucose 164 H (74-99) mg/dL POC Glucose (mg/dL) 133 H (70-110) mg/dL Hemoglobin A1c (<=6.0) % Plasma Lactic Acid Neymar (0.7-2.0) mmol/L Phosphorus (2.5-4.5) mg/dL ALT (4-49) U/L Alkaline Phosphatase (38-126) U/L Urine Glucose (UA) (Negative) Urine Ketones (Negative) U Marijuana (THC) Screen (NotDetected) 12/14/22 12/14/22 12/14/22 Range/Units 05:51 06:32 07:48 WBC (3.8-10.6) k/uL Hct (39.0-53.0) % MCV (80.0-100.0) fL MCHC (31.0-37.0) g/dL Plt Count (150-450) k/uL Neutrophils # (1.3-7.7) k/uL Neutrophils # (Manual) (1.3-7.7) k/uL Monocytes # (0-1.0) k/uL Monocytes # (Manual) (0-1.0) k/uL Myelocytes # (Manual) (0) k/uL Macrocytosis APTT (22.0-30.0) sec ABG pH (7.35-7.45) ABG pCO2 (35-45) mmHg ABG pO2 (83-108) mmHg ABG HCO3 (21-25) mmol/L ABG Total CO2 (19-24) mmol/L ABG O2 Saturation (94-97) % VBG pH (7.31-7.41) VBG pCO2 (37-51) mmHg VBG HCO3 (24-28) mmol/L Sodium (137-145) mmol/L Potassium (3.5-5.1) mmol/L Chloride (98-107) mmol/L Carbon Dioxide (22-30) mmol/L BUN (9-20) mg/dL Creatinine (0.66-1.25) mg/dL Glucose (74-99) mg/dL POC Glucose (mg/dL) 212 H 275 H 213 H (70-110) mg/dL Hemoglobin A1c (<=6.0) % Plasma Lactic Acid Neymar (0.7-2.0) mmol/L Phosphorus (2.5-4.5) mg/dL ALT (4-49) U/L Alkaline Phosphatase (38-126) U/L Urine Glucose (UA) (Negative) Urine Ketones (Negative) U Marijuana (THC) Screen (NotDetected) 12/14/22 12/14/22 12/14/22 Range/Units 08:35 09:37 10:27 WBC (3.8-10.6) k/uL Hct (39.0-53.0) % MCV (80.0-100.0) fL MCHC (31.0-37.0) g/dL Plt Count (150-450) k/uL Neutrophils # (1.3-7.7) k/uL Neutrophils # (Manual) (1.3-7.7) k/uL Monocytes # (0-1.0) k/uL Monocytes # (Manual) (0-1.0) k/uL Myelocytes # (Manual) (0) k/uL Macrocytosis APTT (22.0-30.0) sec ABG pH (7.35-7.45) ABG pCO2 (35-45) mmHg ABG pO2 (83-108) mmHg ABG HCO3 (21-25) mmol/L ABG Total CO2 (19-24) mmol/L ABG O2 Saturation (94-97) % VBG pH (7.31-7.41) VBG pCO2 (37-51) mmHg VBG HCO3 (24-28) mmol/L Sodium (137-145) mmol/L Potassium (3.5-5.1) mmol/L Chloride (98-107) mmol/L Carbon Dioxide (22-30) mmol/L BUN (9-20) mg/dL Creatinine (0.66-1.25) mg/dL Glucose (74-99) mg/dL POC Glucose (mg/dL) 203 H 179 H 193 H (70-110) mg/dL Hemoglobin A1c (<=6.0) % Plasma Lactic Acid Neymar (0.7-2.0) mmol/L Phosphorus (2.5-4.5) mg/dL ALT (4-49) U/L Alkaline Phosphatase (38-126) U/L Urine Glucose (UA) (Negative) Urine Ketones (Negative) U Marijuana (THC) Screen (NotDetected) Thrombosis Risk Factor Assmnt - Choose All That Apply Any of the Below Risk Factors Present?: No Other Risk Factors: No Other congenital or acquired thrombophilia - If yes, enter type in comment: No Thrombosis Risk Factor Assessment Level: Very Low Risk
[2022-12-14 14:18] LABS: Glucose,Whole Blood 135 mg/dL (70-110)
[2022-12-14 15:07] LABS: Glucose,Whole Blood 183 mg/dL (70-110)
[2022-12-14] MEDS: INSULIN ASPART (NovoLOG) 100 UNIT/ML VIAL SQ SCH ×2 (15:12→16:32)
[2022-12-14 16:16] LABS: Glucose,Whole Blood 254 mg/dL (70-110)
[2022-12-14 18:04] LABS: ALT 43 U/L (4-49); AST 31 U/L (17-59); African American GFR (CKD) >90 (>60 ml/min/1.73 sqM); Albumin 3.2 g/dL (3.5-5.0); Alkaline Phosphatase 163 U/L (38-126); Anion Gap 10 mmol/L; Blood Urea Nitrogen 27 mg/dL (9-20); Calcium 8.8 mg/dL (8.4-10.2); Carbon Dioxide 27 mmol/L (22-30); Chloride 98 mmol/L (98-107); Glucose 177 mg/dL (74-99); Non-African American GFR(CKD) >90 (>60 ml/min/1.73 sqM); Potassium 3.8 mmol/L (3.5-5.1); Sodium 135 mmol/L (137-145); Total Bilirubin 0.4 mg/dL (0.2-1.3); Total Protein 5.7 g/dL (6.3-8.2)
[2022-12-14 20:10] LABS: Glucose,Whole Blood 76 mg/dL (70-110)
[2022-12-14 21:55] LABS: Glucose,Whole Blood 50 mg/dL (70-110)
[2022-12-14 22:14] LABS: Glucose,Whole Blood 134 mg/dL (70-110)
[2022-12-14] MEDS ORDERED: Potassium Replacement Protocol 1 EACH MISC MISCELLANE PRN (23:46)
[2022-12-15 04:27] LABS: African American GFR (CKD) >90 (>60 ml/min/1.73 sqM); Anion Gap 2 mmol/L; Blood Urea Nitrogen 17 mg/dL (9-20); Calcium 8.8 mg/dL (8.4-10.2); Carbon Dioxide 35 mmol/L (22-30); Chloride 99 mmol/L (98-107); Non-African American GFR(CKD) >90 (>60 ml/min/1.73 sqM); Potassium 3.6 mmol/L (3.5-5.1); Sodium 136 mmol/L (137-145)
[2022-12-15 04:32] LABS: Glucose 40 mg/dL (74-99)
[2022-12-15 04:51] LABS: Glucose,Whole Blood 80 mg/dL (70-110)
[2022-12-15 05:07] LABS: Glucose,Whole Blood 72 mg/dL (70-110)
[2022-12-15 05:58] LABS: Glucose,Whole Blood 167 mg/dL (70-110)
[2022-12-15 06:33] LABS: Glucose,Whole Blood 171 mg/dL (70-110)
[2022-12-15] MEDS ORDERED: POTASSIUM CHLORIDE ER 20 MEQ TAB.ER PO SCH ×2 (07:00)
[2022-12-15] MEDS: SODIUM CHLORIDE 0.9% 1,000 ML IV SCH (07:22)
[2022-12-15] MEDS: INSULIN REGULAR 100 UNIT in SODIUM CHLORIDE 0.9% 100 ML IV SCH (07:22)
[2022-12-15] MEDS: carvediloL 6.25 MG TAB PO SCH ×2 (07:32→17:19)
[2022-12-15] MEDS: INSULIN ASPART (NovoLOG) 100 UNIT/ML VIAL SQ SCH ×6 (07:33→20:38)
[2022-12-15] MEDS: HEPARIN SODIUM,PORCINE/PF 5,000 UNIT/0.5 ML SYRINGE SQ SCH ×3 (08:06→17:17)
[2022-12-15] MEDS: INSULIN DETEMIR (LEVEMIR) 100 UNIT/ML SYR SQ SCH (08:06)
--- NOTE | 2022-12-15 08:58 | P.PN ---
Subjective Progress Note Date: 12/15/22 Evaluation of 12/15/2022, the patient is awake and alert and communicating. No significant issues. Blood sugar from this morning was around 40. The patient was given breakfast. Romulus juice was also given. Repeat sugar was 171. The rest of the blood work from today shows a sodium level of 136, potassium levels at 3.6, BUN is at 70 with a creatinine of 0.5. Serum bicarb is at 35. He is on Levemir insulin 24 units in addition to a sliding scale coverage. Insulin drip was discontinued yesterday. He is afebrile for now. Hemodynamically stable. His HbA1c was 11.6. Objective - Vital Signs Vital signs: Vital Signs Temp 97.7 F 12/15/22 08:00 Pulse 65 12/15/22 08:00 Resp 17 12/15/22 08:00 BP 107/84 12/15/22 08:00 Pulse Ox 97 12/15/22 08:00 FiO2 Intake & Output 12/14/22 12/15/22 12/15/22 18:59 06:59 18:59 Intake Total 2981.653 225 118 Output Total 2650 2850 1400 Balance 331.653 -7805 -1282 Weight 53.2 kg 57 kg Intake: IV 1500 D5-0.45% NaCl with KCl 1500 20Meq/l 1,000 ml @ 150 mls/hr IV .[id number] [facility] Rx# :[id number] Intake, IV Titration 20.653 Amount Insulin Regular 100 unit 20.653 In Sodium Chloride 0.9% 100 ml @ 0.1 UNITS/KG/HR 5.498 mls/hr IV .[id number] [facility] Rx#:[id number] Oral 1461 225 118 Output: Urine 2650 2850 1400 Other: Voiding Method Urinal Urinal # Voids 1 - Exam GENERAL EXAM: Lethargic and intermittently responsive to questioning. In no acute distress. HEAD: Normocephalic and atraumatic EYES: Normal reaction of pupils, equal size. NOSE: Clear with pink turbinates. THROAT: No erythema or exudates. NECK: No masses, no JVD. CHEST: No chest wall deformity. LUNGS: Equal air entry with no crackles, wheeze, rhonchi or dullness. On room air. No conversational dyspnea or accessory muscle use.. CVS: S1 and S2 normal with no audible murmur, regular rhythm. No extra heart sounds. Heart rate is currently 118 bpm. ABDOMEN: No hepatosplenomegaly, active bowel sounds, no guarding or rigidity. SPINE: No scoliosis or deformity SKIN: No rashes CENTRAL NERVOUS SYSTEM: No focal deficits, tone is normal in all 4 extremities. EXTREMITIES: There is no peripheral edema, clubbing, or cyanosis. Peripheral pu lses are intact. - Labs CBC & Chem 7: 12/14/22 04:21 12/15/22 03:37 Labs: Abnormal Lab Results - Last 24 Hours (Table) 12/14/22 12/14/22 12/14/22 Range/Units 09:37 10:27 11:54 Sodium (137-145) mmol/L Carbon Dioxide (22-30) mmol/L BUN (9-20) mg/dL Creatinine (0.66-1.25) mg/dL Glucose (74-99) mg/dL POC Glucose (mg/dL) 179 H 193 H 185 H (70-110) mg/dL Alkaline Phosphatase (38-126) U/L Total Protein (6.3-8.2) g/dL Albumin (3.5-5.0) g/dL 12/14/22 12/14/22 12/14/22 Range/Units 12:48 14:16 15:06 Sodium (137-145) mmol/L Carbon Dioxide (22-30) mmol/L BUN (9-20) mg/dL Creatinine (0.66-1.25) mg/dL Glucose (74-99) mg/dL POC Glucose (mg/dL) 151 H 135 H 183 H (70-110) mg/dL Alkaline Phosphatase (38-126) U/L Total Protein (6.3-8.2) g/dL Albumin (3.5-5.0) g/dL 12/14/22 12/14/22 12/14/22 Range/Units 16:14 17:23 21:54 Sodium 135 L (137-145) mmol/L Carbon Dioxide (22-30) mmol/L BUN 27 H (9-20) mg/dL Creatinine (0.66-1.25) mg/dL Glucose 177 H (74-99) mg/dL POC Glucose (mg/dL) 254 H 50 L (70-110) mg/dL Alkaline Phosphatase 163 H (38-126) U/L Total Protein 5.7 L (6.3-8.2) g/dL Albumin 3.2 L (3.5-5.0) g/dL 12/14/22 12/15/22 12/15/22 Range/Units 22:13 03:37 05:56 Sodium 136 L (137-145) mmol/L Carbon Dioxide 35 H (22-30) mmol/L BUN (9-20) mg/dL Creatinine 0.50 L (0.66-1.25) mg/dL Glucose 40 L* (74-99) mg/dL POC Glucose (mg/dL) 134 H 167 H (70-110) mg/dL Alkaline Phosphatase (38-126) U/L Total Protein (6.3-8.2) g/dL Albumin (3.5-5.0) g/dL 12/15/22 Range/Units 06:31 Sodium (137-145) mmol/L Carbon Dioxide (22-30) mmol/L BUN (9-20) mg/dL Creatinine (0.66-1.25) mg/dL Glucose (74-99) mg/dL POC Glucose (mg/dL) 171 H (70-110) mg/dL Alkaline Phosphatase (38-126) U/L Total Protein (6.3-8.2) g/dL Albumin (3.5-5.0) g/dL Assessment and Plan Assessment: Diabetic ketoacidosis, recovered Diabetes mellitus type 1, poorly controlled blood sugar within HbA1c of 11.5 Acute anion gap metabolic acidosis, secondary to above and a component of lactic acidosis, recovered and anion gap is closed Acute kidney injury, prerenal, secondary to dehydration, recovered Hyperkalemia, improved, improved and the potassium level was low and was replaced. Acute toxic metabolic encephalopathy, recovered Leukocytosis, no obvious infectious etiology, reactive Diabetes mellitus type 1 Plan: Continue Levemir insulin 24 units and add a sliding scale coverage Advance diet Ambulate Diabetic education Transferred to medical floor
[2022-12-15 11:05] LABS: Glucose,Whole Blood 104 mg/dL (70-110)
--- NOTE | 2022-12-15 14:34 | P.PN ---
Subjective Progress Note Date: 12/15/22 patient is a 32-year-old gentleman with past medical history significant for insulin-dependent diabetes mellitus was brought to the ER for altered level of consciousness. Patient lives with his with whom he is but they live in the same house, who found her to be unresponsive. Patient multiple prior visits to the ER and hospital for DKA because of noncompliance. Patient unable to give any history at that time. Initial lab work in the ER showed WBC count 6.2, hemoglobin 15.2, platelet count 1516, sodium 122, potassium 7.9, BUN 62, creatinine 2.56 Patient was started on insulin drip and was admitted to ICU 12/15. Patient seen and examined. Patient tolerated regular diet, off the in sulin drip. REVIEW OF SYSTEMS: CONSTITUTIONAL: No fever, no malaise,. CARDIOVASCULAR: No chest pain, no palpitations, no syncope. PULMONARY: No shortness of breath, no cough, GASTROINTESTINAL: No diarrhea, no nausea, no vomiting, no abdominal pain. NEUROLOGICAL: No headaches, no weakness, PHYSICAL EXAMINATION: GENERAL: The patient is alert and oriented x3, not in any acute distress. Well developed, well nourished. HEENT: Pupils are round and equally reacting to light. EOMI. No scleral icterus. No conjunctival pallor. Normocephalic, atraumatic. No pharyngeal erythema. No thyromegaly. CARDIOVASCULAR: S1 and S2 present. No murmurs, rubs, or gallops. PULMONARY: Chest is clear to auscultation, no wheezing or crackles. ABDOMEN: Soft, nontender, nondistended, normoactive bowel sounds. No palpable organomegaly. MUSCULOSKELETAL: No joint swelling or deformity. EXTREMITIES: No cyanosis, clubbing, or pedal edema. NEUROLOGICAL: Gross neurological examination did not reveal any focal deficits. SKIN: No rashes. Assessment and plan Diabetic ketoacidosis. Acute anion gap metabolic acidosis, secondary to above and a component of lactic acidosis Hyponatremia Hyperkalemia Acute kidney injury Acute toxic metabolic encephalopathy Leukocytosis, no obvious infectious etiology Monitor vital signs Monitor CBC Monitor CMP diabetic diet Monitor blood sugar levels, Continue Levemir and sliding scale insulin Transfer out of ICU Labs and medication were reviewed.. Continue same treatment. Continue with symptomatic treatment. Resume home medication. Monitor labs and vitals. DVT and GI prophylaxis. Further recommendations as per clinical course of the patient Objective - Vital Signs Vital signs: Vital Signs Temp 97.7 F 12/15/22 08:00 Pulse 81 12/15/22 09:00 Resp 17 12/15/22 09:00 BP 115/87 12/15/22 09:00 Pulse Ox 98 12/15/22 09:00 FiO2 Intake & Output 12/14/22 12/15/22 12/15/22 18:59 06:59 18:59 Intake Total 2981.653 225 608 Output Total 2650 2850 1950 Balance 331.595 -7266 -9478 Weight 53.2 kg 57 kg Intake: IV 1500 D5-0.45% NaCl with KCl 1500 20Meq/l 1,000 ml @ 150 mls/hr IV .[id number] [facility] Rx# :[id number] Intake, IV Titration 20.653 Amount Insulin Regular 100 unit 20.653 In Sodium Chloride 0.9% 100 ml @ 0.1 UNITS/KG/HR 5.498 mls/hr IV .[id number] [facility] Rx#:[id number] Oral 1461 225 608 Output: Urine 2650 2850 1950 Other: Voiding Method Urinal Urinal # Voids 1 - Labs CBC & Chem 7: 12/14/22 04:21 12/15/22 03:37 Labs: Abnormal Lab Results - Last 24 Hours (Table) 12/14/22 12/14/22 12/14/22 Range/Units 15:06 16:14 17:23 Sodium 135 L (137-145) mmol/L Carbon Dioxide (22-30) mmol/L BUN 27 H (9-20) mg/dL Creatinine (0.66-1.25) mg/dL Glucose 177 H (74-99) mg/dL POC Glucose (mg/dL) 183 H 254 H (70-110) mg/dL Alkaline Phosphatase 163 H (38-126) U/L Total Protein 5.7 L (6.3-8.2) g/dL Albumin 3.2 L (3.5-5.0) g/dL 12/14/22 12/14/22 12/15/22 Range/Units 21:54 22:13 03:37 Sodium 136 L (137-145) mmol/L Carbon Dioxide 35 H (22-30) mmol/L BUN (9-20) mg/dL Creatinine 0.50 L (0.66-1.25) mg/dL Glucose 40 L* (74-99) mg/dL POC Glucose (mg/dL) 50 L 134 H (70-110) mg/dL Alkaline Phosphatase (38-126) U/L Total Protein (6.3-8.2) g/dL Albumin (3.5-5.0) g/dL 12/15/22 12/15/22 Range/Units 05:56 06:31 Sodium (137-145) mmol/L Carbon Dioxide (22-30) mmol/L BUN (9-20) mg/dL Creatinine (0.66-1.25) mg/dL Glucose (74-99) mg/dL POC Glucose (mg/dL) 167 H 171 H (70-110) mg/dL Alkaline Phosphatase (38-126) U/L Total Protein (6.3-8.2) g/dL Albumin (3.5-5.0) g/dL
[2022-12-15 16:32] LABS: Glucose,Whole Blood 151 mg/dL (70-110)
[2022-12-15 20:34] LABS: Glucose,Whole Blood 387 mg/dL (70-110)
[2022-12-16] MEDS: HEPARIN SODIUM,PORCINE/PF 5,000 UNIT/0.5 ML SYRINGE SQ SCH ×2 (00:12→08:21)
[2022-12-16 02:07] LABS: Glucose,Whole Blood 136 mg/dL (70-110)
[2022-12-16 04:37] LABS: Basophils % (A) 0 %; Eosinophils # (A) 0.1 k/uL (0-0.7); Eosinophils % (A) 1 %; HCT 38.3 % (39.0-53.0); HGB 12.3 gm/dL (13.0-17.5); Lymphocytes # (A) 2.5 k/uL (1.0-4.8); Lymphocytes % (A) 37 %; MCH 31.4 pg (25.0-35.0); MCHC 32.2 g/dL (31.0-37.0); MCV 97.5 fL (80.0-100.0); Mean Platelet Volume 8.4; Monocytes # (A) 0.4 k/uL (0-1.0); Monocytes % (A) 6 %; Neutrophils # (A) 3.6 k/uL (1.3-7.7); Neutrophils % (A) 53 %; Platelet Count 277 k/uL (150-450); RBC 3.92 m/uL (4.30-5.90); RDW 14.4 % (11.5-15.5); WBC 6.8 k/uL (3.8-10.6)
[2022-12-16 04:50] LABS: ALT 66 U/L (4-49); AST 119 U/L (17-59); African American GFR (CKD) >90 (>60 ml/min/1.73 sqM); Albumin 3.1 g/dL (3.5-5.0); Alkaline Phosphatase 174 U/L (38-126); Anion Gap 5 mmol/L; Blood Urea Nitrogen 17 mg/dL (9-20); Calcium 8.4 mg/dL (8.4-10.2); Carbon Dioxide 28 mmol/L (22-30); Chloride 97 mmol/L (98-107); Glucose 280 mg/dL (74-99); Non-African American GFR(CKD) >90 (>60 ml/min/1.73 sqM); Potassium 4.7 mmol/L (3.5-5.1); Sodium 130 mmol/L (137-145); Total Bilirubin 0.4 mg/dL (0.2-1.3); Total Protein 5.6 g/dL (6.3-8.2)
[2022-12-16 06:07] LABS: Glucose,Whole Blood 331 mg/dL (70-110)
[2022-12-16] MEDS: INSULIN ASPART (NovoLOG) 100 UNIT/ML VIAL SQ SCH ×3 (06:28→12:30)
[2022-12-16] MEDS: carvediloL 6.25 MG TAB PO SCH (06:28)
[2022-12-16] MEDS: INSULIN DETEMIR (LEVEMIR) 100 UNIT/ML SYR SQ SCH (06:30)
[2022-12-16] MEDS ORDERED: CALCIUM CARBONATE 500 MG CHEWABLE PO PRN (08:27)
[2022-12-16 08:37] VITALS: BP 112/62; PULSE 88; RESP 16; TEMP 98.2
--- NOTE | 2022-12-16 09:11 | P.PN ---
Subjective Progress Note Date: 12/16/22 Evaluation of 12/15/2022, the patient is awake and alert and communicating. No significant issues. Blood sugar from this morning was around 40. The patient was given breakfast. Turton juice was also given. Repeat sugar was 171. The rest of the blood work from today shows a sodium level of 136, potassium levels at 3.6, BUN is at 70 with a creatinine of 0.5. Serum bicarb is at 35. He is on Levemir insulin 24 units in addition to a sliding scale coverage. Insulin drip was discontinued yesterday. He is afebrile for now. Hemodynamically stable. His HbA1c was 11.6. 12/16/2022, the patient is stable on room air oxygen, he has no specific complaints. He is on long-acting insulin for now,And the patient is taking Levemir insulin 24 units daily along with NovoLog 10 units with meals plus a sliding scale coverage. His blood work from today shows edematous count of 6.8, hemoglobin 12.3 and a platelet count of 277. He is at 70 with a creatinine of 0.5. Sodium is at 1:30. LFTs are slightly abnormal with an AST of 119, ALT of 66 and an alkaline phosphatase of 174. Objective - Vital Signs Vital signs: Vital Signs Temp 98.2 F 12/16/22 08:00 Pulse 88 12/16/22 08:00 Resp 16 12/16/22 08:00 BP 112/62 12/16/22 08:00 Pulse Ox 95 12/16/22 08:00 FiO2 Intake & Output 12/15/22 12/16/22 12/16/22 18:59 06:59 18:59 Intake Total 171 949 2475 Output Total 2450 Balance -4520 013 3462 Intake: IV 10 Invasive Line 1 10 Oral 277 995 0435 Output: Urine 2450 Other: Voiding Method Urinal Urinal # Voids 1 1 - Exam GENERAL EXAM: Awake and alert. In no acute distress. HEAD: Normocephalic and atraumatic EYES: Normal reaction of pupils, equal size. NOSE: Clear with pink turbinates. THROAT: No erythema or exudates. NECK: No masses, no JVD. CHEST: No chest wall deformity. LUNGS: Equal air entry with no crackles, wheeze, rhonchi or dullness. On room air. No conversational dyspnea or accessory muscle use.. CVS: S1 and S2 normal with no audible murmur, regular rhythm. No extra heart sounds. ABDOMEN: No hepatosplenomegaly, active bowel sounds, no guarding or rigidity. SPINE: No scoliosis or deformity SKIN: No rashes CENTRAL NERVOUS SYSTEM: No focal deficits, tone is normal in all 4 extremities. EXTREMITIES: There is no peripheral edema, clubbing, or cyanosis. Peripheral pulses are intact. - Labs CBC & Chem 7: 12/16/22 04:05 12/16/22 04:05 Labs: Abnormal Lab Results - Last 24 Hours (Table) 12/15/22 12/15/22 12/16/22 Range/Units 16:30 20:33 02:05 RBC (4.30-5.90) m/uL Hgb (13.0-17.5) gm/dL Hct (39.0-53.0) % Sodium (137-145) mmol/L Chloride (98-107) mmol/L Creatinine (0.66-1.25) mg/dL Glucose (74-99) mg/dL POC Glucose (mg/dL) 151 H 387 H 136 H (70-110) mg/dL AST (17-59) U/L ALT (4-49) U/L Alkaline Phosphatase (38-126) U/L Total Protein (6.3-8.2) g/dL Albumin (3.5-5.0) g/dL 12/16/22 12/16/22 12/16/22 Range/Units 04:05 04:05 06:06 RBC 3.92 L (4.30-5.90) m/uL Hgb 12.3 L (13.0-17.5) gm/dL Hct 38.3 L (39.0-53.0) % Sodium 130 L (137-145) mmol/L Chloride 97 L (98-107) mmol/L Creatinine 0.53 L (0.66-1.25) mg/dL Glucose 280 H (74-99) mg/dL POC Glucose (mg/dL) 331 H (70-110) mg/dL AST 119 H (17-59) U/L ALT 66 H (4-49) U/L Alkaline Phosphatase 174 H (38-126) U/L Total Protein 5.6 L (6.3-8.2) g/dL Albumin 3.1 L (3.5-5.0) g/dL Assessment and Plan Assessment: Diabetic ketoacidosis, recovered Diabetes mellitus type 1, poorly controlled blood sugar within HbA1c of 11.5 Acute anion gap metabolic acidosis, secondary to above and a component of lactic acidosis, recovered and anion gap is closed Acute kidney injury, prerenal, secondary to dehydration, recovered Hyperkalemia, improved, improved and the potassium level was low and was replaced. Acute toxic metabolic encephalopathy, recovered Leukocytosis, no obvious infectious etiology, reactive Diabetes mellitus type 1 Abnormal LFTs, without any symptoms of abdominal pain at this point in time. Plan: Continue Levemir insulin 24 units and add a sliding scale coverage, the patient is also on NovoLog 10 units with meals and a sliding scale coverage. I noted that the morning blood sugar was elevated. However, his blood sugar monitoring yesterday showed that he was running low throughout the day. His oral intake is still somewhat diminished which probably is contributing to his lower blood sugars. I will suggest repeating the Levemir up to 30 units and monitoring his postprandial blood sugars and decide if any short-acting is needed. LFTs are abnormal and we'll proceed with a hepatitis profile and obtain an ultrasound of the gallbladder and the liver Advance diet Ambulate Diabetic education Transferred to medical floor
[2022-12-16] MEDS ORDERED: INSULIN DETEMIR (LEVEMIR) 100 UNIT/ML SYR SQ SCH (09:30)
[2022-12-16 11:11] VITALS: BMI 18.5
[2022-12-16 11:37] LABS: Glucose,Whole Blood 101 mg/dL (70-110)
--- NOTE | 2022-12-16 11:52 | US ---
EXAMINATION TYPE: US liver DATE OF EXAM: 12/16/2022 Exam done portable in ICU COMPARISON: US 2022, CT scan 09/26/2022 CLINICAL INDICATION: Male, 32 years old with history of elevated liver enzymes; TECHNIQUE: Multiple sonographic images of the right upper quadrant are obtained. FINDINGS: EXAM MEASUREMENTS: Liver Length: 19.8 cm Gallbladder Wall: 0.2 cm CBD: 0.4 cm Right Kidney: 12.5 x 4.8 x 5.1 cm Pancreas: visualized portions wnl, limited by overlying midline bowel gas Liver: enlarged, 2.2 x 1.3 x 1.6cm hyperechoic area seen left lobe Gallbladder: contracted, appears wnl as seen, patient not NPO Evidence for sonographic Hastings's sign: no CBD: visualized portions wnl, limited by overlying bowel gas Right Kidney: wnl IMPRESSION: 1. Hepatomegaly measuring approximately 19.8 cm. There is a 2.2 cm hyperechoic lesion within the left lobe of liver could represent an area of fatty infiltration as noted by recent CT scan. Would recomm end MRI for to exclude other etiologies given the finding was not present on the recent ultrasound of 07/19/2022.
--- NOTE | 2022-12-16 12:59 | P.DS ---
Providers Date of admission: 12/13/22 17:26 Expected date of discharge: 12/16/22 Attending physician: Wayne Moe Consults: 12/13/22 23:18 Consult Physician Stat Consulting Provider: Montserrat Blair Consult Reason/Comments: Side Panel Padder Do you want consulting provider notified?: Already Contacted Primary care physician: Michelet Aguirre Hospital Course: Discharge diagnoses; Diabetic ketoacidosis. Acute anion gap metabolic acidosis, secondary to above and a component of lactic acidosis Hyponatremia Hyperkalemia Acute kidney injury Acute toxic metabolic encephalopathy Leukocytosis, no obvious infectious etiology Hospital course; patient is a 32-year-old gentleman with past medical history significant for insulin-dependent diabetes mellitus was brought to the ER for altered level of consciousness. Patient lives with his with whom he is but they live in the same house, who found her to be unresponsive. Patient multiple prior visits to the ER and hospital for DKA because of noncompliance. Patient unable to give any history at that time. Initial lab work in the ER showed WBC count 6.2, hemoglobin 15.2, platelet count 1516, sodium 122, potassium 7.9, BUN 62, creatinine 2.56 Patient was started on insulin drip and was admitted to ICU 12/15. Patient seen and examined. Patient tolerated regular diet, off the insulin drip. 12/16. Patient seen and examined. Tolerating diet. Blood sugar is better controlled. Had complained of heartburn. Ultrasound abdominal done showed hepatomegaly, there is a 2.2 cm hypoechoic lesion within the left lobe of liver cortex and an area of fatty infiltration as noted by recent computed tomography scan. Recommend MRI. Instructions given to patient to talk to PCP to have have an outpatient MRI of liver PHYSICAL EXAMINATION: GENERAL: The patient is alert and oriented x3, not in any acute distress. Well developed, well nourished. HEENT: Pupils are round and equally reacting to light. EOMI. No scleral icterus. No conjunctival pallor. Normocephalic, atraumatic. No pharyngeal erythema. No th yromegaly. CARDIOVASCULAR: S1 and S2 present. No murmurs, rubs, or gallops. PULMONARY: Chest is clear to auscultation, no wheezing or crackles. ABDOMEN: Soft, nontender, nondistended, normoactive bowel sounds. No palpable organomegaly. MUSCULOSKELETAL: No joint swelling or deformity. EXTREMITIES: No cyanosis, clubbing, or pedal edema. NEUROLOGICAL: Gross neurological examination did not reveal any focal deficits. SKIN: No rashes. Patient Condition at Discharge: Good Plan - Discharge Summary Discharge Rx Participant: No New Discharge Prescriptions: New carvediloL [Coreg] 6.25 mg PO BID-W/MEALS #60 tab Continue Insulin Aspart [NovoLOG Flexpen] 10 units SQ TID-W/MEALS Insulin Detemir [Levemir Flextouch Pen] 36 units SQ DAILY Discontinued carvediloL [Coreg] 3.125 mg PO BID-W/MEALS Discharge Medication List Insulin Aspart [NovoLOG Flexpen] 10 units SQ TID-W/MEALS 01/31/22 [History] Insulin Detemir [Levemir Flextouch Pen] 36 units SQ DAILY 09/26/22 [History] carvediloL [Coreg] 6.25 mg PO BID-W/MEALS #60 tab 12/16/22 [Rx] Follow up Appointment(s)/Referral(s): Michelet Aguirre MD [Primary Care Provider] - 1-2 days Patient Instructions/Handouts: Diabetic Ketoacidosis (DC), Hypoglycemia in a Person with Diabetes (ED), What is Insulin (ED), Insulin Pens (ED), Managing Diabetes During Sick Days (ED) Activity/Diet/Wound Care/Special Instructions: Patient needs MRI liver, outpatient follow with PCP to order that Discharge Disposition: HOME SELF-CARE
== END 2022-12-16 14:14 | disposition home or self-care (01) | DRG 420 ==
LOC: EC 14:20 → 2SICU 17:26
PROVIDERS: ADMIT Hospitalist; ATTEND Hospitalist
DX: E10.10 Type 1 diabetes mellitus with ketoacidosis without coma (principal); E87.1 Hypo-osmolality and hyponatremia; E87.5 Hyperkalemia; N17.9 Acute kidney failure, unspecified; G92.8 Other toxic encephalopathy; F31.9 Bipolar disorder, unspecified; F41.9 Anxiety disorder, unspecified; F17.210 Nicotine dependence, cigarettes, uncomplicated; I10 Essential (primary) hypertension; E78.5 Hyperlipidemia, unspecified; J44.9 Chronic obstructive pulmonary disease, unspecified; M19.90 Unspecified osteoarthritis, unspecified site; E86.0 Dehydration; K31.84 Gastroparesis; Z86.14 Personal history of Methicillin resistant Staphylococcus aureus infection; G43.909 Migraine, unspecified, not intractable, without status migrainosus; M19.042 Primary osteoarthritis, left hand; M19.041 Primary osteoarthritis, right hand; M17.0 Bilateral primary osteoarthritis of knee; E10.43 Type 1 diabetes mellitus with diabetic autonomic (poly)neuropathy; K76.0 Fatty (change of) liver, not elsewhere classified; Z79.4 Long term (current) use of insulin; Z82.49 Family history of ischemic heart disease and other diseases of the circulatory system; Z91.199 Patient's noncompliance with other medical treatment and regimen due to unspecified reason; Z91.040 Latex allergy status
CPT/HCPCS: 36415; 36600; 71046; 76705; 80048; 80051; 80053; 80306; 80320; 81003; 82009; 82565; 82803; 82805; 82947; 83036; 83605; 84100; 84520; 85025; 85610; 85730; 93005; 94644; 96361; 96374; 99291

== ENCOUNTER 2023-04-18 16:22 | Inpatient (IN) | payer OTHER ==
[2023-04-18 16:27] LABS: Glucose,Whole Blood >600 mg/dL (70-110)
[2023-04-18] MEDS ORDERED: SODIUM CHLORIDE 0.9% 500 ML 500 ML IV STA ×2 (16:44→20:23)
[2023-04-18] MEDS ORDERED: SODIUM CHLORIDE 0.9% 1,000 ML IV STA ×3 (16:44→20:23)
[2023-04-18] MEDS ORDERED: ONDANSETRON 4 MG/2 ML VIAL IVP STA (16:44)
--- NOTE | 2023-04-18 17:37 | ED ---
Recheck HPI - General Chief Complaint: Nausea/Vomiting/Diarrhea Stated Complaint: high sugar #'s Time Seen by Provider: 04/18/23 16:42 Source: patient, family, RN notes reviewed, old records reviewed Mode of arrival: wheelchair Limitations: no limitations - History of Present Illness Initial Comments: This is a 33-year-old male to the emergency department for evaluation increased patient Dese for evaluation of severe weakness nausea vomiting diarrhea with history of diabetes. Severely elevated blood sugar at home patient is a poor story mildly altered and having difficulty catching his breath MD Complaint: abnormal lab (Elevated blood sugar) -: days(s) Returns Today for: Called Because of Abnormal Lab/Test, persistent/worsening pain related to initial visit Symptoms Since Prior Visit: no new symptoms Context: called for abnormal lab result Associated Symptoms: shortness of breath, nausea, abdominal pain Treatments Prior to Arrival: other (0) - Related Data Home Medications Medication Instructions Recorded Confirmed INSULIN ASPART (NovoLOG) [NovoLOG 10 unit SQ AC-TID 04/18/23 04/18/23 (formulary)] Insulin Glargine,Hum.rec.anlog 45 units SQ HS 04/18/23 04/18/23 [Lantus Solostar Pen] carvediloL [Coreg] 6.25 mg PO BID 04/18/23 04/18/23 Previous Rx's Medication Instructions Recorded Famotidine [Pepcid] 40 mg PO DAILY 30 Days #30 tablet 03/04/23 Allergies Allergy/AdvReac Type Severity Reaction Status Date / Time latex Allergy Rash/Hives Verified 04/18/23 17:59 Review of Systems ROS Statement: Those systems with pertinent positive or pertinent negative responses have been documented in the HPI. ROS Other: All systems not noted in ROS Statement are negative. Past Medical History Past Medical History: Asthma, Diabetes Mellitus, Hyperlipidemia, Hypertension, Osteoarthritis (OA) Additional Past Medical History / Comment(s): IDDM type I, diabetic gastroparesis, neuropathy bilateral hands/fingers, migraines, arthrtitis fingers/knees, past R hand and L femur fractures. Previous DKA History of Any Multi-Drug Resistant Organisms: MRSA Date of last positivie culture/infection: 04/26/2014 MDRO Source:: Face Past Surgical History: Ear Surgery, Orthopedic Surgery Additional Past Surgical History / Comment(s): R hand surgery d/t fracture- pinned and pins since removed, L leg femur fracture with pin that eventually was removed, bilateral myringotomy with tubes/ear drum repairs.; Left pinky removal Past Anesthesia/Blood Transfusion Reactions: No Reported Reaction Past Psychological History: Anxiety, Bipolar, Depression Smoking Status: Current every day smoker Past Alcohol Use History: None Reported Past Drug Use History: Marijuana - Past Family History Father Family Medical History: Hyperlipidemia, Hypertension, Myocardial Infarction ([place]) Mother Family Medical History: COPD Additional Family Medical History / Comment(s): home O2, Brother(s) Family Medical History: No Reported History General Exam Limitations: no limitations General appearance: alert, anxious, in distress Head exam: Present: atraumatic, normocephalic, normal inspection Eye exam: Present: normal appearance, PERRL, EOMI. Absent: scleral icterus, conjunctival injection, periorbital swelling ENT exam: Present: normal exam, mucous membranes dry Neck exam: Present: normal inspection. Absent: tenderness, meningismus, lymphadenopathy Respiratory exam: Present: respiratory distress. Absent: wheezes, rales, rhonchi, stridor Cardiovascular Exam: Present: normal rhythm, tachycardia, normal heart sounds. Absent: systolic murmur, diastolic murmur, rubs, gallop, clicks GI/Abdominal exam: Present: soft, normal bowel sounds. Absent: distended, tenderness, guarding, rebound, rigid Extremities exam: Present: normal inspection, full ROM, normal capillary refill. Absent: tenderness, pedal edema, joint swelling, calf tenderness Back exam: Present: normal inspection Neurological exam: Present: alert, oriented X3, CN II-XII intact Psychiatric exam: Present: normal affect, normal mood Skin exam: Present: warm, dry, intact, normal color. Absent: rash Course Vital Signs 04/18/23 04/18/23 04/18/23 16:23 18:00 19:20 Temperature 97.9 F 97.2 F L Pulse Rate 139 H 130 H 117 H Respiratory 18 18 20 Rate Blood Pressure 134/99 150/110 O2 Sat by Pulse 100 100 99 Oximetry 04/18/23 04/19/23 04/19/23 21:21 00:19 02:21 Temperature Pulse Rate 110 H 114 H 90 Respiratory 19 19 17 Rate Blood Pressure 142/94 145/104 O2 Sat by Pulse 98 99 99 Oximetry 04/19/23 04/19/23 04/19/23 03:21 04:21 05:26 Temperature Pulse Rate 99 93 97 Respiratory 17 19 19 Rate Blood Pressure 127/86 152/103 146/89 O2 Sat by Pulse 99 99 100 Oximetry 04/19/23 04/19/23 04/19/23 06:34 07:34 08:30 Temperature 98.2 F Pulse Rate 97 92 84 Respiratory 17 18 18 Rate Blood Pressure 137/88 123/77 130/80 O2 Sat by Pulse 98 98 98 Oximetry 04/19/23 04/19/23 04/19/23 09:33 10:45 11:40 Temperature 98.6 F Pulse Rate 90 102 H 108 H Respiratory 18 16 18 Rate Blood Pressure 129/81 146/99 136/94 O2 Sat by Pulse 98 100 100 Oximetry 04/19/23 04/19/23 14:30 16:26 Temperature Pulse Rate 82 89 Respiratory 18 18 Rate Blood Pressure 103/68 104/70 O2 Sat by Pulse 99 100 Oximetry - Reevaluation(s) Reevaluation #1: 04/18/23 22:43 Medical records reviewed Reevaluation #2: 04/18/23 22:43 patient symptoms mildly starting to improve Reevaluation #3: 04/18/23 22:43 Patient informed results questions answered Reevaluation #4: 04/18/23 22:44 Was pt. sent in by a medical professional or institution (, PA, CONTINUOUS IMPROVEMENT ANALYST, urgent care, hospital, or skilled nursing...) When possible be specific @ -no Did you speak to anyone other than the patient for history (EMS, parent, family, police, friend...)? What history was obtained from this source @ -no Did you review nursing and triage notes (agree or disagree)? Why? @ -agree Are old charts reviewed (outside hosp., previous admission, EMS record, old EKG, old radiological studies, urgent care reports/EKG's, skilled nursing records)? Report findings @ -yes Differential Diagnosis (chest pain, altered mental status, abdominal pain women, abdominal pain men, vaginal bleeding, weakness, fever, dyspnea, syncope, headache, dizziness, GI bleed, back pain, seizure, CVA, palpatations, mental health, musculoskeletal)? @ -prior EKG interpreted by me (3pts min.). @ -yes X-rays interpreted by me (1pt min.). @ -no CT interpreted by me (1pt min.). @ -no U/S interpreted by me (1pt. min.). @ -no What testing was considered but not performed or refused? (CT, X-rays, U/S, labs)? Why? @ -none What meds were considered but not given or refused? Why? @ -none Did you discuss the management of the patient with other professionals (professionals i.e. , PA, CONTINUOUS IMPROVEMENT ANALYST, lab, RT, psych nurse, medical social worker, appraiser auditor, teacher, food safety officer, casework manager)? Give summary @ -no Was smoking cessation discussed for >3mins.? @ -no Was critical care preformed (if so, how long)? @ -yes Were there social determinants of health that impacted care today? How? (Homelessness, low income, unemployed, alcoholism, drug addiction, transportation, low edu. Level, literacy, decrease access to med. care, penitentiary, rehab)? @ -none Was there de-escalation of care discussed even if they declined (Discuss DNR or withdrawal of care, Hospice)? DNR status @ -no What co-morbidities impacted this encounter? (DM, HTN, Smoking, COPD, CAD, Cancer, CVA, ARF, Chemo, Hep., AIDS, mental health diagnosis, sleep apnea, morbid obesity)? @ -none Was patient admitted / discharged? Hospital course, mention meds given and route, prescriptions, significant lab abnormalities, going to OR and other pertinent info. @ - 33 male phone with the acute DKA. Persistent nausea vomiting with some dehydration and diarrhea. Patient be admitted for pressure control and further evaluation monitoring, supportive care Admitted Undiagnosed new problem with uncertain prognosis? @ -no Drug Therapy requiring intensive monitoring for toxicity (Heparin, Nitro, Insulin, Cardizem)? @ -no Were any procedures done? @ -no Diagnosis/symptom? @ -DKA Acute, or Chronic, or Acute on Chronic? @ -Acute Uncomplicated (without systemic symptoms) or Complicated (systemic symptoms)? @ -Complicated Side effects of treatment? @ -no Exacerbation, Progression, or Severe Exacerbation? @ -exacerbation Poses a threat to life or bodily function? How? (Chest pain, [place], [place], pneumonia, PE, COPD, DKA, ARF, appy, cholecystitis, CVA, Diverticulitis, Homicidal, Suicidal, threat to staff... and all critical care pts) @ -yes CK Reevaluation #5: 04/18/23 22:44 Differential Weakness: Hypoglycemia, shock, sepsis, hyponatremia, anemia, infection, [place], ETOH, adverse medicine reaction, overdose, stroke, this is not meant to be an all-inclusive list. - Consultations Consultation #1: Spoke with admitting physicians agreeable to admit this patient Medical Decision Making - Medical Decision Making 33 male phone with the acute DKA. Persistent nausea vomiting with some dehydration and diarrhea. Patient be admitted for pressure control and further evaluation monitoring, supportive care - Lab Data Result diagrams: 04/20/23 06:29 04/20/23 06:33 Lab Results 04/18/23 04/18/23 04/18/23 Range/Units 16:25 16:47 16:47 WBC 9.2 (3.8-10.6) k/uL RBC 6.29 H (4.30-5.90) m/uL Hgb 19.2 H* D (13.0-17.5) gm/dL Hct 60.3 H* (39.0-53.0) % MCV 95.8 (80.0-100.0) fL MCH 30.6 (25.0-35.0) pg MCHC 31.9 (31.0-37.0) g/dL RDW 14.9 (11.5-15.5) % Plt Count (150-450) k/uL MPV 11.0 Neutrophils % 73 % Lymphocytes % 20 % Monocytes % 5 % Eosinophils % 0 % Basophils % 0 % Neutrophils # 6.7 (1.3-7.7) k/uL Lymphocytes # 1.8 (1.0-4.8) k/uL Monocytes # 0.5 (0-1.0) k/uL Eosinophils # 0.0 (0-0.7) k/uL Basophils # 0.0 (0-0.2) k/uL Manual Slide Review Performed RBC Morphology Normal PT (10.0-12.5) sec INR (<1.2) APTT (22.0-30.0) sec VBG pH (7.31-7.41) VBG pCO2 (37-51) mmHg VBG HCO3 (24-28) mmol/L Sodium (137-145) mmol/L Potassium (3.5-5.1) mmol/L Chloride (98-107) mmol/L Carbon Dioxide (22-30) mmol/L Anion Gap mmol/L BUN (9-20) mg/dL Creatinine (0.66-1.25) mg/dL Est GFR (CKD-EPI)AfAm (>60 ml/min/1.73 sqM) Est GFR (CKD-EPI)NonAf (>60 ml/min/1.73 sqM) Glucose (74-99) mg/dL POC Glucose (mg/dL) >600 H (70-110) mg/dL POC Glu Refinery Technician ID Janett Hollins Lactic Ac Sepsis Rflx Plasma Lactic Acid Neymar (0.7-2.0) mmol/L Calcium (8.4-10.2) mg/dL Phosphorus (2.5-4.5) mg/dL Magnesium (1.6-2.3) mg/dL Total Bilirubin (0.2-1.3) mg/dL AST (17-59) U/L ALT (4-49) U/L Alkaline Phosphatase (38-126) U/L Troponin I (0.000-0.034) ng/mL Total Protein (6.3-8.2) g/dL Albumin (3.5-5.0) g/dL Urine Color Colorless Urine Appearance Clear (Clear) Urine pH 5.0 (5.0-8.0) Ur Specific Hastings 1.026 (1.001-1.035) Urine Protein Negative (Negative) Urine Glucose (UA) 4+ H (Negative) Urine Ketones 2+ H (Negative) Urine Blood Negative (Negative) Urine Nitrite Negative (Negative) Urine Bilirubin Negative (Negative) Urine Urobilinogen <2.0 (<2.0) mg/dL Ur Leukocyte Esterase Negative (Negative) Acetone, Qual (Negative) 04/18/23 04/18/23 04/18/23 Range/Units 16:47 18:15 18:45 WBC (3.8-10.6) k/uL RBC (4.30-5.90) m/uL Hgb (13.0-17.5) gm/dL Hct (39.0-53.0) % MCV (80.0-100.0) fL MCH (25.0-35.0) pg MCHC (31.0-37.0) g/dL RDW (11.5-15.5) % Plt Count (150-450) k/uL MPV Neutrophils % % Lymphocytes % % Monocytes % % Eosinophils % % Basophils % % Neutrophils # (1.3-7.7) k/uL Lymphocytes # (1.0-4.8) k/uL Monocytes # (0-1.0) k/uL Eosinophils # (0-0.7) k/uL Basophils # (0-0.2) k/uL Manual Slide Review RBC Morphology PT (10.0-12.5) sec INR (<1.2) APTT (22.0-30.0) sec VBG pH 7.25 L (7.31-7.41) VBG pCO2 36 L (37-51) mmHg VBG HCO3 16 L (24-28) mmol/L Sodium 138 (137-145) mmol/L Potassium 3.8 (3.5-5.1) mmol/L Chloride 96 L (98-107) mmol/L Carbon Dioxide 16 L (22-30) mmol/L Anion Gap 26 mmol/L BUN 40 H (9-20) mg/dL Creatinine 0.96 (0.66-1.25) mg/dL Est GFR (CKD-EPI)AfAm >90 (>60 ml/min/1.73 sqM) Est GFR (CKD-EPI)NonAf >90 (>60 ml/min/1.73 sqM) Glucose 319 H (74-99) mg/dL POC Glucose (mg/dL) (70-110) mg/dL POC Glu Refinery Technician ID Lactic Ac Sepsis Rflx Plasma Lactic Acid Neymar 8.6 H* (0.7-2.0) mmol/L Calcium 9.6 (8.4-10.2) mg/dL Phosphorus 4.5 (2.5-4.5) mg/dL Magnesium 2.4 H (1.6-2.3) mg/dL Total Bilirubin 0.7 (0.2-1.3) mg/dL AST 26 (17-59) U/L ALT 44 (4-49) U/L Alkaline Phosphatase 217 H (38-126) U/L Troponin I (0.000-0.034) ng/mL Total Protein 7.8 (6.3-8.2) g/dL Albumin 4.5 (3.5-5.0) g/dL Urine Color Urine Appearance (Clear) Urine pH (5.0-8.0) Ur Specific [place] (1.001-1.035) Urine Protein (Negative) Urine Glucose (UA) (Negative) Urine Ketones (Negative) Urine Blood (Negative) Urine Nitrite (Negative) Urine Bilirubin (Negative) Urine Urobilinogen (<2.0) mg/dL Ur Leukocyte Esterase (Negative) Acetone, Qual Positive (Negative) 04/18/23 04/18/23 04/18/23 Range/Units 18:45 20:10 20:24 WBC (3.8-10.6) k/uL RBC (4.30-5.90) m/uL Hgb (13.0-17.5) gm/dL Hct (39.0-53.0) % MCV (80.0-100.0) fL MCH (25.0-35.0) pg MCHC (31.0-37.0) g/dL RDW (11.5-15.5) % Plt Count (150-450) k/uL MPV Neutrophils % % Lymphocytes % % Monocytes % % Eosinophils % % Basophils % % Neutrophils # (1.3-7.7) k/uL Lymphocytes # (1.0-4.8) k/uL Monocytes # (0-1.0) k/uL Eosinophils # (0-0.7) k/uL Basophils # (0-0.2) k/uL Manual Slide Review RBC Morphology PT 10.2 (10.0-12.5) sec INR 0.9 (<1.2) APTT 20.1 L (22.0-30.0) sec VBG pH (7.31-7.41) VBG pCO2 (37-51) mmHg VBG HCO3 (24-28) mmol/L Sodium (137-145) mmol/L Potassium (3.5-5.1) mmol/L Chloride (98-107) mmol/L Carbon Dioxide (22-30) mmol/L Anion Gap mmol/L BUN (9-20) mg/dL Creatinine (0.66-1.25) mg/dL Est GFR (CKD-EPI)AfAm (>60 ml/min/1.73 sqM) Est GFR (CKD-EPI)NonAf (>60 ml/min/1.73 sqM) Glucose (74-99) mg/dL POC Glucose (mg/dL) (70-110) mg/dL POC Glu Refinery Technician ID Lactic Ac Sepsis Rflx Y Plasma Lactic Acid Neymar (0.7-2.0) mmol/L Calcium (8.4-10.2) mg/dL Phosphorus (2.5-4.5) mg/dL Magnesium (1.6-2.3) mg/dL Total Bilirubin (0.2-1.3) mg/dL AST (17-59) U/L ALT (4-49) U/L Alkaline Phosphatase (38-126) U/L Troponin I <0.012 (0.000-0.034) ng/mL Total Protein (6.3-8.2) g/dL Albumin (3.5-5.0) g/dL Urine Color Urine Appearance (Clear) Urine pH (5.0-8.0) Ur Specific [place] (1.001-1.035) Urine Protein (Negative) Urine Glucose (UA) (Negative) Urine Ketones (Negative) Urine Blood (Negative) Urine Nitrite (Negative) Urine Bilirubin (Negative) Urine Urobilinogen (<2.0) mg/dL Ur Leukocyte Esterase (Negative) Acetone, Qual (Negative) - EKG Data -: EKG Interpreted by Me (EKG is sinus tachycardia 131 ME 112 QRS 83 QTc 380) Critical Care Time Critical Care Time: Yes Total Critical Care Time: 31 Disposition Clinical Impression: Dehydration, Acute metabolic encephalopathy, DKA, type 1, Diabetes mellitus type 1 Disposition: ADMITTED IP TO THIS HOSP Condition: Fair Is patient prescribed a controlled substance at d/c from ED?: No Time of Disposition: 20:30
[2023-04-18 18:39] LABS: Appearance,Urine Clear (Clear); Bilirubin,Urine Negative (Negative); Blood,Urine Negative (Negative); Color,Urine Colorless; Glucose,Urine (UA) 4+ (Negative); Leukocyte Esterase,Urine Negative (Negative); Nitrite,Urine Negative (Negative); Protein,Urine Negative (Negative); Specific Gravity,Urine 1.026 (1.001-1.035); Urobilinogen,Urine <2.0 mg/dL (<2.0)
[2023-04-18 18:43] LABS: Basophils % (A) 0 %; Eosinophils % (A) 0 %; Lymphocytes # (A) 1.8 k/uL (1.0-4.8); Lymphocytes % (A) 20 %; MCH 30.6 pg (25.0-35.0); MCHC 31.9 g/dL (31.0-37.0); MCV 95.8 fL (80.0-100.0); Monocytes # (A) 0.5 k/uL (0-1.0); Monocytes % (A) 5 %; Neutrophils # (A) 6.7 k/uL (1.3-7.7); Neutrophils % (A) 73 %; RBC 6.29 m/uL (4.30-5.90); RDW 14.9 % (11.5-15.5); WBC 9.2 k/uL (3.8-10.6)
[2023-04-18 18:44] LABS: Ketones,Urine 2+ (Negative)
[2023-04-18 18:49] LABS: HCT 60.3 % (39.0-53.0); HGB 19.2 gm/dL (13.0-17.5)
[2023-04-18 19:10] LABS: VBG PH 7.25 (7.31-7.41)
[2023-04-18 19:15] LABS: AST 26 U/L (17-59); African American GFR (CKD) >90 (>60 ml/min/1.73 sqM); Albumin 4.5 g/dL (3.5-5.0); Alkaline Phosphatase 217 U/L (38-126); Anion Gap 26 mmol/L; Blood Urea Nitrogen 40 mg/dL (9-20); Calcium 9.6 mg/dL (8.4-10.2); Carbon Dioxide 16 mmol/L (22-30); Chloride 96 mmol/L (98-107); Glucose 319 mg/dL (74-99); Magnesium 2.4 mg/dL (1.6-2.3); Non-African American GFR(CKD) >90 (>60 ml/min/1.73 sqM); Phosphorus 4.5 mg/dL (2.5-4.5); Potassium 3.8 mmol/L (3.5-5.1); Sodium 138 mmol/L (137-145); Total Bilirubin 0.7 mg/dL (0.2-1.3); Total Protein 7.8 g/dL (6.3-8.2)
[2023-04-18 19:25] LABS: ALT 44 U/L (4-49)
[2023-04-18 19:50] LABS: RBC Morphology Normal
[2023-04-18] MEDS ORDERED: INSULIN REGULAR BOLUS (FROM DRIP BAG) IV ONE (20:24)
[2023-04-18] MEDS ORDERED: SODIUM CHLORIDE 0.9% 1,000 ML IV ONE (20:24)
[2023-04-18] MEDS ORDERED: INSULIN REGULAR 100 UNIT in SODIUM CHLORIDE 0.9% 100 ML IV SCH (20:30)
[2023-04-18] MEDS: SODIUM CHLORIDE 0.9% 1,000 ML IV SCH (20:38)
[2023-04-18 21:17] LABS: INR 0.9 (<1.2); Partial Thromboplastin Time 20.1 sec (22.0-30.0); Prothrombin Time 10.2 sec (10.0-12.5)
[2023-04-18 21:19] LABS: Glucose,Whole Blood 238 mg/dL (70-110)
[2023-04-18] MEDS: D5-0.45% NACL WITH KCL 20MEQ/L 1,000 ML IV SCH (21:41)
[2023-04-18 22:28] LABS: Glucose,Whole Blood 214 mg/dL (70-110)
[2023-04-18 23:15] LABS: Glucose,Whole Blood 193 mg/dL (70-110)
[2023-04-18] MEDS ORDERED: ONDANSETRON 4 MG/2 ML VIAL IVP PRN (23:59)
[2023-04-19 00:15] LABS: African American GFR (CKD) >90 (>60 ml/min/1.73 sqM); Anion Gap 13 mmol/L; Blood Urea Nitrogen 31 mg/dL (9-20); Carbon Dioxide 22 mmol/L (22-30); Chloride 103 mmol/L (98-107); Glucose 182 mg/dL (74-99); Non-African American GFR(CKD) >90 (>60 ml/min/1.73 sqM); Phosphorus 2.5 mg/dL (2.5-4.5); Sodium 138 mmol/L (137-145)
[2023-04-19 00:20] LABS: Glucose,Whole Blood 136 mg/dL (70-110)
[2023-04-19] MEDS: SODIUM CHLORIDE 0.9% 1,000 ML IV SCH ×4 (00:33→16:33)
[2023-04-19 01:13] LABS: Glucose,Whole Blood 120 mg/dL (70-110)
[2023-04-19 02:20] LABS: Glucose,Whole Blood 152 mg/dL (70-110)
[2023-04-19] MEDS: D5-0.45% NACL WITH KCL 20MEQ/L 1,000 ML IV SCH ×3 (02:44→10:46)
[2023-04-19 03:22] LABS: Glucose,Whole Blood 177 mg/dL (70-110)
[2023-04-19 03:31] LABS: African American GFR (CKD) >90 (>60 ml/min/1.73 sqM); Anion Gap 8 mmol/L; Blood Urea Nitrogen 26 mg/dL (9-20); Carbon Dioxide 27 mmol/L (22-30); Chloride 100 mmol/L (98-107); Glucose 172 mg/dL (74-99); Non-African American GFR(CKD) >90 (>60 ml/min/1.73 sqM); Potassium 3.8 mmol/L (3.5-5.1); Sodium 135 mmol/L (137-145)
[2023-04-19 04:21] LABS: Glucose,Whole Blood 182 mg/dL (70-110)
[2023-04-19 05:25] LABS: Glucose,Whole Blood 158 mg/dL (70-110)
[2023-04-19 06:34] LABS: Glucose,Whole Blood 145 mg/dL (70-110)
[2023-04-19 07:37] LABS: Glucose,Whole Blood 180 mg/dL (70-110)
[2023-04-19 08:35] LABS: Glucose,Whole Blood 208 mg/dL (70-110)
[2023-04-19 09:27] LABS: Glucose,Whole Blood 249 mg/dL (70-110)
[2023-04-19 10:46] LABS: Glucose,Whole Blood 297 mg/dL (70-110)
[2023-04-19 11:36] LABS: ALT 21 U/L (4-49); AST 22 U/L (17-59); African American GFR (CKD) >90 (>60 ml/min/1.73 sqM); Alkaline Phosphatase 152 U/L (38-126); Anion Gap 8 mmol/L; Blood Urea Nitrogen 16 mg/dL (9-20); Calcium 8.1 mg/dL (8.4-10.2); Carbon Dioxide 28 mmol/L (22-30); Chloride 96 mmol/L (98-107); Glucose 285 mg/dL (74-99); Magnesium 1.8 mg/dL (1.6-2.3); Non-African American GFR(CKD) >90 (>60 ml/min/1.73 sqM); Potassium 3.7 mmol/L (3.5-5.1); Sodium 132 mmol/L (137-145); Total Bilirubin 1.1 mg/dL (0.2-1.3); Total Protein 5.6 g/dL (6.3-8.2)
[2023-04-19 11:39] LABS: Basophils % (A) 0 %; Eosinophils % (A) 0 %; HCT 38.9 % (39.0-53.0); Lymphocytes # (A) 1.6 k/uL (1.0-4.8); Lymphocytes % (A) 9 %; MCH 30.3 pg (25.0-35.0); MCHC 33.8 g/dL (31.0-37.0); Mean Platelet Volume 10.2; Monocytes # (A) 1.3 k/uL (0-1.0); Monocytes % (A) 7 %; Neutrophils # (A) 15.4 k/uL (1.3-7.7); Neutrophils % (A) 82 %; Platelet Count 310 k/uL (150-450); RBC 4.34 m/uL (4.30-5.90); RDW 14.8 % (11.5-15.5); WBC 18.7 k/uL (3.8-10.6)
[2023-04-19 11:40] LABS: HGB 13.1 gm/dL (13.0-17.5)
[2023-04-19 11:41] LABS: MCV 89.6 fL (80.0-100.0)
[2023-04-19 11:42] LABS: Glucose,Whole Blood 213 mg/dL (70-110)
[2023-04-19] MEDS: PANTOPRAZOLE 40 MG/10 ML VIAL IVP SCH ×2 (11:43→20:25)
[2023-04-19] MEDS: carvediloL 6.25 MG TAB PO SCH ×2 (11:43→17:52)
[2023-04-19 12:39] LABS: Glucose,Whole Blood 214 mg/dL (70-110)
[2023-04-19] MEDS ORDERED: INSULIN ASPART (NovoLOG) 100 UNIT/ML VIAL SQ SCH ×3 (12:44→17:30)
[2023-04-19] MEDS ORDERED: INSULIN NPH 100 UNIT/ML 10 ML VIAL SQ ONE (13:00)
[2023-04-19 13:29] LABS: Glucose,Whole Blood 184 mg/dL (70-110)
[2023-04-19] MEDS ORDERED: DEXTROSE 50% SYRINGE 50 ML IVP PRN ×2 (14:30)
[2023-04-19] MEDS ORDERED: INSULIN DETEMIR (LEVEMIR) 100 UNIT/ML SYR SQ STA (14:32)
[2023-04-19 15:00] LABS: Glucose,Whole Blood 190 mg/dL (70-110)
[2023-04-19 16:40] LABS: Glucose,Whole Blood 130 mg/dL (70-110)
[2023-04-19 17:12] LABS: Glucose,Whole Blood 144 mg/dL (70-110)
[2023-04-19] MEDS: INSULIN ASPART (NovoLOG) 100 UNIT/ML VIAL SQ SCH ×3 (17:16→20:25)
[2023-04-19 19:36] VITALS: RESP 16
[2023-04-19 20:14] LABS: Glucose,Whole Blood 113 mg/dL (70-110)
[2023-04-19] MEDS ORDERED: INSULIN DETEMIR (LEVEMIR) 100 UNIT/ML SYR SQ SCH ×2 (21:00)
--- NOTE | 2023-04-19 22:52 | HP ---
HISTORY AND PHYSICAL CHIEF COMPLAINT: High blood sugars. HISTORY OF PRESENT ILLNESS: This is a 33-year-old gentleman with a past history of diabetes mellitus type 1, who was complaining of high sugars, severe weakness, and nausea. The patient came to [facility] and the blood sugars were found to be elevated and with evidence of diabetic ketoacidosis. The patient admitted for further evaluation and treatment. The blood sugars were improving with insulin drip. The patient apparently had multiple episodes of diarrhea and the family is also affected. The patient used to see Dr. Aguirre previously, but apparently noncompliant. There is no history of any fever, rigor, or chills. PAST MEDICAL HISTORY: Diabetes mellitus type 1, asthma, multiple medical issues. Rest of the chart and rest of the history is reviewed. HOME MEDICATIONS: Reviewed and include insulin 45 units subcu at bedtime, the dose and rest of medications noted. ALLERGIES: Latex. FAMILY HISTORY: Hypertension, hyperlipidemia. SOCIAL HISTORY: History of smoking, THC. REVIEW OF SYSTEMS: Fourteen-point review of systems is negative except as mentioned earlier. PHYSICAL EXAMINATION: VITAL SIGNS: Pulse is 108, blood pressure 130/90, respirations 18. HEENT: Conjunctivae normal. Oral mucosa is dry. NECK: No jugular venous distention. CARDIOVASCULAR: S1 and S2. RESPIRATIONS: Breath sounds diminished at the bases. ABDOMEN: Soft, nontender. No masses. LEGS: No edema. NERVOUS SYSTEM: No focal deficit. SKIN: No ulcer, rash, or bleeding. LABORATORY DATA: WBC 18.7. Rest of the labs are noted. ASSESSMENT: 1. Acute diabetic ketoacidosis with diarrhea, dehydration, and acute diarrheal disease. 2. Metabolic acidosis secondary to diabetic ketoacidosis. 3. Elevated WBC, possibly reactive. 4. Hyponatremia. 5. History of noncompliance. 6. History of asthma. 7. Hypertension. 8. Hyperlipidemia. 9. History of anxiety and bipolar depression. RECOMMENDATIONS: This 33-year-old gentleman presented with multiple complex medical issues. We will monitor the patient closely. Recommend to continue serum protocol and anion gap. When the anion gap closes, I would recommend to transition to insulin subcu injections. The daily need of insulin will be calculated. Otherwise, monitor blood sugars closely. Resume the home medications. History of noncompliance is also important. We will address with the patient. Prognosis is guarded because of multiple complex medical issues. Further recommendations to follow. See orders for details. MMODL / IJN: [id number] /
[2023-04-20 01:01] LABS: Glucose,Whole Blood 44 mg/dL (70-110)
[2023-04-20 01:19] LABS: Glucose,Whole Blood 80 mg/dL (70-110)
[2023-04-20] MEDS: SODIUM CHLORIDE 0.9% 1,000 ML IV SCH (06:04)
[2023-04-20 07:19] LABS: Glucose,Whole Blood 53 mg/dL (70-110)
[2023-04-20 07:36] VITALS: BP 120/74; PULSE 77; TEMP 98.7
[2023-04-20 07:40] LABS: Glucose,Whole Blood 69 mg/dL (70-110)
[2023-04-20] MEDS: INSULIN ASPART (NovoLOG) 100 UNIT/ML VIAL SQ SCH ×2 (08:21)
[2023-04-20 08:22] LABS: Glucose,Whole Blood 107 mg/dL (70-110)
[2023-04-20 09:27] LABS: Glucose,Whole Blood 152 mg/dL (70-110)
[2023-04-20] MEDS: carvediloL 6.25 MG TAB PO SCH (10:00)
[2023-04-20] MEDS: PANTOPRAZOLE 40 MG/10 ML VIAL IVP SCH (10:00)
[2023-04-20 14:02] LABS: ALT 17 U/L (10-49); AST 18 U/L (14-35); Albumin/Globulin Ratio 1.43 Ratio (1.60-3.17); Alkaline Phosphatase 153 U/L (41-126); Blood Urea Nitrogen 7.6 mg/dL (9.0-27.0); Calcium 8.7 mg/dL (8.7-10.3); Carbon Dioxide 30.3 mmol/L (21.6-31.8); Chloride 101 mmol/L (96-109); Globulin 2.1 g/dL (1.6-3.3); Glucose 67 mg/dL (70-110); Potassium 3.3 mmol/L (3.5-5.5); Sodium 141 mmol/L (135-145); Total Bilirubin 0.2 mg/dL (0.3-1.2); Total Protein 5.1 g/dL (6.2-8.2)
[2023-04-20 15:50] LABS: Basophils # (A) 0.03 X 10*3/uL (0.00-0.10); Basophils % (A) 0.3 %; HCT 38.4 % (39.6-50.0); HGB 12.4 g/dL (13.0-17.0); Lymphocytes # (A) 3.21 X 10*3/uL (0.90-5.00); Lymphocytes % (A) 30.9 %; MCH 29.5 pg (27.0-32.0); MCHC 32.3 g/dL (32.0-37.0); MCV 91.2 FL (80.0-97.0); Mean Platelet Volume 11.2 FL (9.5-12.2); Monocytes # (A) 0.94 X 10*3/uL (0.20-1.00); NRBC Per 100 WBC 0 X 10*3/uL (0.00-0.01); Neutrophils # (A) 6.09 X 10*3/uL (1.80-7.70); Neutrophils % (A) 58.5 %; Platelet Count 381 X 10*3/uL (140-440); RBC 4.21 X 10*6/uL (4.40-5.60); RDW 14.9 % (11.5-14.5)
--- NOTE | 2023-04-22 10:02 | P.DS ---
Providers Date of admission: 04/18/23 20:25 Expected date of discharge: 04/20/23 Attending physician: Wayne Moe Primary care physician: Stated None Hospital Course: Final diagnosis Acute diabetic ketoacidosis with diarrhea, dehydration, and acute diarrheal disease Metabolic acidosis secondary to DKA Elevated WBC likely reactive Hyponatremia History of noncompliance History of asthma Hypertension history Hyperlipidemia history History of anxiety/bipolar depression Continued ongoing nicotine dependence Discharge disposition Patient is being discharged in a stable condition with guarded prognosis to home. Patient will follow-up with Dr. Javier Moe in the outpatient setting upon discharge. Patient was also provided resources for other local area primary care providers as patient does not currently have one. Patient is to continue with insulins as prescribed and would recommend endocrinology follow-up outpatient as scheduled. Total time taken is greater than 35 minutes. Hospital course This is a 33-year-old male who was recently admitted with diabetes type 1 with severe weakness nausea and multiple family members at home being sick with uncontrolled blood sugars and found to be in DKA. Patient was placed on DKA protocol with insulin drip with improvements in sugars and reports to feeling better. Patient is able to tolerate oral intake and reports has insulins at home. Patient does have a glucometer and has been instructed to continue testing at least 4 times daily and keep a diary of all readings. Patient takes sliding scale as well as long acting and strongly recommend outpatient follow up with endocrine. Patient is a poorly controlled diabetic and noncompliant. Patient was seeing Dr. Aguirre and reports to missing appointments and unsure if he was discharged from the practice. Patient has been given a number of resources in the community for outpatient follow-up. Patient is adamant about going home as he has young children he needs to care for and no one at the home and will be taking care of them. Patient reports to feeling well and numbers are improved and will be discharged home. Currently no reports of chest pain, shortness of breath, or palpitations. Patient is afebrile. No reports of nausea or vomiting and patient is tolerating diet. Patient will be discharged home today. Guarded prognosis and high risk for readmission as patient is extremely noncompliant with comorbidities including blood sugars. Physical exam: Gen: This is a 33-year-old male who is thin built, cachectic, ill-appearing, appears older than stated age, unkempt HEENT: Head is atraumatic, normocephalic. Pupils equal, round. Sclerae is anicteric. NECK: Supple. No JVD. No lymphadenopathy. No thyromegaly. LUNGS: Clear to auscultation. No wheezes or rhonchi. No intercostal retractions. HEART: Regular rate and rhythm. No murmur. ABDOMEN: Soft. Scaphoid. Bowel sounds are present. No masses. No tenderness. EXTREMITIES: No pedal edema. No calf tenderness. NEUROLOGICAL: Patient is awake, alert and oriented x3. Cranial nerves 2 through 12 are grossly intact. Please refer to medication reconciliation sheet for a list of medications. The impression and plan of care has been dictated by Poornima Soto, Nurse Practitioner as directed. Dr. Abhi MD I have performed a history and examination and MDM of this patient, discussed the same with the dictator, and agree with the dictator's assessment and plan as written ,documented as a scribe. Based on total visit time, I have performed more than 50% of the visit. Patient Condition at Discharge: Fair Plan - Discharge Summary Discharge Rx Participant: Yes New Discharge Prescriptions: Continue Insulin Glargine,Hum.rec.anlog [Lantus Solostar Pen] 45 units SQ HS carvediloL [Coreg] 6.25 mg PO BID Famotidine [Pepcid] 40 mg PO DAILY 30 Days #30 tablet INSULIN ASPART (NovoLOG) [NovoLOG (formulary)] 10 unit SQ AC-TID Discharge Medication List Famotidine [Pepcid] 40 mg PO DAILY 30 Days #30 tablet 03/04/23 [Rx] INSULIN ASPART (NovoLOG) [NovoLOG (formulary)] 10 unit SQ AC-TID 04/18/23 [History] Insulin Glargine,Hum.rec.anlog [Lantus Solostar Pen] 45 units SQ HS 04/18/23 [History] carvediloL [Coreg] 6.25 mg PO BID 04/18/23 [History] Follow up Appointment(s)/Referral(s): Supriya Edward MD [STAFF PHYSICIAN] - 1 Week (Patient instructed to call and make own appointment due to being a new patient) Patient Instructions/Handouts: Diabetic Ketoacidosis (DC), Diabetes Type 1: Management (DC) Activity/Diet/Wound Care/Special Instructions: Activity Limited until follow-up Establish and follow-up with primary care provider as soon as possible Continue taking medications as prescribed Monitor blood sugars closely and keep a diary of all readings for follow-up appointment Continue diabetic diet Discharge Disposition: HOME SELF-CARE
== END 2023-04-20 11:12 | disposition home or self-care (01) | DRG 637 ==
LOC: EC 16:22 → 3SCARD 20:25 → 5NMEDONC 04-19 08:31
PROVIDERS: ADMIT Hospitalist; ATTEND Hospitalist
DX: E10.10 Type 1 diabetes mellitus with ketoacidosis without coma (principal); G93.41 Metabolic encephalopathy; E87.1 Hypo-osmolality and hyponatremia; E10.43 Type 1 diabetes mellitus with diabetic autonomic (poly)neuropathy; F31.9 Bipolar disorder, unspecified; J45.909 Unspecified asthma, uncomplicated; I10 Essential (primary) hypertension; E86.0 Dehydration; R19.7 Diarrhea, unspecified; E78.5 Hyperlipidemia, unspecified; F41.9 Anxiety disorder, unspecified; K31.84 Gastroparesis; F17.210 Nicotine dependence, cigarettes, uncomplicated; Z79.4 Long term (current) use of insulin; Z91.199 Patient's noncompliance with other medical treatment and regimen due to unspecified reason; Z28.310 Unvaccinated for COVID-19; Z79.899 Other long term (current) drug therapy; Z91.040 Latex allergy status; Z86.14 Personal history of Methicillin resistant Staphylococcus aureus infection
CPT/HCPCS: 36415; 80051; 80053; 81003; 82009; 82565; 82803; 82947; 83036; 83605; 83735; 84100; 84484; 84520; 85025; 85610; 85730; 87636; 93005; 96361; 96374; 96375; 96376; 99291

== ENCOUNTER 2023-06-01 15:57 | Inpatient (IN) | payer OTHER ==
[2023-06-01 16:05] LABS: Glucose,Whole Blood >600 mg/dL (70-110)
[2023-06-01] MEDS ORDERED: SODIUM CHLORIDE 0.9% 1,000 ML IV STA (16:18)
[2023-06-01] MEDS ORDERED: SODIUM CHLORIDE 0.9% 1,000 ML IV ONE ×3 (16:18→21:43)
[2023-06-01] MEDS ORDERED: INSULIN REGULAR 100 UNIT/ML VIAL (IV) IV STA (16:18)
--- NOTE | 2023-06-01 16:39 | ED ---
General Adult HPI - General Chief complaint: Recheck/Abnormal Lab/Rx Stated complaint: Diabetic issues,AMS Time Seen by Provider: 06/01/23 16:17 Source: patient Mode of arrival: ambulatory Limitations: no limitations - History of Present Illness Initial comments: This patient is a 33-year-old man with history of diabetes who states he is here for "DKA" the patient states that he does not have a physician. He maintains that he has not run out of insulin and had taken some earlier in the day. He feels the same as he has with previous DKA. He is having abdominal pain, more or less continuous vomiting, shortness of breath. He is feeling weak. Kelsy centeno's friend states that he is delirious. She states that he is asking to talk with his mother who is . Patient denies symptoms of infection, fever and chills Onset/Timin -: days(s) Radiation: abdomen Consistency: constant Improves with: none Worsens with: none Associated Symptoms: nausea/vomiting Treatments Prior to Arrival: none - Related Data Home Medications Medication Instructions Recorded Confirmed carvediloL [Coreg] 6.25 mg PO BID 04/18/23 06/01/23 Previous Rx's Medication Instructions Recorded Famotidine [Pepcid] 40 mg PO DAILY 30 Days #30 tablet 03/04/23 Insulin Aspart [NovoLOG] 6 units SQ AC-TID #2 each 06/03/23 Insulin Glargine,Hum.rec.anlog 20 units SQ HS #0 06/03/23 [Lantus Solostar Pen] Allergies Allergy/AdvReac Type Severity Reaction Status Date / Time latex Allergy Rash/Hives Verified 06/01/23 17:04 Review of Systems ROS Statement: Those systems with pertinent positive or pertinent negative responses have been documented in the HPI. ROS Other: All systems not noted in ROS Statement are negative. Constitutional: Reports: weakness. Denies: fever, chills Respiratory: Reports: dyspnea. Denies: cough, wheezes Cardiovascular: Denies: chest pain, palpitations, edema, syncope Gastrointestinal: Reports: abdominal pain, nausea, vomiting. Denies: diarrhea, constipation, hematemesis, melena, hematochezia Genitourinary: Denies: dysuria, hematuria Musculoskeletal: Denies: back pain Skin: Denies: rash Neurological: Denies: headache, weakness Past Medical History Past Medical History: Asthma, Diabetes Mellitus, Hyperlipidemia, Hypertension, Osteoarthritis (OA) Additional Past Medical History / Comment(s): IDDM type I, diabetic gastroparesis, neuropathy bilateral hands/fingers, migraines, arthrtitis fingers/knees, past R hand and L femur fractures. Previous DKA History of Any Multi-Drug Resistant Organisms: MRSA Date of last positivie culture/infection: 04/26/2014 MDRO Source:: Face Past Surgical History: Ear Surgery, Orthopedic Surgery Additional Past Surgical History / Comment(s): R hand surgery d/t fracture- pinned and pins since removed, L leg femur fracture with pin that eventually was removed, bilateral myringotomy with tubes/ear drum repairs.; Left pinky removal Past Anesthesia/Blood Transfusion Reactions: No Reported Reaction Past Psychological History: Anxiety, Bipolar, Depression Smoking Status: Current every day smoker Past Alcohol Use History: None Reported Past Drug Use History: Marijuana - Past Family History Father Family Medical History: Hyperlipidemia, Hypertension, Myocardial Infarction ([place]) Mother Family Medical History: COPD Additional Family Medical History / Comment(s): home O2, Brother(s) Family Medical History: No Reported History General Exam Limitations: no limitations General appearance: alert, in distress Head exam: Present: atraumatic, normocephalic Eye exam: Present: normal appearance. Absent: scleral icterus, conjunctival injection ENT exam: Present: mucous membranes dry, other (Multiple dental caries) Neck exam: Present: normal inspection, full ROM. Absent: tenderness, meningismus Respiratory exam: Present: respiratory distress (Kussmaul respirations). Absent: wheezes, rales, rhonchi, stridor, decreased breath sounds Cardiovascular Exam: Present: normal rhythm, tachycardia, systolic murmur. Absent: diastolic murmur, rubs, gallop GI/Abdominal exam: Present: soft. Absent: distended, tenderness, guarding, jamie ound, rigid, mass, pulsatile mass Extremities exam: Present: normal inspection, normal capillary refill. Absent: pedal edema, calf tenderness Back exam: Present: normal inspection. Absent: CVA tenderness (R), CVA tenderness (L) Neurological exam: Present: alert, CN II-XII intact. Absent: oriented X3 (Patient is disoriented to time), motor sensory deficit Skin exam: Present: warm, dry, intact, normal color. Absent: rash Course Vital Signs 06/01/23 06/01/23 06/01/23 16:04 18:17 19:38 Temperature Pulse Rate 128 H 121 H 128 H Respiratory 18 22 20 Rate Blood Pressure 121/80 144/99 O2 Sat by Pulse 91 L 97 100 Oximetry 06/01/23 06/01/23 20:28 20:30 Temperature 97.7 F Pulse Rate 125 H 129 H Respiratory 20 14 Rate Blood Pressure 134/109 134/109 O2 Sat by Pulse 100 100 Oximetry EKG Findings - EKG Results: EKG: interpreted by ERMD, sinus rhythm, normal axis, normal ST/T EKG shows: tachycardia (121 bpm) - Blocks, [place], Hypertrophy, ST Abn: AV and intraventricular conduction: right bundle branch block (fixed/intermittent, complete/incomplete) (Possible right ventricular conduction delay) Medical Decision Making - Medical Decision Making Patient is 33-year-old diabetic man presenting in DKA. Insulin and IV fluids are started. Lab tests are pending. The patient does appear to be very dry and suspect will require ICU admission. Case discussed with admitting physician and cold storage superintendent paged. The patient had chest x-ray which I interpreted as negative for acute infiltrate, pneumothorax, congestive heart failure Was pt. sent in by a medical professional or institution ([facility], TREE DOCTOR, urgent care, hospital, or penitentiary...) When possible be specific @ -[No] Did you speak to anyone other than the patient for history (EMS, parent, family, police, friend...)? What history was obtained from this source @ -[No] Did you review nursing and triage notes (agree or disagree)? Why? @ -[I reviewed and agree with nursing and triage notes] Were old charts reviewed (outside hosp., previous admission, EMS record, old EKG, old radiological studies, urgent care reports/EKG's, penitentiary records)? Report findings @ -[Yes old charts were reviewed] Differential Diagnosis (chest pain, altered mental status, abdominal pain women, abdominal pain men, vaginal bleeding, weakness, fever, dyspnea, syncope, headache, dizziness, GI bleed, back pain, seizure, CVA, palpatations, mental health, musculoskeletal)? @ -[Differential Altered Mental Status: Hypoglycemia, DKA, hypercapnia, ETOH, overdose, CO poisoning, trauma, myxedema coma, HTN encephalopathy, infection, encephalitis, psychosis, intercranial hemorrhage, hepatic encephalopathy, meningitis, CVA, this is not meant to be an all-inclusive list EKG interpreted by me (3pts min.). @ -[I interpreted as above X-rays interpreted by me (1pt min.). @ -[I interpreted as above CT interpreted by me (1pt min.). @ -[None done] U/S interpreted by me (1pt. min.). @ -[None done] What testing was considered but not performed or refused? (CT, X-rays, U/S, labs)? Why? @ -[None] What meds were considered but not given or refused? Why? @ -[None] Did you discuss the management of the patient with other professionals ([facility] i.e. , PA, TREE DOCTOR, lab, RT, psych nurse, family welfare social work professor, guzzler builder, teacher, chief sales officer, residential case manager)? Give summary @ -[Case discussed with admitting physician and with cold storage superintendent, treatment recommendations incorporated Was smoking cessation discussed for >3mins.? @ -[No] Was critical care preformed (if so, how long)? @ -[Yes 35 minutes Were there social determinants of health that impacted care today? How? (Homelessness, low income, unemployed, alcoholism, drug addiction, transportation, low edu. Level, literacy, decrease access to med. care, retirement, rehab)? @ -[No] Was there de-escalation of care discussed even if they declined (Discuss DNR or withdrawal of care, Hospice)? DNR status @ -[No] What co-morbidities impacted this encounter? (DM, HTN, Smoking, COPD, CAD, Cancer, CVA, ARF, Chemo, Hep., AIDS, mental health diagnosis, sleep apnea, morbid obesity)? @ -[Type 1 diabetes Was patient admitted / discharged? Hospital course, mention meds given and route, prescriptions, significant lab abnormalities, going to OR and other pertinent info. @ -[Admitted, as above Undiagnosed new problem with uncertain prognosis? @ -[No] Drug Therapy requiring intensive monitoring for toxicity (Heparin, Nitro, Insulin, Cardizem)? @ -[Insulin therapy Were any procedures done? @ -[No] Diagnosis/symptom? @ -[Acute diabetic ketoacidosis Hyperkalemia Acute kidney injury Acute, or Chronic, or Acute on Chronic? @ -[Acute Uncomplicated (without systemic symptoms) or Complicated (systemic symptoms)? @ -[, Complicated by mental status change Side effects of treatment? @ -[No] Exacerbation, Progression, or Severe Exacerbation? @ -[No] Poses a threat to life or bodily function? How? (Chest pain, [place], [place], pneumonia, PE, COPD, DKA, ARF, appy, cholecystitis, CVA, Diverticulitis, Homicidal, Suicidal, threat to staff... and all critical care pts) @ -Yes untreated DKA will rapidly progressed to multisystem organ failure and - Lab Data Result diagrams: 06/02/23 06:33 06/03/23 05:29 Lab Results 06/01/23 06/01/23 06/01/23 Range/Units 16:03 17:04 17:04 WBC 14.4 H (3.8-10.6) k/uL RBC 5.06 (4.30-5.90) m/uL Hgb 15.5 (13.0-17.5) gm/dL Hct 56.7 H (39.0-53.0) % MCV 112.1 H D (80.0-100.0) fL MCH 30.6 (25.0-35.0) pg MCHC 27.3 L (31.0-37.0) g/dL RDW 15.2 (11.5-15.5) % Plt Count 601 H (150-450) k/uL MPV 10.1 Neutrophils % (Manual) 81 % Band Neuts % (Manual) 1 % Lymphocytes % (Manual) 14 % Monocytes % (Manual) 4 % Metamyelocytes % 1 % Myelocytes % 1 % Neutrophils # (Manual) 11.80 H (1.3-7.7) k/uL Lymphocytes # (Manual) 2.02 (1.0-4.8) k/uL Monocytes # (Manual) 0.58 (0-1.0) k/uL Metamyelocytes # (Man) 0.14 H (0) k/uL Myelocytes # (Manual) 0.14 H (0) k/uL Nucleated RBCs 0 (0-0) /100 WBC Manual Slide Review Performed Hypochromasia Marked Macrocytosis Marked A Sodium 134 L (137-145) mmol/L Potassium 6.4 H* (3.5-5.1) mmol/L Chloride 88 L (98-107) mmol/L Carbon Dioxide <5 L* (22-30) mmol/L Anion Gap mmol/L BUN 33 H (9-20) mg/dL Creatinine 1.56 H (0.66-1.25) mg/dL Est GFR (CKD-EPI)AfAm 67 (>60 ml/min/1.73 sqM) Est GFR (CKD-EPI)NonAf 58 (>60 ml/min/1.73 sqM) Glucose 1121 H* (74-99) mg/dL POC Glucose (mg/dL) >600 H (70-110) mg/dL POC Glu Offset Press Operator ID Steven Adler Calcium 10.0 (8.4-10.2) mg/dL Magnesium 2.4 H (1.6-2.3) mg/dL Total Bilirubin 0.5 (0.2-1.3) mg/dL AST 34 (17-59) U/L ALT 50 H (4-49) U/L Alkaline Phosphatase 286 H (38-126) U/L Total Protein 7.7 (6.3-8.2) g/dL Albumin 4.8 (3.5-5.0) g/dL Urine Color Urine Appearance (Clear) Urine pH (5.0-8.0) Ur Specific [place] (1.001-1.035) Urine Protein (Negative) Urine Glucose (UA) (Negative) Urine Ketones (Negative) Urine Blood (Negative) Urine Nitrite (Negative) Urine Bilirubin (Negative) Urine Urobilinogen (<2.0) mg/dL Ur Leukocyte Esterase (Negative) Serum Alcohol <10 mg/dL Acetone, Qual Positive (Negative) 06/01/23 06/01/23 Range/Units 17:04 17:12 WBC (3.8-10.6) k/uL RBC (4.30-5.90) m/uL Hgb (13.0-17.5) gm/dL Hct (39.0-53.0) % MCV (80.0-100.0) fL MCH (25.0-35.0) pg MCHC (31.0-37.0) g/dL RDW (11.5-15.5) % Plt Count (150-450) k/uL MPV Neutrophils % (Manual) % Band Neuts % (Manual) % Lymphocytes % (Manual) % Monocytes % (Manual) % Metamyelocytes % % Myelocytes % % Neutrophils # (Manual) (1.3-7.7) k/uL Lymphocytes # (Manual) (1.0-4.8) k/uL Monocytes # (Manual) (0-1.0) k/uL Metamyelocytes # (Man) (0) k/uL Myelocytes # (Manual) (0) k/uL Nucleated RBCs (0-0) /100 WBC Manual Slide Review Hypochromasia Macrocytosis Sodium (137-145) mmol/L Potassium (3.5-5.1) mmol/L Chloride (98-107) mmol/L Carbon Dioxide (22-30) mmol/L Anion Gap mmol/L BUN (9-20) mg/dL Creatinine (0.66-1.25) mg/dL Est GFR (CKD-EPI)AfAm (>60 ml/min/1.73 sqM) Est GFR (CKD-EPI)NonAf (>60 ml/min/1.73 sqM) Glucose (74-99) mg/dL POC Glucose (mg/dL) >600 H (70-110) mg/dL POC Glu Offset Press Operator ID Meek Curry Calcium (8.4-10.2) mg/dL Magnesium (1.6-2.3) mg/dL Total Bilirubin (0.2-1.3) mg/dL AST (17-59) U/L ALT (4-49) U/L Alkaline Phosphatase (38-126) U/L Total Protein (6.3-8.2) g/dL Albumin (3.5-5.0) g/dL Urine Color Colorless Urine Appearance Clear (Clear) Urine pH 5.0 (5.0-8.0) Ur Specific [place] 1.024 (1.001-1.035) Urine Protein Trace H (Negative) Urine Glucose (UA) 4+ H (Negative) Urine Ketones 4+ H (Negative) Urine Blood Negative (Negative) Urine Nitrite Negative (Negative) Urine Bilirubin Negative (Negative) Urine Urobilinogen <2.0 (<2.0) mg/dL Ur Leukocyte Esterase Negative (Negative) Serum Alcohol mg/dL Acetone, Qual (Negative) Disposition Clinical Impression: Diabetic ketoacidosis Disposition: ADMITTED IP TO THIS HOSP Condition: Fair Is patient prescribed a controlled substance at d/c from ED?: No
[2023-06-01 17:14] LABS: Glucose,Whole Blood >600 mg/dL (70-110)
[2023-06-01 17:30] LABS: ALT 50 U/L (4-49); AST 34 U/L (17-59); African American GFR (CKD) 67 (>60 ml/min/1.73 sqM); Albumin 4.8 g/dL (3.5-5.0); Alcohol <10 mg/dL; Alkaline Phosphatase 286 U/L (38-126); Blood Urea Nitrogen 33 mg/dL (9-20); Chloride 88 mmol/L (98-107); Magnesium 2.4 mg/dL (1.6-2.3); Non-African American GFR(CKD) 58 (>60 ml/min/1.73 sqM); Sodium 134 mmol/L (137-145); Total Bilirubin 0.5 mg/dL (0.2-1.3); Total Protein 7.7 g/dL (6.3-8.2)
[2023-06-01 17:31] LABS: HGB 15.5 gm/dL (13.0-17.5); Hypochromasia Marked; MCH 30.6 pg (25.0-35.0); MCHC 27.3 g/dL (31.0-37.0); Macrocytosis Marked; Mean Platelet Volume 10.1; Platelet Count 601 k/uL (150-450); RBC 5.06 m/uL (4.30-5.90); RDW 15.2 % (11.5-15.5); WBC 14.4 k/uL (3.8-10.6)
[2023-06-01 17:39] LABS: Carbon Dioxide <5 mmol/L (22-30); Potassium 6.4 mmol/L (3.5-5.1)
[2023-06-01 17:41] LABS: HCT 56.7 % (39.0-53.0); MCV 112.1 fL (80.0-100.0)
[2023-06-01 17:42] LABS: Glucose 1121 mg/dL (74-99)
[2023-06-01 18:04] LABS: VBG PH 6.94 (7.31-7.41)
[2023-06-01] MEDS: INSULIN REGULAR 100 UNIT in SODIUM CHLORIDE 0.9% 100 ML IV SCH (18:50)
[2023-06-01] MEDS: SODIUM CHLORIDE 0.9% 1,000 ML IV SCH ×2 (18:50→23:07)
[2023-06-01 18:53] LABS: Glucose,Whole Blood >600 mg/dL (70-110)
[2023-06-01 19:05] LABS: Band Neutrophils % 1 %; Lymphocytes # (M) 2.02 k/uL (1.0-4.8); Metamyelocytes # (M) 0.14 k/uL (0); Metamyelocytes % 1 %; Monocytes # (M) 0.58 k/uL (0-1.0); Myelocytes # (M) 0.14 k/uL (0); Myelocytes % 1 %; Neutrophils % (M) 81 %; Nucleated Red Blood Cells 0 /100 WBC (0-0); Total Cells Counted 200
[2023-06-01 19:29] LABS: Appearance,Urine Clear (Clear); Bilirubin,Urine Negative (Negative); Blood,Urine Negative (Negative); Color,Urine Colorless; Glucose,Urine (UA) 4+ (Negative); Leukocyte Esterase,Urine Negative (Negative); Nitrite,Urine Negative (Negative); Protein,Urine Trace (Negative); Specific Gravity,Urine 1.024 (1.001-1.035); Urobilinogen,Urine <2.0 mg/dL (<2.0)
[2023-06-01 19:38] LABS: Ketones,Urine 4+ (Negative)
[2023-06-01 19:38] LABS: Glucose,Whole Blood >600 mg/dL (70-110)
[2023-06-01] MEDS ORDERED: ONDANSETRON 4 MG/2 ML VIAL IVP STA (19:41)
[2023-06-01 20:23] LABS: African American GFR (CKD) >90 (>60 ml/min/1.73 sqM); Blood Urea Nitrogen 24 mg/dL (9-20); Chloride 117 mmol/L (98-107); Non-African American GFR(CKD) >90 (>60 ml/min/1.73 sqM); Potassium 3.3 mmol/L (3.5-5.1); Sodium 142 mmol/L (137-145)
[2023-06-01 20:29] LABS: Glucose,Whole Blood >600 mg/dL (70-110)
[2023-06-01 20:54] LABS: Glucose,Whole Blood >600 mg/dL (70-110)
[2023-06-01 20:54] LABS: Carbon Dioxide <5 mmol/L (22-30); Glucose 588 mg/dL (74-99)
[2023-06-01 21:59] LABS: Glucose,Whole Blood 439 mg/dL (70-110)
[2023-06-01 23:10] LABS: Glucose,Whole Blood 316 mg/dL (70-110)
[2023-06-01] MEDS ORDERED: ONDANSETRON 4 MG/2 ML VIAL IVP PRN (23:53)
[2023-06-02] MEDS ORDERED: POTASSIUM CHLORIDE ER 20 MEQ TAB.ER PO SCH
[2023-06-02 00:08] LABS: Glucose,Whole Blood 211 mg/dL (70-110)
[2023-06-02] MEDS: POTASSIUM CHLORIDE 10 MEQ in WATER FOR INJECTION 1 100ML.BAG IVPB SCH ×2 (00:45→01:22)
[2023-06-02 01:18] LABS: African American GFR (CKD) >90 (>60 ml/min/1.73 sqM); Anion Gap 21 mmol/L; Blood Urea Nitrogen 37 mg/dL (9-20); Carbon Dioxide 12 mmol/L (22-30); Chloride 116 mmol/L (98-107); Glucose 203 mg/dL (74-99); Non-African American GFR(CKD) >90 (>60 ml/min/1.73 sqM); Sodium 149 mmol/L (137-145)
--- NOTE | 2023-06-02 01:18 | XR ---
EXAM: XR chest 1V portable CLINICAL INDICATION:Male, 33 years old with history of DKA; [facility] COMPARISON: 02/28/2023 TECHNIQUE: Chest single view. FINDINGS: Lines/tubes/devices: EKG leads overlie the chest. No indwelling lines are seen. Cardiomediastinum: Cardiac silhouette appears normal in size. Unremarkable mediastinal silhouette. Vasculature: No increased pulmonary vasculature. Lungs/pleura: Lungs appear well-inflated if not slightly overexpanded. No consolidation, sizable effusion, or pneum othorax. Bones/soft tissues: Bony thorax appears grossly intact as seen. Regional soft tissues appear unremarkable. IMPRESSION: No acute cardiopulmonary findings.
[2023-06-02 01:19] LABS: Glucose,Whole Blood 133 mg/dL (70-110)
[2023-06-02 01:19] LABS: Potassium 5.8 mmol/L (3.5-5.1)
[2023-06-02 02:17] LABS: Glucose,Whole Blood 115 mg/dL (70-110)
[2023-06-02 03:05] LABS: Glucose,Whole Blood 104 mg/dL (70-110)
[2023-06-02] MEDS: D5-0.45% NACL WITH KCL 20MEQ/L 1,000 ML IV SCH ×3 (03:27→17:57)
[2023-06-02 04:03] LABS: Glucose,Whole Blood 93 mg/dL (70-110)
[2023-06-02 04:35] LABS: Glucose,Whole Blood 124 mg/dL (70-110)
[2023-06-02 05:05] LABS: Glucose,Whole Blood 154 mg/dL (70-110)
[2023-06-02 06:14] LABS: Glucose,Whole Blood 199 mg/dL (70-110)
[2023-06-02 06:38] LABS: Glucose,Whole Blood 212 mg/dL (70-110)
[2023-06-02] MEDS ORDERED: Magnesium Replacement Protocol 1 EACH MISC MISCELLANE PRN (06:54)
[2023-06-02] MEDS ORDERED: DEXTROSE 50% SYRINGE 50 ML IVP PRN ×2 (06:54)
[2023-06-02] MEDS ORDERED: Potassium Replacement Protocol 1 EACH MISC MISCELLANE PRN (06:54)
[2023-06-02 07:02] LABS: HCT 37.8 % (39.0-53.0); MCH 31.6 pg (25.0-35.0); Mean Platelet Volume 7.8; Platelet Count 507 k/uL (150-450); RBC 3.94 m/uL (4.30-5.90); RDW 15.2 % (11.5-15.5)
[2023-06-02 07:05] LABS: HGB 12.5 gm/dL (13.0-17.5); MCV 95.9 fL (80.0-100.0)
[2023-06-02 07:15] LABS: ALT 36 U/L (4-49); AST 23 U/L (17-59); African American GFR (CKD) >90 (>60 ml/min/1.73 sqM); Albumin 3.2 g/dL (3.5-5.0); Alkaline Phosphatase 188 U/L (38-126); Anion Gap 13 mmol/L; Blood Urea Nitrogen 25 mg/dL (9-20); Calcium 8.3 mg/dL (8.4-10.2); Carbon Dioxide 18 mmol/L (22-30); Chloride 108 mmol/L (98-107); Glucose 212 mg/dL (74-99); Magnesium 1.9 mg/dL (1.6-2.3); Non-African American GFR(CKD) >90 (>60 ml/min/1.73 sqM); Potassium 4.3 mmol/L (3.5-5.1); Sodium 139 mmol/L (137-145); Total Bilirubin 0.5 mg/dL (0.2-1.3); Total Protein 5.9 g/dL (6.3-8.2)
--- NOTE | 2023-06-02 07:37 | P.CNPUL ---
History of Present Illness Consult date: 06/02/23 Requesting physician: Stef Sales Reason for consult: other (DKA) Chief complaint: High blood sugars and nausea and vomiting History of present illness: I am seeing this patient in consultation today the 06/02/2023 in the intensive care unit for acute diabetic ketoacidosis. Patient is a 33-year-old white male with past medical history significant for type 2 diabetes mellitus, medication noncompliance, diabetic neuropathy and gastroparesis, chronic bronchial asthma, hyperlipidemia, hypertension, depression, and current every day smoker. He currently does not follow with a primary care provider. Patient recently had a hospital visit back in February of this year for the same. Apparently, the patient lives at home with his ex- who administers his insulin. Despite his severely elevated blood glucose on arrival, he states that he has been taking his insulin. His blood sugars were reportedly elevated at home. He then developed intractable nausea and vomiting. His blood glucose was 1121 on arrival. Serum bicarb less than 5, anion gap unmeasurable, and acetone positive. VBG consistent with severe metabolic acidosis. Potassium was severely elevated on arrival at 6.4, and this has improved with correction of the patient's acidosis. Patient was started on the DKA protocol. He was reportedly confused and experiencing auditory hallucinations in the ER, this has resolved. Patient is currently lying in bed, on room air, in no acute distress. He denies any infectious symptoms such as fever, cough, shortness of breath, chest pain. Denies any significant abdominal pain, constipation, or diarrhea. Denies any urinary complaints. His nausea and vomiting has subsided, and he is tolerating small sips of water. Insulin is infusing per protocol. Normal saline is infusing at 200 ML's per hour. Most recent CBC on arrival shows a WBC count of 14.4, hemoglobin 15.5, hematocrit 56.7, platelets 601. Most recent BMP shows a sodium 142, potassium 3.3, chloride 117, serum bicarb less than 5, anion gap still unmeasurable, creatinine 0.67, glucose down to 588. Vital signs are stable. He will monitor in the intensive care unit until his DKA resolves. Review of Systems REVIEW OF SYSTEMS: CONSTITUTIONAL: Denies any recent significant weight loss or weight gain. EYES: Denies change in vision. EARS, NOSE, MOUTH, THROAT: Denies headaches, denies sore throat. CARDIOVASCULAR: Denies chest pain, palpitations or syncopal episodes. RESPIRATORY: Denies shortness of breath, cough, congestion or hemoptysis. GASTROINTESTINAL: Denies change in appetite, abdominal pain, diarrhea. Admits elevated blood sugars followed by nausea and vomiting. denies hematemesis GENITOURINARY: Denies hematuria, denies infections. MUSKULOSKELETAL: Denies pain, denies swelling. INTEGUMENTARY: Denies rash, denies eczema. NEUROLOGICAL: Denies recent memory loss, no recent seizure activity. PSYCHIATRIC: Denies anxiety, denies depression. HEMATOLOGIC/LYMPHATIC: Denies anemia, denies enlarged lymph node Past Medical History Past Medical History: Asthma, Diabetes Mellitus, Hyperlipidemia, Hypertension, Osteoarthritis (OA) Additional Past Medical History / Comment(s): IDDM type I, diabetic gastroparesis, neuropathy bilateral hands/fingers, migraines, arthrtitis fingers/knees, past R hand and L femur fractures. Previous DKA History of Any Multi-Drug Resistant Organisms: MRSA Date of last positivie culture/infection: 04/26/2014 MDRO Source:: Face Past Surgical History: Ear Surgery, Orthopedic Surgery Additional Past Surgical History / Comment(s): R hand surgery d/t fracture- pinned and pins since removed, L leg femur fracture with pin that eventually was removed, bilateral myringotomy with tubes/ear drum repairs.; Left pinky removal Past Anesthesia/Blood Transfusion Reactions: No Reported Reaction Past Psychological History: Anxiety, Bipolar, Depression Smoking Status: Current every day smoker Past Alcohol Use History: None Reported Past Drug Use History: Marijuana - Past Family History Father Family Medical History: Hyperlipidemia, Hypertension, Myocardial Infarction ([place]) Mother Family Medical History: COPD Additional Family Medical History / Comment(s): home O2, Brother(s) Family Medical History: No Reported History Medications and Allergies Home Medications Medication Instructions Recorded Confirmed Type Famotidine [Pepcid] 40 mg PO DAILY 30 Days #30 tablet 03/04/23 06/01/23 Rx INSULIN ASPART (NovoLOG) [NovoLOG 10 unit SQ AC-TID 04/18/23 06/01/23 History (formulary)] Insulin Glargine,Hum.rec.anlog 45 units SQ HS 04/18/23 06/01/23 History [Lantus Solostar Pen] carvediloL [Coreg] 6.25 mg PO BID 04/18/23 06/01/23 History Allergies Allergy/AdvReac Type Severity Reaction Status Date / Time latex Allergy Rash/Hives Verified 06/01/23 17:04 Physical Exam Vitals: Vital Signs Temp Pulse Resp BP Pulse Ox 06/02/23 00:00 97.6 F 117 H 17 150/99 99 06/01/23 23:30 120 H 17 139/96 98 06/01/23 23:00 128 H 19 161/111 99 06/01/23 22:30 118 H 16 157/106 99 06/01/23 22:00 125 H 14 146/91 100 06/01/23 21:30 126 H 28 H 139/103 100 06/01/23 21:14 117 H 16 139/103 100 06/01/23 20:30 97.7 F 129 H 14 134/109 100 06/01/23 20:28 125 H 20 134/109 100 06/01/23 19:38 128 H 20 144/99 100 06/01/23 18:17 121 H 22 97 06/01/23 16:04 128 H 18 121/80 91 L Intake and Output 06/01/23 06/01/23 06/02/23 14:59 22:59 06:59 Intake Total 2790.699 1001.441 Output Total 1400 500 Balance 1390.699 501.441 Intake: IV 2200 400 Sodium Chloride 0.9% 1, 200 400 000 ml @ 200 mls/hr IV . Q5H [facility] Rx#:[id number] Sodium Chloride 0.9% 1, 2000 000 ml @ 999 mls/hr IV . Q1H1M [facility] Rx#:[id number] Intake, IV Titration 20.699 31.441 Amount Insulin Regular 100 unit 20.699 31.441 In Sodium Chloride 0.9% 100 ml @ 0.1 UNITS/KG/HR 6.185 mls/hr IV .[id number] [facility] Rx#:[id number] Oral 570 570 Output: Urine 500 Emesis 1400 Other: Voiding Method Urinal Weight 61.235 kg GENERAL EXAM: Alert, 33-year-old white male, comfortable in no apparent distress. HEAD: Normocephalic and atraumatic EYES: Normal reaction of pupils, equal size. NOSE: Clear with pink turbinates. THROAT: No erythema or exudates. NECK: No masses, no JVD. CHEST: No chest wall deformity. LUNGS: Equal air entry with no crackles, wheeze, rhonchi or dullness. On room air. No conversational dyspnea or accessory muscle use.. CVS: S1 and S2 normal with no audible murmur, regular rhythm. No extra heart sounds. Tachycardic ABDOMEN: No hepatosplenomegaly, active bowel sounds, no guarding or rigidity. SPINE: No scoliosis or deformity SKIN: No rashes CENTRAL NERVOUS SYSTEM: No focal deficits, tone is normal in all 4 extremities. EXTREMITIES: There is no peripheral edema, clubbing, or cyanosis. Peripheral pulses are intact. Results - Laboratory Findings CBC and BMP: 06/02/23 06:33 06/02/23 06:33 Abnormal lab findings: Abnormal Labs 06/01/23 06/01/23 06/01/23 16:03 17:04 17:04 WBC 14.4 H Hct 56.7 H MCV 112.1 H D MCHC 27.3 L Plt Count 601 H Neutrophils # (Manual) 11.80 H Metamyelocytes # (Man) 0.14 H Myelocytes # (Manual) 0.14 H Macrocytosis Marked A VBG pH VBG HCO3 Sodium 134 L Potassium 6.4 H* Chloride 88 L Carbon Dioxide <5 L* BUN 33 H Creatinine 1.56 H Glucose 1121 H* POC Glucose (mg/dL) >600 H Magnesium 2.4 H ALT 50 H Alkaline Phosphatase 286 H Urine Protein Urine Glucose (UA) Urine Ketones 06/01/23 06/01/23 06/01/23 17:04 17:12 17:57 WBC Hct MCV MCHC Plt Count Neutrophils # (Manual) Metamyelocytes # (Man) Myelocytes # (Manual) Macrocytosis VBG pH 6.94 L* VBG HCO3 8 L* Sodium Potassium Chloride Carbon Dioxide BUN Creatinine Glucose POC Glucose (mg/dL) >600 H Magnesium ALT Alkaline Phosphatase Urine Protein Trace H Urine Glucose (UA) 4+ H Urine Ketones 4+ H 06/01/23 06/01/23 06/01/23 18:45 19:36 19:53 WBC Hct MCV MCHC Plt Count Neutrophils # (Manual) Metamyelocytes # (Man) Myelocytes # (Manual) Macrocytosis VBG pH VBG HCO3 Sodium Potassium 3.3 L Chloride 117 H Carbon Dioxide <5 L* BUN 24 H Creatinine Glucose 588 H* POC Glucose (mg/dL) >600 H >600 H Magnesium ALT Alkaline Phosphatase Urine Protein Urine Glucose (UA) Urine Ketones 06/01/23 06/01/23 06/01/23 20:27 20:52 21:58 WBC Hct MCV MCHC Plt Count Neutrophils # (Manual) Metamyelocytes # (Man) Myelocytes # (Manual) Macrocytosis VBG pH VBG HCO3 Sodium Potassium Chloride Carbon Dioxide BUN Creatinine Glucose POC Glucose (mg/dL) >600 H >600 H 439 H Magnesium ALT Alkaline Phosphatase Urine Protein Urine Glucose (UA) Urine Ketones 06/01/23 06/02/23 06/02/23 23:09 00:06 00:45 WBC Hct MCV MCHC Plt Count Neutrophils # (Manual) Metamyelocytes # (Man) Myelocytes # (Manual) Macrocytosis VBG pH VBG HCO3 Sodium 149 H Potassium 5.8 H Chloride 116 H Carbon Dioxide 12 L BUN 37 H Creatinine Glucose 203 H POC Glucose (mg/dL) 316 H 211 H Magnesium ALT Alkaline Phosphatase Urine Protein Urine Glucose (UA) Urine Ketones 06/02/23 01:18 WBC Hct MCV MCHC Plt Count Neutrophils # (Manual) Metamyelocytes # (Man) Myelocytes # (Manual) Macrocytosis VBG pH VBG HCO3 Sodium Potassium Chloride Carbon Dioxide BUN Creatinine Glucose POC Glucose (mg/dL) 133 H Magnesium ALT Alkaline Phosphatase Urine Protein Urine Glucose (UA) Urine Ketones - Diagnostic Findings Chest x-ray: image reviewed Assessment and Plan Assessment: Acute diabetic ketoacidosis, likely secondary to medication noncompliance Severe anion gap metabolic acidosis, secondary to above Hyperkalemia, improved Acute toxic metabolic encephalopathy, secondary to DKA, improved Leukocytosis, likely reactive, no obvious infectious etiology Severe dehydration Type 1 diabetes mellitus, with history of medication noncompliance History of diabetic neuropathy History of chronic bronchial asthma, stable Chronic ongoing tobacco dependence History of major depression and anxiety History of polysubstance abuse Plan: Patient's medications, labs, chest x-ray noted Continue DKA protocol Continue insulin infusion Electrolytes every 4 hours and replace potassium We will continue to monitor the patient in the intensive care unit until his DKA resolves I have personally seen and examined the patient, performed the documentation and the assessment and plan as written. Number of minutes spent on the visit:20 Time with Patient: Greater than 30
--- NOTE | 2023-06-02 07:52 | P.CNPUL ---
History of Present Illness Consult date: 06/02/23 Chief complaint: DKA History of present illness: History of Present Illness Consult date: 06/02/23 Requesting physician: Stef Sales Reason for consult: other (DKA) Chief complaint: High blood sugars and nausea and vomiting History of present illness: I am seeing this patient in consultation today the 06/02/2023 in the intensive care unit for acute diabetic ketoacidosis. Patient is a 33-year-old white male with past medical history significant for type 1 diabetes mellitus, medication noncompliance, diabetic neuropathy and gastroparesis, chronic bronchial asthma, hyperlipidemia, hypertension, depression, and current every day smoker. He currently does not follow with a primary care provider. Patient recently had a hospital visit back in February of this year for the same. Apparently, the patient lives at home with his ex- who administers his insulin. Despite his severely elevated blood glucose on arrival, he states that he has been taking his insulin. His blood sugars were reportedly elevated at home. He then developed intractable nausea and vomiting. His blood glucose was 1121 on arrival. Serum bicarb less than 5, anion gap unmeasurable, and acetone positive. VBG consistent with severe metabolic acidosis. Potassium was severely elevated on arrival at 6.4, and this has improved with correction of the patient's acidosis. Patient was started on the DKA protocol. He was reportedly confused and experiencing auditory hallucinations in the ER, this has resolved. Patient i s currently lying in bed, on room air, in no acute distress. He denies any infectious symptoms such as fever, cough, shortness of breath, chest pain. Denies any significant abdominal pain, constipation, or diarrhea. Denies any urinary complaints. His nausea and vomiting has subsided, and he is tolerating small sips of water. Insulin is infusing per protocol. Normal saline is infusing at 200 ML's per hour. Most recent CBC on arrival shows a WBC count of 14.4, hemoglobin 15.5, hematocrit 56.7, platelets 601. Most recent BMP shows a sodium 142, potassium 3.3, chloride 117, serum bicarb less than 5, anion gap still unmeasurable, creatinine 0.67, glucose down to 588. Vital signs are stab le. Had some sinus tachycardia and the patient was aggressively resuscitated with IV fluids in the emergency department and he received a total of 5 L of saline bolus. His most recent x-rays from this morning show a serum bicarb of 18 with an anion gap of 13. Blood sugars at 212. Sodiums of 139. The white cell count is 20 with a hemoglobin of 12.5. The patient remains on an insulin drip per protocol. Sinus tachycardia is improved considerably and the heart rate improved since yesterday. No significant fever at this point in time. Review of Systems REVIEW OF SYSTEMS: CONSTITUTIONAL: Denies any recent significant weight loss or weight gain. EYES: Denies change in vision. EARS, NOSE, MOUTH, THROAT: Denies headaches, denies sore throat. CARDIOVASCULAR: Denies chest pain, palpitations or syncopal episodes. RESPIRATORY: Denies shortness of breath, cough, congestion or hemoptysis. GASTROINTESTINAL: Denies change in appetite, abdominal pain, diarrhea. Admits elevated blood sugars followed by nausea and vomiting. denies hematemesis GENITOURINARY: Denies hematuria, denies infections. MUSKULOSKELETAL: Denies pain, denies swelling. INTEGUMENTARY: Denies rash, denies eczema. NEUROLOGICAL: Denies recent memory loss, no recent seizure activity. PSYCHIATRIC: Denies anxiety, denies depression. HEMATOLOGIC/LYMPHATIC: Denies anemia, denies enlarged lymph node Past Medical History Past Medical History: Asthma, Diabetes Mellitus, Hyperlipidemia, Hypertension, Osteoarthritis (OA) Additional Past Medical History / Comment(s): IDDM type I, diabetic g astroparesis, neuropathy bilateral hands/fingers, migraines, arthrtitis fingers/knees, past R hand and L femur fractures. Previous DKA History of Any Multi-Drug Resistant Organisms: MRSA Date of last positivie culture/infection: 04/26/2014 MDRO Source:: Face Past Surgical History: Ear Surgery, Orthopedic Surgery Additional Past Surgical History / Comment(s): R hand surgery d/t fracture- pinned and pins since removed, L leg femur fracture with pin that eventually was removed, bilateral myringotomy with tubes/ear drum repairs.; Left pinky removal Past Anesthesia/Blood Transfusion Reactions: No Reported Reaction Past Psychological History: Anxiety, Bipolar, Depression Smoking Status: Current every day smoker Past Alcohol Use History: None Reported Past Drug Use History: Marijuana - Past Family History Father Family Medical History: Hyperlipidemia, Hypertension, Myocardial Infarction ([place]) Mother Family Medical History: COPD Additional Family Medical History / Comment(s): home O2, Brother(s) Family Medical History: No Reported History Medications and Allergies Home Medications Medication Instructions Recorded Confirmed Type Famotidine [Pepcid] 40 mg PO DAILY 30 Days #30 tablet 03/04/23 06/01/23 Rx INSULIN ASPART (NovoLOG) [NovoLOG 10 unit SQ AC-TID 04/18/23 06/01/23 History (formulary)] Insulin Glargine,Hum.rec.anlog 45 units SQ HS 04/18/23 06/01/23 History [Lantus Solostar Pen] carvediloL [Coreg] 6.25 mg PO BID 04/18/23 06/01/23 History Allergies Allergy/AdvReac Type Severity Reaction Status Date / Time latex Allergy Rash/Hives Verified 06/01/23 17:04 Physical Exam Vitals: Vital Signs Temp Pulse Resp BP Pulse Ox 06/02/23 00:00 97.6 F 117 H 17 150/99 99 06/01/23 23:30 120 H 17 139/96 98 06/01/23 23:00 128 H 19 161/111 99 06/01/23 22:30 118 H 16 157/106 99 06/01/23 22:00 125 H 14 146/91 100 06/01/23 21:30 126 H 28 H 139/103 100 06/01/23 21:14 117 H 16 139/103 100 06/01/23 20:30 97.7 F 129 H 14 134/109 100 06/01/23 20:28 125 H 20 134/109 100 06/01/23 19:38 128 H 20 144/99 100 06/01/23 18:17 121 H 22 97 06/01/23 16:04 128 H 18 121/80 91 L Intake and Output 06/01/23 06/01/23 06/02/23 14:59 22:59 06:59 Intake Total 2790.699 1001.441 Output Total 1400 500 Balance 1390.699 501.441 Intake: IV 2200 400 Sodium Chloride 0.9% 1, 200 400 000 ml @ 200 mls/hr IV . Q5H [facility] Rx#:[id number] Sodium Chloride 0.9% 1, 2000 000 ml @ 999 mls/hr IV . Q1H1M ONE Rx#:[id number] Intake, IV Titration 20.699 31.441 Amount Insulin Regular 100 unit 20.69 31.441 In Sodium Chloride 0.9% 100 ml @ 0.1 UNITS/KG/HR 6.185 mls/hr IV .[id number] [facility] Rx#:[id number] Oral 570 570 Output: Urine 500 Emesis 1400 Other: Voiding Method Urinal Weight 61.235 kg GENERAL EXAM: Alert, 33-year-old white male, comfortable in no apparent distress. HEAD: Normocephalic and atraumatic EYES: Normal reaction of pupils, equal size. NOSE: Clear with pink turbinates. THROAT: No erythema or exudates. NECK: No masses, no JVD. CHEST: No chest wall deformity. LUNGS: Equal air entry with no crackles, wheeze, rhonchi or dullness. On room air. No conversational dyspnea or accessory muscle use.. CVS: S1 and S2 normal with no audible murmur, regular rhythm. No extra heart sounds. Tachycardic ABDOMEN: No hepatosplenomegaly, active bowel sounds, no guarding or rigidity. SPINE: No scoliosis or deformity SKIN: No rashes CENTRAL NERVOUS SYSTEM: No focal deficits, tone is normal in all 4 extremities. EXTREMITIES: There is no peripheral edema, clubbing, or cyanosis. Peripheral pulses are intact. Results - Laboratory Findings CBC and BMP: 06/02/23 06:33 06/02/23 06:33 Abnormal lab findings: Abnormal Labs 06/01/23 06/01/23 06/01/23 16:03 17:04 17:04 WBC 14.4 H Hct 56.7 H MCV 112.1 H D MCHC 27.3 L Plt Count 601 H Neutrophils # (Manual) 11.80 H Metamyelocytes # (Man) 0.14 H Myelocytes # (Manual) 0.14 H Macrocytosis Marked A VBG pH VBG HCO3 Sodium 134 L Potassium 6.4 H* Chloride 88 L Carbon Dioxide <5 L* BUN 33 H Creatinine 1.56 H Glucose 1121 H* POC Glucose (mg/dL) >600 H Magnesium 2.4 H ALT 50 H Alkaline Phosphatase 286 H Urine Protein Urine Glucose (UA) Urine Ketones 06/01/23 06/01/23 06/01/23 17:04 17:12 17:57 WBC Hct MCV MCHC Plt Count Neutrophils # (Manual) Metamyelocytes # (Man) Myelocytes # (Manual) Macrocytosis VBG pH 6.94 L* VBG HCO3 8 L* Sodium Potassium Chloride Carbon Dioxide BUN Creatinine Glucose POC Glucose (mg/dL) >600 H Magnesium ALT Alkaline Phosphatase Urine Protein Trace H Urine Glucose (UA) 4+ H Urine Ketones 4+ H 06/01/23 06/01/23 06/01/23 18:45 19:36 19:53 WBC Hct MCV MCHC Plt Count Neutrophils # (Manual) Metamyelocytes # (Man) Myelocytes # (Manual) Macrocytosis VBG pH VBG HCO3 Sodium Potassium 3.3 L Chloride 117 H Carbon Dioxide <5 L* BUN 24 H Creatinine Glucose 588 H* POC Glucose (mg/dL) >600 H >600 H Magnesium ALT Alkaline Phosphatase Urine Protein Urine Glucose (UA) Urine Ketones 06/01/23 06/01/23 06/01/23 20:27 20:52 21:58 WBC Hct MCV MCHC Plt Count Neutrophils # (Manual) Metamyelocytes # (Man) Myelocytes # (Manual) Macrocytosis VBG pH VBG HCO3 Sodium Potassium Chloride Carbon Dioxide BUN Creatinine Glucose POC Glucose (mg/dL) >600 H >600 H 439 H Magnesium ALT Alkaline Phosphatase Urine Protein Urine Glucose (UA) Urine Ketones 06/01/23 06/02/23 06/02/23 23:09 00:06 00:45 WBC Hct MCV MCHC Plt Count Neutrophils # (Manual) Metamyelocytes # (Man) Myelocytes # (Manual) Macrocytosis VBG pH VBG HCO3 Sodium 149 H Potassium 5.8 H Chloride 116 H Carbon Dioxide 12 L BUN 37 H Creatinine Glucose 203 H POC Glucose (mg/dL) 316 H 211 H Magnesium ALT Alkaline Phosphatase Urine Protein Urine Glucose (UA) Urine Ketones 06/02/23 01:18 WBC Hct MCV MCHC Plt Count Neutrophils # (Manual) Metamyelocytes # (Man) Myelocytes # (Manual) Macrocytosis VBG pH VBG HCO3 Sodium Potassium Chloride Carbon Dioxide BUN Creatinine Glucose POC Glucose (mg/dL) 133 H Magnesium ALT Alkaline Phosphatase Urine Protein Urine Glucose (UA) Urine Ketones - Diagnostic Findings Chest x-ray: image reviewed Assessment and Plan Assessment: Acute diabetic ketoacidosis, likely secondary to medication noncompliance, improving and there is improvement in his anion gap since yesterday. Serum bicarb is gradually improved and the patient has some mild Ongoing and the patient is still being treated for DKA per protocol. Severe anion gap metabolic acidosis, secondary to above Hyperkalemia, improved Acute toxic metabolic encephalopathy, secondary to DKA, improved Leukocytosis, likely reactive, no obvious infectious etiology Severe dehydration with secondary sinus tachycardia, improved the patient was tested with a total of 5 L of IV fluid Type 1 diabetes mellitus, with history of medication noncompliance History of diabetic neuropathy History of chronic bronchial asthma, stable Chronic ongoing tobacco dependence History of major depression and anxiety History of polysubstance abuse Plan: Keep the patient in intensive care unit for treatment of DKA per protocol Continue DKA protocol Continue insulin infusion Electrolytes every 4 hours and replace potassium We will await another set of electrolytes and if there is further improvement acidosis and anion gap, we'll transition this patient to long-acting insulin We will continue to monitor the patient in the intensive care unit until his DKA resolves Diabetic education Check an HbA1c Continue to follow Past Medical History Past Medical History: Asthma, Diabetes Mellitus, Hyperlipidemia, Hypertension, Osteoarthritis (OA) Additional Past Medical History / Comment(s): IDDM type I, diabetic gastroparesis, neuropathy bilateral hands/fingers, migraines, arthrtitis fingers/knees, past R hand and L femur fractures. Previous DKA History of Any Multi-Drug Resistant Organisms: MRSA Date of last positivie culture/infection: 04/26/2014 MDRO Source:: Face Past Surgical History: Ear Surgery, Orthopedic Surgery Additional Past Surgical History / Comment(s): R hand surgery d/t fracture- pinned and pins since removed, L leg femur fracture with pin that eventually was removed, bilateral myringotomy with tubes/ear drum repairs.; Left pinky removal Past Anesthesia/Blood Transfusion Reactions: No Reported Reaction Past Psychological History: Anxiety, Bipolar, Depression Smoking Status: Current every day smoker Past Alcohol Use History: None Reported Past Drug Use History: Marijuana - Past Family History Father Family Medical History: Hyperlipidemia, Hypertension, Myocardial Infarction ([place]) Mother Family Medical History: COPD Additional Family Medical History / Comment(s): home O2, Brother(s) Family Medical History: No Reported History Medications and Allergies Home Medications Medication Instructions Recorded Confirmed Type Famotidine [Pepcid] 40 mg PO DAILY 30 Days #30 tablet 03/04/23 06/01/23 Rx INSULIN ASPART (NovoLOG) [NovoLOG 10 unit SQ AC-TID 04/18/23 06/01/23 History (formulary)] Insulin Glargine,Hum.rec.anlog 45 units SQ HS 04/18/23 06/01/23 History [Lantus Solostar Pen] carvediloL [Coreg] 6.25 mg PO BID 04/18/23 06/01/23 History Allergies Allergy/AdvReac Type Severity Reaction Status Date / Time latex Allergy Rash/Hives Verified 06/01/23 17:04 Physical Exam Vitals: Vital Signs Temp Pulse Resp BP Pulse Ox 06/02/23 06:00 93 17 150/100 98 06/02/23 05:30 93 17 139/94 06/02/23 05:00 94 15 128/86 97 06/02/23 04:30 96 15 137/97 99 06/02/23 04:00 97.7 F 96 16 152/102 98 06/02/23 03:30 96 16 137/93 99 06/02/23 03:00 99 15 137/94 94 L 06/02/23 02:30 97 15 135/86 98 06/02/23 02:00 101 H 17 132/86 99 06/02/23 01:31 101 H 16 132/86 98 06/02/23 01:00 101 H 17 157/97 99 06/02/23 00:30 105 H 16 150/99 97 06/02/23 00:07 117 H 17 150/99 99 06/02/23 00:00 97.6 F 117 H 17 150/99 99 06/01/23 23:30 120 H 17 139/96 98 06/01/23 23:00 128 H 19 161/111 99 06/01/23 22:30 118 H 16 157/106 99 06/01/23 22:00 125 H 14 146/91 100 06/01/23 21:30 126 H 28 H 139/103 100 06/01/23 21:14 117 H 16 139/103 100 06/01/23 20:30 97.7 F 129 H 14 134/109 100 06/01/23 20:28 125 H 20 134/109 100 06/01/23 19:38 128 H 20 144/99 100 06/01/23 18:17 121 H 22 97 06/01/23 16:04 128 H 18 121/80 91 L Intake and Output 06/01/23 06/02/23 06/02/23 22:59 06:59 14:59 Intake Total 2790.699 1879.299 Output Total 1400 750 Balance 6361.453 8865.299 Intake: IV 2200 1270 D5-0.45% NaCl with KCl 450 20Meq/l 1,000 ml @ 150 mls/hr IV .[id number] [facility] Rx# :[id number] Sodium Chloride 0.9% 1, 200 820 000 ml @ 200 mls/hr IV . Q5H [facility] Rx#:[id number] Sodium Chloride 0.9% 1, 2000 000 ml @ 999 mls/hr IV . Q1H1M [facility] Rx#:[id number] Intake, IV Titration 20.699 39.299 Amount Insulin Regular 100 unit 20.699 39.299 In Sodium Chloride 0.9% 100 ml @ 0.1 UNITS/KG/HR 6.185 mls/hr IV .[id number] [facility] Rx#:[id number] Oral 570 570 Output: Urine 750 Emesis 1400 Other: Voiding Method Urinal # Voids 1 Weight 61.235 kg 56.4 kg Results - Laboratory Findings CBC and BMP: 06/02/23 06:33 06/02/23 06:33 Abnormal lab findings: Abnormal Labs 06/01/23 06/01/23 06/01/23 16:03 17:04 17:04 WBC 14.4 H RBC Hgb Hct 56.7 H MCV 112.1 H D MCHC 27.3 L Plt Count 601 H Neutrophils # (Manual) 11.80 H Metamyelocytes # (Man) 0.14 H Myelocytes # (Manual) 0.14 H Macrocytosis Marked A VBG pH VBG HCO3 Sodium 134 L Potassium 6.4 H* Chloride 88 L Carbon Dioxide <5 L* BUN 33 H Creatinine 1.56 H Glucose 1121 H* POC Glucose (mg/dL) >600 H Calcium Magnesium 2.4 H ALT 50 H Alkaline Phosphatase 286 H Total Protein Albumin Urine Protein Urine Glucose (UA) Urine Ketones 06/01/23 06/01/23 06/01/23 17:04 17:12 17:57 WBC RBC Hgb Hct MCV MCHC Plt Count Neutrophils # (Manual) Metamyelocytes # (Man) Myelocytes # (Manual) Macrocytosis VBG pH 6.94 L* VBG HCO3 8 L* Sodium Potassium Chloride Carbon Dioxide BUN Creatinine Glucose POC Glucose (mg/dL) >600 H Calcium Magnesium ALT Alkaline Phosphatase Total Protein Albumin Urine Protein Trace H Urine Glucose (UA) 4+ H Urine Ketones 4+ H 06/01/23 06/01/23 06/01/23 18:45 19:36 19:53 WBC RBC Hgb Hct MCV MCHC Plt Count Neutrophils # (Manual) Metamyelocytes # (Man) Myelocytes # (Manual) Macrocytosis VBG pH VBG HCO3 Sodium Potassium 3.3 L Chloride 117 H Carbon Dioxide <5 L* BUN 24 H Creatinine Glucose 588 H* POC Glucose (mg/dL) >600 H >600 H Calcium Magnesium ALT Alkaline Phosphatase Total Protein Albumin Urine Protein Urine Glucose (UA) Urine Ketones 06/01/23 06/01/23 06/01/23 20:27 20:52 21:58 WBC RBC Hgb Hct MCV MCHC Plt Count Neutrophils # (Manual) Metamyelocytes # (Man) Myelocytes # (Manual) Macrocytosis VBG pH VBG HCO3 Sodium Potassium Chloride Carbon Dioxide BUN Creatinine Glucose POC Glucose (mg/dL) >600 H >600 H 439 H Calcium Magnesium ALT Alkaline Phosphatase Total Protein Albumin Urine Protein Urine Glucose (UA) Urine Ketones 06/01/23 06/02/23 06/02/23 23:09 00:06 00:45 WBC RBC Hgb Hct MCV MCHC Plt Count Neutrophils # (Manual) Metamyelocytes # (Man) Myelocytes # (Manual) Macrocytosis VBG pH VBG HCO3 Sodium 149 H Potassium 5.8 H Chloride 116 H Carbon Dioxide 12 L BUN 37 H Creatinine Glucose 203 H POC Glucose (mg/dL) 316 H 211 H Calcium Magnesium ALT Alkaline Phosphatase Total Protein Albumin Urine Protein Urine Glucose (UA) Urine Ketones 06/02/23 06/02/23 06/02/23 01:18 02:15 04:33 WBC RBC Hgb Hct MCV MCHC Plt Count Neutrophils # (Manual) Metamyelocytes # (Man) Myelocytes # (Manual) Macrocytosis VBG pH VBG HCO3 Sodium Potassium Chloride Carbon Dioxide BUN Creatinine Glucose POC Glucose (mg/dL) 133 H 115 H 124 H Calcium Magnesium ALT Alkaline Phosphatase Total Protein Albumin Urine Protein Urine Glucose (UA) Urine Ketones 06/02/23 06/02/23 06/02/23 05:04 06:13 06:33 WBC 20.0 H RBC 3.94 L Hgb 12.5 L D Hct 37.8 L MCV MCHC Plt Count 507 H Neutrophils # (Manual) Metamyelocytes # (Man) Myelocytes # (Manual) Macrocytosis VBG pH VBG HCO3 Sodium Potassium Chloride Carbon Dioxide BUN Creatinine Glucose POC Glucose (mg/dL) 154 H 199 H Calcium Magnesium ALT Alkaline Phosphatase Total Protein Albumin Urine Protein Urine Glucose (UA) Urine Ketones 06/02/23 06/02/23 06:33 06:37 WBC RBC Hgb Hct MCV MCHC Plt Count Neutrophils # (Manual) Metamyelocytes # (Man) Myelocytes # (Manual) Macrocytosis VBG pH VBG HCO3 Sodium Potassium Chloride 108 H Carbon Dioxide 18 L BUN 25 H Creatinine 0.52 L Glucose 212 H POC Glucose (mg/dL) 212 H Calcium 8.3 L Magnesium ALT Alkaline Phosphatase 188 H Total Protein 5.9 L Albumin 3.2 L Urine Protein Urine Glucose (UA) Urine Ketones
[2023-06-02] MEDS ORDERED: MAGNESIUM SULFATE-D5W PMX 1 GM in DEXTROSE/WATER 1 100ML.BAG IVPB ONE (07:58)
[2023-06-02 08:21] LABS: Glucose,Whole Blood 224 mg/dL (70-110)
[2023-06-02 09:13] LABS: Glucose,Whole Blood 272 mg/dL (70-110)
[2023-06-02] MEDS ORDERED: PANTOPRAZOLE 40 MG TABLET PO SCH (09:30)
[2023-06-02 10:07] LABS: Glucose,Whole Blood 255 mg/dL (70-110)
[2023-06-02 11:02] VITALS: BMI 17.8
[2023-06-02 11:04] LABS: Glucose,Whole Blood 253 mg/dL (70-110)
[2023-06-02] MEDS: INSULIN REGULAR 100 UNIT in SODIUM CHLORIDE 0.9% 100 ML IV SCH (11:37)
[2023-06-02] MEDS: PANTOPRAZOLE 40 MG/10 ML VIAL IVP SCH (11:47)
[2023-06-02 12:01] LABS: Glucose,Whole Blood 191 mg/dL (70-110)
[2023-06-02 13:06] LABS: Glucose,Whole Blood 175 mg/dL (70-110)
[2023-06-02 14:11] LABS: Glucose,Whole Blood 232 mg/dL (70-110)
[2023-06-02 14:17] LABS: Glucose,Whole Blood 279 mg/dL (70-110)
--- NOTE | 2023-06-02 14:32 | P.HPIM ---
History of Present Illness H&P Date: 06/02/23 This is a 33 year old male with medical history of asthma, diabetes mellitus type 1 insulin dependent, hypertension, hyperlipidemia, anxiety, depression, bipolar, daily smoker, occasional marijuana use. Patient comes in from home noticed that his blood glucose was elevated. He also complains of fever and nausea with vomiting at home. No diarrhea, no cough or congestion, no shortness of breath. He states that his kids have been sick at home. On admission blood glucose elevated at 1121 and 588, anion gap undetectable and CO2 of less than 5. Acetone positive. He states he has been compliant with his insulin. He was admitted to the hospital in the intensive care unit with DKA. Started on insulin gtt. Currently he is awake alert. Anion gap has improved to 13, and CO2 at 18. Blood glucose improved to the low 200s. REVIEW OF SYSTEMS: CONSTITUTIONAL: No fever, no malaise, no fatigue. HEENT: No recent visual problems or hearing problems. Denied any sore throat. CARDIOVASCULAR: No chest pain, orthopnea, PND, no palpitations, no syncope. PULMONARY: No shortness of breath, no cough, no hemoptysis. GASTROINTESTINAL: No diarrhea, no nausea, no vomiting, no abdominal pain. NEUROLOGICAL: No headaches, no weakness, no numbness. HEMATOLOGICAL: Denies any bleeding or petechiae. GENITOURINARY: Denies any burning micturition, frequency, or urgency. MUSCULOSKELETAL/RHEUMATOLOGICAL: Denies any joint pain, swelling, or any muscle pain. ENDOCRINE: Denies any polyuria or polydipsia. The rest of the 14-point review of systems is negative. PHYSICAL EXAMINATION: GENERAL: The patient is alert and oriented x3, not in any acute distress. Well developed, well nourished. HEENT: Pupils are round and equally reacting to light. EOMI. No scleral icterus. No conjunctival pallor. Normocephalic, atraumatic. No pharyngeal erythema. No thyromegaly. CARDIOVASCULAR: S1 and S2 present. No murmurs, rubs, or gallops. PULMONARY: Chest is clear to auscultation, no wheezing or crackles. ABDOMEN: Soft, nontender, nondistended, normoactive bowel sounds. No palpable organomegaly. MUSCULOSKELETAL: No joint swelling or deformity. EXTREMITIES: No cyanosis, clubbing, or pedal edema. NEUROLOGICAL: Gross neurological examination did not reveal any focal deficits. SKIN: No rashes. Assessment and Plan Insulin dependent diabetes mellitus with diabetic ketoacidosis admitted to the ICU with insulin gtt and fluids expected to improve and will be transitioned off the insulin gtt once anion gap closes. Next lab draw at 1430 Patient is currently NPO. Anion gap metabolic acidosis secondary to diabetic ketoacidosis. Expected to improve with treatment of the DKA patient started on dextrose 1/2 normal saline Acute kidney injury prerenal secondary to nasuea/vomiting and severe dehydration Hyperkalemia improved with hydration and treatment of the acidosis Reactive leukocytosis Diabetes Mellitus type 1 Hx of asthma with no acute exacerbation patient does not appear to be using a rescue inhaler at home. Hypertension patient is resumed on home dose of carvedilol Hx of hyperlipidemia Diabetic neuropathy Anxiety/Depression/Bipolar not an active issue Chronic nicotine use counseled on smoking cessation declined the use of nicotine patch Marijuana use GI prophylaxis on protonix Full code The impression and plan of care has been dictated by Chyna Novoa, Nurse Practitioner as directed. Dr. Jae MD I have performed a history and physical examination and medical decision making of this patient, discussed the same with the dictator, and agree with the dictators assessment and plan as written, documented as a scribe. Based on total visit time, I have performed more than 50% of this visit. Past Medical History Past Medical History: Asthma, Diabetes Mellitus, Hyperlipidemia, Hypertension, Osteoarthritis (OA) Additional Past Medical History / Comment(s): IDDM type I, diabetic ga stroparesis, neuropathy bilateral hands/fingers, migraines, arthrtitis fingers/knees, past R hand and L femur fractures. Previous DKA History of Any Multi-Drug Resistant Organisms: MRSA Date of last positivie culture/infection: 04/26/2014 MDRO Source:: Face Past Surgical History: Ear Surgery, Orthopedic Surgery Additional Past Surgical History / Comment(s): R hand surgery d/t fracture- pinned and pins since removed, L leg femur fracture with pin that eventually was removed, bilateral myringotomy with tubes/ear drum repairs.; Left pinky removal Past Anesthesia/Blood Transfusion Reactions: No Reported Reaction Past Psychological History: Anxiety, Bipolar, Depression Smoking Status: Current every day smoker Past Alcohol Use History: None Reported Past Drug Use History: Marijuana - Past Family History Father Family Medical History: Hyperlipidemia, Hypertension, Myocardial Infarction ([place]) Mother Family Medical History: COPD Additional Family Medical History / Comment(s): home O2, Brother(s) Family Medical History: No Reported History Medications and Allergies Home Medications Medication Instructions Recorded Confirmed Type Famotidine [Pepcid] 40 mg PO DAILY 30 Days #30 tablet 03/04/23 06/01/23 Rx INSULIN ASPART (NovoLOG) [NovoLOG 10 unit SQ AC-TID 04/18/23 06/01/23 History (formulary)] Insulin Glargine,Hum.rec.anlog 45 units SQ HS 04/18/23 06/01/23 History [Lantus Solostar Pen] carvediloL [Coreg] 6.25 mg PO BID 04/18/23 06/01/23 History Allergies Allergy/AdvReac Type Severity Reaction Status Date / Time latex Allergy Rash/Hives Verified 06/01/23 17:04 Physical Exam Vitals: Vital Signs Temp Pulse Resp BP Pulse Ox 06/02/23 09:00 97.7 F 85 17 99 06/02/23 08:30 93 19 147/97 97 06/02/23 08:00 94 116/77 97 06/02/23 07:30 91 116/77 98 06/02/23 07:00 89 141/95 98 06/02/23 06:30 90 15 136/94 97 06/02/23 06:00 93 17 150/100 98 06/02/23 05:30 93 17 139/94 06/02/23 05:00 94 15 128/86 97 06/02/23 04:30 96 15 137/97 99 06/02/23 04:00 97.7 F 96 16 152/102 98 06/02/23 03:30 96 16 137/93 99 06/02/23 03:00 99 15 137/94 94 L 06/02/23 02:30 97 15 135/86 98 06/02/23 02:00 101 H 17 132/86 99 06/02/23 01:31 101 H 16 132/86 98 06/02/23 01:00 101 H 17 157/97 99 06/02/23 00:30 105 H 16 150/99 97 06/02/23 00:07 117 H 17 150/99 99 06/02/23 00:00 97.6 F 117 H 17 150/99 99 06/01/23 23:30 120 H 17 139/96 98 06/01/23 23:00 128 H 19 161/111 99 06/01/23 22:30 118 H 16 157/106 99 06/01/23 22:00 125 H 14 146/91 100 06/01/23 21:30 126 H 28 H 139/103 100 06/01/23 21:14 117 H 16 139/103 100 06/01/23 20:30 97.7 F 129 H 14 134/109 100 06/01/23 20:28 125 H 20 134/109 100 06/01/23 19:38 128 H 20 144/99 100 06/01/23 18:17 121 H 22 97 06/01/23 16:04 128 H 18 121/80 91 L Intake and Output 06/01/23 06/02/23 06/02/23 22:59 06:59 14:59 Intake Total 2790.699 1879.299 552.781 Output Total 1400 750 500 Balance 4374.664 3663.299 52.781 Intake: IV 2200 1270 450 D5-0.45% NaCl with KCl 450 450 20Meq/l 1,000 ml @ 150 mls/hr IV .Q6H40M [facility] Rx# :[id number] Sodium Chloride 0.9% 1, 200 820 000 ml @ 200 mls/hr IV . Q5H [facility] Rx#:[id number] Sodium Chloride 0.9% 1, 2000 000 ml @ 999 mls/hr IV . Q1H1M ONE Rx#:[id number] Intake, IV Titration 20.699 39.299 102.781 Amount Insulin Regular 100 unit 20.699 39.299 2.781 In Sodium Chloride 0.9% 100 ml @ 0.1 UNITS/KG/HR 6.185 mls/hr IV .[id number] [facility] Rx#:[id number] Magnesium Sulfate-D5w Pmx 100 1 gm In Dextrose/Water 1 100ml.bag @ 100 mls/hr IVPB ONCE ONE Rx#: [id number] Oral 570 570 Output: Urine 750 500 Emesis 1400 Other: Voiding Method Urinal Urinal # Voids 1 Weight 61.235 kg 56.4 kg Results CBC & Chem 7: 06/02/23 06:33 12/28/23 06:33 Labs: Abnormal Lab Results - Last 24 Hours (Table) 06/01/23 06/01/23 06/01/23 Range/Units 16:03 17:04 17:04 WBC 14.4 H (3.8-10.6) k/uL RBC (4.30-5.90) m/uL Hgb (13.0-17.5) gm/dL Hct 56.7 H (39.0-53.0) % MCV 112.1 H D (80.0-100.0) fL MCHC 27.3 L (31.0-37.0) g/dL Plt Count 601 H (150-450) k/uL Neutrophils # (Manual) 11.80 H (1.3-7.7) k/uL Metamyelocytes # (Man) 0.14 H (0) k/uL Myelocytes # (Manual) 0.14 H (0) k/uL Macrocytosis Marked A VBG pH (7.31-7.41) VBG HCO3 (24-28) mmol/L Sodium 134 L (137-145) mmol/L Potassium 6.4 H* (3.5-5.1) mmol/L Chloride 88 L (98-107) mmol/L Carbon Dioxide <5 L* (22-30) mmol/L BUN 33 H (9-20) mg/dL Creatinine 1.56 H (0.66-1.25) mg/dL Glucose 1121 H* (74-99) mg/dL POC Glucose (mg/dL) >600 H (70-110) mg/dL Calcium (8.4-10.2) mg/dL Magnesium 2.4 H (1.6-2.3) mg/dL ALT 50 H (4-49) U/L Alkaline Phosphatase 286 H (38-126) U/L Total Protein (6.3-8.2) g/dL Albumin (3.5-5.0) g/dL Urine Protein (Negative) Urine Glucose (UA) (Negative) Urine Ketones (Negative) 06/01/23 06/01/23 06/01/23 Range/Units 17:04 17:12 17:57 WBC (3.8-10.6) k/uL RBC (4.30-5.90) m/uL Hgb (13.0-17.5) gm/dL Hct (39.0-53.0) % MCV (80.0-100.0) fL MCHC (31.0-37.0) g/dL Plt Count (150-450) k/uL Neutrophils # (Manual) (1.3-7.7) k/uL Metamyelocytes # (Man) (0) k/uL Myelocytes # (Manual) (0) k/uL Macrocytosis VBG pH 6.94 L* (7.31-7.41) VBG HCO3 8 L* (24-28) mmol/L Sodium (137-145) mmol/L Potassium (3.5-5.1) mmol/L Chloride (98-107) mmol/L Carbon Dioxide (22-30) mmol/L BUN (9-20) mg/dL Creatinine (0.66-1.25) mg/dL Glucose (74-99) mg/dL POC Glucose (mg/dL) >600 H (70-110) mg/dL Calcium (8.4-10.2) mg/dL Magnesium (1.6-2.3) mg/dL ALT (4-49) U/L Alkaline Phosphatase (38-126) U/L Total Protein (6.3-8.2) g/dL Albumin (3.5-5.0) g/dL Urine Protein Trace H (Negative) Urine Glucose (UA) 4+ H (Negative) Urine Ketones 4+ H (Negative) 06/01/23 06/01/23 06/01/23 Range/Units 18:45 19:36 19:53 WBC (3.8-10.6) k/uL RBC (4.30-5.90) m/uL Hgb (13.0-17.5) gm/dL Hct (39.0-53.0) % MCV (80.0-100.0) fL MCHC (31.0-37.0) g/dL Plt Count (150-450) k/uL Neutrophils # (Manual) (1.3-7.7) k/uL Metamyelocytes # (Man) (0) k/uL Myelocytes # (Manual) (0) k/uL Macrocytosis VBG pH (7.31-7.41) VBG HCO3 (24-28) mmol/L Sodium (137-145) mmol/L Potassium 3.3 L (3.5-5.1) mmol/L Chloride 117 H (98-107) mmol/L Carbon Dioxide <5 L* (22-30) mmol/L BUN 24 H (9-20) mg/dL Creatinine (0.66-1.25) mg/dL Glucose 588 H* (74-99) mg/dL POC Glucose (mg/dL) >600 H >600 H (70-110) mg/dL Calcium (8.4-10.2) mg/dL Magnesium (1.6-2.3) mg/dL ALT (4-49) U/L Alkaline Phosphatase (38-126) U/L Total Protein (6.3-8.2) g/dL Albumin (3.5-5.0) g/dL Urine Protein (Negative) Urine Glucose (UA) (Negative) Urine Ketones (Negative) 06/01/23 06/01/23 06/01/23 Range/Units 20:27 20:52 21:58 WBC (3.8-10.6) k/uL RBC (4.30-5.90) m/uL Hgb (13.0-17.5) gm/dL Hct (39.0-53.0) % MCV (80.0-100.0) fL MCHC (31.0-37.0) g/dL Plt Count (150-450) k/uL Neutrophils # (Manual) (1.3-7.7) k/uL Metamyelocytes # (Man) (0) k/uL Myelocytes # (Manual) (0) k/uL Macrocytosis VBG pH (7.31-7.41) VBG HCO3 (24-28) mmol/L Sodium (137-145) mmol/L Potassium (3.5-5.1) mmol/L Chloride (98-107) mmol/L Carbon Dioxide (22-30) mmol/L BUN (9-20) mg/dL Creatinine (0.66-1.25) mg/dL Glucose (74-99) mg/dL POC Glucose (mg/dL) >600 H >600 H 439 H (70-110) mg/dL Calcium (8.4-10.2) mg/dL Magnesium (1.6-2.3) mg/dL ALT (4-49) U/L Alkaline Phosphatase (38-126) U/L Total Protein (6.3-8.2) g/dL Albumin (3.5-5.0) g/dL Urine Protein (Negative) Urine Glucose (UA) (Negative) Urine Ketones (Negative) 06/01/23 06/02/23 06/02/23 Range/Units 23:09 00:06 00:45 WBC (3.8-10.6) k/uL RBC (4.30-5.90) m/uL Hgb (13.0-17.5) gm/dL Hct (39.0-53.0) % MCV (80.0-100.0) fL MCHC (31.0-37.0) g/dL Plt Count (150-450) k/uL Neutrophils # (Manual) (1.3-7.7) k/uL Metamyelocytes # (Man) (0) k/uL Myelocytes # (Manual) (0) k/uL Macrocytosis VBG pH (7.31-7.41) VBG HCO3 (24-28) mmol/L Sodium 149 H (137-145) mmol/L Potassium 5.8 H (3.5-5.1) mmol/L Chloride 116 H (98-107) mmol/L Carbon Dioxide 12 L (22-30) mmol/L BUN 37 H (9-20) mg/dL Creatinine (0.66-1.25) mg/dL Glucose 203 H (74-99) mg/dL POC Glucose (mg/dL) 316 H 211 H (70-110) mg/dL Calcium (8.4-10.2) mg/dL Magnesium (1.6-2.3) mg/dL ALT (4-49) U/L Alkaline Phosphatase (38-126) U/L Total Protein (6.3-8.2) g/dL Albumin (3.5-5.0) g/dL Urine Protein (Negative) Urine Glucose (UA) (Negative) Urine Ketones (Negative) 06/02/23 06/02/23 06/02/23 Range/Units 01:18 02:15 04:33 WBC (3.8-10.6) k/uL RBC (4.30-5.90) m/uL Hgb (13.0-17.5) gm/dL Hct (39.0-53.0) % MCV (80.0-100.0) fL MCHC (31.0-37.0) g/dL Plt Count (150-450) k/uL Neutrophils # (Manual) (1.3-7.7) k/uL Metamyelocytes # (Man) (0) k/uL Myelocytes # (Manual) (0) k/uL Macrocytosis VBG pH (7.31-7.41) VBG HCO3 (24-28) mmol/L Sodium (137-145) mmol/L Potassium (3.5-5.1) mmol/L Chloride (98-107) mmol/L Carbon Dioxide (22-30) mmol/L BUN (9-20) mg/dL Creatinine (0.66-1.25) mg/dL Glucose (74-99) mg/dL POC Glucose (mg/dL) 133 H 115 H 124 H (70-110) mg/dL Calcium (8.4-10.2) mg/dL Magnesium (1.6-2.3) mg/dL ALT (4-49) U/L Alkaline Phosphatase (38-126) U/L Total Protein (6.3-8.2) g/dL Albumin (3.5-5.0) g/dL Urine Protein (Negative) Urine Glucose (UA) (Negative) Urine Ketones (Negative) 06/02/23 06/02/23 06/02/23 Range/Units 05:04 06:13 06:33 WBC 20.0 H (3.8-10.6) k/uL RBC 3.94 L (4.30-5.90) m/uL Hgb 12.5 L D (13.0-17.5) gm/dL Hct 37.8 L (39.0-53.0) % MCV (80.0-100.0) fL MCHC (31.0-37.0) g/dL Plt Count 507 H (150-450) k/uL Neutrophils # (Manual) (1.3-7.7) k/uL Metamyelocytes # (Man) (0) k/uL Myelocytes # (Manual) (0) k/uL Macrocytosis VBG pH (7.31-7.41) VBG HCO3 (24-28) mmol/L Sodium (137-145) mmol/L Potassium (3.5-5.1) mmol/L Chloride (98-107) mmol/L Carbon Dioxide (22-30) mmol/L BUN (9-20) mg/dL Creatinine (0.66-1.25) mg/dL Glucose (74-99) mg/dL POC Glucose (mg/dL) 154 H 199 H (70-110) mg/dL Calcium (8.4-10.2) mg/dL Magnesium (1.6-2.3) mg/dL ALT (4-49) U/L Alkaline Phosphatase (38-126) U/L Total Protein (6.3-8.2) g/dL Albumin (3.5-5.0) g/dL Urine Protein (Negative) Urine Glucose (UA) (Negative) Urine Ketones (Negative) 06/02/23 06/02/23 06/02/23 Range/Units 06:33 06:37 08:10 WBC (3.8-10.6) k/uL RBC (4.30-5.90) m/uL Hgb (13.0-17.5) gm/dL Hct (39.0-53.0) % MCV (80.0-100.0) fL MCHC (31.0-37.0) g/dL Plt Count (150-450) k/uL Neutrophils # (Manual) (1.3-7.7) k/uL Metamyelocytes # (Man) (0) k/uL Myelocytes # (Manual) (0) k/uL Macrocytosis VBG pH (7.31-7.41) VBG HCO3 (24-28) mmol/L Sodium (137-145) mmol/L Potassium (3.5-5.1) mmol/L Chloride 108 H (98-107) mmol/L Carbon Dioxide 18 L (22-30) mmol/L BUN 25 H (9-20) mg/dL Creatinine 0.52 L (0.66-1.25) mg/dL Glucose 212 H (74-99) mg/dL POC Glucose (mg/dL) 212 H 224 H (70-110) mg/dL Calcium 8.3 L (8.4-10.2) mg/dL Magnesium (1.6-2.3) mg/dL ALT (4-49) U/L Alkaline Phosphatase 188 H (38-126) U/L Total Protein 5.9 L (6.3-8.2) g/dL Albumin 3.2 L (3.5-5.0) g/dL Urine Protein (Negative) Urine Glucose (UA) (Negative) Urine Ketones (Negative) 06/02/23 Range/Units 09:08 WBC (3.8-10.6) k/uL RBC (4.30-5.90) m/uL Hgb (13.0-17.5) gm/dL Hct (39.0-53.0) % MCV (80.0-100.0) fL MCHC (31.0-37.0) g/dL Plt Count (150-450) k/uL Neutrophils # (Manual) (1.3-7.7) k/uL Metamyelocytes # (Man) (0) k/uL Myelocytes # (Manual) (0) k/uL Macrocytosis VBG pH (7.31-7.41) VBG HCO3 (24-28) mmol/L Sodium (137-145) mmol/L Potassium (3.5-5.1) mmol/L Chloride (98-107) mmol/L Carbon Dioxide (22-30) mmol/L BUN (9-20) mg/dL Creatinine (0.66-1.25) mg/dL Glucose (74-99) mg/dL POC Glucose (mg/dL) 272 H (70-110) mg/dL Calcium (8.4-10.2) mg/dL Magnesium (1.6-2.3) mg/dL ALT (4-49) U/L Alkaline Phosphatase (38-126) U/L Total Protein (6.3-8.2) g/dL Albumin (3.5-5.0) g/dL Urine Protein (Negative) Urine Glucose (UA) (Negative) Urine Ketones (Negative) Thrombosis Risk Factor Assmnt - Choose All That Apply Any of the Below Risk Factors Present?: No Other Risk Factors: No Other congenital or acquired thrombophilia - If yes, enter type in comment: No Thrombosis Risk Factor Assessment Level: Very Low Risk Assessment and Plan Time with Patient: Less than 30
[2023-06-02] MEDS: ACETAMINOPHEN TAB 325 MG TAB PO PRN (14:51)
[2023-06-02 15:14] LABS: Glucose,Whole Blood 186 mg/dL (70-110)
[2023-06-02 15:36] LABS: Ionized Calcium 4.7 mg/dL (4.5-5.3)
[2023-06-02 15:56] LABS: African American GFR (CKD) >90 (>60 ml/min/1.73 sqM); Anion Gap 12 mmol/L; Blood Urea Nitrogen 14 mg/dL (9-20); Calcium 8.1 mg/dL (8.4-10.2); Carbon Dioxide 21 mmol/L (22-30); Chloride 99 mmol/L (98-107); Glucose 214 mg/dL (74-99); Non-African American GFR(CKD) >90 (>60 ml/min/1.73 sqM); Phosphorus 2.1 mg/dL (2.5-4.5); Potassium 3.4 mmol/L (3.5-5.1); Sodium 132 mmol/L (137-145)
[2023-06-02 16:16] LABS: Glucose,Whole Blood 134 mg/dL (70-110)
[2023-06-02 17:13] LABS: Glucose,Whole Blood 133 mg/dL (70-110)
[2023-06-02] MEDS ORDERED: Phosphorus Replacement Protoco 1 EACH MISC MISCELLANE PRN (17:25)
[2023-06-02] MEDS ORDERED: SODIUM PHOSPHATE 15 MMOL in DEXTROSE 5% IN WATER 250 ML IVPB ONE ×2 (17:25)
[2023-06-02] MEDS: POTASSIUM CHLORIDE ER 20 MEQ TAB.ER PO SCH ×2 (17:56→21:05)
[2023-06-02 18:09] LABS: Glucose,Whole Blood 140 mg/dL (70-110)
[2023-06-02 19:05] LABS: Glucose,Whole Blood 232 mg/dL (70-110)
[2023-06-02 20:21] LABS: African American GFR (CKD) >90 (>60 ml/min/1.73 sqM); Anion Gap 6 mmol/L; Blood Urea Nitrogen 9 mg/dL (9-20); Calcium 7.9 mg/dL (8.4-10.2); Carbon Dioxide 26 mmol/L (22-30); Chloride 101 mmol/L (98-107); Glucose 255 mg/dL (74-99); Non-African American GFR(CKD) >90 (>60 ml/min/1.73 sqM); Potassium 3.7 mmol/L (3.5-5.1); Sodium 133 mmol/L (137-145)
[2023-06-02 20:53] LABS: Glucose,Whole Blood 236 mg/dL (70-110)
[2023-06-02] MEDS: carvediloL 6.25 MG TAB PO SCH (21:05)
[2023-06-02] MEDS ORDERED: INSULIN NPH 100 UNIT/ML 10 ML VIAL SQ ONE (21:42)
[2023-06-02] MEDS ORDERED: INSULIN DETEMIR (LEVEMIR) 100 UNIT/ML SYR SQ SCH (21:45)
[2023-06-03] MEDS ORDERED: POTASSIUM CHLORIDE ER 20 MEQ TAB.ER PO SCH
[2023-06-03 00:02] LABS: Glucose,Whole Blood 190 mg/dL (70-110)
[2023-06-03 04:17] LABS: Glucose,Whole Blood 38 mg/dL (70-110)
[2023-06-03 04:18] LABS: Glucose,Whole Blood 35 mg/dL (70-110)
[2023-06-03] MEDS: INSULIN ASPART (NovoLOG) 100 UNIT/ML VIAL SQ SCH ×5 (04:38→13:03)
[2023-06-03 04:43] LABS: Glucose,Whole Blood 39 mg/dL (70-110)
[2023-06-03 05:18] LABS: Glucose,Whole Blood 124 mg/dL (70-110)
[2023-06-03 06:36] LABS: African American GFR (CKD) >90 (>60 ml/min/1.73 sqM); Anion Gap 12 mmol/L; Blood Urea Nitrogen 6 mg/dL (9-20); Carbon Dioxide 21 mmol/L (22-30); Chloride 99 mmol/L (98-107); Non-African American GFR(CKD) >90 (>60 ml/min/1.73 sqM); Phosphorus 2.9 mg/dL (2.5-4.5); Potassium 3.9 mmol/L (3.5-5.1); Sodium 132 mmol/L (137-145)
[2023-06-03 06:50] LABS: Glucose,Whole Blood 126 mg/dL (70-110)
[2023-06-03] MEDS: carvediloL 6.25 MG TAB PO SCH (09:03)
[2023-06-03] MEDS: PANTOPRAZOLE 40 MG/10 ML VIAL IVP SCH (09:03)
[2023-06-03 09:07] VITALS: TEMP 98.2
[2023-06-03] MEDS ORDERED: SODIUM CHLORIDE 0.9% 1,000 ML IV SCH (09:30)
[2023-06-03] MEDS: ACETAMINOPHEN TAB 325 MG TAB PO PRN (11:00)
--- NOTE | 2023-06-03 11:12 | P.PN ---
Subjective Progress Note Date: 06/03/23 On today's evaluation of 06/03/2023, I'm seeing the patient for a follow-up. The patient has recovered from his acute DKA. His tolerating diet. He has been transitioned to long-acting insulin. The most recent electrolytes shows no significant anion gap. Hemodynamically stable. No specific complaints. No altered mentation. No nausea or vomiting. No emesis. No abdominal pain.The most recent x-ray showed a BUN of 6 with a creatinine of 0.4 and sodium levels of 132 with a potassium level of 3.9. Bicarb is at 21. The patient is currently on Levemir 25 units at bedtime and NovoLog 6 units with meals IV fluids are in the form of normal saline at the rate of 75 mL an hour. Objective - Vital Signs Vital signs: Vital Signs Temp 98.2 F 06/03/23 08:00 Pulse 86 06/03/23 08:00 Resp 18 06/03/23 08:00 BP 109/76 06/03/23 08:00 Pulse Ox 97 06/03/23 08:00 FiO2 Intake & Output 06/02/23 06/03/23 06/03/23 18:59 06:59 18:59 Intake Total 2281.007 725 Output Total 3100 1950 Balance -818.993 -1225 Weight 56.4 kg 61.5 kg Intake: IV 1800 725 0.9 140 D5-0.45% NaCl with KCl 1800 575 20Meq/l 1,000 ml @ 150 mls/hr IV .Q6H40M [facility] Rx# :[id number] Sodium Chloride 0.9% 1, 10 000 ml @ 200 mls/hr IV . Q5H [facility] Rx#:[id number] Intake, IV Titration 481.007 Amount Insulin Regular 100 unit 31.007 In Sodium Chloride 0.9% 100 ml @ 0.1 UNITS/KG/HR 6.185 mls/hr IV .[id number] [facility] Rx#:[id number] Magnesium Sulfate-D5w Pmx 200 1 gm In Dextrose/Water 1 100ml.bag @ 100 mls/hr IVPB ONCE ONE Rx#: [id number] Sodium Phosphate 15 mmol 250 In Dextrose 5% in Water 250 ml @ 127.5 mls/hr IVPB ONCE ONE Rx#: [id number] Output: Urine 3100 1950 Other: Voiding Method Urinal Urinal # Voids 3 - Exam The patient appeared well nourished and normally developed. Vital signs as documented. Head exam is unremarkable. No scleral icterus or corneal arcus noted. Neck is without jugular venous distension, thyromegaly, or carotid bruits. Carotid upstrokes are brisk bilaterally. Lungs are clear to auscultation and percussion. Cardiac exam reveals the PMI to be normally sized and situated. Rhythm is regular. First and second heart sounds normal. No murmurs, rubs or gallops. Abdominal exam reveals normal bowel sounds, no masses, no organomegaly and no aortic enlargement. Extremities are nonedematous and both femoral and pedal pulses are normal. - Labs CBC & Chem 7: 06/02/23 06:33 06/03/23 05:29 Labs: Abnormal Lab Results - Last 24 Hours (Table) 06/02/23 06/02/23 06/02/23 Range/Units 12:00 13:04 13:59 Sodium (137-145) mmol/L Potassium (3.5-5.1) mmol/L Carbon Dioxide (22-30) mmol/L BUN (9-20) mg/dL Creatinine (0.66-1.25) mg/dL Glucose (74-99) mg/dL POC Glucose (mg/dL) 191 H 175 H 232 H (70-110) mg/dL Calcium (8.4-10.2) mg/dL Phosphorus (2.5-4.5) mg/dL 06/02/23 06/02/23 06/02/23 Range/Units 14:15 14:58 15:13 Sodium 132 L (137-145) mmol/L Potassium 3.4 L (3.5-5.1) mmol/L Carbon Dioxide 21 L (22-30) mmol/L BUN (9-20) mg/dL Creatinine 0.46 L (0.66-1.25) mg/dL Glucose 214 H (74-99) mg/dL POC Glucose (mg/dL) 279 H 186 H (70-110) mg/dL Calcium 8.1 L (8.4-10.2) mg/dL Phosphorus 2.1 L (2.5-4.5) mg/dL 06/02/23 06/02/23 06/02/23 Range/Units 16:09 17:12 18:07 Sodium (137-145) mmol/L Potassium (3.5-5.1) mmol/L Carbon Dioxide (22-30) mmol/L BUN (9-20) mg/dL Creatinine (0.66-1.25) mg/dL Glucose (74-99) mg/dL POC Glucose (mg/dL) 134 H 133 H 140 H (70-110) mg/dL Calcium (8.4-10.2) mg/dL Phosphorus (2.5-4.5) mg/dL 06/02/23 06/02/23 06/02/23 Range/Units 19:04 19:53 20:51 Sodium 133 L (137-145) mmol/L Potassium (3.5-5.1) mmol/L Carbon Dioxide (22-30) mmol/L BUN (9-20) mg/dL Creatinine 0.41 L (0.66-1.25) mg/dL Glucose 255 H (74-99) mg/dL POC Glucose (mg/dL) 232 H 236 H (70-110) mg/dL Calcium 7.9 L (8.4-10.2) mg/dL Phosphorus (2.5-4.5) mg/dL 06/03/23 06/03/23 06/03/23 Range/Units 00:01 04:16 04:17 Sodium (137-145) mmol/L Potassium (3.5-5.1) mmol/L Carbon Dioxide (22-30) mmol/L BUN (9-20) mg/dL Creatinine (0.66-1.25) mg/dL Glucose (74-99) mg/dL POC Glucose (mg/dL) 190 H 38 L 35 L (70-110) mg/dL Calcium (8.4-10.2) mg/dL Phosphorus (2.5-4.5) mg/dL 06/03/23 06/03/23 06/03/23 Range/Units 04:40 05:16 05:29 Sodium 132 L (137-145) mmol/L Potassium (3.5-5.1) mmol/L Carbon Dioxide 21 L (22-30) mmol/L BUN 6 L (9-20) mg/dL Creatinine 0.34 L (0.66-1.25) mg/dL Glucose (74-99) mg/dL POC Glucose (mg/dL) 39 L 124 H (70-110) mg/dL Calcium (8.4-10.2) mg/dL Phosphorus (2.5-4.5) mg/dL 06/03/23 Range/Units 06:49 Sodium (137-145) mmol/L Potassium (3.5-5.1) mmol/L Carbon Dioxide (22-30) mmol/L BUN (9-20) mg/dL Creatinine (0.66-1.25) mg/dL Glucose (74-99) mg/dL POC Glucose (mg/dL) 126 H (70-110) mg/dL Calcium (8.4-10.2) mg/dL Phosphorus (2.5-4.5) mg/dL Assessment and Plan Plan: Acute diabetic ketoacidosis, likely secondary to medication noncompliance, The patient has no anion gap on today's electrolytes. The patient has been transitioned to long-acting insulin and the patient is currently on Levemir 25 units daily, is tolerating diet. Hemodynamically stable Severe anion gap metabolic acidosis, secondary to above, recovered Hyperkalemia, improved Acute toxic metabolic encephalopathy, secondary to DKA, improved Leukocytosis, likely reactive, no obvious infectious etiology Severe dehydration with secondary sinus tachycardia, improved the patient was tested with a total of 5 L of IV fluid Type 1 diabetes mellitus, with history of medication noncompliance History of diabetic neuropathy History of chronic bronchial asthma, stable Chronic ongoing tobacco dependence History of major depression and anxiety History of polysubstance abuse Plan Monitor electrolytes and blood sugar Currently on room air oxygen Potassium level has been replaced IV fluids to KVO Diabetic diet No sinus tachycardia Afebrile Diabetic education Transferred to medical floor
[2023-06-03 11:34] VITALS: PULSE 73; RESP 29
--- NOTE | 2023-06-03 14:08 | P.CN ---
Psychiatric Consult - . Consult date: 06/03/23 Consult:: 06/03/23 14:01 This is a psychiatric assessment on Stef Sales was requested for a evaluation due to a petition filed by his Patient has a history of repeated hospitalizations for exacerbation of his diabetes mellitus and going into DKA The was consulted for this interview was stated that the patient is careless and uncaring She feels that one of these days that he would end up dying and that we should all be responsible for not taking care of him She feels that he may be bipolar or depressed and that he needs a psychiatric assessment She also expressed frustration that a similar request was made few months ago when he was clear and and was allowed to be released She also became very sarcastic stating that you're not providing enough support for her to do something about her 's behavior She denies that he had made any suicide attempts but that sometimes he has said that he wished that he was when they were arguing Patient initially refused to be seen and stated that he has no history of depression but after he was referred by the medical staff regarding needing reassessment before any decisions can be made for his discharge that he has 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 Patient reports that he and his have frequent arguments and that he has not been able to work for about a year He says that he was working as a [employer] manic trauma but has not been able to do so for about a year due to his health He says that he currently lives with his and 6 of the children Incidentally also states that the also already has a boyfriend who also lives in the house with them He says that he has thought about getting some conjoined therapy in the past but that the is unwilling to do so and seems to be wanting to move on with her life Patient denies any alcohol or substance use although he does admit that he uses cannabis has available Other Mr. diagnoses include: Acute kidney injury prerenal secondary to nasuea/vomiting and severe dehydration Hyperkalemia improved with hydration and treatment of the acidosis Reactive leukocytosis Diabetes Mellitus type 1 Hx of asthma with no acute exacerbation patient does not appear to be using a rescue inhaler at home. Hypertension patient is resumed on home dose of carvedilol Hx of hyperlipidemia Diabetic neuropathy Anxiety/Depression/Bipolar not an active issue Chronic nicotine use counseled on smoking cessation declined the use of nicotine patch Marijuana use GI prophylaxis on protonix Mental status examination: Reveals a thin built male who currently appears in no acute physical distress Patient is alert and oriented to time place and person Speech was clear coherent and relevant Thought processes are goal-directed sequential and logical Patient denies any suicidal or homicidal ideations Affect was euthymic Patient denies any auditory or visual hallucinations Patient's formal and operational judgment appears to be fair Patient's insight appears to be fair Cognitively appears be intact Diagnostic impression: Adjustment disorder unspecified Somatoform disorder unspecified Marital conflicts Plan: Based on the above information available assessment the patient does not be the criteria for involuntary psychiatric hospitalization Patient however may have ongoing interpersonal conflicts and may have made some threats but is not sufficient to hold the patient against his will and does not meet the criteria for any major depressive disorder at this time Patient is advised that the best processes at this time would be to get involved in conjoined therapy where they both can understand each other and work towards a better future as well as if there is any underlying depression or bipolar disorder that it could be uncovered and further addressed She also admitted that there has been no official diagnosis a evaluation for him and that the bipolar disorder diagnosis was made by his Thank you very much for the kind referral please feel free to contact me if any further questions Jose Qureshi M.D.
[2023-06-03 14:47] VITALS: BP 130/90
--- NOTE | 2023-06-06 20:02 | P.DS ---
Providers Date of admission: 06/01/23 17:47 Attending physician: Prabhakar Llanos MD Consults: 06/01/23 17:46 Consult Physician Routine Consulting Provider: Montserrat Blair Consult Reason/Comments: DKA Do you want consulting provider notified?: Yes 06/02/23 21:41 Consult Physician Routine Consulting Provider: Sudhakar Gallegos Consult Reason/Comments: petition by for "saying he wants to " currently denying suicidal id Do you want consulting provider notified?: Already Contacted Primary care physician: Stated None Hospital Course: Final Diagnosis Insulin dependent diabetes mellitus with diabetic ketoacidosis Anion gap metabolic acidosis secondary to diabetic ketoacidosis Acute kidney injury prerenal secondary to nasuea/vomiting and severe dehydration Hyperkalemia improved with hydration and treatment of the acidosis Reactive leukocytosis Diabetes Mellitus type 1 Hx of asthma with no acute exacerbation Hypertension patient is resumed on home dose of carvedilol Hx of hyperlipidemia Diabetic neuropathy Anxiety/Depression/Bipolar not an active issue Chronic nicotine use counseled on smoking cessation declined the use of nicotine patch Marijuana use Discharge Disposition Patient is stable for discharge home with overall guarded prognosis due to lack of PCP. Patient was following up with Dr. Michelet Aguirre states he has to find a n PCP due to missing too many office appointments. He is given information for referral to endocrinology on discharge as well. Patient states he has enough long acting insulin at home. He has requested novolog to be refilled which was done prior to discharge. He was cleared by psychiatry for discharged home does not have any suicidal ideations. Recommended to pursue counseling. Patient to repeat labs in 2 to 3 days. Hospital Course This is a 33 year old male with medical history of asthma, diabetes mellitus type 1 insulin dependent, hypertension, hyperlipidemia, anxiety, depression, bipolar, daily smoker, occasional marijuana use. Patient comes in from home noticed that his blood glucose was elevated. He also complains of fever and nausea with vomiting at home. No diarrhea, no cough or congestion, no shortness of breath. He states that his kids have been sick at home. On admission blood glucose elevated at 1121 and 588, anion gap undetectable and CO2 of less than 5. Acetone positive. He states he has been compliant with his insulin. He was admitted to the hospital in the intensive care unit with DKA. Started on insulin gtt. \\ Blood glucose improved to the low 200s. Anion gap has closed and he has been transitioned off the insulin gtt to long acting insulin which was decreased from his home dose. Patient did have episode of hypoglycemia expect this is due to medication noncompliance. Recommending to decrease his home dose of lantus and monitor blood glucose. Patient was also petitioned by his related to medical non compliance and uncontrolled diabetes as well are frequent reports of drug use and patient making statements of wanting to diet. Patient denies any suicidal or homicidal ideations. He has been evaluated by psychiatry and recommended for marital counseling/counseling. Most recent labs showing sodium 132, potassium 3.9. BUN 6, creatinine 0.34, glucose 126. Magnesium 1.9. He is afebrile, hemodynamically stable. Alert x 3. He will be discharged home with the above mentioned recommendations. Please see medication reconciliation for a list of current medication. Thank you for allowing us to participate in the care of this patient. The impression and plan of care has been dictated by Chyna Novoa, Nurse Practitioner as directed. Dr. Jae MD I have performed a history and physical examination and medical decision making of this patient, discussed the same with the dictator, and agree with the dictators assessment and plan as written, documented as a scribe. Based on total visit time, I have performed more than 50% of this visit. Patient Condition at Discharge: Fair Plan - Discharge Summary Discharge Rx Participant: No New Discharge Prescriptions: New Insulin Aspart [NovoLOG] 6 units SQ AC-TID #2 each Continue carvediloL [Coreg] 6.25 mg PO BID Famotidine [Pepcid] 40 mg PO DAILY 30 Days #30 tablet Changed Insulin Glargine,Hum.rec.anlog [Lantus Solostar Pen] 20 units SQ HS #0 Discontinued INSULIN ASPART (NovoLOG) [NovoLOG (formulary)] 10 unit SQ AC-TID Discharge Medication List Famotidine [Pepcid] 40 mg PO DAILY 30 Days #30 tablet 03/04/23 [Rx] carvediloL [Coreg] 6.25 mg PO BID 04/18/23 [History] Insulin Aspart [NovoLOG] 6 units SQ AC-TID #2 each 06/03/23 [Rx] Insulin Glargine,Hum.rec.anlog [Lantus Solostar Pen] 20 units SQ HS #0 06/03/23 [Rx] Follow up Appointment(s)/Referral(s): None,Stated [Primary Care Provider] - 1-2 days Michelet Aguirre MD [STAFF PHYSICIAN] - 1-2 Days Leopoldo Tellez MD [REFERRING] - 1 Week Carmelina Dlegado [STAFF PHYSICIAN] - 1 Week Ambulatory/Diagnostic Orders: Basic Metabolic Panel [LAB.AMB] Time Frame: 3 Days, Location: None Selected Patient Instructions/Handouts: Diabetic Ketoacidosis (DC) Activity/Diet/Wound Care/Special Instructions: Monitor your blood glucose at home recommend 20 units of lantus at HS and if blood glucose is above 150 can go back to your usual dose of 45 units HS. Recommend to establish care with a PCP. Dr Carmelina Delgado and Dr Caren Tellez are the 2 endocrinologists in [facility] Discharge Disposition: HOME SELF-CARE
== END 2023-06-03 15:09 | disposition home or self-care (01) | DRG 637 ==
LOC: EC 15:57 → 2SICU 17:47
PROVIDERS: ADMIT Internal Medicine; ATTEND Internal Medicine
DX: E10.10 Type 1 diabetes mellitus with ketoacidosis without coma (principal); G92.8 Other toxic encephalopathy; N17.9 Acute kidney failure, unspecified; E78.5 Hyperlipidemia, unspecified; E86.0 Dehydration; E87.5 Hyperkalemia; F31.9 Bipolar disorder, unspecified; F41.9 Anxiety disorder, unspecified; F17.210 Nicotine dependence, cigarettes, uncomplicated; K31.84 Gastroparesis; E10.43 Type 1 diabetes mellitus with diabetic autonomic (poly)neuropathy; D72.829 Elevated white blood cell count, unspecified; Z71.6 Tobacco abuse counseling; I10 Essential (primary) hypertension; J45.909 Unspecified asthma, uncomplicated; Z79.4 Long term (current) use of insulin; Z79.899 Other long term (current) drug therapy; Z82.49 Family history of ischemic heart disease and other diseases of the circulatory system; Z91.148 Patient's other noncompliance with medication regimen for other reason
CPT/HCPCS: 36415; 71045; 80048; 80051; 80053; 80320; 81003; 82009; 82330; 82565; 82803; 82947; 83735; 84100; 84520; 85025; 85027; 93005; 96361; 96374; 99291

== ENCOUNTER 2023-08-27 22:43 | Emergency (ER) | payer OTHER ==
[2023-08-27 22:54] LABS: Glucose,Whole Blood 230 mg/dL (70-110)
--- NOTE | 2023-08-27 22:57 | ED ---
Nausea/Vomiting/Diarrhea HPI - General Chief complaint: Nausea/Vomiting/Diarrhea Stated complaint: Vomiting Time Seen by Provider: 08/27/23 22:56 Source: patient, family, RN notes reviewed, old records reviewed Mode of arrival: wheelchair Limitations: no limitations - History of Present Illness Initial comments: This is a 33-year-old male to the ER for evaluation today. [place] for evaluation regards to significant nausea vomiting of coffee coffee grounds, coffee-ground emesis with recent diagnosis of the flu during his bout with the flu he had persistent nausea vomiting and symptoms that are progressively worsened. Patient does suffer from type 1 diabetes MD complaint: nausea, vomiting, abdominal pain -: days(s) Description of Vomiting: food contents Description of Diarrhea: water, mucous Location: diffuse, periumbilical Radiation: none Severity: moderate Severity scale (1-10): 4 Quality: cramping, stabbing, aching Consistency: constant Improves with: none Worsens with: none Associated Symptoms: loss of appetite, malaise, nausea/vomiting - Related Data Home Medications Medication Instructions Recorded Confirmed carvediloL [Coreg] 6.25 mg PO BID 04/18/23 06/01/23 Previous Rx's Medication Instructions Recorded Famotidine [Pepcid] 40 mg PO DAILY 30 Days #30 tablet 03/04/23 Insulin Aspart [NovoLOG] 6 units SQ AC-TID #2 each 06/03/23 Insulin Glargine,Hum.rec.anlog 20 units SQ HS #0 06/03/23 [Lantus Solostar Pen] Allergies Allergy/AdvReac Type Severity Reaction Status Date / Time latex Allergy Rash/Hives Verified 08/29/23 15:55 Review of Systems ROS Statement: Those systems with pertinent positive or pertinent negative responses have been documented in the HPI. ROS Other: All systems not noted in ROS Statement are negative. Past Medical History Past Medical History: Asthma, Diabetes Mellitus, Hyperlipidemia, Hypertension, Osteoarthritis (OA) Additional Past Medical History / Comment(s): IDDM type I, diabetic gastroparesis, neuropathy bilateral hands/fingers, migraines, arthrtitis fingers/knees, past R hand and L femur fractures. Previous DKA History of Any Multi-Drug Resistant Organisms: MRSA Date of last positivie culture/infection: 04/26/2014 MDRO Source:: Face Past Surgical History: Ear Surgery, Orthopedic Surgery Additional Past Surgical History / Comment(s): R hand surgery d/t fracture- pinned and pins since removed, L leg femur fracture with pin that eventually was removed, bilateral myringotomy with tubes/ear drum repairs.; Left pinky removal Past Anesthesia/Blood Transfusion Reactions: No Reported Reaction Past Psychological History: Anxiety, Bipolar, Depression Smoking Status: Current every day smoker Past Alcohol Use History: None Reported Past Drug Use History: Marijuana - Past Family History Father Family Medical History: Hyperlipidemia, Hypertension, Myocardial Infarction ([place]) Mother Family Medical History: COPD Additional Family Medical History / Comment(s): home O2, Brother(s) Family Medical History: No Reported History General Exam Limitations: no limitations General appearance: alert, in no apparent distress, anxious Head exam: Present: atraumatic, normocephalic, normal inspection Eye exam: Present: normal appearance, PERRL, EOMI. Absent: scleral icterus, conjunctival injection, periorbital swelling ENT exam: Present: normal exam, mucous membranes dry Neck exam: Present: normal inspection. Absent: tenderness, meningismus, lymphadenopathy Respiratory exam: Present: normal lung sounds bilaterally. Absent: respiratory distress, wheezes, rales, rhonchi, stridor Cardiovascular Exam: Present: normal rhythm, tachycardia, normal heart sounds. Absent: systolic murmur, diastolic murmur, rubs, gallop, clicks GI/Abdominal exam: Present: soft, normal bowel sounds. Absent: distended, tenderness, guarding, rebound, rigid Extremities exam: Present: normal inspection, full ROM, normal capillary refill. Absent: tenderness, pedal edema, joint swelling, calf tenderness Back exam: Present: normal inspection Neurological exam: Present: alert, oriented X3, CN II-XII intact Psychiatric exam: Present: normal affect, normal mood Skin exam: Present: warm, dry, intact, normal color. Absent: rash Course Vital Signs 08/27/23 08/28/23 08/28/23 22:48 00:58 01:43 Temperature 97.6 F Pulse Rate 120 H 95 89 Respiratory 24 16 16 Rate Blood Pressure 98/79 160/99 151/95 O2 Sat by Pulse 97 98 100 Oximetry 08/28/23 08/28/23 02:25 03:09 Temperature 98.7 F Pulse Rate 89 99 Respiratory 16 16 Rate Blood Pressure 151/95 152/99 O2 Sat by Pulse 98 99 Oximetry - Reevaluation(s) Reevaluation #1: 08/27/23 23:52 Medical records reviewed Reevaluation #2: 08/27/23 23:52 Patient symptoms unchanged Patient is still vomiting blood currently in no distress and feels improved Reevaluation #3: 08/27/23 23:52 Patient informed of results and questions answered Patient states currently feels improved and is refusing further evaluation and management Patient refuses transfer to outside facility for GI evaluation regarding upper GI bleed Reevaluation #4: Was pt. sent in by a medical professional or institution (, [facility], TRANSFER COORDINATOR, urgent care, hospital, or skilled nursing...) When possible be specific @ -no Did you speak to anyone other than the patient for history (EMS, parent, family, police, friend...)? What history was obtained from this source @ -no Did you review nursing and triage notes (agree or disagree)? Why? @ -agree Are old charts reviewed (outside hosp., previous admission, EMS record, old EKG, old radiological studies, urgent care reports/EKG's, skilled nursing records)? Report findings @ -yes Differential Diagnosis (chest pain, altered mental status, abdominal pain women, abdominal pain men, vaginal bleeding, weakness, fever, dyspnea, syncope, headache, dizziness, GI bleed, back pain, seizure, CVA, palpatations, mental health, musculoskeletal)? @ -prior EKG interpreted by me (3pts min.). @ -yes X-rays interpreted by me (1pt min.). @ -no CT interpreted by me (1pt min.). @ -no U/S interpreted by me (1pt. min.). @ -no What testing was considered but not performed or refused? (CT, X-rays, U/S, labs)? Why? @ -none What meds were considered but not given or refused? Why? @ -none Did you discuss the management of the patient with other professionals (professionals i.e. [facility] Drew, TRANSFER COORDINATOR, lab, RT, psych nurse, social media executive, lawyers, teacher, learning officer, counter caser)? Give summary @ -no Was smoking cessation discussed for >3mins.? @ -no Was critical care preformed (if so, how long)? @ -no Were there social determinants of health that impacted care today? How? (Homelessness, low income, unemployed, alcoholism, drug addiction, transportation, low edu. Level, literacy, decrease access to med. care, alf, rehab)? @ -none Was there de-escalation of care discussed even if they declined (Discuss DNR or withdrawal of care, Hospice)? DNR status @ -no What co-morbidities impacted this encounter? (DM, HTN, Smoking, COPD, CAD, Cancer, CVA, ARF, Chemo, Hep., AIDS, mental health diagnosis, sleep apnea, morbid obesity)? @ -none Was patient admitted / discharged? Hospital course, mention meds given and route, prescriptions, significant lab abnormalities, going to OR and other pertinent info. @ - 33 male to ER for evaluation of elevated blood sugar, significant nausea vomiting with upper GI bleed. Patient has underlying diabetes with normal blood sugar currently no significant signs of acidosis. Patient does not want transfer to outpatient facility, patient does not want further evaluation here in the ER and wants to be discharged home Discharge Undiagnosed new problem with uncertain prognosis? @ -no Drug Therapy requiring intensive monitoring for toxicity (Heparin, Nitro, Insulin, Cardizem)? @ -no Were any procedures done? @ -no Diagnosis/symptom? @ -Nausea vomiting diarrhea Acute, or Chronic, or Acute on Chronic? @ -Acute Uncomplicated (without systemic symptoms) or Complicated (systemic symptoms)? @ -Complicated Side effects of treatment? @ -no Exacerbation, Progression, or Severe Exacerbation? @ -exacerbation Poses a threat to life or bodily function? How? (Chest pain, [place], [place], pneumonia, PE, COPD, DKA, ARF, appy, cholecystitis, CVA, Diverticulitis, Homicidal, Suicid al, threat to staff... and all critical care pts) @ -yes with significant dehydration Reevaluation #5: Differential Abdominal Pain Men: Appendicitis, cholecystitis, diverticulosis, ischemic bowel, pancreatitis, hepatitis, UTI, gastroenteritis, AAA, incarcerated hernia, bowel obstruction, constipation, inflammatory bowel, hepatitis, peptic ulcer disease, splenic infarction, perforated viscus, testicular torsion, this is not meant to be an all-inclusive list Medical Decision Making - Medical Decision Making 33 male to ER for evaluation of elevated blood sugar, significant nausea vomiting with upper GI bleed. Patient does not want transfer to outpatient facility, patient does not want further evaluation here in the ER and wants to be discharged home - Lab Data Result diagrams: 08/28/23 00:16 08/28/23 00:16 Lab Results 08/27/23 08/28/23 08/28/23 Range/Units 22:52 00:16 00:16 WBC 10.6 (3.8-10.6) k/uL RBC 6.07 H (4.30-5.90) m/uL Hgb 18.0 H (13.0-17.5) gm/dL Hct 55.7 H (39.0-53.0) % MCV 91.9 (80.0-100.0) fL MCH 29.7 (25.0-35.0) pg MCHC 32.4 (31.0-37.0) g/dL RDW 13.9 (11.5-15.5) % Plt Count 336 (150-450) k/uL MPV 10.4 Neutrophils % 78 % Lymphocytes % 17 % Monocytes % 4 % Eosinophils % 0 % Basophils % 1 % Neutrophils # 8.2 H (1.3-7.7) k/uL Lymphocytes # 1.8 (1.0-4.8) k/uL Monocytes # 0.4 (0-1.0) k/uL Eosinophils # 0.0 (0-0.7) k/uL Basophils # 0.1 (0-0.2) k/uL PT (10.0-12.5) sec INR (<1.2) APTT (22.0-30.0) sec VBG pH (7.31-7.41) VBG pCO2 (37-51) mmHg VBG HCO3 (24-28) mmol/L Sodium 142 (137-145) mmol/L Potassium 4.8 (3.5-5.1) mmol/L Chloride 97 L (98-107) mmol/L Carbon Dioxide 24 (22-30) mmol/L Anion Gap 21 mmol/L BUN 30 H (9-20) mg/dL Creatinine 1.05 (0.66-1.25) mg/dL Est GFR (CKD-EPI)AfAm >90 (>60 ml/min/1.73 sqM) Est GFR (CKD-EPI)NonAf >90 (>60 ml/min/1.73 sqM) Glucose 316 H (74-99) mg/dL POC Glucose (mg/dL) 230 H (70-110) mg/dL POC Glu Shot Core Drill Operator ID Fortunato Galloway Plasma Lactic Acid Neymar (0.7-2.0) mmol/L Calcium 9.9 (8.4-10.2) mg/dL Phosphorus 6.3 H (2.5-4.5) mg/dL Magnesium 1.8 (1.6-2.3) mg/dL Total Bilirubin 0.8 (0.2-1.3) mg/dL AST 29 (17-59) U/L ALT 29 (4-49) U/L Alkaline Phosphatase 175 H (38-126) U/L Troponin I (0.000-0.034) ng/mL Total Protein 8.5 H (6.3-8.2) g/dL Albumin 5.0 (3.5-5.0) g/dL Acetone, Qual Positive (Negative) Influenza Type A (PCR) (Not Detectd) Influenza Type B (PCR) (Not Detectd) RSV (PCR) (Not Detectd) SARS-CoV-2 (PCR) (Not Detectd) Blood Type Blood Type Recheck Bld Type Recheck Status Antibody Screen Spec Expiration Date 08/28/23 08/28/23 08/28/23 Range/Units 00:16 00:17 00:42 WBC (3.8-10.6) k/uL RBC (4.30-5.90) m/uL Hgb (13.0-17.5) gm/dL Hct (39.0-53.0) % MCV (80.0-100.0) fL MCH (25.0-35.0) pg MCHC (31.0-37.0) g/dL RDW (11.5-15.5) % Plt Count (150-450) k/uL MPV Neutrophils % % Lymphocytes % % Monocytes % % Eosinophils % % Basophils % % Neutrophils # (1.3-7.7) k/uL Lymphocytes # (1.0-4.8) k/uL Monocytes # (0-1.0) k/uL Eosinophils # (0-0.7) k/uL Basophils # (0-0.2) k/uL PT 12.1 (10.0-12.5) sec INR 1.1 (<1.2) APTT 24.3 (22.0-30.0) sec VBG pH 7.32 (7.31-7.41) VBG pCO2 52 H (37-51) mmHg VBG HCO3 26 (24-28) mmol/L Sodium (137-145) mmol/L Potassium (3.5-5.1) mmol/L Chloride (98-107) mmol/L Carbon Dioxide (22-30) mmol/L Anion Gap mmol/L BUN (9-20) mg/dL Creatinine (0.66-1.25) mg/dL Est GFR (CKD-EPI)AfAm (>60 ml/min/1.73 sqM) Est GFR (CKD-EPI)NonAf (>60 ml/min/1.73 sqM) Glucose (74-99) mg/dL POC Glucose (mg/dL) (70-110) mg/dL POC Glu Shot Core Drill Operator ID Plasma Lactic Acid Neymar (0.7-2.0) mmol/L Calcium (8.4-10.2) mg/dL Phosphorus (2.5-4.5) mg/dL Magnesium (1.6-2.3) mg/dL Total Bilirubin (0.2-1.3) mg/dL AST (17-59) U/L ALT (4-49) U/L Alkaline Phosphatase (38-126) U/L Troponin I (0.000-0.034) ng/mL Total Protein (6.3-8.2) g/dL Albumin (3.5-5.0) g/dL Acetone, Qual (Negative) Influenza Type A (PCR) Not Detected (Not Detectd) Influenza Type B (PCR) Not Detected (Not Detectd) RSV (PCR) Not Detected (Not Detectd) SARS-CoV-2 (PCR) Not Detected (Not Detectd) Blood Type Blood Type Recheck Bld Type Recheck Status Antibody Screen Spec Expiration Date 08/28/23 08/28/23 08/28/23 Range/Units 00:42 00:45 01:30 WBC (3.8-10.6) k/uL RBC (4.30-5.90) m/uL Hgb (13.0-17.5) gm/dL Hct (39.0-53.0) % MCV (80.0-100.0) fL MCH (25.0-35.0) pg MCHC (31.0-37.0) g/dL RDW (11.5-15.5) % Plt Count (150-450) k/uL MPV Neutrophils % % Lymphocytes % % Monocytes % % Eosinophils % % Basophils % % Neutrophils # (1.3-7.7) k/uL Lymphocytes # (1.0-4.8) k/uL Monocytes # (0-1.0) k/uL Eosinophils # (0-0.7) k/uL Basophils # (0-0.2) k/uL PT (10.0-12.5) sec INR (<1.2) APTT (22.0-30.0) sec VBG pH (7.31-7.41) VBG pCO2 (37-51) mmHg VBG HCO3 (24-28) mmol/L Sodium (137-145) mmol/L Potassium (3.5-5.1) mmol/L Chloride (98-107) mmol/L Carbon Dioxide (22-30) mmol/L Anion Gap mmol/L BUN (9-20) mg/dL Creatinine (0.66-1.25) mg/dL Est GFR (CKD-EPI)AfAm (>60 ml/min/1.73 sqM) Est GFR (CKD-EPI)NonAf (>60 ml/min/1.73 sqM) Glucose (74-99) mg/dL POC Glucose (mg/dL) (70-110) mg/dL POC Glu Shot Core Drill Operator ID Plasma Lactic Acid Neymar 1.3 (0.7-2.0) mmol/L Calcium (8.4-10.2) mg/dL Phosphorus (2.5-4.5) mg/dL Magnesium (1.6-2.3) mg/dL Total Bilirubin (0.2-1.3) mg/dL AST (17-59) U/L ALT (4-49) U/L Alkaline Phosphatase (38-126) U/L Troponin I <0.012 (0.000-0.034) ng/mL Total Protein (6.3-8.2) g/dL Albumin (3.5-5.0) g/dL Acetone, Qual (Negative) Influenza Type A (PCR) (Not Detectd) Influenza Type B (PCR) (Not Detectd) RSV (PCR) (Not Detectd) SARS-CoV-2 (PCR) (Not Detectd) Blood Type A Negative Blood Type Recheck A Neg Bld Type Recheck Status No Antibody Screen NEGATIVE Spec Expiration Date 08/31/2023 - 234108/28/23 Range/Units 02:56 WBC (3.8-10.6) k/uL RBC (4.30-5.90) m/uL Hgb (13.0-17.5) gm/dL Hct (39.0-53.0) % MCV (80.0-100.0) fL MCH (25.0-35.0) pg MCHC (31.0-37.0) g/dL RDW (11.5-15.5) % Plt Count (150-450) k/uL MPV Neutrophils % % Lymphocytes % % Monocytes % % Eosinophils % % Basophils % % Neutrophils # (1.3-7.7) k/uL Lymphocytes # (1.0-4.8) k/uL Monocytes # (0-1.0) k/uL Eosinophils # (0-0.7) k/uL Basophils # (0-0.2) k/uL PT (10.0-12.5) sec INR (<1.2) APTT (22.0-30.0) sec VBG pH (7.31-7.41) VBG pCO2 (37-51) mmHg VBG HCO3 (24-28) mmol/L Sodium (137-145) mmol/L Potassium (3.5-5.1) mmol/L Chloride (98-107) mmol/L Carbon Dioxide (22-30) mmol/L Anion Gap mmol/L BUN (9-20) mg/dL Creatinine (0.66-1.25) mg/dL Est GFR (CKD-EPI)AfAm (>60 ml/min/1.73 sqM) Est GFR (CKD-EPI)NonAf (>60 ml/min/1.73 sqM) Glucose (74-99) mg/dL POC Glucose (mg/dL) 216 H (70-110) mg/dL POC Glu Shot Core Drill Operator ID Rosalia Novoa Plasma Lactic Acid Neymar (0.7-2.0) mmol/L Calcium (8.4-10.2) mg/dL Phosphorus (2.5-4.5) mg/dL Magnesium (1.6-2.3) mg/dL Total Bilirubin (0.2-1.3) mg/dL AST (17-59) U/L ALT (4-49) U/L Alkaline Phosphatase (38-126) U/L Troponin I (0.000-0.034) ng/mL Total Protein (6.3-8.2) g/dL Albumin (3.5-5.0) g/dL Acetone, Qual (Negative) Influenza Type A (PCR) (Not Detectd) Influenza Type B (PCR) (Not Detectd) RSV (PCR) (Not Detectd) SARS-CoV-2 (PCR) (Not Detectd) Blood Type Blood Type Recheck Bld Type Recheck Status Antibody Screen Spec Expiration Date - EKG Data -: EKG Interpreted by Me (EKG is sinus tachycardia 144 [place] 111 QRS 78 QTc 380) Critical Care Time Critical Care Time: Yes Total Critical Care Time: 31 Disposition Clinical Impression: Intractable nausea and vomiting, Dehydration, Hyperglycemia, UGIB (upper gastrointestinal bleed) Disposition: HOME SELF-CARE Condition: Serious Instructions (If sedation given, give patient instructions): Gastrointestinal Bleeding (ED), Diabetic Hyperglycemia (ED) Is patient prescribed a controlled substance at d/c from ED?: No Referrals: None,Stated [Primary Care Provider] - 1-2 days Time of Disposition: 02:40
[2023-08-27] MEDS: ONDANSETRON 4 MG/2 ML VIAL IVP STA (23:59)
[2023-08-28] MEDS: PANTOPRAZOLE 40 MG/10 ML VIAL IV STA (00:02)
[2023-08-28] MEDS: SODIUM CHLORIDE 0.9% 1,000 ML IV STA ×2 (00:02→00:03)
[2023-08-28] MEDS: SODIUM CHLORIDE 0.9% 500 ML 500 ML IV STA ×2 (00:02→03:06)
[2023-08-28 01:01] LABS: VBG PH 7.32 (7.31-7.41)
[2023-08-28 01:17] LABS: ALT 29 U/L (4-49); AST 29 U/L (17-59); African American GFR (CKD) >90 (>60 ml/min/1.73 sqM); Alkaline Phosphatase 175 U/L (38-126); Anion Gap 21 mmol/L; Blood Urea Nitrogen 30 mg/dL (9-20); Calcium 9.9 mg/dL (8.4-10.2); Carbon Dioxide 24 mmol/L (22-30); Chloride 97 mmol/L (98-107); Glucose 316 mg/dL (74-99); Magnesium 1.8 mg/dL (1.6-2.3); Non-African American GFR(CKD) >90 (>60 ml/min/1.73 sqM); Phosphorus 6.3 mg/dL (2.5-4.5); Potassium 4.8 mmol/L (3.5-5.1); Sodium 142 mmol/L (137-145); Total Bilirubin 0.8 mg/dL (0.2-1.3); Total Protein 8.5 g/dL (6.3-8.2)
[2023-08-28 01:19] LABS: Basophils # (A) 0.1 k/uL (0-0.2); Basophils % (A) 1 %; Eosinophils % (A) 0 %; Lymphocytes # (A) 1.8 k/uL (1.0-4.8); Lymphocytes % (A) 17 %; MCH 29.7 pg (25.0-35.0); MCHC 32.4 g/dL (31.0-37.0); MCV 91.9 fL (80.0-100.0); Mean Platelet Volume 10.4; Monocytes # (A) 0.4 k/uL (0-1.0); Monocytes % (A) 4 %; Neutrophils # (A) 8.2 k/uL (1.3-7.7); Neutrophils % (A) 78 %; Platelet Count 336 k/uL (150-450); RBC 6.07 m/uL (4.30-5.90); RDW 13.9 % (11.5-15.5); WBC 10.6 k/uL (3.8-10.6)
[2023-08-28 01:20] LABS: HCT 55.7 % (39.0-53.0)
[2023-08-28 01:22] LABS: INR 1.1 (<1.2); Partial Thromboplastin Time 24.3 sec (22.0-30.0); Prothrombin Time 12.1 sec (10.0-12.5)
[2023-08-28 01:40] VITALS: RESP 16
[2023-08-28 02:58] LABS: Glucose,Whole Blood 216 mg/dL (70-110)
[2023-08-28] MEDS: ONDANSETRON 4 MG ODT STARTER PACK 2 TAB BTL PO STA (02:59)
[2023-08-28] MEDS: INSULIN REGULAR 100 UNIT/ML VIAL (IV) IV ONE (03:06)
[2023-08-28 03:32] VITALS: BP 152/99; PULSE 99; TEMP 98.7
== END 2023-08-28 03:05 | disposition home or self-care (01) ==
LOC: EC 22:43
DX: E86.0 Dehydration (principal); K92.2 Gastrointestinal hemorrhage, unspecified; R73.9 Hyperglycemia, unspecified; F17.200 Nicotine dependence, unspecified, uncomplicated; F12.90 Cannabis use, unspecified, uncomplicated; Z91.040 Latex allergy status; Z11.52 Encounter for screening for COVID-19
CPT/HCPCS: 36415; 93005; 86900; 86901; 80053; 82803; 82009; 83605; 83735; 84100; 84484; 85025; 85610; 85730; 86850; 87636; 99285; 96374; 96375; 96361 ×3; J2405; S0119; C9113

== ENCOUNTER 2023-08-29 15:39 | Emergency (ER) | payer OTHER ==
[2023-08-29 15:48] LABS: Glucose,Whole Blood >600 mg/dL (70-110)
[2023-08-29] MEDS ORDERED: ALBUTEROL NEB (CONC) 2.5 MG/0.5 ML INHALATION ONE (15:50)
[2023-08-29] MEDS: SODIUM CHLORIDE 0.9% 1,000 ML IV ONE ×2 (15:59→16:05)
[2023-08-29] MEDS: SODIUM BICARB 8.4% 50 ML SYR (1 MEQ/ML) IV ONE (16:00)
[2023-08-29] MEDS: INSULIN REGULAR 100 UNIT/ML VIAL (IV) IV ONE (16:01)
[2023-08-29] MEDS: ONDANSETRON 4 MG/2 ML VIAL IVP STA (16:01)
[2023-08-29] MEDS: CALCIUM GLUCONATE IN NACL 1 GM in SALINE 1 100ML.BAG IVPB ONE (16:05)
[2023-08-29 16:10] LABS: HCT 51.9 % (39.0-53.0); Hypochromasia Marked; MCH 29.7 pg (25.0-35.0); MCHC 25.1 g/dL (31.0-37.0); Macrocytosis Marked; Mean Platelet Volume 10.6; Platelet Count 364 k/uL (150-450); RBC 4.38 m/uL (4.30-5.90); RDW 13.9 % (11.5-15.5); WBC 15.9 k/uL (3.8-10.6)
[2023-08-29 16:18] LABS: MCV 118.5 fL (80.0-100.0)
[2023-08-29 16:19] VITALS: TEMP 98.1
[2023-08-29 16:22] LABS: INR 0.9 (<1.2); Partial Thromboplastin Time 28.1 sec (22.0-30.0); Prothrombin Time 10.5 sec (10.0-12.5)
[2023-08-29 16:23] LABS: ALT 23 U/L (4-49); AST 18 U/L (17-59); African American GFR (CKD) 22 (>60 ml/min/1.73 sqM); Albumin 4.2 g/dL (3.5-5.0); Alcohol <10 mg/dL; Alkaline Phosphatase 169 U/L (38-126); Blood Urea Nitrogen 74 mg/dL (9-20); Calcium 8.9 mg/dL (8.4-10.2); Chloride 91 mmol/L (98-107); Non-African American GFR(CKD) 19 (>60 ml/min/1.73 sqM); Sodium 131 mmol/L (137-145); Total Bilirubin 0.4 mg/dL (0.2-1.3); Total Protein 6.4 g/dL (6.3-8.2)
[2023-08-29 16:45] LABS: VBG PH 6.88 (7.31-7.41)
[2023-08-29 16:46] LABS: Lactic Acid, Venous 5.9 mmol/L (0.7-2.0)
[2023-08-29 16:47] LABS: Carbon Dioxide <5 mmol/L (22-30)
[2023-08-29] MEDS ORDERED: Potassium Replacement Protocol 1 EACH MISC MISCELLANE PRN (16:47)
[2023-08-29] MEDS ORDERED: DEXTROSE 50% SYRINGE 50 ML IVP PRN ×2 (16:47)
[2023-08-29] MEDS ORDERED: Magnesium Replacement Protocol 1 EACH MISC MISCELLANE PRN (16:47)
[2023-08-29] MEDS ORDERED: VANCOMYCIN IV PER PHARMACY 1 EACH MISC MISCELLANE PRN (16:49)
[2023-08-29 16:58] LABS: Band Neutrophils % 1 %; Lymphocytes # (M) 1.59 k/uL (1.0-4.8); Metamyelocytes # (M) 0.48 k/uL (0); Metamyelocytes % 3 %; Monocytes # (M) 1.11 k/uL (0-1.0); Myelocytes # (M) 0.32 k/uL (0); Myelocytes % 2 %; Neutrophils % (M) 78 %; Nucleated Red Blood Cells 0 /100 WBC (0-0); Total Cells Counted 200
[2023-08-29] MEDS ORDERED: PIPERACILLIN-TAZOBACTAM 3.375 GM in SODIUM CHLORIDE 0.9% 100 ML IVPB SCH (17:00)
[2023-08-29] MEDS ORDERED: D5-0.45% NACL WITH KCL 20MEQ/L 1,000 ML IV SCH (17:00)
[2023-08-29 17:02] LABS: Glucose 1513 mg/dL (74-99)
[2023-08-29] MEDS: PANTOPRAZOLE 40 MG/10 ML VIAL IVP STA (17:08)
[2023-08-29] MEDS: SODIUM BICARB 8.4% 50 ML SYR (1 MEQ/ML) IV STA ×3 (17:08→19:07)
--- NOTE | 2023-08-29 17:09 | XR ---
EXAMINATION TYPE: XR chest 2V DATE OF EXAM: 08/29/2023 COMPARISON: 12/13/2022 HISTORY: Altered mental status TECHNIQUE: Frontal and lateral views of the chest are obtained. FINDINGS: There is no focal air space opacity, pleural effusion, or pneumothorax seen. The cardiac silhouette size is within normal limits. The osseous structures are intact. IMPRESSION: No acute cardiopulmonary process.
[2023-08-29] MEDS: SODIUM CHLORIDE 0.9% 1,000 ML IV STA (17:14)
[2023-08-29] MEDS: INSULIN REGULAR 100 UNIT in SODIUM CHLORIDE 0.9% 100 ML IV SCH (17:15)
[2023-08-29] MEDS: LORazepam 2 MG/ML INJ IV STA (17:20)
[2023-08-29] MEDS: HALOPERIDOL LACTATE 5 MG/ML 1 ML VIAL IVP STA (17:25)
[2023-08-29] MEDS: ALBUTEROL NEB (CONC) 2.5 MG/0.5 ML INHALATION STA (17:26)
[2023-08-29] MEDS: INSULIN REGULAR BOLUS (FROM DRIP BAG) IV ONE (17:26)
--- NOTE | 2023-08-29 17:35 | ED ---
General Adult HPI - General Chief complaint: Nausea/Vomiting/Diarrhea Stated complaint: hyperglycemic Time Seen by Provider: 08/29/23 15:40 Source: RN/MD, EMS, RN notes reviewed, old records reviewed Mode of arrival: EMS Limitations: altered mental status - History of Present Illness Initial comments: Patient is a 33-year-old male who presents emergency department for altered mental status, nausea, vomiting. Was seen in the emergency department 2 days ago for similar complaints. There was a recommendation as the patient was having hematemesis with dark, coffee-ground emesis that he be transferred. We have no GI coverage here. He left AMA. Presents today for reevaluation for similar complaints. Was found on the ground at home. Surrounded by continued intermittent hematemesis. Patient's significant other. It is dark red in col or. Has a history of gastroparesis, type 1 diabetes. No alcohol abuse history. Patient has been feeling ill for multiple days. Patient's Accu-Chek read high prior to arrival. Patient is alert and oriented x 1-2 at this time. He is tolerating oral secretions. Unable to provide history. Presents for further evaluation. - Related Data Home Medications Medication Instructions Recorded Confirmed carvediloL [Coreg] 6.25 mg PO BID 04/18/23 06/01/23 Previous Rx's Medication Instructions Recorded Famotidine [Pepcid] 40 mg PO DAILY 30 Days #30 tablet 03/04/23 Insulin Aspart [NovoLOG] 6 units SQ AC-TID #2 each 06/03/23 Insulin Glargine,Hum.rec.anlog 20 units SQ HS #0 06/03/23 [Lantus Solostar Pen] Allergies Allergy/AdvReac Type Severity Reaction Status Date / Time latex Allergy Rash/Hives Verified 08/29/23 15:55 Review of Systems ROS Statement: Those systems with pertinent positive or pertinent negative responses have been documented in the HPI. ROS Other: All systems not noted in ROS Statement are negative. Past Medical History Past Medical History: Asthma, Diabetes Mellitus, Hyperlipidemia, Hypertension, Osteoarthritis (OA) Additional Past Medical History / Comment(s): IDDM type I, diabetic gastroparesis, neuropathy bilateral hands/fingers, migraines, arthrtitis fingers/knees, past R hand and L femur fractures. Previous DKA History of Any Multi-Drug Resistant Organisms: MRSA Date of last positivie culture/infection: 04/26/2014 MDRO Source:: Face Past Surgical History: Ear Surgery, Orthopedic Surgery Additional Past Surgical History / Comment(s): R hand surgery d/t fracture- pinned and pins since removed, L leg femur fracture with pin that eventually was removed, bilateral myringotomy with tubes/ear drum repairs.; Left pinky removal Past Anesthesia/Blood Transfusion Reactions: No Reported Reaction Past Psychological History: Anxiety, Bipolar, Depression Smoking Status: Current every day smoker Past Alcohol Use History: None Reported Past Drug Use History: Marijuana - Past Family History Father Family Medical History: Hyperlipidemia, Hypertension, Myocardial Infarction ([place]) Mother Family Medical History: COPD Additional Family Medical History / Comment(s): home O2, Brother(s) Family Medical History: No Reported History General Exam - General Exam Comments Initial Comments: General: Appears in moderate acute distress. HEAD: Normal with no signs of head trauma. EYES: PERRLA, EOMI, conjunctiva normal, no discharge. ENT: Hearing grossly intact, normal oropharynx. Dry mucous membranes. Dark emesis dried in his mouth. RESPIRATORY: Clear breath sounds bilaterally. No wheezes, rales, or rhonchi. Increased work of breathing. C/V: Regular rate and rhythm. S1 and S2 auscultated, no edema, peripheral pulses 2+ and intact throughout ABD: Abd is soft, nontender, nondistended EXT: Normal range of motion, no obvious deformity SKIN: Wounds over bilateral elbows. NEURO: Alert and oriented x 1-2, oriented to person and somewhat to place. Not oriented to time. Moving all 4 extremities. Limitations: altered mental status Course Vital Signs 08/29/23 08/29/23 08/29/23 15:51 16:01 16:24 Temperature 98.1 F Pulse Rate 81 89 87 Respiratory 18 30 H 32 H Rate Blood Pressure 89/45 86/40 102/56 O2 Sat by Pulse 100 100 100 Oximetry 08/29/23 08/29/23 08/29/23 17:30 17:52 17:59 Temperature Pulse Rate 98 94 98 Respiratory 26 H Rate Blood Pressure 103/55 O2 Sat by Pulse 99 Oximetry 08/29/23 08/29/23 18:41 19:04 Temperature Pulse Rate 104 H 109 H Respiratory 30 H 30 H Rate Blood Pressure 90/58 94/61 O2 Sat by Pulse 100 100 Oximetry Procedures - Restraint - Face to Face Restraint Occurrence 1 Patient's Immediate Situation: Endangers self safety, Endangers staff safety Patient's Reaction to the Intervention: Relaxed Patient's Medical & Behavioral Condition: Awake Face to Face Eval of Restraint Date: 08/29/23 Face to Face Eval of Restraint Time: 17:44 - Sepsis Sepsis Focused Exam #1 Time Sepsis Criteria Met: 16:49 Sepsis Focused Exam Date: 08/29/23 Sepsis Focused Exam Time: 18:35 Sepsis Focused Exam Complete: Yes Vital Signs & RN Notes Reviewed: Yes Capillary Refill: > 2 Seconds: Fingers, Toes Peripheral Pulses: Normal: Radial (R), Radial (L) Skin Color: Normal for Patient Respiratory Exam: normal lung sounds Cardiovascular Exam: regular rate, normal rhythm Medical Decision Making - Medical Decision Making Was pt. sent in by a medical professional or institution (, PA, POWER PLANT INSPECTOR, urgent care, hospital, or fdc...) When possible be specific @ -No Did you speak to anyone other than the patient for history (EMS, parent, family, police, friend...)? What history was obtained from this source @ -Spoke with the patient's significant other who is the primary historian for the patient. Did you review nursing and triage notes (agree or disagree)? Why? @ -I reviewed and agree with nursing and triage notes Were old charts reviewed (outside hosp., previous admission, EMS record, old EKG, old radiological studies, urgent care reports/EKG's, fdc records)? Report findings @ -Old charts reviewed Differential Diagnosis (chest pain, altered mental status, abdominal pain women, abdominal pain men, vaginal bleeding, weakness, fever, dyspnea, syncope, headache, dizziness, GI bleed, back pain, seizure, CVA, palpatations, mental health, musculoskeletal)? @ -Differential Altered Mental Status: Hypoglycemia, DKA, hypercapnia, ETOH, overdose, CO poisoning, trauma, myxedema coma, HTN encephalopathy, infection, encephalitis, psychosis, intercranial hemorrhage, hepatic encephalopathy, meningitis, CVA, this is not meant to be an all-inclusive list EKG interpreted by me (3pts min.). @ -As above X-rays interpreted by me (1pt min.). @ -Chest x-ray reveals no obvious acute cardiopulmonary process. CT interpreted by me (1pt min.). @ - CT abdomen pelvis shows no obvious acute intra-abdominal process. CT brain reveals no obvious acute intracranial process. CT abdomen pelvis shows no obvious acute intra-abdominal process. CT brain reveals no obvious acute intracranial process. U/S interpreted by me (1pt. min.). @ -None done What testing was considered but not performed or refused? (CT, X-rays, U/S, labs)? Why? @ -None What meds were considered but not given or refused? Why? @ -None Did you discuss the management of the patient with other professionals (professionals i.e. , PA, POWER PLANT INSPECTOR, lab, RT, psych nurse, social work lecturer, floorperson, teacher, correctional security officer, pillowcase maker)? Give summary @ - I did speak with Dr. Cruz of general surgery as we do not have gastroenterology available. He requested the patient be transferred for GI evaluation for the hematemesis. Spoke with Krista Michaud, ER physician Dr. Moon who accepted the transfer. We did discuss this patient has not yet received CT imaging and he accepted without the CT imaging but was in agreement that if the patient does come down we will obtain the imaging and push it to him. He was in agreement this plan. Was smoking cessation discussed for >3mins.? @ -No Was critical care preformed (if so, how long)? @ -Yes, 48 minutes. Were there social determinants of health that impacted care today? How? (Homelessness, low income, unemployed, alcoholism, drug addiction, transportation, low edu. Level, literacy, decrease access to med. care, prison, rehab)? @ -No Was there de-escalation of care discussed even if they declined (Discuss DNR or withdrawal of care, Hospice)? DNR status @ -No What co-morbidities impacted this encounter? (DM, HTN, Smoking, COPD, CAD, Cancer, CVA, ARF, Chemo, Hep., AIDS, mental health diagnosis, sleep apnea, morbid obesity)? @ -Type 1 diabetes Was patient admitted / discharged? Hospital course, mention meds given and route, prescriptions, significant lab abnormalities, going to OR and other pertinent info. @ -Based on the patient's presentation and physical exam, presents with hemate mesis as well as suspicion for DKA. Blood sugar read high on Accu-Cheks. Patient was borderline hypotensive upon arrival. He was placed in trauma bay 4. He was initiated on 2 L fluid bolus. Attempts to be made to obtain a second IV. We sent off general DKA labs. Will obtain CT brain, as well as abdomen pelvis with the recent hematemesis and as well as a chest x-ray. Patient and patient's family in agreement this plan. Vital signs currently remarkable for borderline hypotension with increased work of breathing. Patient was administered Protonix for the hematemesis. He has no history of alcohol abuse. I do not have suspicion for esophageal varices at this time. EKG showed no signs of acute ischemia but it does show signs suggestive of hyperkalemia. Therefore patient was administered hyper-K cocktail consisting of albuterol, calcium, insulin, also Protonix as well as multiple amps of bicarb. Patient also given a dose of Lokelma. Patient's laboratory studies returned remarkable for leukocytosis of 15.9, hemoglobin that was decreased from a few days ago now currently 13.0. Patient seems to chronically have a hemoglobin somewhere between 11 and 15. 2 days ago it was 18.0. Currently it is 13.0. Is not on blood thinners. VBG is remarkable for acidosis. Patient has DKA as evident by positive acetone's,, dioxide less than 5, as well as a high anion gap. Patient is hyperkalemic as confirmed on blood work. Already received the cocktail. Will obtain repeat potassium shortly. Patient has an elevated BUN and creatinine in the setting of BILL is likely secondary to dehydration. Glucose is 1500. Lactic acid is 5.9 likely secondary to the BILL as well as dehydration. However due to the elevated white count and recent emesis we will cover for sepsis. Patient met sepsis criteria at 1649. Blood cultures drawn. Patient started on vancomycin and Zosyn. Patient was also in DKA and was started on DKA protocol with insulin bolus and insulin drip. Chest x-ray showed no signs of acute cardiopulmonary process. CT imaging was attempted however patient kept attempting to stand up from the CT table. Patient was taken back to trauma bay 4. Vital signs are improved at this time with improved blood pressure with systolics in the 100s. He is attempting to stand as well as pull at IVs. At this time as he is not responding to verbal cues we did administer IV Ativan and Haldol. Soft restraints were placed. Will reattempt CT imaging shortly. I did speak with Dr. Cruz of general surgery as we do not have gastroenterology available. He requested the patient be transferred for GI evaluation for the hematemesis. I spoke with patient's significant other who was in agreement with the plan and consented to transfer. Spoke with Krista [place], physician Dr. Moon who accepted the transfer. We did discuss this patient has not yet received CT renée ging and he accepted without the CT imaging but was in agreement that if the patient does come down we will obtain the imaging and pressure to him. He was in agreement this plan. CT imaging was obtained. Patient to be transferred with images pushed. Vital signs remained within acceptable limits. Patient's blood pressures remain above MAP of 65. If the patient is having an active GI bleed, I would like to keep her blood pressure is on the lower end anyways. I do suspect the GI bleeding is likely secondary to esophageal tears or possible peptic ulcer considering the patient's history of diabetes and gastroparesis. Roberson catheter was placed. Patient transferred to [facility] in serious condition. Patient's mental status is improved at time of transfer, as he is alert and oriented x 2-[address] abdomen pelvis shows no obvious acute intra-abdominal process. CT brain reveals no obvious acute intracranial process. Undiagnosed new problem with uncertain prognosis? @ -No Drug Therapy requiring intensive monitoring for toxicity (Heparin, Nitro, Insulin, Cardizem)? @ -Insulin Were any procedures done? @ -No Diagnosis/symptom? @ -DKA, sepsis, hematemesis, hyperkalemia, BILL, lactic acidosis, altered mental status. Acute, or Chronic, or Acute on Chronic? @ -Acute Uncomplicated (without systemic symptoms) or Complicated (systemic symptoms)? @ -Complicated Side effects of treatment? @ -No Exacerbation, Progression, or Severe Exacerbation? @ -No Poses a threat to life or bodily function? How? (Chest pain, [place], [place], pneumonia, PE, COPD, DKA, ARF, appy, cholecystitis, CVA, Diverticulitis, Homicidal, Suicidal, threat to staff... and all critical care pts) @ -Yes - Lab Data Result diagrams: 08/29/23 15:59 08/29/23 15:59 Lab Results 08/29/23 08/29/2308/28/24 Range/Units 15:42 15:59 15:59 WBC 15.9 H (3.8-10.6) k/uL RBC 4.38 (4.30-5.90) m/uL Hgb 13.0 D (13.0-17.5) gm/dL Hct 51.9 (39.0-53.0) % MCV 118.5 H D (80.0-100.0) fL MCH 29.7 (25.0-35.0) pg MCHC 25.1 L (31.0-37.0) g/dL RDW 13.9 (11.5-15.5) % Plt Count 364 (150-450) k/uL MPV 10.6 Neutrophils % (Manual) 78 % Band Neuts % (Manual) 1 % Lymphocytes % (Manual) 10 % Monocytes % (Manual) 7 % Metamyelocytes % 3 % Myelocytes % 2 % Neutrophils # (Manual) 12.50 H (1.3-7.7) k/uL Lymphocytes # (Manual) 1.59 (1.0-4.8) k/uL Monocytes # (Manual) 1.11 H (0-1.0) k/uL Metamyelocytes # (Man) 0.48 H (0) k/uL Myelocytes # (Manual) 0.32 H (0) k/uL Nucleated RBCs 0 (0-0) /100 WBC Manual Slide Review Performed Hypochromasia Marked Macrocytosis Marked A PT 10.5 (10.0-12.5) sec INR 0.9 (<1.2) APTT 28.1 (22.0-30.0) sec VBG pH (7.31-7.41) VBG pCO2 (37-51) mmHg VBG HCO3 (24-28) mmol/L Sodium (137-145) mmol/L Potassium (3.5-5.1) mmol/L Chloride (98-107) mmol/L Carbon Dioxide (22-30) mmol/L Anion Gap BUN (9-20) mg/dL Creatinine (0.66-1.25) mg/dL Est GFR (CKD-EPI)AfAm (>60 ml/min/1.73 sqM) Est GFR (CKD-EPI)NonAf (>60 ml/min/1.73 sqM) Glucose (74-99) mg/dL POC Glucose (mg/dL) >600 H (70-110) mg/dL POC Glu Cannon [employer] Direction Specialist ID Agustina Cole Lactic Ac Sepsis Rflx Plasma Lactic Acid Neymar (0.7-2.0) mmol/L Calcium (8.4-10.2) mg/dL Total Bilirubin (0.2-1.3) mg/dL AST (17-59) U/L ALT (4-49) U/L Alkaline Phosphatase (38-126) U/L Ammonia (<30) umol/L Total Protein (6.3-8.2) g/dL Albumin (3.5-5.0) g/dL Serum Alcohol mg/dL Acetone, Qual (Negative) Influenza Type A (PCR) (Not Detectd) Influenza Type B (PCR) (Not Detectd) RSV (PCR) (Not Detectd) SARS-CoV-2 (PCR) (Not Detectd) 08/29/23 08/29/23 08/29/23 Range/Units 15:59 15:59 15:59 WBC (3.8-10.6) k/uL RBC (4.30-5.90) m/uL Hgb (13.0-17.5) gm/dL Hct (39.0-53.0) % MCV (80.0-100.0) fL MCH (25.0-35.0) pg MCHC (31.0-37.0) g/dL RDW (11.5-15.5) % Plt Count (150-450) k/uL MPV Neutrophils % (Manual) % Band Neuts % (Manual) % Lymphocytes % (Manual) % Monocytes % (Manual) % Metamyelocytes % % Myelocytes % % Neutrophils # (Manual) (1.3-7.7) k/uL Lymphocytes # (Manual) (1.0-4.8) k/uL Monocytes # (Manual) (0-1.0) k/uL Metamyelocytes # (Man) (0) k/uL Myelocytes # (Manual) (0) k/uL Nucleated RBCs (0-0) /100 WBC Manual Slide Review Hypochromasia Macrocytosis PT (10.0-12.5) sec INR (<1.2) APTT (22.0-30.0) sec VBG pH 6.88 L* (7.31-7.41) VBG pCO2 18 L* (37-51) mmHg VBG HCO3 3 L* (24-28) mmol/L Sodium 131 L (137-145) mmol/L Potassium 7.0 H* (3.5-5.1) mmol/L Chloride 91 L (98-107) mmol/L Carbon Dioxide <5 L* (22-30) mmol/L Anion Gap POWER PLANT INSPECTOR BUN 74 H (9-20) mg/dL Creatinine 3.83 H (0.66-1.25) mg/dL Est GFR (CKD-EPI)AfAm 22 (>60 ml/min/1.73 sqM) Est GFR (CKD-EPI)NonAf 19 (>60 ml/min/1.73 sqM) Glucose 1513 H* (74-99) mg/dL POC Glucose (mg/dL) (70-110) mg/dL POC Glu [employer] Direction Specialist ID Lactic Ac Sepsis Rflx Plasma Lactic Acid Neymar 5.9 H* (0.7-2.0) mmol/L Calcium 8.9 (8.4-10.2) mg/dL Total Bilirubin 0.4 (0.2-1.3) mg/dL AST 18 (17-59) U/L ALT 23 (4-49) U/L Alkaline Phosphatase 169 H (38-126) U/L Ammonia <9 (<30) umol/L Total Protein 6.4 (6.3-8.2) g/dL Albumin 4.2 (3.5-5.0) g/dL Serum Alcohol <10 mg/dL Acetone, Qual Positive (Negative) Influenza Type A (PCR) (Not Detectd) Influenza Type B (PCR) (Not Detectd) RSV (PCR) (Not Detectd) SARS-CoV-2 (PCR) (Not Detectd) 08/29/23 08/29/23 08/29/23 Range/Units 16:17 16:46 18:39 WBC (3.8-10.6) k/uL RBC (4.30-5.90) m/uL Hgb (13.0-17.5) gm/dL Hct (39.0-53.0) % MCV (80.0-100.0) fL MCH (25.0-35.0) pg MCHC (31.0-37.0) g/dL RDW (11.5-15.5) % Plt Count (150-450) k/uL MPV Neutrophils % (Manual) % Band Neuts % (Manual) % Lymphocytes % (Manual) % Monocytes % (Manual) % Metamyelocytes % % Myelocytes % % Neutrophils # (Manual) (1.3-7.7) k/uL Lymphocytes # (Manual) (1.0-4.8) k/uL Monocytes # (Manual) (0-1.0) k/uL Metamyelocytes # (Man) (0) k/uL Myelocytes # (Manual) (0) k/uL Nucleated RBCs (0-0) /100 WBC Manual Slide Review Hypochromasia Macrocytosis PT (10.0-12.5) sec INR (<1.2) APTT (22.0-30.0) sec VBG pH (7.31-7.41) VBG pCO2 (37-51) mmHg VBG HCO3 (24-28) mmol/L Sodium (137-145) mmol/L Potassium (3.5-5.1) mmol/L Chloride (98-107) mmol/L Carbon Dioxide (22-30) mmol/L Anion Gap BUN (9-20) mg/dL Creatinine (0.66-1.25) mg/dL Est GFR (CKD-EPI)AfAm (>60 ml/min/1.73 sqM) Est GFR (CKD-EPI)NonAf (>60 ml/min/1.73 sqM) Glucose (74-99) mg/dL POC Glucose (mg/dL) >600 H (70-110) mg/dL POC Glu Cannon Fire Direction Specialist ID Glenis Velazco Lactic Ac Sepsis Rflx Y Plasma Lactic Acid Neymar (0.7-2.0) mmol/L Calcium (8.4-10.2) mg/dL Total Bilirubin (0.2-1.3) mg/dL AST (17-59) U/L ALT (4-49) U/L Alkaline Phosphatase (38-126) U/L Ammonia (<30) umol/L Total Protein (6.3-8.2) g/dL Albumin (3.5-5.0) g/dL Serum Alcohol mg/dL Acetone, Qual (Negative) Influenza Type A (PCR) Not Detected (Not Detectd) Influenza Type B (PCR) Not Detected (Not Detectd) RSV (PCR) Not Detected (Not Detectd) SARS-CoV-2 (PCR) Not Detected (Not Detectd) - EKG Data -: EKG Interpreted by Me EKG Comments: 12-lead Electrocardiogram Interpretation Note EKG was reviewed and interpreted by myself. 12-lead ECG performed at 1547 is interpreted by me as revealing sinus tachycardia with peaked T waves suggestive of hyperkalemia at a rate of 80 beats per minute. [place] is normal. [place] interval is 152 ms, QRS duration is 105 ms, QTc is 458 ms.. There were no ST or T wave abnormalities to suggest myocardial ischemia or injury. R wave progression across the precordium was satisfactory. By my interpretation this EKG is non- diagnostic for acute ischemia. Critical Care Time Critical Care Time: Yes Total Critical Care Time: 48 Disposition Clinical Impression: Altered mental status, DKA (diabetic ketoacidosis), Hyperkalemia, Sepsis, Hem atemesis, BILL (acute kidney injury) Disposition: OTHER INSTITUTION NOT DEFINED Condition: Serious Referrals: None,Stated [Primary Care Provider] - 1-2 days Time of Disposition: 19:00 - Out of Hospital Transfer - Req. Specs Out of Hospital Transfer - Requested Specifics: Other Emergency Center (Transferred to [facility] for evaluation by GI services for hematemesis in the setting of DKA.)
[2023-08-29] MEDS: VANCOMYCIN 1,250 MG in SODIUM CHLORIDE 0.9% 250 ML IVPB STA (17:57)
[2023-08-29 18:41] LABS: Glucose,Whole Blood >600 mg/dL (70-110)
--- NOTE | 2023-08-29 18:49 | CT ---
EXAMINATION TYPE: CT brain wo con DATE OF EXAM: 08/29/2023 COMPARISON: 12/12/2019 HISTORY: AMS, DKA CT DLP: 414.5 mGycm. Automated Exposure Control for Dose Reduction was Utilized. TECHNIQUE: CT scan of the head is performed without contrast. FINDINGS: The ventricles, basal cisterns and sulci over convexities are within normal limits and there is no ma ss effect or shift of the midline structures. No abnormal density is seen throughout the brain parenchyma. There is no acute intra or extra-axial hemorrhage. The posterior fossa including the brainstem, fourt h ventricle and cerebellopontine angles are grossly normal. The intraorbital contents and orbits. There is complete opacification of the left maxillary sinus unchanged compared to previous. Frontal s inuses are hypoplastic. Sphenoid and ethmoid sinuses are well aerated. Postsurgical changes of bilateral mastoidectomy. There is fluid in the right surgical cavity in the r ight mastoids.. IMPRESSION: 1. No acute bleed or mass effect. 2. Persistent marked opacification of the left maxillary sinus. 3. Bilateral mastoidectomy changes.
--- NOTE | 2023-08-29 18:52 | CT ---
EXAMINATION TYPE: CT abdomen pelvis wo con DATE OF EXAM: 08/29/2023 COMPARISON: 09/26/2022 HISTORY: DKA CT DLP: 3393.3 mGycm Automated exposure control for dose reduction was used. TECHNIQUE: Helical acquisition of images was performed from the lung bases through the pelvis. FINDINGS: The lungs are clear. Gallbladder is normal and there is no gallstone, wall thickening, pericholecystic fluid or distention . There is no biliary ductal dilatation. There is no organomegaly of the liver, pancreas, spleen or adrenal glands. There are no renal calcifications or hydronephrosis. The caliber of the abdominal aorta is normal and there is no retroperitoneal adenopathy or hemorrhage . The bowel loops are normal in caliber is no evidence of obstruction. No inflammatory changes are iden tified in the mesentery and there is no free intraperitoneal air or fluid. There is no pelvic mass, free fluid, abscess or adenopathy. There is a Roberson catheter within the urin eric bladder. The osseous structures and soft tissues are unremarkable. IMPRESSION: No significant abnormality seen.
[2023-08-29 19:02] VITALS: RESP 30
[2023-08-29] MEDS: SODIUM CHLORIDE 0.9% 1,000 ML IV SCH (19:15)
[2023-08-29] MEDS: SODIUM ZIRCONIUM CYCLOSILICATE 10 GM PACKET PO ONE (19:19)
[2023-08-29 19:33] VITALS: BP 94/61; PULSE 109
[2023-08-30] MEDS ORDERED: VANCOMYCIN 1,250 MG in SODIUM CHLORIDE 0.9% 250 ML IVPB ONE (06:00)
== END 2023-08-29 19:19 | disposition other institution (70) ==
LOC: EC 15:39
DX: E10.10 Type 1 diabetes mellitus with ketoacidosis without coma (principal); A41.9 Sepsis, unspecified organism; E87.5 Hyperkalemia; K92.0 Hematemesis; N17.9 Acute kidney failure, unspecified; E10.43 Type 1 diabetes mellitus with diabetic autonomic (poly)neuropathy; K31.84 Gastroparesis; B95.7 Other staphylococcus as the cause of diseases classified elsewhere; F17.200 Nicotine dependence, unspecified, uncomplicated; Z91.040 Latex allergy status
CPT/HCPCS: 36415; 94640; 93005; 80053; 82140; 82803; 82009; 83605; 85025; 85610; 85730; 87040; 80320; 87636; 71046; 70450; 74176; 51702; 99291; 96365; 96375 ×6; 96376 ×2; 96361 ×2; J3370; J2060; J1630; J2405; C9113; J0613

== ENCOUNTER 2023-09-15 15:35 | Emergency (ER) | payer OTHER ==
[2023-09-15 16:22] VITALS: RESP 18
[2023-09-15] MEDS: ACETAMINOPHEN TAB 325 MG TAB PO STA (16:38)
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
--- NOTE | 2023-09-15 17:01 | XR ---
EXAMINATION TYPE: XR ribs RT w pa chest xray DATE OF EXAM: 09/15/2023 COMPARISON: NONE HISTORY: Pain TECHNIQUE: Single view of the chest 4 views of the ribs are submitted. FINDINGS: The lungs are clear. No Evidence for pneumothorax. No evidence for focal contusion. Medi astinal structures are midline. Evaluation of the ribs fails to demonstrate evidence for displaced r ib fracture or secondary sign of rib fracture. IMPRESSION: Negative study
[2023-09-15 18:14] VITALS: BP 125/82; PULSE 94; TEMP 98.6
== END 2023-09-15 17:56 | disposition home or self-care (01) ==
LOC: EC 15:35
DX: S00.212A Abrasion of left eyelid and periocular area, initial encounter (principal); S50.311A Abrasion of right elbow, initial encounter; F17.200 Nicotine dependence, unspecified, uncomplicated; F12.90 Cannabis use, unspecified, uncomplicated; Z91.040 Latex allergy status; V89.2XXA Person injured in unspecified motor-vehicle accident, traffic, initial encounter; Y92.411 Interstate highway as the place of occurrence of the external cause
CPT/HCPCS: 99284; 99406

== ENCOUNTER 2023-12-14 18:36 | Observation (INO) | payer MEDICARE, OTHER ==
[2023-12-14 18:43] LABS: Glucose,Whole Blood 525 mg/dL (70-110)
--- NOTE | 2023-12-14 19:03 | ED ---
Recheck HPI - General Source: patient, family, RN notes reviewed Mode of arrival: wheelchair Limitations: no limitations <Keysha Hooper - Last Filed: 12/14/23 19:01> <Ameya Gutiérrez - Last Filed: 12/14/23 20:41> <Tomeka Lainez - Last Filed: 12/15/23 05:27> - General Chief Complaint: Recheck/Abnormal Lab/Rx Stated Complaint: High sugar Time Seen by Provider: 12/14/23 19:01 - History of Present Illness Initial Comments: Quick note: 33-year-old male presented to ER are with a chief complaint of elevated blood sugars. Patient is a known type I diabetic. He states he normally takes NovoLog and Lantus but has not had his medications for about 24 hours. He is endorsing nausea, chills and vomiting. Symptoms started this morning. Family report he is having insurance difficulties and following up with primary care physician to obtain insulin. (Keysha Hooper) 3-year-old male presenting for evaluation of nausea vomiting, epigastric abdominal pain, elevated blood sugar. Patient is a type I diabetic. He also has subjective fever and chills. No URI symptoms. Denies dysuria or hematuria. (Ameya Gutiérrez) - Related Data Home Medications Medication Instructions Recorded Confirmed carvediloL [Coreg] 6.25 mg PO BID 04/18/23 06/01/23 Previous Rx's Medication Instructions Recorded Famotidine [Pepcid] 40 mg PO DAILY 30 Days #30 tablet 03/04/23 Insulin Aspart [NovoLOG] 6 units SQ AC-TID #2 each 06/03/23 Insulin Glargine,Hum.rec.anlog 20 units SQ HS #0 06/03/23 [Lantus Solostar Pen] Allergies Allergy/AdvReac Type Severity Reaction Status Date / Time latex Allergy Rash/Hives Verified 12/14/23 18:40 Review of Systems ROS Other: All systems not noted in ROS Statement are negative. <Keysha Hooper - Last Filed: 12/14/23 19:01> ROS Other: All systems not noted in ROS Statement are negative. <Ameya Gutiérrez - Last Filed: 12/14/23 20:41> ROS Other: All systems not noted in ROS Statement are negative. <MigelTomeka Andre - Last Filed: 12/15/23 05:27> ROS Statement: Those systems with pertinent positive or pertinent negative responses have been documented in the HPI. Past Medical History Past Medical History: Asthma, Diabetes Mellitus, Hyperlipidemia, Hypertension, Osteoarthritis (OA) Additional Past Medical History / Comment(s): IDDM type I, diabetic gastroparesis, neuropathy bilateral hands/fingers, migraines, arthrtitis fingers/knees, past R hand and L femur fractures. Previous DKA History of Any Multi-Drug Resistant Organisms: MRSA Date of last positivie culture/infection: 04/26/2014 MDRO Source:: Face Past Surgical History: Ear Surgery, Orthopedic Surgery Additional Past Surgical History / Comment(s): R hand surgery d/t fracture- pinned and pins since removed, L leg femur fracture with pin that eventually was removed, bilateral myringotomy with tubes/ear drum repairs.; Left pinky removal Past Anesthesia/Blood Transfusion Reactions: No Reported Reaction Past Psychological History: Anxiety, Bipolar, Depression Smoking Status: Current every day smoker Past Alcohol Use History: None Reported Past Drug Use History: Marijuana - Past Family History Father Family Medical History: Hyperlipidemia, Hypertension, Myocardial Infarction ([place]) Mother Family Medical History: COPD Additional Family Medical History / Comment(s): home O2, Brother(s) Family Medical History: No Reported History <Keysha Hooper - Last Filed: 12/14/23 19:01> General Exam Limitations: no limitations <Keysha Hooper - Last Filed: 12/14/23 19:01> General appearance: alert, in no apparent distress Head exam: Present: atraumatic, normocephalic Eye exam: Present: normal appearance, PERRL ENT exam: Present: mucous membranes dry Neck exam: Present: normal inspection. Absent: tenderness, meningismus Respiratory exam: Present: respiratory distress (Tachypneic). Absent: wheezes Cardiovascular Exam: Present: normal rhythm, tachycardia GI/Abdominal exam: Present: soft, tenderness (epigastric). Absent: distended Neurological exam: Present: alert, oriented X3, CN II-XII intact. Absent: motor sensory deficit Psychiatric exam: Present: normal affect, normal mood Skin exam: Present: warm, dry, intact <Ameya Gutiérrez - Last Filed: 12/14/23 20:41> - General Exam Comments Initial Comments: Visual Physical Exam Vital signs reviewed General: Well-appearing, nontoxic, no acute distress. Head: Normocephalic, atraumatic Eyes: PERRLA, EOMI ENT: Airway patent Chest: Nonlabored breathing Skin: No visual rash, normal skin tone Neuro: Alert and oriented 3 Musculoskeletal: No gross abnormalities (Keysha Hooper) Course Vital Signs 12/14/23 12/14/23 12/14/23 18:37 22:26 23:00 Temperature 98.0 F Pulse Rate 128 H 103 H 106 H Respiratory 28 H 20 18 Rate Blood Pressure 123/78 149/102 142/91 O2 Sat by Pulse 96 98 97 Oximetry 12/15/23 12/15/23 12/15/23 00:00 02:00 04:00 Temperature Pulse Rate 118 H 118 H 116 H Respiratory 18 18 18 Rate Blood Pressure 139/89 116/108 158/90 O2 Sat by Pulse 95 97 96 Oximetry Medical Decision Making <Keysha Hooper - Last Filed: 12/14/23 19:01> - Lab Data Result diagrams: 12/14/23 19:24 12/14/23 19:24 <Ameya Gutiérrez - Last Filed: 12/14/23 20:41> - Lab Data Result diagrams: 12/14/23 19:24 12/14/23 19:24 <Tomeka Lainez - Last Filed: 12/15/23 05:27> - Medical Decision Making I performed the quick note portion of this chart. Electronically signed by Keysha Hooper PA-C (Keysha Hooper) Was pt. sent in by a medical professional or institution ([facility], [facility], urgent care, hospital, or [facility]...) When possible be specific @ -[No] Did you speak to anyone other than the patient for history (EMS, parent, family, police, friend...)? What history was obtained from this source @ -[No] Did you review nursing and triage notes (agree or disagree)? Why? @ -[I reviewed and agree with nursing and triage notes] Were old charts reviewed (outside hosp., previous admission, EMS record, old EKG, old radiological studies, urgent care reports/EKG's, [facility] records)? Report findings @ -[No old charts were reviewed] Differential Weakness: Hypoglycemia, hyperglycemia, dehydration, DKA shock, sepsis, hyponatremia, anemia, infection, [place], ETOH, adverse medicine reaction, overdose, stroke, this i s not meant to be an all-inclusive list. EKG interpreted by me (3pts min.). @ -[As above] X-rays interpreted by me (1pt min.). @ -[None done] CT interpreted by me (1pt min.). @ -CT abdomen pelvis has been ordered, results pending U/S interpreted by me (1pt. min.). @ -[None done] What testing was considered but not performed or refused? (CT, X-rays, U/S, labs)? Why? @ -[None] What meds were considered but not given or refused? Why? @ -[None] Did you discuss the management of the patient with other professionals (professionals i.e. , PA, BIT GATHERER, lab, RT, psych nurse, health and social care teacher, bullard operator, teacher, peace officer, machine adjuster leader case trim)? Give summary @ -[No] Was smoking cessation discussed for >3mins.? @ -[No] Was critical care preformed (if so, how long)? @ -[No] Were there social determinants of health that impacted care today? How? (Homelessness, low income, unemployed, alcoholism, drug addiction, transportation, low edu. Level, literacy, decrease access to med. care, fci, rehab)? @ -[No] Was there de-escalation of care discussed even if they declined (Discuss DNR or withdrawal of care, Hospice)? DNR status @ -[No] What co-morbidities impacted this encounter? (DM, HTN, Smoking, COPD, CAD, Cancer, CVA, ARF, Chemo, Hep., AIDS, mental health diagnosis, sleep apnea, morbid obesity)? @ -Type I diabetic Was patient admitted / discharged? Hospital course, mention meds given and r oute, prescriptions, significant lab abnormalities, going to OR and other pertinent info. @ -Patient care signed out at shift change to Dr. Lainez awaiting testing, CT, reevaluation (Ameya Gutiérrez) Was patient admitted / discharged? Hospital course, mention meds given and route, prescriptions, significant lab abnormalities, going to OR and other pertinent info. @ -Patient was signed out to me at shift change. Patient's laboratory studies do demonstrate an elevated glucose with elevated anion gap. Patient has a high CO2 and is acetone negative. Patient meets hyperglycemia however does not meet criteria for DKA. I recommended IV fluids and insulin. Patient will be admitted for these medications as well as antiemetics. Patient was agreeable to admission. With [facility] from [facility] for admission Undiagnosed new problem with uncertain prognosis? @ -No Drug Therapy requiring intensive monitoring for toxicity (Heparin, Nitro, Insulin, Cardizem)? @ -No Were any procedures done? @ -No Diagnosis/symptom? @ -Acute nausea and vomiting, acute hyperglycemia, lactic acidosis, history of type 1 diabetes Acute, or Chronic, or Acute on Chronic? @ -Acute on chronic Uncomplicated (without systemic symptoms) or Complicated (systemic symptoms)? @ -Complicated Side effects of treatment? @ -No Exacerbation, Progression, or Severe Exacerbation? @ -No Poses a threat to life or bodily function? How? (Chest pain, [place], [place], pneumonia, PE, COPD, DKA, ARF, appy, cholecystitis, CVA, Diverticulitis, Homicidal, Suicidal, threat to staff... and all critical care pts) @ -No (Tomeka Lainez) - Lab Data Lab Results 12/14/23 12/14/23 12/14/23 Range/Units 18:42 19:24 19:24 WBC 21.3 H (3.8-10.6) k/uL RBC 6.01 H (4.30-5.90) m/uL Hgb 17.3 (13.0-17.5) gm/dL Hct 52.8 (39.0-53.0) % MCV 87.8 (80.0-100.0) fL MCH 28.8 (25.0-35.0) pg MCHC 32.9 (31.0-37.0) g/dL RDW 14.9 (11.5-15.5) % Plt Count 446 (150-450) k/uL MPV 9.5 Neutrophils % 86 % Lymphocytes % 7 % Monocytes % 5 % Eosinophils % 0 % Basophils % 0 % Neutrophils # 18.4 H (1.3-7.7) k/uL Lymphocytes # 1.5 (1.0-4.8) k/uL Monocytes # 1.1 H (0-1.0) k/uL Eosinophils # 0.0 (0-0.7) k/uL Basophils # 0.0 (0-0.2) k/uL Sodium 136 L (137-145) mmol/L Potassium 4.2 (3.5-5.1) mmol/L Chloride 85 L (98-107) mmol/L Carbon Dioxide 31 H (22-30) mmol/L Anion Gap 20 mmol/L BUN 66 H (9-20) mg/dL Creatinine 1.70 H (0.66-1.25) mg/dL Est GFR (CKD-EPI)AfAm 60 (>60 ml/min/1.73 sqM) Est GFR (CKD-EPI)NonAf 52 (>60 ml/min/1.73 sqM) Glucose 582 H* (74-99) mg/dL POC Glucose (mg/dL) 525 H* (70-110) mg/dL POC Glu Mva Reactor Operator Head ID Mahan Felipe Lactic Ac Sepsis Rflx Plasma Lactic Acid Neymar (0.7-2.0) mmol/L Calcium 9.8 (8.4-10.2) mg/dL Total Bilirubin 1.0 (0.2-1.3) mg/dL AST 23 (17-59) U/L ALT 34 (4-49) U/L Alkaline Phosphatase 144 H (38-126) U/L Total Protein 8.2 (6.3-8.2) g/dL Albumin 5.0 (3.5-5.0) g/dL Urine Color Urine Appearance (Clear) Urine pH (5.0-8.0) Ur Specific [place] (1.001-1.035) Urine Protein (Negative) Urine Glucose (UA) (Negative) Urine Ketones (Negative) Urine Blood (Negative) Urine Nitrite (Negative) Urine Bilirubin (Negative) Urine Urobilinogen (<2.0) mg/dL Ur Leukocyte Esterase (Negative) Acetone, Qual Negative (Negative) 12/14/23 12/14/23 12/14/23 Range/Units 19:24 20:37 20:54 WBC (3.8-10.6) k/uL RBC (4.30-5.90) m/uL Hgb (13.0-17.5) gm/dL Hct (39.0-53.0) % MCV (80.0-100.0) fL MCH (25.0-35.0) pg MCHC (31.0-37.0) g/dL RDW (11.5-15.5) % Plt Count (150-450) k/uL MPV Neutrophils % % Lymphocytes % % Monocytes % % Eosinophils % % Basophils % % Neutrophils # (1.3-7.7) k/uL Lymphocytes # (1.0-4.8) k/uL Monocytes # (0-1.0) k/uL Eosinophils # (0-0.7) k/uL Basophils # (0-0.2) k/uL Sodium (137-145) mmol/L Potassium (3.5-5.1) mmol/L Chloride (98-107) mmol/L Carbon Dioxide (22-30) mmol/L Anion Gap mmol/L BUN (9-20) mg/dL Creatinine (0.66-1.25) mg/dL Est GFR (CKD-EPI)AfAm (>60 ml/min/1.73 sqM) Est GFR (CKD-EPI)NonAf (>60 ml/min/1.73 sqM) Glucose (74-99) mg/dL POC Glucose (mg/dL) 519 H* (70-110) mg/dL POC Glu Mva Reactor Operator Head ID David Sandoval Lactic Ac Sepsis Rflx Y Plasma Lactic Acid Neymar 3.9 H* (0.7-2.0) mmol/L Calcium (8.4-10.2) mg/dL Total Bilirubin (0.2-1.3) mg/dL AST (17-59) U/L ALT (4-49) U/L Alkaline Phosphatase (38-126) U/L Total Protein (6.3-8.2) g/dL Albumin (3.5-5.0) g/dL Urine Color Urine Appearance (Clear) Urine pH (5.0-8.0) Ur Specific [place] (1.001-1.035) Urine Protein (Negative) Urine Glucose (UA) (Negative) Urine Ketones (Negative) Urine Blood (Negative) Urine Nitrite (Negative) Urine Bilirubin (Negative) Urine Urobilinogen (<2.0) mg/dL Ur Leukocyte Esterase (Negative) Acetone, Qual (Negative) 12/14/23 12/14/23 12/14/23 Range/Units 22:06 22:06 22:58 WBC (3.8-10.6) k/uL RBC (4.30-5.90) m/uL Hgb (13.0-17.5) gm/dL Hct (39.0-53.0) % MCV (80.0-100.0) fL MCH (25.0-35.0) pg MCHC (31.0-37.0) g/dL RDW (11.5-15.5) % Plt Count (150-450) k/uL MPV Neutrophils % % Lymphocytes % % Monocytes % % Eosinophils % % Basophils % % Neutrophils # (1.3-7.7) k/uL Lymphocytes # (1.0-4.8) k/uL Monocytes # (0-1.0) k/uL Eosinophils # (0-0.7) k/uL Basophils # (0-0.2) k/uL Sodium (137-145) mmol/L Potassium (3.5-5.1) mmol/L Chloride (98-107) mmol/L Carbon Dioxide (22-30) mmol/L Anion Gap mmol/L BUN (9-20) mg/dL Creatinine (0.66-1.25) mg/dL Est GFR (CKD-EPI)AfAm (>60 ml/min/1.73 sqM) Est GFR (CKD-EPI)NonAf (>60 ml/min/1.73 sqM) Glucose (74-99) mg/dL POC Glucose (mg/dL) 455 H 440 H (70-110) mg/dL POC Glu Mva Reactor Operator Head ID Maribell Oalkey Jackie Lactic Ac Sepsis Rflx Plasma Lactic Acid Neymar (0.7-2.0) mmol/L Calcium (8.4-10.2) mg/dL Total Bilirubin (0.2-1.3) mg/dL AST (17-59) U/L ALT (4-49) U/L Alkaline Phosphatase (38-126) U/L Total Protein (6.3-8.2) g/dL Albumin (3.5-5.0) g/dL Urine Color Colorless Urine Appearance Clear (Clear) Urine pH 5.0 (5.0-8.0) Ur Specific [place] 1.025 (1.001-1.035) Urine Protein Trace H (Negative) Urine Glucose (UA) 4+ H (Negative) Urine Ketones 2+ H (Negative) Urine Blood Negative (Negative) Urine Nitrite Negative (Negative) Urine Bilirubin Negative (Negative) Urine Urobilinogen <2.0 (<2.0) mg/dL Ur Leukocyte Esterase Negative (Negative) Acetone, Qual (Negative) Disposition <Keysha Hooper - Last Filed: 12/14/23 19:01> <Ameya Gutiérrez - Last Filed: 12/14/23 20:41> Is patient prescribed a controlled substance at d/c from ED?: No Time of Disposition: 23:42 Decision to Admit Reason: Admit from EC Decision Date: 12/14/23 Decision Time: 23:42 <Tomeka Lainez - Last Filed: 12/15/23 05:27> Clinical Impression: Hyperglycemia, Acute metabolic encephalopathy, Intractable nausea and vomiting, DKA, type 1 Disposition: ADMITTED IP TO THIS HOSP Condition: Stable
[2023-12-14 20:10] LABS: ALT 34 U/L (4-49); AST 23 U/L (17-59); African American GFR (CKD) 60 (>60 ml/min/1.73 sqM); Alkaline Phosphatase 144 U/L (38-126); Anion Gap 20 mmol/L; Blood Urea Nitrogen 66 mg/dL (9-20); Calcium 9.8 mg/dL (8.4-10.2); Carbon Dioxide 31 mmol/L (22-30); Chloride 85 mmol/L (98-107); Non-African American GFR(CKD) 52 (>60 ml/min/1.73 sqM); Potassium 4.2 mmol/L (3.5-5.1); Sodium 136 mmol/L (137-145); Total Protein 8.2 g/dL (6.3-8.2)
[2023-12-14 20:12] LABS: Basophils % (A) 0 %; Eosinophils % (A) 0 %; HCT 52.8 % (39.0-53.0); HGB 17.3 gm/dL (13.0-17.5); Lymphocytes # (A) 1.5 k/uL (1.0-4.8); Lymphocytes % (A) 7 %; MCH 28.8 pg (25.0-35.0); MCHC 32.9 g/dL (31.0-37.0); MCV 87.8 fL (80.0-100.0); Mean Platelet Volume 9.5; Monocytes # (A) 1.1 k/uL (0-1.0); Monocytes % (A) 5 %; Neutrophils # (A) 18.4 k/uL (1.3-7.7); Neutrophils % (A) 86 %; Platelet Count 446 k/uL (150-450); RBC 6.01 m/uL (4.30-5.90); RDW 14.9 % (11.5-15.5); WBC 21.3 k/uL (3.8-10.6)
[2023-12-14] MEDS: SODIUM CHLORIDE 0.9% 1,000 ML IV ONE ×2 (20:19→21:00)
[2023-12-14 20:38] LABS: Glucose 582 mg/dL (74-99)
[2023-12-14 20:56] LABS: Glucose,Whole Blood 519 mg/dL (70-110)
[2023-12-14] MEDS: ONDANSETRON 4 MG/2 ML VIAL IVP STA (21:00)
[2023-12-14 22:07] LABS: Glucose,Whole Blood 455 mg/dL (70-110)
[2023-12-14] MEDS: METOCLOPRAMIDE 5 MG/ML 2 ML VIAL IVP STA (22:19)
[2023-12-14] MEDS: diphenhydrAMINE 50 MG/ML 1 ML VIAL IVP STA (22:24)
[2023-12-14 22:44] LABS: Appearance,Urine Clear (Clear); Bilirubin,Urine Negative (Negative); Blood,Urine Negative (Negative); Color,Urine Colorless; Glucose,Urine (UA) 4+ (Negative); Leukocyte Esterase,Urine Negative (Negative); Nitrite,Urine Negative (Negative); Protein,Urine Trace (Negative); Specific Gravity,Urine 1.025 (1.001-1.035); Urobilinogen,Urine <2.0 mg/dL (<2.0)
--- NOTE | 2023-12-14 22:46 | CT ---
EXAMINATION TYPE: CT abdomen pelvis wo con CT DLP: 312.6 mGycm, Automated exposure control for dose reduction was used. DATE OF EXAM: 12/14/2023 9:08 PM COMPARISON: 08/29/2023 CLINICAL INDICATION:Male, 33 years old with history of n/v leukocytosis; ABD PAIN TECHNIQUE: Axial CT of the abdomen and pelvis. Sagittal and coronal reformats were created on a [employer] workstation. Contrast used: mL of , (none if empty) Oral contrast used: without Oral Contrast (none if empty) FINDINGS: LOWER CHEST: Lung bases are clear. Heart size is normal. Circumferentially thickened appearance of th e distal esophageal wall. ABDOMEN LIVER: Right lobe is mildly prominent measuring 17.1 cm. Normal attenuation. No biliary dilatation. GALLBLADDER AND BILE DUCTS: Unremarkable gallbladder. No calcified stones or biliary ductal dilatatio n. PANCREAS: Unremarkable. SPLEEN: Unremarkable. ADRENAL GLANDS: Unremarkable. KIDNEYS AND URETERS: Kidneys appear normal in size and contour. There are no visible renal/ureteral c alculi, or hydronephrosis. PELVIS BLADDER: Unremarkable REPRODUCTIVE: Unremarkable. ABDOMEN & PELVIS STOMACH AND BOWEL: Stomach is nondistended and there is a thickened appearance of the wall, especia lly in the cardia region. Small bowel shows no evidence of obstruction. Appendix extends medially and inferiorly into the pelvis, does not appear dilated or inflamed. There is mild to moderate stool thr oughout the colon with no clearly acute abnormality demonstrated. PERITONEUM/RETROPERITONEUM: No evidence of pneumoperitoneum or free fluid. VASCULATURE: Unremarkable LYMPH NODES: No enlarged nodes by CT size criteria. SOFT TISSUE/ABDOMINAL WALL: No acute process. Lobular, wider than tall, soft tissue densities in the bilateral anterior pelvic wall, with some associated calcifications on the right more the left, are n onspecific but favored to reflect a benign entity such as sequela of fat necrosis. MUSCULOSKELETAL: No acute osseous abnormalities. IMPRESSION: 1. Nonspecific thickening of the wall of the distal esophagus and proximal stomach, may represent es ophagogastritis or infective process. Neoplasm is not excluded. Recommend correlation with nonemergen t outpatient upper endoscopy. 2. Otherwise, no acute obstructive or inflammatory process is identified.
[2023-12-14] MEDS: INSULIN REGULAR 100 UNIT/ML VIAL (IM/SQ) SQ ONE (22:58)
[2023-12-14 22:59] LABS: Glucose,Whole Blood 440 mg/dL (70-110)
[2023-12-14 23:09] LABS: Ketones,Urine 2+ (Negative)
[2023-12-14] MEDS ORDERED: NALOXONE 0.4 MG/ML 1 ML VIAL IV PRN (23:42)
[2023-12-14] MEDS ORDERED: ONDANSETRON 4 MG/2 ML VIAL IVP PRN (23:42)
[2023-12-14] MEDS ORDERED: ACETAMINOPHEN TAB 325 MG TAB PO PRN (23:42)
[2023-12-14] MEDS ORDERED: DEXTROSE 50% SYRINGE 50 ML IVP PRN ×2 (23:44)
[2023-12-14 23:58] LABS: Glucose,Whole Blood 436 mg/dL (70-110)
[2023-12-14] MEDS: SODIUM CHLORIDE 0.9% 1,000 ML IV SCH (23:59)
[2023-12-15] MEDS: INSULIN REGULAR 100 UNIT/ML VIAL (IV) IV ONE (00:20)
[2023-12-15] MEDS: INSULIN REGULAR 100 UNIT/ML VIAL (IV) SQ ONE (00:23)
[2023-12-15 00:58] LABS: Glucose,Whole Blood 407 mg/dL (70-110)
[2023-12-15 02:11] LABS: Glucose,Whole Blood 236 mg/dL (70-110)
[2023-12-15 03:59] LABS: Glucose,Whole Blood 121 mg/dL (70-110)
[2023-12-15 05:35] LABS: African American GFR (CKD) >90 (>60 ml/min/1.73 sqM); Anion Gap 6 mmol/L; Blood Urea Nitrogen 55 mg/dL (9-20); Calcium 8.9 mg/dL (8.4-10.2); Carbon Dioxide 35 mmol/L (22-30); Chloride 98 mmol/L (98-107); Glucose 96 mg/dL (74-99); Non-African American GFR(CKD) >90 (>60 ml/min/1.73 sqM); Potassium 3.7 mmol/L (3.5-5.1); Sodium 139 mmol/L (137-145)
[2023-12-15 06:05] LABS: Glucose,Whole Blood 95 mg/dL (70-110)
[2023-12-15 06:37] LABS: Basophils # (A) 0.1 k/uL (0-0.2); Basophils % (A) 0 %; Eosinophils # (A) 0.1 k/uL (0-0.7); Eosinophils % (A) 0 %; HCT 46.2 % (39.0-53.0); HGB 14.8 gm/dL (13.0-17.5); Lymphocytes # (A) 2.1 k/uL (1.0-4.8); Lymphocytes % (A) 9 %; MCH 27.5 pg (25.0-35.0); MCHC 32.1 g/dL (31.0-37.0); MCV 85.8 fL (80.0-100.0); Mean Platelet Volume 9.8; Monocytes # (A) 1.8 k/uL (0-1.0); Monocytes % (A) 8 %; Neutrophils # (A) 18.4 k/uL (1.3-7.7); Neutrophils % (A) 81 %; Platelet Count 355 k/uL (150-450); RBC 5.38 m/uL (4.30-5.90); RDW 14.8 % (11.5-15.5); WBC 22.7 k/uL (3.8-10.6)
[2023-12-15] MEDS: INSULIN ASPART (NovoLOG) 100 UNIT/ML VIAL SQ SCH (08:01)
[2023-12-15 08:02] LABS: Glucose,Whole Blood 143 mg/dL (70-110)
--- NOTE | 2023-12-15 12:17 | P.HPIM ---
History of Present Illness 33-year-old male came in with complaints epigastric abdominal pain nausea vomiting highly elevated blood sugars up to 500. Patient takes 20 units of long-acting insulin 12 units of Premeal insulin patient is highly noncompliant at home which she admitted to one of the nurses although he told me he takes insulin regularly his hemoglobin A1c is elevated to 14. Patient is found to be in diabetic ketoacidosis patient was in DKA protocol with IV insulin DKA subsequently resolved patient will be transition to subcutaneous insulin patient blood sugars have come down anion gap resolved. Patient believes his batch of insulin is not good because of exam giving him prescription of insulin. Patient also had a CT of the abdomen which showed thickening of the esophagus and GERD gastroenteritis, esophagitis and gastritis. However my suspicion is low for any cancer I am referring him to gastroenterology as an outpatient for outpatient endoscopy. Patient does have leukocytosis which is reactive in nature REVIEW OF SYSTEMS: All other systems are negative except those mentioned in the HPI PHYSICAL EXAMINATION: GENERAL: The patient is alert and oriented x3, not in any acute distress. Well developed, well nourished. HEENT: Pupils are round and equally reacting to light. EOMI. No scleral icterus. No conjunctival pallor. Normocephalic, atraumatic. No pharyngeal erythema. No thyromegaly. CARDIOVASCULAR: S1 and S2 present. No murmurs, rubs, or gallops. PULMONARY: Chest is clear to auscultation, no wheezing or crackles. ABDOMEN: Soft, nontender, nondistended, normoactive bowel sounds. No palpable organomegaly. MUSCULOSKELETAL: No joint swelling or deformity. EXTREMITIES: No cyanosis, clubbing, or pedal edema. NEUROLOGICAL: Gross neurological examination did not reveal any focal deficits. SKIN: No rashes. Assessment and plan -Diabetic ketoacidosis ketoacidosis resolved blood sugars have come down anion gap resolved patient will be discharged today extensive counseling was provided regarding compliance with his medication although patient is not very receptive. -Type 1 diabetes mellitus uncontrolled blood sugars due to noncompliance better controlled now -Gastritis esophagitis Protonix for 14 days follow-up with gastroenterology as an outpatient for upper endoscopy -Leukocytosis reactive without any evidence of infection I am repeating basic metabolic profile again as an outpatient to make sure white count is coming down and this is secondary to nausea vomiting -Acute renal failure prerenal azotemia secondary to severe dehydration from DKA improved at this time. Patient will be discharged today Past Medical History Past Medical History: Asthma, Diabetes Mellitus, Hyperlipidemia, Hypertension, Osteoarthritis (OA) Additional Past Medical History / Comment(s): IDDM type I, diabetic gastroparesis, neuropathy bilateral hands/fingers, migraines, arthrtitis fingers/knees, past R hand and L femur fractures. Previous DKA History of Any Multi-Drug Resistant Organisms: MRSA Date of last positivie culture/infection: 04/26/2014 MDRO Source:: Face Past Surgical History: Ear Surgery, Orthopedic Surgery Additional Past Surgical History / Comment(s): R hand surgery d/t fracture- pinned and pins since removed, L leg femur fracture with pin that eventually was removed, bilateral myringotomy with tubes/ear drum repairs.; Left pinky removal Past Anesthesia/Blood Transfusion Reactions: No Reported Reaction Past Psychological History: Anxiety, Bipolar, Depression Smoking Status: Current every day smoker Past Alcohol Use History: None Reported Past Drug Use History: Marijuana - Past Family History Father Family Medical History: Hyperlipidemia, Hypertension, Myocardial Infarction ([place]) Mother Family Medical History: COPD Additional Family Medical History / Comment(s): home O2, Brother(s) Family Medical History: No Reported History Medications and Allergies Home Medications Medication Instructions Recorded Confirmed Type Insulin Aspart [NovoLOG] 12 units SQ AC-TID #5 each 12/15/23 Rx Insulin Glargine,Hum.rec.anlog 20 units SQ HS #5 each 12/15/23 Rx [Lantus Solostar Pen] Pantoprazole [Protonix] 40 mg PO DAILY #14 tab 12/15/23 Rx Allergies Allergy/AdvReac Type Severity Reaction Status Date / Time latex Allergy Rash/Hives Verified 12/15/23 08:48 Physical Exam Vitals: Vital Signs Temp Pulse Pulse Resp BP Pulse Ox 12/15/23 11:32 101 H 18 146/89 98 12/15/23 08:00 98 16 12/15/23 06:00 98 18 152/105 97 12/15/23 04:00 116 H 18 158/90 96 12/15/23 02:00 118 H 18 116/108 97 12/15/23 00:00 118 H 18 139/89 95 12/14/23 23:00 106 H 18 142/91 97 07/10/24 22:26 103 H 20 149/102 98 12/14/23 18:37 98.0 F 128 H 28 H 123/78 96 Intake and Output 12/14/23 12/15/23 12/15/23 22:59 06:59 14:59 Other: Voiding Method Toilet Weight 61.235 kg Results CBC & Chem 7: 12/15/23 04:48 12/15/23 04:48 Labs: Abnormal Lab Results - Last 24 Hours (Table) 12/14/23 12/14/23 12/14/23 Range/Units 18:42 19:24 19:24 WBC 21.3 H (3.8-10.6) k/uL RBC 6.01 H (4.30-5.90) m/uL Neutrophils # 18.4 H (1.3-7.7) k/uL Monocytes # 1.1 H (0-1.0) k/uL Sodium 136 L (137-145) mmol/L Chloride 85 L (98-107) mmol/L Carbon Dioxide 31 H (22-30) mmol/L BUN 66 H (9-20) mg/dL Creatinine 1.70 H (0.66-1.25) mg/dL Glucose 582 H* (74-99) mg/dL POC Glucose (mg/dL) 525 H* (70-110) mg/dL Hemoglobin A1c (<=6.0) % Plasma Lactic Acid Neymar (0.7-2.0) mmol/L Alkaline Phosphatase 144 H (38-126) U/L Urine Protein (Negative) Urine Glucose (UA) (Negative) Urine Ketones (Negative) 12/14/23 12/14/23 12/14/23 Range/Units 19:24 20:54 22:06 WBC (3.8-10.6) k/uL RBC (4.30-5.90) m/uL Neutrophils # (1.3-7.7) k/uL Monocytes # (0-1.0) k/uL Sodium (137-145) mmol/L Chloride (98-107) mmol/L Carbon Dioxide (22-30) mmol/L BUN (9-20) mg/dL Creatinine (0.66-1.25) mg/dL Glucose (74-99) mg/dL POC Glucose (mg/dL) 519 H* (70-110) mg/dL Hemoglobin A1c (<=6.0) % Plasma Lactic Acid Neymar 3.9 H* (0.7-2.0) mmol/L Alkaline Phosphatase (38-126) U/L Urine Protein Trace H (Negative) Urine Glucose (UA) 4+ H (Negative) Urine Ketones 2+ H (Negative) 12/14/23 12/14/23 12/14/23 Range/Units 22:06 22:58 23:56 WBC (3.8-10.6) k/uL RBC (4.30-5.90) m/uL Neutrophils # (1.3-7.7) k/uL Monocytes # (0-1.0) k/uL Sodium (137-145) mmol/L Chloride (98-107) mmol/L Carbon Dioxide (22-30) mmol/L BUN (9-20) mg/dL Creatinine (0.66-1.25) mg/dL Glucose (74-99) mg/dL POC Glucose (mg/dL) 455 H 440 H 436 H (70-110) mg/dL Hemoglobin A1c (<=6.0) % Plasma Lactic Acid Neymar (0.7-2.0) mmol/L Alkaline Phosphatase (38-126) U/L Urine Protein (Negative) Urine Glucose (UA) (Negative) Urine Ketones (Negative) 12/15/23 12/15/23 12/15/23 Range/Units 00:41 00:56 02:10 WBC (3.8-10.6) k/uL RBC (4.30-5.90) m/uL Neutrophils # (1.3-7.7) k/uL Monocytes # (0-1.0) k/uL Sodium (137-145) mmol/L Chloride (98-107) mmol/L Carbon Dioxide (22-30) mmol/L BUN (9-20) mg/dL Creatinine (0.66-1.25) mg/dL Glucose (74-99) mg/dL POC Glucose (mg/dL) 407 H 236 H (70-110) mg/dL Hemoglobin A1c (<=6.0) % Plasma Lactic Acid Neymar 3.2 H* (0.7-2.0) mmol/L Alkaline Phosphatase (38-126) U/L Urine Protein (Negative) Urine Glucose (UA) (Negative) Urine Ketones (Negative) 12/15/23 12/15/23 12/15/23 Range/Units 03:57 04:48 04:48 WBC 22.7 H (3.8-10.6) k/uL RBC (4.30-5.90) m/uL Neutrophils # 18.4 H (1.3-7.7) k/uL Monocytes # 1.8 H (0-1.0) k/uL Sodium (137-145) mmol/L Chloride (98-107) mmol/L Carbon Dioxide (22-30) mmol/L BUN (9-20) mg/dL Creatinine (0.66-1.25) mg/dL Glucose (74-99) mg/dL POC Glucose (mg/dL) 121 H (70-110) mg/dL Hemoglobin A1c 14.3 H (<=6.0) % Plasma Lactic Acid Neymar (0.7-2.0) mmol/L Alkaline Phosphatase (38-126) U/L Urine Protein (Negative) Urine Glucose (UA) (Negative) Urine Ketones (Negative) 12/15/23 12/15/23 Range/Units 04:48 07:59 WBC (3.8-10.6) k/uL RBC (4.30-5.90) m/uL Neutrophils # (1.3-7.7) k/uL Monocytes # (0-1.0) k/uL Sodium (137-145) mmol/L Chloride (98-107) mmol/L Carbon Dioxide 35 H (22-30) mmol/L BUN 55 H (9-20) mg/dL Creatinine (0.66-1.25) mg/dL Glucose (74-99) mg/dL POC Glucose (mg/dL) 143 H (70-110) mg/dL Hemoglobin A1c (<=6.0) % Plasma Lactic Acid Neymar (0.7-2.0) mmol/L Alkaline Phosphatase (38-126) U/L Urine Protein (Negative) Urine Glucose (UA) (Negative) Urine Ketones (Negative)
--- NOTE | 2023-12-15 12:17 | P.DS ---
Providers Date of admission: 12/14/23 23:45 Attending physician: Wayne Moe Primary care physician: Stated None Hospital Course: 33-year-old male came in with complaints epigastric abdominal pain nausea vomiting highly elevated blood sugars up to 500. Patient takes 20 units of long-acting insulin 12 units of Premeal insulin patient is highly noncompliant at home which she admitted to one of the nurses although he told me he takes insulin regularly his hemoglobin A1c is elevated to 14. Patient is found to be in diabetic ketoacidosis patient was in DKA protocol with IV insulin DKA subsequently resolved patient will be transition to subcutaneous insulin patient blood sugars have come down anion gap resolved. Patient believes his batch of insulin is not good because of exam giving him prescription of insulin. Patient also had a CT of the abdomen which showed thickening of the esophagus and GERD gastroenteritis, esophagitis and gastritis. However my suspicion is low for any cancer I am referring him to gastroenterology as an outpatient for outpatient endoscopy. Patient does have leukocytosis which is reactive in nature PHYSICAL EXAMINATION: GENERAL: The patient is alert and oriented x3, not in any acute distress. Well developed, well nourished. HEENT: Pupils are round and equally reacting to light. EOMI. No scleral icterus. No conjunctival pallor. Normocephalic, atraumatic. No pharyngeal erythema. No thyromegaly. CARDIOVASCULAR: S1 and S2 present. No murmurs, rubs, or gallops. PULMONARY: Chest is clear to auscultation, no wheezing or crackles. ABDOMEN: Soft, nontender, nondistended, normoactive bowel sounds. No palpable organomegaly. MUSCULOSKELETAL: No joint swelling or deformity. EXTREMITIES: No cyanosis, clubbing, or pedal edema. NEUROLOGICAL: Gross neurological examination did not reveal any focal deficits. SKIN: No rashes. Assessment and plan -Diabetic ketoacidosis ketoacidosis resolved blood sugars have come down anion gap resolved patient will be discharged today extensive counseling was provided regarding compliance with his medication although patient is not very receptive. -Type 1 diabetes mellitus uncontrolled blood sugars due to noncompliance better controlled now -Gastritis esophagitis Protonix for 14 days follow-up with gastroenterology as an outpatient for upper endoscopy -Leukocytosis reactive without any evidence of infection I am repeating basic metabolic profile again as an outpatient to make sure white count is coming down and this is secondary to nausea vomiting -Acute renal failure prerenal azotemia secondary to severe dehydration from DKA improved at this time. Patient will be discharged today Patient Condition at Discharge: Stable Plan - Discharge Summary New Discharge Prescriptions: New Pantoprazole [Protonix] 40 mg PO DAILY #14 tab Continue Insulin Glargine,Hum.rec.anlog [Lantus Solostar Pen] 20 units SQ HS #5 each Changed Insulin Aspart [NovoLOG] 12 units SQ AC-TID #5 each Discharge Medication List Insulin Aspart [NovoLOG] 12 units SQ AC-TID #5 each 12/15/23 [Rx] Insulin Glargine,Hum.rec.anlog [Lantus Solostar Pen] 20 units SQ HS #5 each 12/15/23 [Rx] Pantoprazole [Protonix] 40 mg PO DAILY #14 tab 12/15/23 [Rx] Follow up Appointment(s)/Referral(s): Alfred Jackman MD [STAFF PHYSICIAN] - 1 Week Leanne Lucero MD [STAFF PHYSICIAN] - 1 Week Ambulatory/Diagnostic Orders: Miscellaneous DME Order [DME.AMB] Location: None Selected Complete Blood Count w/diff [LAB.AMB] Time Frame: 3 Days, Location: None Selected Discharge Disposition: HOME SELF-CARE
[2023-12-15 12:58] VITALS: BP 147/84; TEMP 98.9
[2023-12-15 13:31] LABS: Glucose,Whole Blood 420 mg/dL (70-110)
[2023-12-15] MEDS: INSULIN ASPART (NovoLOG) 100 UNIT/ML VIAL SQ ONE (14:20)
[2023-12-15] MEDS: INSULIN DETEMIR (LEVEMIR) 100 UNIT/ML SYR SQ STA (14:43)
[2023-12-15 14:46] LABS: Glucose,Whole Blood 419 mg/dL (70-110)
[2023-12-15 14:47] VITALS: PULSE 109; RESP 16
== END 2023-12-15 14:47 | disposition home or self-care (01) ==
LOC: EC 18:36 → 5NMEDONC 23:45
PROVIDERS: ADMIT Hospitalist; ATTEND Hospitalist
DX: E10.10 Type 1 diabetes mellitus with ketoacidosis without coma (principal); N17.9 Acute kidney failure, unspecified; E86.0 Dehydration; T38.3X6A Underdosing of insulin and oral hypoglycemic [antidiabetic] drugs, initial encounter; Z91.128 Patient's intentional underdosing of medication regimen for other reason; F17.200 Nicotine dependence, unspecified, uncomplicated; K21.00 Gastro-esophageal reflux disease with esophagitis, without bleeding; K52.9 Noninfective gastroenteritis and colitis, unspecified; K29.70 Gastritis, unspecified, without bleeding; D72.829 Elevated white blood cell count, unspecified; Z91.148 Patient's other noncompliance with medication regimen for other reason; Z79.4 Long term (current) use of insulin; Z79.899 Other long term (current) drug therapy; Z91.040 Latex allergy status; Z71.89 Other specified counseling
CPT/HCPCS: 96361 ×2; 96374; 96375; 99285; 36415; 80053; 80048; 82009; 83605 ×2; 85025 ×2; 81003; 83036; 74176; G0378; J1200; J2765; J2405

== ENCOUNTER 2024-03-02 13:58 | Emergency (ER) | payer MEDICARE, OTHER ==
[2024-03-02] MEDS: DEXTROSE 50% SYRINGE 50 ML IVP STA (14:40)
[2024-03-02] MEDS: METOCLOPRAMIDE 5 MG/ML 2 ML VIAL IVP STA (14:44)
[2024-03-02] MEDS: SODIUM CHLORIDE 0.9% 2,000 ML IV STA (14:44)
[2024-03-02 14:45] LABS: VBG PH 7.49 (7.31-7.41)
[2024-03-02 14:46] LABS: Basophils % (A) 0 %; Eosinophils % (A) 0 %; HCT 47.4 % (39.0-53.0); HGB 15.4 gm/dL (13.0-17.5); Lymphocytes # (A) 3.2 k/uL (1.0-4.8); Lymphocytes % (A) 16 %; MCH 29.2 pg (25.0-35.0); MCHC 32.4 g/dL (31.0-37.0); MCV 90.1 fL (80.0-100.0); Mean Platelet Volume 8.1; Monocytes # (A) 0.9 k/uL (0-1.0); Monocytes % (A) 4 %; Neutrophils # (A) 14.9 k/uL (1.3-7.7); Neutrophils % (A) 77 %; Platelet Count 609 k/uL (150-450); RBC 5.26 m/uL (4.30-5.90); RDW 15.7 % (11.5-15.5); WBC 19.4 k/uL (3.8-10.6)
[2024-03-02] MEDS: diphenhydrAMINE 50 MG/ML 1 ML VIAL IVP STA (14:48)
[2024-03-02 15:00] LABS: ALT 16 U/L (4-49); AST 24 U/L (17-59); African American GFR (CKD) >90 (>60 ml/min/1.73 sqM); Albumin 5.2 g/dL (3.5-5.0); Alkaline Phosphatase 142 U/L (38-126); Anion Gap 12 mmol/L; Blood Urea Nitrogen 32 mg/dL (9-20); Calcium 10.8 mg/dL (8.4-10.2); Carbon Dioxide 28 mmol/L (22-30); Chloride 108 mmol/L (98-107); Glucose 57 mg/dL (74-99); Lipase 17 U/L (23-300); Magnesium 2.2 mg/dL (1.6-2.3); Non-African American GFR(CKD) >90 (>60 ml/min/1.73 sqM); Phosphorus 3.9 mg/dL (2.5-4.5); Potassium 3.8 mmol/L (3.5-5.1); Sodium 148 mmol/L (137-145); Total Bilirubin 0.8 mg/dL (0.2-1.3); Total Protein 8.9 g/dL (6.3-8.2)
--- NOTE | 2024-03-02 15:14 | ED ---
Nausea/Vomiting/Diarrhea HPI - General Chief complaint: Nausea/Vomiting/Diarrhea Stated complaint: Vomiting Time Seen by Provider: 03/02/24 14:17 Source: patient, RN notes reviewed Mode of arrival: wheelchair Limitations: no limitations - History of Present Illness Initial comments: 33-year-old male presents emergency room chief plaint of nausea vomiting. Patient states unable to keep any down the last couple days. Patient states that he has a known diabetic has had recurrent DKA. Patient states his blood sugar was 121 he woke up this morning states it was 90 and reportedly is in the 50s now. Patient states he has not given himself any insulin states she has not been able to eat anything. Patient does admit to feeling dehydrated, dizzy and weak feeling denies chest pain or shortness of breath - Related Data Home Medications Medication Instructions Recorded Confirmed Insulin Aspart [NovoLOG] 10 units SQ AC-TID 03/02/24 03/02/24 Insulin Glulisine [Apidra] 31 unit SQ HS 03/02/24 03/02/24 Previous Rx's Medication Instructions Recorded Ondansetron Odt [Zofran Odt] 4 mg PO Q8HR PRN #10 tab 03/02/24 Allergies Allergy/AdvReac Type Severity Reaction Status Date / Time latex Allergy Rash/Hives Verified 03/02/24 17:01 Review of Systems ROS Statement: Those systems with pertinent positive or pertinent negative responses have been documented in the HPI. ROS Other: All systems not noted in ROS Statement are negative. Past Medical History Past Medical History: Asthma, Diabetes Mellitus, Hyperlipidemia, Hypertension, Osteoarthritis (OA) Additional Past Medical History / Comment(s): IDDM type I, diabetic gastroparesis, neuropathy bilateral hands/fingers, migraines, arthrtitis fingers/knees, past R hand and L femur fractures. Previous DKA History of Any Multi-Drug Resistant Organisms: MRSA Date of last positivie culture/infection: 04/26/2014 MDRO Source:: Face Past Surgical History: Ear Surgery, Orthopedic Surgery Additional Past Surgical History / Comment(s): R hand surgery d/t fracture- pinned and pins since removed, L leg femur fracture with pin that eventually was removed, bilateral myringotomy with tubes/ear drum repairs.; Left pinky removal Past Anesthesia/Blood Transfusion Reactions: No Reported Reaction Past Psychological History: Anxiety, Bipolar, Depression Smoking Status: Current every day smoker Past Alcohol Use History: None Reported Past Drug Use History: Marijuana - Past Family History Father Family Medical History: Hyperlipidemia, Hypertension, Myocardial Infarction ([place]) Mother Family Medical History: COPD Additional Family Medical History / Comment(s): home O2, Brother(s) Family Medical History: No Reported History General Exam Limitations: no limitations General appearance: alert, in no apparent distress Head exam: Present: atraumatic, normocephalic, normal inspection Eye exam: Present: normal appearance, PERRL, EOMI. Absent: scleral icterus, co njunctival injection, periorbital swelling ENT exam: Present: normal exam, normal oropharynx, mucous membranes moist Neck exam: Present: normal inspection, full ROM. Absent: tenderness, meningismus, lymphadenopathy Respiratory exam: Present: normal lung sounds bilaterally. Absent: respiratory distress, wheezes, rales, rhonchi, stridor Cardiovascular Exam: Present: normal rhythm, tachycardia, normal heart sounds. Absent: systolic murmur, diastolic murmur, rubs, gallop, clicks Neurological exam: Present: alert, oriented X3, CN II-XII intact, reflexes normal. Absent: motor sensory deficit Course Vital Signs 03/02/24 03/02/24 03/02/24 14:14 14:54 17:14 Temperature 98 F 98.9 F Pulse Rate 136 H 89 98 Respiratory 20 18 20 Rate Blood Pressure 164/114 174/97 O2 Sat by Pulse 98 95 98 Oximetry Medical Decision Making - Medical Decision Making Was pt. sent in by a medical professional or institution (, PA, STATE HISTORICAL SOCIETY DIRECTOR, urgent care, hospital, or skilled nursing...) When possible be specific @ -No Did you speak to anyone other than the patient for history (EMS, parent, family, police, friend...)? What history was obtained from this source @ -No Did you review nursing and triage notes (agree or disagree)? Why? @ -I reviewed and agree with nursing and triage notes Were old charts reviewed (outside hosp., previous admission, EMS record, old EKG, old radiological studies, urgent care reports/EKG's, skilled nursing records)? Report findings @ -Reviewed prior CBC, CMP, hospital admissions Differential Diagnosis (chest pain, altered mental status, abdominal pain women, abdominal pain men, vaginal bleeding, weakness, fever, dyspnea, syncope, headach e, dizziness, GI bleed, back pain, seizure, CVA, palpatations, mental health, musculoskeletal)? @ -Differential Abdominal Pain Men: Appendicitis, cholecystitis, diverticulosis, ischemic bowel, pancreatitis, hepatitis, UTI, gastroenteritis, AAA, incarcerated hernia, bowel obstruction, constipation, inflammatory bowel, hepatitis, peptic ulcer disease, splenic infarction, perforated viscus, testicular torsion, this is not meant to be an all-inclusive list EKG interpreted by me (3pts min.). @ -As above X-rays interpreted by me (1pt min.). @ -None done CT interpreted by me (1pt min.). @ -None done U/S interpreted by me (1pt. min.). @ -None done What testing was considered but not performed or refused? (CT, X-rays, U/S, labs)? Why? @ -None What meds were considered but not given or refused? Why? @ -None Did you discuss the management of the patient with other professionals (professionals i.e. , PA, STATE HISTORICAL SOCIETY DIRECTOR, lab, RT, psych nurse, licensed master social worker, superintendent commissary, teacher, planned giving officer, case planner)? Give summary @ -No Was smoking cessation discussed for >3mins.? @ -No Was critical care preformed (if so, how long)? @ -No Were there social determinants of health that impacted care today? How? (Homel essness, low income, unemployed, alcoholism, drug addiction, transportation, low edu. Level, literacy, decrease access to med. care, fpc, rehab)? @ -No Was there de-escalation of care discussed even if they declined (Discuss DNR or withdrawal of care, Hospice)? DNR status @ -No What co-morbidities impacted this encounter? (DM, HTN, Smoking, COPD, CAD, Cancer, CVA, ARF, Chemo, Hep., AIDS, mental health diagnosis, sleep apnea, morbid obesity)? @ -Diabetes Was patient admitted / discharged? Hospital course, mention meds given and route, prescriptions, significant lab abnormalities, going to OR and other pertinent info. @ -Discharge patient feels great improved with antiemetics and IV fluids. Patient did have another episode of hypoglycemia. He was able to tolerate oral intake and blood sugar improved. Patient feels comfortable discharge and return parameters discussed. Undiagnosed new problem with uncertain prognosis? @ -No Drug Therapy requiring intensive monitoring for toxicity (Heparin, Nitro, Insulin, Cardizem)? @ -No Were any procedures done? @ -No Diagnosis/symptom? @ -Nausea vomiting, hypoglycemia, dehydration Acute, or Chronic, or Acute on Chronic? @ -Acute Uncomplicated (without systemic symptoms) or Complicated (systemic symptoms)? @ -[Complicated Side effects of treatment? @ -No Exacerbation, Progression, or Severe Exacerbation? @ -No Poses a threat to life or bodily function? How? (Chest pain, [place], [place], pneumonia, PE, COPD, DKA, ARF, appy, cholecystitis, CVA, Diverticulitis, Homicidal, Suicidal, threat to staff... and all critical care pts) @ -Yes hypoglycemia - Lab Data Result diagrams: 03/02/24 14:28 03/02/24 14:28 Lab Results 03/02/24 03/02/24 03/02/24 Range/Units 14:28 14:28 14:28 WBC 19.4 H (3.8-10.6) k/uL RBC 5.26 (4.30-5.90) m/uL Hgb 15.4 (13.0-17.5) gm/dL Hct 47.4 (39.0-53.0) % MCV 90.1 (80.0-100.0) fL MCH 29.2 (25.0-35.0) pg MCHC 32.4 (31.0-37.0) g/dL RDW 15.7 H (11.5-15.5) % Plt Count 609 H (150-450) k/uL MPV 8.1 Neutrophils % 77 % Lymphocytes % 16 % Monocytes % 4 % Eosinophils % 0 % Basophils % 0 % Neutrophils # 14.9 H (1.3-7.7) k/uL Lymphocytes # 3.2 (1.0-4.8) k/uL Monocytes # 0.9 (0-1.0) k/uL Eosinophils # 0.0 (0-0.7) k/uL Basophils # 0.0 (0-0.2) k/uL VBG pH (7.31-7.41) VBG pCO2 (37-51) mmHg VBG HCO3 (24-28) mmol/L Sodium 148 H (137-145) mmol/L Potassium 3.8 (3.5-5.1) mmol/L Chloride 108 H (98-107) mmol/L Carbon Dioxide 28 (22-30) mmol/L Anion Gap 12 mmol/L BUN 32 H (9-20) mg/dL Creatinine 0.80 (0.66-1.25) mg/dL Est GFR (CKD-EPI)AfAm >90 (>60 ml/min/1.73 sqM) Est GFR (CKD-EPI)NonAf >90 (>60 ml/min/1.73 sqM) Glucose 57 L (74-99) mg/dL Plasma Lactic Acid Neymar 1.4 (0.7-2.0) mmol/L Calcium 10.8 H (8.4-10.2) mg/dL Phosphorus 3.9 (2.5-4.5) mg/dL Magnesium 2.2 (1.6-2.3) mg/dL Total Bilirubin 0.8 (0.2-1.3) mg/dL AST 24 (17-59) U/L ALT 16 (4-49) U/L Alkaline Phosphatase 142 H (38-126) U/L Total Protein 8.9 H (6.3-8.2) g/dL Albumin 5.2 H (3.5-5.0) g/dL Lipase 17 L (23-300) U/L Urine Color Urine Appearance (Clear) Urine pH (5.0-8.0) Ur Specific Levering (1.001-1.035) Urine Protein (Negative) Urine Glucose (UA) (Negative) Urine Ketones (Negative) Urine Blood (Negative) Urine Nitrite (Negative) Urine Bilirubin (Negative) Urine Urobilinogen (<2.0) mg/dL Ur Leukocyte Esterase (Negative) Urine RBC (0-5) /hpf Urine WBC (0-5) /hpf Ur Squamous Epith Cells (0-4) /hpf Hyaline Casts (0-2) /lpf Urine Mucus (None) /hpf Urine Opiates Screen (NotDetected) Ur Oxycodone Screen (NotDetected) Urine Methadone Screen (NotDetected) Ur Barbiturates Screen (NotDetected) U Tricyclic Antidepress (NotDetected) Ur Phencyclidine Scrn (NotDetected) Ur Amphetamines Screen (NotDetected) U Methamphetamines Scrn (NotDetected) U Benzodiazepines Scrn (NotDetected) Urine Cocaine Screen (NotDetected) U Marijuana (THC) Screen (NotDetected) 03/02/24 03/02/24 03/02/24 Range/Units 14:28 16:15 16:15 WBC (3.8-10.6) k/uL RBC (4.30-5.90) m/uL Hgb (13.0-17.5) gm/dL Hct (39.0-53.0) % MCV (80.0-100.0) fL MCH (25.0-35.0) pg MCHC (31.0-37.0) g/dL RDW (11.5-15.5) % Plt Count (150-450) k/uL MPV Neutrophils % % Lymphocytes % % Monocytes % % Eosinophils % % Basophils % % Neutrophils # (1.3-7.7) k/uL Lymphocytes # (1.0-4.8) k/uL Monocytes # (0-1.0) k/uL Eosinophils # (0-0.7) k/uL Basophils # (0-0.2) k/uL VBG pH 7.49 H (7.31-7.41) VBG pCO2 41 (37-51) mmHg VBG HCO3 31 H (24-28) mmol/L Sodium (137-145) mmol/L Potassium (3.5-5.1) mmol/L Chloride (98-107) mmol/L Carbon Dioxide (22-30) mmol/L Anion Gap mmol/L BUN (9-20) mg/dL Creatinine (0.66-1.25) mg/dL Est GFR (CKD-EPI)AfAm (>60 ml/min/1.73 sqM) Est GFR (CKD-EPI)NonAf (>60 ml/min/1.73 sqM) Glucose (74-99) mg/dL Plasma Lactic Acid Neymar (0.7-2.0) mmol/L Calcium (8.4-10.2) mg/dL Phosphorus (2.5-4.5) mg/dL Magnesium (1.6-2.3) mg/dL Total Bilirubin (0.2-1.3) mg/dL AST (17-59) U/L ALT (4-49) U/L Alkaline Phosphatase (38-126) U/L Total Protein (6.3-8.2) g/dL Albumin (3.5-5.0) g/dL Lipase (23-300) U/L Urine Color Yellow Urine Appearance Clear (Clear) Urine pH 6.5 (5.0-8.0) Ur Specific [place] 1.031 (1.001-1.035) Urine Protein 2+ H (Negative) Urine Glucose (UA) 3+ H (Negative) Urine Ketones 3+ H (Negative) Urine Blood Negative (Negative) Urine Nitrite Negative (Negative) Urine Bilirubin Negative (Negative) Urine Urobilinogen 3.0 (<2.0) mg/dL Ur Leukocyte Esterase Negative (Negative) Urine RBC 4 (0-5) /hpf Urine WBC 7 H (0-5) /hpf Ur Squamous Epith Cells 1 (0-4) /hpf Hyaline Casts 5 H (0-2) /lpf Urine Mucus Many H (None) /hpf Urine Opiates Screen Not Detected (NotDetected) Ur Oxycodone Screen Not Detected (NotDetected) Urine Methadone Screen Not Detected (NotDetected) Ur Barbiturates Screen Not Detected (NotDetected) U Tricyclic Antidepress Not Detected (NotDetected) Ur Phencyclidine Scrn Not Detected (NotDetected) Ur Amphetamines Screen Not Detected (NotDetected) U Methamphetamines Scrn Not Detected (NotDetected) U Benzodiazepines Scrn Not Detected (NotDetected) Urine Cocaine Screen Not Detected (NotDetected) U Marijuana (THC) Screen Detected H (NotDetected) - EKG Data -: EKG Interpreted by Ok EKG Comments: EKG performed at 14: [address] sinus tachycardia with short CT rate of 124 CT 104 QRS 78 QT/QTc 336/410 Disposition Clinical Impression: Nausea & vomiting, Hypoglycemia Disposition: HOME SELF-CARE Condition: Stable Instructions (If sedation given, give patient instructions): Acute Nausea and Vomiting (ED) Additional Instructions: Please return to the Emergency Department if symptoms worsen or any other concerns. Prescriptions: Ondansetron Odt [Zofran Odt] 4 mg PO Q8HR PRN #10 tab PRN Reason: Nausea Is patient prescribed a controlled substance at d/c from ED?: No Referrals: None,Stated [Primary Care Provider] - 1-2 days Time of Disposition: 17:05
[2024-03-02 16:29] LABS: Appearance,Urine Clear (Clear); Bilirubin,Urine Negative (Negative); Blood,Urine Negative (Negative); Color,Urine Yellow; Glucose,Urine (UA) 3+ (Negative); Hyaline Casts,Urine 5 /lpf (0-2); Leukocyte Esterase,Urine Negative (Negative); Mucus,Urine Many /hpf; Nitrite,Urine Negative (Negative); PH, Urine 6.5 (5.0-8.0); Protein,Urine 2+ (Negative); RBC,Urine 4 /hpf (0-5); Specific Gravity,Urine 1.031 (1.001-1.035); Squamous Epithelial Cell,Urine 1 /hpf (0-4); WBC,Urine 7 /hpf (0-5)
[2024-03-02 16:37] LABS: Ketones,Urine 3+ (Negative)
[2024-03-02 17:06] LABS: Urn Cannabinoid Scrn Detected (NotDetected)
[2024-03-02 17:07] LABS: Amphetamine Screen,Urine Not Detected (NotDetected); Barbiturate Screen,Urine Not Detected (NotDetected); Benzodiazepines Screen,Urine Not Detected (NotDetected); Cocaine Screen,Urine Not Detected (NotDetected); Methadone Screen, Urine Not Detected (NotDetected); Opiate Screen,Urine Not Detected (NotDetected); Oxycodone Screen, Urine Not Detected (NotDetected); Phencyclidine Screen,Urine Not Detected (NotDetected); Tricyclic Antidepressant,Urine Not Detected (NotDetected)
[2024-03-02 17:16] VITALS: BP 174/97; PULSE 98; RESP 20; TEMP 98.9
[2024-03-09 15:06] LABS: Glucose,Whole Blood 116 mg/dL (70-110)
[2024-03-09 15:07] LABS: Glucose,Whole Blood 56 mg/dL (70-110)
[2024-03-09 15:07] LABS: Glucose,Whole Blood 52 mg/dL (70-110)
[2024-03-09 15:07] LABS: Glucose,Whole Blood 165 mg/dL (70-110)
== END 2024-03-02 17:14 | disposition home or self-care (01) ==
LOC: EC 13:58
CPT/HCPCS: 36415; 80053; 80306; 81001; 82803; 83605; 83690; 83735; 84100; 85025; 93005; 96361; 96374; 96375; 99284

== ENCOUNTER 2024-05-26 19:04 | Emergency (ER) | payer MEDICARE, OTHER ==
[2024-05-26 19:11] VITALS: TEMP 98.2
[2024-05-26 19:13] LABS: Glucose,Whole Blood 194 mg/dL (70-110)
--- NOTE | 2024-05-26 19:23 | ED ---
Nausea/Vomiting/Diarrhea HPI - General Chief complaint: Nausea/Vomiting/Diarrhea Stated complaint: vomitting/type 1 diabetic Time Seen by Provider: 05/26/24 19:23 Source: patient, family, RN notes reviewed Mode of arrival: wheelchair Limitations: no limitations - History of Present Illness Initial comments: 34-year-old male with a past medical history significant of type 1 diabetes, asthma, hypertension, hyperlipidemia presented to the ER for evaluation of nausea, vomiting and abdominal pain. Patient reports for the past 24 hours he has been ill and persistently vomiting. He also reports epigastric abdominal discomfort but relates this to vomiting. He states yesterday he did have a bout of diarrhea. , at bedside, states RSV has been going through the house. also reports patient's sugars are poorly controlled with subcu insulin. Prior to arrival glucometer read "high". Patient was given 10 units of subcu insulin at that time. Patient denies any recent fevers, chills, cough, congestion, runny nose, chest pain, shortness of breath or peripheral edema. No urinary complaints. - Related Data Home Medications Medication Instructions Recorded Confirmed Insulin Aspart [NovoLOG] 10 units SQ DIRECTED 03/02/24 05/26/24 Insulin Glulisine [Apidra] 31 unit SQ DIRECTED 03/02/24 05/26/24 Allergies Allergy/AdvReac Type Severity Reaction Status Date / Time latex Allergy Rash/Hives Verified 05/26/24 19:06 Review of Systems ROS Statement: Those systems with pertinent positive or pertinent negative responses have been documented in the HPI. ROS Other: All systems not noted in ROS Statement are negative. Past Medical History Past Medical History: Asthma, Diabetes Mellitus, Hyperlipidemia, Hypertension, Osteoarthritis (OA) Additional Past Medical History / Comment(s): IDDM type I, diabetic renato roparesis, neuropathy bilateral hands/fingers, migraines, arthrtitis fingers/knees, past R hand and L femur fractures. Previous DKA History of Any Multi-Drug Resistant Organisms: MRSA Date of last positivie culture/infection: 04/26/2014 MDRO Source:: Face Past Surgical History: Ear Surgery, Orthopedic Surgery Additional Past Surgical History / Comment(s): R hand surgery d/t fracture- pinned and pins since removed, L leg femur fracture with pin that eventually was removed, bilateral myringotomy with tubes/ear drum repairs.; Left pinky removal Past Anesthesia/Blood Transfusion Reactions: No Reported Reaction Past Psychological History: Anxiety, Bipolar, Depression Smoking Status: Current every day smoker Past Alcohol Use History: None Reported Past Drug Use History: Marijuana - Past Family History Father Family Medical History: Hyperlipidemia, Hypertension, Myocardial Infarction ([place]) Mother Family Medical History: COPD Additional Family Medical History / Comment(s): home O2, Brother(s) Family Medical History: No Reported History General Exam Limitations: no limitations General appearance: alert, in no apparent distress Course Vital Signs 05/26/24 05/26/24 05/26/24 19:06 20:48 23:01 Temperature 98.2 F Pulse Rate 139 H 106 H 98 Respiratory 20 18 18 Rate Blood Pressure 162/92 151/104 156/87 O2 Sat by Pulse 96 99 100 Oximetry - Reevaluation(s) Reevaluation #1: 05/26/24 22:03 Patient reevaluated. No signs of acute distress. Patient tolerating oral intake. Medical Decision Making - Medical Decision Making Was pt. sent in by a medical professional or institution (, PA, EQUIPMENT MONITOR PHOTOTYPESETTING, urgent care, hospital, or snf...) When possible be specific @ -No Did you speak to anyone other than the patient for history (EMS, parent, family, police, friend...)? What history was obtained from this source @ - aiding in HPI and PMHx. Did you review nursing and triage notes (agree or disagree)? Why? @ -I reviewed and agree with nursing and triage notes Were old charts reviewed (outside hosp., previous admission, EMS record, old EKG, old radiological studies, urgent care reports/EKG's, snf records)? Report findings @ -No old charts were reviewed Differential Diagnosis (chest pain, altered mental status, abdominal pain women, abdominal pain men, vaginal bleeding, weakness, fever, dyspnea, syncope, headache, dizziness, GI bleed, back pain, seizure, CVA, palpatations, mental health, musculoskeletal)? @ -Differential Abdominal Pain Men:Appendicitis, cholecystitis, diverticulosis, ischemic bowel, pancreatitis, hepatitis, UTI, gastroenteritis, AAA, incarcerated hernia, bowel obstruction, constipation, inflammatory bowel, hepatitis, peptic ulcer disease, splenic infarction, perforated viscus, testicular torsion, this is not meant to be an all-inclusive list EKG interpreted by me (3pts min.). @ -As above X-rays interpreted by me (1pt min.). @ -CXR interpreted by me negative for acute cardiopulmonary process. CT interpreted by me (1pt min.). @ -None done U/S interpreted by me (1pt. min.). @ -None done What testing was considered but not performed or refused? (CT, X-rays, U/S, labs)? Why? @ -None What meds were considered but not given or refused? Why? @ -None Did you discuss the management of the patient with other professionals (professionals i.e. , PA, EQUIPMENT MONITOR PHOTOTYPESETTING, lab, RT, psych nurse, social worker school, hearing therapist, teacher, commissary officer, lining caser)? Give summary @ -No Was smoking cessation discussed for >3mins.? @ -No Was critical care preformed (if so, how long)? @ -No Were there social determinants of health that impacted care today? How? (Homelessness, low income, unemployed, alcoholism, drug addiction, transport ation, low edu. Level, literacy, decrease access to med. care, nursing home, rehab)? @ -No Was there de-escalation of care discussed even if they declined (Discuss DNR or withdrawal of care, Hospice)? DNR status @ -No What co-morbidities impacted this encounter? (DM, HTN, Smoking, COPD, CAD, Cancer, CVA, ARF, Chemo, Hep., AIDS, mental health diagnosis, sleep apnea, morbid obesity)? @ -Type 1 diabetes Was patient admitted / discharged? Hospital course, mention meds given and route, prescriptions, significant lab abnormalities, going to OR and other pertinent info. @ -Discharge. 34 year old male presenting to the ER for evaluation of nausea and vomiting. History and physical exam completed. Vitals upon examination remarkable for tachycardia at 139 bpm. Vitals otherwise stable. Patient is actively vomiting upon exam. There is epigastric abdominal tenderness to palpation. Fingerstick glucose 194 in triage. DKA rule out workup will be obtained. CBC remarkable for leukocytosis 17.7 with a left shift which is likely related to patient's vomiting, dehydration and smoking habits. CMP showing signs of dehydration with a glucose of 194, potassium 4.6, anion gap 17. Lactic acidosis of 5.3. Urinalysis also also concerning of dehydration with 2+ ketones, 2+ protein and 4+ glucose. Acetone negative. VBG pH 7.39. Viral swabs negative. Patient given 2 L IV fluid bolus along with Zofran and famotidine, with improvement of symptoms. Upon reevaluation, patient resting comfortably in exam room no signs of acute distress. Patient tolerating oral intake. Repeat BMP and lactic obtained. On repeat anion gap 8, glucose 136, lactic 1.6. As patient is not in DKA with no reoccurent episodes of emesis, I believe patient is stable for discharge and outpatient follow-up. Patient was not given IV insulin as sugars remained under 200 and he took 10 units prior to arrival. Symptoms likely viral in nature but cannot rule out hyperemesis syndrome or dehydration. Strict return parameters discussed. Patient discharged in stable condition with follow-up to PCP. Patient verbally expressed understanding and agreement with care plan. Case discussed with ED attending, Dr. Cox. Undiagnosed new problem with uncertain prognosis? @ -No Drug Therapy requiring intensive monitoring for toxicity (Heparin, Nitro, Insulin, Cardizem)? @ -No Were any procedures done? @ -No Diagnosis/symptom? @ -Viral gastroenteritis/dehydration Acute, or Chronic, or Acute on Chronic? @ -Acute Uncomplicated (without systemic symptoms) or Complicated (systemic symptoms)? @ -Complicated Side effects of treatment? @ -No Exacerbation, Progression, or Severe Exacerbation? @ -No Poses a threat to life or bodily function? How? (Chest pain, [place], [place], pneumonia, PE, COPD, DKA, ARF, appy, cholecystitis, CVA, Diverticulitis, Homicidal, Suicidal, threat to staff... and all critical care pts) @ -No - Lab Data Result diagrams: 05/26/24 19:32 05/26/24 22:33 Lab Results 05/26/24 05/26/24 05/26/24 Range/Units 19:11 19:20 19:30 WBC (3.8-10.6) k/uL RBC (4.30-5.90) m/uL Hgb (13.0-17.5) gm/dL Hct (39.0-53.0) % MCV (80.0-100.0) fL MCH (25.0-35.0) pg MCHC (31.0-37.0) g/dL RDW (11.5-15.5) % Plt Count (150-450) k/uL MPV Neutrophils % % Lymphocytes % % Monocytes % % Eosinophils % % Basophils % % Neutrophils # (1.3-7.7) k/uL Lymphocytes # (1.0-4.8) k/uL Monocytes # (0-1.0) k/uL Eosinophils # (0-0.7) k/uL Basophils # (0-0.2) k/uL VBG pH 7.39 (7.31-7.41) VBG pCO2 53 H (37-51) mmHg VBG HCO3 32 H (24-28) mmol/L Sodium (137-145) mmol/L Potassium (3.5-5.1) mmol/L Chloride (98-107) mmol/L Carbon Dioxide (22-30) mmol/L Anion Gap mmol/L BUN (9-20) mg/dL Creatinine (0.66-1.25) mg/dL Est GFR (CKD-EPI)AfAm (>60 ml/min/1.73 sqM) Est GFR (CKD-EPI)NonAf (>60 ml/min/1.73 sqM) Glucose (74-99) mg/dL POC Glucose (mg/dL) 194 H (70-110) mg/dL POC Glu Bun Icer ID Stephen Talavera Plasma Lactic Acid Neymar (0.7-2.0) mmol/L Calcium (8.4-10.2) mg/dL Magnesium (1.6-2.3) mg/dL Total Bilirubin (0.2-1.3) mg/dL AST (17-59) U/L ALT (4-49) U/L Alkaline Phosphatase (38-126) U/L Total Protein (6.3-8.2) g/dL Albumin (3.5-5.0) g/dL Amylase (30-110) U/L Lipase (23-300) U/L Urine Color Light Yellow Urine Appearance Clear (Clear) Urine pH 5.5 (5.0-8.0) Ur Specific [place] 1.033 (1.001-1.035) Urine Protein 2+ H (Negative) Urine Glucose (UA) 4+ H (Negative) Urine Ketones 2+ H (Negative) Urine Blood Negative (Negative) Urine Nitrite Negative (Negative) Urine Bilirubin Negative (Negative) Urine Urobilinogen <2.0 (<2.0) mg/dL Ur Leukocyte Esterase Negative (Negative) Urine RBC <1 (0-5) /hpf Urine WBC 1 (0-5) /hpf Calcium Oxalate Crystal Rare H (None) /hpf Hyaline Casts 15 H (0-2) /lpf Urine Mucus Occasional H (None) /hpf Urine Opiates Screen (NotDetected) Ur Oxycodone Screen (NotDetected) Urine Methadone Screen (NotDetected) Ur Barbiturates Screen (NotDetected) U Tricyclic Antidepress (NotDetected) Ur Phencyclidine Scrn (NotDetected) Ur Amphetamines Screen (NotDetected) U Methamphetamines Scrn (NotDetected) U Benzodiazepines Scrn (NotDetected) Urine Cocaine Screen (NotDetected) U Marijuana (THC) Screen (NotDetected) Acetone, Qual (Negative) Influenza Type A (PCR) (Not Detectd) Influenza Type B (PCR) (Not Detectd) RSV (PCR) (Not Detectd) SARS-CoV-2 (PCR) (Not Detectd) 05/26/24 05/26/24 05/26/24 Range/Units 19:32 19:32 19:32 WBC 17.7 H (3.8-10.6) k/uL RBC 5.77 (4.30-5.90) m/uL Hgb 17.0 (13.0-17.5) gm/dL Hct 52.1 (39.0-53.0) % MCV 90.3 (80.0-100.0) fL MCH 29.4 (25.0-35.0) pg MCHC 32.6 (31.0-37.0) g/dL RDW 14.5 (11.5-15.5) % Plt Count 389 (150-450) k/uL MPV 8.6 Neutrophils % 79 % Lymphocytes % 11 % Monocytes % 7 % Eosinophils % 0 % Basophils % 0 % Neutrophils # 14.0 H (1.3-7.7) k/uL Lymphocytes # 2.0 (1.0-4.8) k/uL Monocytes # 1.2 H (0-1.0) k/uL Eosinophils # 0.1 (0-0.7) k/uL Basophils # 0.0 (0-0.2) k/uL VBG pH (7.31-7.41) VBG pCO2 (37-51) mmHg VBG HCO3 (24-28) mmol/L Sodium 147 H (137-145) mmol/L Potassium 4.6 (3.5-5.1) mmol/L Chloride 102 (98-107) mmol/L Carbon Dioxide 28 (22-30) mmol/L Anion Gap 17 mmol/L BUN 57 H (9-20) mg/dL Creatinine 1.23 (0.66-1.25) mg/dL Est GFR (CKD-EPI)AfAm 89 (>60 ml/min/1.73 sqM) Est GFR (CKD-EPI)NonAf 77 (>60 ml/min/1.73 sqM) Glucose 194 H (74-99) mg/dL POC Glucose (mg/dL) (70-110) mg/dL POC Glu Bun Icer ID Plasma Lactic Acid Neymar 5.3 H* (0.7-2.0) mmol/L Calcium 10.7 H (8.4-10.2) mg/dL Magnesium 2.2 (1.6-2.3) mg/dL Total Bilirubin 1.0 (0.2-1.3) mg/dL AST 30 (17-59) U/L ALT 29 (4-49) U/L Alkaline Phosphatase 147 H (38-126) U/L Total Protein 10.0 H (6.3-8.2) g/dL Albumin 5.6 H (3.5-5.0) g/dL Amylase (30-110) U/L Lipase (23-300) U/L Urine Color Urine Appearance (Clear) Urine pH (5.0-8.0) Ur Specific [place] (1.001-1.035) Urine Protein (Negative) Urine Glucose (UA) (Negative) Urine Ketones (Negative) Urine Blood (Negative) Urine Nitrite (Negative) Urine Bilirubin (Negative) Urine Urobilinogen (<2.0) mg/dL Ur Leukocyte Esterase (Negative) Urine RBC (0-5) /hpf Urine WBC (0-5) /hpf Calcium Oxalate Crystal (None) /hpf Hyaline Casts (0-2) /lpf Urine Mucus (None) /hpf Urine Opiates Screen (NotDetected) Ur Oxycodone Screen (NotDetected) Urine Methadone Screen (NotDetected) Ur Barbiturates Screen (NotDetected) U Tricyclic Antidepress (NotDetected) Ur Phencyclidine Scrn (NotDetected) Ur Amphetamines Screen (NotDetected) U Methamphetamines Scrn (NotDetected) U Benzodiazepines Scrn (NotDetected) Urine Cocaine Screen (NotDetected) U Marijuana (THC) Screen (NotDetected) Acetone, Qual Negative (Negative) Influenza Type A (PCR) (Not Detectd) Influenza Type B (PCR) (Not Detectd) RSV (PCR) (Not Detectd) SARS-CoV-2 (PCR) (Not Detectd) 05/26/24 05/26/24 05/26/24 Range/Units 19:32 20:40 20:43 WBC (3.8-10.6) k/uL RBC (4.30-5.90) m/uL Hgb (13.0-17.5) gm/dL Hct (39.0-53.0) % MCV (80.0-100.0) fL MCH (25.0-35.0) pg MCHC (31.0-37.0) g/dL RDW (11.5-15.5) % Plt Count (150-450) k/uL MPV Neutrophils % % Lymphocytes % % Monocytes % % Eosinophils % % Basophils % % Neutrophils # (1.3-7.7) k/uL Lymphocytes # (1.0-4.8) k/uL Monocytes # (0-1.0) k/uL Eosinophils # (0-0.7) k/uL Basophils # (0-0.2) k/uL VBG pH (7.31-7.41) VBG pCO2 (37-51) mmHg VBG HCO3 (24-28) mmol/L Sodium (137-145) mmol/L Potassium (3.5-5.1) mmol/L Chloride (98-107) mmol/L Carbon Dioxide (22-30) mmol/L Anion Gap mmol/L BUN (9-20) mg/dL Creatinine (0.66-1.25) mg/dL Est GFR (CKD-EPI)AfAm (>60 ml/min/1.73 sqM) Est GFR (CKD-EPI)NonAf (>60 ml/min/1.73 sqM) Glucose (74-99) mg/dL POC Glucose (mg/dL) (70-110) mg/dL POC Glu Bun Icer ID Plasma Lactic Acid Neymar (0.7-2.0) mmol/L Calcium (8.4-10.2) mg/dL Magnesium (1.6-2.3) mg/dL Total Bilirubin (0.2-1.3) mg/dL AST (17-59) U/L ALT (4-49) U/L Alkaline Phosphatase (38-126) U/L Total Protein (6.3-8.2) g/dL Albumin (3.5-5.0) g/dL Amylase 64 (30-110) U/L Lipase 13 L (23-300) U/L Urine Color Urine Appearance (Clear) Urine pH (5.0-8.0) Ur Specific [place] (1.001-1.035) Urine Protein (Negative) Urine Glucose (UA) (Negative) Urine Ketones (Negative) Urine Blood (Negative) Urine Nitrite (Negative) Urine Bilirubin (Negative) Urine Urobilinogen (<2.0) mg/dL Ur Leukocyte Esterase (Negative) Urine RBC (0-5) /hpf Urine WBC (0-5) /hpf Calcium Oxalate Crystal (None) /hpf Hyaline Casts (0-2) /lpf Urine Mucus (None) /hpf Urine Opiates Screen Not Detected (NotDetected) Ur Oxycodone Screen Not Detected (NotDetected) Urine Methadone Screen Not Detected (NotDetected) Ur Barbiturates Screen Not Detected (NotDetected) U Tricyclic Antidepress Not Detected (NotDetected) Ur Phencyclidine Scrn Not Detected (NotDetected) Ur Amphetamines Screen Not Detected (NotDetected) U Methamphetamines Scrn Not Detected (NotDetected) U Benzodiazepines Scrn Not Detected (NotDetected) Urine Cocaine Screen Not Detected (NotDetected) U Marijuana (THC) Screen Detected H (NotDetected) Acetone, Qual (Negative) Influenza Type A (PCR) Not Detected (Not Detectd) Influenza Type B (PCR) Not Detected (Not Detectd) RSV (PCR) Not Detected (Not Detectd) SARS-CoV-2 (PCR) Not Detected (Not Detectd) 05/26/24 05/26/24 05/26/24 Range/Units 22:15 22:28 22:33 WBC (3.8-10.6) k/uL RBC (4.30-5.90) m/uL Hgb (13.0-17.5) gm/dL Hct (39.0-53.0) % MCV (80.0-100.0) fL MCH (25.0-35.0) pg MCHC (31.0-37.0) g/dL RDW (11.5-15.5) % Plt Count (150-450) k/uL MPV Neutrophils % % Lymphocytes % % Monocytes % % Eosinophils % % Basophils % % Neutrophils # (1.3-7.7) k/uL Lymphocytes # (1.0-4.8) k/uL Monocytes # (0-1.0) k/uL Eosinophils # (0-0.7) k/uL Basophils # (0-0.2) k/uL VBG pH (7.31-7.41) VBG pCO2 (37-51) mmHg VBG HCO3 (24-28) mmol/L Sodium 145 (137-145) mmol/L Potassium 4.2 (3.5-5.1) mmol/L Chloride 110 H (98-107) mmol/L Carbon Dioxide 27 (22-30) mmol/L Anion Gap 8 mmol/L BUN 54 H (9-20) mg/dL Creatinine 1.01 (0.66-1.25) mg/dL Est GFR (CKD-EPI)AfAm >90 (>60 ml/min/1.73 sqM) Est GFR (CKD-EPI)NonAf >90 (>60 ml/min/1.73 sqM) Glucose 136 H (74-99) mg/dL POC Glucose (mg/dL) 122 H (70-110) mg/dL POC Glu Bun Icer ID [facility] Plasma Lactic Acid Neymar 1.6 (0.7-2.0) mmol/L Calcium 9.3 (8.4-10.2) mg/dL Magnesium (1.6-2.3) mg/dL Total Bilirubin (0.2-1.3) mg/dL AST (17-59) U/L ALT (4-49) U/L Alkaline Phosphatase (38-126) U/L Total Protein (6.3-8.2) g/dL Albumin (3.5-5.0) g/dL Amylase (30-110) U/L Lipase (23-300) U/L Urine Color Urine Appearance (Clear) Urine pH (5.0-8.0) Ur Specific [place] (1.001-1.035) Urine Protein (Negative) Urine Glucose (UA) (Negative) Urine Ketones (Negative) Urine Blood (Negative) Urine Nitrite (Negative) Urine Bilirubin (Negative) Urine Urobilinogen (<2.0) mg/dL Ur Leukocyte Esterase (Negative) Urine RBC (0-5) /hpf Urine WBC (0-5) /hpf Calcium Oxalate Crystal (None) /hpf Hyaline Casts (0-2) /lpf Urine Mucus (None) /hpf Urine Opiates Screen (NotDetected) Ur Oxycodone Screen (NotDetected) Urine Methadone Screen (NotDetected) Ur Barbiturates Screen (NotDetected) U Tricyclic Antidepress (NotDetected) Ur Phencyclidine Scrn (NotDetected) Ur Amphetamines Screen (NotDetected) U Methamphetamines Scrn (NotDetected) U Benzodiazepines Scrn (NotDetected) Urine Cocaine Screen (NotDetected) U Marijuana (THC) Screen (NotDetected) Acetone, Qual (Negative) Influenza Type A (PCR) (Not Detectd) Influenza Type B (PCR) (Not Detectd) RSV (PCR) (Not Detectd) SARS-CoV-2 (PCR) (Not Detectd) - EKG Data -: EKG Interpreted by Me EKG Comments: EKG taken at 19: 38 showing sinus tachycardia nonspecific T wave abnormality. No ST segment abnormality. Ventricular rate 113, AR interval 112, QRS duration 81, QT/QTc 262/329. - Radiology Data Radiology results: report reviewed, image reviewed Disposition Clinical Impression: Viral gastroenteritis Disposition: HOME SELF-CARE Condition: Stable Instructions (If sedation given, give patient instructions): Acute Nausea and Vomiting (ED) Additional Instructions: Follow-up PCP. Return to the ER for any new or worsening concerns. Is patient prescribed a controlled substance at d/c from ED?: No Referrals: Supriya Edward MD [Primary Care Provider] - 1-2 days Time of Disposition: 22:54
[2024-05-26] MEDS: SODIUM CHLORIDE 0.9% 1,000 ML IV STA ×2 (19:30→21:23)
[2024-05-26] MEDS: ONDANSETRON 4 MG/2 ML VIAL IVP STA (19:30)
[2024-05-26 19:42] LABS: VBG PH 7.39 (7.31-7.41)
[2024-05-26 19:43] LABS: Basophils % (A) 0 %; Eosinophils # (A) 0.1 k/uL (0-0.7); Eosinophils % (A) 0 %; HCT 52.1 % (39.0-53.0); Lymphocytes % (A) 11 %; MCH 29.4 pg (25.0-35.0); MCHC 32.6 g/dL (31.0-37.0); MCV 90.3 fL (80.0-100.0); Mean Platelet Volume 8.6; Monocytes # (A) 1.2 k/uL (0-1.0); Monocytes % (A) 7 %; Neutrophils % (A) 79 %; Platelet Count 389 k/uL (150-450); RBC 5.77 m/uL (4.30-5.90); RDW 14.5 % (11.5-15.5); WBC 17.7 k/uL (3.8-10.6)
[2024-05-26] MEDS: FAMOTIDINE 20 MG/2 ML VIAL IV STA (19:44)
[2024-05-26 19:55] LABS: AST 30 U/L (17-59); African American GFR (CKD) 89 (>60 ml/min/1.73 sqM); Albumin 5.6 g/dL (3.5-5.0); Alkaline Phosphatase 147 U/L (38-126); Anion Gap 17 mmol/L; Blood Urea Nitrogen 57 mg/dL (9-20); Calcium 10.7 mg/dL (8.4-10.2); Carbon Dioxide 28 mmol/L (22-30); Chloride 102 mmol/L (98-107); Glucose 194 mg/dL (74-99); Magnesium 2.2 mg/dL (1.6-2.3); Non-African American GFR(CKD) 77 (>60 ml/min/1.73 sqM); Sodium 147 mmol/L (137-145)
--- NOTE | 2024-05-26 19:57 | XR ---
EXAMINATION TYPE: XR chest 2V DATE OF EXAM: 05/26/2024 7:53 PM COMPARISON: Prior chest radiograph 09/15/2023. CLINICAL INDICATION: Male, 34 years old with history of poss dka; [facility] TECHNIQUE: XR chest 2V Frontal and lateral views of the chest. FINDINGS: Lungs/Pleura: There is no evidence of pleural effusion, focal consolidation, or pneumothorax. Pulmonary vascularity: Unremarkable. Heart/mediastinum: Cardiomediastinal silhouette is unremarkable. Musculoskeletal: No acute osseous pathology. Other findings: None IMPRESSION: No acute cardiopulmonary disease/process. [facility] Concepcion Bates, , 05/26/2024 7:55 PM
[2024-05-26 20:01] LABS: ALT 29 U/L (4-49)
[2024-05-26 20:49] VITALS: RESP 18
[2024-05-26 20:59] LABS: Amylase 64 U/L (30-110); Lipase 13 U/L (23-300)
[2024-05-26 21:01] LABS: Potassium 4.6 mmol/L (3.5-5.1)
[2024-05-26 21:46] LABS: Appearance,Urine Clear (Clear); Bilirubin,Urine Negative (Negative); Blood,Urine Negative (Negative); Calcium Oxalate Crystals,Urine Rare /hpf; Color,Urine Light Yellow; Glucose,Urine (UA) 4+ (Negative); Hyaline Casts,Urine 15 /lpf (0-2); Leukocyte Esterase,Urine Negative (Negative); Mucus,Urine Occasional /hpf; Nitrite,Urine Negative (Negative); PH, Urine 5.5 (5.0-8.0); Protein,Urine 2+ (Negative); RBC,Urine <1 /hpf (0-5); Specific Gravity,Urine 1.033 (1.001-1.035); Urobilinogen,Urine <2.0 mg/dL (<2.0); WBC,Urine 1 /hpf (0-5)
[2024-05-26 22:05] LABS: Ketones,Urine 2+ (Negative)
[2024-05-26 22:10] LABS: Cocaine Screen,Urine Not Detected (NotDetected); Opiate Screen,Urine Not Detected (NotDetected); Phencyclidine Screen,Urine Not Detected (NotDetected); Urn Cannabinoid Scrn Detected (NotDetected)
[2024-05-26 22:11] LABS: Amphetamine Screen,Urine Not Detected (NotDetected); Barbiturate Screen,Urine Not Detected (NotDetected); Benzodiazepines Screen,Urine Not Detected (NotDetected); Methadone Screen, Urine Not Detected (NotDetected); Oxycodone Screen, Urine Not Detected (NotDetected); Tricyclic Antidepressant,Urine Not Detected (NotDetected)
[2024-05-26 22:16] LABS: Glucose,Whole Blood 122 mg/dL (70-110)
[2024-05-26 22:51] LABS: African American GFR (CKD) >90 (>60 ml/min/1.73 sqM); Anion Gap 8 mmol/L; Blood Urea Nitrogen 54 mg/dL (9-20); Calcium 9.3 mg/dL (8.4-10.2); Carbon Dioxide 27 mmol/L (22-30); Chloride 110 mmol/L (98-107); Glucose 136 mg/dL (74-99); Non-African American GFR(CKD) >90 (>60 ml/min/1.73 sqM); Potassium 4.2 mmol/L (3.5-5.1); Sodium 145 mmol/L (137-145)
[2024-05-26 23:03] VITALS: BP 156/87; PULSE 98
== END 2024-05-26 23:03 | disposition home or self-care (01) ==
LOC: EC 19:04
DX: A08.4 Viral intestinal infection, unspecified (principal); F17.200 Nicotine dependence, unspecified, uncomplicated; Z91.040 Latex allergy status; E10.9 Type 1 diabetes mellitus without complications
CPT/HCPCS: 36415; 93005; 80053; 80048; 82150; 82803; 82009; 83605; 83690; 83735; 85025; 81001; 80306; 87636; 71046; 99284; 96374; 96375; 96361 ×2; J2405; J3490

== ENCOUNTER 2024-05-28 05:28 | Emergency (ER) | payer MEDICARE ==
[2024-05-28 05:34] VITALS: TEMP 97.4
--- NOTE | 2024-05-28 05:43 | ED ---
Recheck HPI - General Chief Complaint: Nausea/Vomiting/Diarrhea Stated Complaint: Vomiting Time Seen by Provider: 05/28/24 05:43 Source: patient, family, RN notes reviewed, old records reviewed Mode of arrival: wheelchair Limitations: no limitations - History of Present Illness Initial Comments: This is a 34-year-old male to the ER for evaluation today. Patient presents today for evaluation of nausea vomiting uncontrolled nausea vomiting in the setting of elevated blood sugar. Patient states multiple failures at his house and not feeling well MD Complaint: abnormal lab (Elevated blood sugar), other (Persistent nausea vom iting) -: days(s) Returns Today for: Called Because of Abnormal Lab/Test Context: called for abnormal lab result Associated Symptoms: none Treatments Prior to Arrival: other - Related Data Home Medications Medication Instructions Recorded Confirmed Insulin Aspart [NovoLOG] 10 units SQ DIRECTED 03/02/24 05/26/24 Insulin Glulisine [Apidra] 31 unit SQ DIRECTED 03/02/24 05/26/24 Allergies Allergy/AdvReac Type Severity Reaction Status Date / Time latex Allergy Rash/Hives Verified 05/28/24 05:30 Review of Systems ROS Statement: Those systems with pertinent positive or pertinent negative responses have been documented in the HPI. ROS Other: All systems not noted in ROS Statement are negative. Past Medical History Past Medical History: Asthma, Diabetes Mellitus, Hyperlipidemia, Hypertension, Osteoarthritis (OA) Additional Past Medical History / Comment(s): IDDM type I, diabetic gastroparesis, neuropathy bilateral hands/fingers, migraines, arthrtitis finge rs/knees, past R hand and L femur fractures. Previous DKA History of Any Multi-Drug Resistant Organisms: MRSA Date of last positivie culture/infection: 04/26/2014 MDRO Source:: Face Past Surgical History: Ear Surgery, Orthopedic Surgery Additional Past Surgical History / Comment(s): R hand surgery d/t fracture- pinned and pins since removed, L leg femur fracture with pin that eventually was removed, bilateral myringotomy with tubes/ear drum repairs.; Left pinky removal Past Anesthesia/Blood Transfusion Reactions: No Reported Reaction Past Psychological History: Anxiety, Bipolar, Depression Smoking Status: Current every day smoker Past Alcohol Use History: None Reported Past Drug Use History: Marijuana - Past Family History Father Family Medical History: Hyperlipidemia, Hypertension, Myocardial Infarction (ID) Mother Family Medical History: COPD Additional Family Medical History / Comment(s): home O2, Brother(s) Family Medical History: No Reported History General Exam Limitations: no limitations General appearance: alert, in no apparent distress Head exam: Present: atraumatic, normocephalic, normal inspection Eye exam: Present: normal appearance, PERRL, EOMI. Absent: scleral icterus, conjunctival injection, periorbital swelling ENT exam: Present: normal exam, mucous membranes moist Neck exam: Present: normal inspection. Absent: tenderness, meningismus, lymphadenopathy Respiratory exam: Present: normal lung sounds bilaterally. Absent: respiratory distress, wheezes, rales, rhonchi, stridor Cardiovascular Exam: Present: regular rate, normal rhythm, normal heart sounds. Absent: systolic murmur, diastolic murmur, rubs, gallop, clicks GI/Abdominal exam: Present: soft, normal bowel sounds. Absent: distended, tenderness, guarding, rebound, rigid Extremities exam: Present: normal inspection, full ROM, normal capillary refill. Absent: tenderness, pedal edema, joint swelling, calf tenderness Back exam: Present: normal inspection Neurological exam: Present: alert, oriented X3, CN II-XII intact Psychiatric exam: Present: normal affect, normal mood Skin exam: Present: warm, dry, intact, normal color. Absent: rash Course Vital Signs 05/28/24 05/28/24 05:29 06:32 Temperature 97.4 F L Pulse Rate 118 H 92 Respiratory 22 18 Rate Blood Pressure 175/104 152/101 O2 Sat by Pulse 98 Oximetry - Reevaluation(s) Reevaluation #1: 05/28/24 06:41 Medical records reviewed Reevaluation #2: Patient symptoms improved here in the ER Reevaluation #3: Patient informed of results and questions answered Reevaluation #4: Was pt. sent in by a medical professional or institution (, PA, NATIONAL BUSINESS DIRECTOR, urgent care, hospital, or halfway...) When possible be specific @ -no Did you speak to anyone other than the patient for history (EMS, parent, family, police, friend...)? What history was obtained from this source @ -no Did you review nursing and triage notes (agree or disagree)? Why? @ -agree Are old charts reviewed (outside hosp., previous admission, EMS record, old EKG, old radiological studies, urgent care reports/EKG's, halfway records)? Report findings @ -yes Differential Diagnosis (chest pain, altered mental status, abdominal pain women, abdominal pain men, vaginal bleeding, weakness, fever, dyspnea, syncope, he adache, dizziness, GI bleed, back pain, seizure, CVA, palpatations, mental health, musculoskeletal)? @ -prior EKG interpreted by me (3pts min.). @ -yes X-rays interpreted by me (1pt min.). @ -no CT interpreted by me (1pt min.). @ -no U/S interpreted by me (1pt. min.). @ -no What testing was considered but not performed or refused? (CT, X-rays, U/S, labs)? Why? @ -none What meds were considered but not given or refused? Why? @ -none Did you discuss the management of the patient with other professionals (professionals i.e. , PA, NATIONAL BUSINESS DIRECTOR, lab, RT, psych nurse, social media coordinator, credit reporter, teacher, corporation officer, case finishing machine adjuster)? Give summary @ -no Was smoking cessation discussed for >3mins.? @ -no Was critical care preformed (if so, how long)? @ -no Were there social determinants of health that impacted care today? How? (Homelessness, low income, unemployed, alcoholism, drug addiction, tr ansportation, low edu. Level, literacy, decrease access to med. care, [facility], rehab)? @ -none Was there de-escalation of care discussed even if they declined (Discuss DNR or withdrawal of care, Hospice)? DNR status @ -no What co-morbidities impacted this encounter? (DM, HTN, Smoking, COPD, CAD, Canc er, CVA, ARF, Chemo, Hep., AIDS, mental health diagnosis, sleep apnea, morbid obesity)? @ -none Was patient admitted / discharged? Hospital course, mention meds given and route, prescriptions, significant lab abnormalities, going to OR and other pertinent info. @ - 34 male with nausea vomiting diarrhea, symptoms dramatically improved here in the ER patient feels well for discharge home Discharge Undiagnosed new problem with uncertain prognosis? @ -no Drug Therapy requiring intensive monitoring for toxicity (Heparin, Nitro, Insulin, Cardizem)? @ -no Were any procedures done? @ -no Diagnosis/symptom? @ -Nausea vomiting diarrhea Acute, or Chronic, or Acute on Chronic? @ -Acute Uncomplicated (without systemic symptoms) or Complicated (systemic symptoms)? @ -Complicated Side effects of treatment? @ -no Exacerbation, Progression, or Severe Exacerbation? @ -exacerbation Poses a threat to life or bodily function? How? (Chest pain, USA, ID, pneumonia, PE, COPD, DKA, ARF, appy, cholecystitis, CVA, Diverticulitis, Homicidal, Suicidal, threat to staff... and all critical care pts) @ -no Medical Decision Making - Medical Decision Making 34 male with nausea vomiting diarrhea, symptoms dramatically improved here in the ER patient feels well for discharge home - Lab Data Result diagrams: 05/28/24 05:46 05/28/24 06:40 Lab Results 05/28/24 05/28/24 05/28/24 Range/Units 05:46 05:49 06:40 WBC 13.1 H (3.8-10.6) k/uL RBC 5.62 (4.30-5.90) m/uL Hgb 16.9 (13.0-17.5) gm/dL Hct 51.3 (39.0-53.0) % MCV 91.2 (80.0-100.0) fL MCH 30.1 (25.0-35.0) pg MCHC 32.9 (31.0-37.0) g/dL RDW 14.2 (11.5-15.5) % Plt Count 367 (150-450) k/uL MPV 8.7 Neutrophils % 62 % Lymphocytes % 26 % Monocytes % 6 % Eosinophils % 1 % Basophils % 1 % Neutrophils # 8.2 H (1.3-7.7) k/uL Lymphocytes # 3.4 (1.0-4.8) k/uL Monocytes # 0.8 (0-1.0) k/uL Eosinophils # 0.1 (0-0.7) k/uL Basophils # 0.1 (0-0.2) k/uL Sodium 141 (137-145) mmol/L Potassium 4.7 (3.5-5.1) mmol/L Chloride 105 (98-107) mmol/L Carbon Dioxide 25 (22-30) mmol/L Anion Gap 11 mmol/L BUN 46 H (9-20) mg/dL Creatinine 0.78 (0.66-1.25) mg/dL Est GFR (CKD-EPI)AfAm >90 (>60 ml/min/1.73 sqM) Est GFR (CKD-EPI)NonAf >90 (>60 ml/min/1.73 sqM) Glucose 208 H (74-99) mg/dL POC Glucose (mg/dL) 177 H (70-110) mg/dL POC Glu Pcu Rn ID Ele [place] Calcium 9.2 (8.4-10.2) mg/dL Phosphorus 4.2 (2.5-4.5) mg/dL Magnesium 2.1 (1.6-2.3) mg/dL Total Bilirubin 1.1 (0.2-1.3) mg/dL AST 26 (17-59) U/L ALT 14 (4-49) U/L Alkaline Phosphatase 112 (38-126) U/L Total Protein 7.2 (6.3-8.2) g/dL Albumin 4.3 (3.5-5.0) g/dL Acetone, Qual Negative (Negative) - EKG Data -: EKG Interpreted by Me (EKG is sinus 84 FL 92 QRS 76 QTc 341) Disposition Clinical Impression: Dehydration, Viral gastroenteritis, Nausea & vomiting Disposition: HOME SELF-CARE Condition: Good Instructions (If sedation given, give patient instructions): Acute Nausea and Vomiting (ED) Is patient prescribed a controlled substance at d/c from ED?: No Referrals: Supriya Edward MD [Primary Care Provider] - 1-2 days Time of Disposition: 06:40
[2024-05-28 05:51] LABS: Glucose,Whole Blood 177 mg/dL (70-110)
[2024-05-28] MEDS: SODIUM CHLORIDE 0.9% 1,000 ML IV STA (05:55)
[2024-05-28] MEDS: ONDANSETRON 4 MG/2 ML VIAL IVP STA (05:55)
[2024-05-28] MEDS: KETOROLAC 15 MG/ML 1 ML VIAL IVP STA (06:16)
[2024-05-28 06:17] LABS: Basophils # (A) 0.1 k/uL (0-0.2); Basophils % (A) 1 %; Eosinophils # (A) 0.1 k/uL (0-0.7); Eosinophils % (A) 1 %; HCT 51.3 % (39.0-53.0); HGB 16.9 gm/dL (13.0-17.5); Lymphocytes # (A) 3.4 k/uL (1.0-4.8); Lymphocytes % (A) 26 %; MCH 30.1 pg (25.0-35.0); MCHC 32.9 g/dL (31.0-37.0); MCV 91.2 fL (80.0-100.0); Mean Platelet Volume 8.7; Monocytes # (A) 0.8 k/uL (0-1.0); Monocytes % (A) 6 %; Neutrophils # (A) 8.2 k/uL (1.3-7.7); Neutrophils % (A) 62 %; Platelet Count 367 k/uL (150-450); RBC 5.62 m/uL (4.30-5.90); RDW 14.2 % (11.5-15.5); WBC 13.1 k/uL (3.8-10.6)
[2024-05-28] MEDS: PROCHLORPERAZINE INJ 10 MG/2 ML VIAL IVP STA (06:18)
[2024-05-28 06:33] VITALS: BP 152/101; PULSE 92; RESP 18
[2024-05-28] MEDS: traMADol 50 MG STARTER PACK 3 TAB BTL PO STA (06:47)
[2024-05-28] MEDS: ONDANSETRON 4 MG ODT STARTER PACK 2 TAB BTL PO STA (06:47)
[2024-05-28 07:19] LABS: ALT 14 U/L (4-49); African American GFR (CKD) >90 (>60 ml/min/1.73 sqM); Anion Gap 11 mmol/L; Blood Urea Nitrogen 46 mg/dL (9-20); Calcium 9.2 mg/dL (8.4-10.2); Carbon Dioxide 25 mmol/L (22-30); Chloride 105 mmol/L (98-107); Glucose 208 mg/dL (74-99); Non-African American GFR(CKD) >90 (>60 ml/min/1.73 sqM); Sodium 141 mmol/L (137-145); Total Bilirubin 1.1 mg/dL (0.2-1.3)
[2024-05-28 07:26] LABS: Potassium 4.7 mmol/L (3.5-5.1)
[2024-05-28 07:27] LABS: AST 26 U/L (17-59); Albumin 4.3 g/dL (3.5-5.0); Alkaline Phosphatase 112 U/L (38-126); Magnesium 2.1 mg/dL (1.6-2.3); Phosphorus 4.2 mg/dL (2.5-4.5); Total Protein 7.2 g/dL (6.3-8.2)
== END 2024-05-28 07:03 | disposition home or self-care (01) ==
LOC: EC 05:28
DX: A08.4 Viral intestinal infection, unspecified (principal); E86.0 Dehydration; F17.200 Nicotine dependence, unspecified, uncomplicated; Z91.040 Latex allergy status
CPT/HCPCS: 99284; 96374; 96375; 96361; 36415; 93005; 80053; 82009; 83735; 84100; 85025; J0780; J2405; J1885; S0119

== ENCOUNTER 2024-06-27 19:24 | Emergency (ER) | payer MEDICARE ==
[2024-06-27 19:39] LABS: Glucose,Whole Blood 253 mg/dL (70-110)
--- NOTE | 2024-06-27 19:53 | ED ---
Nausea/Vomiting/Diarrhea HPI - General Chief complaint: Nausea/Vomiting/Diarrhea Stated complaint: NVD Time Seen by Provider: 06/27/24 19:39 Source: patient Mode of arrival: ambulatory Limitations: no limitations - History of Present Illness Initial comments: 34-year-old male with history of type 1 diabetes, gastroparesis, asthma, hypertension, hyperlipidemia presenting with chief complaint of nausea and vomiting. Symptoms started earlier today. Patient denies any abdominal pain, chest pain, difficulty breathing. States that his sugars have been in the 200s today which is where he usually averages at. No fevers. No cough congestion or sore throat. No diarrhea. No hematemesis, hematochezia, melena. States that his son is currently slightly sick with a mild sore throat. - Related Data Home Medications Medication Instructions Recorded Confirmed Insulin Aspart [NovoLOG] 10 units SQ DIRECTED 03/02/24 05/26/24 Insulin Glulisine [Apidra] 31 unit SQ DIRECTED 03/02/24 05/26/24 Previous Rx's Medication Instructions Recorded Metoclopramide [Reglan] 10 mg PO ACHS PRN #10 tab 06/27/24 Allergies Allergy/AdvReac Type Severity Reaction Status Date / Time latex Allergy Rash/Hives Verified 06/27/24 19:39 Review of Systems ROS Statement: Those systems with pertinent positive or pertinent negative responses have been documented in the HPI. ROS Other: All systems not noted in ROS Statement are negative. Past Medical History Past Medical History: Asthma, Diabetes Mellitus, Hyperlipidemia, Hypertension, Osteoarthritis (OA) Additional Past Medical History / Comment(s): IDDM type I, diabetic gastroparesis, neuropathy bilateral hands/fingers, migraines, arthrtitis fingers/knees, past R hand and L femur fractures. Previous DKA History of Any Multi-Drug Resistant Organisms: MRSA Date of last positivie culture/infection: 04/26/2014 MDRO Source:: Face Past Surgical History: Ear Surgery, Orthopedic Surgery Additional Past Surgical History / Comment(s): R hand surgery d/t fracture- pinned and pins since removed, L leg femur fracture with pin that eventually was removed, bilateral myringotomy with tubes/ear drum repairs.; Left pinky removal Past Anesthesia/Blood Transfusion Reactions: No Reported Reaction Past Psychological History: Anxiety, Bipolar, Depression Smoking Status: Current every day smoker Past Alcohol Use History: None Reported Past Drug Use History: Marijuana - Past Family History Father Family Medical History: Hyperlipidemia, Hypertension, Myocardial Infarction (CO) Mother Family Medical History: COPD Additional Family Medical History / Comment(s): home O2, Brother(s) Family Medical History: No Reported History General Exam Limitations: no limitations General appearance: alert, in no apparent distress Head exam: Present: atraumatic, normocephalic, normal inspection Eye exam: Present: normal appearance, EOMI Neck exam: Present: normal inspection. Absent: meningismus Respiratory exam: Present: normal lung sounds bilaterally. Absent: respiratory distress, wheezes, rales, rhonchi, stridor Cardiovascular Exam: Present: normal rhythm, tachycardia, normal heart sounds. Absent: systolic murmur, diastolic murmur, rubs, gallop, clicks GI/Abdominal exam: Absent: distended Neurological exam: Present: alert, oriented X3 Psychiatric exam: Present: normal affect, normal mood Skin exam: Present: warm, dry Course Vital Signs 06/27/24 06/27/24 06/27/24 19:35 20:02 21:00 Temperature 98.6 F 99.4 F Pulse Rate 116 H 84 96 Respiratory 20 20 18 Rate Blood Pressure 176/110 197/107 174/90 O2 Sat by Pulse 99 98 100 Oximetry 06/27/24 22:45 Temperature 98.9 F Pulse Rate 84 Respiratory 18 Rate Blood Pressure 127/99 O2 Sat by Pulse 98 Oximetry Medical Decision Making - Medical Decision Making Was pt. sent in by a medical professional or institution (, PA, POLE CLASSIFIER, urgent care, hospital, or long-term...) When possible be specific @ -No Did you speak to anyone other than the patient for history (EMS, parent, family, police, friend...)? What history was obtained from this source @ -No Did you review nursing and triage notes (agree or disagree)? Why? @ -I reviewed and agree with nursing and triage notes Were old charts reviewed (outside hosp., previous admission, EMS record, old EKG, old radiological studies, urgent care reports/EKG's, long-term records)? Report findings @ -No old charts were reviewed Differential Diagnosis (chest pain, altered mental status, abdominal pain women, abdominal pain men, vaginal bleeding, weakness, fever, dyspnea, syncope, headache, dizziness, GI bleed, back pain, seizure, CVA, palpatations, mental health, musculoskeletal)? @ -Differential includes gastroparesis, DKA, gastroenteritis, bowel obstruction, appendicitis, cholecystitis, not an all-inclusive list EKG interpreted by me (3pts min.). @ -As above X-rays interpreted by me (1pt min.). @ -None done CT interpreted by me (1pt min.). @ -None done U/S interpreted by me (1pt. min.). @ -None done What testing was considered but not performed or refused? (CT, X-rays, U/S, labs)? Why? @ -None What meds were considered but not given or refused? Why? @ -None Did you discuss the management of the patient with other professionals (professionals i.e. , PA, POLE CLASSIFIER, lab, RT, psych nurse, social work lecturer, change director, teacher, community service patrol officer, correctional casework specialist)? Give summary @ -No Was smoking cessation discussed for >3mins.? @ -No Was critical care preformed (if so, how long)? @ -No Were there social determinants of health that impacted care today? How? (Homelessness, low income, unemployed, alcoholism, drug addiction, transpo rtation, low edu. Level, literacy, decrease access to med. care, assisted, rehab)? @ -No Was there de-escalation of care discussed even if they declined (Discuss DNR or withdrawal of care, Hospice)? DNR status @ -No What co-morbidities impacted this encounter? (DM, HTN, Smoking, COPD, CAD, Cancer, CVA, ARF, Chemo, Hep., AIDS, mental health diagnosis, sleep apnea, morbid obesity)? @ -None Was patient admitted / discharged? Hospital course, mention meds given and route, prescriptions, significant lab abnormalities, going to OR and other pertinent info. @ -34-year-old male presenting with chief complaint of nausea and vomiting. Patient has been seen here on prior occasions for similar issues. History and physical examination are conducted. Patient is having no abdominal pain or any other symptoms. WBC 15.4, may be reactive. Initial potassium was hemolyzed, repeat is WNL. Lactic acid is 2.5 and patient has 3+ ketones in the urine, likely due to dehydration. Mildly elevated anion gap of 16 likely due to lactic acidosis. Negative acetone. Carbon dioxide is WNL. He is not in DKA. Patient is negative for influenza, RSV, COVID. On reassessment the patient is resting comfortably showing no acute signs of distress. He states he is feeling much better. Feels comfortable discharge home. Follow-up with PCP. Report back to ER with any new or worsening symptoms. Discussed return parameters and answered all questions. Patient conveyed verbal understanding and agreed to the plan. I discussed this case in detail with my attending Dr. Lainez Undiagnosed new problem with uncertain prognosis? @ -No Drug Therapy requiring intensive monitoring for toxicity (Heparin, Nitro, Ins ulin, Cardizem)? @ -No Were any procedures done? @ -No Diagnosis/symptom? @ -Dehydration, nausea and vomiting Acute, or Chronic, or Acute on Chronic? @ -Acute Uncomplicated (without systemic symptoms) or Complicated (systemic symptoms)? @ -Uncomplicated Side effects of treatment? @ -No Exacerbation, Progression, or Severe Exacerbation? @ -No Poses a threat to life or bodily function? How? (Chest pain, USA, CO, pneumonia, PE, COPD, DKA, ARF, appy, cholecystitis, CVA, Diverticulitis, Homicidal, Suicidal, threat to staff... and all critical care pts) @ -Low likelihood - Lab Data Result diagrams: 06/27/24 19:51 06/27/24 21:04 Lab Results 06/27/24 06/27/24 06/27/24 Range/Units 19:38 19:51 19:51 WBC 15.4 H (3.8-10.6) k/uL RBC 5.39 (4.30-5.90) m/uL Hgb 15.9 (13.0-17.5) gm/dL Hct 48.8 (39.0-53.0) % MCV 90.5 (80.0-100.0) fL MCH 29.4 (25.0-35.0) pg MCHC 32.5 (31.0-37.0) g/dL RDW 14.1 (11.5-15.5) % Plt Count 447 (150-450) k/uL MPV 8.6 Neutrophils % 76 % Lymphocytes % 19 % Monocytes % 3 % Eosinophils % 0 % Basophils % 0 % Neutrophils # 11.7 H (1.3-7.7) k/uL Lymphocytes # 2.9 (1.0-4.8) k/uL Monocytes # 0.5 (0-1.0) k/uL Eosinophils # 0.1 (0-0.7) k/uL Basophils # 0.0 (0-0.2) k/uL Sodium 139 (137-145) mmol/L Potassium 5.6 H (3.5-5.1) mmol/L Chloride 100 (98-107) mmol/L Carbon Dioxide 23 (22-30) mmol/L Anion Gap 16 mmol/L BUN 24 H (9-20) mg/dL Creatinine 0.73 (0.66-1.25) mg/dL Est GFR (CKD-EPI)AfAm >90 (>60 ml/min/1.73 sqM) Est GFR (CKD-EPI)NonAf >90 (>60 ml/min/1.73 sqM) Glucose 279 H (74-99) mg/dL POC Glucose (mg/dL) 253 H (70-110) mg/dL POC Glu Naphthalene Still Operator ID Memo [place] Lactic Ac Sepsis Rflx Plasma Lactic Acid Neymar (0.7-2.0) mmol/L Calcium 10.0 (8.4-10.2) mg/dL Total Bilirubin 1.2 (0.2-1.3) mg/dL AST 35 (17-59) U/L ALT 19 (4-49) U/L Alkaline Phosphatase 125 (38-126) U/L Total Protein 8.1 (6.3-8.2) g/dL Albumin 4.9 (3.5-5.0) g/dL Amylase 83 (30-110) U/L Lipase 22 L (23-300) U/L Urine Color Urine Appearance (Clear) Urine pH (5.0-8.0) Ur Specific [place] (1.001-1.035) Urine Protein (Negative) Urine Glucose (UA) (Negative) Urine Ketones (Negative) Urine Blood (Negative) Urine Nitrite (Negative) Urine Bilirubin (Negative) Urine Urobilinogen (<2.0) mg/dL Ur Leukocyte Esterase (Negative) Urine RBC (0-5) /hpf Urine WBC (0-5) /hpf Urine Mucus (None) /hpf Acetone, Qual (Negative) Influenza Type A (PCR) (Not Detectd) Influenza Type B (PCR) (Not Detectd) RSV (PCR) (Not Detectd) SARS-CoV-2 (PCR) (Not Detectd) 06/27/24 06/27/24 06/27/24 Range/Units 19:51 19:51 20:28 WBC (3.8-10.6) k/uL RBC (4.30-5.90) m/uL Hgb (13.0-17.5) gm/dL Hct (39.0-53.0) % MCV (80.0-100.0) fL MCH (25.0-35.0) pg MCHC (31.0-37.0) g/dL RDW (11.5-15.5) % Plt Count (150-450) k/uL MPV Neutrophils % % Lymphocytes % % Monocytes % % Eosinophils % % Basophils % % Neutrophils # (1.3-7.7) k/uL Lymphocytes # (1.0-4.8) k/uL Monocytes # (0-1.0) k/uL Eosinophils # (0-0.7) k/uL Basophils # (0-0.2) k/uL Sodium (137-145) mmol/L Potassium (3.5-5.1) mmol/L Chloride (98-107) mmol/L Carbon Dioxide (22-30) mmol/L Anion Gap mmol/L BUN (9-20) mg/dL Creatinine (0.66-1.25) mg/dL Est GFR (CKD-EPI)AfAm (>60 ml/min/1.73 sqM) Est GFR (CKD-EPI)NonAf (>60 ml/min/1.73 sqM) Glucose (74-99) mg/dL POC Glucose (mg/dL) (70-110) mg/dL POC Glu Naphthalene Still Operator ID Lactic Ac Sepsis Rflx Y Plasma Lactic Acid Neymar 2.5 H* (0.7-2.0) mmol/L Calcium (8.4-10.2) mg/dL Total Bilirubin (0.2-1.3) mg/dL AST (17-59) U/L ALT (4-49) U/L Alkaline Phosphatase (38-126) U/L Total Protein (6.3-8.2) g/dL Albumin (3.5-5.0) g/dL Amylase (30-110) U/L Lipase (23-300) U/L Urine Color Urine Appearance (Clear) Urine pH (5.0-8.0) Ur Specific [place] (1.001-1.035) Urine Protein (Negative) Urine Glucose (UA) (Negative) Urine Ketones (Negative) Urine Blood (Negative) Urine Nitrite (Negative) Urine Bilirubin (Negative) Urine Urobilinogen (<2.0) mg/dL Ur Leukocyte Esterase (Negative) Urine RBC (0-5) /hpf Urine WBC (0-5) /hpf Urine Mucus (None) /hpf Acetone, Qual (Negative) Influenza Type A (PCR) Not Detected (Not Detectd) Influenza Type B (PCR) Not Detected (Not Detectd) RSV (PCR) Not Detected (Not Detectd) SARS-CoV-2 (PCR) Not Detected (Not Detectd) 06/27/24 06/27/24 06/27/24 Range/Units 21:04 21:04 21:40 WBC (3.8-10.6) k/uL RBC (4.30-5.90) m/uL Hgb (13.0-17.5) gm/dL Hct (39.0-53.0) % MCV (80.0-100.0) fL MCH (25.0-35.0) pg MCHC (31.0-37.0) g/dL RDW (11.5-15.5) % Plt Count (150-450) k/uL MPV Neutrophils % % Lymphocytes % % Monocytes % % Eosinophils % % Basophils % % Neutrophils # (1.3-7.7) k/uL Lymphocytes # (1.0-4.8) k/uL Monocytes # (0-1.0) k/uL Eosinophils # (0-0.7) k/uL Basophils # (0-0.2) k/uL Sodium (137-145) mmol/L Potassium 4.9 (3.5-5.1) mmol/L Chloride (98-107) mmol/L Carbon Dioxide (22-30) mmol/L Anion Gap mmol/L BUN (9-20) mg/dL Creatinine (0.66-1.25) mg/dL Est GFR (CKD-EPI)AfAm (>60 ml/min/1.73 sqM) Est GFR (CKD-EPI)NonAf (>60 ml/min/1.73 sqM) Glucose (74-99) mg/dL POC Glucose (mg/dL) (70-110) mg/dL POC Glu Naphthalene Still Operator ID Lactic Ac Sepsis Rflx Plasma Lactic Acid [place] (0.7-2.0) mmol/L Calcium (8.4-10.2) mg/dL Total Bilirubin (0.2-1.3) mg/dL AST (17-59) U/L ALT (4-49) U/L Alkaline Phosphatase (38-126) U/L Total Protein (6.3-8.2) g/dL Albumin (3.5-5.0) g/dL Amylase (30-110) U/L Lipase (23-300) U/L Urine Color Yellow Urine Appearance Clear (Clear) Urine pH 7.5 (5.0-8.0) Ur Specific [place] 1.028 (1.001-1.035) Urine Protein 1+ H (Negative) Urine Glucose (UA) 4+ H (Negative) Urine Ketones 3+ H (Negative) Urine Blood Negative (Negative) Urine Nitrite Negative (Negative) Urine Bilirubin Negative (Negative) Urine Urobilinogen <2.0 (<2.0) mg/dL Ur Leukocyte Esterase Negative (Negative) Urine RBC 2 (0-5) /hpf Urine WBC <1 (0-5) /hpf Urine Mucus Occasional H (None) /hpf Acetone, Qual Negative (Negative) Influenza Type A (PCR) (Not Detectd) Influenza Type B (PCR) (Not Detectd) RSV (PCR) (Not Detectd) SARS-CoV-2 (PCR) (Not Detectd) Disposition Clinical Impression: Dehydration Disposition: HOME SELF-CARE Condition: Good Instructions (If sedation given, give patient instructions): Acute Nausea and Vomiting (ED) Additional Instructions: Follow-up with your PCP. Report back to ER with any new or worsening symptoms. Prescriptions: Metoclopramide [Reglan] 10 mg PO ACHS PRN #10 tab PRN Reason: Nausea Is patient prescribed a controlled substance at d/c from ED?: No Referrals: Supriya Edward MD [Primary Care Provider] - 1-2 days Time of Disposition: 22:25
[2024-06-27] MEDS: ONDANSETRON 4 MG/2 ML VIAL IVP STA (19:54)
[2024-06-27] MEDS: FAMOTIDINE 20 MG/2 ML VIAL IV STA (19:58)
[2024-06-27] MEDS: SODIUM CHLORIDE 0.9% 1,000 ML IV STA (20:01)
[2024-06-27 20:04] LABS: Basophils % (A) 0 %; Eosinophils # (A) 0.1 k/uL (0-0.7); Eosinophils % (A) 0 %; HCT 48.8 % (39.0-53.0); HGB 15.9 gm/dL (13.0-17.5); Lymphocytes # (A) 2.9 k/uL (1.0-4.8); Lymphocytes % (A) 19 %; MCH 29.4 pg (25.0-35.0); MCHC 32.5 g/dL (31.0-37.0); MCV 90.5 fL (80.0-100.0); Mean Platelet Volume 8.6; Monocytes # (A) 0.5 k/uL (0-1.0); Monocytes % (A) 3 %; Neutrophils # (A) 11.7 k/uL (1.3-7.7); Neutrophils % (A) 76 %; Platelet Count 447 k/uL (150-450); RBC 5.39 m/uL (4.30-5.90); RDW 14.1 % (11.5-15.5); WBC 15.4 k/uL (3.8-10.6)
[2024-06-27 20:14] LABS: African American GFR (CKD) >90 (>60 ml/min/1.73 sqM); Albumin 4.9 g/dL (3.5-5.0); Amylase 83 U/L (30-110); Anion Gap 16 mmol/L; Blood Urea Nitrogen 24 mg/dL (9-20); Carbon Dioxide 23 mmol/L (22-30); Chloride 100 mmol/L (98-107); Glucose 279 mg/dL (74-99); Lipase 22 U/L (23-300); Non-African American GFR(CKD) >90 (>60 ml/min/1.73 sqM); Sodium 139 mmol/L (137-145); Total Bilirubin 1.2 mg/dL (0.2-1.3); Total Protein 8.1 g/dL (6.3-8.2)
[2024-06-27 20:27] LABS: ALT 19 U/L (4-49); AST 35 U/L (17-59); Alkaline Phosphatase 125 U/L (38-126); Potassium 5.6 mmol/L (3.5-5.1)
[2024-06-27 20:40] LABS: Influenza A Not Detected (Not Detectd); Influenza B Not Detected (Not Detectd); RSV Not Detected (Not Detectd)
[2024-06-27] MEDS: SODIUM CHLORIDE 0.9% 1,000 ML IV ONE (21:08)
[2024-06-27 21:24] LABS: Appearance,Urine Clear (Clear); Bilirubin,Urine Negative (Negative); Blood,Urine Negative (Negative); Color,Urine Yellow; Glucose,Urine (UA) 4+ (Negative); Leukocyte Esterase,Urine Negative (Negative); Mucus,Urine Occasional /hpf; Nitrite,Urine Negative (Negative); PH, Urine 7.5 (5.0-8.0); Protein,Urine 1+ (Negative); RBC,Urine 2 /hpf (0-5); Specific Gravity,Urine 1.028 (1.001-1.035); Urobilinogen,Urine <2.0 mg/dL (<2.0); WBC,Urine <1 /hpf (0-5)
[2024-06-27] MEDS: METOCLOPRAMIDE 5 MG/ML 2 ML VIAL IVP STA (21:33)
[2024-06-27 21:38] LABS: Ketones,Urine 3+ (Negative)
[2024-06-27 21:59] VITALS: RESP 18
[2024-06-27 23:05] VITALS: BP 127/99; PULSE 84; TEMP 98.9
== END 2024-06-27 22:50 | disposition home or self-care (01) ==
LOC: EC 19:24
DX: E86.0 Dehydration (principal); R11.2 Nausea with vomiting, unspecified; R00.0 Tachycardia, unspecified; R79.89 Other specified abnormal findings of blood chemistry; F17.200 Nicotine dependence, unspecified, uncomplicated; Z91.040 Latex allergy status
CPT/HCPCS: 36415; 80053; 82150; 82009; 83605; 83690; 84132; 85025; 81001; 87636; 99284; 96374; 96375 ×2; 96361 ×2; J2765; J2405; J3490

== ENCOUNTER 2024-06-29 14:18 | Inpatient (IN) | payer OTHER, MEDICARE ==
[2024-06-29 14:41] LABS: Glucose,Whole Blood 370 mg/dL (70-110)
[2024-06-29] MEDS: SODIUM CHLORIDE 0.9% 1,000 ML IV ONE ×2 (15:07→17:11)
[2024-06-29] MEDS: HYDROmorphone 0.5 MG/0.5 ML SYRINGE IVP STA (15:07)
[2024-06-29] MEDS: ONDANSETRON 4 MG/2 ML VIAL IVP STA (15:07)
[2024-06-29 15:17] LABS: Basophils # (A) 0.1 k/uL (0-0.2); Basophils % (A) 0 %; Eosinophils % (A) 0 %; HCT 51.8 % (39.0-53.0); HGB 16.4 gm/dL (13.0-17.5); Hypochromasia Slight; Lymphocytes # (A) 2.4 k/uL (1.0-4.8); Lymphocytes % (A) 16 %; MCH 29.7 pg (25.0-35.0); MCHC 31.7 g/dL (31.0-37.0); MCV 93.9 fL (80.0-100.0); Mean Platelet Volume 8.3; Monocytes # (A) 0.5 k/uL (0-1.0); Monocytes % (A) 4 %; Neutrophils # (A) 11.6 k/uL (1.3-7.7); Neutrophils % (A) 78 %; Platelet Count 460 k/uL (150-450); RBC 5.52 m/uL (4.30-5.90); RDW 14.4 % (11.5-15.5); WBC 14.9 k/uL (3.8-10.6)
[2024-06-29 15:29] LABS: Appearance,Urine Clear (Clear); Bilirubin,Urine Negative (Negative); Blood,Urine Negative (Negative); Color,Urine Colorless; Glucose,Urine (UA) 4+ (Negative); Hyaline Casts,Urine 1 /lpf (0-2); Leukocyte Esterase,Urine Negative (Negative); Mucus,Urine Rare /hpf; Nitrite,Urine Negative (Negative); PH, Urine 5.5 (5.0-8.0); Protein,Urine 1+ (Negative); RBC,Urine 1 /hpf (0-5); Urobilinogen,Urine <2.0 mg/dL (<2.0); WBC,Urine <1 /hpf (0-5)
[2024-06-29 15:34] LABS: Ketones,Urine 4+ (Negative)
--- NOTE | 2024-06-29 15:44 | ED ---
General Adult HPI - General Chief complaint: Nausea/Vomiting/Diarrhea Stated complaint: vomiting Time Seen by Provider: 06/29/24 14:51 Source: patient, family, RN notes reviewed, old records reviewed Mode of arrival: wheelchair Limitations: no limitations - History of Present Illness Initial comments: 34-year-old male presenting for evaluation of nausea vomiting. Patient's symptoms have been present for the past 3 days. Patient has history of type 1 diabetes. He also with history of gastroparesis. He denies significant abdominal pain. Denies fever. States he has been taking his insulin. - Related Data Home Medications Medication Instructions Recorded Confirmed Insulin Aspart [NovoLOG] 10 units SQ DIRECTED 03/02/24 05/26/24 Insulin Glulisine [Apidra] 31 unit SQ DIRECTED 03/02/24 05/26/24 Previous Rx's Medication Instructions Recorded Metoclopramide [Reglan] 10 mg PO ACHS PRN #10 tab 06/27/24 Allergies Allergy/AdvReac Type Severity Reaction Status Date / Time latex Allergy Rash/Hives Verified 06/29/24 14:38 Review of Systems ROS Statement: Those systems with pertinent positive or pertinent negative responses have been documented in the HPI. ROS Other: All systems not noted in ROS Statement are negative. Past Medical History Past Medical History: Asthma, Diabetes Mellitus, Hyperlipidemia, Hypertension, Osteoarthritis (OA) Additional Past Medical History / Comment(s): IDDM type I, diabetic gastroparesis, neuropathy bilateral hands/fingers, migraines, arthrtitis fingers/knees, past R hand and L femur fractures. Previous DKA History of Any Multi-Drug Resistant Organisms: MRSA Date of last positivie culture/infection: 04/26/2014 MDRO Source:: Face Past Surgical History: Ear Surgery, Orthopedic Surgery Additional Past Surgical History / Comment(s): R hand surgery d/t fracture- pinned and pins since removed, L leg femur fracture with pin that eventually was removed, bilateral myringotomy with tubes/ear drum repairs.; Left pinky removal Past Anesthesia/Blood Transfusion Reactions: No Reported Reaction Past Psychological History: Anxiety, Bipolar, Depression Smoking Status: Current every day smoker Past Alcohol Use History: None Reported Past Drug Use History: Marijuana - Past Family History Father Family Medical History: Hyperlipidemia, Hypertension, Myocardial Infarction ([place]) Mother Family Medical History: COPD Additional Family Medical History / Comment(s): home O2, Brother(s) Family Medical History: No Reported History General Exam Limitations: no limitations General appearance: alert, in no apparent distress Head exam: Present: atraumatic, normocephalic Eye exam: Present: normal appearance, PERRL ENT exam: Present: mucous membranes dry Neck exam: Present: normal inspection. Absent: tenderness, meningismus Respiratory exam: Present: normal lung sounds bilaterally. Absent: respiratory distress, wheezes Cardiovascular Exam: Present: normal rhythm, tachycardia GI/Abdominal exam: Present: soft. Absent: distended, tenderness, guarding Neurological exam: Present: alert, oriented X3, CN II-XII intact. Absent: motor sensory deficit Skin exam: Present: warm, dry, intact Course Vital Signs 06/29/24 06/29/24 06/29/24 14:38 14:42 15:48 Temperature 98.1 F Pulse Rate 130 H 118 H 110 H Respiratory 20 20 20 Rate Blood Pressure 160/105 140/110 100/60 O2 Sat by Pulse 98 98 98 Oximetry 06/29/24 15:52 Temperature Pulse Rate 110 H Respiratory 20 Rate Blood Pressure 134/68 O2 Sat by Pulse 98 Oximetry Medical Decision Making - Medical Decision Making Was pt. sent in by a medical professional or institution (, PA, CASING TESTER, urgent care, hospital, or prison...) When possible be specific @ -No Did you speak to anyone other than the patient for history (EMS, parent, family, police, friend...)? What history was obtained from this source @ -No Did you review nursing and triage notes (agree or disagree)? Why? @ -I reviewed and agree with nursing and triage notes Were old charts reviewed (outside hosp., previous admission, EMS record, old EKG, old radiological studies, urgent care reports/EKG's, prison records)? Report findings @ -No old charts were reviewed Differential Diagnosis: DKA, cyclic vomiting, gastroenteritis, bowel obstruction EKG interpreted by me (3pts min.). @Sinus tachycardia rate of 118, NJ interval 115, QRS duration 76, QTc [address] segment elevation. X-rays interpreted by me (1pt min.). @ -None done CT interpreted by me (1pt min.). @ -None done U/S interpreted by me (1pt. min.). @ -None done What testing was considered but not performed or refused? (CT, X-rays, U/S, labs)? Why? @ -None What meds were considered but not given or refused? Why? @ -None Did you discuss the management of the patient with other professionals (professionals i.e. , PA, CASING TESTER, lab, RT, psych nurse, hospice social worker, dental chair assembler, teacher, fire control officer, case technician)? Give summary @ -No Was smoking cessation discussed for >3mins.? @ -No Was critical care preformed (if so, how long)? @ -DKA, critical care time 35 minutes Were there social determinants of health that impacted care today? How? (Ahmet elessness, low income, unemployed, alcoholism, drug addiction, transportation, low edu. Level, literacy, decrease access to med. care, intermediate, rehab)? @ -No Was there de-escalation of care discussed even if they declined (Discuss DNR or withdrawal of care, Hospice)? DNR status @ -No What co-morbidities impacted this encounter? (DM, HTN, Smoking, COPD, CAD, Cancer, CVA, ARF, Chemo, Hep., AIDS, mental health diagnosis, sleep apnea, morbid obesity)? @ -[Type 1 diabetes Was patient admitted / discharged? Hospital course, mention meds given and route, prescriptions, significant lab abnormalities, going to OR and other pertinent info. @ -34-year-old male with type 1 diabetes presenting with nausea vomiting, suspicion for DKA. Patient given 2 L of normal saline bolus. Laboratory studies are obtained. He has a white blood cell count 14.9 I suspect this is reactive. He has a pH of 7.2 CO2 16 with an anion gap of 26. Initial blood sugar is 445. He is acetone positive with 4+ ketones in the urine. He started on IV insulin continued on IV fluids. He is admitted for management of DKA. Undiagnosed new problem with uncertain prognosis? @ -[No Drug Therapy requiring intensive monitoring for toxicity (Heparin, Nitro, Insulin, Cardizem)? @ -No Were any procedures done? @ -No Diagnosis/symptom? @ -DKA Acute, or Chronic, or Acute on Chronic? @Acute Uncomplicated (without systemic symptoms) or Complicated (systemic symptoms)? @ -Complicated Side effects of treatment? @ -No Exacerbation, Progression, or Severe Exacerbation? @ -No Poses a threat to life or bodily function? How? (Chest pain, [place], [place], pneumonia, PE, COPD, DKA, ARF, appy, cholecystitis, CVA, Diverticulitis, Homicidal, Suicidal, threat to staff... and all critical care pts) @ -Yes, DKA] - Lab Data Result diagrams: 06/29/24 14:51 06/29/24 15:30 Lab Results 06/29/24 06/29/24 06/29/24 Range/Units 14:38 14:51 14:51 WBC 14.9 H (3.8-10.6) k/uL RBC 5.52 (4.30-5.90) m/uL Hgb 16.4 (13.0-17.5) gm/dL Hct 51.8 (39.0-53.0) % MCV 93.9 (80.0-100.0) fL MCH 29.7 (25.0-35.0) pg MCHC 31.7 (31.0-37.0) g/dL RDW 14.4 (11.5-15.5) % Plt Count 460 H (150-450) k/uL MPV 8.3 Neutrophils % 78 % Lymphocytes % 16 % Monocytes % 4 % Eosinophils % 0 % Basophils % 0 % Neutrophils # 11.6 H (1.3-7.7) k/uL Lymphocytes # 2.4 (1.0-4.8) k/uL Monocytes # 0.5 (0-1.0) k/uL Eosinophils # 0.0 (0-0.7) k/uL Basophils # 0.1 (0-0.2) k/uL Hypochromasia Slight PT (10.0-12.5) sec INR (<1.2) APTT (22.0-30.0) sec VBG pH (7.31-7.41) VBG pCO2 (37-51) mmHg VBG HCO3 (24-28) mmol/L Sodium (137-145) mmol/L Potassium (3.5-5.1) mmol/L Chloride (98-107) mmol/L Carbon Dioxide (22-30) mmol/L Anion Gap mmol/L BUN (9-20) mg/dL Creatinine (0.66-1.25) mg/dL Est GFR (CKD-EPI)AfAm (>60 ml/min/1.73 sqM) Est GFR (CKD-EPI)NonAf (>60 ml/min/1.73 sqM) Glucose (74-99) mg/dL POC Glucose (mg/dL) 370 H (70-110) mg/dL POC Glu [employer] Supervisor ID Pranay Hernandez Plasma Lactic Acid Neymar (0.7-2.0) mmol/L Calcium (8.4-10.2) mg/dL Magnesium (1.6-2.3) mg/dL Total Bilirubin (0.2-1.3) mg/dL AST (17-59) U/L ALT (4-49) U/L Alkaline Phosphatase (38-126) U/L Total Protein (6.3-8.2) g/dL Albumin (3.5-5.0) g/dL Urine Color Colorless Urine Appearance Clear (Clear) Urine pH 5.5 (5.0-8.0) Ur Specific [place] 1.030 (1.001-1.035) Urine Protein 1+ H (Negative) Urine Glucose (UA) 4+ H (Negative) Urine Ketones 4+ H (Negative) Urine Blood Negative (Negative) Urine Nitrite Negative (Negative) Urine Bilirubin Negative (Negative) Urine Urobilinogen <2.0 (<2.0) mg/dL Ur Leukocyte Esterase Negative (Negative) Urine RBC 1 (0-5) /hpf Urine WBC <1 (0-5) /hpf Hyaline Casts 1 (0-2) /lpf Urine Mucus Rare H (None) /hpf Acetone, Qual (Negative) 06/29/24 06/29/24 06/29/24 Range/Units 14:51 15:30 15:30 WBC (3.8-10.6) k/uL RBC (4.30-5.90) m/uL Hgb (13.0-17.5) gm/dL Hct (39.0-53.0) % MCV (80.0-100.0) fL MCH (25.0-35.0) pg MCHC (31.0-37.0) g/dL RDW (11.5-15.5) % Plt Count (150-450) k/uL MPV Neutrophils % % Lymphocytes % % Monocytes % % Eosinophils % % Basophils % % Neutrophils # (1.3-7.7) k/uL Lymphocytes # (1.0-4.8) k/uL Monocytes # (0-1.0) k/uL Eosinophils # (0-0.7) k/uL Basophils # (0-0.2) k/uL Hypochromasia PT (10.0-12.5) sec INR (<1.2) APTT (22.0-30.0) sec VBG pH 7.20 L* (7.31-7.41) VBG pCO2 45 (37-51) mmHg VBG HCO3 18 L (24-28) mmol/L Sodium 142 (137-145) mmol/L Potassium 5.0 (3.5-5.1) mmol/L Chloride 100 (98-107) mmol/L Carbon Dioxide 16 L (22-30) mmol/L Anion Gap 26 mmol/L BUN 35 H (9-20) mg/dL Creatinine 0.90 (0.66-1.25) mg/dL Est GFR (CKD-EPI)AfAm >90 (>60 ml/min/1.73 sqM) Est GFR (CKD-EPI)NonAf >90 (>60 ml/min/1.73 sqM) Glucose 445 H (74-99) mg/dL POC Glucose (mg/dL) (70-110) mg/dL POC Glu [employer] Power[employer] Supervisor ID Plasma Lactic Acid Neymar 1.9 (0.7-2.0) mmol/L Calcium 10.0 (8.4-10.2) mg/dL Magnesium 1.7 (1.6-2.3) mg/dL Total Bilirubin 0.8 (0.2-1.3) mg/dL AST 15 L (17-59) U/L ALT 15 (4-49) U/L Alkaline Phosphatase 163 H (38-126) U/L Total Protein 7.3 (6.3-8.2) g/dL Albumin 4.7 (3.5-5.0) g/dL Urine Color Urine Appearance (Clear) Urine pH (5.0-8.0) Ur Specific [place] (1.001-1.035) Urine Protein (Negative) Urine Glucose (UA) (Negative) Urine Ketones (Negative) Urine Blood (Negative) Urine Nitrite (Negative) Urine Bilirubin (Negative) Urine Urobilinogen (<2.0) mg/dL Ur Leukocyte Esterase (Negative) Urine RBC (0-5) /hpf Urine WBC (0-5) /hpf Hyaline Casts (0-2) /lpf Urine Mucus (None) /hpf Acetone, Qual Positive (Negative) 06/29/24 Range/Units 15:30 WBC (3.8-10.6) k/uL RBC (4.30-5.90) m/uL Hgb (13.0-17.5) gm/dL Hct (39.0-53.0) % MCV (80.0-100.0) fL MCH (25.0-35.0) pg MCHC (31.0-37.0) g/dL RDW (11.5-15.5) % Plt Count (150-450) k/uL MPV Neutrophils % % Lymphocytes % % Monocytes % % Eosinophils % % Basophils % % Neutrophils # (1.3-7.7) k/uL Lymphocytes # (1.0-4.8) k/uL Monocytes # (0-1.0) k/uL Eosinophils # (0-0.7) k/uL Basophils # (0-0.2) k/uL Hypochromasia PT 10.7 (10.0-12.5) sec INR 1.0 (<1.2) APTT 22.8 (22.0-30.0) sec VBG pH (7.31-7.41) VBG pCO2 (37-51) mmHg VBG HCO3 (24-28) mmol/L Sodium (137-145) mmol/L Potassium (3.5-5.1) mmol/L Chloride (98-107) mmol/L Carbon Dioxide (22-30) mmol/L Anion Gap mmol/L BUN (9-20) mg/dL Creatinine (0.66-1.25) mg/dL Est GFR (CKD-EPI)AfAm (>60 ml/min/1.73 sqM) Est GFR (CKD-EPI)NonAf (>60 ml/min/1.73 sqM) Glucose (74-99) mg/dL POC Glucose (mg/dL) (70-110) mg/dL POC Glu Steam Power[employer] Supervisor ID Plasma Lactic Acid Neymar (0.7-2.0) mmol/L Calcium (8.4-10.2) mg/dL Magnesium (1.6-2.3) mg/dL Total Bilirubin (0.2-1.3) mg/dL AST (17-59) U/L ALT (4-49) U/L Alkaline Phosphatase (38-126) U/L Total Protein (6.3-8.2) g/dL Albumin (3.5-5.0) g/dL Urine Color Urine Appearance (Clear) Urine pH (5.0-8.0) Ur Specific [place] (1.001-1.035) Urine Protein (Negative) Urine Glucose (UA) (Negative) Urine Ketones (Negative) Urine Blood (Negative) Urine Nitrite (Negative) Urine Bilirubin (Negative) Urine Urobilinogen (<2.0) mg/dL Ur Leukocyte Esterase (Negative) Urine RBC (0-5) /hpf Urine WBC (0-5) /hpf Hyaline Casts (0-2) /lpf Urine Mucus (None) /hpf Acetone, Qual (Negative) Critical Care Time Critical Care Time: Yes Total Critical Care Time: 35 Disposition Clinical Impression: DKA, type 1, Dehydration Disposition: ADMITTED IP TO THIS [facility] Condition: Stable Is patient prescribed a controlled substance at d/c from ED?: No Referrals: Supriya Edward MD [Primary Care Provider] - 1-2 days Time of Disposition: 17:15
[2024-06-29 15:45] LABS: VBG PH 7.2 (7.31-7.41)
[2024-06-29 16:31] LABS: ALT 15 U/L (4-49); AST 15 U/L (17-59); African American GFR (CKD) >90 (>60 ml/min/1.73 sqM); Albumin 4.7 g/dL (3.5-5.0); Alkaline Phosphatase 163 U/L (38-126); Anion Gap 26 mmol/L; Blood Urea Nitrogen 35 mg/dL (9-20); Carbon Dioxide 16 mmol/L (22-30); Chloride 100 mmol/L (98-107); Glucose 445 mg/dL (74-99); Magnesium 1.7 mg/dL (1.6-2.3); Non-African American GFR(CKD) >90 (>60 ml/min/1.73 sqM); Sodium 142 mmol/L (137-145); Total Bilirubin 0.8 mg/dL (0.2-1.3); Total Protein 7.3 g/dL (6.3-8.2)
[2024-06-29 16:38] LABS: Partial Thromboplastin Time 22.8 sec (22.0-30.0); Prothrombin Time 10.7 sec (10.0-12.5)
[2024-06-29 17:18] LABS: Glucose,Whole Blood 408 mg/dL (70-110)
[2024-06-29] MEDS: SODIUM CHLORIDE 0.9% 1,000 ML IV SCH (17:38)
[2024-06-29] MEDS: INSULIN REGULAR 100 UNIT in SODIUM CHLORIDE 0.9% 100 ML IV SCH (17:40)
[2024-06-29] MEDS: METOCLOPRAMIDE 5 MG/ML 2 ML VIAL IVP STA (18:01)
[2024-06-29 18:27] LABS: Glucose,Whole Blood 353 mg/dL (70-110)
[2024-06-29 19:03] LABS: Glucose,Whole Blood 275 mg/dL (70-110)
[2024-06-29] MEDS: D5-0.45% NACL WITH KCL 20MEQ/L 1,000 ML IV SCH (19:08)
[2024-06-29 20:06] LABS: Glucose,Whole Blood 266 mg/dL (70-110)
[2024-06-29 21:00] LABS: Glucose,Whole Blood 284 mg/dL (70-110)
[2024-06-29] MEDS: ONDANSETRON 4 MG/2 ML VIAL IVP PRN (21:07)
[2024-06-29 21:22] LABS: African American GFR (CKD) >90 (>60 ml/min/1.73 sqM); Anion Gap 19 mmol/L; Blood Urea Nitrogen 33 mg/dL (9-20); Carbon Dioxide 16 mmol/L (22-30); Chloride 109 mmol/L (98-107); Glucose 288 mg/dL (74-99); Non-African American GFR(CKD) >90 (>60 ml/min/1.73 sqM); Phosphorus 4.2 mg/dL (2.5-4.5); Potassium 4.6 mmol/L (3.5-5.1); Sodium 144 mmol/L (137-145)
[2024-06-29 22:07] LABS: Glucose,Whole Blood 222 mg/dL (70-110)
[2024-06-29 23:03] LABS: Glucose,Whole Blood 202 mg/dL (70-110)
[2024-06-30 00:01] LABS: Glucose,Whole Blood 204 mg/dL (70-110)
[2024-06-30 00:37] LABS: African American GFR (CKD) >90 (>60 ml/min/1.73 sqM); Anion Gap 15 mmol/L; Blood Urea Nitrogen 32 mg/dL (9-20); Carbon Dioxide 20 mmol/L (22-30); Chloride 107 mmol/L (98-107); Glucose 218 mg/dL (74-99); Non-African American GFR(CKD) >90 (>60 ml/min/1.73 sqM); Potassium 4.5 mmol/L (3.5-5.1); Sodium 142 mmol/L (137-145)
[2024-06-30 01:01] LABS: Glucose,Whole Blood 160 mg/dL (70-110)
[2024-06-30] MEDS: METOCLOPRAMIDE 5 MG/ML 2 ML VIAL IVP PRN (01:05)
[2024-06-30 02:11] LABS: Glucose,Whole Blood 117 mg/dL (70-110)
[2024-06-30 03:19] LABS: Glucose,Whole Blood 113 mg/dL (70-110)
[2024-06-30 05:18] LABS: Glucose,Whole Blood 120 mg/dL (70-110)
[2024-06-30 06:13] LABS: Glucose,Whole Blood 181 mg/dL (70-110)
[2024-06-30 07:44] LABS: Glucose,Whole Blood 141 mg/dL (70-110)
[2024-06-30 07:44] LABS: Glucose,Whole Blood 217 mg/dL (70-110)
[2024-06-30 07:58] LABS: Glucose,Whole Blood 240 mg/dL (70-110)
[2024-06-30 08:04] LABS: African American GFR (CKD) >90 (>60 ml/min/1.73 sqM); Anion Gap 13 mmol/L; Blood Urea Nitrogen 29 mg/dL (9-20); Carbon Dioxide 22 mmol/L (22-30); Chloride 106 mmol/L (98-107); Glucose 240 mg/dL (74-99); Non-African American GFR(CKD) >90 (>60 ml/min/1.73 sqM); Potassium 4.2 mmol/L (3.5-5.1); Sodium 141 mmol/L (137-145)
[2024-06-30] MEDS ORDERED: hydrALAZINE HCL 20 MG/ML 1 ML VIAL IVP PRN (08:19)
[2024-06-30 09:06] LABS: Glucose,Whole Blood 244 mg/dL (70-110)
[2024-06-30 10:02] LABS: Glucose,Whole Blood 264 mg/dL (70-110)
[2024-06-30] MEDS: TRIMETHOBENZAMIDE 100 MG/ML 2 ML VIAL IM PRN (10:32)
[2024-06-30 11:08] LABS: Glucose,Whole Blood 294 mg/dL (70-110)
[2024-06-30] MEDS: PANTOPRAZOLE 40 MG/10 ML VIAL IVP SCH (11:42)
[2024-06-30 12:15] LABS: Glucose,Whole Blood 275 mg/dL (70-110)
[2024-06-30 12:49] LABS: African American GFR (CKD) >90 (>60 ml/min/1.73 sqM); Anion Gap 13 mmol/L; Blood Urea Nitrogen 27 mg/dL (9-20); Carbon Dioxide 23 mmol/L (22-30); Chloride 103 mmol/L (98-107); Glucose 323 mg/dL (74-99); Non-African American GFR(CKD) >90 (>60 ml/min/1.73 sqM); Sodium 139 mmol/L (137-145)
[2024-06-30] MEDS: METOCLOPRAMIDE 5 MG/ML 2 ML VIAL IVP SCH (12:59)
[2024-06-30 13:00] LABS: Glucose,Whole Blood 298 mg/dL (70-110)
--- NOTE | 2024-06-30 13:16 | P.HPIM ---
History of Present Illness H&P Date: 06/30/24 History of present illness; patient 34-year-old gentleman past medical history significant for diabetes mellitus, gastritis, GERD who presented the ER for nausea and vomiting. Patient stated that he was all right 3 days back when he started experiencing nausea and vomiting. There was no complaint abdominal pain. Patient did not notice any altered bowel movement. There was no complaint of any blood in the stools. Patient was unable to keep anything down. Patient stated that he kept taking his insulin. There was no complaint of fever or chills. Patient denies any sick contacts. Patient blood sugars were elevated at home because of persistent nausea and vomiting patient had to come to the ER Initial lab work done in the ER showed WBC 14.9, hemoglobin 16.4, platelet count 460, VBG's showed pH of 7.2, bicarb 18, sodium 142, potassium 5, BUN 35, creatinine 0.90 glucose 370 AST 15, ALT 15 UA positive for ketones Acetone serum level positive Patient admitted to internal medicine service REVIEW OF SYSTEMS: CONSTITUTIONAL: No fever, no malaise, no fatigue. HEENT: No recent visual problems or hearing problems. Denied any sore throat. CARDIOVASCULAR: No chest pain, orthopnea, PND, no palpitations, no syncope. PULMONARY: No shortness of breath, no cough, no hemoptysis. GASTROINTESTINAL: As mentioned above NEUROLOGICAL: No headaches, no weakness, no numbness. HEMATOLOGICAL: Denies any bleeding or petechiae. GENITOURINARY: Denies any burning micturition, frequency, or urgency. MUSCULOSKELETAL/RHEUMATOLOGICAL: Denies any joint pain, swelling, or any muscle pain. ENDOCRINE: Denies any polyuria or polydipsia. The rest of the 14-point review of systems is negative. PHYSICAL EXAMINATION: GENERAL: The patient is alert and oriented x3, not in any acute distress. Well developed, well nourished. HEENT: Pupils are round and equally reacting to light. EOMI. No scleral icterus. No conjunctival pallor. Normocephalic, atraumatic. No pharyngeal erythema. No thyromegaly. CARDIOVASCULAR: S1 and S2 present. No murmurs, rubs, or gallops. PULMONARY: Chest is clear to auscultation, no wheezing or crackles. ABDOMEN: Soft, nontender, nondistended, normoactive bowel sounds. No palpable organomegaly. MUSCULOSKELETAL: No joint swelling or deformity. EXTREMITIES: No cyanosis, clubbing, or pedal edema. NEUROLOGICAL: Gross neurological examination did not reveal any focal deficits. SKIN: No rashes. Assessment and plan DKA Poorly controlled insulin-dependent diabetes mellitus Nausea and vomiting Leukocytosis Monitor vital signs Monitor CBC Monitor CMP Continue telemetry monitoring Ordered serial electrolytes every 4 hours Ordered serial glucose monitoring Ordered DKA protocol Ordered insulin drip Ordered IV fluids with normal saline, once blood sugars are less than 250, start D5 half-normal Once anion gap closes and patient able to tolerate oral diet, will switch to subcu insulin Ordered antiemetics Ordered IV Protonix twice a day Continue home meds Labs and medication were reviewed.. Continue same treatment. Continue with symptomatic treatment. Resume home medication. Monitor labs and vitals. DVT and GI prophylaxis. Further recommendations as per clinical course of the patient Dictation was produced using [employer] dictation software. please excuse any grammatical, word or spelling errors. Past Medical History Past Medical History: Asthma, Diabetes Mellitus, Hyperlipidemia, Hypertension, Osteoarthritis (OA) Additional Past Medical History / Comment(s): IDDM type I, diabetic gastroparesis, neuropathy bilateral hands/fingers, migraines, arthrtitis fingers/knees, past R hand and L femur fractures. Previous DKA History of Any Multi-Drug Resistant Organisms: MRSA Date of last positivie culture/infection: 04/26/2014 MDRO Source:: Face Past Surgical History: Ear Surgery, Orthopedic Surgery Additional Past Surgical History / Comment(s): R hand surgery d/t fracture- pinned and pins since removed, L leg femur fracture with pin that eventually was removed, bilateral myringotomy with tubes/ear drum repairs.; Left pinky removal Past Anesthesia/Blood Transfusion Reactions: No Reported Reaction Past Psychological History: Anxiety, Bipolar, Depression Additional Psychological History / Comment(s): Pt states he lives with spouse. Smoking Status: Current every day smoker Past Alcohol Use History: None Reported Additional Past Alcohol Use History / Comment(s): Pt states he started smoking at 5 years old. Past Drug Use History: Marijuana Additional Drug Use History / Comment(s): Occasional marijuana use. - Past Family History Father Family Medical History: Hyperlipidemia, Hypertension, Myocardial Infarction ([place]) Mother Family Medical History: COPD Additional Family Medical History / Comment(s): home O2, Brother(s) Family Medical History: No Reported History Medications and Allergies Home Medications Medication Instructions Recorded Confirmed Type Insulin Aspart [NovoLOG] 10 units SQ AC-TID 03/02/24 06/29/24 History Insulin Glulisine [Apidra] 31 unit SQ HS 03/02/24 06/29/24 History Allergies Allergy/AdvReac Type Severity Reaction Status Date / Time latex Allergy Rash/Hives Verified 06/29/24 18:08 Physical Exam Vitals: Vital Signs Temp Pulse Pulse Resp BP BP Pulse Ox 06/30/24 08:00 97.9 F 81 17 179/101 97 06/30/24 04:00 98.0 F 107 H 16 178/96 99 06/30/24 00:00 97.9 F 106 H 14 179/93 99 06/29/24 20:32 103 H 24 180/110 98 06/29/24 20:00 97.9 F 101 H 18 190/100 98 06/29/24 17:56 105 H 16 140/98 98 06/29/24 17:12 105 H 16 156/98 98 06/29/24 15:52 110 H 20 134/68 98 06/29/24 15:48 110 H 20 100/60 98 06/29/24 14:42 118 H 20 140/110 98 06/29/24 14:38 98.1 F 130 H 20 160/105 98 Intake and Output 06/29/24 06/30/24 06/30/24 22:59 06:59 14:59 Intake Total 21.537 49.113 2.417 Output Total 175 500 Balance -153.463 -450.887 2.417 Intake: Intake, IV Titration 21.537 49.113 2.417 Amount Insulin Regular 100 unit 21.537 49.113 2.417 In Sodium Chloride 0.9% 100 ml @ 0.1 UNITS/KG/HR 6.185 mls/hr IV .[id number] [facility] Rx#:[id number] Output: Urine 175 500 Other: Voiding Method Urinal Urinal Urinal Weight 61.235 kg 81.5 kg Results CBC & Chem 7: 06/29/24 14:51 06/30/24 07:17 Labs: Abnormal Lab Results - Last 24 Hours (Table) 06/29/24 06/29/24 06/29/24 Range/Units 14:38 14:51 14:51 WBC 14.9 H (3.8-10.6) k/uL Plt Count 460 H (150-450) k/uL Neutrophils # 11.6 H (1.3-7.7) k/uL VBG pH (7.31-7.41) VBG HCO3 (24-28) mmol/L Chloride (98-107) mmol/L Carbon Dioxide (22-30) mmol/L BUN (9-20) mg/dL Glucose (74-99) mg/dL POC Glucose (mg/dL) 370 H (70-110) mg/dL AST (17-59) U/L Alkaline Phosphatase (38-126) U/L Urine Protein 1+ H (Negative) Urine Glucose (UA) 4+ H (Negative) Urine Ketones 4+ H (Negative) Urine Mucus Rare H (None) /hpf 06/29/24 06/29/24 06/29/24 Range/Units 14:51 15:30 17:17 WBC (3.8-10.6) k/uL Plt Count (150-450) k/uL Neutrophils # (1.3-7.7) k/uL VBG pH 7.20 L* (7.31-7.41) VBG HCO3 18 L (24-28) mmol/L Chloride (98-107) mmol/L Carbon Dioxide 16 L (22-30) mmol/L BUN 35 H (9-20) mg/dL Glucose 445 H (74-99) mg/dL POC Glucose (mg/dL) 408 H (70-110) mg/dL AST 15 L (17-59) U/L Alkaline Phosphatase 163 H (38-126) U/L Urine Protein (Negative) Urine Glucose (UA) (Negative) Urine Ketones (Negative) Urine Mucus (None) /hpf 06/29/24 06/29/24 06/29/24 Range/Units 18:26 19:02 20:05 WBC (3.8-10.6) k/uL Plt Count (150-450) k/uL Neutrophils # (1.3-7.7) k/uL VBG pH (7.31-7.41) VBG HCO3 (24-28) mmol/L Chloride (98-107) mmol/L Carbon Dioxide (22-30) mmol/L BUN (9-20) mg/dL Glucose (74-99) mg/dL POC Glucose (mg/dL) 353 H 275 H 266 H (70-110) mg/dL AST (17-59) U/L Alkaline Phosphatase (38-126) U/L Urine Protein (Negative) Urine Glucose (UA) (Negative) Urine Ketones (Negative) Urine Mucus (None) /hpf 06/29/24 06/29/24 06/29/24 Range/Units 20:48 20:59 22:06 WBC (3.8-10.6) k/uL Plt Count (150-450) k/uL Neutrophils # (1.3-7.7) k/uL VBG pH (7.31-7.41) VBG HCO3 (24-28) mmol/L Chloride 109 H (98-107) mmol/L Carbon Dioxide 16 L (22-30) mmol/L BUN 33 H (9-20) mg/dL Glucose 288 H (74-99) mg/dL POC Glucose (mg/dL) 284 H 222 H (70-110) mg/dL AST (17-59) U/L Alkaline Phosphatase (38-126) U/L Urine Protein (Negative) Urine Glucose (UA) (Negative) Urine Ketones (Negative) Urine Mucus (None) /hpf 06/29/24 06/30/24 06/30/24 Range/Units 23:02 00:00 00:00 WBC (3.8-10.6) k/uL Plt Count (150-450) k/uL Neutrophils # (1.3-7.7) k/uL VBG pH (7.31-7.41) VBG HCO3 (24-28) mmol/L Chloride (98-107) mmol/L Carbon Dioxide 20 L (22-30) mmol/L BUN 32 H (9-20) mg/dL Glucose 218 H (74-99) mg/dL POC Glucose (mg/dL) 202 H 204 H (70-110) mg/dL AST (17-59) U/L Alkaline Phosphatase (38-126) U/L Urine Protein (Negative) Urine Glucose (UA) (Negative) Urine Ketones (Negative) Urine Mucus (None) /hpf 06/30/24 06/30/24 06/30/24 Range/Units 00:59 02:09 03:18 WBC (3.8-10.6) k/uL Plt Count (150-450) k/uL Neutrophils # (1.3-7.7) k/uL VBG pH (7.31-7.41) VBG HCO3 (24-28) mmol/L Chloride (98-107) mmol/L Carbon Dioxide (22-30) mmol/L BUN (9-20) mg/dL Glucose (74-99) mg/dL POC Glucose (mg/dL) 160 H 117 H 113 H (70-110) mg/dL AST (17-59) U/L Alkaline Phosphatase (38-126) U/L Urine Protein (Negative) Urine Glucose (UA) (Negative) Urine Ketones (Negative) Urine Mucus (None) /hpf 06/30/24 06/30/24 06/30/24 Range/Units 04:20 05:15 06:12 WBC (3.8-10.6) k/uL Plt Count (150-450) k/uL Neutrophils # (1.3-7.7) k/uL VBG pH (7.31-7.41) VBG HCO3 (24-28) mmol/L Chloride (98-107) mmol/L Carbon Dioxide (22-30) mmol/L BUN (9-20) mg/dL Glucose (74-99) mg/dL POC Glucose (mg/dL) 120 H 141 H 181 H (70-110) mg/dL AST (17-59) U/L Alkaline Phosphatase (38-126) U/L Urine Protein (Negative) Urine Glucose (UA) (Negative) Urine Ketones (Negative) Urine Mucus (None) /hpf 06/30/24 06/30/24 06/30/24 Range/Units 07:06 07:17 07:57 WBC (3.8-10.6) k/uL Plt Count (150-450) k/uL Neutrophils # (1.3-7.7) k/uL VBG pH (7.31-7.41) VBG HCO3 (24-28) mmol/L Chloride (98-107) mmol/L Carbon Dioxide (22-30) mmol/L BUN 29 H (9-20) mg/dL Glucose 240 H (74-99) mg/dL POC Glucose (mg/dL) 217 H 240 H (70-110) mg/dL AST (17-59) U/L Alkaline Phosphatase (38-126) U/L Urine Protein (Negative) Urine Glucose (UA) (Negative) Urine Ketones (Negative) Urine Mucus (None) /hpf 06/30/24 06/30/24 Range/Units 09:04 10:00 WBC (3.8-10.6) k/uL Plt Count (150-450) k/uL Neutrophils # (1.3-7.7) k/uL VBG pH (7.31-7.41) VBG HCO3 (24-28) mmol/L Chloride (98-107) mmol/L Carbon Dioxide (22-30) mmol/L BUN (9-20) mg/dL Glucose (74-99) mg/dL POC Glucose (mg/dL) 244 H 264 H (70-110) mg/dL AST (17-59) U/L Alkaline Phosphatase (38-126) U/L Urine Protein (Negative) Urine Glucose (UA) (Negative) Urine Ketones (Negative) Urine Mucus (None) /hpf
[2024-06-30 14:08] LABS: Glucose,Whole Blood 257 mg/dL (70-110)
[2024-06-30 14:32] VITALS: BMI 25.7
[2024-06-30 15:10] LABS: Glucose,Whole Blood 210 mg/dL (70-110)
[2024-06-30 16:08] LABS: Glucose,Whole Blood 194 mg/dL (70-110)
[2024-06-30 17:03] LABS: African American GFR (CKD) >90 (>60 ml/min/1.73 sqM); Anion Gap 13 mmol/L; Blood Urea Nitrogen 24 mg/dL (9-20); Calcium 9.3 mg/dL (8.4-10.2); Carbon Dioxide 20 mmol/L (22-30); Chloride 105 mmol/L (98-107); Non-African American GFR(CKD) >90 (>60 ml/min/1.73 sqM); Sodium 138 mmol/L (137-145)
[2024-06-30 17:09] LABS: Glucose,Whole Blood 153 mg/dL (70-110)
[2024-06-30 17:32] LABS: Glucose 199 mg/dL (74-99); Potassium 4.8 mmol/L (3.5-5.1)
[2024-06-30 18:08] LABS: Glucose,Whole Blood 119 mg/dL (70-110)
[2024-06-30 19:10] LABS: Glucose,Whole Blood 119 mg/dL (70-110)
[2024-06-30 20:05] LABS: Glucose,Whole Blood 131 mg/dL (70-110)
[2024-06-30] MEDS: HYDROmorphone 0.5 MG/0.5 ML SYRINGE IVP STA (21:02)
[2024-06-30 21:04] LABS: African American GFR (CKD) >90 (>60 ml/min/1.73 sqM); Anion Gap 10 mmol/L; Blood Urea Nitrogen 20 mg/dL (9-20); Carbon Dioxide 25 mmol/L (22-30); Chloride 101 mmol/L (98-107); Glucose 165 mg/dL (74-99); Non-African American GFR(CKD) >90 (>60 ml/min/1.73 sqM); Potassium 3.9 mmol/L (3.5-5.1); Sodium 136 mmol/L (137-145)
[2024-06-30 21:06] LABS: Glucose,Whole Blood 172 mg/dL (70-110)
[2024-06-30 22:06] LABS: Glucose,Whole Blood 201 mg/dL (70-110)
[2024-06-30 22:55] LABS: Glucose,Whole Blood 205 mg/dL (70-110)
[2024-07-01 00:04] LABS: Glucose,Whole Blood 191 mg/dL (70-110)
[2024-07-01 01:02] LABS: African American GFR (CKD) >90 (>60 ml/min/1.73 sqM); Anion Gap 6 mmol/L; Blood Urea Nitrogen 16 mg/dL (9-20); Carbon Dioxide 28 mmol/L (22-30); Chloride 100 mmol/L (98-107); Glucose 187 mg/dL (74-99); Non-African American GFR(CKD) >90 (>60 ml/min/1.73 sqM); Potassium 3.5 mmol/L (3.5-5.1); Sodium 134 mmol/L (137-145)
[2024-07-01 01:04] LABS: Glucose,Whole Blood 157 mg/dL (70-110)
[2024-07-01 01:59] LABS: Glucose,Whole Blood 149 mg/dL (70-110)
[2024-07-01 03:07] LABS: Glucose,Whole Blood 135 mg/dL (70-110)
[2024-07-01 04:11] LABS: Glucose,Whole Blood 189 mg/dL (70-110)
[2024-07-01 05:06] LABS: Glucose,Whole Blood 250 mg/dL (70-110)
[2024-07-01 06:05] LABS: Glucose,Whole Blood 253 mg/dL (70-110)
[2024-07-01 07:05] LABS: Glucose,Whole Blood 229 mg/dL (70-110)
[2024-07-01] MEDS: INSULIN ASPART (NovoLOG) 100 UNIT/ML VIAL SQ SCH ×2 (07:41→11:28)
[2024-07-01 08:04] LABS: Glucose,Whole Blood 235 mg/dL (70-110)
[2024-07-01 08:55] LABS: Glucose,Whole Blood 245 mg/dL (70-110)
[2024-07-01] MEDS: lisinopriL 5 MG TAB PO SCH (11:30)
[2024-07-01 11:31] LABS: Glucose,Whole Blood 93 mg/dL (70-110)
[2024-07-01 11:33] LABS: ALT 13 U/L (4-49); AST 21 U/L (17-59); African American GFR (CKD) >90 (>60 ml/min/1.73 sqM); Albumin 3.5 g/dL (3.5-5.0); Alkaline Phosphatase 117 U/L (38-126); Anion Gap 6 mmol/L; Blood Urea Nitrogen 12 mg/dL (9-20); Calcium 9.4 mg/dL (8.4-10.2); Carbon Dioxide 31 mmol/L (22-30); Chloride 100 mmol/L (98-107); Glucose 130 mg/dL (74-99); Non-African American GFR(CKD) >90 (>60 ml/min/1.73 sqM); Potassium 3.4 mmol/L (3.5-5.1); Sodium 137 mmol/L (137-145); Total Bilirubin 0.8 mg/dL (0.2-1.3); Total Protein 6.1 g/dL (6.3-8.2)
--- NOTE | 2024-07-01 13:47 | P.PN ---
Subjective Progress Note Date: 07/01/24 patient 34-year-old gentleman past medical history significant for diabetes mellitus, gastritis, GERD who presented the ER for nausea and vomiting. Patient stated that he was all right 3 days back when he started experiencing nausea and vomiting. There was no complaint abdominal pain. Patient did not notice any altered bowel movement. There was no complaint of any blood in the stools. Patient was unable to keep anything down. Patient stated that he kept taking his insulin. There was no complaint of fever or chills. Patient denies any sick contacts. Patient blood sugars were elevated at home because of persistent nausea and vomiting patient had to come to the ER Initial lab work done in the ER showed WBC 14.9, hemoglobin 16.4, platelet count 460, VBG's showed pH of 7.2, bicarb 18, sodium 142, potassium 5, BUN 35, creatinine 0.90 glucose 370 AST 15, ALT 15 UA positive for ketones Acetone serum level positive Patient admitted to internal medicine service 07/01. Patient seen and examined. Blood pressure is elevated we will start patient on lisinopril. Patient anion gap has closed, currently has been switched off insulin drip to subcu insulin. REVIEW OF SYSTEMS: CONSTITUTIONAL: No fever, no malaise,. CARDIOVASCULAR: No chest pain, no palpitations, no syncope. PULMONARY: No shortness of breath, no cough, GASTROINTESTINAL: No diarrhea, no nausea, no vomiting, no abdominal pain. NEUROLOGICAL: No headaches, no weakness, PHYSICAL EXAMINATION: GENERAL: The patient is alert and oriented x3, not in any acute distress. Well developed, well nourished. HEENT: Pupils are round and equally reacting to light. EOMI. No scleral icterus. No conjunctival pallor. Normocephalic, atraumatic. No pharyngeal erythema. No thyromegaly. CARDIOVASCULAR: S1 and S2 present. No murmurs, rubs, or gallops. PULMONARY: Chest is clear to auscultation, no wheezing or crackles. ABDOMEN: Soft, nontender, nondistended, normoactive bowel sounds. No palpable organomegaly. MUSCULOSKELETAL: No joint swelling or deformity. EXTREMITIES: No cyanosis, clubbing, or pedal edema. NEUROLOGICAL: Gross neurological examination did not reveal any focal deficits. SKIN: No rashes. Assessment and plan DKA Poorly controlled insulin-dependent diabetes mellitus Nausea and vomiting Leukocytosis Hypertension Monitor vital signs Monitor CBC Monitor CMP Monitor blood sugar levels DC insulin drip, switch to subcu insulin Levemir units twice a day and sliding scale insulin Start lisinopril Continue fluids Encourage patient to eat, currently on consistent carbohydrate diet Continue rest of treatment Labs and medication were reviewed.. Continue same treatment. Continue with symptomatic treatment. Resume home medication. Monitor labs and vitals. DVT and GI prophylaxis. Further recommendations as per clinical course of the patient Dictation was produced using [employer] dictation software. please excuse any grammatical, word or spelling errors. Objective - Vital Signs Vital signs: Vital Signs Temp 98.8 F 07/01/24 07:43 Pulse 77 07/01/24 07:43 Resp 16 07/01/24 07:43 BP 167/93 07/01/24 07:43 Pulse Ox 98 07/01/24 07:43 FiO2 Intake & Output 06/30/24 07/01/24 07/01/24 18:59 06:59 18:59 Intake Total 476.030 8137.337 19.587 Output Total 250 Balance 098.179 9779.337 19.587 Weight 81.5 kg 63.3 kg Intake: IV 10 20 10 Invasive Line 3 10 20 10 Intake, IV Titration 36.366 1519.337 9.587 Amount D5-0.45% NaCl with KCl 1500 20Meq/l 1,000 ml @ 150 mls/hr IV .[id number] [facility] Rx# :[id number] Insulin Regular 100 unit 36.366 19.337 9.587 In Sodium Chloride 0.9% 100 ml @ 0.1 UNITS/KG/HR 6.185 mls/hr IV .[id number] ARUNA Rx#:[id number] Oral 115 Output: Urine 250 Other: Voiding Method Urinal Urinal Urinal # Voids 1 1 # Bowel Movements 0 - Labs CBC & Chem 7: 06/29/24 14:51 07/01/24 10:44 Labs: Abnormal Lab Results - Last 24 Hours (Table) 06/30/24 06/30/24 06/30/24 Range/Units 11:06 12:13 12:15 Sodium (137-145) mmol/L Carbon Dioxide (22-30) mmol/L BUN 27 H (9-20) mg/dL Creatinine (0.66-1.25) mg/dL Glucose 323 H (74-99) mg/dL POC Glucose (mg/dL) 294 H 275 H (70-110) mg/dL 06/30/24 06/30/24 06/30/24 Range/Units 12:58 14:07 15:09 Sodium (137-145) mmol/L Carbon Dioxide (22-30) mmol/L BUN (9-20) mg/dL Creatinine (0.66-1.25) mg/dL Glucose (74-99) mg/dL POC Glucose (mg/dL) 298 H 257 H 210 H (70-110) mg/dL 06/30/24 06/30/24 06/30/24 Range/Units 16:07 16:08 17:07 Sodium (137-145) mmol/L Carbon Dioxide 20 L (22-30) mmol/L BUN 24 H (9-20) mg/dL Creatinine 0.59 L (0.66-1.25) mg/dL Glucose 199 H (74-99) mg/dL POC Glucose (mg/dL) 194 H 153 H (70-110) mg/dL 06/30/24 06/30/24 06/30/24 Range/Units 18:07 19:08 20:04 Sodium (137-145) mmol/L Carbon Dioxide (22-30) mmol/L BUN (9-20) mg/dL Creatinine (0.66-1.25) mg/dL Glucose (74-99) mg/dL POC Glucose (mg/dL) 119 H 119 H 131 H (70-110) mg/dL 06/30/24 06/30/24 06/30/24 Range/Units 20:24 21:04 22:04 Sodium 136 L (137-145) mmol/L Carbon Dioxide (22-30) mmol/L BUN (9-20) mg/dL Creatinine 0.62 L (0.66-1.25) mg/dL Glucose 165 H (74-99) mg/dL POC Glucose (mg/dL) 172 H 201 H (70-110) mg/dL 06/30/24 07/01/24 07/01/24 Range/Units 22:53 00:02 00:12 Sodium 134 L (137-145) mmol/L Carbon Dioxide (22-30) mmol/L BUN (9-20) mg/dL Creatinine 0.62 L (0.66-1.25) mg/dL Glucose 187 H (74-99) mg/dL POC Glucose (mg/dL) 205 H 191 H (70-110) mg/dL 07/01/24 07/01/24 07/01/24 Range/Units 01:03 01:58 03:05 Sodium (137-145) mmol/L Carbon Dioxide (22-30) mmol/L BUN (9-20) mg/dL Creatinine (0.66-1.25) mg/dL Glucose (74-99) mg/dL POC Glucose (mg/dL) 157 H 149 H 135 H (70-110) mg/dL 07/01/24 07/01/24 07/01/24 Range/Units 04:09 05:05 06:04 Sodium (137-145) mmol/L Carbon Dioxide (22-30) mmol/L BUN (9-20) mg/dL Creatinine (0.66-1.25) mg/dL Glucose (74-99) mg/dL POC Glucose (mg/dL) 189 H 250 H 253 H (70-110) mg/dL 07/01/24 07/01/24 07/01/24 Range/Units 07:03 08:03 08:53 Sodium (137-145) mmol/L Carbon Dioxide (22-30) mmol/L BUN (9-20) mg/dL Creatinine (0.66-1.25) mg/dL Glucose (74-99) mg/dL POC Glucose (mg/dL) 229 H 235 H 245 H (70-110) mg/dL
[2024-07-01] MEDS: HYDROcodone/APAP 5-325MG 1 EACH TAB PO PRN (15:57)
[2024-07-01 16:30] LABS: Glucose,Whole Blood 304 mg/dL (70-110)
[2024-07-01 20:17] LABS: Glucose,Whole Blood 263 mg/dL (70-110)
[2024-07-01] MEDS: INSULIN DETEMIR (LEVEMIR) 100 UNIT/ML SYR SQ SCH (20:34)
[2024-07-02 05:52] LABS: Glucose,Whole Blood 187 mg/dL (70-110)
[2024-07-02 09:14] VITALS: PULSE 92; RESP 16; TEMP 97.9
[2024-07-02 10:44] LABS: African American GFR (CKD) >90 (>60 ml/min/1.73 sqM); Anion Gap 6 mmol/L; Blood Urea Nitrogen 18 mg/dL (9-20); Calcium 9.4 mg/dL (8.4-10.2); Carbon Dioxide 29 mmol/L (22-30); Chloride 99 mmol/L (98-107); Glucose 288 mg/dL (74-99); Non-African American GFR(CKD) >90 (>60 ml/min/1.73 sqM); Potassium 4.2 mmol/L (3.5-5.1); Sodium 134 mmol/L (137-145)
[2024-07-02 11:17] LABS: Glucose,Whole Blood 249 mg/dL (70-110)
[2024-07-02 12:37] VITALS: BP 145/94
== END 2024-07-02 13:31 | disposition home or self-care (01) | DRG 639 ==
LOC: EC 14:18 → 3SCARD 17:10
PROVIDERS: ADMIT Hospitalist; ATTEND Hospitalist
DX: E10.10 Type 1 diabetes mellitus with ketoacidosis without coma (principal); D72.829 Elevated white blood cell count, unspecified; E86.0 Dehydration; F17.200 Nicotine dependence, unspecified, uncomplicated; E10.43 Type 1 diabetes mellitus with diabetic autonomic (poly)neuropathy; I10 Essential (primary) hypertension; K31.84 Gastroparesis; Z79.4 Long term (current) use of insulin; Z91.040 Latex allergy status; Z87.01 Personal history of pneumonia (recurrent)
CPT/HCPCS: 36415; 80048; 80051; 80053; 81001; 82009; 82565; 82803; 82947; 83605; 83735; 84100; 84520; 85025; 85610; 85730; 93005; 96361; 96365; 96375; 99291

== ENCOUNTER 2024-08-05 19:57 | Inpatient (IN) | payer OTHER, MEDICARE ==
--- NOTE | 2024-08-05 20:05 | ED ---
Recheck HPI - General Stated Complaint: Hyperglycemia Time Seen by Provider: 08/05/24 20:02 Source: RN notes reviewed, old records reviewed Limitations: no limitations - History of Present Illness Initial Comments: This is a 34-year-old male to the ER for evaluation history of diabetes type 1 insulin-dependent, patient is coming in for severe elevated blood sugar and shortness of breath Patient is a poor historian secondary to near comatose state MD Complaint: abnormal lab (Hypoglycemia) -: days(s) Returns Today for: Called Because of Abnormal Lab/Test Symptoms Since Prior Visit: worsening pain Context: called for abnormal lab result Associated Symptoms: shortness of breath, malaise, nausea Treatments Prior to Arrival: other - Related Data Home Medications Medication Instructions Recorded Confirmed Insulin Aspart [NovoLOG] 10 units SQ AC-TID 03/02/24 06/29/24 Insulin Glulisine [Apidra] 31 unit SQ HS 03/02/24 06/29/24 Previous Rx's Medication Instructions Recorded lisinopriL [Zestril] 5 mg PO DAILY #30 tab 07/02/24 Allergies Allergy/AdvReac Type Severity Reaction Status Date / Time latex Allergy Rash/Hives Verified 08/05/24 20:10 Review of Systems ROS Statement: Those systems with pertinent positive or pertinent negative responses have been documented in the HPI. ROS Other: All systems not noted in ROS Statement are negative. Past Medical History Past Medical History: Asthma, Diabetes Mellitus, Hyperlipidemia, Hypertension, Osteoarthritis (OA) Additional Past Medical History / Comment(s): IDDM type I, diabetic gastroparesis, neuropathy bilateral hands/fingers, migraines, arthrtitis fingers/knees, past R hand and L femur fractures. Previous DKA History of Any Multi-Drug Resistant Organisms: MRSA Date of last positivie culture/infection: 04/26/2014 MDRO Source:: Face Past Surgical History: Ear Surgery, Orthopedic Surgery Additional Past Surgical History / Comment(s): R hand surgery d/t fracture- pinned and pins since removed, L leg femur fracture with pin that eventually was removed, bilateral myringotomy with tubes/ear drum repairs.; Left pinky removal Past Anesthesia/Blood Transfusion Reactions: No Reported Reaction Past Psychological History: Anxiety, Bipolar, Depression Additional Psychological History / Comment(s): Pt states he lives with spouse. Smoking Status: Current every day smoker Past Alcohol Use History: None Reported Additional Past Alcohol Use History / Comment(s): Pt states he started smoking at 5 years old. Past Drug Use History: Marijuana Additional Drug Use History / Comment(s): Occasional marijuana use. - Past Family History Father Family Medical History: Hyperlipidemia, Hypertension, Myocardial Infarction ([place]) Mother Family Medical History: COPD Additional Family Medical History / Comment(s): home O2, Brother(s) Family Medical History: No Reported History General Exam General appearance: anxious, in distress Head exam: Present: atraumatic, normocephalic, normal inspection Eye exam: Present: normal appearance, PERRL, EOMI. Absent: scleral icterus, conjunctival injection, periorbital swelling ENT exam: Present: normal exam, mucous membranes moist Neck exam: Present: normal inspection. Absent: tenderness, meningismus, lymphadenopathy Respiratory exam: Present: normal lung sounds bilaterally. Absent: respiratory distress, wheezes, rales, rhonchi, stridor Cardiovascular Exam: Present: normal rhythm, tachycardia, normal heart sounds. Absent: systolic murmur, diastolic murmur, rubs, gallop, clicks GI/Abdominal exam: Present: soft, normal bowel sounds. Absent: distended, tenderness, guarding, rebound, rigid Extremities exam: Present: normal inspection, full ROM, normal capillary refill. Absent: tenderness, pedal edema, joint swelling, calf tenderness Back exam: Present: normal inspection Neurological exam: Present: alert, oriented X3, CN II-XII intact Psychiatric exam: Present: normal affect, normal mood Skin exam: Present: warm, dry, intact, normal color. Absent: rash Course Vital Signs 08/05/24 08/05/24 08/05/24 20:07 21:49 22:30 Temperature 97.5 F L 97.0 F L Pulse Rate 121 H 128 H 128 H Respiratory 20 20 22 Rate Blood Pressure 101/67 128/71 108/93 O2 Sat by Pulse 100 99 96 Oximetry 08/05/24 23:18 Temperature 97.0 F L Pulse Rate 129 H Respiratory 22 Rate Blood Pressure 136/90 O2 Sat by Pulse 100 Oximetry - Reevaluation(s) Reevaluation #1: 08/05/24 22:21 Medical records reviewed Patient is admitted every 3 months or so 2 to 3 months for DKA Reevaluation #2: 08/05/24 22:21 Patient symptoms unchanged Patient becoming more awake and alert with hydration here in the ER Vital signs heart rate improving Reevaluation #3: 08/05/24 22:21 Patient informed of results questions answered Reevaluation #4: Was pt. sent in by a medical professional or institution ([facility], TECHNICIAN'S HELPER, urgent care, hospital, or senior living...) When possible be specific @ -no Did you speak to anyone other than the patient for history (EMS, parent, family, police, friend...)? What history was obtained from this source @ -no Did you review nursing and triage notes (agree or disagree)? Why? @ -agree Are old charts reviewed (outside hosp., previous admission, EMS record, old EKG, old radiological studies, urgent care reports/EKG's, senior living records)? Report findings @ -yes Differential Diagnosis (chest pain, altered mental status, abdominal pain women, abdominal pain men, vaginal bleeding, weakness, fever, dyspnea, syncope, headache, dizziness, GI bleed, back pain, seizure, CVA, palpatations, mental health, musculoskeletal)? @ -prior EKG interpreted by me (3pts min.). @ -yes X-rays interpreted by me (1pt min.). @ -yes negative for acute disease CT interpreted by me (1pt min.). @ -no U/S interpreted by me (1pt. min.). @ -no What testing was considered but not performed or refused? (CT, X-rays, U/S, labs)? Why? @ -none What meds were considered but not given or refused? Why? @ -none Did you discuss the management of the patient with other professionals (pr ofessionals i.e. [facility], TECHNICIAN'S HELPER, lab, RT, psych nurse, social media job titles, press puller, teacher, executive vice president and chief financial officer, heel caser)? Give summary @ -no Was smoking cessation discussed for >3mins.? @ -no Was critical care preformed (if so, how long)? @ -no Were there social determinants of health that impacted care today? How? (Homelessness, low income, unemployed, alcoholism, drug addiction, transportation, low edu. Level, literacy, decrease access to med. care, detention, rehab)? @ -none Was there de-escalation of care discussed even if they declined (Discuss DNR or withdrawal of care, Hospice)? DNR status @ -no What co-morbidities impacted this encounter? (DM, HTN, Smoking, COPD, CAD, Cancer, CVA, ARF, Chemo, Hep., AIDS, mental health diagnosis, sleep apnea, morbid obesity)? @ -none Was patient admitted / discharged? Hospital course, mention meds given and route, prescriptions, significant lab abnormalities, going to OR and other pertinent info. @ - Undiagnosed new problem with uncertain prognosis? @ -no Drug Therapy requiring intensive monitoring for toxicity (Heparin, Nitro, Insulin, Cardizem)? @ -no Were any procedures done? @ -no Diagnosis/symptom? @ - Acute, or Chronic, or Acute on Chronic? @ -Acute Uncomplicated (without systemic symptoms) or Complicated (systemic symptoms)? @ -Complicated Side effects of treatment? @ -no Exacerbation, Progression, or Severe Exacerbation? @ -exacerbation Poses a threat to life or bodily function? How? (Chest pain, [place], [place], pneumonia, PE, COPD, DKA, ARF, appy, cholecystitis, CVA, Diverticulitis, Homicidal, Suicidal, threat to staff... and all critical care pts) @ -yes Reevaluation #5: Differential Dyspnea: Coronary syndrome, arrhythmia, tamponade, asthma, COPD, pulmonary embolism, pneumonia, pneumothorax, pulmonary effusion, anaphylaxis, diabetic ketoacidosis, flailed chest, pulmonary contusion, diaphragmatic rupture, anemia, neuromuscular, this is not meant to be an all-inclusive list. Differential Weakness: Hypoglycemia, shock, sepsis, hyponatremia, anemia, infection, [place], ETOH, adverse medicine reaction, overdose, stroke, this is not meant to be an all-inclusive list. - Consultations Consultation #1: Spoke with [facility] who agrees to admit this patient Consultation #2: Patient accepted in ICU for admission Medical Decision Making - Medical Decision Making 34 male to the ER for evaluation of hyperglycemia severely weak short of breath and found to be in DKA. Patient will be admitted to the ICU - Lab Data Result diagrams: 08/05/24 20:42 08/05/24 20:42 Lab Results 08/05/24 08/05/24 08/05/24 Range/Units 20:32 20:42 20:42 WBC 27.7 H (3.8-10.6) k/uL RBC 4.85 (4.30-5.90) m/uL Hgb 14.2 (13.0-17.5) gm/dL Hct 53.6 H (39.0-53.0) % MCV 110.4 H D (80.0-100.0) fL MCH 29.3 (25.0-35.0) pg MCHC 26.6 L (31.0-37.0) g/dL RDW 14.3 (11.5-15.5) % Plt Count 501 H (150-450) k/uL MPV 9.7 Neutrophils % (Manual) 74 % Band Neuts % (Manual) 8 % Lymphocytes % (Manual) 10 % Monocytes % (Manual) 5 % Metamyelocytes % 3 % Neutrophils # (Manual) 22.70 H (1.3-7.7) k/uL Lymphocytes # (Manual) 2.77 (1.0-4.8) k/uL Monocytes # (Manual) 1.39 H (0-1.0) k/uL Metamyelocytes # (Man) 0.83 H (0) k/uL Nucleated RBCs 0 (0-0) /100 WBC Manual Slide Review Performed Hypochromasia Marked Macrocytosis Marked A PT 10.0 (10.0-12.5) sec INR 0.9 (<1.2) APTT 23.6 (22.0-30.0) sec VBG pH (7.31-7.41) VBG pCO2 (37-51) mmHg VBG HCO3 (24-28) mmol/L Sodium (137-145) mmol/L Potassium (3.5-5.1) mmol/L Chloride (98-107) mmol/L Carbon Dioxide (22-30) mmol/L Anion Gap mmol/L BUN (9-20) mg/dL Creatinine (0.66-1.25) mg/dL Est GFR (CKD-EPI)AfAm (>60 ml/min/1.73 sqM) Est GFR (CKD-EPI)NonAf (>60 ml/min/1.73 sqM) Glucose (74-99) mg/dL POC Glucose (mg/dL) >600 H* (70-110) mg/dL POC Glu Superintendent Pipelines ID [place] Plasma Lactic Acid Neymar (0.7-2.0) mmol/L Calcium (8.4-10.2) mg/dL Phosphorus (2.5-4.5) mg/dL Magnesium (1.6-2.3) mg/dL Total Bilirubin (0.2-1.3) mg/dL AST (17-59) U/L ALT (4-49) U/L Alkaline Phosphatase (38-126) U/L Troponin I (0.000-0.034) ng/mL Total Protein (6.3-8.2) g/dL Albumin (3.5-5.0) g/dL TSH (0.465-4.680) mIU/L Urine Color Urine Appearance (Clear) Urine pH (5.0-8.0) Ur Specific [place] (1.001-1.035) Urine Protein (Negative) Urine Glucose (UA) (Negative) Urine Ketones (Negative) Urine Blood (Negative) Urine Nitrite (Negative) Urine Bilirubin (Negative) Urine Urobilinogen (<2.0) mg/dL Ur Leukocyte Esterase (Negative) Urine RBC (0-5) /hpf Urine WBC (0-5) /hpf Urine Bacteria (None) /hpf Hyaline Casts (0-2) /lpf Urine Mucus (None) /hpf Acetone, Qual (Negative) 08/05/24 08/05/24 08/05/24 Range/Units 20:42 20:42 20:42 WBC (3.8-10.6) k/uL RBC (4.30-5.90) m/uL Hgb (13.0-17.5) gm/dL Hct (39.0-53.0) % MCV (80.0-100.0) fL MCH (25.0-35.0) pg MCHC (31.0-37.0) g/dL RDW (11.5-15.5) % Plt Count (150-450) k/uL MPV Neutrophils % (Manual) % Band Neuts % (Manual) % Lymphocytes % (Manual) % Monocytes % (Manual) % Metamyelocytes % % Neutrophils # (Manual) (1.3-7.7) k/uL Lymphocytes # (Manual) (1.0-4.8) k/uL Monocytes # (Manual) (0-1.0) k/uL Metamyelocytes # (Man) (0) k/uL Nucleated RBCs (0-0) /100 WBC Manual Slide Review Hypochromasia Macrocytosis PT (10.0-12.5) sec INR (<1.2) APTT (22.0-30.0) sec VBG pH (7.31-7.41) VBG pCO2 (37-51) mmHg VBG HCO3 (24-28) mmol/L Sodium 133 L (137-145) mmol/L Potassium 6.7 H* (3.5-5.1) mmol/L Chloride 90 L (98-107) mmol/L Carbon Dioxide 7 L* (22-30) mmol/L Anion Gap 36 mmol/L BUN 61 H (9-20) mg/dL Creatinine 2.88 H (0.66-1.25) mg/dL Est GFR (CKD-EPI)AfAm 31 (>60 ml/min/1.73 sqM) Est GFR (CKD-EPI)NonAf 27 (>60 ml/min/1.73 sqM) Glucose 1381 H* (74-99) mg/dL POC Glucose (mg/dL) (70-110) mg/dL POC Glu Superintendent Pipelines ID Plasma Lactic Acid Neymar 9.5 H* (0.7-2.0) mmol/L Calcium 9.0 (8.4-10.2) mg/dL Phosphorus 7.2 H (2.5-4.5) mg/dL Magnesium 3.0 H (1.6-2.3) mg/dL Total Bilirubin 0.5 (0.2-1.3) mg/dL AST 24 (17-59) U/L ALT 35 (4-49) U/L Alkaline Phosphatase 253 H (38-126) U/L Troponin I <0.012 (0.000-0.034) ng/mL Total Protein 7.5 (6.3-8.2) g/dL Albumin 4.8 (3.5-5.0) g/dL TSH 1.260 (0.465-4.680) mIU/L Urine Color Urine Appearance (Clear) Urine pH (5.0-8.0) Ur Specific [place] (1.001-1.035) Urine Protein (Negative) Urine Glucose (UA) (Negative) Urine Ketones (Negative) Urine Blood (Negative) Urine Nitrite (Negative) Urine Bilirubin (Negative) Urine Urobilinogen (<2.0) mg/dL Ur Leukocyte Esterase (Negative) Urine RBC (0-5) /hpf Urine WBC (0-5) /hpf Urine Bacteria (None) /hpf Hyaline Casts (0-2) /lpf Urine Mucus (None) /hpf Acetone, Qual Positive (Negative) 08/05/24 08/05/24 Range/Units 22:12 22:15 WBC (3.8-10.6) k/uL RBC (4.30-5.90) m/uL Hgb (13.0-17.5) gm/dL Hct (39.0-53.0) % MCV (80.0-100.0) fL MCH (25.0-35.0) pg MCHC (31.0-37.0) g/dL RDW (11.5-15.5) % Plt Count (150-450) k/uL MPV Neutrophils % (Manual) % Band Neuts % (Manual) % Lymphocytes % (Manual) % Monocytes % (Manual) % Metamyelocytes % % Neutrophils # (Manual) (1.3-7.7) k/uL Lymphocytes # (Manual) (1.0-4.8) k/uL Monocytes # (Manual) (0-1.0) k/uL Metamyelocytes # (Man) (0) k/uL Nucleated RBCs (0-0) /100 WBC Manual Slide Review Hypochromasia Macrocytosis PT (10.0-12.5) sec INR (<1.2) APTT (22.0-30.0) sec VBG pH 7.19 L* (7.31-7.41) VBG pCO2 29 L (37-51) mmHg VBG HCO3 11 L (24-28) mmol/L Sodium (137-145) mmol/L Potassium (3.5-5.1) mmol/L Chloride (98-107) mmol/L Carbon Dioxide (22-30) mmol/L Anion Gap mmol/L BUN (9-20) mg/dL Creatinine (0.66-1.25) mg/dL Est GFR (CKD-EPI)AfAm (>60 ml/min/1.73 sqM) Est GFR (CKD-EPI)NonAf (>60 ml/min/1.73 sqM) Glucose (74-99) mg/dL POC Glucose (mg/dL) (70-110) mg/dL POC Glu Superintendent Pipelines ID Plasma Lactic Acid Neymar (0.7-2.0) mmol/L Calcium (8.4-10.2) mg/dL Phosphorus (2.5-4.5) mg/dL Magnesium (1.6-2.3) mg/dL Total Bilirubin (0.2-1.3) mg/dL AST (17-59) U/L ALT (4-49) U/L Alkaline Phosphatase (38-126) U/L Troponin I (0.000-0.034) ng/mL Total Protein (6.3-8.2) g/dL Albumin (3.5-5.0) g/dL TSH (0.465-4.680) mIU/L Urine Color Colorless Urine Appearance Clear (Clear) Urine pH 5.0 (5.0-8.0) Ur Specific [place] 1.023 (1.001-1.035) Urine Protein Trace H (Negative) Urine Glucose (UA) 4+ H (Negative) Urine Ketones 2+ H (Negative) Urine Blood Trace H (Negative) Urine Nitrite Negative (Negative) Urine Bilirubin Negative (Negative) Urine Urobilinogen <2.0 (<2.0) mg/dL Ur Leukocyte Esterase Negative (Negative) Urine RBC <1 (0-5) /hpf Urine WBC 2 (0-5) /hpf Urine Bacteria Rare H (None) /hpf Hyaline Casts 6 H (0-2) /lpf Urine Mucus Rare H (None) /hpf Acetone, Qual (Negative) - EKG Data -: EKG Interpreted by Me (EKG is sinus tachycardia 122 TX 112 QRS 83 QTc 376) - Radiology Data Radiology results: report reviewed (Chest x-ray is negative for acute disease), image reviewed Disposition Clinical Impression: Intractable nausea and vomiting, DKA, type 1, Diabetic ketoacidosis, Hyperkalemia, Lactic acidosis Disposition: [facility] Condition: Critical Is patient prescribed a controlled substance at d/c from ED?: No Time of Disposition: 22:30
[2024-08-05 20:34] LABS: Glucose,Whole Blood >600 mg/dL (70-110)
[2024-08-05] MEDS: SODIUM CHLORIDE 0.9% 1,000 ML IV STA (20:38)
[2024-08-05 21:09] LABS: INR 0.9 (<1.2); Partial Thromboplastin Time 23.6 sec (22.0-30.0)
[2024-08-05 21:12] LABS: HCT 53.6 % (39.0-53.0); HGB 14.2 gm/dL (13.0-17.5); Hypochromasia Marked; MCH 29.3 pg (25.0-35.0); MCHC 26.6 g/dL (31.0-37.0); Macrocytosis Marked; Mean Platelet Volume 9.7; Platelet Count 501 k/uL (150-450); RBC 4.85 m/uL (4.30-5.90); RDW 14.3 % (11.5-15.5); WBC 27.7 k/uL (3.8-10.6)
[2024-08-05 21:14] LABS: MCV 110.4 fL (80.0-100.0)
[2024-08-05 21:17] LABS: AST 24 U/L (17-59); African American GFR (CKD) 31 (>60 ml/min/1.73 sqM); Albumin 4.8 g/dL (3.5-5.0); Alkaline Phosphatase 253 U/L (38-126); Anion Gap 36 mmol/L; Blood Urea Nitrogen 61 mg/dL (9-20); Chloride 90 mmol/L (98-107); Non-African American GFR(CKD) 27 (>60 ml/min/1.73 sqM); Phosphorus 7.2 mg/dL (2.5-4.5); Sodium 133 mmol/L (137-145); Total Bilirubin 0.5 mg/dL (0.2-1.3); Total Protein 7.5 g/dL (6.3-8.2)
[2024-08-05 21:39] LABS: Band Neutrophils % 8 %; Lymphocytes # (M) 2.77 k/uL (1.0-4.8); Metamyelocytes # (M) 0.83 k/uL (0); Metamyelocytes % 3 %; Monocytes # (M) 1.39 k/uL (0-1.0); Neutrophils % (M) 74 %; Nucleated Red Blood Cells 0 /100 WBC (0-0); Total Cells Counted 200
[2024-08-05 21:41] LABS: Potassium 6.7 mmol/L (3.5-5.1)
[2024-08-05 21:42] LABS: ALT 35 U/L (4-49); Carbon Dioxide 7 mmol/L (22-30)
[2024-08-05 22:05] LABS: Glucose 1381 mg/dL (74-99)
[2024-08-05] MEDS ORDERED: NALOXONE 0.4 MG/ML 1 ML VIAL IV PRN (22:16)
[2024-08-05] MEDS ORDERED: DEXTROSE 50% SYRINGE 50 ML IVP PRN ×4 (22:16→23:55)
[2024-08-05 22:36] LABS: Appearance,Urine Clear (Clear); Bacteria,Urine Rare /hpf; Bilirubin,Urine Negative (Negative); Blood,Urine Trace (Negative); Color,Urine Colorless; Glucose,Urine (UA) 4+ (Negative); Hyaline Casts,Urine 6 /lpf (0-2); Leukocyte Esterase,Urine Negative (Negative); Mucus,Urine Rare /hpf; Nitrite,Urine Negative (Negative); Protein,Urine Trace (Negative); RBC,Urine <1 /hpf (0-5); Specific Gravity,Urine 1.023 (1.001-1.035); Urobilinogen,Urine <2.0 mg/dL (<2.0); WBC,Urine 2 /hpf (0-5)
[2024-08-05] MEDS: SODIUM CHLORIDE 0.9% 1,000 ML IV SCH (22:38)
[2024-08-05] MEDS: INSULIN REGULAR 100 UNIT in SODIUM CHLORIDE 0.9% 100 ML IV SCH ×2 (22:39→23:59)
[2024-08-05] MEDS: INSULIN REGULAR BOLUS (FROM DRIP BAG) IV ONE (22:39)
[2024-08-05] MEDS: SODIUM CHLORIDE 0.9% 1,000 ML IV ONE (22:40)
[2024-08-05 22:43] LABS: Ketones,Urine 2+ (Negative)
[2024-08-05 22:44] LABS: VBG PH 7.19 (7.31-7.41)
[2024-08-05 23:04] LABS: Glucose,Whole Blood >600 mg/dL (70-110)
[2024-08-05] MEDS: SODIUM CHLORIDE 0.9% 500 ML 500 ML IV ONE (23:14)
[2024-08-05 23:54] LABS: Glucose,Whole Blood 529 mg/dL (70-110)
[2024-08-05 23:55] LABS: Influenza A Not Detected (Not Detectd); Influenza B Not Detected (Not Detectd); RSV Not Detected (Not Detectd)
[2024-08-05] MEDS ORDERED: Magnesium Replacement Protocol 1 EACH MISC MISCELLANE PRN (23:55)
[2024-08-05] MEDS ORDERED: Potassium Replacement Protocol 1 EACH MISC MISCELLANE PRN (23:55)
--- NOTE | 2024-08-06 00:24 | XR ---
EXAM: XR Chest, 1 View CLINICAL HISTORY: ITS.REASON XR Reason: sob TECHNIQUE: Frontal view of the chest. COMPARISON: Prior chest x-ray from May 26, 2024. FINDINGS: Lungs: Mild peribronchial thickening of the central bronchi. Hyperinflation lungs with flattening the diaphragms. No consolidation. Pleural space: Unremarkable. No pneumothorax. Heart: Unremarkable. No cardiomegaly. Mediastinum: Unremarkable. Normal mediastinal contour. Bones/joints: Unremarkable. No acute fracture. IMPRESSION: Bronchitis, which may be of infectious or inflammatory etiologies. No consolidation or pleural effusion.
[2024-08-06 00:52] LABS: African American GFR (CKD) 51 (>60 ml/min/1.73 sqM); Anion Gap 27 mmol/L; Blood Urea Nitrogen 56 mg/dL (9-20); Carbon Dioxide 11 mmol/L (22-30); Chloride 109 mmol/L (98-107); Non-African American GFR(CKD) 44 (>60 ml/min/1.73 sqM); Potassium 4.6 mmol/L (3.5-5.1); Sodium 147 mmol/L (137-145)
[2024-08-06 00:55] LABS: Glucose 520 mg/dL (74-99)
[2024-08-06] MEDS: SODIUM CHLORIDE 0.9% 1,000 ML IV SCH (00:55)
[2024-08-06 01:13] LABS: Glucose,Whole Blood 311 mg/dL (70-110)
[2024-08-06 02:00] LABS: Glucose,Whole Blood 208 mg/dL (70-110)
[2024-08-06] MEDS ORDERED: ALBUTEROL HFA INHALER INHALATION PRN (02:09)
--- NOTE | 2024-08-06 02:13 | P.CNPUL ---
History of Present Illness Consult date: 08/06/24 Requesting physician: Go Lang Reason for consult: other (DKA) Chief complaint: Nausea vomiting, high blood sugars History of present illness: Patient is a 34-year-old male with past medical history significant for type 1 diabetes mellitus, medication noncompliance, diabetic neuropathy, and gastroparesis. He was just hospitalized late June, for diabetic ketoacidosis. His primary care provider is Dr. Martinez. Patient returns to the emergency department late last night with a chief complaint of elevated blood sugars followed by nausea and vomiting. Workup in the emergency department consistent with diabetic ketoacidosis with a blood glucose 1381, serum bicarb 7, anion gap 36, and ketone positive. VBG with a pH of 7.19, pCO2 29. Potassium was severely elevated 6.7 and is currently down to 4.6. Appears to have sustained acute kidney injury. Further workup in the ED includes a CBC with a WBC count 27.7, hemoglobin 14.2, hematocrit 53.6, platelets 501. Most recent electrolytes with a sodium 147, potassium 4.6, chloride 109, serum bicarb up to 11, anion gap 27, BUN 56, creatinine down to 1.94, glucose 520. UA were unremarkable for infection. Chest x-ray showing mild peribronchial thickening of the central bronchi. No focal consolidations. He was started on the DKA protocol and admitted to the intensive care unit. Patient currently being evaluated in room 258. Alert and oriented. Nontachypneic. On room air. Remains tachycardic with a heart rate in the 130s beats per minute. Blood pressure is normotensive. Denies any infectious-like symptoms or sick contacts. Denies fevers/chills. Denies rhinorrhea, sore throat, cough, sputum production, chest pain. Viral screen negative for influenza, RSV, COVID. Patient states that he has been compliant with his insulin regiment. States that his long- acting insulin was recently adjusted to 10 units twice daily. His blood sugars have been running high for several days and yesterday developed severe nausea and vomiting. This is subsided, and he wants to try some ice chips. Denies abdominal pain, diarrhea, hematemesis, melena, hematochezia. Patient continues on the DKA protocol. Insulin is infusing at 4 units/h. Normal saline continues at 200 mL/h. Most recent [id number] blood sugar 311. Review of Systems Constitutional: Reports poor appetite, Denies chills, Denies fatigue, Denies fever, Denies sweats, Denies weight gain, Denies weight loss Cardiovascular: Denies chest pain, Denies leg edema, Denies lightheadedness, Denies orthopnea, Denies palpitations, Denies paroxysmal nocturnal dyspnea, Denies syncope Respiratory: Denies congestion, Denies cough, Denies cough with sputum, Denies hemoptysis Gastrointestinal: Denies abdominal pain, Denies coffee ground emesis, Denies diarrhea, Denies hematemesis, Denies melena, Denies nausea, Denies vomiting Genitourinary: Denies dysuria Musculoskeletal: Denies limitation of motion Integumentary: Denies rash, Denies sores Neurological: Denies seizures, Denies syncope Psychiatric: Reports anxiety, Reports depression, Denies suicidal ideation Past Medical History Past Medical History: Asthma, Diabetes Mellitus, Hyperlipidemia, Hypertension, Osteoarthritis (OA) Additional Past Medical History / Comment(s): IDDM type I, diabetic gastroparesis, neuropathy bilateral hands/fingers, migraines, arthrtitis fingers/knees, past R hand and L femur fractures. Previous DKA History of Any Multi-Drug Resistant Organisms: MRSA Date of last positivie culture/infection: 04/26/2014 MDRO Source:: Face Past Surgical History: Ear Surgery, Orthopedic Surgery Additional Past Surgical History / Comment(s): R hand surgery d/t fracture- pinned and pins since removed, L leg femur fracture with pin that eventually was removed, bilateral myringotomy with tubes/ear drum repairs.; Left pinky removal Past Anesthesia/Blood Transfusion Reactions: No Reported Reaction Past Psychological History: Anxiety, Bipolar, Depression Additional Psychological History / Comment(s): Pt states he lives with spouse. Smoking Status: Current every day smoker Past Alcohol Use History: None Reported Additional Past Alcohol Use History / Comment(s): Pt states he started smoking at 5 years old. Past Drug Use History: Marijuana Additional Drug Use History / Comment(s): Occasional marijuana use. - Past Family History Father Family Medical History: Hyperlipidemia, Hypertension, Myocardial Infarction ([place]) Mother Family Medical History: COPD Additional Family Medical History / Comment(s): home O2, Brother(s) Family Medical History: No Reported History Medications and Allergies Home Medications Medication Instructions Recorded Confirmed Type Insulin Aspart [NovoLOG] 10 units SQ AC-TID 03/02/24 06/29/24 History Insulin Glulisine [Apidra] 31 unit SQ HS 03/02/24 06/29/24 History lisinopriL [Zestril] 5 mg PO DAILY #30 tab 07/02/24 Rx Allergies Allergy/AdvReac Type Severity Reaction Status Date / Time latex Allergy Rash/Hives Verified 08/05/24 20:10 Physical Exam Vitals: Vital Signs Temp Pulse Resp BP Pulse Ox 08/06/24 01:00 130 H 22 134/87 97 08/06/24 00:00 97.6 F 135 H 20 129/88 100 08/05/24 23:48 131 H 20 129/88 99 08/05/24 23:30 129 H 18 136/90 100 08/05/24 23:18 97.0 F L 129 H 22 136/90 100 08/05/24 23:00 126 H 21 108/93 100 08/05/24 22:30 97.0 F L 138 H 23 124/73 100 08/05/24 21:49 128 H 20 128/71 99 08/05/24 20:07 97.5 F L 121 H 20 101/67 100 Intake and Output 08/05/24 08/05/24 08/06/24 14:59 22:59 06:59 Intake Total 411.087 Output Total 575 Balance -163.913 Intake: Intake, IV Titration 411.087 Amount Insulin Regular 100 unit 11.087 In Sodium Chloride 0.9% 100 ml @ 0.1 UNITS/KG/HR 7.559 mls/hr IV .[id number] [facility] Rx#:[id number] Sodium Chloride 0.9% 1, 400 000 ml @ 200 mls/hr IV . Q5H [facility] Rx#:[id number] Output: Urine 575 Other: Voiding Method Urinal # Voids 1 Weight 74.843 kg 74.843 kg GENERAL EXAM: Alert, 34-year-old white male, comfortable in no apparent distress. HEAD: Normocephalic and atraumatic EYES: Normal reaction of pupils, equal size. NOSE: Clear with pink turbinates. THROAT: No erythema or exudates. NECK: No masses, no JVD. CHEST: No chest wall deformity. LUNGS: Equal air entry with no crackles, wheeze, rhonchi or dullness. On room air. No conversational dyspnea or accessory muscle use. No Kussmaul breathing pattern. CVS: S1 and S2 normal with no audible murmur, regular rhythm. No extra heart sounds. Tachycardic. ABDOMEN: No hepatosplenomegaly, active bowel sounds, no guarding or rigidity. SPINE: No scoliosis or deformity SKIN: No rashes CENTRAL NERVOUS SYSTEM: No focal deficits, tone is normal in all 4 extremities. EXTREMITIES: There is no peripheral edema, clubbing, or cyanosis. Peripheral pulses are intact. Results - Laboratory Findings CBC and BMP: 08/05/24 20:42 08/06/24 00:13 PT/INR, D-dimer PT 10.0 sec (10.0-12.5) 08/05/24 20:42 INR 0.9 (<1.2) 08/05/24 20:42 Abnormal lab findings: Abnormal Labs 08/05/24 08/05/24 08/05/24 20:32 20:42 20:42 WBC 27.7 H Hct 53.6 H MCV 110.4 H D MCHC 26.6 L Plt Count 501 H Neutrophils # (Manual) 22.70 H Monocytes # (Manual) 1.39 H Metamyelocytes # (Man) 0.83 H Macrocytosis Marked A VBG pH VBG pCO2 VBG HCO3 Sodium 133 L Potassium 6.7 H* Chloride 90 L Carbon Dioxide 7 L* BUN 61 H Creatinine 2.88 H Glucose 1381 H* POC Glucose (mg/dL) >600 H* Plasma Lactic Acid Neymar Phosphorus 7.2 H Magnesium 3.0 H Alkaline Phosphatase 253 H Urine Protein Urine Glucose (UA) Urine Ketones Urine Blood Urine Bacteria Hyaline Casts Urine Mucus 08/05/24 08/05/24 08/05/24 20:42 22:12 22:15 WBC Hct MCV MCHC Plt Count Neutrophils # (Manual) Monocytes # (Manual) Metamyelocytes # (Man) Macrocytosis VBG pH 7.19 L* VBG pCO2 29 L VBG HCO3 11 L Sodium Potassium Chloride Carbon Dioxide BUN Creatinine Glucose POC Glucose (mg/dL) Plasma Lactic Acid Neymar 9.5 H* Phosphorus Magnesium Alkaline Phosphatase Urine Protein Trace H Urine Glucose (UA) 4+ H Urine Ketones 2+ H Urine Blood Trace H Urine Bacteria Rare H Hyaline Casts 6 H Urine Mucus Rare H 08/05/24 08/05/24 08/06/24 23:02 23:52 00:13 WBC Hct MCV MCHC Plt Count Neutrophils # (Manual) Monocytes # (Manual) Metamyelocytes # (Man) Macrocytosis VBG pH VBG pCO2 VBG HCO3 Sodium 147 H Potassium Chloride 109 H Carbon Dioxide 11 L BUN 56 H Creatinine 1.94 H Glucose 520 H* POC Glucose (mg/dL) >600 H* 529 H* Plasma Lactic Acid Neymar Phosphorus Magnesium Alkaline Phosphatase Urine Protein Urine Glucose (UA) Urine Ketones Urine Blood Urine Bacteria Hyaline Casts Urine Mucus 08/06/24 01:11 WBC Hct MCV MCHC Plt Count Neutrophils # (Manual) Monocytes # (Manual) Metamyelocytes # (Man) Macrocytosis VBG pH VBG pCO2 VBG HCO3 Sodium Potassium Chloride Carbon Dioxide BUN Creatinine Glucose POC Glucose (mg/dL) 311 H Plasma Lactic Acid Neymar Phosphorus Magnesium Alkaline Phosphatase Urine Protein Urine Glucose (UA) Urine Ketones Urine Blood Urine Bacteria Hyaline Casts Urine Mucus - Diagnostic Findings Chest x-ray: image reviewed Assessment and Plan Assessment: Acute diabetic ketoacidosis, blood glucose 1381, serum bicarb 7, anion gap 36, and ketone positive. Severe anion gap metabolic acidosis, secondary lactic acidosis and above Severe hyperkalemia, improved Acute kidney injury Acute leukocytosis, likely reactive Diabetes mellitus type 1 History of diabetic neuropathy History of medication noncompliance History of chronic bronchial asthma, stable Chronic ongoing tobacco dependence History of anxiety/depression History of polysubstance abuse Plan: Continue on the DKA protocol Continue insulin infusion Continue electrolytes every 4 hours Check Hemoglobin A1c Patient has history of poorly controlled diabetes and medication noncompliance Chest x-ray showing mild peribronchial thickening of the central bronchi. No focal consolidations Viral screen negative for influenza, RSV, COVID Trend lactic acid Patient is admitted to the intensive care unit until DKA is resolved I have personally seen and examined the patient, performed the documentation and the assessment and plan as written. Number of minutes spent on the visit:20 This dictation was produced using [email or web address] dictation software please excuse grammatical errors Time with Patient: Greater than 30
[2024-08-06] MEDS: D5-0.45% NACL WITH KCL 20MEQ/L 1,000 ML IV SCH (02:34)
[2024-08-06 03:11] LABS: Glucose,Whole Blood 190 mg/dL (70-110)
[2024-08-06 04:00] LABS: Glucose,Whole Blood 183 mg/dL (70-110)
[2024-08-06 05:08] LABS: Glucose,Whole Blood 176 mg/dL (70-110)
[2024-08-06 05:56] LABS: Glucose,Whole Blood 216 mg/dL (70-110)
[2024-08-06 06:11] LABS: Basophils % (A) 0 %; Eosinophils % (A) 0 %; HCT 43.2 % (39.0-53.0); HGB 13.3 gm/dL (13.0-17.5); Lymphocytes # (A) 1.2 k/uL (1.0-4.8); Lymphocytes % (A) 6 %; MCH 28.6 pg (25.0-35.0); MCHC 30.8 g/dL (31.0-37.0); Mean Platelet Volume 8.3; Monocytes # (A) 1.8 k/uL (0-1.0); Monocytes % (A) 8 %; Neutrophils # (A) 17.8 k/uL (1.3-7.7); Neutrophils % (A) 84 %; Platelet Count 465 k/uL (150-450); RBC 4.65 m/uL (4.30-5.90); RDW 14.7 % (11.5-15.5); WBC 21.2 k/uL (3.8-10.6)
[2024-08-06 06:16] LABS: MCV 92.8 fL (80.0-100.0)
[2024-08-06 06:46] LABS: ALT 19 U/L (4-49); AST 16 U/L (17-59); African American GFR (CKD) >90 (>60 ml/min/1.73 sqM); Albumin 3.9 g/dL (3.5-5.0); Alkaline Phosphatase 207 U/L (38-126); Anion Gap 13 mmol/L; Blood Urea Nitrogen 46 mg/dL (9-20); Calcium 8.8 mg/dL (8.4-10.2); Carbon Dioxide 23 mmol/L (22-30); Chloride 114 mmol/L (98-107); Glucose 219 mg/dL (74-99); Lipase 57 U/L (23-300); Magnesium 2.4 mg/dL (1.6-2.3); Non-African American GFR(CKD) 79 (>60 ml/min/1.73 sqM); Phosphorus 3.8 mg/dL (2.5-4.5); Potassium 4.1 mmol/L (3.5-5.1); Sodium 150 mmol/L (137-145); Total Bilirubin 0.6 mg/dL (0.2-1.3); Total Protein 6.5 g/dL (6.3-8.2)
[2024-08-06 07:01] LABS: Glucose,Whole Blood 166 mg/dL (70-110)
[2024-08-06 08:00] LABS: Glucose,Whole Blood 175 mg/dL (70-110)
[2024-08-06 09:17] LABS: Glucose,Whole Blood 167 mg/dL (70-110)
[2024-08-06 09:53] LABS: Glucose,Whole Blood 168 mg/dL (70-110)
[2024-08-06 10:35] LABS: African American GFR (CKD) >90 (>60 ml/min/1.73 sqM); Anion Gap 11 mmol/L; Blood Urea Nitrogen 38 mg/dL (9-20); Calcium 8.5 mg/dL (8.4-10.2); Carbon Dioxide 23 mmol/L (22-30); Chloride 114 mmol/L (98-107); Glucose 171 mg/dL (74-99); Magnesium 2.3 mg/dL (1.6-2.3); Non-African American GFR(CKD) >90 (>60 ml/min/1.73 sqM); Potassium 3.9 mmol/L (3.5-5.1); Sodium 148 mmol/L (137-145)
[2024-08-06 11:43] VITALS: BMI 19.1
[2024-08-06] MEDS: lisinopriL 5 MG TAB PO SCH (11:51)
[2024-08-06] MEDS: BUTALB/APAP/CAFF 50-325-40MG TAB PO PRN (11:51)
[2024-08-06] MEDS: METOPROLOL TARTRATE 25 MG TAB PO SCH (11:52)
[2024-08-06 11:54] LABS: Glucose,Whole Blood 127 mg/dL (70-110)
--- NOTE | 2024-08-06 13:03 | P.HPIM ---
History of Present Illness Is a 54-year-old male admitted for diverticular acidosis came in with elevated blood sugars abdominal discomfort nausea vomiting. Appeared to be in DKA with highly elevated anion gap of 36 and bicarbonate of 7. As per the patient pat ient is compliant with his medications although as per the family members patient may have been noncompliant with medications. Patient usually uses 20 units of long-acting insulin along with sliding scale with each meal. Patient has leukocytosis although septic workup is negative patient does not have any fever chills patient has highly elevated white count of 25,000 patient was started on DKA protocol present anion gap of 11. Patient is in acute renal failure creatinine going up to about 2.5. Creatinine significantly improved with aggressive fluid resuscitation. REVIEW OF SYSTEMS: All other systems are negative except those mentioned in the HPI PHYSICAL EXAMINATION: GENERAL: The patient is alert and oriented x3, not in any acute distress. Well developed, well nourished. HEENT: Pupils are round and equally reacting to light. EOMI. No scleral icterus. No conjunctival pallor. Normocephalic, atraumatic. No pharyngeal erythema. No thyromegaly. CARDIOVASCULAR: S1 and S2 present. No murmurs, rubs, or gallops. PULMONARY: Chest is clear to auscultation, no wheezing or crackles. ABDOMEN: Soft, nontender, nondistended, normoactive bowel sounds. No palpable organomegaly. MUSCULOSKELETAL: No joint swelling or deformity. EXTREMITIES: No cyanosis, clubbing, or pedal edema. NEUROLOGICAL: Gross neurological examination did not reveal any focal deficits. SKIN: No rashes. Assessment and plan -Diverticular acidosis: Anion gap resolved patient will be resumed on his long-acting insulin along with sliding scale patient will be discharged on Lantus instead of upon discharge. Patient will be transition to half-normal saline patient was started on diet -Acute renal failure secondary to DKA prerenal azotemia, vasomotor nephropathy improved with IV fluids -Uncontrolled hide elevated blood sugars secondary to noncompliance of medication patient blood sugars were 11,000 yesterday which improved at this time anion gap resolved -Severe hyperkalemia secondary to DKA improved at this time -Diabetic neuropathy -Continue nicotine use -Possible polysubstance abuse will obtain urine drug screen DVT prophylaxis: Early ambulation patient possibly can be discharged tomorrow if his blood sugars stay stable with subcutaneous insulin that will be resumed today Past Medical History Past Medical History: Asthma, Diabetes Mellitus, Hyperlipidemia, Hypertension, Osteoarthritis (OA) Additional Past Medical History / Comment(s): IDDM type I, diabetic gastroparesis, neuropathy bilateral hands/fingers, migraines, arthrtitis fingers/knees, past R hand and L femur fractures. Previous DKA History of Any Multi-Drug Resistant Organisms: MRSA Date of last positivie culture/infection: 04/26/2014 MDRO Source:: Face Past Surgical History: Ear Surgery, Orthopedic Surgery Additional Past Surgical History / Comment(s): R hand surgery d/t fracture- pinned and pins since removed, L leg femur fracture with pin that eventually was removed, bilateral myringotomy with tubes/ear drum repairs.; Left pinky removal Past Anesthesia/Blood Transfusion Reactions: No Reported Reaction Past Psychological History: Anxiety, Bipolar, Depression Additional Psychological History / Comment(s): Pt states he lives with spouse. Smoking Status: Current every day smoker Past Alcohol Use History: None Reported Additional Past Alcohol Use History / Comment(s): Pt states he started smoking at 5 years old. Past Drug Use History: Marijuana Additional Drug Use History / Comment(s): Occasional marijuana use. - Past Family History Father Family Medical History: Hyperlipidemia, Hypertension, Myocardial Infarction (RI) Mother Family Medical History: COPD Additional Family Medical History / Comment(s): home O2, Brother(s) Family Medical History: No Reported History Medications and Allergies Home Medications Medication Instructions Recorded Confirmed Type Insulin Aspart [NovoLOG] 10 units SQ AC-TID 03/02/24 08/06/24 History Insulin Glulisine [Apidra] 31 unit SQ HS 03/02/24 08/06/24 History Allergies Allergy/AdvReac Type Severity Reaction Status Date / Time latex Allergy Rash/Hives Verified 08/06/24 10:31 Physical Exam Vitals: Vital Signs Temp Pulse Resp BP Pulse Ox 08/06/24 12:00 97.7 F 115 H 19 134/82 97 08/06/24 11:00 116 H 85 H 169/101 96 08/06/24 10:00 121 H 18 143/84 95 08/06/24 09:00 126 H 17 149/86 98 08/06/24 08:00 97.5 F L 134 H 28 H 139/87 99 08/06/24 07:00 134 H 17 164/100 97 08/06/24 06:00 125 H 21 158/103 96 08/06/24 05:00 130 H 24 165/106 95 08/06/24 04:00 97.7 F 122 H 12 162/106 96 08/06/24 03:00 138 H 19 145/90 96 08/06/24 02:00 129 H 12 142/88 97 08/06/24 01:00 130 H 22 134/87 97 08/06/24 00:00 97.6 F 135 H 20 129/88 100 08/05/24 23:48 131 H 20 129/88 99 08/05/24 23:30 129 H 18 136/90 100 08/05/24 23:18 97.0 F L 129 H 22 136/90 100 08/05/24 23:00 126 H 21 108/93 100 08/05/24 22:30 97.0 F L 138 H 23 124/73 100 08/05/24 21:49 128 H 20 128/71 99 08/05/24 20:07 97.5 F L 121 H 20 101/67 100 Intake and Output 08/05/24 08/06/24 08/06/24 22:59 06:59 14:59 Intake Total 3788.700 1106.816 Output Total 900 700 Balance 311.087 661.816 Intake: IV 750 D5-0.45% NaCl with KCl 750 20Meq/l 1,000 ml @ 150 mls/hr IV .[id number] [facility] Rx# :[id number] Intake, IV Titration 1211.087 189.816 Amount D5-0.45% NaCl with KCl 600 150 20Meq/l 1,000 ml @ 150 mls/hr IV .[id number] [facility] Rx# :[id number] Insulin Regular 100 unit 11.087 39.816 In Sodium Chloride 0.9% 100 ml @ 0.1 UNITS/KG/HR 7.559 mls/hr IV .[id number] [facility] Rx#:[id number] Sodium Chloride 0.9% 1, 600 000 ml @ 200 mls/hr IV . Q5H [facility] Rx#:[id number] Oral 422 Output: Urine 900 700 Other: Voiding Method Urinal Urinal # Voids 1 1 Weight 74.843 kg 60.6 kg 60.6 kg Results CBC & Chem 7: 08/06/24 05:39 08/06/24 09:45 Labs: Abnormal Lab Results - Last 24 Hours (Table) 08/05/24 08/05/24 08/05/24 Range/Units 20:32 20:42 20:42 WBC 27.7 H (3.8-10.6) k/uL Hct 53.6 H (39.0-53.0) % MCV 110.4 H D (80.0-100.0) fL MCHC 26.6 L (31.0-37.0) g/dL Plt Count 501 H (150-450) k/uL Neutrophils # (1.3-7.7) k/uL Neutrophils # (Manual) 22.70 H (1.3-7.7) k/uL Monocytes # (0-1.0) k/uL Monocytes # (Manual) 1.39 H (0-1.0) k/uL Metamyelocytes # (Man) 0.83 H (0) k/uL Macrocytosis Marked A VBG pH (7.31-7.41) VBG pCO2 (37-51) mmHg VBG HCO3 (24-28) mmol/L Sodium 133 L (137-145) mmol/L Potassium 6.7 H* (3.5-5.1) mmol/L Chloride 90 L (98-107) mmol/L Carbon Dioxide 7 L* (22-30) mmol/L BUN 61 H (9-20) mg/dL Creatinine 2.88 H (0.66-1.25) mg/dL Glucose 1381 H* (74-99) mg/dL POC Glucose (mg/dL) >600 H* (70-110) mg/dL Hemoglobin A1c (<=6.0) % Plasma Lactic Acid Neymar (0.7-2.0) mmol/L Phosphorus 7.2 H (2.5-4.5) mg/dL Magnesium 3.0 H (1.6-2.3) mg/dL AST (17-59) U/L Alkaline Phosphatase 253 H (38-126) U/L Urine Protein (Negative) Urine Glucose (UA) (Negative) Urine Ketones (Negative) Urine Blood (Negative) Urine Bacteria (None) /hpf Hyaline Casts (0-2) /lpf Urine Mucus (None) /hpf 08/05/24 08/05/24 08/05/24 Range/Units 20:42 22:12 22:15 WBC (3.8-10.6) k/uL Hct (39.0-53.0) % MCV (80.0-100.0) fL MCHC (31.0-37.0) g/dL Plt Count (150-450) k/uL Neutrophils # (1.3-7.7) k/uL Neutrophils # (Manual) (1.3-7.7) k/uL Monocytes # (0-1.0) k/uL Monocytes # (Manual) (0-1.0) k/uL Metamyelocytes # (Man) (0) k/uL Macrocytosis VBG pH 7.19 L* (7.31-7.41) VBG pCO2 29 L (37-51) mmHg VBG HCO3 11 L (24-28) mmol/L Sodium (137-145) mmol/L Potassium (3.5-5.1) mmol/L Chloride (98-107) mmol/L Carbon Dioxide (22-30) mmol/L BUN (9-20) mg/dL Creatinine (0.66-1.25) mg/dL Glucose (74-99) mg/dL POC Glucose (mg/dL) (70-110) mg/dL Hemoglobin A1c (<=6.0) % Plasma Lactic Acid Neymar 9.5 H* (0.7-2.0) mmol/L Phosphorus (2.5-4.5) mg/dL Magnesium (1.6-2.3) mg/dL AST (17-59) U/L Alkaline Phosphatase (38-126) U/L Urine Protein Trace H (Negative) Urine Glucose (UA) 4+ H (Negative) Urine Ketones 2+ H (Negative) Urine Blood Trace H (Negative) Urine Bacteria Rare H (None) /hpf Hyaline Casts 6 H (0-2) /lpf Urine Mucus Rare H (None) /hpf 08/05/24 08/05/24 08/06/24 Range/Units 23:02 23:52 00:13 WBC (3.8-10.6) k/uL Hct (39.0-53.0) % MCV (80.0-100.0) fL MCHC (31.0-37.0) g/dL Plt Count (150-450) k/uL Neutrophils # (1.3-7.7) k/uL Neutrophils # (Manual) (1.3-7.7) k/uL Monocytes # (0-1.0) k/uL Monocytes # (Manual) (0-1.0) k/uL Metamyelocytes # (Man) (0) k/uL Macrocytosis VBG pH (7.31-7.41) VBG pCO2 (37-51) mmHg VBG HCO3 (24-28) mmol/L Sodium 147 H (137-145) mmol/L Potassium (3.5-5.1) mmol/L Chloride 109 H (98-107) mmol/L Carbon Dioxide 11 L (22-30) mmol/L BUN 56 H (9-20) mg/dL Creatinine 1.94 H (0.66-1.25) mg/dL Glucose 520 H* (74-99) mg/dL POC Glucose (mg/dL) >600 H* 529 H* (70-110) mg/dL Hemoglobin A1c (<=6.0) % Plasma Lactic Acid Neymar (0.7-2.0) mmol/L Phosphorus (2.5-4.5) mg/dL Magnesium (1.6-2.3) mg/dL AST (17-59) U/L Alkaline Phosphatase (38-126) U/L Urine Protein (Negative) Urine Glucose (UA) (Negative) Urine Ketones (Negative) Urine Blood (Negative) Urine Bacteria (None) /hpf Hyaline Casts (0-2) /lpf Urine Mucus (None) /hpf 08/06/24 08/06/24 08/06/24 Range/Units 00:13 01:11 01:58 WBC (3.8-10.6) k/uL Hct (39.0-53.0) % MCV (80.0-100.0) fL MCHC (31.0-37.0) g/dL Plt Count (150-450) k/uL Neutrophils # (1.3-7.7) k/uL Neutrophils # (Manual) (1.3-7.7) k/uL Monocytes # (0-1.0) k/uL Monocytes # (Manual) (0-1.0) k/uL Metamyelocytes # (Man) (0) k/uL Macrocytosis VBG pH (7.31-7.41) VBG pCO2 (37-51) mmHg VBG HCO3 (24-28) mmol/L Sodium (137-145) mmol/L Potassium (3.5-5.1) mmol/L Chloride (98-107) mmol/L Carbon Dioxide (22-30) mmol/L BUN (9-20) mg/dL Creatinine (0.66-1.25) mg/dL Glucose (74-99) mg/dL POC Glucose (mg/dL) 311 H 208 H (70-110) mg/dL Hemoglobin A1c (<=6.0) % Plasma Lactic Acid Neymar 8.3 H* (0.7-2.0) mmol/L Phosphorus (2.5-4.5) mg/dL Magnesium (1.6-2.3) mg/dL AST (17-59) U/L Alkaline Phosphatase (38-126) U/L Urine Protein (Negative) Urine Glucose (UA) (Negative) Urine Ketones (Negative) Urine Blood (Negative) Urine Bacteria (None) /hpf Hyaline Casts (0-2) /lpf Urine Mucus (None) /hpf 08/06/24 08/06/24 08/06/24 Range/Units 03:10 03:58 05:07 WBC (3.8-10.6) k/uL Hct (39.0-53.0) % MCV (80.0-100.0) fL MCHC (31.0-37.0) g/dL Plt Count (150-450) k/uL Neutrophils # (1.3-7.7) k/uL Neutrophils # (Manual) (1.3-7.7) k/uL Monocytes # (0-1.0) k/uL Monocytes # (Manual) (0-1.0) k/uL Metamyelocytes # (Man) (0) k/uL Macrocytosis VBG pH (7.31-7.41) VBG pCO2 (37-51) mmHg VBG HCO3 (24-28) mmol/L Sodium (137-145) mmol/L Potassium (3.5-5.1) mmol/L Chloride (98-107) mmol/L Carbon Dioxide (22-30) mmol/L BUN (9-20) mg/dL Creatinine (0.66-1.25) mg/dL Glucose (74-99) mg/dL POC Glucose (mg/dL) 190 H 183 H 176 H (70-110) mg/dL Hemoglobin A1c (<=6.0) % Plasma Lactic Acid Neymar (0.7-2.0) mmol/L Phosphorus (2.5-4.5) mg/dL Magnesium (1.6-2.3) mg/dL AST (17-59) U/L Alkaline Phosphatase (38-126) U/L Urine Protein (Negative) Urine Glucose (UA) (Negative) Urine Ketones (Negative) Urine Blood (Negative) Urine Bacteria (None) /hpf Hyaline Casts (0-2) /lpf Urine Mucus (None) /hpf 08/06/24 08/06/24 08/06/24 Range/Units 05:39 05:39 05:39 WBC 21.2 H (3.8-10.6) k/uL Hct (39.0-53.0) % MCV (80.0-100.0) fL MCHC 30.8 L (31.0-37.0) g/dL Plt Count 465 H (150-450) k/uL Neutrophils # 17.8 H (1.3-7.7) k/uL Neutrophils # (Manual) (1.3-7.7) k/uL Monocytes # 1.8 H (0-1.0) k/uL Monocytes # (Manual) (0-1.0) k/uL Metamyelocytes # (Man) (0) k/uL Macrocytosis VBG pH (7.31-7.41) VBG pCO2 (37-51) mmHg VBG HCO3 (24-28) mmol/L Sodium 150 H (137-145) mmol/L Potassium (3.5-5.1) mmol/L Chloride 114 H (98-107) mmol/L Carbon Dioxide (22-30) mmol/L BUN 46 H (9-20) mg/dL Creatinine (0.66-1.25) mg/dL Glucose 219 H (74-99) mg/dL POC Glucose (mg/dL) (70-110) mg/dL Hemoglobin A1c 11.1 H (<=6.0) % Plasma Lactic Acid Neymar (0.7-2.0) mmol/L Phosphorus (2.5-4.5) mg/dL Magnesium 2.4 H (1.6-2.3) mg/dL AST 16 L (17-59) U/L Alkaline Phosphatase 207 H (38-126) U/L Urine Protein (Negative) Urine Glucose (UA) (Negative) Urine Ketones (Negative) Urine Blood (Negative) Urine Bacteria (None) /hpf Hyaline Casts (0-2) /lpf Urine Mucus (None) /hpf 08/06/24 08/06/24 08/06/24 Range/Units 05:55 07:00 07:58 WBC (3.8-10.6) k/uL Hct (39.0-53.0) % MCV (80.0-100.0) fL MCHC (31.0-37.0) g/dL Plt Count (150-450) k/uL Neutrophils # (1.3-7.7) k/uL Neutrophils # (Manual) (1.3-7.7) k/uL Monocytes # (0-1.0) k/uL Monocytes # (Manual) (0-1.0) k/uL Metamyelocytes # (Man) (0) k/uL Macrocytosis VBG pH (7.31-7.41) VBG pCO2 (37-51) mmHg VBG HCO3 (24-28) mmol/L Sodium (137-145) mmol/L Potassium (3.5-5.1) mmol/L Chloride (98-107) mmol/L Carbon Dioxide (22-30) mmol/L BUN (9-20) mg/dL Creatinine (0.66-1.25) mg/dL Glucose (74-99) mg/dL POC Glucose (mg/dL) 216 H 166 H 175 H (70-110) mg/dL Hemoglobin A1c (<=6.0) % Plasma Lactic Acid Neymar (0.7-2.0) mmol/L Phosphorus (2.5-4.5) mg/dL Magnesium (1.6-2.3) mg/dL AST (17-59) U/L Alkaline Phosphatase (38-126) U/L Urine Protein (Negative) Urine Glucose (UA) (Negative) Urine Ketones (Negative) Urine Blood (Negative) Urine Bacteria (None) /hpf Hyaline Casts (0-2) /lpf Urine Mucus (None) /hpf 08/06/24 08/06/24 08/06/24 Range/Units 09:16 09:45 09:52 WBC (3.8-10.6) k/uL Hct (39.0-53.0) % MCV (80.0-100.0) fL MCHC (31.0-37.0) g/dL Plt Count (150-450) k/uL Neutrophils # (1.3-7.7) k/uL Neutrophils # (Manual) (1.3-7.7) k/uL Monocytes # (0-1.0) k/uL Monocytes # (Manual) (0-1.0) k/uL Metamyelocytes # (Man) (0) k/uL Macrocytosis VBG pH (7.31-7.41) VBG pCO2 (37-51) mmHg VBG HCO3 (24-28) mmol/L Sodium 148 H (137-145) mmol/L Potassium (3.5-5.1) mmol/L Chloride 114 H (98-107) mmol/L Carbon Dioxide (22-30) mmol/L BUN 38 H (9-20) mg/dL Creatinine (0.66-1.25) mg/dL Glucose 171 H (74-99) mg/dL POC Glucose (mg/dL) 167 H 168 H (70-110) mg/dL Hemoglobin A1c (<=6.0) % Plasma Lactic Acid Neymar (0.7-2.0) mmol/L Phosphorus (2.5-4.5) mg/dL Magnesium (1.6-2.3) mg/dL AST (17-59) U/L Alkaline Phosphatase (38-126) U/L Urine Protein (Negative) Urine Glucose (UA) (Negative) Urine Ketones (Negative) Urine Blood (Negative) Urine Bacteria (None) /hpf Hyaline Casts (0-2) /lpf Urine Mucus (None) /hpf 08/06/24 Range/Units 11:53 WBC (3.8-10.6) k/uL Hct (39.0-53.0) % MCV (80.0-100.0) fL MCHC (31.0-37.0) g/dL Plt Count (150-450) k/uL Neutrophils # (1.3-7.7) k/uL Neutrophils # (Manual) (1.3-7.7) k/uL Monocytes # (0-1.0) k/uL Monocytes # (Manual) (0-1.0) k/uL Metamyelocytes # (Man) (0) k/uL Macrocytosis VBG pH (7.31-7.41) VBG pCO2 (37-51) mmHg VBG HCO3 (24-28) mmol/L Sodium (137-145) mmol/L Potassium (3.5-5.1) mmol/L Chloride (98-107) mmol/L Carbon Dioxide (22-30) mmol/L BUN (9-20) mg/dL Creatinine (0.66-1.25) mg/dL Glucose (74-99) mg/dL POC Glucose (mg/dL) 127 H (70-110) mg/dL Hemoglobin A1c (<=6.0) % Plasma Lactic Acid Neymar (0.7-2.0) mmol/L Phosphorus (2.5-4.5) mg/dL Magnesium (1.6-2.3) mg/dL AST (17-59) U/L Alkaline Phosphatase (38-126) U/L Urine Protein (Negative) Urine Glucose (UA) (Negative) Urine Ketones (Negative) Urine Blood (Negative) Urine Bacteria (None) /hpf Hyaline Casts (0-2) /lpf Urine Mucus (None) /hpf Thrombosis Risk Factor Assmnt - Choose All That Apply Any of the Below Risk Factors Present?: No Other Risk Factors: No Thrombosis Risk Factor Assessment Level: Very Low Risk
[2024-08-06] MEDS: INSULIN GLARGINE (LANTUS) 100 UNIT/ML SYR SQ SCH (13:45)
[2024-08-06] MEDS: SODIUM CHLORIDE 0.45% 1,000 ML IV SCH (13:51)
[2024-08-06 14:07] LABS: African American GFR (CKD) >90 (>60 ml/min/1.73 sqM); Anion Gap 12 mmol/L; Blood Urea Nitrogen 31 mg/dL (9-20); Calcium 8.6 mg/dL (8.4-10.2); Carbon Dioxide 24 mmol/L (22-30); Chloride 110 mmol/L (98-107); Glucose 144 mg/dL (74-99); Non-African American GFR(CKD) >90 (>60 ml/min/1.73 sqM); Potassium 3.9 mmol/L (3.5-5.1); Sodium 146 mmol/L (137-145)
[2024-08-06 16:57] LABS: Glucose,Whole Blood 327 mg/dL (70-110)
[2024-08-06] MEDS: INSULIN LISPRO (HumaLOG) 100 UNIT/ML 10 mL VL SQ SCH (17:03)
[2024-08-06 20:18] LABS: Glucose,Whole Blood 129 mg/dL (70-110)
[2024-08-07 01:46] LABS: Glucose,Whole Blood 264 mg/dL (70-110)
[2024-08-07 06:32] LABS: Glucose,Whole Blood 228 mg/dL (70-110)
[2024-08-07] MEDS: ACETAMINOPHEN TAB 325 MG TAB PO PRN (09:17)
[2024-08-07 10:48] LABS: HCT 39.9 % (39.6-50.0); HGB 12.8 g/dL (13.0-17.0); MCH 29.6 pg (27.0-32.0); MCHC 32.1 g/dL (32.0-37.0); MCV 92.1 FL (80.0-97.0); Mean Platelet Volume 11.6 FL (9.5-12.2); NRBC Per 100 WBC 0 X 10*3/uL (0.00-0.01); Platelet Count 388 X 10*3/uL (140-440); RBC 4.33 X 10*6/uL (4.40-5.60); RDW 15.1 % (11.5-14.5); WBC 16.37 X 10*3/uL (4.50-10.00)
[2024-08-07 11:13] LABS: Glucose,Whole Blood 282 mg/dL (70-110)
[2024-08-07 11:27] LABS: BUN/Creat Ratio 16.12 Ratio (12.00-20.00); Blood Urea Nitrogen 12.9 mg/dL (9.0-27.0); Calcium 8.9 mg/dL (8.7-10.3); Carbon Dioxide 26.5 mmol/L (21.6-31.8); Chloride 105 mmol/L (96-109); Glucose 233 mg/dL (70-110); Potassium 4.2 mmol/L (3.5-5.5); Sodium 144 mmol/L (135-145)
--- NOTE | 2024-08-07 12:35 | P.PN ---
"Subjective Progress Note Date: 08/07/24 Patient is a 34-year-old male with past medical history significant for type 1 diabetes mellitus, medication noncompliance, diabetic neuropathy, and gastroparesis. He was just hospitalized late June, for diabetic ketoacidosis. His primary care provider is Dr. Martinez. Patient returns to the emergency department late last night with a chief complaint of elevated blood sugars followed by nausea and vomiting. Workup in the emergency department consistent with diabetic ketoacidosis with a blood glucose 1381, serum bicarb 7, anion gap 36, and ketone positive. VBG with a pH of 7.19, pCO2 29. Potassium was severely elevated 6.7 and is currently down to 4.6. Appears to have sustained acute kidney injury. Further workup in the ED includes a CBC with a WBC count 27.7, hemoglobin 14.2, hematocrit 53.6, platelets 501. Most recent electrolytes with a sodium 147, potassium 4.6, chloride 109, serum bicarb up to 11, anion gap 27, BUN 56, creatinine down to 1.94, glucose 520. UA were unremarkable for infection. Chest x-ray showing mild peribronchial thickening of the central bronchi. No focal consolidations. He was started on the DKA protocol and admitted to the intensive care unit. Patient currently being evaluated in room 258. Alert and oriented. Nontachypneic. On room air. Re manjula tachycardic with a heart rate in the 130s beats per minute. Blood pressure is normotensive. Denies any infectious-like symptoms or sick contacts. Denies fevers/chills. Denies rhinorrhea, sore throat, cough, sputum production, chest pain. Viral screen negative for influenza, RSV, COVID. Patient states that he has been compliant with his insulin regiment. States that his long- acting insulin was recently adjusted to 10 units twice daily. His blood sugars have been running high for several days and yesterday developed severe nausea and vomiting. This is subsided, and he wants to try some ice chips. Denies abdominal pain, diarrhea, hematemesis, melena, hematochezia. Patient continues on the DKA protocol. Insulin is infusing at 4 units/h. Normal saline continues at 200 mL/h. Most recent [id number] blood sugar 311. The patient is seen today August 07, 2024 in follow-up on the regular medical floor. He is awake and alert in no acute distress. Feeling quite a bit better today compared to yesterday. He is resting comfortably in bed. He is maintaining good O2 saturations in the 90s on room air. He has half-normal saline at 75 mL/h. He has been transition to Lantus and Humalog sliding scale. White count 16.3. Hemoglobin 12.8. Platelets 388. Sodium 144. Potassium 4.2. Bicarb 26. BUN 13. Creatinine 0.8. Glucose 233. Objective - Vital Signs Vital signs: Vital Signs Temp 99 F 08/07/24 07:02 Pulse 75 08/07/24 07:02 Resp 18 08/07/24 07:02 BP 132/84 08/07/24 07:02 Pulse Ox 96 08/07/24 07:02 FiO2 Intake & Output 08/06/24 08/07/24 08/07/24 18:59 06:59 18:59 Intake Total 1815.155 Output Total 1600 1960 Balance 215.155 -1960 Weight 60.6 kg 61 kg Intake: IV 1200 D5-0.45% NaCl with KCl 750 20Meq/l 1,000 ml @ 150 mls/hr IV .[id number] [facility] Rx# :[id number] Sodium Chloride 0.45% 1, 450 000 ml @ 75 mls/hr IV . [id number] [facility] Rx#:[id number] Intake, IV Titration 193.155 Amount D5-0.45% NaCl with KCl 150 20Meq/l 1,000 ml @ 150 mls/hr IV .[id number] [facility] Rx# :[id number] Insulin Regular 100 unit 43.155 In Sodium Chloride 0.9% 100 ml @ 0.1 UNITS/KG/HR 7.559 mls/hr IV .[id number] [facility] Rx#:[id number] Oral 422 Output: Urine 1600 1960 Other: Voiding Method Urinal Urinal # Voids 1 - Exam GENERAL EXAM: Alert, pleasant 34-year-old male, on room air, comfortable in no apparent distress. HEAD: Normocephalic and atraumatic EYES: Normal reaction of pupils, equal size. NOSE: Clear with pink turbinates. THROAT: No erythema or exudates. NECK: No masses, no JVD. CHEST: No chest wall deformity. LUNGS: Equal air entry with no crackles, wheeze, rhonchi or dullness. CVS: S1 and S2 normal with no audible murmur, regular rhythm. No extra heart sounds. ABDOMEN: No hepatosplenomegaly, active bowel sounds, no guarding or rigidity. SPINE: No scoliosis or deformity SKIN: No rashes CENTRAL NERVOUS SYSTEM: No focal deficits, tone is normal in all 4 extremities. EXTREMITIES: There is no peripheral edema, clubbing, or cyanosis. Peripheral pulses are intact. - Labs CBC & Chem 7: 08/07/24 05:46 08/07/24 05:46 Labs: Abnormal Lab Results - Last 24 Hours (Table) 08/06/24 08/06/24 08/06/24 Range/Units 13:14 16:56 20:17 WBC (4.50-10.00) X 10*3/uL RBC (4.40-5.60) X 10*6/uL Hgb (13.0-17.0) g/dL RDW (11.5-14.5) % Sodium 146 H (137-145) mmol/L Chloride 110 H (98-107) mmol/L Anion Gap (4.00-12.00) mmol/L BUN 31 H (9-20) mg/dL Glucose 144 H (74-99) mg/dL POC Glucose (mg/dL) 327 H 129 H (70-110) mg/dL 08/07/24 08/07/24 08/07/24 Range/Units 01:44 05:46 05:46 WBC 16.37 H (4.50-10.00) X 10*3/uL RBC 4.33 L (4.40-5.60) X 10*6/uL Hgb 12.8 L (13.0-17.0) g/dL RDW 15.1 H (11.5-14.5) % Sodium (137-145) mmol/L Chloride (98-107) mmol/L Anion Gap 12.50 H (4.00-12.00) mmol/L BUN (9-20) mg/dL Glucose 233 H (74-99) mg/dL POC Glucose (mg/dL) 264 H (70-110) mg/dL 08/07/24 08/07/24 Range/Units 06:31 11:11 WBC (4.50-10.00) X 10*3/uL RBC (4.40-5.60) X 10*6/uL Hgb (13.0-17.0) g/dL RDW (11.5-14.5) % Sodium (137-145) mmol/L Chloride (98-107) mmol/L Anion Gap (4.00-12.00) mmol/L BUN (9-20) mg/dL Glucose (74-99) mg/dL POC Glucose (mg/dL) 228 H 282 H (70-110) mg/dL Assessment and Plan Assessment: Acute diabetic ketoacidosis, blood glucose 1381, serum bicarb 7, anion gap 36, and ketone positive. Recovered Severe anion gap metabolic acidosis, secondary lactic acidosis and above, recovered Severe hyperkalemia, recovered Acute kidney injury recovered Acute leukocytosis, likely reactive, improving Diabetes mellitus type 1 History of diabetic neuropathy History of medication noncompliance History of chronic bronchial asthma, stable Chronic ongoing tobacco dependence History of anxiety/depression History of polysubstance abuse Plan: The patient was seen and evaluated Stable and on room air Labs and medications reviewed Recovered and transitioned to Lantus and Humalog Stable for discharge Follow-up closely with his primary care provider This patient was seen independently by the pulmonary nurse practitioner addressing pulmonary issues I have personally seen and examined the patient, performed the documentation and the assessment and plan as written. Number of minutes spent on the visit: 24 Dictation was produced using [employer] dictation software. Please excuse any grammatical, word or spelling errors."
[2024-08-07 14:43] VITALS: BP 124/81; PULSE 74; RESP 19; TEMP 98.4
[2024-08-07 16:22] LABS: Glucose,Whole Blood 144 mg/dL (70-110)
== END 2024-08-07 17:09 | disposition home or self-care (01) | DRG 637 ==
LOC: EC 19:57 → 2SICU 22:16 → 4SSUR 08-06 18:59
PROVIDERS: ADMIT Hospitalist; ATTEND Hospitalist
DX: E10.10 Type 1 diabetes mellitus with ketoacidosis without coma (principal); N17.0 Acute kidney failure with tubular necrosis; E10.43 Type 1 diabetes mellitus with diabetic autonomic (poly)neuropathy; F31.9 Bipolar disorder, unspecified; I10 Essential (primary) hypertension; Z79.4 Long term (current) use of insulin; K31.84 Gastroparesis; F41.9 Anxiety disorder, unspecified; E87.5 Hyperkalemia; F17.200 Nicotine dependence, unspecified, uncomplicated; E78.5 Hyperlipidemia, unspecified; Z79.899 Other long term (current) drug therapy; Z91.148 Patient's other noncompliance with medication regimen for other reason
CPT/HCPCS: 36415; 71045; 80048; 80051; 80053; 81001; 82009; 82565; 82803; 82947; 83036; 83605; 83690; 83735; 84100; 84443; 84484; 84520; 85025; 85027; 85610; 85730; 87636; 93005; 96360; 96361; 99285

== ENCOUNTER 2024-12-08 01:29 | Observation (INO) | payer OTHER, MEDICARE ==
[2024-12-08 01:33] LABS: Glucose,Whole Blood 574 mg/dL (70-110)
[2024-12-08 01:37] VITALS: RESP 18
[2024-12-08] MEDS ORDERED: DEXTROSE 50% SYRINGE 50 ML IVP PRN ×2 (01:48)
[2024-12-08] MEDS ORDERED: Magnesium Replacement Protocol 1 EACH MISC MISCELLANE PRN (01:48)
[2024-12-08] MEDS ORDERED: Potassium Replacement Protocol 1 EACH MISC MISCELLANE PRN (01:48)
[2024-12-08] MEDS: INSULIN REGULAR 100 UNIT/ML VIAL (IV) IV STA (02:10)
--- NOTE | 2024-12-08 02:10 | ED ---
Nausea/Vomiting/Diarrhea HPI - General Chief complaint: Nausea/Vomiting/Diarrhea Stated complaint: Vomitting Time Seen by Provider: 12/08/24 01:35 Source: patient, EMS Mode of arrival: EMS - History of Present Illness Initial comments: This patient is a 34-year-old man with history of diabetes and episodes of DKA who presents with complaint that he has had going on 2 days of nausea, vomiting, not been able to tolerate any oral intake. The patient states that he initially started having episodes of vomiting. After number of rounds of vomiting he started to have some epigastric pain. States similar to previous DKA. Patient had not noted any infectious symptoms prior to onset. No chest pain. MD complaint: nausea, vomiting, abdominal pain Onset/Timin -: days(s) Description of Vomiting: food contents, coffee grounds Associated Abdominal Pain: Yes Location: epigastric Radiation: none Severity: moderate Quality: cramping, sharp Consistency: intermittent Improves with: none Worsens with: vomiting Associated Symptoms: nausea/vomiting - Related Data Home Medications Medication Instructions Recorded Confirmed Insulin Aspart [NovoLOG] 10 units SQ DIRECTED 03/02/24 12/08/24 Insulin Glargine (Lantus) [Lantus 31 unit SQ DIRECTED 12/08/24 12/08/24 Vial] Allergies Allergy/AdvReac Type Severity Reaction Status Date / Time latex Allergy Rash/Hives Verified 12/08/24 09:35 Review of Systems ROS Statement: Those systems with pertinent positive or pertinent negative responses have been documented in the HPI. ROS Other: All systems not noted in ROS Statement are negative. Constitutional: Reports: weakness. Denies: fever, chills Respiratory: Denies: cough, dyspnea Cardiovascular: Denies: chest pain, palpitations, edema, syncope Gastrointestinal: Reports: abdominal pain, nausea, vomiting, hematemesis. Denies: diarrhea, melena, hematochezia Genitourinary: Denies: dysuria, hematuria Musculoskeletal: Denies: back pain Skin: Denies: rash Neurological: Denies: headache, weakness, numbness Past Medical History Past Medical History: Asthma, Diabetes Mellitus, Hyperlipidemia, Hypertension, Osteoarthritis (OA) Additional Past Medical History / Comment(s): IDDM type I, diabetic gastroparesis, neuropathy bilateral hands/fingers, migraines, arthrtitis fingers/knees, past R hand and L femur fractures. Previous DKA History of Any Multi-Drug Resistant Organisms: MRSA Date of last positivie culture/infection: 04/26/2014 MDRO Source:: Face Past Surgical History: Ear Surgery, Orthopedic Surgery Additional Past Surgical History / Comment(s): R hand surgery d/t fracture- pinned and pins since removed, L leg femur fracture with pin that eventually was removed, bilateral myringotomy with tubes/ear drum repairs.; Left pinky removal Past Anesthesia/Blood Transfusion Reactions: No Reported Reaction Past Psychological History: Anxiety, Bipolar, Depression Smoking Status: Current every day smoker Past Alcohol Use History: None Reported Past Drug Use History: Marijuana - Past Family History Father Family Medical History: Hyperlipidemia, Hypertension, Myocardial Infarction ([place]) Mother Family Medical History: COPD Additional Family Medical History / Comment(s): home O2, Brother(s) Family Medical History: No Reported History General Exam General appearance: alert, in distress Head exam: Present: atraumatic, normocephalic Eye exam: Present: normal appearance. Absent: scleral icterus, conjunctival injection ENT exam: Present: mucous membranes dry Neck exam: Present: normal inspection, full ROM Respiratory exam: Present: normal lung sounds bilaterally. Absent: respiratory distress, wheezes, rales, rhonchi, stridor, accessory muscle use Cardiovascular Exam: Present: normal rhythm, tachycardia, systolic murmur. Absent: diastolic murmur, rubs, gallop GI/Abdominal exam: Present: soft, tenderness. Absent: distended, guarding, rebound, rigid, mass, pulsatile mass, hernia Extremities exam: Present: normal inspection, normal capillary refill. Absent: pedal edema, calf tenderness Back exam: Present: normal inspection. Absent: CVA tenderness (R), CVA tende rness (L) Neurological exam: Present: alert Skin exam: Present: warm, dry, intact, normal color. Absent: rash Course Vital Signs 12/08/24 12/08/24 12/08/24 01:30 04:00 05:49 Temperature 98.4 F Pulse Rate 108 H 102 H 116 H Respiratory 18 18 18 Rate Blood Pressure 144/101 139/101 162/106 O2 Sat by Pulse 100 97 96 Oximetry 12/08/24 12/08/24 12/08/24 07:03 08:45 09:49 Temperature Pulse Rate 102 H 99 120 H Respiratory 18 18 18 Rate Blood Pressure 164/102 152/105 159/106 O2 Sat by Pulse 99 97 97 Oximetry 12/08/24 12/08/24 12/08/24 12:25 13:24 14:30 Temperature Pulse Rate 93 84 105 H Respiratory 18 18 18 Rate Blood Pressure 166/99 168/76 140/101 O2 Sat by Pulse 96 97 99 Oximetry 12/08/24 12/08/24 16:10 17:28 Temperature 98.8 F Pulse Rate 91 78 Respiratory 18 18 Rate Blood Pressure 150/70 158/99 O2 Sat by Pulse 96 97 Oximetry Medical Decision Making - Medical Decision Making Patient is a 34-year-old man presenting with nausea, vomiting, epigastric abdominal pain. The history and physical consistent with DKA. The labs confirm, and having elevated glucose and anion gap. The patient is started on fluids, insulin prior to the return of labs. This is continued once the results were known. Patient be admitted for further treatment The patient had chest x-ray that I interpreted as negative for acute infiltrate, pneumothorax, congestive heart failure Was pt. sent in by a medical professional or institution (, PA, PLAN EXAMINER, urgent care, hospital, or retirement...) When possible be specific @ -[No] Did you speak to anyone other than the patient for history (EMS, parent, family, police, friend...)? What history was obtained from this source @ -[No] Did you review nursing and triage notes (agree or disagree)? Why? @ -[I reviewed and agree with nursing and triage notes] Were old charts reviewed (outside hosp., previous admission, EMS record, old EKG, old radiological studies, urgent care reports/EKG's, retirement records)? Report findings @ -[Yes, old charts were reviewed] Differential Diagnosis (chest pain, altered mental status, abdominal pain women, abdominal pain men, vaginal bleeding, weakness, fever, dyspnea, syncope, headache, dizziness, GI bleed, back pain, seizure, CVA, palpatations, mental hea lth, musculoskeletal)? @ -[Differential Abdominal Pain Men: Appendicitis, cholecystitis, diverticulosis, ischemic bowel, pancreatitis, hepatitis, UTI, gastroenteritis, AAA, incarcerated hernia, bowel obstruction, constipation, inflammatory bowel, hepatitis, peptic ulcer disease, splenic infarction, perforated viscus, testicular torsion, this is not meant to be an all-inclusive list EKG interpreted by me (3pts min.). @ -[I interpreted as above] X-rays interpreted by me (1pt min.). @ -[I interpreted as above CT interpreted by me (1pt min.). @ -[None done] U/S interpreted by me (1pt. min.). @ -[None done] What testing was considered but not performed or refused? (CT, X-rays, U/S, labs)? Why? @ -[None] What meds were considered but not given or refused? Why? @ -[None] Did you discuss the management of the patient with other professionals (professionals i.e. DrJuliet, PA, PLAN EXAMINER, lab, RT, psych nurse, manager social work, replenishment specialist, teacher, assault amphibious vehicle officer, community case manager)? Give summary @ -[No] Was smoking cessation discussed for >3mins.? @ -[No] Was critical care preformed (if so, how long)? @ -[Yes, 35 minutes Were there social determinants of health that impacted care today? How? (Homelessness, low income, unemployed, alcoholism, drug addiction, transportation, low edu. Level, literacy, decrease access to med. care, mcc, rehab)? @ -[No] Was there de-escalation of care discussed even if they declined (Discuss DNR or withdrawal of care, Hospice)? DNR status @ -[No] What co-morbidities impacted this encounter? (DM, HTN, Smoking, COPD, CAD, Cancer, CVA, ARF, Chemo, Hep., AIDS, mental health diagnosis, sleep apnea, morbid obesity)? @ -[Diabetes Was patient admitted / discharged? Hospital course, mention meds given and route, prescriptions, significant lab abnormalities, going to OR and other pertinent info. @ -[As above Undiagnosed new problem with uncertain prognosis? @ -[No] Drug Therapy requiring intensive monitoring for toxicity (Heparin, Nitro, Insulin, Cardizem)? @ -[Insulin Were any procedures done? @ -[No] Diagnosis/symptom? @ -[Acute diabetic ketoacidosis Acute, or Chronic, or Acute on Chronic? @ -[Acute Uncomplicated (without systemic symptoms) or Complicated (systemic symptoms)? @ -[Complicated Side effects of treatment? @ -[No] Exacerbation, Progression, or Severe Exacerbation? @ -[No] Poses a threat to life or bodily function? How? (Chest pain, [place], [place], pneumonia, PE, COPD, DKA, ARF, appy, cholecystitis, CVA, Diverticulitis, Homicidal, Suicidal, threat to staff... and all critical care pts) @ -[Yes, there is significant morbidity and mortality associated with acute diabetic ketoacidosis All treatments are based on ideal body weight as in ED triage - Lab Data Result diagrams: 12/08/24 01:58 12/08/24 16:24 Lab Results 12/08/24 12/08/24 12/08/24 Range/Units 01:32 01:58 01:58 WBC 25.72 H (4.50-10.00) 10*3/uL RBC 5.49 (4.40-5.60) 10*6/uL Hgb 16.6 (13.0-17.0) g/dL Hct 50.0 (39.6-50.0) % MCV 91.1 (80.0-97.0) fL MCH 30.2 (27.0-32.0) pg MCHC 33.2 (32.0-37.0) g/dL Plt Count 454 H (140-440) 10*3/uL MPV 11.9 (9.5-12.2) fL Immature Gran % (Auto) 0.5 % Neutrophils % 87.8 % Lymphocytes % 5.8 % Monocytes % 5.7 % Eosinophils % 0.0 % Basophils % 0.2 % Immature Gran # 0.14 H (0.00-0.04) 10*3/uL Neutrophils # 22.59 H (1.80-7.70) 10*3/uL Lymphocytes # 1.48 (0.90-5.00) 10*3/uL Monocytes # 1.46 H (0.20-1.00) 10*3/uL Eosinophils # 0.00 L (0.04-0.35) 10*3/uL Basophils # 0.05 (0.00-0.10) 10*3/uL Sodium 147 H (137-145) mmol/L Potassium 4.6 (3.5-5.1) mmol/L Chloride 91 L (98-107) mmol/L Carbon Dioxide 28 (22-30) mmol/L Anion Gap 28 mmol/L BUN 50 H (9-20) mg/dL Creatinine 1.13 (0.66-1.25) mg/dL Est GFR (CKD-EPI)AfAm >90 (>60 ml/min/1.73 sqM) Est GFR (CKD-EPI)NonAf 85 (>60 ml/min/1.73 sqM) Glucose 594 H* (74-99) mg/dL POC Glucose (mg/dL) 574 H* (70-110) mg/dL POC Glu [employer] Sales Consultant ID Dominic Grace Lactic Ac Sepsis Rflx Plasma Lactic Acid Neymar (0.7-2.0) mmol/L Calcium 10.5 H (8.4-10.2) mg/dL Magnesium 2.5 H (1.6-2.3) mg/dL Total Bilirubin 0.9 (0.2-1.3) mg/dL AST 21 (17-59) U/L ALT 20 (4-49) U/L Alkaline Phosphatase 204 H (38-126) U/L Total Protein 9.5 H (6.3-8.2) g/dL Albumin 5.6 H (3.5-5.0) g/dL Urine Color Urine Appearance (Clear) Urine pH (5.0-8.0) Ur Specific [place] (1.001-1.035) Urine Protein (Negative) Urine Glucose (UA) (Negative) Urine Ketones (Negative) Urine Blood (Negative) Urine Nitrite (Negative) Urine Bilirubin (Negative) Urine Urobilinogen (<2.0) mg/dL Ur Leukocyte Esterase (Negative) Acetone, Qual Positive (Negative) 12/08/24 12/08/24 12/08/24 Range/Units 01:58 02:29 03:00 WBC (4.50-10.00) 10*3/uL RBC (4.40-5.60) 10*6/uL Hgb (13.0-17.0) g/dL Hct (39.6-50.0) % MCV (80.0-97.0) fL MCH (27.0-32.0) pg MCHC (32.0-37.0) g/dL Plt Count (140-440) 10*3/uL MPV (9.5-12.2) fL Immature Gran % (Auto) % Neutrophils % % Lymphocytes % % Monocytes % % Eosinophils % % Basophils % % Immature Gran # (0.00-0.04) 10*3/uL Neutrophils # (1.80-7.70) 10*3/uL Lymphocytes # (0.90-5.00) 10*3/uL Monocytes # (0.20-1.00) 10*3/uL Eosinophils # (0.04-0.35) 10*3/uL Basophils # (0.00-0.10) 10*3/uL Sodium (137-145) mmol/L Potassium (3.5-5.1) mmol/L Chloride (98-107) mmol/L Carbon Dioxide (22-30) mmol/L Anion Gap mmol/L BUN (9-20) mg/dL Creatinine (0.66-1.25) mg/dL Est GFR (CKD-EPI)AfAm (>60 ml/min/1.73 sqM) Est GFR (CKD-EPI)NonAf (>60 ml/min/1.73 sqM) Glucose (74-99) mg/dL POC Glucose (mg/dL) 493 H (70-110) mg/dL POC Glu [employer] Sales Consultant ID Maxifeld Elsie Lactic Ac Sepsis Rflx Plasma Lactic Acid Neymar 4.2 H* (0.7-2.0) mmol/L Calcium (8.4-10.2) mg/dL Magnesium (1.6-2.3) mg/dL Total Bilirubin (0.2-1.3) mg/dL AST (17-59) U/L ALT (4-49) U/L Alkaline Phosphatase (38-126) U/L Total Protein (6.3-8.2) g/dL Albumin (3.5-5.0) g/dL Urine Color Colorless Urine Appearance Clear (Clear) Urine pH 5.5 (5.0-8.0) Ur Specific [place] 1.033 (1.001-1.035) Urine Protein Trace H (Negative) Urine Glucose (UA) 4+ H (Negative) Urine Ketones 3+ H (Negative) Urine Blood Negative (Negative) Urine Nitrite Negative (Negative) Urine Bilirubin Negative (Negative) Urine Urobilinogen <2.0 (<2.0) mg/dL Ur Leukocyte Esterase Negative (Negative) Acetone, Qual (Negative) 12/08/24 12/08/24 12/08/24 Range/Units 03:31 04:32 04:35 WBC (4.50-10.00) 10*3/uL RBC (4.40-5.60) 10*6/uL Hgb (13.0-17.0) g/dL Hct (39.6-50.0) % MCV (80.0-97.0) fL MCH (27.0-32.0) pg MCHC (32.0-37.0) g/dL Plt Count (140-440) 10*3/uL MPV (9.5-12.2) fL Immature Gran % (Auto) % Neutrophils % % Lymphocytes % % Monocytes % % Eosinophils % % Basophils % % Immature Gran # (0.00-0.04) 10*3/uL Neutrophils # (1.80-7.70) 10*3/uL Lymphocytes # (0.90-5.00) 10*3/uL Monocytes # (0.20-1.00) 10*3/uL Eosinophils # (0.04-0.35) 10*3/uL Basophils # (0.00-0.10) 10*3/uL Sodium (137-145) mmol/L Potassium (3.5-5.1) mmol/L Chloride (98-107) mmol/L Carbon Dioxide (22-30) mmol/L Anion Gap mmol/L BUN (9-20) mg/dL Creatinine (0.66-1.25) mg/dL Est GFR (CKD-EPI)AfAm (>60 ml/min/1.73 sqM) Est GFR (CKD-EPI)NonAf (>60 ml/min/1.73 sqM) Glucose (74-99) mg/dL POC Glucose (mg/dL) 310 H 257 H (70-110) mg/dL POC Glu [employer] Sales Consultant ID Maxifeld Elsie Achatz Grace Lactic Ac Sepsis Rflx Y Plasma Lactic Acid Neymar (0.7-2.0) mmol/L Calcium (8.4-10.2) mg/dL Magnesium (1.6-2.3) mg/dL Total Bilirubin (0.2-1.3) mg/dL AST (17-59) U/L ALT (4-49) U/L Alkaline Phosphatase (38-126) U/L Total Protein (6.3-8.2) g/dL Albumin (3.5-5.0) g/dL Urine Color Urine Appearance (Clear) Urine pH (5.0-8.0) Ur Specific [place] (1.001-1.035) Urine Protein (Negative) Urine Glucose (UA) (Negative) Urine Ketones (Negative) Urine Blood (Negative) Urine Nitrite (Negative) Urine Bilirubin (Negative) Urine Urobilinogen (<2.0) mg/dL Ur Leukocyte Esterase (Negative) Acetone, Qual (Negative) 12/08/24 Range/Units 05:44 WBC (4.50-10.00) 10*3/uL RBC (4.40-5.60) 10*6/uL Hgb (13.0-17.0) g/dL Hct (39.6-50.0) % MCV (80.0-97.0) fL MCH (27.0-32.0) pg MCHC (32.0-37.0) g/dL Plt Count (140-440) 10*3/uL MPV (9.5-12.2) fL Immature Gran % (Auto) % Neutrophils % % Lymphocytes % % Monocytes % % Eosinophils % % Basophils % % Immature Gran # (0.00-0.04) 10*3/uL Neutrophils # (1.80-7.70) 10*3/uL Lymphocytes # (0.90-5.00) 10*3/uL Monocytes # (0.20-1.00) 10*3/uL Eosinophils # (0.04-0.35) 10*3/uL Basophils # (0.00-0.10) 10*3/uL Sodium (137-145) mmol/L Potassium (3.5-5.1) mmol/L Chloride (98-107) mmol/L Carbon Dioxide (22-30) mmol/L Anion Gap mmol/L BUN (9-20) mg/dL Creatinine (0.66-1.25) mg/dL Est GFR (CKD-EPI)AfAm (>60 ml/min/1.73 sqM) Est GFR (CKD-EPI)NonAf (>60 ml/min/1.73 sqM) Glucose (74-99) mg/dL POC Glucose (mg/dL) 202 H (70-110) mg/dL POC Glu [employer] Sales Consultant ID Maxifeld Elsie Lactic Ac Sepsis Rflx Plasma Lactic Acid Neymar (0.7-2.0) mmol/L Calcium (8.4-10.2) mg/dL Magnesium (1.6-2.3) mg/dL Total Bilirubin (0.2-1.3) mg/dL AST (17-59) U/L ALT (4-49) U/L Alkaline Phosphatase (38-126) U/L Total Protein (6.3-8.2) g/dL Albumin (3.5-5.0) g/dL Urine Color Urine Appearance (Clear) Urine pH (5.0-8.0) Ur Specific [place] (1.001-1.035) Urine Protein (Negative) Urine Glucose (UA) (Negative) Urine Ketones (Negative) Urine Blood (Negative) Urine Nitrite (Negative) Urine Bilirubin (Negative) Urine Urobilinogen (<2.0) mg/dL Ur Leukocyte Esterase (Negative) Acetone, Qual (Negative) - EKG Data -: EKG Interpreted by Ri EKG shows normal: sinus rhythm, axis (Normal), QRS complexes (Possible incomplete right bundle branch block.) Rate: normal (Rate 93 bpm) Interpretation: nonspecific ST-T wave changes Disposition Clinical Impression: Dehydration, Diabetic ketoacidosis Disposition: ADMITTED IP TO THIS HOSP Condition: Serious Is patient prescribed a controlled substance at d/c from ED?: No
[2024-12-08] MEDS: SODIUM CHLORIDE 0.9% 1,000 ML IV ONE (02:12)
[2024-12-08] MEDS: METOCLOPRAMIDE 5 MG/ML 2 ML VIAL IVP STA (02:15)
[2024-12-08] MEDS: INSULIN REGULAR 100 UNIT in SODIUM CHLORIDE 0.9% 100 ML IV SCH (02:20)
[2024-12-08 02:30] LABS: Glucose,Whole Blood 493 mg/dL (70-110)
[2024-12-08 02:44] LABS: Basophils # (A) 0.05 10*3/uL (0.00-0.10); Basophils % (A) 0.2 %; Eosinophils # (A) 0.00 10*3/uL (0.04-0.35); Eosinophils % (A) 0.0 %; HCT 50.0 % (39.6-50.0); HGB 16.6 g/dL (13.0-17.0); Lymphocytes # (A) 1.48 10*3/uL (0.90-5.00); Lymphocytes % (A) 5.8 %; MCH 30.2 pg (27.0-32.0); MCHC 33.2 g/dL (32.0-37.0); MCV 91.1 fL (80.0-97.0); Monocytes # (A) 1.46 10*3/uL (0.20-1.00); Monocytes % (A) 5.7 %; Neutrophils # (A) 22.59 10*3/uL (1.80-7.70); Neutrophils % (A) 87.8 %; Platelet Count 454 10*3/uL (140-440); RBC 5.49 10*6/uL (4.40-5.60); RDW 13.7 % (11.5-14.5); WBC 25.72 10*3/uL (4.50-10.00)
[2024-12-08 03:02] LABS: ALT 20 U/L (4-49); AST 21 U/L (17-59); African American GFR (CKD) >90 (>60 ml/min/1.73 sqM); Albumin 5.6 g/dL (3.5-5.0); Alkaline Phosphatase 204 U/L (38-126); Anion Gap 28 mmol/L; Blood Urea Nitrogen 50 mg/dL (9-20); Calcium 10.5 mg/dL (8.4-10.2); Carbon Dioxide 28 mmol/L (22-30); Chloride 91 mmol/L (98-107); Magnesium 2.5 mg/dL (1.6-2.3); Non-African American GFR(CKD) 85 (>60 ml/min/1.73 sqM); Potassium 4.6 mmol/L (3.5-5.1); Sodium 147 mmol/L (137-145); Total Protein 9.5 g/dL (6.3-8.2)
[2024-12-08 03:09] LABS: Bilirubin,Urine Negative (Negative); Blood,Urine Negative (Negative); Color,Urine Colorless; Glucose,Urine (UA) 4+ (Negative); Leukocyte Esterase,Urine Negative (Negative); Nitrite,Urine Negative (Negative); PH, Urine 5.5 (5.0-8.0); Protein,Urine Trace (Negative); Specific Gravity,Urine 1.033 (1.001-1.035); Urobilinogen,Urine <2.0 mg/dL (<2.0)
[2024-12-08 03:28] LABS: Glucose 594 mg/dL (74-99)
[2024-12-08 03:33] LABS: Glucose,Whole Blood 310 mg/dL (70-110)
[2024-12-08 04:08] LABS: Ketones,Urine 3+ (Negative)
[2024-12-08] MEDS: SODIUM CHLORIDE 0.9% 1,000 ML IV SCH (04:15)
[2024-12-08 04:33] LABS: Glucose,Whole Blood 257 mg/dL (70-110)
--- NOTE | 2024-12-08 04:58 | XR ---
EXAM: XR Chest, 1 View CLINICAL HISTORY: DKA TECHNIQUE: Frontal view of the chest. COMPARISON: 08/05/2024 FINDINGS: Lungs: Unremarkable. No consolidation. Pleural space: Unremarkable. Mediastinum: Unremarkable. Normal mediastinal contour. Bones/joints: No acute findings. IMPRESSION: No acute findings.
[2024-12-08] MEDS: D5-0.45% NACL WITH KCL 20MEQ/L 1,000 ML IV SCH (05:40)
[2024-12-08 05:45] LABS: Glucose,Whole Blood 202 mg/dL (70-110)
[2024-12-08 07:03] LABS: Glucose,Whole Blood 198 mg/dL (70-110)
[2024-12-08 08:05] LABS: African American GFR (CKD) >90 (>60 ml/min/1.73 sqM); Anion Gap 13 mmol/L; Blood Urea Nitrogen 51 mg/dL (9-20); Carbon Dioxide 33 mmol/L (22-30); Chloride 106 mmol/L (98-107); Glucose 185 mg/dL (74-99); Non-African American GFR(CKD) >90 (>60 ml/min/1.73 sqM); Potassium 3.9 mmol/L (3.5-5.1); Sodium 152 mmol/L (137-145)
[2024-12-08 08:08] LABS: African American GFR (CKD) >90 (>60 ml/min/1.73 sqM); Anion Gap 16 mmol/L; Blood Urea Nitrogen 50 mg/dL (9-20); Carbon Dioxide 33 mmol/L (22-30); Chloride 105 mmol/L (98-107); Glucose 188 mg/dL (74-99); Non-African American GFR(CKD) >90 (>60 ml/min/1.73 sqM); Potassium 3.6 mmol/L (3.5-5.1); Sodium 154 mmol/L (137-145)
[2024-12-08 08:24] LABS: Glucose,Whole Blood 135 mg/dL (70-110)
[2024-12-08 09:51] LABS: Glucose,Whole Blood 126 mg/dL (70-110)
[2024-12-08 11:00] LABS: Glucose,Whole Blood 142 mg/dL (70-110)
--- NOTE | 2024-12-08 11:09 | P.HPIM ---
History of Present Illness 34-year-old male came in with complaints of nausea vomiting abdominal pain found to be in DKA and leukocytosis and multiple electrolyte abnormalities secondary to diabetic ketoacidosis. Patient blood sugar was around 600 on admission with anion gap of 28. Presently gap has come down but the patient is hyponatremic. Patient had lactic acidosis on admission. There is no evidence of infection at this time patient has not any symptoms of UTI, denies any cough. Patient last hemoglobin A1c in month of August is around 11 although patient states she is compliant with diet and he believes stress is the reason why he went into DKA. Patient does not want any of his insulin regimen to be changed. Patient barely follows up with PCP because of lack of insurance. REVIEW OF SYSTEMS: All other systems are negative except those mentioned in the HPI PHYSICAL EXAMINATION: GENERAL: The patient is alert and oriented x3, not in any acute distress. Well developed, well nourished. HEENT: Pupils are round and equally reacting to light. EOMI. No scleral icterus. No conjunctival pallor. Normocephalic, atraumatic. No pharyngeal erythema. No thyromegaly. CARDIOVASCULAR: S1 and S2 present. No murmurs, rubs, or gallops. PULMONARY: Chest is clear to auscultation, no wheezing or crackles. ABDOMEN: Soft, nontender, nondistended, normoactive bowel sounds. No palpable organomegaly. MUSCULOSKELETAL: No joint swelling or deformity. EXTREMITIES: No cyanosis, clubbing, or pedal edema. NEUROLOGICAL: Gross neurological examination did not reveal any focal deficits. SKIN: No rashes. Assessment and plan -Diabetic ketoacidosis: Patient anion gap significantly improved but is still slightly higher. Patient will be transition to subcutaneous insulin and if blood sugars are doing okay and if her anion gap resolves patient will be discharged later today. - Hyponatremia hypovolemic hyponatremia received IV fluids will change him to half-normal saline history of normal saline after discontinuation of breath. - Possible noncompliance with medications counseling was provided. Patient does not want his insulin regimen to be changed patient will be discharged on the same insulin regimen and the patient was asked to follow-up with PCP at least 1 time after discharge. - Lactulose doses secondary to intravascular volume depletion which improved at this time -Leukocytosis reactive secondary to DKA Patient will be discharged later today. Past Medical History Past Medical History: Asthma, Diabetes Mellitus, Hyperlipidemia, Hypertension, Osteoarthritis (OA) Additional Past Medical History / Comment(s): IDDM type I, diabetic gastroparesis, neuropathy bilateral hands/fingers, migraines, arthrtitis fingers/knees, past R hand and L femur fractures. Previous DKA History of Any Multi-Drug Resistant Organisms: MRSA Date of last positivie culture/infection: 04/26/2014 MDRO Source:: Face Past Surgical History: Ear Surgery, Orthopedic Surgery Additional Past Surgical History / Comment(s): R hand surgery d/t fracture-pinne d and pins since removed, L leg femur fracture with pin that eventually was removed, bilateral myringotomy with tubes/ear drum repairs.; Left pinky removal Past Anesthesia/Blood Transfusion Reactions: No Reported Reaction Past Psychological History: Anxiety, Bipolar, Depression Smoking Status: Current every day smoker Past Alcohol Use History: None Reported Past Drug Use History: Marijuana - Past Family History Father Family Medical History: Hyperlipidemia, Hypertension, Myocardial Infarction ([place]) Mother Family Medical History: COPD Additional Family Medical History / Comment(s): home O2, Brother(s) Family Medical History: No Reported History Medications and Allergies Home Medications Medication Instructions Recorded Confirmed Type Insulin Aspart [NovoLOG] 10 units SQ DIRECTED 03/02/24 12/08/24 History Insulin Glargine (Lantus) [Lantus 31 unit SQ DIRECTED 12/08/24 12/08/24 History Vial] Allergies Allergy/AdvReac Type Severity Reaction Status Date / Time latex Allergy Rash/Hives Verified 12/08/24 09:35 Physical Exam Vitals: Vital Signs Temp Pulse Resp BP Pulse Ox 12/08/24 09:49 120 H 18 159/106 97 12/08/24 08:45 99 18 152/105 97 12/08/24 07:03 102 H 18 164/102 99 12/08/24 05:49 116 H 18 162/106 96 12/08/24 04:00 102 H 18 139/101 97 12/08/24 01:30 98.4 F 108 H 18 144/101 100 Intake and Output 12/07/24 12/08/24 12/08/24 22:59 06:59 14:59 Intake Total 16.608 34.181 Balance 16.608 34.181 Intake: Intake, IV Titration 16.608 34.181 Amount Insulin Regular 100 unit 16.608 34.181 In Sodium Chloride 0.9% 100 ml @ 0.1 UNITS/KG/HR 6.643 mls/hr IV .[id number] [facility] Rx#:[id number] Other: Weight 65.771 kg Results CBC & Chem 7: 12/08/24 01:58 12/08/24 07:07 Labs: Abnormal Lab Results - Last 24 Hours (Table) 12/08/24 12/08/24 12/08/24 Range/Units 01:32 01:58 01:58 WBC 25.72 H (4.50-10.00) 10*3/uL Plt Count 454 H (140-440) 10*3/uL Immature Gran # 0.14 H (0.00-0.04) 10*3/uL Neutrophils # 22.59 H (1.80-7.70) 10*3/uL Monocytes # 1.46 H (0.20-1.00) 10*3/uL Eosinophils # 0.00 L (0.04-0.35) 10*3/uL Sodium 147 H (137-145) mmol/L Chloride 91 L (98-107) mmol/L Carbon Dioxide (22-30) mmol/L BUN 50 H (9-20) mg/dL Glucose 594 H* (74-99) mg/dL POC Glucose (mg/dL) 574 H* (70-110) mg/dL Plasma Lactic Acid Neymar (0.7-2.0) mmol/L Calcium 10.5 H (8.4-10.2) mg/dL Magnesium 2.5 H (1.6-2.3) mg/dL Alkaline Phosphatase 204 H (38-126) U/L Total Protein 9.5 H (6.3-8.2) g/dL Albumin 5.6 H (3.5-5.0) g/dL Urine Protein (Negative) Urine Glucose (UA) (Negative) Urine Ketones (Negative) 12/08/24 12/08/24 12/08/24 Range/Units 01:58 02:29 03:00 WBC (4.50-10.00) 10*3/uL Plt Count (140-440) 10*3/uL Immature Gran # (0.00-0.04) 10*3/uL Neutrophils # (1.80-7.70) 10*3/uL Monocytes # (0.20-1.00) 10*3/uL Eosinophils # (0.04-0.35) 10*3/uL Sodium (137-145) mmol/L Chloride (98-107) mmol/L Carbon Dioxide (22-30) mmol/L BUN (9-20) mg/dL Glucose (74-99) mg/dL POC Glucose (mg/dL) 493 H (70-110) mg/dL Plasma Lactic Acid Neymar 4.2 H* (0.7-2.0) mmol/L Calcium (8.4-10.2) mg/dL Magnesium (1.6-2.3) mg/dL Alkaline Phosphatase (38-126) U/L Total Protein (6.3-8.2) g/dL Albumin (3.5-5.0) g/dL Urine Protein Trace H (Negative) Urine Glucose (UA) 4+ H (Negative) Urine Ketones 3+ H (Negative) 12/08/24 12/08/24 12/08/24 Range/Units 03:31 04:32 05:44 WBC (4.50-10.00) 10*3/uL Plt Count (140-440) 10*3/uL Immature Gran # (0.00-0.04) 10*3/uL Neutrophils # (1.80-7.70) 10*3/uL Monocytes # (0.20-1.00) 10*3/uL Eosinophils # (0.04-0.35) 10*3/uL Sodium (137-145) mmol/L Chloride (98-107) mmol/L Carbon Dioxide (22-30) mmol/L BUN (9-20) mg/dL Glucose (74-99) mg/dL POC Glucose (mg/dL) 310 H 257 H 202 H (70-110) mg/dL Plasma Lactic Acid Neymar (0.7-2.0) mmol/L Calcium (8.4-10.2) mg/dL Magnesium (1.6-2.3) mg/dL Alkaline Phosphatase (38-126) U/L Total Protein (6.3-8.2) g/dL Albumin (3.5-5.0) g/dL Urine Protein (Negative) Urine Glucose (UA) (Negative) Urine Ketones (Negative) 12/08/24 12/08/24 12/08/24 Range/Units 07:02 07:07 07:07 WBC (4.50-10.00) 10*3/uL Plt Count (140-440) 10*3/uL Immature Gran # (0.00-0.04) 10*3/uL Neutrophils # (1.80-7.70) 10*3/uL Monocytes # (0.20-1.00) 10*3/uL Eosinophils # (0.04-0.35) 10*3/uL Sodium 154 H 152 H (137-145) mmol/L Chloride (98-107) mmol/L Carbon Dioxide 33 H 33 H (22-30) mmol/L BUN 50 H 51 H (9-20) mg/dL Glucose 188 H 185 H (74-99) mg/dL POC Glucose (mg/dL) 198 H (70-110) mg/dL Plasma Lactic Acid Neymar (0.7-2.0) mmol/L Calcium (8.4-10.2) mg/dL Magnesium (1.6-2.3) mg/dL Alkaline Phosphatase (38-126) U/L Total Protein (6.3-8.2) g/dL Albumin (3.5-5.0) g/dL Urine Protein (Negative) Urine Glucose (UA) (Negative) Urine Ketones (Negative) 12/08/24 12/08/24 12/08/24 Range/Units 07:07 08:23 09:49 WBC (4.50-10.00) 10*3/uL Plt Count (140-440) 10*3/uL Immature Gran # (0.00-0.04) 10*3/uL Neutrophils # (1.80-7.70) 10*3/uL Monocytes # (0.20-1.00) 10*3/uL Eosinophils # (0.04-0.35) 10*3/uL Sodium (137-145) mmol/L Chloride (98-107) mmol/L Carbon Dioxide (22-30) mmol/L BUN (9-20) mg/dL Glucose (74-99) mg/dL POC Glucose (mg/dL) 135 H 126 H (70-110) mg/dL Plasma Lactic Acid Neymar 2.2 H* (0.7-2.0) mmol/L Calcium (8.4-10.2) mg/dL Magnesium (1.6-2.3) mg/dL Alkaline Phosphatase (38-126) U/L Total Protein (6.3-8.2) g/dL Albumin (3.5-5.0) g/dL Urine Protein (Negative) Urine Glucose (UA) (Negative) Urine Ketones (Negative) 12/08/24 Range/Units 10:58 WBC (4.50-10.00) 10*3/uL Plt Count (140-440) 10*3/uL Immature Gran # (0.00-0.04) 10*3/uL Neutrophils # (1.80-7.70) 10*3/uL Monocytes # (0.20-1.00) 10*3/uL Eosinophils # (0.04-0.35) 10*3/uL Sodium (137-145) mmol/L Chloride (98-107) mmol/L Carbon Dioxide (22-30) mmol/L BUN (9-20) mg/dL Glucose (74-99) mg/dL POC Glucose (mg/dL) 142 H (70-110) mg/dL Plasma Lactic Acid Neymar (0.7-2.0) mmol/L Calcium (8.4-10.2) mg/dL Magnesium (1.6-2.3) mg/dL Alkaline Phosphatase (38-126) U/L Total Protein (6.3-8.2) g/dL Albumin (3.5-5.0) g/dL Urine Protein (Negative) Urine Glucose (UA) (Negative) Urine Ketones (Negative)
[2024-12-08 11:53] LABS: Glucose,Whole Blood 139 mg/dL (70-110)
--- NOTE | 2024-12-08 11:57 | P.DS ---
Providers Date of admission: 12/08/24 06:01 Attending physician: Wayne Moe Primary care physician: [facility] Course: 34-year-old male came in with complaints of nausea vomiting abdominal pain found to be in DKA and leukocytosis and multiple electrolyte abnormalities secondary to diabetic ketoacidosis. Patient blood sugar was around 600 on admission with anion gap of 28. Presently gap has come down but the patient is hyponatremic. Patient had lactic acidosis on admission. There is no evidence of infection at this time patient has not any symptoms of UTI, denies any cough. Patient last hemoglobin A1c in month of August is around 11 although patient states she is compliant with diet and he believes stress is the reason why he went into DKA. Patient does not want any of his insulin regimen to be changed. Patient barely follows up with PCP because of lack of insurance. REVIEW OF SYSTEMS: All other systems are negative except those mentioned in the HPI PHYSICAL EXAMINATION: GENERAL: The patient is alert and oriented x3, not in any acute distress. Well developed, well nourished. HEENT: Pupils are round and equally reacting to light. EOMI. No scleral icterus. No conjunctival pallor. Normocephalic, atraumatic. No pharyngeal erythema. No thyromegaly. CARDIOVASCULAR: S1 and S2 present. No murmurs, rubs, or gallops. PULMONARY: Chest is clear to auscultation, no wheezing or crackles. ABDOMEN: Soft, nontender, nondistended, normoactive bowel sounds. No palpable organomegaly. MUSCULOSKELETAL: No joint swelling or deformity. EXTREMITIES: No cyanosis, clubbing, or pedal edema. NEUROLOGICAL: Gross neurological examination did not reveal any focal deficits. SKIN: No rashes. Assessment and plan -Diabetic ketoacidosis: Patient anion gap significantly improved but is still slightly higher. Patient will be transition to subcutaneous insulin and if blood sugars are doing okay and if her anion gap resolves patient will be discharged later today. - Hyponatremia hypovolemic hyponatremia received IV fluids will change him to half-normal saline history of normal saline after discontinuation of breath. - Possible noncompliance with medications counseling was provided. Patient does not want his insulin regimen to be changed patient will be discharged on the same insulin regimen and the patient was asked to follow-up with PCP at least 1 time after discharge. - Lactulose doses secondary to intravascular volume depletion which improved at this time -Leukocytosis reactive secondary to DKA Patient will be discharged later today. Patient Condition at Discharge: Serious Plan - Discharge Summary New Discharge Prescriptions: No Action Insulin Aspart [NovoLOG] 10 units SQ DIRECTED Insulin Glargine (Lantus) [Lantus Vial] 31 unit SQ DIRECTED Discharge Medication List Insulin Aspart [NovoLOG] 10 units SQ DIRECTED 03/02/24 [History] Insulin Glargine (Lantus) [Lantus Vial] 31 unit SQ DIRECTED 12/08/24 [History] Follow up Appointment(s)/Referral(s): Supriya Edward MD [Primary Care Provider] - 3 Days Discharge Disposition: HOME SELF-CARE
[2024-12-08] MEDS: INSULIN LISPRO (HumaLOG) 100 UNIT/ML 10 mL VL SQ SCH ×2 (12:14→12:23)
[2024-12-08 13:26] LABS: Glucose,Whole Blood 109 mg/dL (70-110)
[2024-12-08] MEDS: SODIUM CHLORIDE 0.45% 1,000 ML IV SCH (13:28)
[2024-12-08 14:31] LABS: Glucose,Whole Blood 72 mg/dL (70-110)
[2024-12-08 16:02] LABS: Glucose,Whole Blood 168 mg/dL (70-110)
[2024-12-08 16:42] LABS: African American GFR (CKD) >90 (>60 ml/min/1.73 sqM); Anion Gap 9 mmol/L; Blood Urea Nitrogen 34 mg/dL (9-20); Calcium 8.9 mg/dL (8.4-10.2); Carbon Dioxide 32 mmol/L (22-30); Chloride 101 mmol/L (98-107); Glucose 177 mg/dL (74-99); Non-African American GFR(CKD) >90 (>60 ml/min/1.73 sqM); Potassium 3.8 mmol/L (3.5-5.1); Sodium 142 mmol/L (137-145)
[2024-12-08 17:30] VITALS: BP 158/99; PULSE 78; TEMP 98.8
[2024-12-08] MEDS ORDERED: INSULIN GLARGINE (LANTUS) 100 UNIT/ML SYR SQ SCH (21:00)
== END 2024-12-08 17:28 | disposition home or self-care (01) ==
LOC: EC 01:29 → INTOOBSV 06:01 → 3SCARD 06:01
PROVIDERS: ADMIT Hospitalist; ATTEND Hospitalist
DX: E10.10 Type 1 diabetes mellitus with ketoacidosis without coma (principal); E86.1 Hypovolemia; E78.5 Hyperlipidemia, unspecified; I10 Essential (primary) hypertension; E10.43 Type 1 diabetes mellitus with diabetic autonomic (poly)neuropathy; K31.84 Gastroparesis; F31.9 Bipolar disorder, unspecified; F41.9 Anxiety disorder, unspecified; F17.200 Nicotine dependence, unspecified, uncomplicated; Z59.71 Insufficient health insurance coverage; Z79.4 Long term (current) use of insulin; Z91.040 Latex allergy status
CPT/HCPCS: 36415; 71045; 80048; 80051; 80053; 81003; 82009; 82565; 82947; 83605; 83735; 84100; 84520; 85025; 93005; 96361; 96365; 96366; 96374; 96375; 99291